=== PATIENT | male | born 1960 | race African-American/Black ===

== ENCOUNTER 2016-10-17 18:11 | Emergency (ER) | payer MEDICARE ==
[~2016-10-17] VITALS: Ht 170.2 cm; Wt 90.0 kg
[~2016-10-17 18:11] MED LIST: ALDA2525 PO; BACL10TA PO; CHOL4 PO; DOCU1CAP39 PO; KLOR20 PO; LORTA5 PO; MECL25 PO; MVI PO; NEUR100C PO; NIFE1TAB86 PO
[2016-10-17 18:28] VITALS: BP 177/64; PULSE 68; RESP 18; TEMP 98.4; O2SAT 99
--- NOTE | 2016-10-17 18:30 | PD ---
HPI Chief Complaint: Headache Time Seen by Provider: 18:30 Travel History International Travel<30 days: No Contact w/Intl Traveler<30days: No Traveled to known affect area: No History of Present Illness HPI 56-year-old male with no significant medical history presents to the emergency department today for evaluation of headache since this morning. Patient states that approximately an 8 out of 10, constant and generalized. Denies any focal deficits weakness. No visual disturbances. No recent illnesses, fever, or chills. No nuchal rigidity. Denies any nausea or vomiting. Per [facility] report, family is concerned and patient's increased lethargy throughout the day. PFSH Past Medical History Autoimmune Disease: No Cancer: No Cardiovascular Problems: Yes Diminished Hearing: No Endocrine: No Genitourinary: Yes (ENLARGED PROSTATE) Immune Disorder: No Inguinal Hernia: Yes (REPAIRED) Musculoskeletal: Yes Neurologic: Yes Psychiatric: Yes (MENTALLY RETARDED) Reproductive: No Respiratory: No Past Surgical History Body Medical Devices: CERVICAL PINS PLACED Neurologic Surgery: Yes (SURGERY ON HIS NECK?) Social History Alcohol Use: No Tobacco Use: No Substance Use: No Allergies-Medications (Allergen,Severity, Reaction): Coded Allergies: No Known Allergies (Verified , 10/17/16) Reported Meds & Prescriptions Reported Meds & Active Scripts Active No Active Prescriptions or Reported Medications Review of Systems Except as stated in HPI: all other systems reviewed are Neg Physical Exam Narrative GENERAL: Well-nourished male patient, lying in bed in no acute distress SKIN: Focused skin assessment warm/dry. HEAD: Atraumatic. Normocephalic. EYES: Pupils equal and round. No scleral icterus. No injection or drainage. ENT: No nasal bleeding or discharge. Mucous membranes pink and moist. NECK: Trachea midline. No JVD. CARDIOVASCULAR: Regular rate and rhythm. No murmur appreciated. RESPIRATORY: No accessory muscle use. Clear to auscultation. Breath sounds equal bilaterally. GASTROINTESTINAL: Abdomen soft, non-tender, nondistended. Hepatic and splenic margins not palpable. MUSCULOSKELETAL: No obvious deformities. No clubbing. No cyanosis. No edema. There is slight left upper extremity weakness when compared to right. Patient states this is chronic for him. NEUROLOGICAL: Awake and alert. No obvious cranial nerve deficits. Motor grossly within normal limits. Normal speech. PSYCHIATRIC: Appropriate mood and affect; insight and judgment normal. Data Data Last Documented VS Vital Signs Date Time Temp Pulse Resp B/P Pulse Ox O2 Delivery O2 Flow Rate FiO2 10/17/16 19:42 65 16 182/84 98 Room Air 10/17/16 18:46 2 10/17/16 18:28 98.4 Orders Complete Blood Count With Diff (10/17/16 18:40) Basic Metabolic Panel (Bmp) (10/17/16 18:40) Prothrombin Time / Inr (Pt) (10/17/16 18:40) Act Partial Throm Time (Ptt) (10/17/16 18:40) Ct Brain W/O Iv Contrast(Rout) (10/17/16 18:40) Ecg Monitoring (10/17/16 18:40) Iv Access Insert/Monitor (10/17/16 18:40) Oximetry (10/17/16 18:40) Sodium Chloride 0.9% Flush (Ns Flush) (10/17/16 18:45) Sodium Chlor 0.9% 1000 Ml Inj (Ns 1000 M (10/17/16 18:40) Electrocardiogram (10/17/16 ) Alcohol (Ethanol) (10/17/16 18:48) Ketorolac Inj (Toradol Inj) (10/17/16 20:00) Blood Glucose (10/17/16 20:35) Labs Laboratory Tests Test 10/17/16 18:48 White Blood Count 6.0 TH/MM3 Red Blood Count 4.95 MIL/MM3 Hemoglobin 13.2 GM/DL Hematocrit 40.8 % Mean Corpuscular Volume 82.5 FL Mean Corpuscular Hemoglobin 26.7 PG Mean Corpuscular Hemoglobin 32.3 % Concent Red Cell Distribution Width 14.5 % Platelet Count 198 TH/MM3 Mean Platelet Volume 8.8 FL Neutrophils (%) (Auto) 61.6 % Lymphocytes (%) (Auto) 27.8 % Monocytes (%) (Auto) 7.1 % Eosinophils (%) (Auto) 2.5 % Basophils (%) (Auto) 1.0 % Neutrophils # (Auto) 3.7 TH/MM3 Lymphocytes # (Auto) 1.7 TH/MM3 Monocytes # (Auto) 0.4 TH/MM3 Eosinophils # (Auto) 0.1 TH/MM3 Basophils # (Auto) 0.1 TH/MM3 CBC Comment DIFF FINAL Differential Comment Prothrombin Time 11.4 SEC Prothromb Time International 1.0 RATIO Ratio Activated Partial 26.4 SEC Thromboplast Time Sodium Level 137 MEQ/L Potassium Level 4.0 MEQ/L Chloride Level 102 MEQ/L Carbon Dioxide Level 26.6 MEQ/L Anion Gap 8 MEQ/L Blood Urea Nitrogen 14 MG/DL Creatinine 1.28 MG/DL Estimat Glomerular Filtration 70 ML/MIN Rate Random Glucose 70 MG/DL Calcium Level 9.0 MG/DL Ethyl Alcohol Level LESS THAN 3 MG/DL MDM Medical Decision Making Medical Screen Exam Complete: Yes Emergency Medical Condition: Yes Medical Record Reviewed: Yes Differential Diagnosis Headache, cluster versus tension versus migraine versus lymphoid abnormality versus dehydration versus intoxication Narrative Course 56-year-old male presents to the emergency department for evaluation of headache. Patient does have some left upper extremity weakness but states this is chronic since a fall. He otherwise appears without distress. No other focal deficits or weakness. CT of the brain is without acute intracranial abnormality. CBC is without acute concern. BMP is with glucose of 70. Patient's tolerating oral repletion of this. EtOH is less than 3. Repeat blood glucose is 92. Results are discussed with patient and his sister at bedside. He is discharged home at this time. Diagnosis Primary Impression: Headache Qualified Code: R51 - Acute nonintractable headache, unspecified headache type Additional Impression: Hypoglycemia Referrals: Primary Care Physician Patient Instructions: Acute Headache (ED), General Instructions, Non-diabetic Hypoglycemia (ED) Additional Instructions: Follow-up with a primary care provider Tylenol and/or ibuprofen as directed on the package as needed for fever and/or pain Return immediately with any acute worsening of symptoms Med/Other Pt SpecificInfo: No Change to Meds Scripts No Active Prescriptions or Reported Meds Disposition: 01 DISCHARGE HOME Condition: Stable Shayy Ferro CHANDRIKA Oct 17, 2016 18:30
[2016-10-17] MEDS ORDERED: SODIUM CHLOR 0.9% 1000 ML INJ 1,000 ML IV ONE (18:40)
[2016-10-17] MEDS ORDERED: SODIUM CHLORIDE 0.9% FLUSH 10 ML FLUSH IVF PRN (18:45)
[2016-10-17 18:46] VITALS: O2SAT 97
[2016-10-17 18:50] VITALS: BP 178/76; PULSE 63; RESP 24; O2SAT 97
[2016-10-17 19:14] LABS: AUTOMATED NEUTROPHIL # 3.7 TH/MM3 (1.8-7.7); BASOPHIL # 0.1 TH/MM3 (0-0.2); EOSINOPHIL # 0.1 TH/MM3 (0-0.4); EOSINOPHIL % 2.5 % (0.0-4.0); HEMATOCRIT 40.8 % (39.0-51.0); HEMO FLAGS DIFF FINAL; LYMPH % 27.8 % (9.0-44.0); LYMPHOCYTE # 1.7 TH/MM3 (1.0-4.8); MEAN CELL VOLUME 82.5 FL (80.0-100.0); MEAN CORPUSCULAR HEMOGLOBIN 26.7 PG (27.0-34.0); MEAN CORPUSCULAR HGB CONC 32.3 % (32.0-36.0); MONO % 7.1 % (0.0-8.0); NEUT % 61.6 % (16.0-70.0); PLATELET COUNT 198 TH/MM3 (150-450); RED BLOOD COUNT 4.95 MIL/MM3 (4.50-5.90); RED CELL DISTRIBUTION WIDTH 14.5 % (11.6-17.2)
[2016-10-17 19:26] LABS: ANION GAP 8 MEQ/L (5-15); BICARBONATE 26.6 MEQ/L (21.0-32.0); BLOOD UREA NITROGEN 14 MG/DL (7-18); CHLORIDE 102 MEQ/L (98-107); GLOMERULAR FILTRATION RATE 70 ML/MIN (>89); SODIUM (NA) 137 MEQ/L (136-145)
[2016-10-17 19:42] VITALS: BP 182/84; PULSE 65; RESP 16; O2SAT 98
[2016-10-17 19:42] LABS: APTT (PATIENT) 26.4 SEC (24.3-30.1); PROTHROMBIN TIME - PATIENT 11.4 SEC (9.8-11.6)
--- NOTE | 2016-10-17 19:51 | RADRPT ---
EXAM DATE/TIME: 10/17/2016 19:21 [facility] COMPARISON: CT BRAIN W/O CONTRAST, July 11, 2015, 12:44. INDICATIONS : Cephalgia since this am and increased lethargy. RADIATION DOSE: 49.74 CTDIvol (mGy) MEDICAL HISTORY : Cardiovascular disease. Hypertension. SURGICAL HISTORY : Fusion, cervical. ENCOUNTER: Initial ACUITY: 1 day PAIN SCALE: 8/10 LOCATION: cranial TECHNIQUE: Multiple contiguous axial images were obtained of the head. Using automated exposure control and adj ustment of the mA and/or kV according to patient size, radiation dose was kept as low as reasonably a chievable to obtain optimal diagnostic quality images. FINDINGS: CEREBRUM: The ventricles are normal for age. No evidence of midline shift, mass lesion, hemorrhage or acute in farction. No extra-axial fluid collections are seen. POSTERIOR FOSSA: The cerebellum and brainstem are intact. The 4th ventricle is midline. The cerebellopontine angle i s unremarkable. EXTRACRANIAL: The visualized portion of the orbits is intact. SKULL: The calvaria is intact. No evidence of skull fracture. CONCLUSION: Negative noncontrast head CT. Endy Bradford MD on October 17, 2016 at 19:49 Board Certified Radiologist. This report was verified electronically.
[2016-10-17] MEDS ORDERED: KETOROLAC TROMETHAMINE 30 MG/ML (IVP) VIAL IV PUSH ONE (20:00)
--- NOTE | 2016-10-18 17:55 | EKG ---
Date Performed: 10/17/2016 Time Performed: 18:44:13 PTAGE: 56 years EKG: Sinus rhythm POSSIBLE RIGHT VENTRICULAR CONDUCTION DELAY LEFT VENTRICULAR HYPERTROPHY AND ST-T CHANGE ST segment elevation is noted somewhat diffusely. Appears to have the apperance of early repolarization, althoug h pericarditis cannot be ruled out. Compared to prior study of 07/28/2015, these changes are more pro minent, although the rate is slower. Clinical correlation is recommended. ABNORMAL ECG PREVIOUS TRACING : 07/28/2015 06.25 DOCTOR: Lex Foote Interpretating Date/Time 10/18/2016 17:54:10
== END 2016-10-17 21:34 | disposition home or self-care (01) ==
LOC: NEPD 18:11
DX: R51 Headache (principal); E16.2 Hypoglycemia, unspecified; R53.83 Other fatigue; R94.31 Abnormal electrocardiogram [ECG] [EKG]; Z86.79 Personal history of other diseases of the circulatory system; Z87.438 Personal history of other diseases of male genital organs; Z87.39 Personal history of other diseases of the musculoskeletal system and connective tissue; Z86.59 Personal history of other mental and behavioral disorders
CPT/HCPCS: 70450; 80048; 80307; 85025; 85610; 85730; 93005; 96361; 96374; 99284; J1885; J7030

== ENCOUNTER 2017-03-05 21:50 | Emergency (ER) | payer MEDICARE ==
[~2017-03-05] VITALS: Ht 175.3 cm; Wt 114.0 kg
[2017-03-05 22:48] LABS: BLOOD, URINE LARGE (NEG); COMMENT (UR) CULTURE INDICATED; CULTURE IF INDICATED CULTURE INDICATED; GLUCOSE,URINE TRACE mg/dL (NEG); KETONE, URINE NEG (NEG); NITRITE,URINE NEG (NEG); URINE COLOR DARK-RED (YELLW/STRAW)
--- NOTE | 2017-03-05 23:15 | PD ---
HPI Chief Complaint: Complaint Time Seen by Provider: 23:13 Travel History International Travel<30 days: No Contact w/Intl Traveler<30days: No Traveled to known affect area: No History of Present Illness HPI C/O 2 DAYS OF HEMATURIA, DYSURIA, FREQUENCY, NO ALLEVIATING/AGGRAVATING FACTORS....DENIES FEVER/COUGH/N/V/D/ PFSH Past Medical History Autoimmune Disease: No Cancer: No Cardiovascular Problems: Yes Diminished Hearing: No Endocrine: No Gastrointestinal Disorders: No Genitourinary: Yes (ENLARGED PROSTATE) Hypertension: Yes Immune Disorder: No Inguinal Hernia: Yes (REPAIRED) Implanted Vascular Access Dvce: Yes Musculoskeletal: Yes Neurologic: Yes Psychiatric: Yes (MENTALLY RETARDED) Reproductive: No Respiratory: No Past Surgical History Body Medical Devices: CERVICAL PINS PLACED Neurologic Surgery: Yes (SURGERY ON HIS NECK) Other Surgery: Yes Social History Alcohol Use: Yes Tobacco Use: No Substance Use: No Allergies-Medications (Allergen,Severity, Reaction): Coded Allergies: No Known Allergies (Verified , 03/05/17) Reported Meds & Prescriptions Reported Meds & Active Scripts Active Flomax (Tamsulosin HCl) 0.4 Mg Cap 0.4 Mg PO HS Cipro (Ciprofloxacin HCl) 500 Mg Tab 500 Mg PO BID Reported Gabapentin 300 Mg Cap 300 Mg PO DAILY Review of Systems Except as stated in HPI: all other systems reviewed are Neg Genitourinary: Positive: Urgency, Frequency, Dysuria Physical Exam Narrative GENERAL: SKIN: Warm and dry. HEAD: Atraumatic. Normocephalic. EYES: Pupils equal and round. No scleral icterus. No injection or drainage. ENT: No nasal bleeding or discharge. Mucous membranes pink and moist. NECK: Trachea midline. No JVD. CARDIOVASCULAR: Regular rate and rhythm. RESPIRATORY: No accessory muscle use. Clear to auscultation. Breath sounds equal bilaterally. GASTROINTESTINAL: Abdomen soft, non-tender, nondistended. MUSCULOSKELETAL: Extremities without clubbing, cyanosis, or edema. No obvious deformities. NEUROLOGICAL: Awake and alert. No obvious cranial nerve deficits. Motor grossly within normal limits. Five out of 5 muscle strength in the arms and legs. Normal speech. PSYCHIATRIC: Appropriate mood and affect; insight and judgment normal. Data Data Orders Orders Urinalysis - C+S If Indicated (03/05/17 21:57) Urine Culture (03/05/17 22:00) Ceftriaxone Inj (Rocephin Inj) (03/06/17 00:15) Labs Laboratory Tests Test 03/05/17 22:00 Urine Color DARK-RED Urine Turbidity CLOUDY Urine pH 6.0 Urine Specific [place] 1.031 Urine Protein 100 mg/dL Urine Glucose (UA) TRACE mg/dL Urine Ketones NEG mg/dL Urine Occult Blood LARGE Urine Nitrite NEG Urine Bilirubin NEG Urine Urobilinogen LESS THAN 2.0 MG/DL Urine Leukocyte Esterase NEG Urine RBC /hpf Urine WBC /hpf Microscopic Urinalysis Comment CULTURE INDICATED MDM Medical Decision Making Medical Screen Exam Complete: Yes Emergency Medical Condition: Yes Medical Record Reviewed: Yes Differential Diagnosis UTI Narrative Course ua showed not only rbc's but also bacteria and wbc's c/w infection. no history of any severe pain given by patient nor caretaking familty at bedside. therefore unlikely to be renal stone, however advised to follow up with urologist for further evalation and to ensure there is no hidden bladder malignancy either. Diagnosis Primary Impression: UTI Patient Instructions: General Instructions, Urinary Tract Infection in Men (DC) Additional Instructions: please call and make outpatient follow up with [facility] for further reevaluation and care. Scripts Tamsulosin (Flomax) 0.4 Mg Cap 0.4 MG PO HS for Manage Prostate Problems, #5 CAP 0 Refills Prov: Casey Pelaez MD 03/05/17 Ciprofloxacin (Cipro) 500 Mg Tab 500 MG PO BID for Infection, #14 TAB 0 Refills Prov: Casey Pelaez MD 03/05/17 Disposition: 01 DISCHARGE HOME Condition: Stable Casey Pelaez MD Mar 05, 2017 23:15
[2017-03-05] MEDS ORDERED: CIPR-9 PO (23:26)
[2017-03-05] MEDS ORDERED: TAMS5CAP PO (23:26)
[2017-03-05] MEDS ORDERED: GABA300C5 PO (23:49)
[2017-03-06] MEDS ORDERED: cefTRIAXone 500 MG VIAL IM ONE (00:15)
[2017-03-29] MEDS ORDERED: GABA300C5 PO (10:52)
== END 2017-03-06 00:43 | disposition home or self-care (01) ==
LOC: NEPD 21:50
DX: N39.0 Urinary tract infection, site not specified (principal); I10 Essential (primary) hypertension; N40.0 Benign prostatic hyperplasia without lower urinary tract symptoms; F79 Unspecified intellectual disabilities; Z79.899 Other long term (current) drug therapy
CPT/HCPCS: 81001; 87086; 96372; 99284; J0696

== ENCOUNTER 2017-03-20 16:51 | Inpatient (IN) | payer MEDICARE ==
[~2017-03-20] VITALS: Ht 172.7 cm; Wt 114.2 kg
[~2017-03-20 16:51] MED LIST changes: -ALDA2525 PO; -BACL10TA PO; -CHOL4 PO; +CIPR-9 PO; -DOCU1CAP39 PO; +GABA300C5 PO; -KLOR20 PO; -LORTA5 PO; -MECL25 PO; -MVI PO; -NEUR100C PO; -NIFE1TAB86 PO; +TAMS5CAP PO
[2017-03-20] MEDS ORDERED: IOHEXOL 350 MG/ML 10 ML VIAL (for RAD DIAG) IVCONTRAST ONE (16:52)
[2017-03-20 16:53] VITALS: BP 136/79; PULSE 102; RESP 20; TEMP 97.9; O2SAT 97
--- NOTE | 2017-03-20 17:00 | PD ---
Physical Exam Time Seen by Provider: 16:58 Narrative 56 y/o male here for evaluation of abdominal pain, hematuria, R leg swelling, dysuria. Vital signs reviewed. Seen at triage desk. Awaiting bed placement. Data Data Last Documented VS Vital Signs Date Time Temp Pulse Resp B/P (MAP) Pulse Ox O2 Delivery O2 Flow Rate FiO2 03/20/17 16:53 97.9 102 20 136/79 (98) 97 Room Air [facility] Medical Record Reviewed: Yes Supervised Visit with ALESHA: Nelson Wagner Mar 20, 2017 17:00
--- NOTE | 2017-03-20 19:22 | PD ---
HPI Chief Complaint: Complaint Time Seen by Provider: 19:21 Travel History International Travel<30 days: No Contact w/Intl Traveler<30days: No Traveled to known affect area: No History of Present Illness HPI 56-year-old male presents to the emergency department for evaluation of hematuria, dysuria, abdominal pain, constipation and swelling in his lower legs. Patient states the urinary symptoms started 2 weeks ago however the abdominal pain started a couple days ago. Patient denies any chest pain, shortness of breath, fever, chills, malaise, nausea, diarrhea or lightheadedness. PFSH Past Medical History Autoimmune Disease: No Cancer: No Cardiovascular Problems: Yes Diminished Hearing: No Endocrine: No Gastrointestinal Disorders: No Genitourinary: Yes (ENLARGED PROSTATE) Hypertension: Yes Immune Disorder: No Inguinal Hernia: Yes (REPAIRED) Implanted Vascular Access Dvce: Yes Musculoskeletal: Yes Neurologic: Yes Psychiatric: Yes (MENTALLY RETARDED) Reproductive: No Respiratory: No Past Surgical History Body Medical Devices: CERVICAL PINS PLACED Neurologic Surgery: Yes (SURGERY ON HIS NECK) Other Surgery: Yes Social History Alcohol Use: Yes Tobacco Use: No Substance Use: No Allergies-Medications (Allergen,Severity, Reaction): Coded Allergies: No Known Allergies (Verified , 03/20/17) Reported Meds & Prescriptions Reported Meds & Active Scripts Active Review of Systems Except as stated in HPI: all other systems reviewed are Neg Physical Exam Narrative GENERAL: Well-nourished well-developed 56-year-old male in no acute distress SKIN: Focused skin assessment warm/dry. HEAD: Atraumatic. Normocephalic. EYES: Pupils equal and round. No scleral icterus. No injection or drainage. ENT: No nasal bleeding or discharge. Mucous membranes pink and moist. NECK: Trachea midline. No JVD. CARDIOVASCULAR: Regular rate and rhythm. No murmur appreciated. RESPIRATORY: No accessory muscle use. Clear to auscultation. Breath sounds equal bilaterally. GASTROINTESTINAL: Abdomen round and tender. Hepatic and splenic margins not palpable. MUSCULOSKELETAL: 1+ pitting edema bilateral lower extremities. No obvious deformities. No clubbing. No cyanosis. NEUROLOGICAL: Awake and alert. No obvious cranial nerve deficits. Motor grossly within normal limits. Normal speech. PSYCHIATRIC: Appropriate mood and affect; insight and judgment normal. Data Data Last Documented VS Vital Signs Date Time Temp Pulse Resp B/P (MAP) Pulse Ox O2 Delivery O2 Flow Rate FiO2 9/27/17 22:44 75 15 112/57 (75) Room Air 03/20/17 20:10 97 03/20/17 16:53 97.9 Orders Orders Complete Blood Count With Diff (03/20/17 19:22) Comprehensive Metabolic Panel (03/20/17 19:22) Urinalysis - C+S If Indicated (03/20/17 19:22) Ct Abd/Pel W Iv Contrast(Rout) (03/20/17 19:22) Iv Access Insert/Monitor (03/20/17 19:22) Ecg Monitoring (03/20/17 19:22) Oximetry (03/20/17 19:22) Sodium Chloride 0.9% Flush (Ns Flush) (03/20/17 19:30) Electrocardiogram (03/20/17 19:22) Gc And Chlamydia Pcr (03/20/17 19:22) B-Type Natriuretic Peptide (03/20/17 19:22) Us Leg Venous Doppler Bilat (03/20/17 ) Cath For Specimen (03/20/17 20:42) Iohexol 350 Inj (Omnipaque 350 Inj) (03/20/17 16:52) Urine Culture (03/20/17 19:40) Bladder/Catheter Irrigation (03/20/17 23:33) Admit Order (Ed Use Only) (03/21/17 01:17) Labs Laboratory Tests Test 03/20/17 19:40 03/20/17 20:05 03/20/17 21:40 Urine Color RED Urine Turbidity CLOUDY Urine pH GREATER THAN 9.0 Urine Specific [place] 1.033 Urine Protein 300 OR GREATER mg/dL Urine Glucose (UA) 250 mg/dL Urine Ketones 160 OR GREATER mg/dL Urine Occult Blood LARGE Urine Nitrite POS Urine Bilirubin NEG Urine Urobilinogen GREATER THAN 8.0 MG/DL Urine Leukocyte Esterase LARGE Urine RBC INNUM /hpf Urine WBC 3-5 /hpf Urine Squamous Epithelial Cells 0-5 /hpf Urine Bacteria OCC /hpf Microscopic Urinalysis Comment CULTURE INDICATED White Blood Count 11.0 TH/MM3 Red Blood Count 4.83 MIL/MM3 Hemoglobin 13.0 GM/DL Hematocrit 40.3 % Mean Corpuscular Volume 83.5 FL Mean Corpuscular Hemoglobin 27.0 PG Mean Corpuscular Hemoglobin Concent 32.4 % Red Cell Distribution Width 14.8 % Platelet Count 262 TH/MM3 Mean Platelet Volume 8.2 FL Neutrophils (%) (Auto) 78.2 % Lymphocytes (%) (Auto) 17.0 % Monocytes (%) (Auto) 3.9 % Eosinophils (%) (Auto) 0.3 % Basophils (%) (Auto) 0.6 % Neutrophils # (Auto) 8.6 TH/MM3 Lymphocytes # (Auto) 1.9 TH/MM3 Monocytes # (Auto) 0.4 TH/MM3 Eosinophils # (Auto) 0.0 TH/MM3 Basophils # (Auto) 0.1 TH/MM3 CBC Comment AUTO DIFF Differential Comment AUTO DIFF CONFIRMED Platelet Estimate NORMAL Platelet Morphology Comment NORMAL Blood Urea Nitrogen 16 MG/DL Creatinine 1.44 MG/DL Random Glucose 89 MG/DL Total Protein 8.1 GM/DL Albumin 3.9 GM/DL Calcium Level 9.1 MG/DL Alkaline Phosphatase 50 U/L Aspartate Amino Transf (AST/SGOT) 38 U/L Alanine Aminotransferase (ALT/SGPT) 32 U/L Total Bilirubin 1.1 MG/DL Sodium Level 136 MEQ/L Potassium Level 5.0 MEQ/L Chloride Level 102 MEQ/L Carbon Dioxide Level 27.1 MEQ/L Anion Gap 7 MEQ/L Estimat Glomerular Filtration Rate 61 ML/MIN B-Type Natriuretic Peptide 14 PG/ML Chlamydia trachomatis DNA (PCR) NOT DETECTED Neisseria gonorrhoeae DNA (PCR) NOT DETECTED MDM Medical Decision Making Medical Screen Exam Complete: Yes Emergency Medical Condition: Yes Medical Record Reviewed: Yes Differential Diagnosis Differential diagnoses include but are not limited to appendicitis, DVT, UTI, nephrolithiasis, STI Narrative Course 56-year-old male presents emergency department for evaluation of hematuria, dysuria, abdominal pain and bilateral leg swelling. Patient denies any chest pain, shortness breath, fever, chills, malaise or lightheadedness. CBC, CMP, BNP, GC chlamydia on urine, UA, ultrasound of bilateral lower extremities, CT of the abdomen with contrast ordered and pending. CBC shows no acute abnormalities CMP shows no acute abnormalities BNP within normal limits at 14 US of bilateral lower extremities was negative for DVT in either lower extremity Patient stable at this time. GC chlamydia on Urine, UA and CT ABD with contrast still pending at this time. Dr Vogt assumed care of this patient. Please his is documentation for further details and disposition. Andressa Stoll Mar 20, 2017 19:22
[2017-03-20] MEDS ORDERED: SODIUM CHLORIDE 0.9% FLUSH 10 ML FLUSH IV FLUSH PRN (19:30)
[2017-03-20 20:10] VITALS: RESP 18; O2SAT 97
[2017-03-20 20:36] LABS: AUTOMATED NEUTROPHIL # 8.6 TH/MM3 (1.8-7.7); BASOPHIL # 0.1 TH/MM3 (0-0.2); BASOPHIL % 0.6 % (0.0-2.0); EOSINOPHIL % 0.3 % (0.0-4.0); HEMATOCRIT 40.3 % (39.0-51.0); LYMPHOCYTE # 1.9 TH/MM3 (1.0-4.8); MEAN CELL VOLUME 83.5 FL (80.0-100.0); MEAN CORPUSCULAR HGB CONC 32.4 % (32.0-36.0); MONO % 3.9 % (0.0-8.0); NEUT % 78.2 % (16.0-70.0); PLATELET COUNT 262 TH/MM3 (150-450); RED BLOOD COUNT 4.83 MIL/MM3 (4.50-5.90); RED CELL DISTRIBUTION WIDTH 14.8 % (11.6-17.2)
[2017-03-20 20:37] LABS: HEMO FLAGS AUTO DIFF
[2017-03-20 21:00] LABS: ALKALINE PHOSPHATASE 50 U/L (45-117); ALT (GPT) 32 U/L (12-78); TOTAL BILIRUBIN ADULT 1.1 MG/DL (0.2-1.0)
[2017-03-20 21:07] LABS: PLATELET ESTIMATE SMEAR NORMAL (NORMAL); PLATELET MORPHOLOGY NORMAL (NORMAL); SCAN/DIFF AUTO DIFF CONFIRMED
[2017-03-20 21:09] LABS: ANION GAP 7 MEQ/L (5-15); AST (GOT) 38 U/L (15-37); BICARBONATE 27.1 MEQ/L (21.0-32.0); BLOOD UREA NITROGEN 16 MG/DL (7-18); CHLORIDE 102 MEQ/L (98-107); GLOMERULAR FILTRATION RATE 61 ML/MIN (>89); SODIUM (NA) 136 MEQ/L (136-145)
--- NOTE | 2017-03-20 21:35 | RADRPT ---
EXAM DATE/TIME: 03/20/2017 20:37 [facility] COMPARISON: No previous studies available for comparison. INDICATIONS : Bilateral leg swelling. MEDICAL HISTORY : Hypertension. Prostate enlargement. Hernia, inguinal. Spinal stenosis. SURGICAL HISTORY : Neck surgery. Hernia repair, inguinal. Cervical laminectomy. ENCOUNTER: Initial ACUITY: 2 weeks PAIN SCORE: 8/10 LOCATION: Bilateral legs. TECHNIQUE: Venous ultrasound of the left and right leg was performed from the inguinal ligament to the proximal calf. Real-time, color Doppler and spectral tracing, compression and augmentation techniques were us ed. FINDINGS: RIGHT LEG: There is normal compressibility of the deep venous system from the inguinal region to the proximal ca lf. No echogenic clot is seen in the lumen of the common femoral, femoral, popliteal, and posterior tibial veins. There is a normal response of the venous system to proximal and distal augmentation an d respiration. LEFT LEG: There is normal compressibility of the deep venous system from the inguinal region to the proximal ca lf. No echogenic clot is seen in the lumen of the common femoral, femoral, popliteal, and posterior tibial veins. There is a normal response of the venous system to proximal and distal augmentation an d respiration. CONCLUSION: No DVT demonstrated of either lower extremity. Endy Bradford MD on March 20, 2017 at 21:33 Board Certified Radiologist. This report was verified electronically.
[2017-03-20 22:44] VITALS: BP 112/57; PULSE 75; RESP 15
--- NOTE | 2017-03-20 22:58 | RADRPT ---
EXAM DATE/TIME: 03/20/2017 22:26 [facility] COMPARISON: CT ABDOMEN & PELVIS W/O CONTRAST, August 16, 2011, 12:03. INDICATIONS : Patient complains of abdominal pain. IV CONTRAST: 100 cc Omnipaque 350 (iohexol) IV ORAL CONTRAST: No oral contrast ingested. RADIATION DOSE: 13.79 CTDIvol (mGy) MEDICAL HISTORY : Cardiovascular disease. Hypertension. SURGICAL HISTORY : Inguinal hernia repair. ENCOUNTER: Initial ACUITY: 1 month PAIN SCALE: 10/10 LOCATION: abdomen TECHNIQUE: Volumetric scanning of the abdomen and pelvis was performed. Using automated exposure control and ad justment of the mA and/or kV according to patient size, radiation dose was kept as low as reasonably achievable to obtain optimal diagnostic quality images. DICOM format image data is available electro nically for review and comparison. FINDINGS: Liver is fatty infiltrated. Spleen, pancreas and adrenal glands are within normal limits. Scattered, mostly small cysts are seen of both kidneys. A more dominant 3 cm cyst is seen of the left upper pole . No stones or obstruction on either side. No obstruction or acute inflammatory changes are seen of the gastrointestinal tract. Massively enlarged and heterogeneous, mostly intermediate attenuation prostate seen, measures approxi mately 7.4 x 7.4 x 8.3 cm. There is a similar attenuation mass measuring at least 12.4 cm in size. Th is may be intracystic continuation of the enlarged prostate, a separate bladder mass or hemorrhage wi thin the bladder. The bladder is distended. CONCLUSION: 1. Massively enlarged and potentially hemorrhagic prostate. 2. Hemorrhage or mass suspected in the urinary bladder. 3. No other acute abnormalities are seen. Liver is fatty infiltrated and there are benign bilateral r enal cysts. Endy Bradford MD on March 20, 2017 at 22:51 Board Certified Radiologist. This report was verified electronically.
[2017-03-20 23:08] LABS: GLUCOSE,URINE 250 mg/dL (NEG); PH, URINE GREATER THAN 9.0 (5.0-8.5); URINE COLOR RED (YELLW/STRAW)
[2017-03-20 23:09] LABS: BLOOD, URINE LARGE (NEG); KETONE, URINE 160 OR GREATER mg/dL (NEG); NITRITE,URINE POS (NEG); RBC, URINE INNUM /hpf (0-3); SQUAMOUS EPITHELIAL CELL URINE 0-5 /hpf (0-5)
[2017-03-20 23:10] LABS: BACTERIA, URINE OCC /hpf; COMMENT (UR) CULTURE INDICATED; CULTURE IF INDICATED CULTURE INDICATED
[2017-03-21] VITALS (9 sets, daily range): BP systolic 100–121; BP diastolic 56–65; PULSE 59–80; RESP 18–20; TEMP 96.5–97.8; O2SAT 94–100
--- NOTE | 2017-03-21 00:14 | PD ---
Data Data Last Documented VS Vital Signs Date Time Temp Pulse Resp B/P (MAP) Pulse Ox O2 Delivery O2 Flow Rate FiO2 03/20/17 22:44 75 15 112/57 (75) Room Air 03/20/17 20:10 97 03/20/17 16:53 97.9 Orders Orders Complete Blood Count With Diff (03/20/17 19:22) Comprehensive Metabolic Panel (03/20/17 19:22) Urinalysis - C+S If Indicated (03/20/17 19:22) Ct Abd/Pel W Iv Contrast(Rout) (03/20/17 19:22) Iv Access Insert/Monitor (03/20/17 19:22) Ecg Monitoring (03/20/17 19:22) Oximetry (03/20/17 19:22) Sodium Chloride 0.9% Flush (Ns Flush) (03/20/17 19:30) Electrocardiogram (03/20/17 19:22) Gc And Chlamydia Pcr (03/20/17 19:22) B-Type Natriuretic Peptide (03/20/17 19:22) Us Leg Venous Doppler Bilat (03/20/17 ) Cath For Specimen (03/20/17 20:42) Iohexol 350 Inj (Omnipaque 350 Inj) (03/20/17 16:52) Urine Culture (03/20/17 19:40) Bladder/Catheter Irrigation (03/20/17 23:33) Admit Order (Ed Use Only) (03/21/17 01:17) Labs Laboratory Tests Test 03/20/17 19:40 03/20/17 20:05 03/20/17 21:40 Urine Color RED Urine Turbidity CLOUDY Urine pH GREATER THAN 9.0 Urine Specific [place] 1.033 Urine Protein 300 OR GREATER mg/dL Urine Glucose (UA) 250 mg/dL Urine Ketones 160 OR GREATER mg/dL Urine Occult Blood LARGE Urine Nitrite POS Urine Bilirubin NEG Urine Urobilinogen GREATER THAN 8.0 MG/DL Urine Leukocyte Esterase LARGE Urine RBC INNUM /hpf Urine WBC 3-5 /hpf Urine Squamous Epithelial Cells 0-5 /hpf Urine Bacteria OCC /hpf Microscopic Urinalysis Comment CULTURE INDICATED White Blood Count 11.0 TH/MM3 Red Blood Count 4.83 MIL/MM3 Hemoglobin 13.0 GM/DL Hematocrit 40.3 % Mean Corpuscular Volume 83.5 FL Mean Corpuscular Hemoglobin 27.0 PG Mean Corpuscular Hemoglobin Concent 32.4 % Red Cell Distribution Width 14.8 % Platelet Count 262 TH/MM3 Mean Platelet Volume 8.2 FL Neutrophils (%) (Auto) 78.2 % Lymphocytes (%) (Auto) 17.0 % Monocytes (%) (Auto) 3.9 % Eosinophils (%) (Auto) 0.3 % Basophils (%) (Auto) 0.6 % Neutrophils # (Auto) 8.6 TH/MM3 Lymphocytes # (Auto) 1.9 TH/MM3 Monocytes # (Auto) 0.4 TH/MM3 Eosinophils # (Auto) 0.0 TH/MM3 Basophils # (Auto) 0.1 TH/MM3 CBC Comment AUTO DIFF Differential Comment AUTO DIFF CONFIRMED Platelet Estimate NORMAL Platelet Morphology Comment NORMAL Blood Urea Nitrogen 16 MG/DL Creatinine 1.44 MG/DL Random Glucose 89 MG/DL Total Protein 8.1 GM/DL Albumin 3.9 GM/DL Calcium Level 9.1 MG/DL Alkaline Phosphatase 50 U/L Aspartate Amino Transf (AST/SGOT) 38 U/L Alanine Aminotransferase (ALT/SGPT) 32 U/L Total Bilirubin 1.1 MG/DL Sodium Level 136 MEQ/L Potassium Level 5.0 MEQ/L Chloride Level 102 MEQ/L Carbon Dioxide Level 27.1 MEQ/L Anion Gap 7 MEQ/L Estimat Glomerular Filtration Rate 61 ML/MIN B-Type Natriuretic Peptide 14 PG/ML Chlamydia trachomatis DNA (PCR) NOT DETECTED Neisseria gonorrhoeae DNA (PCR) NOT DETECTED MDM Supervised Visit with AELSHA: Yes Narrative Course I, Dr. Vogt, have reviewed the advance practice practitioner's documentation and am in agreement, met with the patient face to face, made the diagnosis, and the medical decision making was done by me. See her note for further details. Briefly this is a 56-year-old male who is here for evaluation of 3 weeks of gross hematuria. She presented to the emergency department on 02/02/17 2 days after the hematuria had began. He was noted to have gross hematuria and possibly a UTI and was discharged home with antibiotics with instructions to follow-up with urology. He has had continued gross hematuria. Today he has been having lower abdominal discomfort and describes difficulty urinating. No fevers. No vomiting. He is not on any antiplatelets or anticoagulants. Denies any known history of cancer such as prostate or bladder cancer. Patient also reports having bilateral lower extremity edema and discomfort. Vital signs show heart rate 75, blood pressure 112/57, pulse ox 97% on room air , oral temp of 97.9F. CBC shows WBC 11, hemoglobin 13, hematocrit 40.3, platelets 262 CMP is remarkable for creatinine 1.44, GFR 61. BNP is 14. UA shows red cloudy urine with large occult blood, positive nitrites, large leukocyte esterase, innumerable rbc's, 3-5 WBCs. Bilateral lower family duplex is negative for DVT. CT abdomen pelvis: CONCLUSION: 1. Massively enlarged and potentially hemorrhagic prostate. 2. Hemorrhage or mass suspected in the urinary bladder. 3. No other acute abnormalities are seen. Liver is fatty infiltrated and there are benign bilateral renal cysts. Case discussed with on-call urologist Dr. Patel. Initially plan was to have the patient discharged and follow-up in his office tomorrow, however the patient is unable to urinate, and bedside ultrasound shows a distended/full bladder. Despite several times to urinate on his own, the patient is unable to produce any urine. Plan is to place a 3-way Bryan catheter and perform CBI. If urine becomes clear, the patient will be discharged home to follow up with urology tomorrow. If the urine does not become clear, he will be admitted for inpatient urology evaluation. 24 [place] 3-way Bryan catheter was placed, and initially put out 200 cc of gross hematuria. Catheter required flushing several times with removal of several dark clots before urine/gross hematuria flowed freely. CBI was initiated. Urine turned from dark red to light red after about 1500 cc of gross hematuria. The bryan clotted several more times requiring several more flushes. CBI will be continued and the patient will be admitted to the hospitalist service. Case discussed with hospitalist Dr Springer who will admit the patient to her service. The patient and the patient's sister who is at the bedside and is his primary director of software development were made aware of all findings and plan for admission. Diagnosis Primary Impression: Gross hematuria Additional Impression: Urinary retention Admitting Information Admitting Physician Requests: Ramin Fair MD Mar 21, 2017 00:13
[2017-03-21] MEDS ORDERED: NALOXONE HCL 0.4 MG/ML AMP IV PUSH PRN ×2 (01:15→08:45)
[2017-03-21] MEDS ORDERED: SODIUM CHLORIDE 0.9% FLUSH 10 ML FLUSH IV FLUSH PRN (01:15)
[2017-03-21 01:25] LABS: CHLAMYDIA PCR NOT DETECTED (NOT DETECT); NEISSERIA PCR NOT DETECTED (NOT DETECT)
[2017-03-21] MEDS: SODIUM CHLOR 0.9% 1000 ML INJ 1,000 ML IV SCH ×2 (01:56→03:55)
[2017-03-21 07:37] LABS: AUTOMATED NEUTROPHIL # 6.8 TH/MM3 (1.8-7.7); BASOPHIL # 0.1 TH/MM3 (0-0.2); BASOPHIL % 0.7 % (0.0-2.0); EOSINOPHIL # 0.1 TH/MM3 (0-0.4); EOSINOPHIL % 0.9 % (0.0-4.0); HEMATOCRIT 33.9 % (39.0-51.0); HEMO FLAGS DIFF FINAL; LYMPH % 32.1 % (9.0-44.0); LYMPHOCYTE # 3.7 TH/MM3 (1.0-4.8); MEAN CORPUSCULAR HEMOGLOBIN 27.2 PG (27.0-34.0); MEAN CORPUSCULAR HGB CONC 32.8 % (32.0-36.0); MONO % 7.9 % (0.0-8.0); NEUT % 58.4 % (16.0-70.0); PLATELET COUNT 212 TH/MM3 (150-450); RED BLOOD COUNT 4.08 MIL/MM3 (4.50-5.90); RED CELL DISTRIBUTION WIDTH 14.5 % (11.6-17.2); WHITE BLOOD COUNT 11.5 TH/MM3 (4.0-11.0)
--- NOTE | 2017-03-21 07:38 | EKG ---
Date Performed: 03/20/2017 Time Performed: 20:20:29 PTAGE: 56 years EKG: Sinus rhythm LEFT VENTRICULAR HYPERTROPHY AND ST-T CHANGE ABNORMAL ECG Since PREVIOUS TRACING , no significant change noted PREVIOUS TRACIN10/17/2016 18.44 DOCTOR: Dinorah Mark Interpretating Date/Time 03/21/2017 07:37:04
[2017-03-21] MEDS: SODIUM CHLORIDE 0.9% FLUSH 10 ML FLUSH IV FLUSH SCH ×2 (07:52→21:00)
[2017-03-21 07:55] LABS: BICARBONATE 26.9 MEQ/L (21.0-32.0); POTASSIUM 3.6 MEQ/L (3.5-5.1)
[2017-03-21] MEDS ORDERED: BISACODYL 10 MG SUPP RECTAL PRN (08:45)
[2017-03-21] MEDS ORDERED: MORPHINE SULFATE 4 MG/ML INJ IV PUSH PRN (08:45)
[2017-03-21] MEDS ORDERED: ACETAMINOPHEN/HYDROcodone 325 MG/5 MG TAB PO PRN (08:45)
[2017-03-21] MEDS ORDERED: ACETAMINOPHEN 325 MG TAB PO PRN ×2 (08:45)
[2017-03-21] MEDS ORDERED: SENNOSIDES 8.6 MG TAB PO PRN (08:45)
[2017-03-21] MEDS ORDERED: MAGNESIUM HYDROXIDE SUSP 30 ML CUP PO PRN (08:45)
[2017-03-21] MEDS ORDERED: ONDANSETRON HCL 4 MG/2 ML VIAL IVP PRN (08:45)
[2017-03-21] MEDS: DOCUSATE SODIUM 50 MG/SENNA 8.6 MG TAB PO SCH ×2 (09:00→20:55)
[2017-03-21] MEDS ORDERED: METOCLOPRAMIDE HCL 10 MG/2 ML VIAL ONE (10:31)
[2017-03-21] MEDS ORDERED: MIDAZOLAM HCL 2 MG/2 ML VIAL ONE (10:31)
[2017-03-21] MEDS ORDERED: FAMOTIDINE 20 MG/2 ML VIAL ONE (10:31)
--- NOTE | 2017-03-21 10:40 | MB ---
cc: MARCI GIORDANO DATE OF CONSULTATION 03/20/2017 REASON FOR CONSULTATION Mr. Mcintosh is a 56-year-old black male with a history of ongoing gross hematuria over the last four to [address] scan in the emergency room demonstrated a very enlarged prostate with a large amount of clot within the bladder. The patient was unable to urinate and a Saxena catheter was inserted and he was started on continuous bladder irrigation. He denies any bleeding disorders or infections. He does note a history of nocturia every hour for quite some time with straining to urinate. He denies any infections. PAST MEDICAL HISTORY His medical history includes learning disability, but he denies any significant medical problems. PAST SURGICAL HISTORY Notable for: 1. Cervical pins placed 2. Surgery on his neck. SOCIAL HISTORY He denies any significant social history. FAMILY HISTORY He denies any family history of prostate cancer. ALLERGIES He has NO KNOWN DRUG ALLERGIES. MEDICATIONS For medications, please refer to the chart. REVIEW OF SYSTEMS He notes gross hematuria with straining to urinate and nocturia every hour. Denies any chest pain or shortness of breath, diarrhea, constipation, gait disturbances, bleeding disorders. The remaining review of systems were performed and were negative. PHYSICAL EXAM VITAL SIGNS: Temperature 97.6, heart rate 69, respiratory 18, blood pressure 121/56. GENERAL: He is a well-developed, well-nourished 56-year-old male in no acute distress. HEENT: Normocephalic, atraumatic. Pupils equal, round, and reactive to light. Extraocular movements intact. Eyes: no icterus Ears: normal NECK: Supple. trachea midline HEART: Regular rate and rhythm. S1S2 LUNGS: Clear. ABDOMEN: Soft, nontender, distended. : Saxena catheter is in place draining bloody urine on continuous bladder irrigation. EXTREMITIES: Show no cyanosis, clubbing or edema. Psych: slight mental retardation Neuro: CNII-XII intact MS: neck midline Skin: no lesions Rectum: normal tone LABORATORY DATA White count 11.5, hemoglobin to 11.1, hematocrit 33.9, platelet count of 212. Sodium 138, potassium 3.6, chloride 104, CO2 26.9, BUN of 16, creatinine 1.25, glucose of 84. Urinalysis shows innumerable red cells, nitrite is positive. CT scan demonstrates a massively enlarged and potentially hemorrhagic prostate. Hemorrhage or mass suspected in the urinary bladder. ASSESSMENT This is a 56-year-old male with ongoing gross hematuria with clot retention and clot versus mass within the location of the urinary bladder. RECOMMENDATIONS Cystoscopy, clot evacuation, possible fulguration, continue n.p.o. Thank you for the consult and allowing me to participate in the care of this patient. Marci SAAVEDRA /10:01 AM /10:32 AM ACE
--- NOTE | 2017-03-21 10:55 | HHI.HP ---
HPI Service [facility] Primary Care Physician Phil Polanco DO Admission Diagnosis Gross hematuria, urinary retention Diagnoses: Chief Complaint: Hematuria Travel History International Travel<30 Days: No Contact w/Intl Traveler <30 Da: No Traveled to Known Affected Are: No History of Present Illness This is a 56-year-old male with a history of hypertension, mental retardation and enlarged prostate. Patient was seen in the emergency department over 2 weeks ago for hematuria and was diagnosed with UTI and prescribed ciprofloxacin and Flomax. Patient reports of persistent hematuria with onset of constant severe sharp lower elbow pain worse when he urinates for the past 2 days associated with dysuria and constipation. Ultrasound shows hemorrhagic prostate and hemorrhage or mass in the urinary bladder. Case discussed with urology who will take patient to the OR for cystoscopy later today. At this time patient has no complaints agrees with plans. All other systems reviewed negative Review of Systems Except as stated in HPI: all other systems reviewed are Neg Past Family Social History Past Medical History As mentioned Past Surgical History Inguinal hernia repair and cervical spine surgery Reported Medications Non- Allergies: Coded Allergies: No Known Allergies (Verified , 03/20/17) Family History Coronary artery disease Social History Does not smoke or drink Physical Exam Vital Signs Vital Signs Date Time Temp Pulse Resp B/P (MAP) Pulse Ox O2 Delivery O2 Flow Rate FiO2 03/21/17 09:17 94 21 03/21/17 08:00 96.5 67 20 117/56 (76) 99 03/21/17 03:09 97.6 69 18 121/56 (77) 100 03/21/17 02:05 76 18 115/65 (82) 98 Room Air 03/21/17 01:55 03/20/17 22:44 75 15 112/57 (75) Room Air 03/20/17 20:10 18 97 Room Air 03/20/17 16:53 97.9 102 20 136/79 (98) 97 Room Air Physical Exam GENERAL: This is a well-nourished, well-developed patient, in no apparent distress. SKIN: No rashes, ecchymoses or lesions. Cool and dry. HEAD: Atraumatic. Normocephalic. No temporal or scalp tenderness. EYES: Pupils equal round and reactive. Extraocular motions intact. No scleral icterus. No injection or drainage. ENT: Nose without bleeding, purulent drainage or septal hematoma. Throat without erythema, tonsillar hypertrophy or exudate. Uvula midline. Airway patent. NECK: Trachea midline. No JVD or lymphadenopathy. Supple, nontender, no meningeal signs. CARDIOVASCULAR: Regular rate and rhythm without murmurs, gallops, or rubs. RESPIRATORY: Clear to auscultation. Breath sounds equal bilaterally. No wheezes , rales, or rhonchi. GASTROINTESTINAL: Abdomen soft, non-tender, nondistended. No guarding. Saxena with hematuria no clots MUSCULOSKELETAL: Extremities without clubbing, cyanosis with bilateral lower extremity pitting edema. No joint tenderness, effusion, or edema noted. No calf tenderness. Negative Homans sign bilaterally. NEUROLOGICAL: Awake and alert. Cranial nerves II through XII intact. Motor and sensory grossly within normal limits. Five out of 5 muscle strength in all muscle groups. Normal speech. Laboratory Laboratory Tests Test 03/20/17 19:40 03/20/17 20:05 03/20/17 21:40 03/21/17 06:25 Urine Color RED Urine Turbidity CLOUDY Urine pH GREATER THAN 9.0 Urine Specific [place] 1.033 Urine Protein 300 OR GREATER Urine Glucose (UA) 250 Urine Ketones 160 OR GREATER Urine Occult Blood LARGE Urine Nitrite POS Urine Bilirubin NEG Urine Urobilinogen GREATER THAN 8.0 Urine Leukocyte Esterase LARGE Urine RBC INNUM Urine WBC 3-5 Urine Squamous Epithelial Cells 0-5 Urine Bacteria OCC Microscopic Urinalysis Comment CULTURE INDICATED White Blood Count 11.0 11.5 Red Blood Count 4.83 4.08 Hemoglobin 13.0 11.1 Hematocrit 40.3 33.9 Mean Corpuscular Volume 83.5 83.0 Mean Corpuscular Hemoglobin 27.0 27.2 Mean Corpuscular Hemoglobin Concent 32.4 32.8 Red Cell Distribution Width 14.8 14.5 Platelet Count 262 212 Mean Platelet Volume 8.2 8.6 Neutrophils (%) (Auto) 78.2 58.4 Lymphocytes (%) (Auto) 17.0 32.1 Monocytes (%) (Auto) 3.9 7.9 Eosinophils (%) (Auto) 0.3 0.9 Basophils (%) (Auto) 0.6 0.7 Neutrophils # (Auto) 8.6 6.8 Lymphocytes # (Auto) 1.9 3.7 Monocytes # (Auto) 0.4 0.9 Eosinophils # (Auto) 0.0 0.1 Basophils # (Auto) 0.1 0.1 CBC Comment AUTO DIFF DIFF FINAL Differential Comment AUTO DIFF CONFIRMED Platelet Estimate NORMAL Platelet Morphology Comment NORMAL Blood Urea Nitrogen 16 16 Creatinine 1.44 1.25 Random Glucose 89 84 Total Protein 8.1 Albumin 3.9 Calcium Level 9.1 8.4 Alkaline Phosphatase 50 Aspartate Amino Transf (AST/SGOT) 38 Alanine Aminotransferase (ALT/SGPT) 32 Total Bilirubin 1.1 Sodium Level 136 138 Potassium Level 5.0 3.6 Chloride Level 102 104 Carbon Dioxide Level 27.1 26.9 Anion Gap 7 7 Estimat Glomerular Filtration Rate 61 72 B-Type Natriuretic Peptide 14 Chlamydia trachomatis DNA (PCR) NOT DETECTED Neisseria gonorrhoeae DNA (PCR) NOT DETECTED Date/Time Source Procedure Growth Status 03/20/17 19:40 Urine Random Urine Urine Culture Pending Received Result Diagram: 03/21/17 0625 03/21/17 0625 Imaging Last Impressions Abdomen/Pelvis CT 03/20/171921 Signed Impressions: Service Date/Time: Monday, March 20, 2017 22:26 - CONCLUSION: 1. Massively enlarged and potentially hemorrhagic prostate. 2. Hemorrhage or mass suspected in the urinary bladder. 3. No other acute abnormalities are seen. Liver is fatty infiltrated and there are benign bilateral renal cysts. Endy Bradford MD Lower Extremity Ultrasound 03/20/17 0000 Signed Impressions: Service Date/Time: Monday, March 20, 2017 20:37 - CONCLUSION: No DVT demonstrated of either lower extremity. Endy Bradford MD Caprini VTE Risk Assessment Caprini VTE Risk Assessment: Mod/High Risk (score >= 2) Caprini Risk Assessment Model Point Value = 1 Point Value = 2 Point Value = 3 Point Value = 5 Age 41-60 Minor surgery BMI > 25 kg/m2 Swollen legs Varicose veins or History of unexplained or recurrent spontaneous Oral contraceptives or hormone replacement Sepsis (< 1 month) Serious lung disease, including pneumonia (< 1 month) Abnormal pulmonary function Acute myocardial infarction Congestive heart failure (< 1 month) History of inflammatory bowel disease Medical patient at bed rest Age 61-74 Arthroscopic surgery Major open surgery (> 45 min) Laparoscopic surgery (> 45 min) Malignancy Confined to bed (> 72 hours) Immobilizing plaster cast Central venous access Age >= 75 History of VTE Family history of VTE Factor V Leiden Prothrombin [id number] Lupus anticoagulant Anticardiolipin antibodies Elevated serum homocysteine Heparin-induced thrombocytopenia Other congenital or acquired thrombophilia Stroke (< 1 month) Elective arthroplasty Hip, pelvis, or leg fracture Acute spinal cord injury (< 1 month) Prophylaxis Regimen Total Risk Factor Score Risk Level Prophylaxis Regimen 0-1 Low Early ambulation 2 Moderate Order ONE of the following: *Sequential Compression Device (SCD) *Heparin 5000 units SQ BID 3-4 Higher Order ONE of the following medications: *Heparin 5000 units SQ TID *Enoxaparin/Lovenox 40 mg SQ daily (WT < 150 kg, CrCl > 30 mL/min) *Enoxaparin/Lovenox 30 mg SQ daily (WT < 150 kg, CrCl > 10-29 mL/min) *Enoxaparin/Lovenox 30 mg SQ BID (WT < 150 kg, CrCl > 30 mL/min) AND/OR *Sequential Compression Device (SCD) 5 or more Highest Order ONE of the following medications: *Heparin 5000 units SQ TID (Preferred with Epidurals) *Enoxaparin/Lovenox 40 mg SQ daily (WT < 150 kg, CrCl > 30 mL/min) *Enoxaparin/Lovenox 30 mg SQ daily (WT < 150 kg, CrCl > 10-29 mL/min) *Enoxaparin/Lovenox 30 mg SQ BID (WT < 150 kg, CrCl > 30 mL/min) AND *Sequential Compression Device (SCD) Assessment and Plan Problem List: (1) Gross hematuria ICD Code: R31.0 - Gross hematuria Status: Acute (2) Urinary retention ICD Code: R33.9 - Retention of urine, unspecified Status: Acute Assessment and Plan This is a 56-year-old male with a history of hypertension, mental retardation and enlarged prostate. Patient was seen in the emergency department over 2 weeks ago for hematuria and was diagnosed with UTI and prescribed ciprofloxacin and Flomax. Patient reports of persistent hematuria with onset of constant severe sharp lower elbow pain worse when he urinates for the past 2 days associated with dysuria and constipation. Ultrasound shows massively enlarged and possibly hemorrhagic prostate and hemorrhage or mass in the urinary bladder. Gross hematuria with urinary retention and history of enlarged prostate. Discussed with , patient will be taken to or for cystoscopy this afternoon. Keep patient nothing by mouth. Continue Saxena catheter with bladder irrigation. Pain management with Lortab and IV morphine. Obtain coags. EKG with sinus rhythm and LVH no significant change from previous Mild AST elevation with fatty infiltration on sonogram. Monitor Bilateral lower extremity swelling with negative DVT on studies Constipation. Start bowel regimen DVT prophylaxis with SCD and early ambulation. Pharmacological prophylaxis contacted at this time secondary to bleeding Discussed Condition With Patient, RN and Martin Dunbar MD Mar 21, 2017 10:55
[2017-03-21] MEDS ORDERED: ceFAZolin INJ 1,000 MG VIAL IV ONE (12:00)
[2017-03-21] MEDS ORDERED: GLYCOPYRROLATE 1 MG/5 ML SYRINGE IV PUSH ONE (12:00)
[2017-03-21] MEDS ORDERED: SODIUM CHLORIDE 0.9% 20 ML VIAL IV ONE (12:00)
[2017-03-21] MEDS ORDERED: DEXAMETHASONE SOD PHOS 4 MG/ML VIAL IV ONE (12:00)
[2017-03-21] MEDS ORDERED: ePHEDrine/NS 25 MG/5 ML SYR IV ONE (12:00)
[2017-03-21] MEDS ORDERED: ONDANSETRON HCL 4 MG/2 ML VIAL IV PUSH ONE (12:00)
[2017-03-21] MEDS ORDERED: ROCURONIUM INJ 50 MG/5 ML SYRINGE IV PUSH ONE (12:00)
[2017-03-21] MEDS ORDERED: PHENYLEPH/NS 1000 MCG/10 ML SYR IV ONE (12:00)
[2017-03-21] MEDS ORDERED: NEOSTIGMINE 3 MG/3 ML SYR IV ONE (12:00)
[2017-03-21] MEDS ORDERED: PROPOFOL 200 MG/20 ML AMP IV ONE (12:00)
[2017-03-21] MEDS ORDERED: LIDOCAINE HCL 1% PF 5 ML AMPULE OTHER ONE (12:00)
--- NOTE | 2017-03-21 12:12 | PD.OP ---
Operative Report Date of Surgery: Mar 21, 2017 Preoperative Diagnosis: Clot retention with gross hematuria Postoperative Diagnosis: Same Procedure: Cystoscopy with clot evacuation and fulguration of enlarged prostate gland Anesthesia: DOREEN Surgeon: Juan Patel Manager Business(s): None Resident Surgeon: None Operation and Findings: 56-year-old black male with 6 weeks of ongoing gross hematuria. Patient presented to the area emergency room yesterday with clot retention and inability to urinate. Decision made to bring the patient to the operating room to undergo cystoscopy with clot evacuation and fulguration of any bleeding. Risk and benefits were discussed with the patient and his sister and he was willing to proceed. Patient was brought to the operating room and identified myself as Endy Mcintosh. He was placed in the dorsal lithotomy position, prepped and draped in usual sterile fashion, received preprocedure antibiotics, general endotracheal tube anesthesia was administered. Using the 24 sheath with the flexible obturator and placed the sheath was inserted into the bladder. The elic evacuator was then used to remove a large majority of clots. Once the bladder was clear, bleeding was identified from the enlarged prostate gland which was protruding into the bladder. I did not visualize ureteral orifices. Using the button for fulguration the areas of bleeding were cauterized. Once bleeding had subsided, decision was made then to pass a [address] way 22 [place] hematuria catheter into the bladder over a wire. This was done without difficulty and he was started on CBI. Saxena was placed on traction and taped to his leg. He was awoken and transferred to her room in stable condition. We will maintain Saxena catheter during this admission and perform a void trial on an outpatient basis. Juan Patel DO Mar 21, 2017 12:12
[2017-03-21] MEDS ORDERED: DO NOT ADM ANY ANTICOAGULANT DRUGS PRN (12:15)
[2017-03-21] MEDS ORDERED: ceFAZolin 2 GM PREMIX 50 ML IV ONE (12:23)
[2017-03-21] MEDS: NS + KCL 20 MEQ INJ 1,000 ML IV SCH (12:40)
[2017-03-21] MEDS ORDERED: *morphine SULFATE 8 MG/ML PERIprocedure ONLY ONE (12:44)
[2017-03-21] MEDS: ACETAMINOPHEN/HYDROcodone 325 MG/10 MG TAB PO PRN (14:25)
[2017-03-21] MEDS ORDERED: BELLADONNA ALKALOIDS/OPIUM 60 MG SUPP RECTAL PRN (15:00)
[2017-03-21 15:57] LABS: APTT (PATIENT) 26.2 SEC (24.3-30.1); PROTHROMBIN TIME - PATIENT 11.4 SEC (9.8-11.6)
[2017-03-21] MEDS: ceFAZolin 2 GM PREMIX 50 ML IV SCH (18:05)
[2017-03-22] VITALS (8 sets, daily range): BP systolic 111–175; BP diastolic 58–79; PULSE 70–99; RESP 18–20; TEMP 97.1–100.2; O2SAT 96–99
[2017-03-22] MEDS: NS + KCL 20 MEQ INJ 1,000 ML IV SCH (02:06)
[2017-03-22] MEDS: ceFAZolin 2 GM PREMIX 50 ML IV SCH ×2 (02:06→09:25)
[2017-03-22] MEDS ORDERED: HYDR-3583 PO (08:08)
[2017-03-22] MEDS ORDERED: SENN1TAB PO (08:08)
--- NOTE | 2017-03-22 08:08 | HHI.DCPOC ---
Discharge Care Plan Diagnosis: (1) BPH (benign prostatic hyperplasia) (2) Gross hematuria Your Health Problems Are: Difficulty with ADL Exercise Tolerance Goals to Promote Your Health * To prevent worsening of your condition and complications * To maintain your health at the optimal level Directions to Meet Your Goals Take your medications as prescribed Follow your dietary instruction Follow activity as directed Keep your appointments as scheduled Take your immunizations and boosters as scheduled If your symptoms worsen call your PCP, if no PCP go to Urgent Care Center or Emergency Room Smoking is Dangerous to Your Health. Avoid second hand smoke Call the 24-hour hour crisis hotline for domestic abuse at Martin Dunbar MD Mar 22, 2017 08:08
--- NOTE | 2017-03-22 08:09 | HHI.FF ---
Face to Face Verification Diagnosis: (1) BPH (benign prostatic hyperplasia) (2) Gross hematuria Home Health Nursing Order: Medical education Signs/symptoms of disease process Medication education-adverse effect Nursing assessment with vital signs Saxena catheter maintenance I have seen patient Endy Mcintosh on 03/22/17. My clinical findings support the need for the requested home health care services because: Med compliance is questionable I certify that my clinical findings support that this patient is homebound because: Need for psychosocial assistance Martin Dunbar MD Mar 22, 2017 08:09
[2017-03-22] MEDS: DOCUSATE SODIUM 50 MG/SENNA 8.6 MG TAB PO SCH ×2 (09:20→21:50)
--- NOTE | 2017-03-22 09:35 | HHI.PR ---
Subjective Patient symptoms today Pt seen and examined. Feels well. Urine clear. Objective Vital Signs Vital Signs Date Time Temp Pulse Resp B/P (MAP) Pulse Ox O2 Delivery O2 Flow Rate FiO2 03/22/17 08:24 98 21 03/22/17 04:00 97.8 75 20 111/58 (75) 96 03/22/17 00:00 97.5 80 20 114/62 (79) 98 03/21/17 21:00 73 03/21/17 20:28 21 03/21/17 20:00 97.1 75 20 119/59 (79) 97 03/21/17 16:15 59 03/21/17 16:00 97.8 80 20 100/56 (71) 99 03/21/17 12:50 86 14 119/57 (77) 96 Room Air 03/21/17 12:30 66 14 133/66 (88) 99 Room Air 03/21/17 12:13 97.8 72 14 114/55 (74) 96 Nasal Cannula 4 Intake & Output 03/22/17 03/22/17 06:59 18:59 Intake Total 600 ml Output Total 3100 ml Balance -2500 ml Intake Oral 600 ml Output Urine Total 3100 ml Result Diagram: 03/21/1762403/21/17624 Objective Remarks Abd:soft,nt,nd Saxena: clear urine; CBI clamped to off. Medications and IVs Current Medications Medications (Trade) Dose Ordered Sig/Briseyda Route Start Time Stop Time Status Last Admin (NS Flush) 2 ml UNSCH PRN IV FLUSH 03/21/17 01:15 (NS Flush) 2 ml BID IV FLUSH 03/21/17 09:00 (Pneumovax-23 Inj) 25 mcg ONCE ONCE IM 03/22/17 10:00 03/22/17 10:01 03/22/17 09:19 (Flu (Quadrivalent) Vaccine Inj) 0.5 ml ONCE ONCE IM 03/22/17 10:00 03/22/17 10:01 03/22/17 09:20 Potassium Chloride/Sodium Chloride 1,000 ml @ 100 mls/hr Q10H IV 03/21/17 09:00 03/22/17 02:06 (Tylenol) 650 mg Q4H PRN PO 03/21/17 08:45 (Zofran Inj) 4 mg Q6H PRN IVP 03/21/17 08:45 (Tylenol) 650 mg Q6H PRN PO 03/21/17 08:45 ([place] 5-325 Mg) 1 tab Q4H PRN PO 03/21/17 08:45 ([place] 10-325 Mg) 1 tab Q4H PRN PO 03/21/17 08:45 03/21/17 14:25 (Morphine Inj) 1 mg Q3H PRN IV PUSH 03/21/17 08:45 (Lucía-Colace) 1 tab BID PO 03/21/17 09:00 03/22/17 09:20 (Milk Of Magnesia Liq) 30 ml Q12H PRN PO 03/21/17 08:45 (Senokot) 17.2 mg Q12H PRN PO 03/21/17 08:45 (Dulcolax Supp) 10 mg DAILY PRN RECTAL 03/21/17 08:45 (Lactulose Liq) 30 ml DAILY PRN PO 03/21/17 08:45 Aminocaproic Acid 3000 mg/Sodium Chloride 3,012 ml @ 0 mls/hr UNSCH IRRIGATION 03/21/17 15:00 Cefazolin Sodium/ Dextrose 50 ml @ 100 mls/hr Q8H IV 03/21/17 19:00 03/22/17 11:29 03/22/17 09:25 (B & O Supp) 60 mg Q6HR PRN RECTAL 03/21/17 15:00 Miscellaneous Information ALL NURSING DEPARTME... UNSCH PRN .XX 03/21/17 12:15 03/22/17 12:14 Assessment and Plan Assessment and Plan Stable s/p cysto with clot evacuation with fulguration. Bleeding secondary to enlarged prostate. Stable for discharge today. Saxena to leg bag. F/U next week for possible void trial. Juan Patel DO Mar 22, 2017 09:35
[2017-03-22] MEDS ORDERED: INFLUENZA VIRUS VACCINE (QUADRIVALENT) 0.5 ML SYR IM ONE (10:00)
[2017-03-22] MEDS ORDERED: PNEUMOCOCCAL POLYVALENT INJ 25 MCG/0.5 ML SYR IM ONE (10:00)
[2017-03-22 10:11] LABS: AUTOMATED NEUTROPHIL # 6.7 TH/MM3 (1.8-7.7); BASOPHIL # 0.1 TH/MM3 (0-0.2); BASOPHIL % 0.5 % (0.0-2.0); EOSINOPHIL # 0.2 TH/MM3 (0-0.4); EOSINOPHIL % 1.6 % (0.0-4.0); HEMATOCRIT 28.4 % (39.0-51.0); HEMO FLAGS DIFF FINAL; LYMPH % 27.7 % (9.0-44.0); LYMPHOCYTE # 3.1 TH/MM3 (1.0-4.8); MEAN CELL VOLUME 83.6 FL (80.0-100.0); MEAN CORPUSCULAR HEMOGLOBIN 27.6 PG (27.0-34.0); MONO % 9.9 % (0.0-8.0); NEUT % 60.3 % (16.0-70.0); PLATELET COUNT 161 TH/MM3 (150-450); RED BLOOD COUNT 3.39 MIL/MM3 (4.50-5.90); RED CELL DISTRIBUTION WIDTH 14.3 % (11.6-17.2); WHITE BLOOD COUNT 11.1 TH/MM3 (4.0-11.0)
[2017-03-22 10:36] LABS: BICARBONATE 28.8 MEQ/L (21.0-32.0); MAGNESIUM 2.3 MG/DL (1.5-2.5); POTASSIUM 3.9 MEQ/L (3.5-5.1)
--- NOTE | 2017-03-22 13:02 | HHI.PR ---
Subjective Remarks Follow-up gross hematuria. Patient has no complaints. CBI currently on hold patient with pinkish pains urine with occasional minimal blood clots resolved with flushing. Discussed with RN Objective Vitals Vital Signs Date Time Temp Pulse Resp B/P (MAP) Pulse Ox O2 Delivery O2 Flow Rate FiO2 03/22/17 12:41 97.6 79 18 124/60 (81) 99 03/22/17 08:24 98 21 03/22/17 08:00 97.1 71 18 136/62 (86) 97 03/22/17 04:00 97.8 75 20 111/58 (75) 96 03/22/17 00:00 97.5 80 20 114/62 (79) 98 03/21/17 21:00 73 03/21/17 20:28 21 03/21/17 20:00 97.1 75 20 119/59 (79) 97 03/21/17 16:15 59 03/21/17 16:00 97.8 80 20 100/56 (71) 99 I/O 03/21/17 03/21/17 03/21/17 03/22/17 03/22/17 03/22/17 07:00 15:00 23:00 07:00 15:00 23:00 Intake Total 700 ml 2220 ml 220 ml 50 ml Output Total 100 ml 8050 ml 1150 ml Balance 600 ml -5830 ml -930 ml 50 ml Intake Oral 620 ml 220 ml IV Total 1600 ml 50 ml Other 700 ml Output Urine Total 8050 ml 1150 ml Estimated Blood Loss 100 ml Result Diagram: 03/22/17 0850 03/22/17 0850 Objective Remarks GENERAL: Well-developed, well-nourished in no distress SKIN: Warm and dry. HEAD: Atraumatic. Normocephalic. EYES: Pupils equal and round. No scleral icterus. No injection or drainage. ENT: No nasal bleeding or discharge. Mucous membranes pink and moist. NECK: Trachea midline. No JVD. CARDIOVASCULAR: Regular rate and rhythm. RESPIRATORY: No accessory muscle use. Clear to auscultation. Breath sounds equal bilaterally. GASTROINTESTINAL: Abdomen soft, non-tender, with Saxena catheter in place draining pinkish tinged urine Extremities no cyanosis but with bilateral lower extremity pitting edema NEUROLOGICAL: Awake and alert. No obvious cranial nerve deficits. Motor grossly within normal limits. Five out of 5 muscle strength in the arms and legs. Normal speech. Procedures Cystoscopy with clot evacuation and fulguration of enlarged prostate gland A/P Problem List: (1) Gross hematuria ICD Code: R31.0 - Gross hematuria Status: Acute (2) Urinary retention ICD Code: R33.9 - Retention of urine, unspecified Status: Acute Assessment and Plan This is a 56-year-old male with a history of hypertension, mental retardation and enlarged prostate. Patient was seen in the emergency department over 2 weeks ago for hematuria and was diagnosed with UTI and prescribed ciprofloxacin and Flomax. Patient reports of persistent hematuria with onset of constant severe sharp lower elbow pain worse when he urinates for the past 2 days associated with dysuria and constipation. Ultrasound shows massively enlarged and possibly hemorrhagic prostate and hemorrhage or mass in the urinary bladder. Gross hematuria with urinary retention and history of enlarged prostate. Cystoscopy with clot evacuation and fulguration of enlarged prostate gland. Improving will monitor off CBI Pain management with Lortab and IV morphine. Acute anemia secondary to blood loss. Hemodynamically stable. Monitor repeat CBC in the morning Acute kidney injury. Nonoliguric. Continue IV hydration. Avoid nephrotoxins. Repeat BMP and mag in the morning Mild AST elevation with fatty infiltration on sonogram. Monitor Bilateral lower extremity swelling with negative DVT on studies Constipation. Continue bowel regimen DVT prophylaxis with SCD and early ambulation. Pharmacological prophylaxis contraindicated at this time secondary to bleeding Discharge Planning Not stable for discharge Martin Dunbar MD Mar 22, 2017 13:02
[2017-03-22] MEDS: SODIUM CHLORIDE 0.9% FLUSH 10 ML FLUSH IV FLUSH SCH (21:00)
[2017-03-22] MEDS: ACETAMINOPHEN/HYDROcodone 325 MG/10 MG TAB PO PRN (21:50)
[2017-03-23] VITALS (9 sets, daily range): BP systolic 121–139; BP diastolic 57–79; PULSE 75–99; RESP 18–20; TEMP 97.1–98.8; O2SAT 97–99
[2017-03-23] MEDS: NS + KCL 20 MEQ INJ 1,000 ML IV SCH (03:09)
[2017-03-23] MEDS: ACETAMINOPHEN/HYDROcodone 325 MG/10 MG TAB PO PRN ×2 (06:12→22:21)
[2017-03-23 07:51] LABS: AUTOMATED NEUTROPHIL # 11.6 TH/MM3 (1.8-7.7); BASOPHIL # 0.1 TH/MM3 (0-0.2); BASOPHIL % 0.6 % (0.0-2.0); EOSINOPHIL # 0.2 TH/MM3 (0-0.4); EOSINOPHIL % 1.6 % (0.0-4.0); HEMO FLAGS DIFF FINAL; LYMPH % 12.6 % (9.0-44.0); MEAN CELL VOLUME 83.1 FL (80.0-100.0); MEAN CORPUSCULAR HEMOGLOBIN 26.9 PG (27.0-34.0); MEAN CORPUSCULAR HGB CONC 32.3 % (32.0-36.0); NEUT % 74.2 % (16.0-70.0); PLATELET COUNT 170 TH/MM3 (150-450); RED BLOOD COUNT 3.86 MIL/MM3 (4.50-5.90); RED CELL DISTRIBUTION WIDTH 14.6 % (11.6-17.2); WHITE BLOOD COUNT 15.6 TH/MM3 (4.0-11.0)
[2017-03-23 08:15] LABS: BICARBONATE 26.4 MEQ/L (21.0-32.0); MAGNESIUM 2.2 MG/DL (1.5-2.5); POTASSIUM 4.2 MEQ/L (3.5-5.1)
[2017-03-23] MEDS: DOCUSATE SODIUM 50 MG/SENNA 8.6 MG TAB PO SCH ×2 (08:41→22:18)
[2017-03-23] MEDS: SODIUM CHLORIDE 0.9% FLUSH 10 ML FLUSH IV FLUSH SCH ×2 (08:41→22:19)
--- NOTE | 2017-03-23 10:33 | HHI.PR ---
Subjective Remarks Follow-up hematuria. CBI restarted because of blood clots. Patient denies any complaints. Discussed with RN Objective Vitals Vital Signs Date Time Temp Pulse Resp B/P (MAP) Pulse Ox O2 Delivery O2 Flow Rate FiO2 03/23/17 08:00 97.1 75 20 133/61 (85) 98 03/23/17 07:12 16 03/23/17 04:00 97.1 93 19 99 03/23/17 03:15 121/57 (78) 03/23/17 00:00 98.8 88 18 124/69 (87) 97 03/22/17 21:15 70 03/22/17 20:00 99.2 99 19 175/79 (111) 98 03/22/17 16:00 100.2 90 18 115/58 (77) 96 03/22/17 12:41 97.6 79 18 124/60 (81) 99 I/O 03/22/17 03/22/17 03/22/17 03/23/17 03/23/17 03/23/17 07:00 15:00 23:00 07:00 15:00 23:00 Intake Total 220 ml 50 ml 1200 ml 1792 ml Output Total 1150 ml 6500 ml 5650 ml 300 ml Balance -930 ml 50 ml -5300 ml -3858 ml -300 ml Intake Oral 220 ml 1200 ml 480 ml IV Total 50 ml 1312 ml Output Urine Total 1150 ml 6500 ml 5650 ml 300 ml Result Diagram: 03/23/17 0632 03/23/17 0632 Objective Remarks GENERAL: Well-developed, well-nourished in no distress SKIN: Warm and dry. HEAD: Atraumatic. Normocephalic. EYES: Pupils equal and round. No scleral icterus. No injection or drainage. ENT: No nasal bleeding or discharge. Mucous membranes pink and moist. NECK: Trachea midline. No JVD. CARDIOVASCULAR: Regular rate and rhythm. RESPIRATORY: No accessory muscle use. Clear to auscultation. Breath sounds equal bilaterally. GASTROINTESTINAL: Abdomen soft, non-tender, with Saxena catheter in place draining red tinged urine Extremities no cyanosis but with bilateral lower extremity pitting edema NEUROLOGICAL: Awake and alert. No obvious cranial nerve deficits. Motor grossly within normal limits. Five out of 5 muscle strength in the arms and legs. Normal speech. Procedures Cystoscopy with clot evacuation and fulguration of enlarged prostate gland A/P Problem List: (1) Gross hematuria ICD Code: R31.0 - Gross hematuria Status: Acute (2) Urinary retention ICD Code: R33.9 - Retention of urine, unspecified Status: Acute Assessment and Plan This is a 56-year-old male with a history of hypertension, mental retardation and enlarged prostate. Patient was seen in the emergency department over 2 weeks ago for hematuria and was diagnosed with UTI and prescribed ciprofloxacin and Flomax. Patient reports of persistent hematuria with onset of constant severe sharp lower elbow pain worse when he urinates for the past 2 days associated with dysuria and constipation. Ultrasound shows massively enlarged and possibly hemorrhagic prostate and hemorrhage or mass in the urinary bladder. Gross hematuria with urinary retention and history of enlarged prostate. Cystoscopy with clot evacuation and fulguration of enlarged prostate gland. Still with hematuria. Continue as needed CBI. Pain management with Lortab and IV morphine. We will alert Acute anemia secondary to blood loss. Hemodynamically stable. Improved Acute kidney injury. Nonoliguric. Improved. Discontinue IV hydration. Avoid nephrotoxins. Repeat BMP and mag in the morning Mild AST elevation with fatty infiltration on sonogram. Monitor Bilateral lower extremity swelling with negative DVT on studies Constipation. Continue bowel regimen Leukocytosis likely reactive. Repeat CBC in the morning. Continue to monitor DVT prophylaxis with SCD and early ambulation. Pharmacological prophylaxis contraindicated at this time secondary to bleeding Discharge Planning Not stable for discharge Martin Dunbar MD Mar 23, 2017 10:33
[2017-03-23] MEDS: LACTULOSE SYRUP 20 GM/30 ML CUP PO PRN (22:18)
[2017-03-23] MEDS: AMINOCAPROIC ACID INJ 3,000 MG in SODIUM CHLORIDE 0.9% IRR BAG 3,000 ML IRRIGATION SCH (23:10)
[2017-03-24] VITALS (10 sets, daily range): BP systolic 110–156; BP diastolic 58–70; PULSE 74–105; RESP 18–20; TEMP 96.7–97.8; O2SAT 97–99
[2017-03-24] MEDS: DOCUSATE SODIUM 50 MG/SENNA 8.6 MG TAB PO SCH ×2 (09:19→20:33)
[2017-03-24 09:53] LABS: AUTOMATED NEUTROPHIL # 10.3 TH/MM3 (1.8-7.7); BASOPHIL # 0.1 TH/MM3 (0-0.2); BASOPHIL % 0.7 % (0.0-2.0); EOSINOPHIL # 0.3 TH/MM3 (0-0.4); EOSINOPHIL % 1.8 % (0.0-4.0); HEMATOCRIT 29.3 % (39.0-51.0); HEMO FLAGS DIFF FINAL; LYMPH % 14.2 % (9.0-44.0); MEAN CELL VOLUME 83.8 FL (80.0-100.0); MEAN CORPUSCULAR HEMOGLOBIN 27.2 PG (27.0-34.0); MEAN CORPUSCULAR HGB CONC 32.5 % (32.0-36.0); MONO % 10.6 % (0.0-8.0); NEUT % 72.7 % (16.0-70.0); PLATELET COUNT 177 TH/MM3 (150-450); RED CELL DISTRIBUTION WIDTH 14.3 % (11.6-17.2); WHITE BLOOD COUNT 14.2 TH/MM3 (4.0-11.0)
[2017-03-24 10:20] LABS: BICARBONATE 25.6 MEQ/L (21.0-32.0); MAGNESIUM 2.2 MG/DL (1.5-2.5); POTASSIUM 4.1 MEQ/L (3.5-5.1)
--- NOTE | 2017-03-24 10:27 | HHI.PR ---
Subjective Remarks Follow-up gross hematuria status post cystoscopy. Continues to have hematuria on CBI. has held discharge. Patient has no complaints. Discussed with RN Objective Vitals Vital Signs Date Time Temp Pulse Resp B/P (MAP) Pulse Ox O2 Delivery O2 Flow Rate FiO2 03/24/17 07:50 97.2 82 20 121/61 (81) 98 03/24/17 04:00 96.7 78 18 110/62 (78) 99 03/24/17 00:00 97.1 90 18 138/69 (92) 99 03/23/17 23:40 20 03/23/17 21:00 87 03/23/17 20:00 98.0 96 19 139/66 (90) 99 03/23/17 16:39 98.4 99 20 128/60 (82) 98 03/23/17 16:00 78 03/23/17 12:00 93 03/23/17 12:00 97.8 97 20 127/79 (95) 97 I/O 03/23/17 03/23/17 03/23/17 03/24/17 03/24/17 03/24/17 07:00 15:00 23:00 07:00 15:00 23:00 Intake Total 1792 ml 1440 ml 480 ml Output Total 5650 ml 300 ml 3425 ml 4700 ml Balance -3858 ml -300 ml -1985 ml -4220 ml Intake Oral 480 ml 1440 ml 480 ml IV Total 1312 ml Output Urine Total 5650 ml 300 ml 3425 ml 4700 ml Result Diagram: 03/24/17 0839 03/24/17 0839 Imaging Last Impressions Abdomen/Pelvis CT 03/20/17 192 Signed Impressions: Service Date/Time: Monday, March 20, 2017 22:26 - CONCLUSION: 1. Massively enlarged and potentially hemorrhagic prostate. 2. Hemorrhage or mass suspected in the urinary bladder. 3. No other acute abnormalities are seen. Liver is fatty infiltrated and there are benign bilateral renal cysts. Endy Bradford MD Lower Extremity Ultrasound 03/20/17 0000 Signed Impressions: Service Date/Time: Monday, March 20, 2017 20:37 - CONCLUSION: No DVT demonstrated of either lower extremity. Endy Bradford MD Objective Remarks GENERAL: Well-developed, well-nourished in no distress SKIN: Warm and dry. HEAD: Atraumatic. Normocephalic. EYES: Pupils equal and round. No scleral icterus. No injection or drainage. ENT: No nasal bleeding or discharge. Mucous membranes pink and moist. NECK: Trachea midline. No JVD. CARDIOVASCULAR: Regular rate and rhythm. RESPIRATORY: No accessory muscle use. Clear to auscultation. Breath sounds equal bilaterally. GASTROINTESTINAL: Abdomen soft, non-tender, with Saxena catheter in place draining red tinged urine Extremities no cyanosis but with bilateral lower extremity pitting edema NEUROLOGICAL: Awake and alert. No obvious cranial nerve deficits. Motor grossly within normal limits. Five out of 5 muscle strength in the arms and legs. Normal speech. Procedures Cystoscopy with clot evacuation and fulguration of enlarged prostate gland A/P Problem List: (1) Gross hematuria ICD Code: R31.0 - Gross hematuria Status: Acute (2) Urinary retention ICD Code: R33.9 - Retention of urine, unspecified Status: Acute Assessment and Plan This is a 56-year-old male with a history of hypertension, mental retardation and enlarged prostate. Patient was seen in the emergency department over 2 weeks ago for hematuria and was diagnosed with UTI and prescribed ciprofloxacin and Flomax. Patient reports of persistent hematuria with onset of constant severe sharp lower elbow pain worse when he urinates for the past 2 days associated with dysuria and constipation. Ultrasound shows massively enlarged and possibly hemorrhagic prostate and hemorrhage or mass in the urinary bladder. Gross hematuria with urinary retention and history of enlarged prostate. Status post Cystoscopy with clot evacuation and fulguration of enlarged prostate gland. Still with hematuria. Continue CBI. Pain management with Lortab and IV morphine. ff Acute anemia secondary to blood loss. Hemodynamically stable. Improved Acute kidney injury. Nonoliguric. Improved. Discontinue IV hydration. Avoid nephrotoxins. Mild AST elevation with fatty infiltration on sonogram. Monitor Bilateral lower extremity swelling with negative DVT on studies Constipation. Continue bowel regimen Leukocytosis likely reactive. Improving. Continue to monitor DVT prophylaxis with SCD and early ambulation. Pharmacological prophylaxis contraindicated at this time secondary to bleeding Discharge Planning Discharge when cleared by Martin Palm MD Mar 24, 2017 10:27
[2017-03-24] MEDS: SODIUM CHLORIDE 0.9% FLUSH 10 ML FLUSH IV FLUSH SCH ×2 (13:12→20:36)
[2017-03-24] MEDS: ACETAMINOPHEN/HYDROcodone 325 MG/10 MG TAB PO PRN ×2 (13:12→18:31)
[2017-03-24] MEDS: AMINOCAPROIC ACID INJ 3,000 MG in SODIUM CHLORIDE 0.9% IRR BAG 3,000 ML IRRIGATION SCH ×2 (17:28→20:32)
[2017-03-25] VITALS (11 sets, daily range): BP systolic 109–156; BP diastolic 55–87; PULSE 81–106; RESP 18–21; TEMP 97.3–99.1; O2SAT 95–98
[2017-03-25] MEDS: AMINOCAPROIC ACID INJ 3,000 MG in SODIUM CHLORIDE 0.9% IRR BAG 3,000 ML IRRIGATION SCH ×6 (01:07→20:34)
[2017-03-25] MEDS: ACETAMINOPHEN/HYDROcodone 325 MG/10 MG TAB PO PRN ×3 (05:46→20:39)
[2017-03-25] MEDS: SODIUM CHLORIDE 0.9% FLUSH 10 ML FLUSH IV FLUSH SCH ×2 (08:09→20:34)
[2017-03-25] MEDS: DOCUSATE SODIUM 50 MG/SENNA 8.6 MG TAB PO SCH ×2 (08:09→20:34)
--- NOTE | 2017-03-25 09:04 | HHI.PR ---
Subjective Remarks Patient in bed. Had clots last night and bryan was changes as was clogged with clots. Now with clear urine. Has mild intermittent abdominal pain. No diarrhea or constipation last BM was yesterday. Feels tired. No chest pain or sob. No chest pain or sob. Objective Vitals Vital Signs Date Time Temp Pulse Resp B/P (MAP) Pulse Ox O2 Delivery O2 Flow Rate FiO2 03/25/17 04:07 92 03/25/17 04:00 97.7 85 19 121/57 (78) 97 03/25/17 00:09 99 03/25/17 00:00 97.3 81 20 109/55 (73) 98 03/24/17 20:02 99 03/24/17 20:00 97.8 105 19 156/70 (98) 98 03/24/17 15:55 97 03/24/17 15:50 97.1 102 20 116/58 (77) 97 03/24/17 12:08 79 03/24/17 11:30 96.7 92 20 125/58 (80) 98 I/O 03/24/17 03/24/17 03/24/17 03/25/17 03/25/17 03/25/17 06:59 14:59 22:59 06:59 14:59 22:59 Intake Total 480 ml 682 ml 480 ml Output Total 4700 ml 7500 ml 5650 ml Balance -4220 ml -6818 ml -5170 ml Intake Oral 480 ml 682 ml 480 ml Output Urine Total 4700 ml 7500 ml 5650 ml # Bowel Movements 2 Result Diagram: 03/24/17 0839 03/24/17 0839 Imaging Last Impressions Abdomen/Pelvis CT 03/20/17 1922 Signed Impressions: Service Date/Time: Monday, March 20, 2017 22:26 - CONCLUSION: 1. Massively enlarged and potentially hemorrhagic prostate. 2. Hemorrhage or mass suspected in the urinary bladder. 3. No other acute abnormalities are seen. Liver is fatty infiltrated and there are benign bilateral renal cysts. Endy Bradford MD Lower Extremity Ultrasound 03/20/17 0000 Signed Impressions: Service Date/Time: Monday, March 20, 2017 20:37 - CONCLUSION: No DVT demonstrated of either lower extremity. Endy Bradford MD Objective Remarks GENERAL: Well-developed, well-nourished in no distress CARDIOVASCULAR: Regular rate and rhythm. RESPIRATORY: No accessory muscle use. Clear to auscultation. Breath sounds equal bilaterally. GASTROINTESTINAL: Abdomen soft, non-tender, with Bryan catheter in place draining red tinged urine Extremities no cyanosis but with bilateral lower extremity pitting edema NEUROLOGICAL: Awake and alert. No obvious cranial nerve deficits. Motor grossly within normal limits. Five out of 5 muscle strength in the arms and legs. Normal speech. Procedures Cystoscopy with clot evacuation and fulguration of enlarged prostate gland A/P Problem List: (1) Gross hematuria ICD Code: R31.0 - Gross hematuria Status: Acute (2) Urinary retention ICD Code: R33.9 - Retention of urine, unspecified Status: Acute Assessment and Plan (1) Gross hematuria ICD Code: R31.0 - Gross hematuria Status: Acute (2) Urinary retention ICD Code: R33.9 - Retention of urine, unspecified Status: Acute Assessment and Plan This is a 56-year-old male with a history of hypertension, mental retardation and enlarged prostate. Patient was seen in the emergency department over 2 weeks ago for hematuria and was diagnosed with UTI and prescribed ciprofloxacin and Flomax. Patient reports of persistent hematuria with onset of constant severe sharp lower elbow pain worse when he urinates for the past 2 days associated with dysuria and constipation. Ultrasound shows massively enlarged and possibly hemorrhagic prostate and hemorrhage or mass in the urinary bladder. Gross hematuria with urinary retention and history of enlarged prostate. Status post Cystoscopy with clot evacuation and fulguration of enlarged prostate gland. Still with hematuria. Continue CBI. Pain management with Lortab and IV morphine. ff Dr Patel Acute anemia secondary to blood loss. Hemodynamically stable. Improved Acute kidney injury. Nonoliguric. Improved. Discontinue IV hydration. Avoid nephrotoxins. Mild AST elevation with fatty infiltration on sonogram. Monitor Bilateral lower extremity swelling with negative DVT on studies Constipation. Continue bowel regimen Leukocytosis likely reactive. Improving. Continue to monitor DVT prophylaxis with SCD and early ambulation. Pharmacological prophylaxis contraindicated at this time secondary to bleeding Discharge Planning Discharge when cleared by Heather Castrejon MD Mar 25, 2017 09:03
[2017-03-26] VITALS (8 sets, daily range): BP systolic 113–150; BP diastolic 55–96; PULSE 71–98; RESP 17–18; TEMP 97–98.8; O2SAT 92–98
[2017-03-26] MEDS: AMINOCAPROIC ACID INJ 3,000 MG in SODIUM CHLORIDE 0.9% IRR BAG 3,000 ML IRRIGATION SCH (04:48)
--- NOTE | 2017-03-26 07:20 | HHI.PR ---
Subjective Remarks In bed, says he still has clots and bloody urine. Urine is pink in color at this time. Has no pain. Says he is not sob , no chest pain. No n/v/d/c. Objective Vitals Vital Signs Date Time Temp Pulse Resp B/P (MAP) Pulse Ox O2 Delivery O2 Flow Rate FiO2 03/26/17 04:27 71 03/26/17 04:00 98.3 77 18 115/56 (75) 97 03/26/17 01:08 79 03/26/17 00:00 98.1 80 18 150/56 (87) 95 03/25/17 20:05 89 03/25/17 20:00 99.1 94 18 131/60 (83) 96 03/25/17 16:00 97.7 86 19 122/57 (78) 98 03/25/17 12:00 97.7 106 20 135/70 (91) 95 03/25/17 11:58 102 03/25/17 08:55 99 03/25/17 08:00 97.7 93 21 156/87 (110) 96 I/O 03/25/17 03/25/17 03/25/17 03/26/17 03/26/17 03/26/17 07:00 15:00 23:00 07:00 15:00 23:00 Intake Total 480 ml 6024 ml 2640 ml Output Total 5650 ml 9700 ml 2401 ml Balance -5170 ml 6024 ml -7060 ml -2401 ml Intake Oral 480 ml 2640 ml IV Total 6024 ml Output Urine Total 5650 ml 9700 ml 2400 ml Stool Total 1 ml Result Diagram: 03/24/17 0839 03/24/17 0839 Imaging Last Impressions Abdomen/Pelvis CT 03/20/17 192 Signed Impressions: Service Date/Time: Monday, March 20, 2017 22:26 - CONCLUSION: 1. Massively enlarged and potentially hemorrhagic prostate. 2. Hemorrhage or mass suspected in the urinary bladder. 3. No other acute abnormalities are seen. Liver is fatty infiltrated and there are benign bilateral renal cysts. Endy Bradford MD Lower Extremity Ultrasound 03/20/17 0000 Signed Impressions: Service Date/Time: Monday, March 20, 2017 20:37 - CONCLUSION: No DVT demonstrated of either lower extremity. Endy Bradford MD Objective Remarks GENERAL: Well-developed, well-nourished in no distress CARDIOVASCULAR: Regular rate and rhythm. RESPIRATORY: No accessory muscle use. Clear to auscultation. Breath sounds equal bilaterally. GASTROINTESTINAL: Abdomen soft, non-tender, with Saxena catheter in place draining red tinged urine Extremities no cyanosis but with bilateral lower extremity pitting edema NEUROLOGICAL: Awake and alert. No obvious cranial nerve deficits. Motor grossly within normal limits. Five out of 5 muscle strength in the arms and legs. Normal speech. Procedures Cystoscopy with clot evacuation and fulguration of enlarged prostate gland A/P Problem List: (1) Gross hematuria ICD Code: R31.0 - Gross hematuria Status: Acute (2) Urinary retention ICD Code: R33.9 - Retention of urine, unspecified Status: Acute Assessment and Plan (1) Gross hematuria ICD Code: R31.0 - Gross hematuria Status: Acute (2) Urinary retention ICD Code: R33.9 - Retention of urine, unspecified Status: Acute Assessment and Plan This is a 56-year-old male with a history of hypertension, mental retardation and enlarged prostate. Patient was seen in the emergency department over 2 weeks ago for hematuria and was diagnosed with UTI and prescribed ciprofloxacin and Flomax. Patient reports of persistent hematuria with onset of constant severe sharp lower elbow pain worse when he urinates for the past 2 days associated with dysuria and constipation. Ultrasound shows massively enlarged and possibly hemorrhagic prostate and hemorrhage or mass in the urinary bladder. Gross hematuria with urinary retention and history of enlarged prostate. Status post Cystoscopy with clot evacuation and fulguration of enlarged prostate gland. Still with hematuria. Continue CBI. Pain management with Lortab and IV morphine. ff Dr Patel Acute anemia secondary to blood loss. Hemodynamically stable. Improved Acute kidney injury. Nonoliguric. Improved. Discontinue IV hydration. Avoid nephrotoxins. Mild AST elevation with fatty infiltration on sonogram. Monitor Bilateral lower extremity swelling with negative DVT on studies Constipation. Continue bowel regimen Leukocytosis likely reactive. Improving. Continue to monitor DVT prophylaxis with SCD and early ambulation. Pharmacological prophylaxis contraindicated at this time secondary to bleeding Discharge Planning Discharge when cleared by Heather Castrejon MD Mar 26, 2017 07:20
[2017-03-26 07:53] LABS: AUTOMATED NEUTROPHIL # 5.5 TH/MM3 (1.8-7.7); BASOPHIL # 0.1 TH/MM3 (0-0.2); BASOPHIL % 0.7 % (0.0-2.0); EOSINOPHIL # 0.6 TH/MM3 (0-0.4); EOSINOPHIL % 6.1 % (0.0-4.0); HEMATOCRIT 23.4 % (39.0-51.0); HEMO FLAGS DIFF FINAL; LYMPH % 26.1 % (9.0-44.0); LYMPHOCYTE # 2.4 TH/MM3 (1.0-4.8); MEAN CELL VOLUME 82.6 FL (80.0-100.0); MEAN CORPUSCULAR HEMOGLOBIN 27.4 PG (27.0-34.0); MEAN CORPUSCULAR HGB CONC 33.1 % (32.0-36.0); MONO % 8.4 % (0.0-8.0); NEUT % 58.7 % (16.0-70.0); PLATELET COUNT 236 TH/MM3 (150-450); RED BLOOD COUNT 2.84 MIL/MM3 (4.50-5.90); RED CELL DISTRIBUTION WIDTH 14.3 % (11.6-17.2); WHITE BLOOD COUNT 9.4 TH/MM3 (4.0-11.0)
[2017-03-26 08:21] LABS: BICARBONATE 28.3 MEQ/L (21.0-32.0); POTASSIUM 3.8 MEQ/L (3.5-5.1)
[2017-03-26] MEDS: DOCUSATE SODIUM 50 MG/SENNA 8.6 MG TAB PO SCH ×2 (08:46→21:00)
[2017-03-26] MEDS: ACETAMINOPHEN/HYDROcodone 325 MG/10 MG TAB PO PRN ×3 (08:47→22:20)
[2017-03-26] MEDS: SODIUM CHLORIDE 0.9% FLUSH 10 ML FLUSH IV FLUSH SCH ×2 (08:47→21:58)
--- NOTE | 2017-03-26 12:19 | HHI.PR ---
Subjective Patient symptoms today Pt seen and examined. Urine is clear. Objective Vital Signs Vital Signs Date Time Temp Pulse Resp B/P (MAP) Pulse Ox O2 Delivery O2 Flow Rate FiO2 03/26/17 08:50 97.6 83 18 113/59 (77) 92 03/26/17 04:27 71 03/26/17 04:00 98.3 77 18 115/56 (75) 97 03/26/17 01:08 79 03/26/17 00:00 98.1 80 18 150/56 (87) 95 03/25/17 20:05 89 03/25/17 20:00 99.1 94 18 131/60 (83) 96 03/25/17 16:00 97.7 86 19 122/57 (78) 98 Intake & Output 03/26/17 03/26/17 07:00 19:00 Intake Total 240 ml Output Total 2401 ml Balance -2161 ml Intake Oral 240 ml Output Urine Total 2400 ml Stool Total 1 ml Result Diagram: 03/26/1733 03/26/17632 Objective Remarks Abd:soft,nt,nd Bryan: clear urine; CBI clamped to off. 03/26 Abd:soft,nt,nd Bryan: clear urine; CBI off Medications and IVs Current Medications Medications (Trade) Dose Ordered Sig/Briseyda Route Start Time Stop Time Status Last Admin (NS Flush) 2 ml UNSCH PRN IV FLUSH 03/21/17 01:15 (NS Flush) 2 ml BID IV FLUSH 03/21/17 09:00 03/26/17 08:47 (Tylenol) 650 mg Q4H PRN PO 03/21/17 08:45 (Zofran Inj) 4 mg Q6H PRN IVP 03/21/17 08:45 (Tylenol) 650 mg Q6H PRN PO 03/21/17 08:45 ([place] 5-325 Mg) 1 tab Q4H PRN PO 03/21/17 08:45 ([place] 10-325 Mg) 1 tab Q4H PRN PO 03/21/17 08:45 03/26/17 08:47 (Morphine Inj) 1 mg Q3H PRN IV PUSH 03/21/17 08:45 (Lucía-Colace) 1 tab BID PO 03/21/17 09:00 03/26/17 08:46 (Milk Of Magnesia Liq) 30 ml Q12H PRN PO 03/21/17 08:45 (Senokot) 17.2 mg Q12H PRN PO 03/21/17 08:45 (Dulcolax Supp) 10 mg DAILY PRN RECTAL 03/21/17 08:45 (Lactulose Liq) 30 ml DAILY PRN PO 03/21/17 08:45 03/23/17 22:18 Aminocaproic Acid 3000 mg/Sodium Chloride 3,012 ml @ 0 mls/hr UNSCH IRRIGATION 03/21/17 15:00 03/26/17 04:48 (B & O Supp) 60 mg Q6HR PRN RECTAL 03/21/17 15:00 Assessment and Plan Assessment and Plan Stable s/p cysto with clot evacuation with fulguration. Bleeding secondary to enlarged prostate. Stable for discharge today. Bryan to leg bag. F/U next week for possible void trial. 03/26 Stable s/p cysto with clot evacuation and fulguration. D/c home with bryan catheter F/U on Saturday for void trial. Juan Patel DO Mar 26, 2017 12:19
--- NOTE | 2017-03-26 14:15 | HHI.DS ---
Discharge Summary Admission Date Mar 21, 2017 at 01:19 Discharge Date: Mar 28, 2017 Admitting Diagnosis Gross hematuria, urinary retention (1) Gross hematuria ICD Code: R31.0 - Gross hematuria Status: Acute (2) Urinary retention ICD Code: R33.9 - Retention of urine, unspecified Status: Acute Procedures Cystoscopy with clot evacuation and fulguration of enlarged prostate gland Brief History - From Admission This is a 56-year-old male with a history of hypertension, mental retardation and enlarged prostate. Patient was seen in the emergency department over 2 weeks ago for hematuria and was diagnosed with UTI and prescribed ciprofloxacin and Flomax. Patient reports of persistent hematuria with onset of constant severe sharp lower elbow pain worse when he urinates for the past 2 days associated with dysuria and constipation. Ultrasound shows hemorrhagic prostate and hemorrhage or mass in the urinary bladder. Case discussed with urology who will take patient to the OR for cystoscopy later today. At this time patient has no complaints agrees with plans. All other systems reviewed negative CBC/BMP: 03/26/17 0633 03/26/17 0633 Significant Findings Laboratory Tests Test 03/24/17 08:39 03/26/17 06:33 White Blood Count 14.2 TH/MM3 (4.0-11.0) Red Blood Count 3.50 MIL/MM3 (4.50-5.90) 2.84 MIL/MM3 (4.50-5.90) Hemoglobin 9.5 GM/DL (13.0-17.0) 7.8 GM/DL (13.0-17.0) Hematocrit 29.3 % (39.0-51.0) 23.4 % (39.0-51.0) Neutrophils (%) (Auto) 72.7 % (16.0-70.0) Monocytes (%) (Auto) 10.6 % (0.0-8.0) 8.4 % (0.0-8.0) Neutrophils # (Auto) 10.3 TH/MM3 (1.8-7.7) Monocytes # (Auto) 1.5 TH/MM3 (0-0.9) Estimat Glomerular Filtration Rate 79 ML/MIN (>89) 78 ML/MIN (>89) Eosinophils (%) (Auto) 6.1 % (0.0-4.0) Eosinophils # (Auto) 0.6 TH/MM3 (0-0.4) Calcium Level 8.3 MG/DL (8.5-10.1) Imaging Last Impressions Abdomen/Pelvis CT 03/20/17 1922 Signed Impressions: Service Date/Time: Monday, March 20, 2017 22:26 - CONCLUSION: 1. Massively enlarged and potentially hemorrhagic prostate. 2. Hemorrhage or mass suspected in the urinary bladder. 3. No other acute abnormalities are seen. Liver is fatty infiltrated and there are benign bilateral renal cysts. Endy Bradford MD Lower Extremity Ultrasound 03/20/17 0000 Signed Impressions: Service Date/Time: Saturday, March 20, 2017 20:37 - CONCLUSION: No DVT demonstrated of either lower extremity. Endy Bradford MD PE at Discharge GENERAL: Well-developed, well-nourished in no distress CARDIOVASCULAR: Regular rate and rhythm. RESPIRATORY: No accessory muscle use. Clear to auscultation. Breath sounds equal bilaterally. GASTROINTESTINAL: Abdomen soft, non-tender, with Bryan catheter in place draining red tinged urine Extremities no cyanosis but with bilateral lower extremity pitting edema NEUROLOGICAL: Awake and alert. No obvious cranial nerve deficits. Motor grossly within normal limits. Five out of 5 muscle strength in the arms and legs. Normal speech. Hospital Course This is a 56-year-old male with a history of hypertension, mental retardation and enlarged prostate. Patient was seen in the emergency department over 2 weeks ago for hematuria and was diagnosed with UTI and prescribed ciprofloxacin and Flomax. Patient reports of persistent hematuria with onset of constant severe sharp lower elbow pain worse when he urinates for the past 2 days associated with dysuria and constipation. Ultrasound shows massively enlarged and possibly hemorrhagic prostate and hemorrhage or mass in the urinary bladder. Patient with gross hematuria with urinary retention and history of enlarged prostate. Status post Cystoscopy with clot evacuation and fulguration of enlarged prostate gland. Continue CBI per urology. Received pain management with Lortab and IV morphine. ff Dr Patel HGB 7.8 ( 03/26/17) however patient is asymptomatic at this time. Will give blood transfusion if symptomatic or if HGB < 7 Leukocytosis resolved. Improved, hematuria resolving, discharge with bryan per urology , to follow up as OP with PCP and consultants. Gross hematuria with urinary retention and history of enlarged prostate. Status post Cystoscopy with clot evacuation and fulguration of enlarged prostate gland. Continue CBI per urology. Pain management with Lortab and IV morphine. ff Dr Patel HGB 7.8 ( 03/26/17) however patient is asymptomatic at this time. Will give blood transfusion if symptomatic or if HGB < 7 Leukocytosis resolved Acute anemia secondary to blood loss. Hemodynamically stable. Improved Acute kidney injury. Nonoliguric. Improved. Discontinue IV hydration. Avoid nephrotoxins. Mild AST elevation with fatty infiltration on sonogram. Monitor Bilateral lower extremity swelling with negative DVT on studies Constipation. Continue bowel regimen Leukocytosis likely reactive. Improving. Continue to monitor DVT prophylaxis with SCD and early ambulation. Pharmacological prophylaxis contraindicated at this time secondary to bleeding Discharge Planning Discharge when cleared by Pt Condition on Discharge: Stable Discharge Disposition: Disch w/ Home Health Serv Discharge Time: > 30 minutes Discharge Instructions DIET: Follow Instructions for: As Tolerated, No Restrictions Activities you can perform: Regular-No Restrictions Follow up Referrals: PCP Follow-up - 1 Week Urology - 03/29/17 with Juan Patel DO New Medications: Ferrous Sulfate (Ferrous Sulfate) 325 Mg (65 Mg Iron) Tablet 325 MG PO DAILY for Nutritional Supplement, #30 TAB 0 Refills Hydrocodone-Acetaminophen (Hydrocodone-Acetaminophen) 10-325 mg Tab 1 TAB PO Q6H PRN for PAIN SCALE 6 TO 10, #28 TAB Sennosides-Docusate Sodium (Senna Plus 8.6-50 mg) 8.6 Mg-50 Mg Tab 1 TAB PO BID for Constipation, #60 TAB Heather Rubalcava MD Mar 26, 2017 14:15
[2017-03-26] MEDS: LACTULOSE SYRUP 20 GM/30 ML CUP PO PRN (15:53)
[2017-03-27] VITALS: BP 111/51; PULSE 65; PULSE 82; RESP 17; TEMP 97.7; O2SAT 98
[2017-03-27 04:00] VITALS: BP 109/71; PULSE 61; PULSE 80; RESP 17; TEMP 97.1; O2SAT 96
[2017-03-27 07:50] VITALS: BP 128/66; PULSE 90; RESP 20; TEMP 96.8; O2SAT 98
[2017-03-27 08:00] LABS: AUTOMATED NEUTROPHIL # 5.3 TH/MM3 (1.8-7.7); BASOPHIL # 0.1 TH/MM3 (0-0.2); BASOPHIL % 0.7 % (0.0-2.0); EOSINOPHIL # 0.5 TH/MM3 (0-0.4); EOSINOPHIL % 5.5 % (0.0-4.0); HEMATOCRIT 23.2 % (39.0-51.0); HEMO FLAGS DIFF FINAL; LYMPH % 24.5 % (9.0-44.0); LYMPHOCYTE # 2.2 TH/MM3 (1.0-4.8); MEAN CELL VOLUME 82.5 FL (80.0-100.0); MEAN CORPUSCULAR HEMOGLOBIN 27.5 PG (27.0-34.0); MEAN CORPUSCULAR HGB CONC 33.3 % (32.0-36.0); MONO % 9.3 % (0.0-8.0); PLATELET COUNT 271 TH/MM3 (150-450); RED BLOOD COUNT 2.82 MIL/MM3 (4.50-5.90); RED CELL DISTRIBUTION WIDTH 14.3 % (11.6-17.2); WHITE BLOOD COUNT 8.9 TH/MM3 (4.0-11.0)
[2017-03-27] MEDS: DOCUSATE SODIUM 50 MG/SENNA 8.6 MG TAB PO SCH ×2 (08:00→21:00)
[2017-03-27] MEDS: SODIUM CHLORIDE 0.9% FLUSH 10 ML FLUSH IV FLUSH SCH ×2 (08:05→21:19)
[2017-03-27 08:30] LABS: BICARBONATE 29.1 MEQ/L (21.0-32.0); POTASSIUM 4.1 MEQ/L (3.5-5.1)
[2017-03-27] MEDS: ACETAMINOPHEN/HYDROcodone 325 MG/10 MG TAB PO PRN ×2 (09:07→13:59)
--- NOTE | 2017-03-27 09:20 | HHI.PR ---
Subjective Remarks With bloody urine. HGB is stable. No lightheadedness, no chest pain or sob. No fever or chills. No n/v/d/c. Objective Vitals Vital Signs Date Time Temp Pulse Resp B/P (MAP) Pulse Ox O2 Delivery O2 Flow Rate FiO2 03/27/17 04:00 97.1 80 17 109/71 (84) 96 03/27/17 04:00 61 03/27/17 00:00 65 03/27/17 00:00 97.7 82 17 111/51 (71) 98 03/26/17 20:00 95 03/26/17 20:00 97.0 75 17 123/55 (77) 98 03/26/17 16:00 98.8 98 18 143/96 (112) 96 03/26/17 12:00 97.5 76 18 124/55 (78) 96 I/O 03/26/17 03/26/17 03/26/17 03/27/17 03/27/17 03/27/17 07:00 15:00 23:00 07:00 15:00 23:00 Intake Total 840 ml Output Total 2401 ml 3652 ml 650 ml Balance -2401 ml -2812 ml -650 ml Intake Oral 840 ml Output Urine Total 2400 ml 3650 ml 650 ml Stool Total 1 ml 2 ml # Bowel Movements 1 Result Diagram: 03/27/1772103/27/17721 Imaging Last Impressions Abdomen/Pelvis CT 03/20/17 192 Signed Impressions: Service Date/Time: Monday, March 20, 2017 22:26 - CONCLUSION: 1. Massively enlarged and potentially hemorrhagic prostate. 2. Hemorrhage or mass suspected in the urinary bladder. 3. No other acute abnormalities are seen. Liver is fatty infiltrated and there are benign bilateral renal cysts. Endy Bradford MD Lower Extremity Ultrasound 03/20/17 0000 Signed Impressions: Service Date/Time: Monday, March 20, 2017 20:37 - CONCLUSION: No DVT demonstrated of either lower extremity. Endy Bradford MD Objective Remarks GENERAL: Well-developed, well-nourished in no distress CARDIOVASCULAR: Regular rate and rhythm. RESPIRATORY: No accessory muscle use. Clear to auscultation. Breath sounds equal bilaterally. GASTROINTESTINAL: Abdomen soft, non-tender, with Saxena catheter in place draining red tinged urine Extremities no cyanosis but with bilateral lower extremity pitting edema NEUROLOGICAL: Awake and alert. No obvious cranial nerve deficits. Motor grossly within normal limits. Five out of 5 muscle strength in the arms and legs. Normal speech. Procedures Cystoscopy with clot evacuation and fulguration of enlarged prostate gland A/P Problem List: (1) Gross hematuria ICD Code: R31.0 - Gross hematuria Status: Acute (2) Urinary retention ICD Code: R33.9 - Retention of urine, unspecified Status: Acute Assessment and Plan This is a 56-year-old male with a history of hypertension, mental retardation and enlarged prostate. Patient was seen in the emergency department over 2 weeks ago for hematuria and was diagnosed with UTI and prescribed ciprofloxacin and Flomax. Patient reports of persistent hematuria with onset of constant severe sharp lower elbow pain worse when he urinates for the past 2 days associated with dysuria and constipation. Ultrasound shows massively enlarged and possibly hemorrhagic prostate and hemorrhage or mass in the urinary bladder. Gross hematuria with urinary retention and history of enlarged prostate. Status post Cystoscopy with clot evacuation and fulguration of enlarged prostate gland. Still with hematuria. Continue CBI. Pain management with Lortab and IV morphine. ff Dr Patel Acute anemia secondary to blood loss. Hemodynamically stable. HGB at 7.7 . Patient is asymptomatic at this time. Transfuse if HGB< 7 or if symptomatic. Acute kidney injury. Nonoliguric. Improved. Discontinue IV hydration. Avoid nephrotoxins. Mild AST elevation with fatty infiltration on sonogram. Monitor Bilateral lower extremity swelling with negative DVT on studies Constipation. Continue bowel regimen Leukocytosis likely reactive. Improving. Monitor DVT prophylaxis with SCD and early ambulation. Pharmacological prophylaxis contraindicated at this time secondary to bleeding Discharge Planning Discharge when cleared by Heather Castrejon MD Mar 27, 2017 09:20
[2017-03-27 11:50] VITALS: BP 132/66; PULSE 80; RESP 20; TEMP 97.8; O2SAT 98
[2017-03-27 15:54] VITALS: BP 138/62; PULSE 76; RESP 20; TEMP 97.6; O2SAT 94
[2017-03-27 20:00] VITALS: BP 120/56; PULSE 73; PULSE 76; RESP 17; TEMP 97.2; O2SAT 98
[2017-03-27] MEDS: AMINOCAPROIC ACID INJ 3,000 MG in SODIUM CHLORIDE 0.9% IRR BAG 3,000 ML IRRIGATION SCH (22:11)
[2017-03-28] VITALS: BP 140/61; PULSE 83; RESP 17; TEMP 98.1; O2SAT 99
[2017-03-28 04:00] VITALS: BP 123/58; PULSE 65; PULSE 79; RESP 18; O2SAT 97
[2017-03-28 07:30] VITALS: BP 124/58; PULSE 71; RESP 20; TEMP 97.1; O2SAT 99
[2017-03-28 08:00] VITALS: PULSE 74
[2017-03-28] MEDS ORDERED: FERR325T8 PO (08:04)
--- NOTE | 2017-03-28 08:05 | HHI.PR ---
Subjective Remarks In bed, feels better. No more clots in his urine. Urine is clearing up. No fever or chills. No pain. Objective Vitals Vital Signs Date Time Temp Pulse Resp B/P (MAP) Pulse Ox O2 Delivery O2 Flow Rate FiO2 03/28/17 04:00 65 03/28/17 04:00 79 18 123/58 (79) 97 03/28/17 00:00 98.1 83 17 140/61 (87) 99 03/27/17 20:00 97.2 76 17 120/56 (77) 98 03/27/17 20:00 73 03/27/17 15:54 97.6 76 20 138/62 (87) 94 03/27/17 11:50 97.8 80 20 132/66 (88) 98 I/O 03/27/17 03/27/17 03/27/17 03/28/17 03/28/17 03/28/17 07:00 15:00 23:00 07:00 15:00 23:00 Intake Total 1204 ml Output Total 650 ml 7800 ml 750 ml Balance -650 ml -6596 ml -750 ml Intake Oral 1204 ml Output Urine Total 650 ml 7800 ml 750 ml # Bowel Movements 1 2 Result Diagram: 03/27/1772103/27/17721 Imaging Last Impressions Abdomen/Pelvis CT 03/20/171921 Signed Impressions: Service Date/Time: Monday, March 20, 2017 22:26 - CONCLUSION: 1. Massively enlarged and potentially hemorrhagic prostate. 2. Hemorrhage or mass suspected in the urinary bladder. 3. No other acute abnormalities are seen. Liver is fatty infiltrated and there are benign bilateral renal cysts. Endy Bradford MD Lower Extremity Ultrasound 03/20/17 0000 Signed Impressions: Service Date/Time: Monday, March 20, 2017 20:37 - CONCLUSION: No DVT demonstrated of either lower extremity. Endy Bradford MD Objective Remarks GENERAL: Well-developed, well-nourished in no distress CARDIOVASCULAR: Regular rate and rhythm. RESPIRATORY: No accessory muscle use. Clear to auscultation. Breath sounds equal bilaterally. GASTROINTESTINAL: Abdomen soft, non-tender, with Saxena catheter in place draining red tinged urine Extremities no cyanosis but with bilateral lower extremity pitting edema NEUROLOGICAL: Awake and alert. No obvious cranial nerve deficits. Motor grossly within normal limits. Five out of 5 muscle strength in the arms and legs. Normal speech. Procedures Cystoscopy with clot evacuation and fulguration of enlarged prostate gland A/P Problem List: (1) Gross hematuria ICD Code: R31.0 - Gross hematuria Status: Acute (2) Urinary retention ICD Code: R33.9 - Retention of urine, unspecified Status: Acute Assessment and Plan This is a 56-year-old male with a history of hypertension, mental retardation and enlarged prostate. Patient was seen in the emergency department over 2 weeks ago for hematuria and was diagnosed with UTI and prescribed ciprofloxacin and Flomax. Patient reports of persistent hematuria with onset of constant severe sharp lower elbow pain worse when he urinates for the past 2 days associated with dysuria and constipation. Ultrasound shows massively enlarged and possibly hemorrhagic prostate and hemorrhage or mass in the urinary bladder. Gross hematuria with urinary retention and history of enlarged prostate. Status post Cystoscopy with clot evacuation and fulguration of enlarged prostate gland. Still with hematuria. Continue CBI. Pain management with Lortab and IV morphine. ff Dr Patel Acute anemia secondary to blood loss. Hemodynamically stable. HGB at 7.7 . Patient is asymptomatic at this time. Transfuse if HGB< 7 or if symptomatic. Acute kidney injury. Nonoliguric. Improved. Discontinue IV hydration. Avoid nephrotoxins. Mild AST elevation with fatty infiltration on sonogram. Monitor Bilateral lower extremity swelling with negative DVT on studies Constipation. Continue bowel regimen Leukocytosis likely reactive. Improving. Monitor DVT prophylaxis with SCD and early ambulation. Pharmacological prophylaxis contraindicated at this time secondary to bleeding Discharge Planning Discharge home , to f/u tomorrow with Dr Patel urology in his office Heather Rubalcava MD Mar 28, 2017 08:05
[2017-03-28] MEDS ORDERED: FERROUS SULFATE 325 MG (65 MG ELEMENTAL IRON) TAB PO SCH (09:00)
[2017-03-28] MEDS: DOCUSATE SODIUM 50 MG/SENNA 8.6 MG TAB PO SCH (10:13)
[2017-03-28] MEDS: SODIUM CHLORIDE 0.9% FLUSH 10 ML FLUSH IV FLUSH SCH (10:13)
[2017-03-28 11:30] VITALS: BP 126/87; PULSE 79; RESP 20; TEMP 97.5; O2SAT 99
[2017-03-28 12:00] VITALS: PULSE 83
--- NOTE | 2017-03-28 13:41 | HHI.FF ---
Face to Face Verification Diagnosis: (1) Gross hematuria (2) Urinary retention Home Health Nursing Order: Medical education Signs/symptoms of disease process Medication education-adverse effect Nursing assessment with vital signs Saxena catheter maintenance I have seen patient Endy Mcintosh on 03/28/17. My clinical findings support the need for the requested home health care services because: Deconditioned w/ increased weakness Need for psychosocial assistance I certify that my clinical findings support that this patient is homebound because: Need for psychosocial assistance Heather Rubalcava MD Mar 28, 2017 13:40
[2017-03-29] MEDS ORDERED: GABA300C5 PO (10:52)
== END 2017-03-28 14:22 | disposition home or self-care (01) | DRG 717 ==
LOC: NEPD 16:51 → NEDA 03-21 01:18 → OBSVTOIN 03-21 01:19 → HOCA 03-21 02:57
PROVIDERS: ADMIT Hospitalist; ATTEND Hospitalist
PROC: 0TCB8ZZ Extirpation of Matter from Bladder, Via Natural or Artificial Opening Endoscopic (ICD-10-PCS; 2017-03-21)
PROC: 0W3R8ZZ Control Bleeding in Genitourinary Tract, Via Natural or Artificial Opening Endoscopic (ICD-10-PCS; principal; 2017-03-21 10:50)
DX: N42.1 Congestion and hemorrhage of prostate (principal); D62 Acute posthemorrhagic anemia; N17.9 Acute kidney failure, unspecified; I10 Essential (primary) hypertension; N40.1 Benign prostatic hyperplasia with lower urinary tract symptoms; R33.8 Other retention of urine; R31.0 Gross hematuria; F81.9 Developmental disorder of scholastic skills, unspecified; F79 Unspecified intellectual disabilities; K59.00 Constipation, unspecified; M79.89 Other specified soft tissue disorders; Z23 Encounter for immunization
CPT/HCPCS: 51700; 74177; 80048; 80053; 81001; 83735; 83880; 85025; 85610; 85730; 87086; 87491; 87591; 90471; 90472; 90686; 90732; 93005; 93970; C1769; G0008; G0009; J0690; J1100; J2250; J2270; J2370; J2405; J2710; J2765; J3010; J3480; J7030; Q2038; Q9967

== ENCOUNTER → 2017-05-09 | Day surgery (SDC) | payer MEDICARE ==
[~2017-05-09] MED LIST changes: +CHLORHEXIDINE GLUCONATE 2 % 1 PACK (2 CLOTHS) TOPICAL PRN; -CIPR-9 PO; +FERR325T18 PO; +LACTATED RINGER'S 1000 ML IV PRN; +METOPROLOL TARTRATE 25 MG TAB PO PRN; +POVIDONE IODINE 5% (ANTISEPSIS KIT) 4 APPLICATIONS EACH NARE PRN; +SENN1TAB PO; +SODIUM CHLORID 0.9% 500 ML IV PRN; -TAMS5CAP PO; +ceFAZolin 1,000 MG/NS 100 ML IV SCH
[2017-05-09 11:24] LABS: AUTOMATED NEUTROPHIL # 2.4 TH/MM3 (1.8-7.7); BASOPHIL # 0.1 TH/MM3 (0-0.2); BASOPHIL % 1.3 % (0.0-2.0); EOSINOPHIL # 0.3 TH/MM3 (0-0.4); EOSINOPHIL % 5.3 % (0.0-4.0); HEMATOCRIT 35.2 % (39.0-51.0); HEMO FLAGS DIFF FINAL; LYMPH % 38.6 % (9.0-44.0); MEAN CELL VOLUME 73.9 FL (80.0-100.0); MEAN CORPUSCULAR HEMOGLOBIN 23.1 PG (27.0-34.0); MEAN CORPUSCULAR HGB CONC 31.2 % (32.0-36.0); MONO % 8.5 % (0.0-8.0); NEUT % 46.3 % (16.0-70.0); PLATELET COUNT 390 TH/MM3 (150-450); RED BLOOD COUNT 4.77 MIL/MM3 (4.50-5.90); RED CELL DISTRIBUTION WIDTH 18.4 % (11.6-17.2); WHITE BLOOD COUNT 5.1 TH/MM3 (4.0-11.0)
== END | disposition home or self-care (01) ==
LOC: HSDC 10:20
PROVIDERS: ATTEND Urology
DX: Z53.8 Procedure and treatment not carried out for other reasons (principal)
CPT/HCPCS: 85025; G0463; 99211

== ENCOUNTER 2017-05-31 09:03 | Inpatient (IN) | payer MEDICARE ==
[~2017-05-31] VITALS: Ht 172.7 cm; Wt 98.0 kg
[~2017-05-31 09:03] MED LIST changes: -CHLORHEXIDINE GLUCONATE 2 % 1 PACK (2 CLOTHS) TOPICAL PRN; -LACTATED RINGER'S 1000 ML IV PRN; -METOPROLOL TARTRATE 25 MG TAB PO PRN; -POVIDONE IODINE 5% (ANTISEPSIS KIT) 4 APPLICATIONS EACH NARE PRN; -SODIUM CHLORID 0.9% 500 ML IV PRN; -ceFAZolin 1,000 MG/NS 100 ML IV SCH
[2017-05-31] MEDS ORDERED: ACETAMINOPHEN 1000 MG/100 ML 100 ML IV ONE (09:41)
[2017-05-31 10:16] LABS: BASOPHIL # 0.1 TH/MM3 (0-0.2); EOSINOPHIL # 0.3 TH/MM3 (0-0.4); EOSINOPHIL % 5.5 % (0.0-4.0); HEMATOCRIT 35.6 % (39.0-51.0); HEMO FLAGS DIFF FINAL; LYMPH % 35.5 % (9.0-44.0); LYMPHOCYTE # 2.1 TH/MM3 (1.0-4.8); MEAN CELL VOLUME 71.9 FL (80.0-100.0); MEAN CORPUSCULAR HEMOGLOBIN 22.8 PG (27.0-34.0); MEAN CORPUSCULAR HGB CONC 31.7 % (32.0-36.0); MONO % 7.7 % (0.0-8.0); NEUT % 50.3 % (16.0-70.0); PLATELET COUNT 296 TH/MM3 (150-450); RED BLOOD COUNT 4.95 MIL/MM3 (4.50-5.90); RED CELL DISTRIBUTION WIDTH 18.8 % (11.6-17.2)
[2017-05-31] MEDS ORDERED: CHLORHEXIDINE GLUCONATE 2 % 1 PACK (2 CLOTHS) TOPICAL PRN (10:30)
[2017-05-31] MEDS ORDERED: POVIDONE IODINE 5% (ANTISEPSIS KIT) 4 APPLICATIONS EACH NARE PRN (10:30)
[2017-05-31] MEDS ORDERED: INSULIN HUMAN REGULAR 1,000 UNITS/10 ML VIAL SQ PRN (10:30)
[2017-05-31] MEDS ORDERED: GENTAMICIN INJ 240 MG in SODIUM CHLORIDE 0.9% INJ 100 ML IV SCH (10:30)
[2017-05-31] MEDS ORDERED: AMPICILLIN 1 GM/NS 100 ML IV SCH ×2 (10:30)
[2017-05-31] MEDS ORDERED: SODIUM CHLORID 0.9% 500 ML IV PRN (10:30)
[2017-05-31] MEDS ORDERED: LACTATED RINGER'S 1000 ML IV PRN (10:30)
[2017-05-31] MEDS ORDERED: METOPROLOL TARTRATE 25 MG TAB PO PRN (10:30)
[2017-05-31] MEDS ORDERED: BUPIVACAINE HCL PF 0.5% 30 ML VIAL ONE ×4 (10:35→10:36)
[2017-05-31] MEDS ORDERED: GENTAMICIN SULFATE 80 MG/2 ML VIAL ONE (10:36)
[2017-05-31 10:41] LABS: INTERNATIONAL NORMALIZED RATIO 1.1 RATIO; PROTHROMBIN TIME - PATIENT 10.7 SEC (9.8-11.6)
[2017-05-31 10:43] LABS: BICARBONATE 27.6 MEQ/L (21.0-32.0); POTASSIUM 3.6 MEQ/L (3.5-5.1)
[2017-05-31 13:35] LABS: BLOOD GAS BASE EXCESS -4.6 mmol/L (-2-2); BLOOD GAS CARBOXYHEMOGLOBIN 0.9 % (0-4); BLOOD GAS HCO3 20 mmol/L (22-26); BLOOD GAS METHEMOGLOBIN 0.8 % (0-2); BLOOD GAS O2 HGB SATURATION 98 % (90-100); BLOOD GAS OXYGEN CONTENT 13.6 Vol % (12.0-20.0); BLOOD GAS PCO2 40 mmHg (38-42); BLOOD GAS PO2 219 mmHg (61-120); BLOOD GAS TOTAL HGB 9.6 G/DL (12.0-16.0); CRITICAL VALUE NO; DRAW SITE ART LINE; FIO2 50 %; OXYGEN DEVICE VENTILATOR; STAT YES; TEMP CORR TO 98.6; VENT SETTINGS IN OR
[2017-05-31 13:47] LABS: HEMATOCRIT 22.9 % (39.0-51.0); REVIEW FLAG FINAL
[2017-05-31] MEDS ORDERED: diphenhydrAMINE HCL 50 MG/ML VIAL IM PRN (15:00)
[2017-05-31] MEDS ORDERED: ONDANSETRON HCL 4 MG/2 ML VIAL IV PUSH PRN (15:00)
[2017-05-31] MEDS ORDERED: ACETAMINOPHEN 650 MG/20.3 ML UDC PO PRN (15:00)
[2017-05-31] MEDS ORDERED: DO NOT ADM ANY ANTICOAGULANT DRUGS PRN (15:09)
--- NOTE | 2017-05-31 15:11 | PD.OP ---
Operative Report Date of Surgery: May 31, 2017 Preoperative Diagnosis: Urinary retention with gross hematuria and BPH with obstruction Postoperative Diagnosis: Same Procedure: Suprapubic prostatectomy Anesthesia: GETA Surgeon: Juan Patel Change Management Consultant(s): Dr. Héctor Wheat Resident Surgeon: None Operation and Findings: 57-year-old male with a history of urinary retention due to bladder outlet obstruction due to a large prostate with intermittent gross hematuria. Patient underwent cystoscopy with fulguration in the past and was noted that the prostate was over 100 g in size. He has remained with a Saxena catheter in for approximately 6 weeks and elected to undergo suprapubic prostatectomy. Risk of bleeding, incontinence, infection were discussed with the patient and his family and they're willing to proceed. Patient was brought to the operating room and identified by myself as Endy Mcintosh. He was placed on the operating table in the supine position, prepped and draped in usual sterile fashion, received preprocedure antibiotics and general endotracheal tube anesthesia was administered. 26 Belgian Saxena was inserted in the bladder. 15 blade was used to make the opening incision extending from the symphysis pubis to just below the umbilicus. Shannon's and Camper's fascia were then entered and the linea alba was identified. This was split with the Bovie cautery and then the bladder area was palpated in the space of Retzius. The bladder was then filled with continuous bladder irrigation until the bladder was distended. 2-0 Vicryl stay sutures were then placed along the midline of the bladder. The bladder was then incised with the Bovie cautery in the midline region. The prostate was visualized however the ureteral orifices could not be visualized due to the large prostate gland. Using my right index finger the anterior commissure of the prostate was fractured and then the prostate was any enucleated circumferentially. The prostate was then delivered from the prosthetic fossa and off the field. It was sent to pathology. Both ureteral orifices were then identified and were able to be cannulated with 0.35 sensor wire. The bladder neck was reconstructed in the 6:00 and 12:00 positions in order to obtain hemostasis. Hemostasis was obtained after multiple sutures were placed into the bladder neck/prostatic fossa region. Packing was also placed and allowed to sit for approximately 5-10 minutes and the prostatic fascia. Once hemostasis was obtained the packing was then removed. Once hemostasis was obtained, decision was then made to close the bladder. Prior to closing the bladder a 24 [place] drain was placed in the suprapubic region lateral to the incision and into the bladder. This was secured with a 2-0 silk suture. The bladder was then closed with a locking 2-0 Vicryl suture and a 2 layer closure was performed. The second layer was an imbricating suture. Once the bladder was closed then it was tested by irrigating through the Saxena and the Malecot drain was clamped. Good distention of the bladder was identified without leakage. The fascia was then closed with a running 1-0 PDS suture. 2-0 Vicryl was then used to approximate the muscle and the space. [place] were used to then close the skin. Dressing was applied and the patient was awoken and extubated and transferred over stable condition. EBL was approximately 2500 cc and he received 4500 cc of crystalloid. He tolerated the procedure well. Juan Patel DO May 31, 2017 15:11
[2017-05-31] MEDS ORDERED: BELLADONNA ALKALOIDS/OPIUM 60 MG SUPP RECTAL PRN (15:15)
[2017-05-31] MEDS ORDERED: HYDROmorphone HCL PCA 6 MG/30 ML IV ONE (15:50)
[2017-05-31] MEDS ORDERED: HYDROmorphone HCL PCA 6 MG/30 ML IV SCH (16:00)
[2017-05-31] MEDS: LACTATED RINGER'S 1000 ML INJ 1,000 ML IV SCH (16:00)
[2017-05-31] MEDS ORDERED: NALOXONE HCL 0.4 MG/ML AMP IV PUSH PRN (16:00)
[2017-05-31] MEDS ORDERED: *morphine SULFATE 8 MG/ML PERIprocedure ONLY ONE (16:02)
[2017-05-31 16:48] LABS: HEMATOCRIT 35.5 % (39.0-51.0); MEAN CELL VOLUME 80.2 FL (80.0-100.0); MEAN CORPUSCULAR HEMOGLOBIN 26.7 PG (27.0-34.0); MEAN CORPUSCULAR HGB CONC 33.3 % (32.0-36.0); PLATELET COUNT 173 TH/MM3 (150-450); RED BLOOD COUNT 4.43 MIL/MM3 (4.50-5.90); RED CELL DISTRIBUTION WIDTH 20.2 % (11.6-17.2); REVIEW FLAG FINAL; WHITE BLOOD COUNT 18.5 TH/MM3 (4.0-11.0)
[2017-05-31 17:15] LABS: BICARBONATE 27.4 MEQ/L (21.0-32.0); POTASSIUM 3.5 MEQ/L (3.5-5.1)
[2017-05-31 17:42] LABS: CALCIUM-PROTEIN CORRECTED 8.5 MG/DL (8.5-10.1)
[2017-05-31 18:00] VITALS: BP 112/67; PULSE 68; RESP 18; TEMP 95.9; O2SAT 98
[2017-05-31 20:00] VITALS: BP 121/63; PULSE 68; RESP 17; RESP 18; TEMP 95.1; O2SAT 94
[2017-05-31] MEDS: PCA - TOTAL MG DILAUDID DELIVERED PER SHIFT SCH (21:37)
[2017-06-01] VITALS (8 sets, daily range): BP systolic 102–134; BP diastolic 50–68; PULSE 67–88; RESP 16–20; TEMP 95.7–98; O2SAT 96–100
[2017-06-01] MEDS: LACTATED RINGER'S 1000 ML INJ 1,000 ML IV SCH ×3 (01:00→23:35)
[2017-06-01] MEDS: PCA - TOTAL MG DILAUDID DELIVERED PER SHIFT SCH ×3 (05:43→22:00)
[2017-06-01 06:34] LABS: HEMATOCRIT 32.8 % (39.0-51.0); MEAN CELL VOLUME 80.7 FL (80.0-100.0); MEAN CORPUSCULAR HEMOGLOBIN 26.7 PG (27.0-34.0); MEAN CORPUSCULAR HGB CONC 33.1 % (32.0-36.0); PLATELET COUNT 167 TH/MM3 (150-450); RED BLOOD COUNT 4.06 MIL/MM3 (4.50-5.90); RED CELL DISTRIBUTION WIDTH 19.8 % (11.6-17.2); REVIEW FLAG FINAL; WHITE BLOOD COUNT 19.8 TH/MM3 (4.0-11.0)
[2017-06-01 07:04] LABS: BICARBONATE 26.8 MEQ/L (21.0-32.0); POTASSIUM 4.8 MEQ/L (3.5-5.1)
--- NOTE | 2017-06-01 13:23 | HHI.PR ---
Subjective Patient symptoms today Pt seen and examined. OOB to chair. Urine clear on CBI. Objective Vital Signs Vital Signs Date Time Temp Pulse Resp B/P (MAP) Pulse Ox O2 Delivery O2 Flow Rate FiO2 06/01/17 12:00 95.7 73 18 131/68 (89) 96 06/01/17 11:55 100 Nasal Cannula 2.00 06/01/17 08:00 96.5 77 17 113/50 (71) 100 06/01/17 08:00 100 Nasal Cannula 3.00 06/01/17 05:43 18 06/01/17 04:00 96.0 67 16 102/62 (75) 100 06/01/17 00:00 96.2 74 16 114/68 (83) 100 05/31/17 21:37 18 05/31/17 20:00 95.1 68 17 121/63 (82) 94 05/31/17 20:00 Nasal Cannula 3.00 05/31/17 20:00 18 05/31/17 18:00 95.9 68 18 112/67 (82) 98 05/31/17 17:28 20 05/31/17 17:14 99.0 68 20 101/62 (75) 100 Nasal Cannula 2 05/31/17 17:00 68 20 101/62 (75) 100 Nasal Cannula 2 05/31/17 16:45 67 20 105/63 (77) 99 Nasal Cannula 2 05/31/17 16:30 74 20 101/61 (74) 99 Nasal Cannula 2 05/31/17 16:15 67 20 95/57 (70) 99 Nasal Cannula 2 05/31/17 16:00 68 20 110/59 (76) 100 Nasal Cannula 2 05/31/17 15:45 69 20 110/59 (76) 100 Nasal Cannula 2 05/31/17 15:30 68 20 116/65 (82) 97 Nasal Cannula 2 05/31/17 15:15 64 20 111/59 (76) 95 Nasal Cannula 2 05/31/17 15:09 99.0 62 20 119/58 (78) 96 Nasal Cannula 2 Intake & Output 06/01/17 06/01/17 06:59 18:59 Intake Total 1771 ml 100 ml Output Total 475 ml Balance 1296 ml 100 ml Intake Oral 180 ml IV Total 1591 ml 100 ml Output Urine Total 475 ml # Bowel Movements 0 Result Diagram: 06/01/1758 06/01/17557 Objective Remarks CV: RRR Lungs: CTA Abd:soft,nd, incisional tenderness Dressing intact Urine: clear on slow CBI Ext: neg C/C/E Medications and IVs Current Medications Medications (Trade) Dose Ordered Sig/Briseyda Route Start Time Stop Time Status Last Admin (Lopressor) 25 mg COIL WINDER HAND PRN PO 05/31/17 10:30 06/03/17 10:29 (Betadine 5% Antisepsis Kit) 1 applic COIL WINDER HAND PRN EACH NARE 05/31/17 10:30 06/03/17 10:29 05/31/17 10:32 (Chlorhexidine 2% Cloth) 3 pack COIL WINDER HAND PRN TOPICAL 05/31/17 10:30 06/03/17 10:29 05/31/17 10:00 (NovoLIN R INJ) See Protocol Table ... COIL WINDER HAND PRN SQ 05/31/17 10:30 06/03/17 10:29 (Zofran Inj) 4 mg Q6HR PRN IV PUSH 05/31/17 15:00 (Tylenol 650 Mg/ 20 ml Liq) 650 mg Q6H PRN PO 05/31/17 15:00 (Benadryl Inj) 50 mg Q6H PRN IM 05/31/17 15:00 (Percocet 7.5-325 Mg) 1 tab Q6H PRN PO 05/31/17 15:00 Lactated Ringer's 1,000 ml @ 75 mls/hr [id number] IV 05/31/17 15:00 06/01/17 11:30 (B & O Supp) 60 mg Q6HR PRN RECTAL 05/31/17 15:15 Miscellaneous Information ALL NURSING DEPARTME... UNSCH PRN .XX 05/31/17 15:09 06/01/17 15:08 (Dilaudid SCRAP BALER Inj) 6 mg UNSCH IV 05/31/17 16:00 05/31/17 17:28 SCRAP BALER Dosage Infused (Pha) 1 Q8HR .XX 05/31/17 22:00 06/01/17 05:43 (Narcan Inj) 0.4 mg UNSCH PRN IV PUSH 05/31/17 16:00 Assessment and Plan Assessment and Plan Stable s/p SPP OOB/Ambulate Ween CBI to off Full liquid diet Juan Patel DO Jun 01, 2017 13:23
[2017-06-02 04:42] VITALS: BP 137/58; PULSE 84; RESP 20; TEMP 97.5; O2SAT 98
[2017-06-02] MEDS: PCA - TOTAL MG DILAUDID DELIVERED PER SHIFT SCH ×3 (06:00→22:00)
[2017-06-02 08:00] VITALS: BP 116/70; PULSE 78; RESP 19; TEMP 97.1; O2SAT 97
[2017-06-02 08:27] LABS: HEMATOCRIT 28.5 % (39.0-51.0); MEAN CELL VOLUME 79.6 FL (80.0-100.0); MEAN CORPUSCULAR HEMOGLOBIN 26.8 PG (27.0-34.0); MEAN CORPUSCULAR HGB CONC 33.7 % (32.0-36.0); PLATELET COUNT 144 TH/MM3 (150-450); RED BLOOD COUNT 3.58 MIL/MM3 (4.50-5.90); RED CELL DISTRIBUTION WIDTH 20.7 % (11.6-17.2); REVIEW FLAG FINAL; WHITE BLOOD COUNT 12.5 TH/MM3 (4.0-11.0)
[2017-06-02 08:49] LABS: BICARBONATE 31.6 MEQ/L (21.0-32.0); POTASSIUM 3.8 MEQ/L (3.5-5.1)
--- NOTE | 2017-06-02 09:24 | HHI.PR ---
Subjective Patient symptoms today Pt seen and examined. Pt OOB in chair. Some abdominal discomfort. Objective Vital Signs Vital Signs Date Time Temp Pulse Resp B/P (MAP) Pulse Ox O2 Delivery O2 Flow Rate FiO2 06/02/17 08:00 97.1 78 19 116/70 (85) 97 06/02/17 06:00 18 06/02/17 04:42 97.5 84 20 137/58 (84) 98 06/01/17 23:55 97.5 87 20 134/54 (80) 100 06/01/17 22:00 20 06/01/17 20:03 98.0 88 20 125/62 (83) 99 06/01/17 19:55 Nasal Cannula 2.00 06/01/17 16:00 96.9 84 19 130/61 (84) 98 06/01/17 14:00 18 06/01/17 12:00 95.7 73 18 131/68 (89) 96 06/01/17 11:55 100 Nasal Cannula 2.00 Intake & Output 06/02/17 06/02/17 07:00 19:00 Intake Total 2.0 ml Output Total 2200 ml Balance -2198.0 ml Intake Oral 0 ml IV Total 2.0 ml Output Urine Total 2200 ml # Bowel Movements 0 Result Diagram: 06/02/1748 06/02/17 0748 Objective Remarks CV: RRR Lungs: CTA Abd:soft,nd, incisional tenderness Dressing intact Urine: clear on slow CBI Ext: neg C/C/E 06/02 Abd:soft,distension, incisional tenderness Saxena and SP tube clear Dressing intact Ext: neg C/C/E Medications and IVs Current Medications Medications (Trade) Dose Ordered Sig/Briseyda Route Start Time Stop Time Status Last Admin (Lopressor) 25 mg FREEZER TUNNEL OPERATOR PRN PO 05/31/17 10:30 06/03/17 10:29 (Betadine 5% Antisepsis Kit) 1 applic FREEZER TUNNEL OPERATOR PRN EACH NARE 05/31/17 10:30 06/03/17 10:29 05/31/17 10:32 (Chlorhexidine 2% Cloth) 3 pack FREEZER TUNNEL OPERATOR PRN TOPICAL 05/31/17 10:30 06/03/17 10:29 05/31/17 10:00 (NovoLIN R INJ) See Protocol Table ... FREEZER TUNNEL OPERATOR PRN SQ 05/31/17 10:30 06/03/17 10:29 (Zofran Inj) 4 mg Q6HR PRN IV PUSH 05/31/17 15:00 (Tylenol 650 Mg/ 20 ml Liq) 650 mg Q6H PRN PO 05/31/17 15:00 (Benadryl Inj) 50 mg Q6H PRN IM 05/31/17 15:00 (Percocet 7.5-325 Mg) 1 tab Q6H PRN PO 05/31/17 15:00 Lactated Ringer's 1,000 ml @ 75 mls/hr [id number] IV 05/31/17 15:00 06/01/17 23:35 (B & O Supp) 60 mg Q6HR PRN RECTAL 05/31/17 15:15 (Dilaudid RECREATION TEACHER Inj) 6 mg UNSCH IV 05/31/17 16:00 05/31/17 17:28 RECREATION TEACHER Dosage Infused (Pha) 1 Q8HR .XX 05/31/17 22:00 06/02/17 06:00 (Narcan Inj) 0.4 mg UNSCH PRN IV PUSH 05/31/17 16:00 Assessment and Plan Assessment and Plan Stable s/p SPP OOB/Ambulate Ween CBI to off Full liquid diet 06/02 Stable POD# 2 s/p SPP OOB/Ambulate Dulcolux supp Continue full liquid diet today Plug SP tube if urine remains clear Juan Patel DO Jun 02, 2017 09:24
[2017-06-02] MEDS ORDERED: BISACODYL 10 MG SUPP RECTAL ONE (09:30)
[2017-06-02 12:00] VITALS: BP 138/66; PULSE 89; RESP 17; TEMP 99.4; O2SAT 96
[2017-06-02] MEDS: LACTATED RINGER'S 1000 ML INJ 1,000 ML IV SCH (12:55)
[2017-06-02 16:00] VITALS: BP 140/59; PULSE 92; RESP 20; TEMP 97.9; O2SAT 97
[2017-06-02 20:18] VITALS: BP 120/58; PULSE 98; RESP 20; TEMP 96.9; O2SAT 98
[2017-06-03 00:24] VITALS: BP 145/73; PULSE 88; RESP 20; TEMP 99; O2SAT 95
[2017-06-03] MEDS: LACTATED RINGER'S 1000 ML INJ 1,000 ML IV SCH (02:15)
[2017-06-03 04:27] VITALS: BP 133/68; PULSE 89; RESP 20; TEMP 99.5; O2SAT 95
[2017-06-03] MEDS: PCA - TOTAL MG DILAUDID DELIVERED PER SHIFT SCH ×3 (05:26→22:00)
[2017-06-03 07:59] LABS: HEMATOCRIT 24.9 % (39.0-51.0); MEAN CELL VOLUME 78.6 FL (80.0-100.0); MEAN CORPUSCULAR HEMOGLOBIN 27.2 PG (27.0-34.0); MEAN CORPUSCULAR HGB CONC 34.6 % (32.0-36.0); PLATELET COUNT 159 TH/MM3 (150-450); RED BLOOD COUNT 3.17 MIL/MM3 (4.50-5.90); RED CELL DISTRIBUTION WIDTH 21.1 % (11.6-17.2); REVIEW FLAG FINAL; WHITE BLOOD COUNT 10.6 TH/MM3 (4.0-11.0)
[2017-06-03 08:00] VITALS: BP 126/66; PULSE 87; RESP 18; TEMP 96.6; O2SAT 95
[2017-06-03 08:28] LABS: BICARBONATE 31.3 MEQ/L (21.0-32.0); POTASSIUM 3.3 MEQ/L (3.5-5.1)
--- NOTE | 2017-06-03 08:49 | HHI.PR ---
Subjective Patient symptoms today Pt seen and examined. Feeling better. Pain controlled. Passing gas. Objective Vital Signs Vital Signs Date Time Temp Pulse Resp B/P (MAP) Pulse Ox O2 Delivery O2 Flow Rate FiO2 06/03/17 05:26 17 06/03/17 04:27 99.5 89 20 133/68 (89) 95 06/03/17 00:24 99.0 88 20 145/73 (97) 95 06/02/17 22:00 18 06/02/17 20:18 96.9 98 20 120/58 (78) 98 06/02/17 16:00 97.9 92 20 140/59 (86) 97 06/02/17 14:00 16 06/02/17 12:00 99.4 89 17 138/66 (90) 96 Intake & Output 06/03/17 06/03/17 07:00 19:00 Intake Total 1680 ml Output Total 4650 ml Balance -2970 ml Intake Oral 680 ml IV Total 1000 ml Output Urine Total 4650 ml # Bowel Movements 0 Result Diagram: 06/03/1772406/03/17724 Objective Remarks CV: RRR Lungs: CTA Abd:soft,nd, incisional tenderness Dressing intact Urine: clear on slow CBI Ext: neg C/C/E 06/02 Abd:soft,distension, incisional tenderness Saxena and SP tube clear Dressing intact Ext: neg C/C/E 06/03 Abd:soft,nt,nd Dressing intact Urine clear Ext: neg C/C/E Medications and IVs Current Medications Medications (Trade) Dose Ordered Sig/Briseyda Route Start Time Stop Time Status Last Admin (Lopressor) 25 mg PHOTOCOMPOSITION KEYBOARD OPERATOR PRN PO 05/31/17 10:30 06/03/17 10:29 (Betadine 5% Antisepsis Kit) 1 applic PHOTOCOMPOSITION KEYBOARD OPERATOR PRN EACH NARE 05/31/17 10:30 06/03/17 10:29 05/31/17 10:32 (Chlorhexidine 2% Cloth) 3 pack PHOTOCOMPOSITION KEYBOARD OPERATOR PRN TOPICAL 05/31/17 10:30 06/03/17 10:29 05/31/17 10:00 (NovoLIN R INJ) See Protocol Table ... PHOTOCOMPOSITION KEYBOARD OPERATOR PRN SQ 05/31/17 10:30 06/03/17 10:29 (Zofran Inj) 4 mg Q6HR PRN IV PUSH 05/31/17 15:00 (Tylenol 650 Mg/ 20 ml Liq) 650 mg Q6H PRN PO 05/31/17 15:00 (Benadryl Inj) 50 mg Q6H PRN IM 05/31/17 15:00 (Percocet 7.5-325 Mg) 1 tab Q6H PRN PO 05/31/17 15:00 Lactated Ringer's 1,000 ml @ 75 mls/hr [id number] IV 05/31/17 15:00 06/03/17 02:15 (B & O Supp) 60 mg Q6HR PRN RECTAL 05/31/17 15:15 (Dilaudid DATA ANALYSIS INTERN Inj) 6 mg UNSCH IV 05/31/17 16:00 05/31/17 17:28 DATA ANALYSIS INTERN Dosage Infused (Pha) 1 Q8HR .XX 05/31/17 22:00 06/03/17 05:26 (Narcan Inj) 0.4 mg UNSCH PRN IV PUSH 05/31/17 16:00 Potassium Chloride 100 ml @ 50 mls/hr Q2H IV 06/03/17 08:45 06/03/17 14:44 UNV Assessment and Plan Assessment and Plan Stable s/p SPP OOB/Ambulate Ween CBI to off Full liquid diet 06/02 Stable POD# 2 s/p SPP OOB/Ambulate Dulcolux supp Continue full liquid diet today Plug SP tube if urine remains clear 06/03 Stable POD#3 s/p SPP OOB Cath plug to SP tube Reg. Diet Juan Patel DO Jun 03, 2017 08:49
[2017-06-03] MEDS: POTASSIUM CHLOR 20 MEQ PREMIX 100 ML IV SCH ×2 (10:24→10:25)
[2017-06-03 12:00] VITALS: BP 138/74; PULSE 97; RESP 20; TEMP 96.9; O2SAT 98
[2017-06-03 16:00] VITALS: BP 172/83; PULSE 88; RESP 19; TEMP 97.5; O2SAT 100
[2017-06-03 20:00] VITALS: BP 127/82; PULSE 84; RESP 18; TEMP 96; O2SAT 98
[2017-06-04] VITALS: BP 132/98; PULSE 89; RESP 18; TEMP 96.7; O2SAT 97
[2017-06-04] MEDS: PCA - TOTAL MG DILAUDID DELIVERED PER SHIFT SCH (06:00)
[2017-06-04 08:00] VITALS: BP 165/74; PULSE 85; RESP 20; TEMP 98.4; O2SAT 96
[2017-06-04] MEDS ORDERED: PNEUMOCOCCAL POLYVALENT INJ 25 MCG/0.5 ML SYR IM ONE (10:00)
[2017-06-04] MEDS ORDERED: INFLUENZA VIRUS VACCINE (QUADRIVALENT) 0.5 ML SYR IM ONE (10:00)
[2017-06-04 10:59] LABS: HEMATOCRIT 26.3 % (39.0-51.0); MEAN CELL VOLUME 79.6 FL (80.0-100.0); MEAN CORPUSCULAR HEMOGLOBIN 26.6 PG (27.0-34.0); MEAN CORPUSCULAR HGB CONC 33.4 % (32.0-36.0); PLATELET COUNT 225 TH/MM3 (150-450); RED BLOOD COUNT 3.31 MIL/MM3 (4.50-5.90); RED CELL DISTRIBUTION WIDTH 21.5 % (11.6-17.2); REVIEW FLAG FINAL
[2017-06-04 11:24] LABS: BICARBONATE 29.4 MEQ/L (21.0-32.0); POTASSIUM 3.6 MEQ/L (3.5-5.1)
--- NOTE | 2017-06-04 11:26 | HHI.PR ---
Subjective Patient symptoms today Pt seen and examined. Feels well. Some constipation noted. Urine blood tinged. Irrigated to clear at bedside. Objective Vital Signs Vital Signs Date Time Temp Pulse Resp B/P (MAP) Pulse Ox O2 Delivery O2 Flow Rate FiO2 06/04/17 08:00 98.4 85 20 165/74 (104) 96 06/04/17 06:00 18 06/04/17 00:00 96.7 89 18 132/98 (109) 97 06/03/17 22:00 18 06/03/17 20:00 96.0 84 18 127/82 (97) 98 06/03/17 16:00 97.5 88 19 172/83 (112) 100 06/03/17 12:00 96.9 97 20 138/74 (95) 98 Intake & Output 06/04/17 06/04/17 07:00 19:00 Intake Total 0.4 ml 120 ml Output Total 3150 ml Balance -3149.6 ml 120 ml Intake Oral 120 ml IV Total 0.4 ml Output Urine Total 3150 ml Result Diagram: 06/04/1791406/04/17914 Objective Remarks CV: RRR Lungs: CTA Abd:soft,nd, incisional tenderness Dressing intact Urine: clear on slow CBI Ext: neg C/C/E 06/02 Abd:soft,distension, incisional tenderness Saxena and SP tube clear Dressing intact Ext: neg C/C/E 06/03 Abd:soft,nt,nd Dressing intact Urine clear Ext: neg C/C/E 06/04 Abd:soft,some distension Wound : clean and dry Ext: neg C/C/E Saxena: urine blood tinged. Medications and IVs Current Medications Medications (Trade) Dose Ordered Sig/Briseyda Route Start Time Stop Time Status Last Admin (Zofran Inj) 4 mg Q6HR PRN IV PUSH 05/31/17 15:00 (Tylenol 650 Mg/ 20 ml Liq) 650 mg Q6H PRN PO 05/31/17 15:00 (Benadryl Inj) 50 mg Q6H PRN IM 05/31/17 15:00 (Percocet 7.5-325 Mg) 1 tab Q6H PRN PO 05/31/17 15:00 (B & O Supp) 60 mg Q6HR PRN RECTAL 05/31/17 15:15 (Dilaudid FERMENTOLOGIST Inj) 6 mg UNSCH IV 05/31/17 16:00 05/31/17 17:28 FERMENTOLOGIST Dosage Infused (Pha) 1 Q8HR .XX 05/31/17 22:00 06/04/17 06:00 (Narcan Inj) 0.4 mg UNSCH PRN IV PUSH 05/31/17 16:00 Assessment and Plan Assessment and Plan Stable s/p SPP OOB/Ambulate Ween CBI to off Full liquid diet 06/02 Stable POD# 2 s/p SPP OOB/Ambulate Dulcolux supp Continue full liquid diet today Plug SP tube if urine remains clear 06/03 Stable POD#3 s/p SPP OOB Cath plug to SP tube Reg. Diet 06/04 Stable POD#4 Lactulose for constipation Replace K OOB/Ambulate Juan Patel DO Jun 04, 2017 11:26
--- NOTE | 2017-06-04 11:34 | HHI.FF ---
Face to Face Verification Diagnosis: (1) BPH (benign prostatic hyperplasia) Physical Therapy Order: Improve ambulation Home Health Nursing Order: Saxena catheter maintenance [employer] Order: To Evaluate: Support services I have seen patient Endy Mcintosh on 06/04/17. My clinical findings support the need for the requested home health care services because: Limited ability to care for self I certify that my clinical findings support that this patient is homebound because: Post-op weakness Juan Patel DO Jun 04, 2017 11:34
[2017-06-04 12:00] VITALS: BP 133/88; PULSE 94; RESP 20; TEMP 96.9; O2SAT 95
[2017-06-04] MEDS ORDERED: LACTULOSE SYRUP 20 GM/30 ML CUP PO ONE (12:00)
[2017-06-04] MEDS: oxyCODONE/ACETAMINOPHEN 7.5 MG/325 MG TAB PO PRN ×2 (12:29→18:22)
[2017-06-04] MEDS: POTASSIUM CHLOR 20 MEQ PREMIX 100 ML IV SCH ×2 (12:35→14:41)
[2017-06-04 16:00] VITALS: BP 144/84; PULSE 82; RESP 20; TEMP 98.7; O2SAT 96
[2017-06-04 20:00] VITALS: BP 133/66; PULSE 65; RESP 16; TEMP 96.1; O2SAT 93
[2017-06-05] VITALS: BP 126/83; PULSE 75; RESP 16; TEMP 96.6; O2SAT 98
--- NOTE | 2017-06-05 07:54 | HHI.PR ---
Subjective Patient symptoms today Pt seen and examined. Urine is starting to clear. Less abdominal distension Objective Vital Signs Vital Signs Date Time Temp Pulse Resp B/P (MAP) Pulse Ox O2 Delivery O2 Flow Rate FiO2 06/05/17 00:00 96.6 75 16 126/83 (97) 98 06/04/17 20:00 96.1 65 16 133/66 (88) 93 06/04/17 16:00 98.7 82 20 144/84 (104) 96 06/04/17 12:00 96.9 94 20 133/88 (103) 95 06/04/17 08:00 98.4 85 20 165/74 (104) 96 Intake & Output 06/05/17 06/05/17 07:00 19:00 Output Total 2000 ml Balance -2000 ml Output Urine Total 2000 ml Result Diagram: 06/04/1791406/04/17914 Objective Remarks CV: RRR Lungs: CTA Abd:soft,nd, incisional tenderness Dressing intact Urine: clear on slow CBI Ext: neg C/C/E 06/02 Abd:soft,distension, incisional tenderness Saxena and SP tube clear Dressing intact Ext: neg C/C/E 06/03 Abd:soft,nt,nd Dressing intact Urine clear Ext: neg C/C/E 06/04 Abd:soft,some distension Wound : clean and dry Ext: neg C/C/E Saxena: urine blood tinged. 06/05 Abd:soft,nt, decreased distension Urine: clear Ext: neg C/C/E Medications and IVs Current Medications Medications (Trade) Dose Ordered Sig/Briseyda Route Start Time Stop Time Status Last Admin (Zofran Inj) 4 mg Q6HR PRN IV PUSH 05/31/17 15:00 (Tylenol 650 Mg/ 20 ml Liq) 650 mg Q6H PRN PO 05/31/17 15:00 (Benadryl Inj) 50 mg Q6H PRN IM 05/31/17 15:00 (Percocet 7.5-325 Mg) 1 tab Q6H PRN PO 05/31/17 15:00 06/04/17 18:22 (B & O Supp) 60 mg Q6HR PRN RECTAL 05/31/17 15:15 Assessment and Plan Assessment and Plan Stable s/p SPP OOB/Ambulate Ween CBI to off Full liquid diet 06/02 Stable POD# 2 s/p SPP OOB/Ambulate Dulcolux supp Continue full liquid diet today Plug SP tube if urine remains clear 06/03 Stable POD#3 s/p SPP OOB Cath plug to SP tube Reg. Diet 06/04 Stable POD#4 Lactulose for constipation Replace K OOB/Ambulate 06/05 Stable POD#5 OOB For D/C home in AM Possible VT in AM if urine remains clear. Juan Patel DO Jun 05, 2017 07:54
[2017-06-05 08:00] VITALS: BP 134/79; PULSE 79; RESP 19; TEMP 97.1; O2SAT 98
[2017-06-05 12:00] VITALS: BP 121/81; PULSE 80; RESP 19; TEMP 96; O2SAT 97
[2017-06-05 12:12] LABS: POTASSIUM 3.7 MEQ/L (3.5-5.1)
[2017-06-05] MEDS: oxyCODONE/ACETAMINOPHEN 7.5 MG/325 MG TAB PO PRN (12:55)
[2017-06-05 16:00] VITALS: BP 116/62; PULSE 97; RESP 16; TEMP 97.5; O2SAT 97
[2017-06-05 20:35] VITALS: BP 109/66; PULSE 80; RESP 20; TEMP 97.3; O2SAT 98
[2017-06-06 00:32] VITALS: BP 137/67; PULSE 75; RESP 20; TEMP 97.7; O2SAT 97
[2017-06-06 08:00] VITALS: BP 145/73; PULSE 79; RESP 16; TEMP 98.1; O2SAT 98
[2017-06-06 12:00] VITALS: BP 142/81; PULSE 80; RESP 18; TEMP 97.9; O2SAT 97
--- NOTE | 2017-06-06 12:02 | HHI.PR ---
Subjective Patient symptoms today Pt seen and examined. Feels well. Urine clear. Saxena removed at bedside. Objective Vital Signs Vital Signs Date Time Temp Pulse Resp B/P (MAP) Pulse Ox O2 Delivery O2 Flow Rate FiO2 06/06/17 08:00 98.1 79 16 145/73 (97) 98 06/06/17 00:32 97.7 75 20 137/67 (90) 97 06/05/17 20:35 97.3 80 20 109/66 (80) 98 06/05/17 16:00 97.5 97 16 116/62 (80) 97 Intake & Output 06/06/17 06/06/17 07:00 19:00 Intake Total 580 ml Output Total 2050 ml Balance -1470 ml Intake Oral 580 ml Output Urine Total 2050 ml # Bowel Movements 0 Result Diagram: 06/04/17 0915 06/05/17 1120 Objective Remarks CV: RRR Lungs: CTA Abd:soft,nd, incisional tenderness Dressing intact Urine: clear on slow CBI Ext: neg C/C/E 06/02 Abd:soft,distension, incisional tenderness Saxena and SP tube clear Dressing intact Ext: neg C/C/E 06/03 Abd:soft,nt,nd Dressing intact Urine clear Ext: neg C/C/E 06/04 Abd:soft,some distension Wound : clean and dry Ext: neg C/C/E Saxena: urine blood tinged. 06/05 Abd:soft,nt, decreased distension Urine: clear Ext: neg C/C/E 06/06 Abd:soft, nt,nd Wound: clear and dry. Saxena removed. Medications and IVs Current Medications Medications (Trade) Dose Ordered Sig/Briseyda Route Start Time Stop Time Status Last Admin (Zofran Inj) 4 mg Q6HR PRN IV PUSH 05/31/17 15:00 (Tylenol 650 Mg/ 20 ml Liq) 650 mg Q6H PRN PO 05/31/17 15:00 (Benadryl Inj) 50 mg Q6H PRN IM 05/31/17 15:00 (Percocet 7.5-325 Mg) 1 tab Q6H PRN PO 05/31/17 15:00 06/05/17 12:55 (B & O Supp) 60 mg Q6HR PRN RECTAL 05/31/17 15:15 Assessment and Plan Assessment and Plan Stable s/p SPP OOB/Ambulate Ween CBI to off Full liquid diet 06/02 Stable POD# 2 s/p SPP OOB/Ambulate Dulcolux supp Continue full liquid diet today Plug SP tube if urine remains clear 06/03 Stable POD#3 s/p SPP OOB Cath plug to SP tube Reg. Diet 06/04 Stable POD#4 Lactulose for constipation Replace K OOB/Ambulate 06/05 Stable POD#5 OOB For D/C home in AM Possible VT in AM if urine remains clear. 06/06 Stable POD#6 Void trial today OOB/Ambulate Possible d/c home in AM Juan Patel DO Jun 06, 2017 12:02
[2017-06-06 16:00] VITALS: BP 160/67; PULSE 82; RESP 18; TEMP 97.2; O2SAT 99
[2017-06-06 20:00] VITALS: BP 157/76; PULSE 81; RESP 20; TEMP 96.8; O2SAT 100
[2017-06-07 00:38] VITALS: BP 147/67; PULSE 72; RESP 20; TEMP 98.3; O2SAT 97
[2017-06-07 08:00] VITALS: BP 145/64; PULSE 85; RESP 18; TEMP 96.8; O2SAT 100
--- NOTE | 2017-06-07 09:01 | HHI.PR ---
Subjective Patient symptoms today Pt seen and examined. Voiding small amounts with incontinence at times. Objective Vital Signs Vital Signs Date Time Temp Pulse Resp B/P (MAP) Pulse Ox O2 Delivery O2 Flow Rate FiO2 06/07/17 08:00 96.8 85 18 145/64 (91) 100 06/07/17 00:38 98.3 72 20 147/67 (93) 97 06/06/17 20:00 96.8 81 20 157/76 (103) 100 06/06/17 16:00 97.2 82 18 160/67 (98) 99 06/06/17 12:00 97.9 80 18 142/81 (101) 97 Intake & Output 06/07/17 06/07/17 07:00 19:00 Intake Total 580 ml Output Total 100 ml Balance 480 ml Intake Oral 580 ml Output Urine Total 100 ml # Voids 3 # Bowel Movements 3 Result Diagram: 06/04/17 0915 06/05/17 1120 Objective Remarks CV: RRR Lungs: CTA Abd:soft,nd, incisional tenderness Dressing intact Urine: clear on slow CBI Ext: neg C/C/E 06/02 Abd:soft,distension, incisional tenderness Saxena and SP tube clear Dressing intact Ext: neg C/C/E 06/03 Abd:soft,nt,nd Dressing intact Urine clear Ext: neg C/C/E 06/04 Abd:soft,some distension Wound : clean and dry Ext: neg C/C/E Saxena: urine blood tinged. 06/05 Abd:soft,nt, decreased distension Urine: clear Ext: neg C/C/E 06/06 Abd:soft, nt,nd Wound: clear and dry. Saxena removed. 06/07 Abd:soft,nt,nd Wound: clean and dry Medications and IVs Current Medications Medications (Trade) Dose Ordered Sig/Briseyda Route Start Time Stop Time Status Last Admin (Zofran Inj) 4 mg Q6HR PRN IV PUSH 05/31/17 15:00 (Tylenol 650 Mg/ 20 ml Liq) 650 mg Q6H PRN PO 05/31/17 15:00 (Benadryl Inj) 50 mg Q6H PRN IM 05/31/17 15:00 (Percocet 7.5-325 Mg) 1 tab Q6H PRN PO 05/31/17 15:00 06/05/17 12:55 (B & O Supp) 60 mg Q6HR PRN RECTAL 05/31/17 15:15 Assessment and Plan Assessment and Plan Stable s/p SPP OOB/Ambulate Ween CBI to off Full liquid diet 06/02 Stable POD# 2 s/p SPP OOB/Ambulate Dulcolux supp Continue full liquid diet today Plug SP tube if urine remains clear 06/03 Stable POD#3 s/p SPP OOB Cath plug to SP tube Reg. Diet 06/04 Stable POD#4 Lactulose for constipation Replace K OOB/Ambulate 06/05 Stable POD#5 OOB For D/C home in AM Possible VT in AM if urine remains clear. 06/06 Stable POD#6 Void trial today OOB/Ambulate Possible d/c home in AM 06/07 Stable POD#7 D/C home today Juan Patel DO Jun 07, 2017 09:01
[2017-06-07] MEDS: oxyCODONE/ACETAMINOPHEN 7.5 MG/325 MG TAB PO PRN (09:09)
[2017-06-07] MEDS ORDERED: CIPR500T2 PO (11:09)
== END 2017-06-07 12:41 | disposition home or self-care (01) | DRG 707 ==
LOC: HSDI 09:03 → N07A 17:24
PROVIDERS: ADMIT Urology; ATTEND Urology
PROC: 30233N1 Transfusion of Nonautologous Red Blood Cells into Peripheral Vein, Percutaneous Approach (ICD-10-PCS; 2017-05-31)
PROC: 0VT00ZZ Resection of Prostate, Open Approach (ICD-10-PCS; principal; 2017-05-31 11:06)
DX: N40.1 Benign prostatic hyperplasia with lower urinary tract symptoms (principal); N13.8 Other obstructive and reflux uropathy; R31.0 Gross hematuria; K59.00 Constipation, unspecified; R32 Unspecified urinary incontinence
CPT/HCPCS: 36430; 76937; 80048; 82805; 84153; 84155; 85014; 85018; 85025; 85027; 85610; 85730; 86850; 86900; 86901; 86920; 88307; 94150; C1769; J0131; J0690; J1170; J1580; J2270; J3480; J7120; P9016

== ENCOUNTER 2017-06-21 21:26 | Emergency (ER) | payer MEDICARE ==
[~2017-06-21] VITALS: Ht 172.7 cm; Wt 115.0 kg
[~2017-06-21 21:26] MED LIST changes: +CIPR500T2 PO; -FERR325T18 PO; -GABA300C5 PO; -SENN1TAB PO
[2017-06-21 21:28] VITALS: BP 191/93; PULSE 112; RESP 17; TEMP 98.6; O2SAT 98
--- NOTE | 2017-06-21 22:02 | PD ---
HPI Chief Complaint: Abdominal Pain Time Seen by Provider: 21:37 Travel History International Travel<30 days: No Contact w/Intl Traveler<30days: No Traveled to known affect area: No History of Present Illness HPI 57 year old male patient presents emergency department for evaluation of lower abdominal pain that started this afternoon. 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 Patel at our facility on May 31, 2017. He was evaluated by Dr. Patel this morning and the suprapubic catheter was removed. Patient reports being able urinate a small amount of urine post-suprapubic catheter removal. The last time he was able to urinate was approximately 1800 this evening. Patient denies any dysuria , mild hematuria. He is unable to urinate at this time. Patient report the patient is sharp and intermittent in nature. The patient describes it at coming in waves. The patient denies any fevers, chills or malaise. The patient reports being pain free until this evening. Patient is on Cipro 500mg BID with two doses left. Patient denies any nausea, vomiting or diarrhea. Patient states his last BM was this afternoon and was normal. Patient denies any alcohol, smoking or drug use. PFSH Past Medical History Arthritis: No Asthma: No Autoimmune Disease: No Anxiety: No Depression: No Heart Rhythm Problems: No Cancer: No Cardiovascular Problems: No High Cholesterol: No Chemotherapy: No Chest Pain: No Congestive Heart Failure: No COPD: No Cerebrovascular Accident: No Diabetes: No Diminished Hearing: No Endocrine: No Gastrointestinal Disorders: No GERD: No Genitourinary: Yes Hiatal Hernia: No Hypertension: Yes Immune Disorder: No Inguinal Hernia: Yes (REPAIRED) Implanted Vascular Access Dvce: Yes Kidney Stones: No Medical other: Yes (enlarged prostate) Musculoskeletal: No Neurologic: No Psychiatric: No Reproductive: No Respiratory: No Migraines: No Radiation Therapy: No Renal Failure: No Seizures: No Sickle Cell Disease: No Sleep Apnea: No Thyroid Disease: No Ulcer: No Tetanus Vaccination: < 5 Years Influenza Vaccination: Yes Past Surgical History Abdominal Surgery: No AICD: No Arteriovenous Shunt: No Body Medical Devices: CERVICAL PINS PLACED Cardiac Surgery: No Ear Surgery: No Endocrine Surgery: No Eye Surgery: No Genitourinary Surgery: Yes (suprapubic cath, prostate removal) Gynecologic Surgery: No Insulin Pump: No Joint Replacement: No Neurologic Surgery: Yes (SURGERY ON HIS NECK) Oral Surgery: No Pacemaker: No Thoracic Surgery: No Other Surgery: Yes (groin hernia repair) Social History Alcohol Use: Yes Tobacco Use: No Substance Use: No Allergies-Medications (Allergen,Severity, Reaction): Coded Allergies: No Known Allergies (Verified Allergy, Unknown, 06/21/17) Reported Meds & Prescriptions Reported Meds & Active Scripts Active Reported Ciprofloxacin (Ciprofloxacin HCl) 500 Mg Tab 500 Mg PO BID Review of Systems Except as stated in HPI: all other systems reviewed are Neg Gastrointestinal: Positive: Abdominal Pain Physical Exam Narrative GENERAL: 57 year old SKIN: Well approximated 6cm incision open to air, healing appropriately noted to the lower abdomen between the symphysis pubis and umbilicus. Small 1 cm opening with no erythema or purulent drainage noted to the right lateral aspect of the incision where the suprapubic catheter was removed this morning. HEAD: Atraumatic. Normocephalic. EYES: Pupils equal and round. No scleral icterus. No injection or drainage. ENT: No nasal bleeding or discharge. Mucous membranes pink and moist. NECK: Trachea midline. No JVD. CARDIOVASCULAR: Regular rate and rhythm. No murmur appreciated. RESPIRATORY: No accessory muscle use. Clear to auscultation. Breath sounds equal bilaterally. GASTROINTESTINAL: Upper abdomen soft, non-tender, nondistended. Bladder margin palpated. Tenderness with palpation. Hepatic and splenic margins not palpable. MUSCULOSKELETAL: No obvious deformities. No clubbing. No cyanosis. No edema. NEUROLOGICAL: Awake and alert. No obvious cranial nerve deficits. Motor grossly within normal limits. Normal speech. PSYCHIATRIC: Appropriate mood and affect; insight and judgment normal. Data Data Last Documented VS Vital Signs Date Time Temp Pulse Resp B/P (MAP) Pulse Ox O2 Delivery O2 Flow Rate FiO2 06/21/17 21:28 98.6 112 17 191/93 (125) 98 Orders Orders Complete Blood Count With Diff (06/21/17 21:50) Comprehensive Metabolic Panel (06/21/17 21:50) Urinalysis - C+S If Indicated (06/21/17 21:50) Iv Access Insert/Monitor (06/21/17 21:50) Ecg Monitoring (06/21/17 21:50) Electrocardiogram (06/21/17 21:50) Tray, Coude Saxena 16fr (06/21/17 22:41) Urinary Catheter Management MATTHIEU.Q8H (06/21/17 22:41) Morphine Inj (Morphine Inj) (06/21/17 23:00) Ondansetron Inj (Zofran Inj) (06/21/17 23:00) Labs Laboratory Tests Test 06/21/17 20:11 White Blood Count 16.9 TH/MM3 Red Blood Count 4.36 MIL/MM3 Hemoglobin 10.4 GM/DL Hematocrit 33.0 % Mean Corpuscular Volume 75.6 FL Mean Corpuscular Hemoglobin 23.9 PG Mean Corpuscular Hemoglobin Concent 31.6 % Red Cell Distribution Width 20.7 % Platelet Count 314 TH/MM3 Mean Platelet Volume 7.9 FL Neutrophils (%) (Auto) 83.5 % Lymphocytes (%) (Auto) 10.1 % Monocytes (%) (Auto) 4.9 % Eosinophils (%) (Auto) 0.7 % Basophils (%) (Auto) 0.8 % Neutrophils # (Auto) 14.1 TH/MM3 Lymphocytes # (Auto) 1.7 TH/MM3 Monocytes # (Auto) 0.8 TH/MM3 Eosinophils # (Auto) 0.1 TH/MM3 Basophils # (Auto) 0.1 TH/MM3 CBC Comment AUTO DIFF Blood Urea Nitrogen 12 MG/DL Creatinine 1.59 MG/DL Random Glucose 122 MG/DL Total Protein 7.9 GM/DL Albumin 3.2 GM/DL Calcium Level 8.7 MG/DL Alkaline Phosphatase 73 U/L Aspartate Amino Transf (AST/SGOT) 28 U/L Alanine Aminotransferase (ALT/SGPT) 17 U/L Total Bilirubin 0.6 MG/DL Sodium Level 138 MEQ/L Potassium Level 3.8 MEQ/L Chloride Level 104 MEQ/L Carbon Dioxide Level 22.3 MEQ/L Anion Gap 12 MEQ/L Estimat Glomerular Filtration Rate 54 ML/MIN [facility] [place] Medical Decision Making Medical Screen Exam Complete: Yes Emergency Medical Condition: Yes Medical Record Reviewed: Yes Differential Diagnosis Differential diagnoses include but are not limited to urinary retention, UTI, bladder obstruction, nephrolithiasis, abdominal pain Narrative Course Patient placed on monitor, IV obtained and blood were sent to lab. CBC, CMP, UA ordered and pending. EKG ordered and pending. Dr. Patel, urologist the performed total prostatectomy called. Bladder scan resulted or 425 mL of urine in bladder. Patient unable to void at this time and is in moderate amount of pain that becomes more severe in waves. 4mg IV morphine and 4mg Zofran ordered. Dr. Patel returned call and recommended a 16 [place] coud Saxena catheter to be placed and patient to be discharged home with instructions to follow-up with him next week. Nurses attempted to place a 16 [place] coud Saxena and were unsuccessful. Dr Patel called back and he recommended to place a standard 16 [place] Saxena catheter. CBC shows leukocytosis with WBC 16.9., Hemoglobin 10.4. CBC shows elevated creatinine at 1.59 and GRF 54 Nurses are attempting to place the Saxena at this time. UA pending Saxena placement. Dr Avelar assumes care for this patient. Please see her documentation for further details. Diagnosis Primary Impression: Urine retention Referrals: Juan Patel DO Patient Instructions: Saxena Catheter Placement and Care (ED), General Instructions Additional Instructions: Please return to emergency department if your symptoms return or worsen. Follow up with Dr. Patel next week. Continue to take Cipro as prescribed. Stay hydrated, get enough rest, diet as tolerated. Saxena catheter in place until Dr. Patel follow-up. Disposition: 01 DISCHARGE HOME Condition: Stable Andressa Stoll CHANDRIKA Jun 21, 2017 22:02
[2017-06-21 22:26] LABS: AUTOMATED NEUTROPHIL # 14.1 TH/MM3 (1.8-7.7); BASOPHIL # 0.1 TH/MM3 (0-0.2); BASOPHIL % 0.8 % (0.0-2.0); EOSINOPHIL # 0.1 TH/MM3 (0-0.4); EOSINOPHIL % 0.7 % (0.0-4.0); HEMOGLOBIN 10.4 GM/DL (13.0-17.0); LYMPH % 10.1 % (9.0-44.0); LYMPHOCYTE # 1.7 TH/MM3 (1.0-4.8); MEAN CELL VOLUME 75.6 FL (80.0-100.0); MEAN CORPUSCULAR HEMOGLOBIN 23.9 PG (27.0-34.0); MEAN CORPUSCULAR HGB CONC 31.6 % (32.0-36.0); MEAN PLATELET VOLUME 7.9 FL (7.0-11.0); MONO % 4.9 % (0.0-8.0); MONOCYTE # 0.8 TH/MM3 (0-0.9); NEUT % 83.5 % (16.0-70.0); PLATELET COUNT 314 TH/MM3 (150-450); RED BLOOD COUNT 4.36 MIL/MM3 (4.50-5.90); RED CELL DISTRIBUTION WIDTH 20.7 % (11.6-17.2); WHITE BLOOD COUNT 16.9 TH/MM3 (4.0-11.0)
[2017-06-21 22:46] LABS: ALT (GPT) 17 U/L (12-78)
[2017-06-21 22:48] LABS: ALBUMIN 3.2 GM/DL (3.4-5.0); ALKALINE PHOSPHATASE 73 U/L (45-117); AST (GOT) 28 U/L (15-37); BICARBONATE 22.3 MEQ/L (21.0-32.0); BLOOD UREA NITROGEN 12 MG/DL (7-18); CALCIUM 8.7 MG/DL (8.5-10.1); CHLORIDE 104 MEQ/L (98-107); CREATININE 1.59 MG/DL (0.60-1.30); GLOMERULAR FILTRATION RATE 54 ML/MIN (>89); GLUCOSE,RANDOM 122 MG/DL (74-106); SODIUM (NA) 138 MEQ/L (136-145); TOTAL BILIRUBIN ADULT 0.6 MG/DL (0.2-1.0); TOTAL PROTEIN 7.9 GM/DL (6.4-8.2)
[2017-06-21] MEDS ORDERED: ONDANSETRON HCL 4 MG/2 ML VIAL IV PUSH ONE (23:00)
[2017-06-21] MEDS ORDERED: MORPHINE SULFATE 2 MG/ML INJ IV PUSH ONE (23:00)
[2017-06-21 23:11] LABS: OVALOCYTES 1+ (NORMAL)
--- NOTE | 2017-06-22 00:23 | PD ---
Physical Exam Narrative General: The patient is a well-developed well-nourished male, uncomfortable appearing on examination, holding his lower abdomen. Head and Neck exam: Head is normocephalic atraumatic. Cardiovascular: Regular rate and rhythm without murmurs, gallops, or rubs. Lungs: Clear to auscultation bilaterally. No wheezes, rhonchi, or rales. Abdomen: Soft, with suprapubic prominence on palpation with a stoma in place in the suprapubic area that appears to be patent without any leakage. The patient has tenderness on palpation over his bladder. No guarding, rebound, or rigidity. Normal bowel sounds are audible. No tenderness on palpation of McBurney's point. Extremities: No clubbing, cyanosis, or edema. Neurologic Exam: Grossly nonfocal. Skin Exam: No rash noted. Intact skin that is warm and dry. Data Data Last Documented VS Vital Signs Date Time Temp Pulse Resp B/P (MAP) Pulse Ox O2 Delivery O2 Flow Rate FiO2 06/21/17 21:28 98.6 112 17 191/93 (125) 98 Orders Orders Complete Blood Count With Diff (06/21/17 21:50) Comprehensive Metabolic Panel (06/21/17 21:50) Urinalysis - C+S If Indicated (06/21/17 21:50) Iv Access Insert/Monitor (06/21/17 21:50) Ecg Monitoring (06/21/17 21:50) Electrocardiogram (06/21/17 21:50) Tray, Coude Saxena 16fr (06/21/17 22:41) Urinary Catheter Management MATTHIEU.Q8H (06/21/17 22:41) Morphine Inj (Morphine Inj) (06/21/17 23:00) Ondansetron Inj (Zofran Inj) (06/21/17 23:00) Pelvis, Ap Only (Routine) (06/22/17 00:13) Urine Culture (06/22/17 00:30) Ed Discharge Order (06/22/17 01:36) Labs Laboratory Tests Test 06/21/17 20:11 06/22/17 00:30 White Blood Count 16.9 TH/MM3 Red Blood Count 4.36 MIL/MM3 Hemoglobin 10.4 GM/DL Hematocrit 33.0 % Mean Corpuscular Volume 75.6 FL Mean Corpuscular Hemoglobin 23.9 PG Mean Corpuscular Hemoglobin Concent 31.6 % Red Cell Distribution Width 20.7 % Platelet Count 314 TH/MM3 Mean Platelet Volume 7.9 FL Neutrophils (%) (Auto) 83.5 % Lymphocytes (%) (Auto) 10.1 % Monocytes (%) (Auto) 4.9 % Eosinophils (%) (Auto) 0.7 % Basophils (%) (Auto) 0.8 % Neutrophils # (Auto) 14.1 TH/MM3 Lymphocytes # (Auto) 1.7 TH/MM3 Monocytes # (Auto) 0.8 TH/MM3 Eosinophils # (Auto) 0.1 TH/MM3 Basophils # (Auto) 0.1 TH/MM3 CBC Comment AUTO DIFF Differential Comment AUTO DIFF CONFIRMED Platelet Estimate NORMAL Platelet Morphology Comment CLUMPED Ovalocytes 1+ Blood Urea Nitrogen 12 MG/DL Creatinine 1.59 MG/DL Random Glucose 122 MG/DL Total Protein 7.9 GM/DL Albumin 3.2 GM/DL Calcium Level 8.7 MG/DL Alkaline Phosphatase 73 U/L Aspartate Amino Transf (AST/SGOT) 28 U/L Alanine Aminotransferase (ALT/SGPT) 17 U/L Total Bilirubin 0.6 MG/DL Sodium Level 138 MEQ/L Potassium Level 3.8 MEQ/L Chloride Level 104 MEQ/L Carbon Dioxide Level 22.3 MEQ/L Anion Gap 12 MEQ/L Estimat Glomerular Filtration Rate 54 ML/MIN Urine Color RED Urine Turbidity MARKED Urine pH 7.0 Urine Specific [place] 1.021 Urine Protein GREATER THAN 600 mg/dL Urine Glucose (UA) NEG mg/dL Urine Ketones NEG mg/dL Urine Occult Blood MOD Urine Nitrite NEG Urine Bilirubin NEG Urine Urobilinogen LESS THAN 2.0 MG/DL Urine Leukocyte Esterase TRACE Urine RBC /hpf Urine WBC 161 /hpf Microscopic Urinalysis Comment CULTURE INDICATED MDM Medical Record Reviewed: Yes Supervised Visit with ALESHA: Yes Interpretation(s) Last Impressions Pelvis X-Ray 06/22/17 0013 Signed Impressions: Service Date/Time: Thursday, June 22, 2017 00:19 - CONCLUSION: Suprapubic catheter tip is in the bladder. Endy Bradford MD Narrative Course I, Dr. Avelar, have reviewed the advance practice practitioner's documentation and am in agreement, met with the patient face to face, made the diagnosis, and the medical decision making was done by me. The patient was initially evaluated by Andressa, the nurse practitioner. Please see their complete history and physical. *My assessment and Findings: The patient presents with a history of difficulty urinating that began this evening. The patient is status post prostatectomy for prostate hypertrophy done on May 31. He was seen by Dr. Patel in the office postop earlier today. The patient had a suprapubic catheter in place, however he had been urinating regularly through his urethra, therefore this is discontinued this morning around 10:00 in the morning. He reports that he was able to urinate some after that, however over the last few hours he has not been able to urinate at all and has suprapubic pressure/pain. A call was placed out to Dr. Patel by Andressa regarding this patient's case. She also had IV access obtained and blood work was sent for analysis. He recommended that a size 16 Colombian coud catheter be placed into the patient's urethra. During the course of the patients emergency department visit, the patients history, examination, and differential diagnosis were reviewed with the patient. The patient was placed on a monitor technician with oximetry and frequent blood pressure monitoring. The patient had IV access obtained and blood work sent for analysis. The patient was initially provided morphine for pain, Zofran for nausea. Attempts were made at placement of the coud catheter, however resistance was met. Again Andressa call Dr. Patel regarding this patient's case. He recommended that a regular size 16 Colombian Saxena catheter be placed through the patient's urethra. As there was significant resistance with the original coud catheter, I reassessed the patient and found that the patient did have a stoma still present where the suprapubic catheter was earlier today. I attempted to place a 14 Colombian coud catheter through the stoma. This seemed to easily go into the patient's bladder. Bloody urine was drained from the patient's bladder and the patient reported feeling improved. A call was placed out to the urologist, Dr. Patel. A spoke to him again at approximately 12:15 AM regarding this patient's case. I explained that his suprapubic catheter was placed, a follow-up x-ray will be done to assess for correct position with contrast. He was agreeable with this plan. He is agreeable with plan to follow the patient up as an outpatient and continue with the suprapubic catheter. The catheter was The patients laboratory studies were reviewed and remarkable for a white count of 16.9, hemoglobin 10.4, platelets 314 with 83.5 neutrophils. The patient's leukocytosis could be related to his progressive pain from inability to urinate. CMP is remarkable for creatinine 1.59, glucose 122, albumin 3.2, urinalysis shows trace leukocyte esterase, innumerable rbc's, culture indicated. The patient recently postop which would explain his urinalysis. He is currently on ciprofloxacin. Radiology studies were reviewed and remarkable for a pelvic x-ray that shows a suprapubic catheter in place without any extravasation of contrast. The patient is resting comfortably and feels better, is alert and in no distress. The patients results and examination findings were discussed with the patient. The repeat examination is unremarkable and benign. The history, exam, diagnostic testing, and current condition do not suggest any significant pathology to warrant further testing, continued ED treatment, admission, or surgical evaluation at this point. The vital signs have been stable. The patient does not have uncontrollable pain, intractable vomiting, or other significant symptoms. The patient's condition is stable and appropriate for discharge. The patient will pursue further outpatient evaluation with a primary care physician or other designated or consulting physician as indicated in the discharge instructions. The patient expressed understanding and was agreeable with this plan. Diagnosis Primary Impression: Urine retention Referrals: Juan Patel DO Patient Instructions: Saxena Catheter Placement and Care (ED), General Instructions, How to Care for Your Suprapubic Catheter (ED) Additional Instruction: Please return to emergency department if your symptoms return or worsen. Follow up with Dr. Patel next week. Continue to take Cipro as prescribed. Stay hydrated, get enough rest, diet as tolerated. Saxena catheter in place until Dr. Patel follow-up. Disposition: 01 DISCHARGE HOME Condition: Stable Nurys Avelar MD Jun 22, 2017 00:23
--- NOTE | 2017-06-22 00:44 | RADRPT ---
EXAM DATE/TIME: 06/22/2017 00:19 [facility] COMPARISON: No previous studies available for comparison. INDICATIONS : Evaluate Suprapubic catheter placement MEDICAL HISTORY : None. SURGICAL HISTORY : Prostatectomy. Inguinal hernia repair. ENCOUNTER: Initial ACUITY: 1 day PAIN SCORE: 6/10 LOCATION: Bilateral pelvis FINDINGS: Suprapubic catheter present. Contrast is seen in the bladder lumen, appears superiorly displaced from prostate enlargement. There appears to be some mild patchy calcification centrally in the prostate. I don't clearly see any contrast leak. CONCLUSION: Suprapubic catheter tip is in the bladder. Endy Bradford MD on June 22, 2017 at 0:40 Board Certified Radiologist. This report was verified electronically.
[2017-06-22 01:02] LABS: BILIRUBIN, URINE NEG (NEG); BLOOD, URINE MOD (NEG); GLUCOSE,URINE NEG (NEG); KETONE, URINE NEG (NEG); NITRITE,URINE NEG (NEG); URINE COLOR RED (YELLW/STRAW); URINE LEUKOCYTE ESTERASE TRACE (NEG)
[2017-06-22 01:45] VITALS: BP 178/82
--- NOTE | 2017-06-23 13:36 | EKG ---
Date Performed: 06/21/2017 Time Performed: 21:59:08 PTAGE: 57 years EKG: SINUS TACHYCARDIA NONSPECIFIC T-WAVE ABNORMALITY ST-T wave abnormality is new from the old tracing ABNORMAL RHYTHM ECG PREVIOUS TRACING : 03/20/2017 20.20 DOCTOR: David Avelar Interpretating Date/Time 06/23/2017 13:35:41
== END 2017-06-22 01:45 | disposition home or self-care (01) ==
LOC: NEPC 21:26
DX: R33.9 Retention of urine, unspecified (principal); D72.829 Elevated white blood cell count, unspecified; I10 Essential (primary) hypertension; N40.0 Benign prostatic hyperplasia without lower urinary tract symptoms; R00.0 Tachycardia, unspecified; R94.31 Abnormal electrocardiogram [ECG] [EKG]; Z79.899 Other long term (current) drug therapy
CPT/HCPCS: 51703; 72170; 80053; 81001; 85025; 87086; 93005; 96374; 96375; 99285; J2270; J2405

== ENCOUNTER → 2017-07-04 | Day surgery (SDC) | payer MEDICARE ==
[~2017-07-04] VITALS: Ht 167.6 cm; Wt 115.0 kg
[~2017-07-04] MED LIST changes: +AMPICILLIN 1 GM/NS 100 ML IV SCH; +BELLADONNA ALKALOIDS/OPIUM 60 MG SUPP RECTAL ONE; +BELLADONNA ALKALOIDS/OPIUM 60 MG SUPP RECTAL SCH; +CHLORHEXIDINE GLUCONATE 2 % 1 PACK (2 CLOTHS) TOPICAL PRN; -CIPR500T2 PO; +DEXAMETHASONE SOD PHOS 4 MG/ML VIAL IV ONE; +DO NOT ADM ANY ANTICOAGULANT DRUGS PRN; +GENTAMICIN INJ 240 MG in SODIUM CHLORIDE 0.9% INJ 100 ML IV SCH; +GLYCOPYRROLATE 1 MG/5 ML SYRINGE IV PUSH ONE; +INSULIN HUMAN REGULAR 1,000 UNITS/10 ML VIAL SQ PRN; +LACTATED RINGER'S 1000 ML IV PRN; +LIDOCAINE HCL 1% PF 5 ML SYRINGE OTHER ONE; +METOPROLOL TARTRATE 25 MG TAB PO PRN; +MORPHINE SULFATE 2 MG/ML INJ IV PRN; +NEOSTIGMINE 5 MG/5 ML SYRINGE IV PUSH ONE; +ONDANSETRON HCL 4 MG/2 ML VIAL IV PRN; +ONDANSETRON HCL 4 MG/2 ML VIAL IV PUSH ONE; +PHENYLEPH/NS 1000 MCG/10 ML SYR IV ONE; +POVIDONE IODINE 5% (ANTISEPSIS KIT) 4 APPLICATIONS EACH NARE PRN; +PROPOFOL 200 MG/20 ML AMP IV ONE; +ROCURONIUM INJ 50 MG/5 ML SYRINGE IV PUSH ONE; +SODIUM CHLORID 0.9% 500 ML IV PRN; +oxyCODONE/ACETAMINOPHEN 5 MG/325 MG TAB PO PRN
--- NOTE | 2017-07-04 13:37 | PD.OP ---
Operative Report Date of Surgery: Jul 04, 2017 Preoperative Diagnosis: Bladder neck contracture post suprapubic prostatectomy Postoperative Diagnosis: Same Procedure: Antegrade cystoscopy with retrograde direct visual internal urethrotomy; urethral dilatation with Saxena catheter and suprapubic catheter placement Anesthesia: YANETA Surgeon: Juan Patel Forest Fire Officer(s): None Resident Surgeon: None Operation and Findings: 57-year-old male who underwent suprapubic prostatectomy on 06/03/2017. Postoperatively he developed urinary retention requiring replacement of the suprapubic catheter in the emergency room approximately 2 weeks ago. The suprapubic catheter was changed in clinic earlier this week and upsides to a 20 Nauruan. For approximately 2 weeks he's been able to void through his penis. He underwent cystoscopy in the office demonstrating closure of his bladder neck. Decision made to bring the patient to the operating room to undergo antegrade and retrograde cystoscopy with possible laser versus direct visual internal urethrotomy. Risk and benefits were discussed preoperatively and he is willing to proceed. The patient was brought to the operating room and identified by myself as Endy Mcintosh. He was placed in the dorsal lithotomy position, prepped and draped in usual sterile fashion, received preprocedure antibiotics general endotracheal tube anesthesia was administered. The flexible cystoscope was inserted into the suprapubic site after the suprapubic tube was removed. In the area of the prosthetic fossa upon entering the prostate urethra the bladder neck was closed entirely. Leaving the flexible scope in position and using a urethrotome, the urethrotome was then advanced through the penis into the urethra. The light of the flexible cystoscope was visualized and using the cold knife, an incision was made in the direction of the light. Once this was completed, a wire was passed through the flexible cystoscope in antegrade fashion. The wire then passed out through the penis. Leaving the wire in place, urethral dilatation was then performed using the Microvasive ureteral dilators. This was done up to a 16 Nauruan. The flexible cystoscope was then passed through the penis over the wire and through the area of the urethra that was incised. The bladder was visualized and showed no abnormalities. A 22 [place] tip catheter was then inserted over the wire through the penis and the balloon was filled with 20 cc. Flexible cystoscopy through the suprapubic tube was then performed demonstrating that the Saxena catheter was in good position. A 20 Nauruan suprapubic tube catheter was then inserted through the suprapubic site and the catheter was plugged. 10 cc were left in the balloon. The patient tolerated the procedure well and was extubated and transferred to recovery stable condition. The patient will follow -up in a month and the Saxena catheter will then be removed and he will undergo void trial. We will leave the suprapubic tube in place at that time to allow the patient to void on his own without difficulty. After a week for suprapubic tube catheter will then be removed. Juan Patel DO Jul 04, 2017 13:37
[2017-07-04 14:55] VITALS: BP 101/63; PULSE 80; RESP 20; TEMP 97.9; O2SAT 95
== END | disposition home or self-care (01) ==
LOC: HSDC 09:25
PROVIDERS: ATTEND Urology
DX: N32.0 Bladder-neck obstruction (principal); R33.9 Retention of urine, unspecified; Z98.890 Other specified postprocedural states
CPT/HCPCS: 00910; 52276; C1769; J1100; J2370; J2405; J2710; J3010; J7120

== ENCOUNTER 2017-07-16 05:34 | Inpatient (IN) | payer MEDICARE ==
[2017-07-16] VITALS (8 sets, daily range): BP systolic 118–148; BP diastolic 57–88; PULSE 75–97; RESP 18–26; TEMP 97.3–102.1; O2SAT 94–99
[~2017-07-16] VITALS: Ht 172.7 cm; Wt 93.8 kg
--- NOTE | 2017-07-16 05:58 | PD ---
HPI Chief Complaint: Pain: Acute or Chronic Time Seen by Provider: 05:57 Travel History International Travel<30 days: No Contact w/Intl Traveler<30days: No Traveled to known affect area: No History of Present Illness HPI 57-year-old male came to the emergency room brought by his with history of left upper and lower extremity weakness and pain. The has been giving most of the history and says that the weakness has started about 1-2 weeks ago. Before that he was able to ambulate with a walker or some assistance. However for past 3-4 days he has been complaining of left upper and lower extremity pain. Patient appeared to be in distress and upon asking says everything on his left side started from his shoulder up to his toes hurt. said that he had a suprapubic catheter put in and prostate surgery done about a month ago by Dr. Patel. He has been making urine good. Patient also had a cervical spine surgery done about a year ago. Patient's rectal temperature was 102.5. He was otherwise hemodynamically stable. FOR[facility]LY [facility], [facility] Past Medical History Narrative Medical List of his past medical, surgical, social and family history is reviewed from the nursing note. Arthritis: No Asthma: No Autoimmune Disease: No Anxiety: No Depression: No Heart Rhythm Problems: No Cancer: No Cardiovascular Problems: No High Cholesterol: No Chemotherapy: No Chest Pain: No Congestive Heart Failure: No COPD: No Cerebrovascular Accident: No Diabetes: No Diminished Hearing: No Endocrine: No Gastrointestinal Disorders: No GERD: No Genitourinary: Yes Hiatal Hernia: No Hypertension: Yes Immune Disorder: No Inguinal Hernia: Yes (REPAIRED) Implanted Vascular Access Dvce: Yes Kidney Stones: No Musculoskeletal: No Neurologic: No Psychiatric: No Reproductive: No Respiratory: No Migraines: No Radiation Therapy: No Renal Failure: No Seizures: No Sickle Cell Disease: No Sleep Apnea: No Thyroid Disease: No Ulcer: No Tetanus Vaccination: Unknown Influenza Vaccination: Yes Past Surgical History Abdominal Surgery: No AICD: No Arteriovenous Shunt: No Body Medical Devices: CERVICAL PINS PLACED Cardiac Surgery: No Ear Surgery: No Endocrine Surgery: No Eye Surgery: No Genitourinary Surgery: Yes (suprapubic cath, prostate removal) Gynecologic Surgery: No Insulin Pump: No Joint Replacement: No Neurologic Surgery: Yes (SURGERY ON HIS NECK) Oral Surgery: No Pacemaker: No Thoracic Surgery: No Other Surgery: Yes (groin hernia repair) Social History Alcohol Use: No Tobacco Use: No Substance Use: No Allergies-Medications (Allergen,Severity, Reaction): Coded Allergies: No Known Allergies (Verified Allergy, Unknown, 07/16/17) Comments No known drug allergies. Reported Meds & Prescriptions Reported Meds & Active Scripts Active No Active Prescriptions or Reported Medications Narrative Medication List of his home medications reviewed from the nursing note. Review of Systems Except as stated in HPI: all other systems reviewed are Neg Musculoskeletal: Positive: Pain Neurologic: Positive: Weakness Physical Exam Narrative GENERAL: Awake, confused, moderate to significant history SKIN: Focused skin assessment warm/dry. HEAD: Atraumatic. Normocephalic. EYES: Pupils equal and round. No scleral icterus. No injection or drainage. Ptosis of his left eyelid ENT: No nasal bleeding or discharge. Dry lips and mucous membranes NECK: Trachea midline. No JVD. CARDIOVASCULAR: Regular rate and rhythm. No murmur appreciated. RESPIRATORY: No accessory muscle use. Clear to auscultation. Breath sounds equal bilaterally. GASTROINTESTINAL: Abdomen soft, non-tender, nondistended. Hepatic and splenic margins not palpable. MUSCULOSKELETAL: No obvious deformities. No clubbing. No cyanosis. No edema. NEUROLOGICAL: Confused, GCS of 14. No obvious cranial nerve deficits. Left- sided hemiparesis with speech that's mostly nasal. Patient has left sided ptosis. PSYCHIATRIC: Appropriate mood and affect; insight and judgment normal. Data Data Last Documented VS Vital Signs Date Time Temp Pulse Resp B/P (MAP) Pulse Ox O2 Delivery O2 Flow Rate FiO2 07/16/17 08:32 75 26 118/57 (77) 94 Room Air 07/16/17 06:23 102.1 Orders Orders Sepsis Workup Initiated (07/16/17 ) Complete Blood Count With Diff (07/16/17 06:03) Comprehensive Metabolic Panel (07/16/17 06:03) Lactic Acid Sepsis Protocol (07/16/17 06:03) Urinalysis - C+S If Indicated (07/16/17 06:03) Blood Culture (07/16/17 06:03) Chest, Single Ap (07/16/17 06:03) Blood Glucose (07/16/17 06:03) Ecg Monitoring (07/16/17 06:03) Iv Access Insert/Monitor (07/16/17 06:03) Oximetry (07/16/17 06:03) Oxygen Administration (07/16/17 06:03) Sodium Chlor 0.9% 1000 Ml Inj (Ns 1000 M (07/16/17 06:15) Mri C Spine W&W/O Contrast (07/16/17 ) Ct Brain W/O Iv Contrast(Rout) (07/16/17 ) Mri Brain W&W/O Contrast (07/16/17 ) Westergren Sedimentation Rate (07/16/17 06:03) C-Reactive Protein (Crp) (07/16/17 06:03) Acetaminophen (Tylenol) (07/16/17 06:15) Piperacil-Tazo 4.5 Gm Premix (Zosyn 4.5 (07/16/17 07:30) Urine Culture (07/16/17 06:45) Vancomycin Inj (Vancomycin Inj) (07/16/17 07:30) Mri L Spine W&W/O Contrast (07/16/17 ) Mri T Spine W & W/O Contrast (07/16/17 ) Potassium Chloride Inj (Kcl Inj)... (07/16/17 08:00) Admit Order (Ed Use Only) (07/16/17 ) Paleobotanist / Telemetry MATTHIEU.Q8H (07/16/17 08:50) Vital Signs (Adult) Q4H (07/16/17 08:50) Labs Laboratory Tests Test 07/16/17 06:20 07/16/17 06:45 White Blood Count 23.2 TH/MM3 Red Blood Count 4.03 MIL/MM3 Hemoglobin 8.9 GM/DL Hematocrit 27.8 % Mean Corpuscular Volume 69.0 FL Mean Corpuscular Hemoglobin 22.2 PG Mean Corpuscular Hemoglobin Concent 32.2 % Red Cell Distribution Width 23.8 % Platelet Count 531 TH/MM3 Mean Platelet Volume 7.5 FL Neutrophils (%) (Auto) 83.7 % Lymphocytes (%) (Auto) 10.6 % Monocytes (%) (Auto) 5.4 % Eosinophils (%) (Auto) 0.1 % Basophils (%) (Auto) 0.2 % Neutrophils # (Auto) 19.4 TH/MM3 Lymphocytes # (Auto) 2.5 TH/MM3 Monocytes # (Auto) 1.3 TH/MM3 Eosinophils # (Auto) 0.0 TH/MM3 Basophils # (Auto) 0.1 TH/MM3 CBC Comment DIFF FINAL Differential Comment Erythrocyte Sedimentation Rate GREATER THAN 140 mm/hr Blood Urea Nitrogen 16 MG/DL Creatinine 1.18 MG/DL Random Glucose 131 MG/DL Total Protein 8.2 GM/DL Albumin 1.9 GM/DL Calcium Level 8.2 MG/DL Alkaline Phosphatase 137 U/L Aspartate Amino Transf (AST/SGOT) 55 U/L Alanine Aminotransferase (ALT/SGPT) 45 U/L Total Bilirubin 0.7 MG/DL Sodium Level 135 MEQ/L Potassium Level 2.8 MEQ/L Chloride Level 100 MEQ/L Carbon Dioxide Level 26.6 MEQ/L Anion Gap 8 MEQ/L Estimat Glomerular Filtration Rate 77 ML/MIN Lactic Acid Level 1.8 mmol/L C-Reactive Protein 37.80 MG/DL Urine Color YELLOW Urine Turbidity HAZY Urine pH 6.0 Urine Specific [place] 1.025 Urine Protein 30 mg/dL Urine Glucose (UA) NEG mg/dL Urine Ketones NEG mg/dL Urine Occult Blood MOD Urine Nitrite NEG Urine Bilirubin NEG Urine Urobilinogen 4.0 MG/DL Urine Leukocyte Esterase LARGE Urine RBC 45 /hpf Urine WBC 98 /hpf Urine WBC Clumps RARE Urine Squamous Epithelial Cells <1 /hpf Urine Amorphous Sediment RARE Urine Bacteria RARE /hpf Urine Granular Casts 4 /lpf Urine Mucus MANY /lpf Microscopic Urinalysis Comment CATH-CULTURE IND Urine Opiates Screen NEG Urine Barbiturates Screen NEG Urine Amphetamines Screen NEG Urine Benzodiazepines Screen NEG Urine Cocaine Screen NEG Urine Cannabinoids Screen NEG MDM Medical Decision Making Medical Screen Exam Complete: Yes Emergency Medical Condition: Yes Medical Record Reviewed: Yes Differential Diagnosis Syringomyelia, cervical spine epidural abscess, sepsis, intracranial mass, UTI, pancoast tumor, Torrey's syndrome Narrative Course 7:36 AM CBC suggestive of significant leukocytosis with a left shift. Chemistry lactic acid is pending. Patient was given a liter of IV fluid bolus and Tylenol for the fever. I have ordered Zosyn and vancomycin for this patient as well. Case was signed over to the oncoming ER physician. CT head is negative for any acute issues. There is an MRI of the brain and C-spine pending. Chest x-ray showed a large left apical mass which is new as per the radiologist. 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 Critical Care Narrative Aggregate critical care time was 30 minutes. Time to perform other separately billable procedures was not included in the critical care time. My time did not include minutes spent treating any other patients simultaneously or on activities that did not directly contribute to the patient's treatment. The services I provided to this patient were to treat and/or prevent clinically significant deterioration that could result in: Sepsis protocol I provided critical care services requiring my management, as noted below: Chart data review, documentation time, medication orders and management, vital sign assessments/reviewing monitor data, ordering and reviewing lab tests, ordering and interpreting/reviewing x-rays and diagnostic studies, care of the patient and discussion of the patient with the admitting physicians. Procedures EKG Prior to Arrival: No Scripts No Active Prescriptions or Reported Meds David Rader MD Jul 16, 2017 05:57
[2017-07-16] MEDS ORDERED: SODIUM CHLOR 0.9% 1000 ML INJ 1,000 ML IV ONE (06:15)
[2017-07-16] MEDS ORDERED: ACETAMINOPHEN 325 MG TAB PO ONE (06:15)
--- NOTE | 2017-07-16 06:46 | RADRPT ---
EXAM DATE/TIME: 07/16/2017 06:15 [facility] COMPARISON: CHEST SINGLE AP, July 28, 2015, 6:44. INDICATIONS : Pain left chest and entire left side of the body for one week, short of breath MEDICAL HISTORY : Hypertension. spinal stenosis, hernia SURGICAL HISTORY : cervical laminectomy, hernia repair ENCOUNTER: Initial ACUITY: 1 week PAIN SCORE: Non-responsive. LOCATION: Left chest FINDINGS: Examination is abnormal demonstrating a masslike density at the left apex measuring 5 cm. This is a new finding compared to prior chest x-ray July 2015. The right lung is clear. Both hemidiaphrag ms are well delineated. The heart is upper limits normal size. Surgical hardware in the lower cervi brayden region. CONCLUSION: 5 cm masslike opacity at the left apex is a new finding since 2015. Recommend further characterizati on with contrast enhanced CT thorax. Jorge Young MD on July 16, 2017 at 6:43 Board Certified Radiologist. This report was verified electronically.
[2017-07-16 07:11] LABS: AUTOMATED NEUTROPHIL # 19.4 TH/MM3 (1.8-7.7); BASOPHIL # 0.1 TH/MM3 (0-0.2); BASOPHIL % 0.2 % (0.0-2.0); EOSINOPHIL % 0.1 % (0.0-4.0); HEMATOCRIT 27.8 % (39.0-51.0); HEMOGLOBIN 8.9 GM/DL (13.0-17.0); LYMPH % 10.6 % (9.0-44.0); LYMPHOCYTE # 2.5 TH/MM3 (1.0-4.8); MEAN CORPUSCULAR HEMOGLOBIN 22.2 PG (27.0-34.0); MEAN CORPUSCULAR HGB CONC 32.2 % (32.0-36.0); MEAN PLATELET VOLUME 7.5 FL (7.0-11.0); MONO % 5.4 % (0.0-8.0); MONOCYTE # 1.3 TH/MM3 (0-0.9); NEUT % 83.7 % (16.0-70.0); PLATELET COUNT 531 TH/MM3 (150-450); RED BLOOD COUNT 4.03 MIL/MM3 (4.50-5.90); RED CELL DISTRIBUTION WIDTH 23.8 % (11.6-17.2); WHITE BLOOD COUNT 23.2 TH/MM3 (4.0-11.0)
--- NOTE | 2017-07-16 07:21 | RADRPT ---
EXAM DATE/TIME: 07/16/2017 07:04 [facility] COMPARISON: CT BRAIN W/O CONTRAST, October 17, 2016, 19:21. INDICATIONS : Headache,weakness for 5 days RADIATION DOSE: 41.83 CTDIvol (mGy) MEDICAL HISTORY : Hypertension. SURGICAL HISTORY : Inguinal hernia repair. ENCOUNTER: Initial ACUITY: 4 - 6 days PAIN SCALE: 10/10 LOCATION: cranial TECHNIQUE: Multiple contiguous axial images were obtained of the head. Using automated exposure control and adj ustment of the mA and/or kV according to patient size, radiation dose was kept as low as reasonably a chievable to obtain optimal diagnostic quality images. DICOM format image data is available electro nically for review and comparison. FINDINGS: There is no evidence for intracranial hemorrhage, mass effect, mass lesions, edema, or extra-axial fl uid collections. The visualized bony structures appear intact. The ventricles are normal size for t he patient's age. There are no signs of acute infarction for technique. CONCLUSION: Unremarkable study. Sree Lind MD on July 16, 2017 at 7:19 Board Certified Radiologist. This report was verified electronically.
[2017-07-16 07:23] LABS: AMORPHOUS SEDIMENT, URINE RARE; BACTERIA, URINE RARE /hpf; BILIRUBIN, URINE NEG (NEG); BLOOD, URINE MOD (NEG); GLUCOSE,URINE NEG (NEG); KETONE, URINE NEG (NEG); MUCUS URINE MANY /lpf (OCC); NITRITE,URINE NEG (NEG); SQUAMOUS EPITHELIAL CELL URINE <1 /hpf (0-5); URINE COLOR YELLOW (YELLW/STRAW); URINE LEUKOCYTE ESTERASE LARGE (NEG); WHITE BLOOD CELL CLUMPS RARE
[2017-07-16 07:25] LABS: ALBUMIN 1.9 GM/DL (3.4-5.0); ALT (GPT) 45 U/L (12-78); AST (GOT) 55 U/L (15-37); BICARBONATE 26.6 MEQ/L (21.0-32.0); BLOOD UREA NITROGEN 16 MG/DL (7-18); CALCIUM 8.2 MG/DL (8.5-10.1); CHLORIDE 100 MEQ/L (98-107); CREATININE 1.18 MG/DL (0.60-1.30); GLOMERULAR FILTRATION RATE 77 ML/MIN (>89); GLUCOSE,RANDOM 131 MG/DL (74-106); SODIUM (NA) 135 MEQ/L (136-145)
[2017-07-16] MEDS ORDERED: PIPERACIL-TAZO 4.5 GM PREMIX 100 ML IV ONE (07:30)
[2017-07-16] MEDS ORDERED: VANCOMYCIN 1,000 MG/NS 250 ML IV ONE ×2 (07:30)
[2017-07-16] MEDS ORDERED: VANCOMYCIN 1 GM/200 ML INJ 200 ML IV ONE (07:30)
[2017-07-16 07:39] LABS: ALKALINE PHOSPHATASE 137 U/L (45-117); TOTAL BILIRUBIN ADULT 0.7 MG/DL (0.2-1.0); TOTAL PROTEIN 8.2 GM/DL (6.4-8.2)
[2017-07-16] MEDS ORDERED: POTASSIUM CHLORIDE INJ 20 MEQ, MAGNESIUM SULFATE INJ 2 GM in SODIUM CHLOR 0.9% 1000 ML ... IV ONE (08:00)
--- NOTE | 2017-07-16 08:17 | PD ---
Data Data Last Documented VS Vital Signs Date Time Temp Pulse Resp B/P (MAP) Pulse Ox O2 Delivery O2 Flow Rate FiO2 07/16/17 08:32 75 26 118/57 (77) 94 Room Air 07/16/17 06:23 102.1 Orders Orders Sepsis Workup Initiated (07/16/17 ) Complete Blood Count With Diff (07/16/17 06:03) Comprehensive Metabolic Panel (07/16/17 06:03) Lactic Acid Sepsis Protocol (07/16/17 06:03) Urinalysis - C+S If Indicated (07/16/17 06:03) Blood Culture (07/16/17 06:03) Chest, Single Ap (07/16/17 06:03) Blood Glucose (07/16/17 06:03) Ecg Monitoring (07/16/17 06:03) Iv Access Insert/Monitor (07/16/17 06:03) Oximetry (07/16/17 06:03) Oxygen Administration (07/16/17 06:03) Sodium Chlor 0.9% 1000 Ml Inj (Ns 1000 M (07/16/17 06:15) Mri C Spine W&W/O Contrast (07/16/17 ) Ct Brain W/O Iv Contrast(Rout) (07/16/17 ) Mri Brain W&W/O Contrast (07/16/17 ) Westergren Sedimentation Rate (07/16/17 06:03) C-Reactive Protein (Crp) (07/16/17 06:03) Acetaminophen (Tylenol) (07/16/17 06:15) Piperacil-Tazo 4.5 Gm Premix (Zosyn 4.5 (07/16/17 07:30) Urine Culture (07/16/17 06:45) Vancomycin Inj (Vancomycin Inj) (07/16/17 07:30) Mri L Spine W&W/O Contrast (07/16/17 ) Mri T Spine W & W/O Contrast (07/16/17 ) Potassium Chloride Inj (Kcl Inj)... (07/16/17 08:00) Admit Order (Ed Use Only) (07/16/17 ) Clinical Biostatistics Director / Telemetry [id number].[id number] (07/16/17 08:50) Vital Signs (Adult) Q4H (07/16/17 08:50) Activity Bed Rest (07/16/17 08:50) Labs Laboratory Tests Test 07/16/17 06:20 07/16/17 06:45 White Blood Count 23.2 TH/MM3 Red Blood Count 4.03 MIL/MM3 Hemoglobin 8.9 GM/DL Hematocrit 27.8 % Mean Corpuscular Volume 69.0 FL Mean Corpuscular Hemoglobin 22.2 PG Mean Corpuscular Hemoglobin Concent 32.2 % Red Cell Distribution Width 23.8 % Platelet Count 531 TH/MM3 Mean Platelet Volume 7.5 FL Neutrophils (%) (Auto) 83.7 % Lymphocytes (%) (Auto) 10.6 % Monocytes (%) (Auto) 5.4 % Eosinophils (%) (Auto) 0.1 % Basophils (%) (Auto) 0.2 % Neutrophils # (Auto) 19.4 TH/MM3 Lymphocytes # (Auto) 2.5 TH/MM3 Monocytes # (Auto) 1.3 TH/MM3 Eosinophils # (Auto) 0.0 TH/MM3 Basophils # (Auto) 0.1 TH/MM3 CBC Comment DIFF FINAL Differential Comment Erythrocyte Sedimentation Rate GREATER THAN 140 mm/hr Blood Urea Nitrogen 16 MG/DL Creatinine 1.18 MG/DL Random Glucose 131 MG/DL Total Protein 8.2 GM/DL Albumin 1.9 GM/DL Calcium Level 8.2 MG/DL Alkaline Phosphatase 137 U/L Aspartate Amino Transf (AST/SGOT) 55 U/L Alanine Aminotransferase (ALT/SGPT) 45 U/L Total Bilirubin 0.7 MG/DL Sodium Level 135 MEQ/L Potassium Level 2.8 MEQ/L Chloride Level 100 MEQ/L Carbon Dioxide Level 26.6 MEQ/L Anion Gap 8 MEQ/L Estimat Glomerular Filtration Rate 77 ML/MIN Lactic Acid Level 1.8 mmol/L C-Reactive Protein 37.80 MG/DL Urine Color YELLOW Urine Turbidity HAZY Urine pH 6.0 Urine Specific [place] 1.025 Urine Protein 30 mg/dL Urine Glucose (UA) NEG mg/dL Urine Ketones NEG mg/dL Urine Occult Blood MOD Urine Nitrite NEG Urine Bilirubin NEG Urine Urobilinogen 4.0 MG/DL Urine Leukocyte Esterase LARGE Urine RBC 45 /hpf Urine WBC 98 /hpf Urine WBC Clumps RARE Urine Squamous Epithelial Cells <1 /hpf Urine Amorphous Sediment RARE Urine Bacteria RARE /hpf Urine Granular Casts 4 /lpf Urine Mucus MANY /lpf Microscopic Urinalysis Comment CATH-CULTURE IND MDM Medical Record Reviewed: Yes Supervised Visit with ALESHA: No Narrative Course Please refer to the outgoing provider's note. The patient arrives with fever and a workup revealing a left apex 5 cm masslike opacity coupled with left upper and lower extremity weakness. About 10 days prior the patient underwent integrated flexible cystoscopy and arrives with a suprapubic Saxena catheter as well as a urethral Saxena catheter. The site of insertion for both appear clean. Urinalysis reveals leukocytes and clumps of WBCs w negative nitrite. The ESR and CRP are markedly elevated. MR imaging of the brain and cervical, thoracic and lumbar spine ordered. Zosyn and vancomycin started. Blood culture sent. The patient will be admitted for IV antibiotics and for further diagnostic evaluation. I reassessed the patient at 8:05 AM and he was resting comfortably with a heart rate of about 80 and a blood pressure about 140/80. The patient was able to speak full sentences at that time. He appeared quite dry with dry mucous membranes. Patient will be admitted to the resident service. d/w Dr Jones Diagnosis Primary Impression: Weakness Additional Impressions: Fever Qualified Codes: R50.9 - Fever, unspecified Lung mass Hypokalemia UTI (urinary tract infection) Qualified Codes: T83.511S - Infection and inflammatory reaction due to indwelling urethral catheter, sequela; N39.0 - Urinary tract infection, site not specified Hypoalbuminemia Admitting Information Admitting Physician Requests: Admit Scripts No Active Prescriptions or Reported Meds Disposition: 01 DISCHARGE HOME Condition: Stable Randy Figueroa MD Jul 16, 2017 08:17
--- NOTE | 2017-07-16 08:30 | HHI.HP ---
[facility] Service Family Medicine Primary Care Physician Phil Polanco DO Admission Diagnosis Diagnoses: International Travel<30 Days: No Contact w/Intl Traveler<30days: No Known Affected Area: No History of Present Illness Patient is 57-year-old M with PMHx BPH and s/p prostatectomy (on 05/2017) presented to the ED with 2 wks of progressive worsening left side pain and weakness associated with GAINES. Pt follows with urologist Dr. Patel, who completed the surgery. Pt's sister was at bedside provided entire history. Pt had suprapubic catheter placed in May. After prostatectomy pt was unable to void and received 2nd (07/01/2017) surgery for placement of urethral catheter. At that time supra pubic catheter was capped. Sister states Left sided weakness started after 2nd surgery. They reported the sxs to urologist and he was given pain medication which has not helped. Of note patient has a nurse that visits once a week to check vital signs. No sick contacts. At base line ambulates with walker at a slow gait. Now pt can barely move Left leg and has not been walking at all. He has bee using wheelchair. Review of Systems Constitutional: COMPLAINS OF: Chills, DENIES: Fever, Weight loss, Dizziness, Night Sweats Endocrine: DENIES: Heat/cold intolerance Eyes: DENIES: Vision loss Ears, nose, mouth, throat: COMPLAINS OF: Throat pain, Hoarseness (last) Respiratory: COMPLAINS OF: Cough (dry), DENIES: Sputum production, Shortness of breath Cardiovascular: DENIES: Chest pain, Syncope (no falls) Gastrointestinal: COMPLAINS OF: Abdominal pain, Constipation (Last BM yesterday ), DENIES: Bloody stools, Diarrhea, Nausea, Vomiting Musculoskeletal: COMPLAINS OF: Back pain, DENIES: Neck pain Integumentary: COMPLAINS OF: Rash (abrasion on gluteal area, last wk) Hematologic/lymphatic: DENIES: Bruising Neurologic: COMPLAINS OF: Headache, Localized weakness, Paresthesias ( neuropathy), Speech Problems (stutter), Poor Balance, DENIES: Seizures Past Family Social History Past Medical History BPH neuropathy Past Surgical History cervical spine fusion-- after a fall in 2002 lower spinal fusion 2 yrs ago prostatectomy, May 2017 Allergies: Coded Allergies: No Known Allergies (Verified Allergy, Unknown, 07/16/17) Family History Father- stroke Mother-heart disease, DM Sister-heart attack Social History -lives in home with brother - disable -Denies smoking, alcohol or illicit drug use Physical Exam Vital Signs Vital Signs Date Time Temp Pulse Resp B/P (MAP) Pulse Ox O2 Delivery O2 Flow Rate FiO2 07/16/17 06:29 88 07/16/17 06:23 102.1 86 18 140/79 (99) 98 Room Air 07/16/17 06:23 98 Room Air 07/16/17 05:35 98.6 97 18 132/88 (103) 96 Room Air Physical Exam GENERAL: Patient sleeping in bed, NAD, responsive to questions and following commands SKIN: No rashes, or ecchymoses. Cool and dry. skin abrasion on buttock BL HEAD: Atraumatic. Normocephalic. No temporal or scalp tenderness. EYES: Pupils equal round and reactive. Extraocular motions intact. No scleral icterus. No injection or drainage. ENT: Nose without bleeding, purulent drainage or septal hematoma. Throat without erythema, tonsillar hypertrophy or exudate. Uvula midline. Airway patent. NECK: Trachea midline. No JVD or lymphadenopathy. Supple, nontender, no meningeal signs. CARDIOVASCULAR: Regular rate and rhythm without murmurs, gallops, or rubs. RESPIRATORY: Clear to auscultation. Breath sounds equal bilaterally. No wheezes , rales, or rhonchi. GASTROINTESTINAL: Abdomen soft, non-tender, nondistended. No hepato-splenomegaly , or palpable masses. No guarding. Supra pubic catheter in place (dirty around entry point cleaned by nurse in ED). Pt with urethral bryan in place draining dark yellow urine. MUSCULOSKELETAL: Extremities without clubbing, cyanosis, or edema. No joint tenderness, effusion, or edema noted. No calf tenderness. Negative Homans sign bilaterally. Normal sensation. +2 DP pulses BL. NEUROLOGICAL: sleeping in bed during interview, sister provided history. Cranial nerves II through XII intact.3/5 muscle strength on R Upper Ext. 2/5 on Right LE, 2/5 on L upper ext, 1/5 on Left LE. Normal speech. Laboratory Laboratory Tests Test 07/16/17 06:20 07/16/17 06:45 White Blood Count 23.2 Red Blood Count 4.03 Hemoglobin 8.9 Hematocrit 27.8 Mean Corpuscular Volume 69.0 Mean Corpuscular Hemoglobin 22.2 Mean Corpuscular Hemoglobin Concent 32.2 Red Cell Distribution Width 23.8 Platelet Count 531 Mean Platelet Volume 7.5 Neutrophils (%) (Auto) 83.7 Lymphocytes (%) (Auto) 10.6 Monocytes (%) (Auto) 5.4 Eosinophils (%) (Auto) 0.1 Basophils (%) (Auto) 0.2 Neutrophils # (Auto) 19.4 Lymphocytes # (Auto) 2.5 Monocytes # (Auto) 1.3 Eosinophils # (Auto) 0.0 Basophils # (Auto) 0.1 CBC Comment DIFF FINAL Differential Comment Erythrocyte Sedimentation Rate GREATER THAN 140 Blood Urea Nitrogen 16 Creatinine 1.18 Random Glucose 131 Total Protein 8.2 Albumin 1.9 Calcium Level 8.2 Alkaline Phosphatase 137 Aspartate Amino Transf (AST/SGOT) 55 Alanine Aminotransferase (ALT/SGPT) 45 Total Bilirubin 0.7 Sodium Level 135 Potassium Level 2.8 Chloride Level 100 Carbon Dioxide Level 26.6 Anion Gap 8 Estimat Glomerular Filtration Rate 77 Lactic Acid Level 1.8 C-Reactive Protein 37.80 Urine Color YELLOW Urine Turbidity HAZY Urine pH 6.0 Urine Specific [place] 1.025 Urine Protein 30 Urine Glucose (UA) NEG Urine Ketones NEG Urine Occult Blood MOD Urine Nitrite NEG Urine Bilirubin NEG Urine Urobilinogen 4.0 Urine Leukocyte Esterase LARGE Urine RBC 45 Urine WBC 98 Urine WBC Clumps RARE Urine Squamous Epithelial Cells <1 Urine Amorphous Sediment RARE Urine Bacteria RARE Urine Granular Casts 4 Urine Mucus MANY Microscopic Urinalysis Comment CATH-CULTURE IND Date/Time Source Procedure Growth Status 07/16/17 06:10 Blood Peripheral Aerobic Blood Culture Pending Received 07/16/17 06:10 Blood Peripheral Anaerobic Blood Culture Pending Received 07/16/17 06:45 Urine Catheterized Urine Urine Culture Pending Received Result Diagram: 07/16/17 0620 07/16/17 0620 Imaging Last Impressions Chest X-Ray 07/16/17 0603 Signed Impressions: Service Date/Time: Sunday, July 16, 2017 06:15 - CONCLUSION: 5 cm masslike opacity at the left apex is a new finding since 2016. Recommend further characterization with contrast enhanced CT thorax. Jorge Young MD Thoracic Spine MRI 07/16/17 0000 Signed Impressions: Service Date/Time: Sunday, July 16, 2017 10:42 - CONCLUSION: 1. Multilevel disc spurs at T3-4, T5-T6 scan, most significantly at T9-10. Despite degenerative changes, there is no cord compromise at any thoracic level. No significant change from prior. 2. Possible loculated effusion in the left lung apex. Bonifacio Echeverria MD Lumbar Spine MRI 07/16/17 0000 Signed Impressions: Service Date/Time: Sunday, July 16, 2017 10:42 - CONCLUSION: 1. Stable CT scan of the lumbar spine compared to the prior examination of 07/29/2015. 2. No evidence to suggest discitis or osteomyelitis. 3. There continues to be spinal canal stenosis at L3-4 and L4-5 without significant change compared to the prior study. Fahad Garrido MD Head CT 07/16/17 0000 Signed Impressions: Service Date/Time: Sunday, July 16, 2017 07:04 - CONCLUSION: Unremarkable study. Sree Lind MD Chest CT 07/16/17 0000 Signed Impressions: Service Date/Time: Sunday, July 16, 2017 12:46 - CONCLUSION: 1. Complex loculated 5.9 cm fluid attenuation area at the left lung apex most characteristic of an abscess with extension into the extrathoracic soft tissues superiorly and extending supraclavicular with locules of air present in the supraclavicular region and within the chest lesion. There is a suspected surrounding pneumonia upper left lung. Cannot exclude necrotic neoplasm. This would be amenable to CT-guided aspiration. 2. Mildly enlarged mediastinal and left hilar lymph nodes. 3. Trace left pleural effusion. Ryan Byrnes MD Cervical Spine MRI 07/16/17 0000 Signed Impressions: Service Date/Time: Sunday, July 16, 2017 10:42 - CONCLUSION: 1. Stable overall appearance of the cervical spine compared to the prior examination of 07/28/2015. 2. Specifically, no evidence to suggest discitis or osteomyelitis. Fahad Garrido MD Brain MRI 07/16/17 0000 Signed Impressions: Service Date/Time: Sunday, July 16, 2017 10:42 - CONCLUSION: 1. 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 Vasquez Thayer MD Abdomen/Pelvis CT 07/16/17 0000 Signed Impressions: Service Date/Time: Sunday, July 16, 2017 12:49 - CONCLUSION: 1. Suprapubic catheter present presumably passing into bladder with thickened bladder wall. There is a Bryan catheter present with the balloon in the lower bladder or possibly within the prostatic region. Patient is reportedly status post prostatectomy. 2. Diffuse ileus. Stable renal cysts. 3. Mild inflammatory changes left lung base. MD Nimo [place] VTE Risk Assessment Caprini VTE Risk Assessment: Mod/High Risk (score >= 2) Caprini Risk Assessment Model Point Value = 1 Point Value = 2 Point Value = 3 Point Value = 5 Age 41-60 Minor surgery BMI > 25 kg/m2 Swollen legs Varicose veins or History of unexplained or recurrent spontaneous Oral contraceptives or hormone replacement Sepsis (< 1 month) Serious lung disease, including pneumonia (< 1 month) Abnormal pulmonary function Acute myocardial infarction Congestive heart failure (< 1 month) History of inflammatory bowel disease Medical patient at bed rest Age 61-74 Arthroscopic surgery Major open surgery (> 45 min) Laparoscopic surgery (> 45 min) Malignancy Confined to bed (> 72 hours) Immobilizing plaster cast Central venous access Age >= 75 History of VTE Family history of VTE Factor V Leiden Prothrombin [id number] Lupus anticoagulant Anticardiolipin antibodies Elevated serum homocysteine Heparin-induced thrombocytopenia Other congenital or acquired thrombophilia Stroke (< 1 month) Elective arthroplasty Hip, pelvis, or leg fracture Acute spinal cord injury (< 1 month) Prophylaxis Regimen Total Risk Factor Score Risk Level Prophylaxis Regimen 0-1 Low Early ambulation 2 Moderate Order ONE of the following: *Sequential Compression Device (SCD) *Heparin 5000 units SQ BID 3-4 Higher Order ONE of the following medications: *Heparin 5000 units SQ TID *Enoxaparin/Lovenox 40 mg SQ daily (WT < 150 kg, CrCl > 30 mL/min) *Enoxaparin/Lovenox 30 mg SQ daily (WT < 150 kg, CrCl > 10-29 mL/min) *Enoxaparin/Lovenox 30 mg SQ BID (WT < 150 kg, CrCl > 30 mL/min) AND/OR *Sequential Compression Device (SCD) 5 or more Highest Order ONE of the following medications: *Heparin 5000 units SQ TID (Preferred with Epidurals) *Enoxaparin/Lovenox 40 mg SQ daily (WT < 150 kg, CrCl > 30 mL/min) *Enoxaparin/Lovenox 30 mg SQ daily (WT < 150 kg, CrCl > 10-29 mL/min) *Enoxaparin/Lovenox 30 mg SQ BID (WT < 150 kg, CrCl > 30 mL/min) AND *Sequential Compression Device (SCD) Assessment and Plan Assessment and Plan Patient is 57-year-old M with PMHx BPH and s/p prostatectomy (on 05/2017) presented to the ED with 2 wks of progressive worsening left side pain and weakness associated with GAINES. Urologist Dr. Patel, who completed the surgery. Pt found to have Left apical lung mass on imaging. Code Status full code Discussed Condition With SDW Dr. Robert Rand Problem List: (1) Left-sided weakness ICD Codes: R53.1 - Weakness Plan: -neuro checks Q4h -Bedrest -MRI lumbar spine: no osteomyelitis, spinal canal stenosis at L3-L5, no significant change from prior study -MRI thoracic spine: multilevel disc spurs at T3-4 and T5-T6 and T9-10, no cord compression, no significant change from prior study (2) SIRS (systemic inflammatory response syndrome) ICD Codes: R65.10 - Systemic inflammatory response syndrome (SIRS) of non- infectious origin without acute organ dysfunction Plan: On admission Pt with elevated white count at 23.2, Temp:102.1 -possible source of infection lungs -f/u blood cx -continue to monitor VS (3) Lung mass ICD Codes: R91.8 - Other nonspecific abnormal finding of lung field Status: Acute Plan: -CRX: 5cm masslike opacity at the left apex -f/u CT chest -pulm consulted, recommendation appreciated (4) Elevated LFTs ICD Codes: R79.89 - Other specified abnormal findings of blood chemistry Plan: -f/u CMP -Continue to monitor (5) UTI (urinary tract infection) ICD Codes: N39.0 - Urinary tract infection, site not specified Status: Resolved Plan: -Urethral Bryan in place draining dark yellow urine -Positive UA -f/u Ucx (6) Hypokalemia ICD Codes: E87.6 - Hypokalemia Status: Acute Plan: IV fluids with potassium supplementation Continue to monitor (7) Nutrition, metabolism, and development symptoms ICD Codes: R63.8 - Other symptoms and signs concerning food and fluid intake Plan: Fluids:160 mls/hr Electrolytes: low K, replete as needed Nutrition: NPO except meds DVT ppx: lovenox Physician Certification 2 Midnight Certification Type: Admission for Inpatient Services Order for Inpatient Services The services are ordered in accordance with Medicare regulations or non- Medicare payer requirements, as applicable. In the case of services not specified as inpatient-only, they are appropriately provided as inpatient services in accordance with the 2-midnight benchmark. Estimated LOS (days): 4 days is the estimated time the patient will need to remain in the hospital, assuming treatment plan goals are met and no additional complications. Post-Hospital Plan: Not yet determined Problem Qualifiers (1) UTI (urinary tract infection): Qualified Codes: T83.511S - Infection and inflammatory reaction due to indwelling urethral catheter, sequela; N39.0 - Urinary tract infection, site not specified Sarah Webb MD, R1 Jul 16, 2017 08:30
[2017-07-16] MEDS ORDERED: MAGNESIUM HYDROXIDE SUSP 30 ML CUP PO PRN (09:45)
[2017-07-16] MEDS ORDERED: NALOXONE HCL 0.4 MG/ML AMP IV PUSH PRN ×2 (09:45→19:00)
[2017-07-16] MEDS ORDERED: SENNOSIDES 8.6 MG TAB PO PRN (09:45)
[2017-07-16] MEDS ORDERED: ONDANSETRON HCL 4 MG/2 ML VIAL IVP PRN (09:45)
[2017-07-16] MEDS ORDERED: BISACODYL 10 MG SUPP RECTAL PRN (09:45)
[2017-07-16] MEDS ORDERED: SODIUM CHLORIDE 0.9% FLUSH 10 ML FLUSH IV FLUSH PRN (09:45)
[2017-07-16] MEDS ORDERED: LACTULOSE SYRUP 20 GM/30 ML CUP PO PRN (09:45)
[2017-07-16] MEDS ORDERED: Vancomycin Consult Pharmacy 1 EA OTHER SCH (09:45)
[2017-07-16] MEDS ORDERED: GADODIAMIDE PF 287 MG/ML 5 ML VIAL (for RAD MRI) IVCONTRAST ONE (12:02)
--- NOTE | 2017-07-16 12:59 | RADRPT ---
EXAM DATE/TIME: 07/16/2017 10:42 [facility] COMPARISON: MRI CERVICAL SPINE W & W/O CONTRAST, July 28, 2015, 11:32. INDICATIONS : Osteomyelitis. 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 CONTRAST: 23 cc Omniscan (gadodiamide) IV MEDICAL HISTORY : None. SURGICAL HISTORY : Fusion, cervical. Prostatectomy. Suprapubic catheter. ENCOUNTER: Subsequent ACUITY: 3 day PAIN SCORE: 4/10 LOCATION: neck. TECHNIQUE: Multiplanar, multisequence MRI examination of the cervical spine was performed. FINDINGS: This examination is compared to the prior study of 07/28/2015. Patient is status post anterior cervical fusion from C3-C6. There continues to be good alignment of the cervical spine and fusion compared to the prior study. There continues to be an abnormal appearance of the spinal cord from the top of C3 down to the top of C7. This is stable and unchanged in its overall appearance compared to the prior e xamination. There continues to be broad-based bulging at C2-3 and C6-7. The post contrast images are unremarkable. There is no evidence of any abnormal signal in the vertebral bodies to suggest osteomye litis. No evidence of discitis. Compared to the prior examination there's been no new significant mason nges. CONCLUSION: 1. Stable overall appearance of the cervical spine compared to the prior examination of 07/28/2015. 2. Specifically, no evidence to suggest discitis or osteomyelitis. Fahad Garrido MD on July 16, 2017 at 12:52 Board Certified Radiologist. This report was verified electronically.
--- NOTE | 2017-07-16 13:03 | RADRPT ---
EXAM DATE/TIME: 07/16/2017 10:42 [facility] COMPARISON: MRI LUMBAR SPINE W & W/O CONTRAST, July 29, 2015, 18:30. INDICATIONS : Osteomyelitis. 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 CONTRAST: 23 cc Omniscan (gadodiamide) IV MEDICAL HISTORY : None. SURGICAL HISTORY : Fusion, cervical. Prostatectomy. Suprapubic catheter. ENCOUNTER: Subsequent ACUITY: 3 day PAIN SCORE: 4/10 LOCATION: low back. TECHNIQUE: Multiplanar multisequence MRI of the lumbar spine was performed with and without contrast. FINDINGS: Today's examination is compared to the prior study of 07/29/2015. There continues to be good alignment of the lumbar spine. There is normal signal within the lumbar vertebral bodies. No abnormal bone mark ow edema is demonstrated. No compression fractures are demonstrated. There is no evidence of spondylo listhesis. There is disc dehydration L2-3, L3-4 and L4-5. There continues to be broad-based bulging a t L3-4 and L4-5 causing focal spinal canal stenosis. These findings were present on the prior examina tion and are unchanged in their overall appearance. Postcontrast images are unremarkable. There is no evidence to suggest discitis or osteomyelitis. There is bilateral facet arthritis at multiple levels . This is stable compared to the prior examination. CONCLUSION: 1. Stable CT scan of the lumbar spine compared to the prior examination of 07/29/2015. 2. No evidence to suggest discitis or osteomyelitis. 3. There continues to be spinal canal stenosis at L3-4 and L4-5 without significant change compared t o the prior study. Fahad Garrido MD on July 16, 2017 at 12:56 Board Certified Radiologist. This report was verified electronically.
--- NOTE | 2017-07-16 13:16 | RADRPT ---
EXAM DATE/TIME: 07/16/2017 10:42 [facility] COMPARISON: MRI THORACIC SPINE W & W/O CONTRAST, July 29, 2015, 18:30. INDICATIONS : Osteomyelitis. 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 CONTRAST: 23 cc Omniscan (gadodiamide) IV MEDICAL HISTORY : None. SURGICAL HISTORY : Fusion, cervical. Prostatectomy. Suprapubic catheter. ENCOUNTER: Subsequent ACUITY: 3 day PAIN SCORE: 4/10 LOCATION: mid back. TECHNIQUE: Multiplanar multisequence MRI of the thoracic spine was performed. FINDINGS: Sagittal T1 pre-and postcontrast, T2 and inversion recovery images show degenerative disc disease mos t prominent at T3-4, T5-6 1819 with discs/spurs encroach on the spinal canal. This is most severe at T9-10 where there is moderate spinal stenosis but no obvious cord compromise. Also noted is a fluid c ollection in the left lung apex possibly representing a loculated effusion. . T1-T2: Normal. T2-T3: The thecal sac has a normal diameter. No evidence of disc bulge or protrusion. T3-T4: Right paracentral disc/spur. No cord compromise. T4-T5: The thecal sac has a normal diameter. No evidence of disc bulge or protrusion. T5-T6: Central disc spur. No cord compromise. T6-T7: The thecal sac has a normal diameter. No evidence of disc bulge or protrusion. T7-T8: The thecal sac has a normal diameter. No evidence of disc bulge or protrusion. T8-T9: The thecal sac has a normal diameter. No evidence of disc bulge or protrusion. T9-T10: Prominent central, bilobed disc/spur encroaches on the anterior epidural space and abuts up against t he cord. CSF is preserved posteriorly, however no cord compromise. T10-T11: The thecal sac has a normal diameter. No evidence of disc bulge or protrusion. T11-T12: The thecal sac has a normal diameter. No evidence of disc bulge or protrusion. T12-L1: The thecal sac has a normal diameter. No evidence of disc bulge or protrusion. CONCLUSION: 1. Multilevel disc spurs at T3-4, T5-T6 scan, most significantly at T9-10. Despite degenerative patrick es, there is no cord compromise at any thoracic level. No significant change from prior. 2. Possible loculated effusion in the left lung apex. Bonifacio Echeverria MD on July 16, 2017 at 13:03 Board Certified Radiologist. This report was verified electronically.
[2017-07-16] MEDS ORDERED: IOHEXOL 350 MG/ML 10 ML VIAL (for RAD DIAG) IVCONTRAST ONE (13:27)
--- NOTE | 2017-07-16 13:40 | RADRPT ---
EXAM DATE/TIME: 07/16/2017 10:42 [facility] COMPARISON: No previous studies available for comparison. INDICATIONS : Headache,weakness for 5 days. Left side of body hurts. CONTRAST: 23 cc Omniscan (gadodiamide) IV MEDICAL HISTORY : None. SURGICAL HISTORY : Fusion, cervical. Prostatectomy. Suprapubic catheter. ENCOUNTER: Subsequent ACUITY: 3 day PAIN SCORE: 3/10 LOCATION: head. TECHNIQUE: Multiplanar, multisequence MRI of the brain was performed both prior to and following the administration of paramagnetic contrast. FINDINGS: CEREBRUM: The ventricles are normal for age. No evidence of midline shift, mass lesion, hemorrha ge or acute infarction. No extraaxial fluid collections are seen. The pituitary gland and suprasell ar cistern are normal in configuration. WHITE MATTER: No significant signal abnormalities are seen in the white matter. POSTERIOR FOSSA: The cerebellum and brainstem are intact. The 4th ventricle is midline. The cere bellopontine angle is unremarkable. The cerebellar tonsils are normal in position. DIFFUSION IMAGING: Subcentimeter region of restricted diffusion in the right occipital lobe. A se cond nearly punctate region of restricted diffusion in the right parietal high convexities near the v ertex. EXTRACRANIAL: The visualized portions of the orbits and paranasal sinuses are unremarkable. POST-CONTRAST: Mild enhancement corresponding to the region of restricted diffusion in the right occipital lobe. No abnormal areas of dural enhancement. No evidence of blood-brain barrier breakdown . CONCLUSION: 1. 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 Vasquez Thayer MD on July 16, 2017 at 13:23 Board Certified Radiologist. This report was verified electronically.
--- NOTE | 2017-07-16 13:50 | RADRPT ---
EXAM DATE/TIME: 07/16/2017 12:46 [facility] COMPARISON: No previous studies available for comparison. INDICATIONS : Evaluate for mass. IV CONTRAST: 71 cc Omnipaque 350 (iohexol) IV ; Cumulative dose for multiple exams. RADIATION DOSE: 6.42 CTDIvol (mGy) ; Combined studies - Thorax/Abdomen/Pelvis MEDICAL HISTORY : None SURGICAL HISTORY : Prostatectomy. Inguinal hernia repair. ENCOUNTER: Initial ACUITY: 1 day PAIN SCALE: 0/10 LOCATION: chest TECHNIQUE: Volumetric scanning of the chest was performed. Using automated exposure control and adjustment of t he mA and/or kV according to patient size, radiation dose was kept as low as reasonably achievable to obtain optimal diagnostic quality images. DICOM format image data is available electronically for review and comparison. Follow-up recommendations for detected pulmonary nodules are based at a minimum on nodule size and pa tient risk factors according to Fleischner Society Guidelines. FINDINGS: There is a 5.9 cm fluid attenuation mass of the left lung apex. This extension of fluid and edema in to the extrathoracic region and supraclavicular soft tissues with several locules of air at the left lung apex and within the extrathoracic soft tissues in the supraclavicular region. There is some surr ounding consolidation in the left lung. Findings are most characteristic of infection although a necr otic tumor could give this appearance. This would be easily amenable to aspiration under CT guidance. Lung bases are clear except for minimal dependent atelectasis. There are mildly enlarged mediastinal and left hilar lymph nodes. No acute findings in the upper abdomen. CONCLUSION: 1. Complex loculated 5.9 cm fluid attenuation area at the left lung apex most characteristic of an ab scess with extension into the extrathoracic soft tissues superiorly and extending supraclavicular wit h locules of air present in the supraclavicular region and within the chest lesion. There is a suspec akira surrounding pneumonia upper left lung. Cannot exclude necrotic neoplasm. This would be amenable t o CT-guided aspiration. 2. Mildly enlarged mediastinal and left hilar lymph nodes. 3. Trace left pleural effusion. Ryan Byrnes MD on July 16, 2017 at 13:40 Board Certified Radiologist. This report was verified electronically.
[2017-07-16] MEDS: NS + KCL 20 MEQ INJ 1,000 ML IV SCH ×3 (13:57→21:02)
[2017-07-16] MEDS: PIPERACIL-TAZO 4.5 GM PREMIX 100 ML IV SCH ×2 (13:57→21:03)
[2017-07-16] MEDS: ENOXAPARIN SODIUM 40 MG/0.4 ML SYRINGE SQ SCH (13:57)
--- NOTE | 2017-07-16 15:18 | HHI.FPPN ---
Subjective Remarks Attending medicine note: Patient seen and examined. Complex history with this 57-year-old gentleman who was admitted with progressive pain on the left upper extremity and left lower extremity associated with generalized weakness and fever 102.5. At the time of evaluation the patient is pleasant, it becomes evident that he may be confused and his answers and on questioning he is unable to give orientation except that this is [facility] and his name. She reports that his sister is his spokesperson for history, currently she is not present. Old records were reviewed and pertinent that on 08/03/15 patient underwent a posterior C3 to C7 fusion, C3-7 lateral mass segmental fixation C2, C3, C4, C5, C6, and C7 decompressive laminectomies by Dr.Rohit De Jesus 05/31/17 suprapubic prostatectomy for benign tissue, Dr. Juan Patel 07/04/17 antegrade cystoscopy with retrograde direct visual internal tenotomy, urethral dilatation with Saxena catheter and supra pubic catheter placement Dr. Juan Patel. Please refer to resident history and physical for complete discussion of the past medical history, social history Family history and review of systems. Objective Vitals Vital Signs Date Time Temp Pulse Resp B/P (MAP) Pulse Ox O2 Delivery O2 Flow Rate FiO2 07/16/17 13:45 97.6 81 18 147/63 (91) 98 07/16/17 10:15 (77) 07/16/17 10:00 98.0 76 18 121/62 (81) 99 07/16/17 08:32 75 26 118/57 (77) 94 Room Air 07/16/17 06:29 88 07/16/17 06:23 102.1 86 18 140/79 (99) 98 Room Air 07/16/17 06:23 98 Room Air 07/16/17 05:35 98.6 97 18 132/88 (103) 96 Room Air I/O 07/15/17 07/15/17 07/15/17 07/16/17 07/16/17 07/16/17 07:00 15:00 23:00 07:00 15:00 23:00 Intake Total 1950 ml Balance 1950 ml Intake IV Total 1950 ml Result Diagram: 07/16/17 0620 07/16/17 0620 Objective Remarks Vital signs noted. Temperature 102.1 earlier today. Blood pressure 140/79 pulse 86 respirations 18 Gen. appearance: Older appearing gentleman who is pleasant, makes good eye contact, not oriented except to Bee and name. History not considered reliable. HEENT: Grossly nonlocalizing. Cardiac: S1-S2, distant heart sounds, no definite murmurs. Lungs: Clear breath sounds in the superior physician, decreased breath sounds and dependent position, Abdomen: Slightly protuberant abdomen on appearance, soft, no organomegaly, no tenderness, no masses. Evidence of suprapubic and Saxena catheter Extremities: Feet are warm and dry. Muscular skeletal: Patient relates severe pain on movement of the left shoulder , left elbow, left hip, left knee. Neurologic: Cranial nerves II through XII not grossly localize. Patient's reporting that he cannot move his left arm and left leg, certainly it's minimal to gravity and also expresses severe pain when attempts. A/P Assessment and Plan Clinical assessment: Apparent new onset of left upper and lower extremity weakness and pain, however old records review significant spinal issues and in 2016 had severe spinal stenosis. See surgery notes. Finding of a 5.9 cm loculated mass in the left upper lung fluid accumulation suspect abscess, appears to extend into the extrathoracic spaces in the supraclavicular region possibly affecting left arm pain. Suspected pneumonic process surrounding. Febrile illness probably related to lungs. Anemia hemoglobin 8.9, hematocrit 27.8 MCV 69.0 white blood cell count 23,200 with left shift. Hypokalemia 2.8 Reasonably preserved renal function Abnormal LFTs Suprapubic and Saxena catheter with recent history of bladder neck contracture following suprapubic prostatectomy for benign tissue. Patient seen and examined. Case reviewed and discussed with resident team. Agree with plan of care as discussed with me and documented in the resident note. We'll need to investigate the left upper lobe abnormality, interventional radiology may be able to assist with aspiration/biopsy. Problem List: (1) Left-sided weakness ICD Codes: R53.1 - Weakness (2) SIRS (systemic inflammatory response syndrome) ICD Codes: R65.10 - Systemic inflammatory response syndrome (SIRS) of non- infectious origin without acute organ dysfunction (3) Lung mass ICD Codes: R91.8 - Other nonspecific abnormal finding of lung field Status: Acute (4) Elevated LFTs ICD Codes: R79.89 - Other specified abnormal findings of blood chemistry (5) UTI (urinary tract infection) ICD Codes: N39.0 - Urinary tract infection, site not specified Status: Resolved (6) Hypokalemia ICD Codes: E87.6 - Hypokalemia Status: Acute (7) Neuropathy ICD Codes: G62.9 - Polyneuropathy, unspecified (8) Nutrition, metabolism, and development symptoms ICD Codes: R63.8 - Other symptoms and signs concerning food and fluid intake Problem Qualifiers (1) UTI (urinary tract infection): Qualified Codes: T83.511S - Infection and inflammatory reaction due to indwelling urethral catheter, sequela; N39.0 - Urinary tract infection, site not specified Van Rand MD Jul 16, 2017 15:18
--- NOTE | 2017-07-16 15:33 | RADRPT ---
EXAM DATE/TIME: 07/16/2017 12:49 [facility] COMPARISON: No previous studies available for comparison. INDICATIONS : Abdominal pain. IV CONTRAST: 71 cc Omnipaque 350 (iohexol) IV ; Cumulative dose for multiple exams. ORAL CONTRAST: No oral contrast ingested. RADIATION DOSE: 6.42 CTDIvol (mGy) ; Combined studies - Thorax/Abdomen/Pelvis MEDICAL HISTORY : None SURGICAL HISTORY : Prostatectomy. Inguinal hernia repair. ENCOUNTER: Initial ACUITY: 1 day PAIN SCALE: 5/10 LOCATION: Bilateral Abdomen TECHNIQUE: Volumetric scanning of the abdomen and pelvis was performed. Using automated exposure control and ad justment of the mA and/or kV according to patient size, radiation dose was kept as low as reasonably achievable to obtain optimal diagnostic quality images. DICOM format image data is available electro nically for review and comparison. FINDINGS: Compare March 20. Lung bases demonstrate groundglass opacity left lung base, possibly mild inflam matory change. Mild fatty liver. Spleen, adrenals, kidneys and pancreas demonstrate no acute findings. Renal cysts s imilar to March 20, 2017. There is a diffuse ileus. There is a suprapubic catheter present presumably into the bladder. There i s also a Saxena catheter present in the lower bladder or prostatic region. There is fluid in the rectum. CONCLUSION: 1. Suprapubic catheter present presumably passing into bladder with thickened bladder wall. There is a Saxena catheter present with the balloon in the lower bladder or possibly within the prostatic regio n. Patient is reportedly status post prostatectomy. 2. Diffuse ileus. Stable renal cysts. 3. Mild inflammatory changes left lung base. Ryan Byrnes MD on July 16, 2017 at 15:24 Board Certified Radiologist. This report was verified electronically.
[2017-07-16] MEDS ORDERED: IBUPROFEN 400 MG TAB PO PRN (19:00)
[2017-07-16] MEDS ORDERED: KETOROLAC TROMETHAMINE 30 MG/ML (IVP) VIAL IV PUSH PRN (19:00)
[2017-07-16] MEDS: KETOROLAC TROMETHAMINE 30 MG/ML (IVP) VIAL IV PUSH PRN (19:10)
[2017-07-16] MEDS ORDERED: ACETAMINOPHEN 1000 MG/100 ML 100 ML IV PRN (19:30)
[2017-07-16] MEDS: SODIUM CHLORIDE 0.9% FLUSH 10 ML FLUSH IV FLUSH SCH (21:02)
[2017-07-16] MEDS: VANCOMYCIN INJ 1,750 MG in SODIUM CHLORID 0.9% 500 ML INJ 500 ML IV SCH (21:03)
[2017-07-17] VITALS (7 sets, daily range): BP systolic 106–164; BP diastolic 51–72; PULSE 71–82; RESP 19–20; TEMP 97.3–98.4; O2SAT 95–99
[2017-07-17] MEDS: KETOROLAC TROMETHAMINE 30 MG/ML (IVP) VIAL IV PUSH PRN ×3 (00:36→14:34)
[2017-07-17] MEDS: PIPERACIL-TAZO 4.5 GM PREMIX 100 ML IV SCH ×4 (01:53→20:53)
[2017-07-17] MEDS: NS + KCL 20 MEQ INJ 1,000 ML IV SCH ×5 (06:19→23:15)
[2017-07-17] MEDS ORDERED: SODIUM CHLOR 0.9% 1000 ML INJ 1,000 ML IV SCH (07:15)
[2017-07-17] MEDS: SODIUM CHLORIDE 0.9% FLUSH 10 ML FLUSH IV FLUSH SCH ×2 (07:46→20:21)
[2017-07-17] MEDS: ENOXAPARIN SODIUM 40 MG/0.4 ML SYRINGE SQ SCH (08:07)
[2017-07-17 09:07] LABS: AUTOMATED NEUTROPHIL # 12.7 TH/MM3 (1.8-7.7); BASOPHIL % 0.2 % (0.0-2.0); EOSINOPHIL % 0.2 % (0.0-4.0); HEMATOCRIT 25.2 % (39.0-51.0); HEMOGLOBIN 8.2 GM/DL (13.0-17.0); LYMPH % 15.6 % (9.0-44.0); LYMPHOCYTE # 2.6 TH/MM3 (1.0-4.8); MEAN CELL VOLUME 68.3 FL (80.0-100.0); MEAN CORPUSCULAR HEMOGLOBIN 22.3 PG (27.0-34.0); MEAN CORPUSCULAR HGB CONC 32.7 % (32.0-36.0); MONO % 7.9 % (0.0-8.0); MONOCYTE # 1.3 TH/MM3 (0-0.9); NEUT % 76.1 % (16.0-70.0); PLATELET COUNT 432 TH/MM3 (150-450); RED BLOOD COUNT 3.69 MIL/MM3 (4.50-5.90); WHITE BLOOD COUNT 16.7 TH/MM3 (4.0-11.0)
[2017-07-17] MEDS ORDERED: GADODIAMIDE PF 287 MG/ML 20 ML VIAL (for RAD MRI) IVCONTRAST ONE (09:30)
[2017-07-17 09:33] LABS: ALBUMIN 1.4 GM/DL (3.4-5.0); ALKALINE PHOSPHATASE 113 U/L (45-117); ALT (GPT) 30 U/L (12-78); AST (GOT) 40 U/L (15-37); BICARBONATE 25.1 MEQ/L (21.0-32.0); BLOOD UREA NITROGEN 14 MG/DL (7-18); CALCIUM 7.9 MG/DL (8.5-10.1); CHLORIDE 106 MEQ/L (98-107); CREATININE 0.98 MG/DL (0.60-1.30); GLOMERULAR FILTRATION RATE 95 ML/MIN (>89); GLUCOSE,RANDOM 69 MG/DL (74-106); SODIUM (NA) 140 MEQ/L (136-145); TOTAL BILIRUBIN ADULT 0.6 MG/DL (0.2-1.0); TOTAL PROTEIN 6.7 GM/DL (6.4-8.2)
--- NOTE | 2017-07-17 10:05 | RADRPT ---
EXAM DATE/TIME: 07/17/2017 09:00 [facility] COMPARISON: No previous studies available for comparison. INDICATIONS : Stenosis. CVA. Weakness. CONTRAST: 20 cc Omniscan (gadodiamide) IV MEDICAL HISTORY : None. SURGICAL HISTORY : Fusion, cervical. Prostatectomy. Suprapubic catheter. ENCOUNTER: initial ACUITY: 2 day PAIN SCORE: 0/10 LOCATION: neck. Percent stenosis is calculated using the diameter of the stenotic region over the diameter of the nor mal distal internal carotid artery. TECHNIQUE: Bolus infused MRA of the extracranial circulation was performed using a neurovascular coil. Post pro cessing was performed including rotating subvolume maximum intensity projections of each carotid marci ry, rotating full volume maximum intensity projections of both carotid arteries, sagittal and coronal sliding thin slab reformations of each carotid artery, and left oblique sliding thin slab reformatio n through the aortic arch to include the origin of the arch branch vessels. FINDINGS: AORTIC ARCH: There is a three vessel origin of the great vessels from the aorta. No evidence of ostial narrowing. RIGHT CAROTID: The common carotid artery is intact. The carotid bulb has a normal configuration without ulceration or narrowing. The internal carotid artery lumen is smooth without stenosis. The external carotid ar samira is intact. LEFT CAROTID: The common carotid artery is intact. The carotid bulb has a normal configuration without ulceration or narrowing. The internal carotid artery lumen is smooth without stenosis. The external carotid ar samira is intact. VERTEBRALS: The vertebral arteries have a symmetric diameter. No stenotic lesions are seen. CONCLUSION: 1. Normal carotid arteries. Tahir Miramontes MD on July 17, 2017 at 10:02 Board Certified Radiologist. This report was verified electronically.
--- NOTE | 2017-07-17 10:05 | RADRPT ---
EXAM DATE/TIME: 07/17/2017 09:00 [facility] COMPARISON: MRA BRAIN W/O CONTRAST, July 28, 2015, 11:32. INDICATIONS : CVA. Weakness. MEDICAL HISTORY : None. SURGICAL HISTORY : Fusion, cervical. Prostatectomy. Suprapubic catheter. ENCOUNTER: Subsequent ACUITY: 2 day PAIN SCORE: 0/10 LOCATION: head. Please note a normal MRA of the brain does not entirely exclude the possibility of a small aneurysm, nor the possibility of distal intracranial vessel disease. TECHNIQUE: 3D time of flight MRA was performed. Source images, multiplanar STS MIP, and 3D volume MIP reconstru ctions were reviewed. FINDINGS: There is excellent visualization of the major intracranial arteries out to the second-order branch ve ssels. There is no evidence for aneurysm, vessel truncation or stenosis, and no evidence for vascula r malformation. Anterior communicating artery. Posterior communicating arteries not seen. Vertebrobas ilar junction normal. CONCLUSION: 1. No large vessel aneurysm or stenosis. 2. Normal variants as described above. Tahir Miramontes MD on July 17, 2017 at 10:01 Board Certified Radiologist. This report was verified electronically.
--- NOTE | 2017-07-17 12:33 | ECHRPT ---
Indication: Cerebral Embolism CONCLUSIONS The left ventricular systolic function is low normal with an estimated ejection fraction of 50%. Wall thickness is normal. Normal left ventricular size. There is trace tricuspid valve regurgitation. The estimated pulmonary arterial pressure is 23 mmHg. BP: / HR: 70 Rhythm: Sinus MEASUREMENTS (Male / Female) Normal Values Technical Quality:Good 2D ECHO LV Diastolic Diameter PLAX 4.7 cm 4.2 - 5.9 / 3.9 - 5.3 cm LV Systolic Diameter PLAX 3.7 cm IVS Diastolic Thickness 1.1 cm 0.6 - 1.0 / 0.6 - 0.9 cm LVPW Diastolic Thickness 1.1 cm 0.6 - 1.0 / 0.6 - 0.9 cm LV Relative Wall Thickness 0.5 LVOT Diameter 2.0 cm LA Systolic Diameter LX 3.6 cm 3.0 - 4.0 / 2.7 - 3.8 cm M-MODE Aortic Root Diameter MM 2.6 cm AV Cusp Separation MM 2.0 cm DOPPLER AV Peak Velocity 137.0 cm/s AV Peak Gradient 7.5 mmHg LVOT Peak Velocity 98.7 cm/s LVOT Peak Gradient 3.9 mmHg AV Area Cont Eq pk 2.3 cm MR Peak Velocity 345.0 cm/s MR Peak Gradient 47.6 mmHg Mitral E Point Velocity 116.0 cm/s Mitral A Point Velocity 104.0 cm/s Mitral E to A Ratio 1.1 LV E' Lateral Velocity 9.3 cm/s Mitral E to LV E' Lateral Ratio 12.5 LV E' Septal Velocity 6.0 cm/s Mitral E to LV E' Septal Ratio 19.2 TR Peak Velocity 178.0 cm/s TR Peak Gradient 12.7 mmHg Right Atrial Pressure 10.0 mmHg Pulmonary Artery Systolic Pressu 22.7 mmHg Right Ventricular Systolic Press 22.7 mmHg PV Peak Velocity 107.0 cm/s PV Peak Gradient 4.6 mmHg FINDINGS LEFT VENTRICLE The left ventricular systolic function is low normal with an estimated ejection fraction of 50%. Wall thickness is normal. Normal left ventricular size. RIGHT VENTRICLE Normal right ventricular size and systolic function. LEFT ATRIUM The left atrial size is normal. RIGHT ATRIUM The right atrial size is normal. ATRIAL SEPTUM Normal atrial septal thickness without atrial level shunting by limited color doppler interrogation. AORTA The aortic root and proximal ascending aorta are normal in size on limited imaging. MITRAL VALVE Structurally normal mitral valve. No mitral valve stenosis or regurgitation. AORTIC VALVE Trileaflet aortic valve. No aortic valve stenosis or regurgitation. TRICUSPID VALVE There is trace tricuspid valve regurgitation. The estimated pulmonary arterial pressure is 22.7 mmHg. PULMONARY VALVE No pulmonary valve regurgitation or stenosis. VESSELS The inferior vena cava is normal in size. PERICARDIUM No pericardial effusion. Trevon Cordero MD, FACC (Electronically Signed) Final Date:17 July 2017 12:32
[2017-07-17] MEDS ORDERED: POTASSIUM PHOSPHATE INJ 30 MMOL in SODIUM CHLOR 0.9% 250 ML INJ 250 ML IV ONE (14:00)
[2017-07-17] MEDS: VANCOMYCIN INJ 1,750 MG in SODIUM CHLORID 0.9% 500 ML INJ 500 ML IV SCH (14:01)
--- NOTE | 2017-07-17 15:09 | HHI.FPPN ---
Subjective Remarks Pt seen and examined this morning. No acute events overnight. Pt reports feeling 50% back to normal. He denies chest pain, feeling short of breath, abdominal pain. He reports that at baseline he walks with the assistance of a walker. He is not able to do so at this time as his left upper extremity is stiff. Objective Vitals Vital Signs Date Time Temp Pulse Resp B/P (MAP) Pulse Ox O2 Delivery O2 Flow Rate FiO2 07/17/17 12:11 98.3 82 20 164/70 (101) 98 07/17/17 08:57 98.4 73 20 158/72 (100) 98 07/17/17 07:45 16 07/17/17 06:09 97.3 71 19 136/65 (88) 99 07/17/17 00:00 97.9 81 20 143/63 (89) 95 07/16/17 20:00 97.3 97 18 148/67 (94) 97 07/16/17 17:32 98 21 07/16/17 16:00 97.9 81 18 135/64 (87) 98 I/O 07/16/17 07/16/17 07/16/17 07/17/17 07/17/17 07/17/17 07:00 15:00 23:00 07:00 15:00 23:00 Intake Total 1950 ml 1057 ml 1500 ml Output Total 900 ml Balance 1950 ml 1057 ml 600 ml Intake IV Total 1950 ml 1057 ml 1500 ml Output Urine Total 900 ml # Bowel Movements 1 Result Diagram: 07/17/17 0813 07/17/17 0813 Objective Remarks GENERAL: Well nourished, well developed, responsive to questions and following commands SKIN: . Cool and dry. HEAD: Atraumatic. Normocephalic. EYES: Extraocular motions intact. No scleral icterus. No injection or drainage. ENT: Nose without bleeding, purulent drainage or septal hematoma. Airway patent. NECK: Trachea midline. No JVD or lymphadenopathy. Supple, nontender, no meningeal signs. Pt with scar from prior surgery on posterior neck CARDIOVASCULAR: Regular rate and rhythm without murmurs, gallops, or rubs. RESPIRATORY: Clear to auscultation. Breath sounds equal bilaterally. No wheezes , rales, or rhonchi. GASTROINTESTINAL: Abdomen soft, non-tender, nondistended. Supra pubic catheter in place, draining dark yellow urine. MUSCULOSKELETAL: Extremities without clubbing, cyanosis, or edema. Pt reports left hip pain with knee flection. No joint tenderness, effusion, or edema noted. No calf tenderness. Negative Homans sign bilaterally. Normal sensation. NEUROLOGICAL: Cranial nerves II through XII intact. 5/5 muscle strength on R Upper Ext. 3/5 on Right LE, 4/5 on L upper ext, 2/5 on Left LE. Normal speech. A/P Assessment and Plan Patient is 57-year-old M with PMHx BPH and s/p prostatectomy (on 05/2017) presented to the ED with 2 wks of progressive worsening left side pain and weakness associated with GAINES. Urologist Dr. Patel, who completed the surgery. Pt found to have Left apical lung mass on imaging. Discharge Planning time frame unclear Problem List: (1) Bacteremia due to Gram-positive bacteria ICD Codes: R78.81 - Bacteremia Plan: Blood culture positive for gram-positive cocci in all 4 vials, 1 vial positive for MRSA -Infectious disease consulted, appreciate recommendations -Continue to monitor vitals and labs -Continue IV Vancomycin, pharmacy consulted -Echo negative for endocarditis, Consider ALEX (requires Cardiology consult) if high suspicion. (2) Left-sided weakness ICD Codes: R53.1 - Weakness Plan: Pt reports weakness is improving since admission. -neuro checks Q4h -Out of bed with assistance -PT to evaluate Imaging: -MRI lumbar spine: no osteomyelitis, spinal canal stenosis at L3-L5, no significant change from prior study -MRI thoracic spine: multilevel disc spurs at T3-4 and T5-T6 and T9-10, no cord compression, no significant change from prior study (3) SIRS (systemic inflammatory response syndrome) ICD Codes: R65.10 - Systemic inflammatory response syndrome (SIRS) of non- infectious origin without acute organ dysfunction Plan: On admission Pt with elevated white count at 23.2, Temp:102.1. Lactic acid 1.8. WBC count today -possible source of infection lungs vs cardiac vegetation vs other -See Bacteremia -Continue IV Zosyn 4.5 g Q6hrs -continue to monitor VS (4) Lung mass ICD Codes: R91.8 - Other nonspecific abnormal finding of lung field Status: Acute Plan: Differential diagnosis includes Pneumonia versus cancer versus other infectious process versus others -CT aspiration to be preformed when WBC count is decreased, per CT -pulm consulted, recommendation appreciated Chest CT 07/16/17: Complex loculated 5.9 cm fluid attenuation area at the left lung apex most characteristic of an abscess stanchion into the extrathoracic soft tissues superiorly and extending supraclavicular with locules of air present in the supraclavicular region and within the chest lesion. There is a suspected surrounding pneumonia upper left lung. Cannot exclude necrotic neoplasm. This would be amenable to CT guided aspiration. Mildly enlarged mediastinal and left hilar lymph nodes. Trace left pleural effusion. CRX 07/16: 5cm masslike opacity at the left apex (5) Focal infarction of brain ICD Codes: I63.9 - Cerebral infarction, unspecified Plan: Brain MRI with findings consistent with small focal infarcts, likely embolic in the right occipital lobe and right parietal high convexities near the vertex. Based on patient history, likely have been present for 2 weeks+ -Head CT within normal limits -Head MRI within normal limits -Neck MRA normal -PT and OT consulted -Continue statin -Monitor vitals, keep BP controlled (6) Hypokalemia ICD Codes: E87.6 - Hypokalemia Status: Acute Plan: IV fluids with potassium supplementation -Pt given potassium phosphate [id number] -Will check magnesium and phosphorus -Continue to monitor (7) UTI (urinary tract infection) ICD Codes: N39.0 - Urinary tract infection, site not specified Status: Resolved Plan: -Pt with suprapubic catheter, draining dark yellow urine -UA reflexed to culture -See antibiotics above -f/u Ucx (8) Elevated LFTs ICD Codes: R79.89 - Other specified abnormal findings of blood chemistry Plan: AST decreased to 40 07/17 -f/u CMP -Continue to monitor (9) Nutrition, metabolism, and development symptoms ICD Codes: R63.8 - Other symptoms and signs concerning food and fluid intake Plan: Fluids:160 mls/hr Electrolytes: low K, replete as needed Nutrition: regular diet DVT ppx: lovenox Problem Qualifiers (1) UTI (urinary tract infection): Qualified Codes: T83.511S - Infection and inflammatory reaction due to indwelling urethral catheter, sequela; N39.0 - Urinary tract infection, site not specified Becky Foote MD R3 Jul 17, 2017 15:09
[2017-07-17 15:15] LABS: HEMOGLOBIN A1C 5.7 % (4.3-6.0)
[2017-07-17] MEDS: ACETAMINOPHEN/HYDROcodone 325 MG/5 MG TAB PO PRN (16:40)
[2017-07-17] MEDS ORDERED: ALBUMIN 5% INJ 500 ML IV ONE (16:45)
--- NOTE | 2017-07-17 18:03 | PD.ID.CON ---
History of Present Illness Service ID Consult Requested By Dr Webb Reason for Consult MRSA bacteremia Primary Care Physician Phil Polanco DO Diagnoses: History of Present Illness 57 yo male ,poor histoian developped pain in L upper chest area x 2 months He also has fever nearly up to 103 He came with left upper and lower extremity weakness and pain. Pt has a suprapubic catheter put in and prostate surgery done about a month ago by Dr. Patel. Patient also had a cervical spine surgery done about a year ago. Patient's rectal temperature was 102.5, the rest of vitals stable. Sed rate 23 K, ESR 140 + Blood clx with high grade MRSA bacteremia 09/25 CT showed Complex loculated 5.9 cm fluid attenuation area at the left lung apex most characteristic of an abscess with extension into the extrathoracic soft tissues superiorly and extending supraclavicular with locules of air present in the supraclavicular region and within the chest lesion. There is a suspected surrounding pneumonia upper left lung, possibly necrotic neoplasm. 2D echo negative MRI with multiple embolic appering lesions Review of Systems ROS Limitations: Poor Historian Past Family Social History Allergies: Coded Allergies: No Known Allergies (Verified Allergy, Unknown, 07/16/17) Past Medical History BPH neuropathy Past Surgical History cervical spine fusion-- after a fall in 2002 lower spinal fusion 2 yrs ago prostatectomy, May 2017 Active Ordered Medications Medications where reviewed in EMR Antibiotics Include: po gomez Family History Father- stroke Mother-heart disease, DM Sister-heart attack Social History -lives in home with brother - disable -Denies smoking, alcohol or illicit drug use Physical Exam Vital Signs Vital Signs Date Time Temp Pulse Resp B/P (MAP) Pulse Ox O2 Delivery O2 Flow Rate FiO2 07/17/17 17:43 16 07/17/17 16:37 97.4 76 20 137/64 (88) 97 07/17/17 16:03 98 07/17/17 15:40 16 07/17/17 12:11 98.3 82 20 164/70 (101) 98 07/17/17 08:57 98.4 73 20 158/72 (100) 98 07/17/17 06:09 97.3 71 19 136/65 (88) 99 07/17/17 00:00 97.9 81 20 143/63 (89) 95 07/16/17 20:00 97.3 97 18 148/67 (94 97 Physical Exam CONSTITUTIONAL/GENERAL: This is an adequately nourished patient, in no apparent distress. TUBES/LINES/DRAINS: SKIN: No jaundice, rashes, or lesions. Skin temperature appropriate. Not diaphoretic. HEAD: Atraumatic. Normocephalic. EYES: Pupils equal and round and reactive. Extraocular motions intact. No scleral icterus. No injection or drainage. Fundi not examined. ENT: Hearing grossly normal. Nose without bleeding or purulent drainage. Throat without visible erythema, exudates, masses, or lesions. NECK: Trachea midline. Supple, nontender. No palpable thyroid enlargement or nodularity. Well healed posterior neck incision CARDIOVASCULAR: Regular rate and rhythm without murmurs, gallops, or rubs. No JVD. Peripheral pulses symmetric. RESPIRATORY/CHEST: Symmetric, unlabored respirations. Clear to auscultation. Breath sounds equal bilaterally. No wheezes, rales, or rhonchi. CHEST with ill defined edema, tenderness in L upper aspect GASTROINTESTINAL: Abdomen soft, non-tender, nondistended. No hepato-splenomegaly , or palpable masses. No guarding. Bowel sounds present. GENITOURINARY: Without palpable bladder distension. SP catheter in place wiith cloudy and blood tinged urine MUSCULOSKELETAL: Extremities without clubbing, cyanosis, + 1 edema. No joint tenderness or effusion noted. No calf tenderness. No mottling or clubbing. LYMPHATICS: No palpable cervical or supraclavicular adenopathy. NEUROLOGICAL: Awake and alert. Motor and sensory grossly within normal limits. Follows commands. Confused, speech is clear but not always coherent LUE weakness PSYCHIATRIC: No obvious anxiety/depression. no apparent hallucinations or other psychotic thought process. Laboratory Laboratory Tests Test 07/17/17 08:13 White Blood Count 16.7 Red Blood Count 3.69 Hemoglobin 8.2 Hematocrit 25.2 Mean Corpuscular Volume 68.3 Mean Corpuscular Hemoglobin 22.3 Mean Corpuscular Hemoglobin Concent 32.7 Red Cell Distribution Width 23.0 Platelet Count 432 Mean Platelet Volume 7.0 Neutrophils (%) (Auto) 76.1 Lymphocytes (%) (Auto) 15.6 Monocytes (%) (Auto) 7.9 Eosinophils (%) (Auto) 0.2 Basophils (%) (Auto) 0.2 Neutrophils # (Auto) 12.7 Lymphocytes # (Auto) 2.6 Monocytes # (Auto) 1.3 Eosinophils # (Auto) 0.0 Basophils # (Auto) 0.0 CBC Comment DIFF FINAL Differential Comment Blood Urea Nitrogen 14 Creatinine 0.98 Random Glucose 69 Total Protein 6.7 Albumin 1.4 Calcium Level 7.9 Alkaline Phosphatase 113 Aspartate Amino Transf (AST/SGOT) 40 Alanine Aminotransferase (ALT/SGPT) 30 Total Bilirubin 0.6 Sodium Level 140 Potassium Level 2.9 Chloride Level 106 Carbon Dioxide Level 25.1 Anion Gap 9 Estimat Glomerular Filtration Rate 95 Hemoglobin A1c 5.7 Date/Time Source Procedure Growth Status 07/16/17 06:20 Blood Peripheral Aerobic Blood Culture - Preliminary S. Aureus Mrsa Resulted 07/16/17 06:20 Anaerobic Blood Culture - Preliminary Gram Positive Cocci Resulted 07/16/17 06:45 Urine Catheterized Urine Urine Culture - Preliminary NO GROWTH IN 24 HOURS. Resulted Result Diagram: 07/17/1713 07/17/17 0813 Imaging Last Impressions Neck Magnetic Resonance Angiography 07/17/17 0000 Signed Impressions: Service Date/Time: Monday, July 17, 2017 09:00 - CONCLUSION: 1. Normal carotid arteries. Tahir Miramontes MD Head Magnetic Resonance Angiography 07/17/17 0000 Signed Impressions: Service Date/Time: Monday, July 17, 2017 09:00 - CONCLUSION: 1. No large vessel aneurysm or stenosis. 2. Normal variants as described above. Tahir Miramontes MD Chest X-Ray 07/16/17 0603 Signed Impressions: Service Date/Time: Sunday, July 16, 2017 06:15 - CONCLUSION: 5 cm masslike opacity at the left apex is a new finding since 2016. Recommend further characterization with contrast enhanced CT thorax. Jorge Young MD Thoracic Spine MRI 07/16/17 0000 Signed Impressions: Service Date/Time: Sunday, July 16, 2017 10:42 - CONCLUSION: 1. Multilevel disc spurs at T3-4, T5-T6 scan, most significantly at T9-10. Despite degenerative changes, there is no cord compromise at any thoracic level. No significant change from prior. 2. Possible loculated effusion in the left lung apex. Bonifacio Echeverria MD Lumbar Spine MRI 07/16/17 0000 Signed Impressions: Service Date/Time: Sunday, July 16, 2017 10:42 - CONCLUSION: 1. Stable CT scan of the lumbar spine compared to the prior examination of 07/29/2015. 2. No evidence to suggest discitis or osteomyelitis. 3. There continues to be spinal canal stenosis at L3-4 and L4-5 without significant change compared to the prior study. Fahad Garrido MD Head CT 07/16/17 Signed Impressions: Service Date/Time: Sunday, July 16, 2017 07:04 - CONCLUSION: Unremarkable study. Sree Lind MD Chest CT 07/16/17 Signed Impressions: Service Date/Time: Sunday, July 16, 2017 12:46 - CONCLUSION: 1. Complex loculated 5.9 cm fluid attenuation area at the left lung apex most characteristic of an abscess with extension into the extrathoracic soft tissues superiorly and extending supraclavicular with locules of air present in the supraclavicular region and within the chest lesion. There is a suspected surrounding pneumonia upper left lung. Cannot exclude necrotic neoplasm. This would be amenable to CT-guided aspiration. 2. Mildly enlarged mediastinal and left hilar lymph nodes. 3. Trace left pleural effusion. Ryan Byrnes MD Cervical Spine MRI 07/16/17 Signed Impressions: Service Date/Time: Sunday, July 16, 2017 10:42 - CONCLUSION: 1. Stable overall appearance of the cervical spine compared to the prior examination of 07/28/2015. 2. Specifically, no evidence to suggest discitis or osteomyelitis. Fahad Garrido MD Brain MRI 07/16/17 Signed Impressions: Service Date/Time: Sunday, July 16, 2017 10:42 - CONCLUSION: 1. 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 Vasquez Thayer MD Abdomen/Pelvis CT 07/16/17 Signed Impressions: Service Date/Time: Sunday, July 16, 2017 12:49 - CONCLUSION: 1. Suprapubic catheter present presumably passing into bladder with thickened bladder wall. There is a Saxena catheter present with the balloon in the lower bladder or possibly within the prostatic region. Patient is reportedly status post prostatectomy. 2. Diffuse ileus. Stable renal cysts. 3. Mild inflammatory changes left lung base. Ryan Byrnes MD Assessment and Plan Assessment and Plan MRSA sepsis, high grade with embolic brain lesions, liekly undelying endocarditis Complex loculated 5.9 cm fluid attenuation area at the left lung apex most characteristic of an abscess with extension into the extrathoracic soft tissues Suspected complex UTI sp prostatic surgery abnd SP cath cont vanco cont zosyn for now fu Urine clx CT surgery consult for lung abscess extending to extrathoracic soft tissue Cardiologies consult for ALEX Stacey Kruger MD Jul 17, 2017 18:03
[2017-07-17] MEDS: ATORVASTATIN 40 MG TAB PO SCH (20:20)
[2017-07-17 21:13] LABS: INTERNATIONAL NORMALIZED RATIO 1.2 RATIO; PROTHROMBIN TIME - PATIENT 11.8 SEC (9.8-11.6)
[2017-07-17 21:32] LABS: BICARBONATE 24.6 MEQ/L (21.0-32.0); CREATININE 1.14 MG/DL (0.60-1.30)
[2017-07-17 22:20] LABS: MAGNESIUM 2.8 MG/DL (1.5-2.5); PHOSPHORUS 3.6 MG/DL (2.5-4.9)
[2017-07-17] MEDS ORDERED: POTASSIUM CHLORIDE 20 MEQ CONTROLLED RELEASE TAB PO ONE (22:45)
[2017-07-18] MEDS: ACETAMINOPHEN/HYDROcodone 325 MG/5 MG TAB PO PRN ×3 (00:16→19:50)
[2017-07-18 00:22] VITALS: BP 131/60; PULSE 74; RESP 18; TEMP 98; O2SAT 96
[2017-07-18] MEDS: PIPERACIL-TAZO 4.5 GM PREMIX 100 ML IV SCH ×4 (02:14→19:51)
[2017-07-18 04:05] VITALS: BP 135/63; PULSE 83; RESP 18; TEMP 97.4; O2SAT 98
[2017-07-18] MEDS: NS + KCL 20 MEQ INJ 1,000 ML IV SCH ×3 (05:52→16:22)
[2017-07-18 06:36] LABS: AUTOMATED NEUTROPHIL # 14.1 TH/MM3 (1.8-7.7); BASOPHIL # 0.1 TH/MM3 (0-0.2); BASOPHIL % 0.4 % (0.0-2.0); EOSINOPHIL # 0.2 TH/MM3 (0-0.4); HEMOGLOBIN 7.6 GM/DL (13.0-17.0); LYMPH % 14.5 % (9.0-44.0); LYMPHOCYTE # 2.7 TH/MM3 (1.0-4.8); MEAN CELL VOLUME 67.7 FL (80.0-100.0); MEAN CORPUSCULAR HEMOGLOBIN 22.5 PG (27.0-34.0); MEAN CORPUSCULAR HGB CONC 33.2 % (32.0-36.0); MEAN PLATELET VOLUME 7.1 FL (7.0-11.0); MONO % 8.3 % (0.0-8.0); MONOCYTE # 1.5 TH/MM3 (0-0.9); NEUT % 75.8 % (16.0-70.0); PLATELET COUNT 445 TH/MM3 (150-450); RED CELL DISTRIBUTION WIDTH 23.2 % (11.6-17.2); WHITE BLOOD COUNT 18.6 TH/MM3 (4.0-11.0)
[2017-07-18 06:57] LABS: ALBUMIN 1.7 GM/DL (3.4-5.0); BICARBONATE 25.2 MEQ/L (21.0-32.0); BLOOD UREA NITROGEN 16 MG/DL (7-18); CALCIUM 7.6 MG/DL (8.5-10.1); CHLORIDE 109 MEQ/L (98-107); GLUCOSE,RANDOM 86 MG/DL (74-106); SODIUM (NA) 141 MEQ/L (136-145)
[2017-07-18 07:00] LABS: ALKALINE PHOSPHATASE 103 U/L (45-117); ALT (GPT) 32 U/L (12-78); AST (GOT) 51 U/L (15-37); CREATININE 1.03 MG/DL (0.60-1.30); GLOMERULAR FILTRATION RATE 90 ML/MIN (>89); TOTAL BILIRUBIN ADULT 0.6 MG/DL (0.2-1.0); TOTAL PROTEIN 6.9 GM/DL (6.4-8.2)
[2017-07-18] MEDS: SODIUM CHLORIDE 0.9% FLUSH 10 ML FLUSH IV FLUSH SCH ×2 (07:19→19:51)
[2017-07-18] MEDS: ENOXAPARIN SODIUM 40 MG/0.4 ML SYRINGE SQ SCH (07:20)
[2017-07-18] MEDS ORDERED: PHARMACY ORDERED LAB ONE (07:45)
[2017-07-18] MEDS: VANCOMYCIN INJ 1,750 MG in SODIUM CHLORID 0.9% 500 ML INJ 500 ML IV SCH (08:14)
[2017-07-18 08:27] VITALS: BP 143/67; PULSE 69; RESP 20; TEMP 97.9; O2SAT 99
[2017-07-18 08:44] LABS: VANCOMYCIN TROUGH 15.3 MCG/ML (5.0-10.0)
--- NOTE | 2017-07-18 08:51 | HHI.FPPN ---
Subjective Remarks Patient seen and examined bedside this morning. Patient continues to complain of pain along the left side, worse around the left abdomen and hip area. He denies any new pains today. Patient denies any chest pains or shortness of breath or difficulty breathing. Patient continues to experience weakness on the left side. Patient was taking in clear liquids without difficulty yesterday. He is nothing by mouth today per instruction for procedure. No acute events overnight. No fevers or chills. Objective Vitals Vital Signs Date Time Temp Pulse Resp B/P (MAP) Pulse Ox O2 Delivery O2 Flow Rate FiO2 07/18/17 08:27 97.9 69 20 143/67 (92) 99 07/18/17 04:05 97.4 83 18 135/63 (87) 98 07/18/17 00:22 98.0 74 18 131/60 (83) 96 07/17/17 19:36 98.4 80 19 106/51 (69) 98 07/17/17 17:43 16 07/17/17 16:37 97.4 76 20 137/64 (88) 97 07/17/17 16:03 98 07/17/17 15:40 16 07/17/17 12:11 98.3 82 20 164/70 (101) 98 07/17/17 08:57 98.4 73 20 158/72 (100) 98 I/O 07/17/17 07/17/17 07/17/17 07/18/17 07/18/17 07/18/17 07:00 15:00 23:00 07:00 15:00 23:00 Intake Total 1500 ml 0 ml 600 ml 370 ml Output Total 900 ml 500 ml Balance 600 ml -500 ml 600 ml 370 ml Intake Oral 0 ml IV Total 1500 ml 600 ml 370 ml Output Urine Total 900 ml 500 ml # Bowel Movements 1 1 2 Result Diagram: 07/18/17 0540 07/18/17 0540 Objective Remarks GENERAL: Appears to be dehydrated, lower lip is cracked and bleeding SKIN: . Cool and dry. HEAD: Atraumatic. Normocephalic. EYES: Extraocular motions intact. No scleral icterus. No injection or drainage. ENT: Nose without bleeding, purulent drainage or septal hematoma. Airway patent. NECK: Trachea midline. No JVD or lymphadenopathy. Supple, nontender, no meningeal signs. Pt with scar from prior surgery on posterior neck CARDIOVASCULAR: Regular rate and rhythm without murmurs, gallops, or rubs. RESPIRATORY: Anterior auscultation; upper respiratory noises are auscultated, equal bilaterally GASTROINTESTINAL: Abdomen soft, non-tender, nondistended. Supra pubic catheter in place, draining dark yellow urine. MUSCULOSKELETAL: Extremities without clubbing, cyanosis, or edema. Pt reports left hip pain with knee flection. No joint tenderness, effusion, or edema noted. No calf tenderness. Negative Homans sign bilaterally. Normal sensation. NEUROLOGICAL: Cranial nerves II through XII intact. 5/5 muscle strength on R Upper Ext. 3/5 on Right LE, 4/5 on L upper ext, 2/5 on Left LE. Normal speech. A/P Assessment and Plan Patient is 57-year-old M with PMHx BPH and s/p prostatectomy (on 05/2017) presented to the ED with 2 wks of progressive worsening left side pain and weakness associated with GAINES. Urologist Dr. Patel, who completed the surgery. Pt found to have Left apical lung mass on imaging and multiple emboli in brain, likely endocarditis. Discharge Planning time frame unclear Problem List: (1) Bacteremia due to Gram-positive bacteria ICD Codes: R78.81 - Bacteremia Plan: Blood culture positive for gram-positive cocci in all 4 vials, 1 vial positive for MRSA History of rectal temp of 102.5, elevated ESR 5.9 cm abscess with suspected pneumonia surrounding, possible necrotic neoplasm -Infectious disease consulted, appreciate recommendations -Continue to monitor vitals and labs -Continue IV Vancomycin, pharmacy consulted -Echo negative for endocarditis - Follow up ALEX today (2) Left-sided weakness ICD Codes: R53.1 - Weakness Plan: Pt reports weakness is improving since admission. -neuro checks Q4h -Out of bed with assistance -PT to evaluate Imaging: -MRI lumbar spine: no osteomyelitis, spinal canal stenosis at L3-L5, no significant change from prior study -MRI thoracic spine: multilevel disc spurs at T3-4 and T5-T6 and T9-10, no cord compression, no significant change from prior study - Head MRA normal - f/u Echo (3) SIRS (systemic inflammatory response syndrome) ICD Codes: R65.10 - Systemic inflammatory response syndrome (SIRS) of non- infectious origin without acute organ dysfunction Plan: On admission Pt with elevated white count at 23.2, Temp:102.1. Lactic acid 1.8. WBC count today -possible source of infection lungs vs cardiac vegetation vs other -See Bacteremia -Continue IV Zosyn 4.5 g Q6hrs -continue to monitor VS (4) Lung mass ICD Codes: R91.8 - Other nonspecific abnormal finding of lung field Status: Acute Plan: Likely abscess related to MRSA bacteremia, less likely neoplasm -CT aspiration to be avoided due to high-risk region of aspiration, will f/u with IR if he is not clinically improving -pulm consulted, recommendation appreciated Chest CT 07/16/17: Complex loculated 5.9 cm fluid attenuation area at the left lung apex most characteristic of an abscess stanchion into the extrathoracic soft tissues superiorly and extending supraclavicular with locules of air present in the supraclavicular region and within the chest lesion. There is a suspected surrounding pneumonia upper left lung. Cannot exclude necrotic neoplasm. This would be amenable to CT guided aspiration. Mildly enlarged mediastinal and left hilar lymph nodes. Trace left pleural effusion. CRX 07/16: 5cm masslike opacity at the left apex - f/u CXR tomorrow (5) Focal infarction of brain ICD Codes: I63.9 - Cerebral infarction, unspecified Plan: Brain MRI with findings consistent with small focal infarcts, likely embolic in the right occipital lobe and right parietal high convexities near the vertex. Based on patient history, likely have been present for 2 weeks+ -Head CT within normal limits -Head MRI within normal limits -Neck MRA normal -PT and OT consulted -Continue statin -Monitor vitals, keep BP controlled (6) Hypokalemia ICD Codes: E87.6 - Hypokalemia Status: Acute Plan: IV fluids with potassium supplementation -Pt given potassium phosphate [id number] -Will check magnesium and phosphorus -Continue to monitor (7) UTI (urinary tract infection) ICD Codes: N39.0 - Urinary tract infection, site not specified Status: Resolved Plan: -Pt with suprapubic catheter, draining dark yellow urine -UA reflexed to culture -See antibiotics above -f/u Ucx (8) Elevated LFTs ICD Codes: R79.89 - Other specified abnormal findings of blood chemistry Plan: -f/u CMP -Continue to monitor (9) Nutrition, metabolism, and development symptoms ICD Codes: R63.8 - Other symptoms and signs concerning food and fluid intake Plan: Fluids:160 mls/hr Electrolytes: low K, replete as needed Nutrition: regular diet DVT ppx: lovenox Problem Qualifiers (1) UTI (urinary tract infection): Qualified Codes: T83.511S - Infection and inflammatory reaction due to indwelling urethral catheter, sequela; N39.0 - Urinary tract infection, site not specified Evangelina Jones MD R2 Jul 18, 2017 08:51
[2017-07-18 09:35] LABS: OVALOCYTES 1+ (NORMAL); TARGET CELLS 1+ (NORMAL)
--- NOTE | 2017-07-18 10:11 | MB ---
cc: WILY CULVER DATE OF CONSULTATION 07/18/2017 REASON FOR CONSULTATION Mr. Mcintosh is a 57-year-old white male with a history of left upper chest pain, fever and generalized weakness. He was found to have a left lung apical lesion, likely an abscess. His 2-D echo is negative and ALEX is now requested by Dr. Kruger. He was found to have MRSA bacteremia. PAST MEDICAL HISTORY Positive for: 1. BPH 2. Neuropathy 3. Cervical spine fusion in 2002 4. Lower spinal fusion a two years ago. 5. Prostatectomy 6. Suprapubic catheter placed in surgery 7. Prostate surgery about a month ago. MEDICATIONS Medications include: 1. Atorvastatin 2. Piperacillin 3. [place] 4. Vancomycin 5. Toradol p.r.n. 6. Lovenox ALLERGIES None SOCIAL HISTORY The patient does not smoke. He does not drink alcohol. FAMILY HISTORY Positive for heart disease in his mother. REVIEW OF SYSTEMS Otherwise negative. PHYSICAL EXAMINATION Blood pressure 143/67, pulse 69 and regular. HEENT: Negative. NECK: 2+ carotid upstrokes, no bruits. LUNGS: Clear. HEART: Regular with no murmur, rub or gallop. ABDOMEN: Soft. No bruits. EXTREMITIES: With mild edema, 1-2+ distal pulses. NEUROLOGIC: Exam is grossly nonfocal. LABORATORY DATA Hemoglobin 7.6, potassium 3.3, creatinine 1.0, AST 51, ALT 32. DIAGNOSIS 1. MRSA sepsis. 2. Embolic brain lesions 3. Suspected left lung apical abscess 4. UTI, status post prostate surgery and suprapubic catheter placement. DISPOSITION Mr. Mcintosh will be scheduled for transesophageal echocardiogram today to evaluate for endocarditis. He understands the risks and benefits, and wishes to proceed. We will continue antibiotics as per ID. MD RITU Armas/MANDY /9:45 AM /9:54 AM ACE
[2017-07-18 12:00] VITALS: BP 141/67; PULSE 72; RESP 20; TEMP 97.3; O2SAT 97
[2017-07-18 16:00] VITALS: BP 172/79; PULSE 71; RESP 20; TEMP 97.8; O2SAT 98
--- NOTE | 2017-07-18 16:13 | PD.CAR.PN ---
CVT Progress Note Subjective/Hospital Course: 57 y/o male with MRSA sepsis and consolidation of the left apex. Objective: Vital Signs Date Time Temp Pulse Resp B/P (MAP) Pulse Ox O2 Delivery O2 Flow Rate FiO2 07/18/17 12:26 16 07/18/17 12:00 97.3 72 20 141/67 (91) 97 07/18/17 08:27 97.9 69 20 143/67 (92) 99 07/18/17 04:05 97.4 83 18 135/63 (87) 98 07/18/17 00:22 98.0 74 18 131/60 (83) 96 07/17/17 19:36 98.4 80 19 106/51 (69) 98 07/17/17 16:37 97.4 76 20 137/64 (88) 97 Labs: Laboratory Tests Test 07/18/17 05:40 White Blood Count 18.6 TH/MM3 (4.0-11.0) Red Blood Count 3.40 MIL/MM3 (4.50-5.90) Hemoglobin 7.6 GM/DL (13.0-17.0) Hematocrit 23.0 % (39.0-51.0) Mean Corpuscular Volume 67.7 FL (80.0-100.0) Mean Corpuscular Hemoglobin 22.5 PG (27.0-34.0) Mean Corpuscular Hemoglobin Concent 33.2 % (32.0-36.0) Red Cell Distribution Width 23.2 % (11.6-17.2) Platelet Count 445 TH/MM3 (150-450) Mean Platelet Volume 7.1 FL (7.0-11.0) Neutrophils (%) (Auto) 75.8 % (16.0-70.0) Lymphocytes (%) (Auto) 14.5 % (9.0-44.0) Monocytes (%) (Auto) 8.3 % (0.0-8.0) Eosinophils (%) (Auto) 1.0 % (0.0-4.0) Basophils (%) (Auto) 0.4 % (0.0-2.0) Neutrophils # (Auto) 14.1 TH/MM3 (1.8-7.7) Lymphocytes # (Auto) 2.7 TH/MM3 (1.0-4.8) Monocytes # (Auto) 1.5 TH/MM3 (0-0.9) Eosinophils # (Auto) 0.2 TH/MM3 (0-0.4) Basophils # (Auto) 0.1 TH/MM3 (0-0.2) CBC Comment AUTO DIFF Differential Comment AUTO DIFF CONFIRMED Target Cells 1+ (NORMAL) Ovalocytes 1+ (NORMAL) Blood Urea Nitrogen 16 MG/DL (7-18) Creatinine 1.03 MG/DL (0.60-1.30) Random Glucose 86 MG/DL (74-106) Total Protein 6.9 GM/DL (6.4-8.2) Albumin 1.7 GM/DL (3.4-5.0) Calcium Level 7.6 MG/DL (8.5-10.1) Alkaline Phosphatase 103 U/L (45-117) Aspartate Amino Transf (AST/SGOT) 51 U/L (15-37) Alanine Aminotransferase (ALT/SGPT) 32 U/L (12-78) Total Bilirubin 0.6 MG/DL (0.2-1.0) Sodium Level 141 MEQ/L (136-145) Potassium Level 3.3 MEQ/L (3.5-5.1) Chloride Level 109 MEQ/L (98-107) Carbon Dioxide Level 25.2 MEQ/L (21.0-32.0) Anion Gap 7 MEQ/L (5-15) Estimat Glomerular Filtration Rate 90 ML/MIN (>89) Vancomycin Level Trough 15.3 MCG/ML (5.0-10.0) Result Diagram: 07/18/17 0540 07/18/17 0540 Imaging: Last Impressions Neck Magnetic Resonance Angiography 07/17/17 0000 Signed Impressions: Service Date/Time: Monday, July 17, 2017 09:00 - CONCLUSION: 1. Normal carotid arteries. Tahir Miramontes MD Head Magnetic Resonance Angiography 07/17/17 0000 Signed Impressions: Service Date/Time: Monday, July 17, 2017 09:00 - CONCLUSION: 1. No large vessel aneurysm or stenosis. 2. Normal variants as described above. Tahir Miramontes MD Chest X-Ray 07/16/17 0603 Signed Impressions: Service Date/Time: Sunday, July 16, 2017 06:15 - CONCLUSION: 5 cm masslike opacity at the left apex is a new finding since 2016. Recommend further characterization with contrast enhanced CT thorax. Jorge Young MD Thoracic Spine MRI 07/16/17 0000 Signed Impressions: Service Date/Time: Sunday, July 16, 2017 10:42 - CONCLUSION: 1. Multilevel disc spurs at T3-4, T5-T6 scan, most significantly at T9-10. Despite degenerative changes, there is no cord compromise at any thoracic level. No significant change from prior. 2. Possible loculated effusion in the left lung apex. Bonifacio Echeverria MD Lumbar Spine MRI 07/16/17 0000 Signed Impressions: Service Date/Time: Sunday, July 16, 2017 10:42 - CONCLUSION: 1. Stable CT scan of the lumbar spine compared to the prior examination of 07/29/2015. 2. No evidence to suggest discitis or osteomyelitis. 3. There continues to be spinal canal stenosis at L3-4 and L4-5 without significant change compared to the prior study. Fahad Garrido MD Head CT 07/16/17 0000 Signed Impressions: Service Date/Time: Sunday, July 16, 2017 07:04 - CONCLUSION: Unremarkable study. Sree Lind MD Chest CT 07/16/17 0000 Signed Impressions: Service Date/Time: Sunday, July 16, 2017 12:46 - CONCLUSION: 1. Complex loculated 5.9 cm fluid attenuation area at the left lung apex most characteristic of an abscess with extension into the extrathoracic soft tissues superiorly and extending supraclavicular with locules of air present in the supraclavicular region and within the chest lesion. There is a suspected surrounding pneumonia upper left lung. Cannot exclude necrotic neoplasm. This would be amenable to CT-guided aspiration. 2. Mildly enlarged mediastinal and left hilar lymph nodes. 3. Trace left pleural effusion. Ryan Byrnes MD Cervical Spine MRI 07/16/17 0000 Signed Impressions: Service Date/Time: Sunday, July 16, 2017 10:42 - CONCLUSION: 1. Stable overall appearance of the cervical spine compared to the prior examination of 07/28/2015. 2. Specifically, no evidence to suggest discitis or osteomyelitis. Fahad Garrido MD Brain MRI 07/16/17 0000 Signed Impressions: Service Date/Time: Sunday, July 16, 2017 10:42 - CONCLUSION: 1. 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 Vasquez Thayer MD Abdomen/Pelvis CT 07/16/17 0000 Signed Impressions: Service Date/Time: Sunday, July 16, 2017 12:49 - CONCLUSION: 1. Suprapubic catheter present presumably passing into bladder with thickened bladder wall. There is a Saxena catheter present with the balloon in the lower bladder or possibly within the prostatic region. Patient is reportedly status post prostatectomy. 2. Diffuse ileus. Stable renal cysts. 3. Mild inflammatory changes left lung base. Ryan Byrnes MD Cardiovascular: RRR Pulmonary: Decreased BS on left. GI/: NABS Plan: 57y/o male with MRSA sepsis. Dr. Kruger asked me to review the chest CT. He appears to have parenchymal disease and I do not appreciate much of an effusion or air/fluid level. He would likely benefit from bronchoscopy, but I do not see a role for drain placement or surgery at this time. Olivia Cullen MD Jul 18, 2017 16:13
--- NOTE | 2017-07-18 17:56 | HHI.IDPN ---
Subjective Subjective Remarks c/o not feeling well c/o L sided chest pain and tenderness still c/o L side weakness no fever Small vegetation present onmitral valve urone clx with no growth Antibiotics zosyn vanco Allergies: Coded Allergies: No Known Allergies (Verified Allergy, Unknown, 07/16/17) Objective . Vital Signs Date Time Temp Pulse Resp B/P (MAP) Pulse Ox O2 Delivery O2 Flow Rate FiO2 07/18/17 16:00 97.8 71 20 172/79 (110) 98 07/18/17 12:26 16 07/18/17 12:00 97.3 72 20 141/67 (91) 97 07/18/17 08:27 97.9 69 20 143/67 (92) 99 07/18/17 04:05 97.4 83 18 135/63 (87) 98 07/18/17 00:22 98.0 74 18 131/60 (83) 96 07/17/17 19:36 98.4 80 19 106/51 (69) 98 07/18/17 07/18/17 07/19/17 15:00 23:00 07:00 Output Total 600 ml Balance -600 ml Output Urine Total 600 ml # Bowel Movements 2 . Laboratory Tests Test 07/17/17 08:13 07/18/17 05:40 White Blood Count 16.7 TH/MM3 18.6 TH/MM3 Red Blood Count 3.69 MIL/MM3 3.40 MIL/MM3 Hemoglobin 8.2 GM/DL 7.6 GM/DL Hematocrit 25.2 % 23.0 % Mean Corpuscular Volume 68.3 FL 67.7 FL Mean Corpuscular Hemoglobin 22.3 PG 22.5 PG Mean Corpuscular Hemoglobin Concent 32.7 % 33.2 % Red Cell Distribution Width 23.0 % 23.2 % Platelet Count 432 TH/MM3 445 TH/MM3 Mean Platelet Volume 7.0 FL 7.1 FL Neutrophils (%) (Auto) 76.1 % 75.8 % Lymphocytes (%) (Auto) 15.6 % 14.5 % Monocytes (%) (Auto) 7.9 % 8.3 % Eosinophils (%) (Auto) 0.2 % 1.0 % Basophils (%) (Auto) 0.2 % 0.4 % Neutrophils # (Auto) 12.7 TH/MM3 14.1 TH/MM3 Lymphocytes # (Auto) 2.6 TH/MM3 2.7 TH/MM3 Monocytes # (Auto) 1.3 TH/MM3 1.5 TH/MM3 Eosinophils # (Auto) 0.0 TH/MM3 0.2 TH/MM3 Basophils # (Auto) 0.0 TH/MM3 0.1 TH/MM3 CBC Comment DIFF FINAL AUTO DIFF Differential Comment AUTO DIFF CONFIRMED Target Cells 1+ Ovalocytes 1+ Laboratory Tests Test 07/17/17 08:13 07/17/17 20:00 07/18/17 05:40 Blood Urea Nitrogen 14 MG/DL 19 MG/DL 16 MG/DL Creatinine 0.98 MG/DL 1.14 MG/DL 1.03 MG/DL Random Glucose 69 MG/DL 114 MG/DL 86 MG/DL Total Protein 6.7 GM/DL 6.9 GM/DL Albumin 1.4 GM/DL 1.7 GM/DL Calcium Level 7.9 MG/DL 8.0 MG/DL 7.6 MG/DL Alkaline Phosphatase 113 U/L 103 U/L Aspartate Amino Transf (AST/SGOT) 40 U/L 51 U/L Alanine Aminotransferase (ALT/SGPT) 30 U/L 32 U/L Total Bilirubin 0.6 MG/DL 0.6 MG/DL Sodium Level 140 MEQ/L 138 MEQ/L 141 MEQ/L Potassium Level 2.9 MEQ/L 2.8 MEQ/L 3.3 MEQ/L Chloride Level 106 MEQ/L 105 MEQ/L 109 MEQ/L Carbon Dioxide Level 25.1 MEQ/L 24.6 MEQ/L 25.2 MEQ/L Anion Gap 9 MEQ/L 8 MEQ/L 7 MEQ/L Estimat Glomerular Filtration Rate 95 ML/MIN 80 ML/MIN 90 ML/MIN Hemoglobin A1c 5.7 % Phosphorus Level 3.6 MG/DL Magnesium Level 2.8 MG/DL Microbiology Date/Time Source Procedure Growth Status 07/16/17 06:20 Blood Peripheral Aerobic Blood Culture - Preliminary S. Aureus Mrsa Resulted 07/16/17 06:20 Anaerobic Blood Culture - Preliminary S. Aureus Mrsa Resulted 07/16/17 06:10 Blood Peripheral Aerobic Blood Culture - Preliminary S. Aureus Mrsa Resulted 07/16/17 06:10 Anaerobic Blood Culture - Preliminary S. Aureus Mrsa Resulted 07/16/17 06:45 Urine Catheterized Urine Urine Culture - Final NO GROWTH IN 48 HOURS. Complete Imaging Last Impressions Neck Magnetic Resonance Angiography 07/17/17 Signed Impressions: Service Date/Time: Monday, July 17, 2017 09:00 - CONCLUSION: 1. Normal carotid arteries. Tahir Miramontes MD Head Magnetic Resonance Angiography 07/17/17 Signed Impressions: Service Date/Time: Monday, July 17, 2017 09:00 - CONCLUSION: 1. No large vessel aneurysm or stenosis. 2. Normal variants as described above. Tahir Miramontes MD Chest X-Ray 07/16/17 0603 Signed Impressions: Service Date/Time: Sunday, July 16, 2017 06:15 - CONCLUSION: 5 cm masslike opacity at the left apex is a new finding since 2016. Recommend further characterization with contrast enhanced CT thorax. Jorge oYung MD Thoracic Spine MRI 07/16/17 Signed Impressions: Service Date/Time: Sunday, July 16, 2017 10:42 - CONCLUSION: 1. Multilevel disc spurs at T3-4, T5-T6 scan, most significantly at T9-10. Despite degenerative changes, there is no cord compromise at any thoracic level. No significant change from prior. 2. Possible loculated effusion in the left lung apex. Bonifacio Echeverria MD Lumbar Spine MRI 07/16/17 Signed Impressions: Service Date/Time: Sunday, July 16, 2017 10:42 - CONCLUSION: 1. Stable CT scan of the lumbar spine compared to the prior examination of 07/29/2015. 2. No evidence to suggest discitis or osteomyelitis. 3. There continues to be spinal canal stenosis at L3-4 and L4-5 without significant change compared to the prior study. Fahad Garrido MD Head CT 07/16/17 Signed Impressions: Service Date/Time: Sunday, July 16, 2017 07:04 - CONCLUSION: Unremarkable study. Sree Lind MD Chest CT 07/16/17 0000 Signed Impressions: Service Date/Time: Sunday, July 16, 2017 12:46 - CONCLUSION: 1. Complex loculated 5.9 cm fluid attenuation area at the left lung apex most characteristic of an abscess with extension into the extrathoracic soft tissues superiorly and extending supraclavicular with locules of air present in the supraclavicular region and within the chest lesion. There is a suspected surrounding pneumonia upper left lung. Cannot exclude necrotic neoplasm. This would be amenable to CT-guided aspiration. 2. Mildly enlarged mediastinal and left hilar lymph nodes. 3. Trace left pleural effusion. Ryan Byrnes MD Cervical Spine MRI 07/16/17 0000 Signed Impressions: Service Date/Time: Sunday, July 16, 2017 10:42 - CONCLUSION: 1. Stable overall appearance of the cervical spine compared to the prior examination of 07/28/2015. 2. Specifically, no evidence to suggest discitis or osteomyelitis. Fahad Garrido MD Brain MRI 07/16/17 0000 Signed Impressions: Service Date/Time: Sunday, July 16, 2017 10:42 - CONCLUSION: 1. 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 Vasquez Thayer MD Abdomen/Pelvis CT 07/16/17 0000 Signed Impressions: Service Date/Time: Sunday, July 16, 2017 12:49 - CONCLUSION: 1. Suprapubic catheter present presumably passing into bladder with thickened bladder wall. There is a Saxena catheter present with the balloon in the lower bladder or possibly within the prostatic region. Patient is reportedly status post prostatectomy. 2. Diffuse ileus. Stable renal cysts. 3. Mild inflammatory changes left lung base. Ryan Byrnes MD Physical Exam CONSTITUTIONAL/GENERAL: This is an adequately nourished patient, in no apparent distress. TUBES/LINES/DRAINS: SKIN: No jaundice, rashes, or lesions. Skin temperature appropriate. Not diaphoretic. HEAD: Atraumatic. Normocephalic. EYES: Pupils equal and round and reactive. Extraocular motions intact. No scleral icterus. No injection or drainage. Fundi not examined. ENT: Hearing grossly normal. Nose without bleeding or purulent drainage. Throat without visible erythema, exudates, masses, or lesions. NECK: Trachea midline. Supple, nontender. + non tender enlarghed supraclavicular nodules Well healed posterior neck incision CARDIOVASCULAR: Regular rate and rhythm without murmurs, gallops, or rubs. No JVD. Peripheral pulses symmetric. RESPIRATORY/CHEST: Symmetric, unlabored respirations. Clear to auscultation. Breath sounds equal bilaterally. No wheezes, rales, or rhonchi. CHEST with ill defined edema, tenderness in L upper aspect GASTROINTESTINAL: Abdomen soft, non-tender, nondistended. No hepato-splenomegaly , or palpable masses. No guarding. Bowel sounds present. GENITOURINARY: Without palpable bladder distension. SP catheter in place wiith cloudy and blood tinged urine MUSCULOSKELETAL: Extremities without clubbing, cyanosis, + 1 edema. No joint tenderness or effusion noted. No calf tenderness. No mottling or clubbing. LYMPHATICS: No palpable cervical or supraclavicular adenopathy. NEUROLOGICAL: Awake and alert. Motor and sensory grossly within normal limits. Follows commands. Confused, speech is clear but not always coherent LUE weakness PSYCHIATRIC: No obvious anxiety/depression. no apparent hallucinations or other psychotic thought process. 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
[2017-07-18] MEDS: ATORVASTATIN 40 MG TAB PO SCH (19:50)
[2017-07-18 20:00] VITALS: BP_SYST 104; BP_SYST 109; BP_DIAS 62; BP_DIAS 72; PULSE 81; RESP 17; TEMP 98; O2SAT 95
[2017-07-19] VITALS: BP 154/81; PULSE 84; RESP 18; TEMP 97.6; O2SAT 97
[2017-07-19] MEDS: NS + KCL 20 MEQ INJ 1,000 ML IV SCH ×3 (00:15→13:39)
[2017-07-19] MEDS: PIPERACIL-TAZO 4.5 GM PREMIX 100 ML IV SCH ×4 (01:07→20:39)
[2017-07-19] MEDS: ACETAMINOPHEN/HYDROcodone 325 MG/5 MG TAB PO PRN ×2 (01:58→09:40)
[2017-07-19] MEDS: VANCOMYCIN INJ 2,250 MG in SODIUM CHLORID 0.9% 500 ML INJ 500 ML IV SCH ×2 (01:59→20:39)
[2017-07-19 04:52] VITALS: BP 162/73; PULSE 80; RESP 18; TEMP 97.2; O2SAT 99
[2017-07-19 07:57] VITALS: BP 168/77; PULSE 78; RESP 20; TEMP 98.4; O2SAT 98
[2017-07-19 08:15] LABS: AUTOMATED NEUTROPHIL # 12.4 TH/MM3 (1.8-7.7); BASOPHIL # 0.1 TH/MM3 (0-0.2); BASOPHIL % 0.7 % (0.0-2.0); EOSINOPHIL # 0.3 TH/MM3 (0-0.4); EOSINOPHIL % 1.5 % (0.0-4.0); HEMATOCRIT 25.2 % (39.0-51.0); HEMOGLOBIN 8.1 GM/DL (13.0-17.0); LYMPH % 17.2 % (9.0-44.0); MEAN CELL VOLUME 68.1 FL (80.0-100.0); MEAN CORPUSCULAR HEMOGLOBIN 21.9 PG (27.0-34.0); MEAN CORPUSCULAR HGB CONC 32.2 % (32.0-36.0); MONO % 8.4 % (0.0-8.0); MONOCYTE # 1.4 TH/MM3 (0-0.9); NEUT % 72.2 % (16.0-70.0); PLATELET COUNT 462 TH/MM3 (150-450); RED CELL DISTRIBUTION WIDTH 23.3 % (11.6-17.2); WHITE BLOOD COUNT 17.2 TH/MM3 (4.0-11.0)
[2017-07-19 08:55] LABS: BICARBONATE 23.6 MEQ/L (21.0-32.0); CREATININE 0.97 MG/DL (0.60-1.30)
[2017-07-19] MEDS: SODIUM CHLORIDE 0.9% FLUSH 10 ML FLUSH IV FLUSH SCH ×2 (09:32→20:40)
--- NOTE | 2017-07-19 09:40 | RADRPT ---
EXAM DATE/TIME: 07/19/2017 09:05 [facility] COMPARISON: CHEST SINGLE AP, July 16, 2017, 6:15. CT THORAX W CONTRAST, July 16, 2017, 12:46. CHEST PA & LAT, August 06, 2015, 16:04. INDICATIONS : Chest pain. Coughing up blood. MEDICAL HISTORY : None. SURGICAL HISTORY : None. ENCOUNTER: Subsequent ACUITY: 3 days PAIN SCORE: 10/10 LOCATION: Bilateral chest FINDINGS: Mass apex left lung that could be collapsed left upper lobe. Cardiomegaly without overt congestive f ailure. No pleural effusion no pneumothorax. CONCLUSION: Consolidative masslike opacity left upper lobe stable from CT scan 07/16/2017. Fredy Vega MD FACR on July 19, 2017 at 9:36 Board Certified Radiologist. This report was verified electronically.
[2017-07-19] MEDS: ENOXAPARIN SODIUM 40 MG/0.4 ML SYRINGE SQ SCH (11:00)
--- NOTE | 2017-07-19 11:09 | MB ---
cc: RATNA,RATNA DATE OF CONSULTATION 07/18/17 REASON FOR CONSULTATION Left apical lung abscess with supraclavicular extension. HISTORY OF PRESENT ILLNESS The patient is a 57 year old male admitted with left upper chest pain and left upper extremity weakness and temperature elevation to 103 degrees Fahrenheit. The patient had a CT scan of the chest revealing a 5.9 cm fluid collection probably representing a lung abscess with supraclavicular extension with air present in the supraclavicular lesion. I am asked to see the patient at this time for same. An echocardiogram was done and was negative. Brain MRI revealed multiple embolic lesions as well. PAST MEDICAL HISTORY 1. Recent suprapubic cath placement 2. Recent prostatectomy done by suprapubic approach in May of 2017. 3. Spinal fusion two years ago. 4. History of benign prostatic hypertrophy. FAMILY HISTORY Positive for diabetes, heart disease, stroke, coronary artery disease. SOCIAL HISTORY Does not smoke, does not drink, does not use drugs. REVIEW OF SYSTEMS A 12 point review of systems as per History of Present Illness and past history otherwise negative. PHYSICAL EXAMINATION GENERAL: The patient is alert. VITAL SIGNS: Temperature 98.5, pulse 80, respirations 18, blood pressure 150/70. HEENT: Unremarkable. Eyes without icterus. NECK: No adenopathy, no thyroid enlargement. Central trachea. CHEST: Without dullness to percussion, clear to auscultation. CARDIAC: PMI distant. S1, S2 audible. No murmur or rub. ABDOMEN: Lax, audible bowel sounds. EXTREMITIES: 1+ edema. SKIN: Normal. LABORATORY DATA White count 16,000, hemoglobin 8.2, hematocrit 25. Sodium 140, potassium 2.9, BUN 14, creatinine 0.9. IMPRESSION Left apical lung abscess, malignancy less likely. Suprapubic extension. PLAN The patient has been seen by Infectious Disease, antibiotic therapy instituted. Thoracic surgery to see patient. We will ask interventional radiology to proceed with aspiration of the lung abscess and, if not possible the supraclavicular area will give us an idea about what particular organism is present, if indeed, this is an abscess, malignancy which is less likely could be diagnosed as well. I do thank you for asking me to partake in Mr. Mcintosh's care. MD MATILDA Gamble/ /4:51 PM /11:04
[2017-07-19 11:51] VITALS: BP 166/78; PULSE 79; RESP 20; TEMP 98; O2SAT 98
--- NOTE | 2017-07-19 11:55 | HHI.FPPN ---
Subjective Remarks Patient seen and examined at bedside. No acute events overnight. Patient denies shortness of breath, nausea, vomiting. Patient with Saxena in place draining yellow urine with residual rbc fragments. Patient stated last bowel movement was yesterday. Patient tolerating by mouth intake well. Patient reports generalized abdominal pain started last night. Patient still complains of left leg pain and left arm pain, although pain has improved from admission. (Sarah Webb MD, R1) Objective Vitals Vital Signs Date Time Temp Pulse Resp B/P (MAP) Pulse Ox O2 Delivery O2 Flow Rate FiO2 07/19/17 11:51 98.0 79 20 166/78 (107) 98 07/19/17 07:57 98.4 78 20 168/77 (107) 98 07/19/17 04:52 97.2 80 18 162/73 (102) 99 07/19/17 00:00 97.6 84 18 154/81 (105) 97 07/18/17 20:00 98.0 81 17 109/72 (84) 95 07/18/17 16:00 97.8 71 20 172/79 (110) 98 07/18/17 12:26 16 07/18/17 12:00 97.3 72 20 141/67 (91) 97 I/O 07/18/17 07/18/17 07/18/17 07/19/17 07/19/17 07/19/17 07:00 15:00 23:00 07:00 15:00 23:00 Intake Total 370 ml Output Total 600 ml 950 ml Balance 370 ml -600 ml -950 ml IV Total 370 ml Output Urine Total 600 ml 950 ml # Bowel Movements 2 2 1 (Sarah Webb MD, R1) Result Diagram: 07/19/17 0745 07/19/17 0745 Imaging Last Impressions Chest X-Ray 07/19/17 0600 Signed Impressions: Service Date/Time: Wednesday, July 19, 2017 09:05 - CONCLUSION: Consolidative masslike opacity left upper lobe stable from CT scan 07/16/2017. Fredy Vega MD FACR Neck Magnetic Resonance Angiography 07/17/17 0000 Signed Impressions: Service Date/Time: Monday, July 17, 2017 09:00 - CONCLUSION: 1. Normal carotid arteries. Tahir Miramontes MD Head Magnetic Resonance Angiography 07/17/17 0000 Signed Impressions: Service Date/Time: Monday, July 17, 2017 09:00 - CONCLUSION: 1. No large vessel aneurysm or stenosis. 2. Normal variants as described above. Tahir Miramontes MD Thoracic Spine MRI 07/16/17 0000 Signed Impressions: Service Date/Time: Sunday, July 16, 2017 10:42 - CONCLUSION: 1. Multilevel disc spurs at T3-4, T5-T6 scan, most significantly at T9-10. Despite degenerative changes, there is no cord compromise at any thoracic level. No significant change from prior. 2. Possible loculated effusion in the left lung apex. Bonifacio Echeverria MD Lumbar Spine MRI 07/16/17 0000 Signed Impressions: Service Date/Time: Sunday, July 16, 2017 10:42 - CONCLUSION: 1. Stable CT scan of the lumbar spine compared to the prior examination of 07/29/2015. 2. No evidence to suggest discitis or osteomyelitis. 3. There continues to be spinal canal stenosis at L3-4 and L4-5 without significant change compared to the prior study. Fahad Garrido MD Head CT 07/16/17 0000 Signed Impressions: Service Date/Time: Sunday, July 16, 2017 07:04 - CONCLUSION: Unremarkable study. Sree Lind MD Chest CT 07/16/17 0000 Signed Impressions: Service Date/Time: Sunday, July 16, 2017 12:46 - CONCLUSION: 1. Complex loculated 5.9 cm fluid attenuation area at the left lung apex most characteristic of an abscess with extension into the extrathoracic soft tissues superiorly and extending supraclavicular with locules of air present in the supraclavicular region and within the chest lesion. There is a suspected surrounding pneumonia upper left lung. Cannot exclude necrotic neoplasm. This would be amenable to CT-guided aspiration. 2. Mildly enlarged mediastinal and left hilar lymph nodes. 3. Trace left pleural effusion. Ryan Byrnes MD Cervical Spine MRI 07/16/17 0000 Signed Impressions: Service Date/Time: Sunday, July 16, 2017 10:42 - CONCLUSION: 1. Stable overall appearance of the cervical spine compared to the prior examination of 07/28/2015. 2. Specifically, no evidence to suggest discitis or osteomyelitis. Fahad Garrido MD Brain MRI 07/16/17 0000 Signed Impressions: Service Date/Time: Sunday, July 16, 2017 10:42 - CONCLUSION: 1. 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 Vasquez Thayer MD Abdomen/Pelvis CT 07/16/17 0000 Signed Impressions: Service Date/Time: Sunday, July 16, 2017 12:49 - CONCLUSION: 1. Suprapubic catheter present presumably passing into bladder with thickened bladder wall. There is a Saxena catheter present with the balloon in the lower bladder or possibly within the prostatic region. Patient is reportedly status post prostatectomy. 2. Diffuse ileus. Stable renal cysts. 3. Mild inflammatory changes left lung base. Ryan Byrnes MD Objective Remarks GENERAL: Patient awake laying in bed SKIN: . Cool and dry. HEAD: Atraumatic. Normocephalic. EYES: Extraocular motions intact. No scleral icterus. No injection or drainage. ENT: Nose without bleeding, purulent drainage or septal hematoma. Airway patent. NECK: Trachea midline. No JVD or lymphadenopathy. Supple, nontender, no meningeal signs. Pt with scar from prior surgery on posterior neck CARDIOVASCULAR: Regular rate and rhythm without murmurs, gallops, or rubs. RESPIRATORY: Anterior auscultation; upper respiratory noises are auscultated, equal bilaterally GASTROINTESTINAL: Abdomen soft, non-tender,distended. Supra pubic catheter in place, draining dark yellow urine. MUSCULOSKELETAL: Extremities without clubbing, cyanosis, or edema. Pt reports left hip pain with knee flection. No joint tenderness, effusion, or edema noted. No calf tenderness. Negative Homans sign bilaterally. Normal sensation. NEUROLOGICAL: Cranial nerves II through XII intact. 5/5 muscle strength on R Upper Ext. 3/5 on Right LE, 4/5 on L upper ext, 2/5 on Left LE. Normal speech. (Sarah Webb MD, R1) A/P Assessment and Plan Patient is 57-year-old M with PMHx BPH and s/p prostatectomy (on 05/2017) presented to the ED with 2 wks of progressive worsening left side pain and weakness associated with GAINES. Urologist Dr. Patel, who completed the surgery. Pt found to have Left apical lung mass on imaging and focal embolic in in brain MRI. Pt is currently being treated for MRSA bacteremia. ALEX results positive for small mitral valve vegetation. Discharge Planning time frame unclear (Sarah Webb MD, R1) Assessment and Plan Patient seen and examined on the morning of July 19 with resident team.. Case reviewed and discussed with resident team. Agree with plan of care is discussed with me and documented in the resident note. (Van Rand MD) Problem List: (1) Bacteremia due to Gram-positive bacteria ICD Codes: R78.81 - Bacteremia Plan: Blood cultures on admission (07/16): Positive for MRSA. History of rectal temp of 102.5, elevated ESR 5.9 cm abscess with suspected pneumonia surrounding -Infectious disease consulted, appreciate recommendations -Continue to monitor vitals and labs -Continue IV Vancomycin, pharmacy consulted -Echo negative for endocarditis ALEX results: Mitral valve was structurally normal, but there was evidence of a small mobile mitral valve vegetation. Borderline normal left ventricular systolic function. Trace regurgitation of mitral and tricuspid valve. Trace pulmonary insufficiency -f/u repeat blood cx results (2) Endocarditis ICD Codes: I38 - Endocarditis, valve unspecified Plan: see plan above for bacteremia (3) Left-sided weakness ICD Codes: R53.1 - Weakness Status: Acute Plan: Pt reports weakness is improving since admission. -neuro checks Q4h -Out of bed with assistance -PT to evaluate, recommendations: Continue physical therapy at rehabilitation and OT therapy. -Will submit OT referral for evaluation Imaging: -MRI lumbar spine: no osteomyelitis, spinal canal stenosis at L3-L5, no significant change from prior study -MRI thoracic spine: multilevel disc spurs at T3-4 and T5-T6 and T9-10, no cord compression, no significant change from prior study -MRI brain: Small focal infarcts likely embolic in the right occipital lobe and right parietal high convexities near the vertex. - Head MRA normal - Echo: EF of 50%. Trace tricuspid valve regurgitation. Otherwise normal echo. (4) SIRS (systemic inflammatory response syndrome) ICD Codes: R65.10 - Systemic inflammatory response syndrome (SIRS) of non- infectious origin without acute organ dysfunction Plan: On admission Pt with elevated white count at 23.2, Temp:102.1. Lactic acid 1.8. WBC count today -possible source of infection lungs vs cardiac vegetation: Patient found to have lung abscess at left apex and mitral valve vegetation. -WBC down trending trending, afebrile -See Bacteremia -Continue IV Zosyn 4.5 g Q6hrs -continue to monitor VS (5) Lung mass ICD Codes: R91.8 - Other nonspecific abnormal finding of lung field Status: Acute Plan: Likely abscess related to MRSA bacteremia, less likely neoplasm -CT aspiration to be avoided due to high-risk region of aspiration, will f/u with IR if he is not clinically improving -pulm consulted, recommendation appreciated -Plan to have interventional radiology do aspiration of lung abscess. Chest CT 07/16/17: Complex loculated 5.9 cm fluid attenuation area at the left lung apex most characteristic of an abscess stanchion into the extrathoracic soft tissues superiorly and extending supraclavicular with locules of air present in the supraclavicular region and within the chest lesion. There is a suspected surrounding pneumonia upper left lung. Cannot exclude necrotic neoplasm. This would be amenable to CT guided aspiration. Mildly enlarged mediastinal and left hilar lymph nodes. Trace left pleural effusion. CRX 07/16: 5cm masslike opacity at the left apex -CXR (07/19): Stable from previous imaging (6) Focal infarction of brain ICD Codes: I63.9 - Cerebral infarction, unspecified Plan: Brain MRI with findings consistent with small focal infarcts, likely embolic in the right occipital lobe and right parietal high convexities near the vertex. Based on patient history, likely have been present for 2 weeks+ -Head CT within normal limits -Neck MRA normal -PT and OT consulted -Continue statin -Monitor vitals, keep BP controlled (7) Hypokalemia ICD Codes: E87.6 - Hypokalemia Status: Acute Plan: IV fluids with potassium supplementation -Pt given potassium phosphate [id number] -magnesium (2.8) and phosphorus (3.6) -Continue to monitor (8) UTI (urinary tract infection) ICD Codes: N39.0 - Urinary tract infection, site not specified Status: Resolved Plan: -Pt with suprapubic catheter, capped -Urethral catheter in place, urine output appropriate (based on 0.5 mL/kg/h) -UA positive -Urine culture: No growth in 48 hours -See antibiotics above (9) Elevated LFTs ICD Codes: R79.89 - Other specified abnormal findings of blood chemistry Plan: -f/u CMP -Continue to monitor (10) Abdominal pain ICD Codes: R10.9 - Unspecified abdominal pain Plan: Patient with complaints of abdominal pain this morning. Slight abdominal distention and hyperactive bowel sounds heard on exam today. Denies nausea or vomiting. Follow up [facility] -Patient stated he had bowel movement yesterday (11) Nutrition, metabolism, and development symptoms ICD Codes: R63.8 - Other symptoms and signs concerning food and fluid intake Plan: Fluids: Decreased to 125 mls/hr Electrolytes: low K, replete as needed. Spoke to pharmacy so that patient can receive 40 mEq KCl as piggyback on IV fluids over 4 hours. Follow-up CMP tomorrow morning. Nutrition: regular diet DVT ppx: lovenox (Sarah Webb MD, R1) Problem Qualifiers (1) UTI (urinary tract infection): Qualified Codes: T83.511S - Infection and inflammatory reaction due to indwelling urethral catheter, sequela; N39.0 - Urinary tract infection, site not specified Sarah Webb MD, R1 Jul 19, 2017 11:55 Van Rand MD Jul 21, 2017 12:56
--- NOTE | 2017-07-19 14:26 | CF ---
cc: WILY CULVER PROCEDURE PERFORMED Transesophageal echocardiogram INDICATIONS Sepsis, bacteremia, evaluation for endocarditis. PROCEDURE After the patient was sedated by anesthesia, a transesophageal probe was placed without difficulty. Tomographic images were obtained. Left ventricular function was borderline normal. Mitral valve was structurally normal, but there was evidence of a small mobile mitral valve vegetation attached to the posterior leaflet of the mitral valve measuring 0.5 cm in diameter. There was evidence of trace mitral regurgitation. No evidence of mitral stenosis. The aortic valve was structurally normal. There was no evidence of aortic stenosis. There was evidence of trace aortic insufficiency. The tricuspid valve was structurally normal. There was no evidence of stenosis, but there is evidence of trace tricuspid regurgitation. Pulmonary valve was visualized and there was no evidence of pulmonary stenosis or regurgitation. The left atrial appendage was visualized and there was no evidence of thrombus. DIAGNOSIS 1. Small mitral valve vegetation. 2. Borderline normal left ventricular systolic function. 3. Trace mitral regurgitation. 4. Trace tricuspid regurgitation. 5. Trace pulmonary insufficiency. IMPRESSION Mitral valve endocarditis. MD RITU Armas/MANDY /2:13 PM /2:12 PM ACE
--- NOTE | 2017-07-19 14:34 | RADRPT ---
EXAM DATE/TIME: 07/19/2017 14:08 [facility] COMPARISON: ABDOMEN K[facility] ONLY, August 26, 2015, 10:28. INDICATIONS : Abdominal pain. Distention. MEDICAL HISTORY : None. SURGICAL HISTORY : None. ENCOUNTER: Subsequent ACUITY: 3 days PAIN SCORE: 5/10 LOCATION: Bilateral Abdomen. FINDINGS: There is moderate gaseous distention of large and small bowel. Large bowel dilated to 10 cm. Small bowel dilated to 3.6 L. Rectal tube is evident There is decompression of the sigmoid colon. The portion of the bony skeleton visualized is unremarkable. CONCLUSION: Bowel distention as described above. There is no free air. Fredy Vega MD FACR on July 19, 2017 at 14:31 Board Certified Radiologist. This report was verified electronically.
[2017-07-19 16:21] VITALS: BP 127/69; PULSE 81; RESP 20; TEMP 98.5; O2SAT 100
[2017-07-19] MEDS: POTASSIUM CHLOR 10 MEQ PREMIX 100 ML IV SCH ×3 (16:58→20:39)
--- NOTE | 2017-07-19 19:08 | PD.CARD.PN ---
Subjective Subjective Remarks C/o L sided CP, mild SOB Objective Medications Current Medications Medications (Trade) Dose Ordered Sig/Briseyda Route Start Time Stop Time Status Last Admin (NS Flush) 2 ml UNSCH PRN IV FLUSH 07/16/17 09:45 (NS Flush) 2 ml BID IV FLUSH 07/16/17 21:00 07/19/17 09:32 (Zofran Inj) 4 mg Q6H PRN IVP 07/16/17 09:45 (Lovenox Inj) 40 mg Q24H SQ 07/16/17 11:00 07/16/17 13:57 (Milk Of Magnesia Liq) 30 ml Q12H PRN PO 07/16/17 09:45 (Senokot) 17.2 mg Q12H PRN PO 07/16/17 09:45 (Dulcolax Supp) 10 mg DAILY PRN RECTAL 07/16/17 09:45 (Lactulose Liq) 30 ml DAILY PRN PO 07/16/17 09:45 Potassium Chloride/Sodium Chloride 1,000 ml @ 125 mls/hr Q8H IV 07/16/17 09:45 07/19/17 12:07 Pharmacy Profile Note 0 ml @ 0 mls/hr UNSCH OTHER 07/16/17 09:45 (Toradol Inj) 30 mg Q6H PRN IV PUSH 07/16/17 19:00 07/21/17 18:59 07/17/17 14:34 (Narcan Inj) 0.4 mg UNSCH PRN IV PUSH 07/16/17 19:00 (Lipitor) 40 mg HS PO 07/17/17 21:00 07/18/17 19:50 ([place] 5-325 Mg) 1 tab Q6H PRN PO 07/17/17 16:30 07/19/17 09:40 Piperacillin Sod/ Tazobactam Sod 100 ml @ 200 mls/hr Q6H IV 07/17/17 20:00 07/19/17 14:03 Vancomycin HCl 2250 mg/Sodium Chloride 522.5 ml @ 258.75 mls/ hr Q18H IV 07/19/17 02:00 07/19/17 01:59 Miscellaneous Information SPECIFIC LAB TO BE DRAWN:VANCOMYCIN TROUGH DATE TO... ONCE ONCE .XX 07/21/17 07:45 07/21/17 07:46 Potassium Chloride 100 ml @ 100 mls/hr Q1H IV 07/19/17 17:00 07/19/17 20:59 07/19/17 16:58 Vital Signs / I&O Vital Signs Date Time Temp Pulse Resp B/P (MAP) Pulse Ox O2 Delivery O2 Flow Rate FiO2 07/19/17 16:21 98.5 81 20 127/69 (88) 100 07/19/17 12:08 16 07/19/17 11:51 98.0 79 20 166/78 (107) 98 07/19/17 07:57 98.4 78 20 168/77 (107) 98 07/19/17 04:52 97.2 80 18 162/73 (102) 99 07/19/17 00:00 97.6 84 18 154/81 (105) 97 07/18/17 20:00 98.0 81 17 109/72 (84) 95 I/O 07/18/17 07/18/17 07/18/17 07/19/17 07/19/17 07/19/17 07:00 15:00 23:00 07:00 15:00 23:00 Intake Total 370 ml Output Total 600 ml 950 ml 1000 ml Balance 370 ml -600 ml -950 ml -1000 ml IV Total 370 ml Output Urine Total 600 ml 950 ml 1000 ml # Bowel Movements 2 2 1 3 Physical Exam GENERAL: In NAD. SKIN: Warm and dry. HEAD: Normocephalic. EYES: No scleral icterus. No injection or drainage. NECK: Supple, trachea midline. No JVD or lymphadenopathy. CARDIOVASCULAR: Regular rate and rhythm without murmurs, gallops, or rubs. RESPIRATORY: Breath sounds equal bilaterally. No accessory muscle use. GASTROINTESTINAL: Abdomen soft, non-tender, nondistended. MUSCULOSKELETAL: No cyanosis, mild edema. Laboratory Laboratory Tests Test 07/19/17 07:45 White Blood Count 17.2 TH/MM3 Red Blood Count 3.70 MIL/MM3 Hemoglobin 8.1 GM/DL Hematocrit 25.2 % Mean Corpuscular Volume 68.1 FL Mean Corpuscular Hemoglobin 21.9 PG Mean Corpuscular Hemoglobin Concent 32.2 % Red Cell Distribution Width 23.3 % Platelet Count 462 TH/MM3 Mean Platelet Volume 7.0 FL Neutrophils (%) (Auto) 72.2 % Lymphocytes (%) (Auto) 17.2 % Monocytes (%) (Auto) 8.4 % Eosinophils (%) (Auto) 1.5 % Basophils (%) (Auto) 0.7 % Neutrophils # (Auto) 12.4 TH/MM3 Lymphocytes # (Auto) 3.0 TH/MM3 Monocytes # (Auto) 1.4 TH/MM3 Eosinophils # (Auto) 0.3 TH/MM3 Basophils # (Auto) 0.1 TH/MM3 CBC Comment DIFF FINAL Differential Comment Blood Urea Nitrogen 10 MG/DL Creatinine 0.97 MG/DL Random Glucose 91 MG/DL Calcium Level 8.0 MG/DL Sodium Level 142 MEQ/L Potassium Level 3.1 MEQ/L Chloride Level 110 MEQ/L Carbon Dioxide Level 23.6 MEQ/L Anion Gap 8 MEQ/L Estimat Glomerular Filtration Rate 96 ML/MIN Imaging Last 24 hours Impressions Chest X-Ray 07/19/17 0600 Signed Impressions: Service Date/Time: Wednesday, July 19, 2017 09:05 - CONCLUSION: Consolidative masslike opacity left upper lobe stable from CT scan 07/16/2017. Fredy Vega MD FACR Abdomen X-Ray 07/19/17 0000 Signed Impressions: Service Date/Time: Wednesday, July 19, 2017 14:08 - CONCLUSION: Bowel distention as described above. There is no free air. 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 Continue abxs as per ID. No new cardiac issues. Continue current program. Increase activity, PT. Trevon Cordero MD Jul 19, 2017 19:08
[2017-07-19 20:40] VITALS: BP 118/81; PULSE 88; RESP 18; TEMP 98.4; O2SAT 99
[2017-07-19] MEDS: ATORVASTATIN 40 MG TAB PO SCH (20:40)
[2017-07-20 00:20] VITALS: BP 165/60; PULSE 80; RESP 18; TEMP 97.6; O2SAT 99
[2017-07-20] MEDS: POTASSIUM CHLOR 10 MEQ PREMIX 100 ML IV SCH (01:33)
[2017-07-20] MEDS: NS + KCL 20 MEQ INJ 1,000 ML IV SCH ×4 (03:20→21:08)
[2017-07-20] MEDS: PIPERACIL-TAZO 4.5 GM PREMIX 100 ML IV SCH ×3 (03:21→13:36)
[2017-07-20 05:20] VITALS: BP 163/71; PULSE 83; RESP 18; TEMP 97.9; O2SAT 98
[2017-07-20 08:00] VITALS: BP 155/70; PULSE 78; RESP 16; TEMP 97.9; O2SAT 95
[2017-07-20] MEDS: SODIUM CHLORIDE 0.9% FLUSH 10 ML FLUSH IV FLUSH SCH ×2 (08:39→21:00)
[2017-07-20 09:33] LABS: AUTOMATED NEUTROPHIL # 12.1 TH/MM3 (1.8-7.7); BASOPHIL # 0.1 TH/MM3 (0-0.2); BASOPHIL % 0.8 % (0.0-2.0); EOSINOPHIL # 0.2 TH/MM3 (0-0.4); EOSINOPHIL % 1.5 % (0.0-4.0); HEMOGLOBIN 8.3 GM/DL (13.0-17.0); LYMPH % 14.8 % (9.0-44.0); LYMPHOCYTE # 2.4 TH/MM3 (1.0-4.8); MEAN CELL VOLUME 69.2 FL (80.0-100.0); MEAN CORPUSCULAR HEMOGLOBIN 21.3 PG (27.0-34.0); MEAN CORPUSCULAR HGB CONC 30.7 % (32.0-36.0); MONO % 7.3 % (0.0-8.0); MONOCYTE # 1.2 TH/MM3 (0-0.9); NEUT % 75.6 % (16.0-70.0); PLATELET COUNT 413 TH/MM3 (150-450); RED CELL DISTRIBUTION WIDTH 23.4 % (11.6-17.2); WHITE BLOOD COUNT 16.1 TH/MM3 (4.0-11.0)
--- NOTE | 2017-07-20 09:38 | HHI.FPPN ---
Subjective Remarks And examined this morning. Patient continues to complain of pain along his left side, and he states it has gotten worse in the last 24 hours. He states his pain is 10 out of 10 and is the most severe at his left anterior shoulder area. This is similar to previous complaints. Patient denies any chest pain or difficulty breathing. Patient denies any coughing or fevers. Patient denies any abdominal pain. Objective Vitals Vital Signs Date Time Temp Pulse Resp B/P (MAP) Pulse Ox O2 Delivery O2 Flow Rate FiO2 07/20/17 05:20 97.9 83 18 163/71 (101) 98 07/20/17 00:20 97.6 80 18 165/60 (95) 99 07/19/17 20:40 98.4 88 18 118/81 (93) 99 07/19/17 16:21 98.5 81 20 127/69 (88) 100 07/19/17 12:08 16 07/19/17 11:51 98.0 79 20 166/78 (107) 98 I/O 07/19/17 07/19/17 07/19/17 07/20/17 07/20/17 07/20/17 07:00 15:00 23:00 07:00 15:00 23:00 Intake Total 120 ml Output Total 950 ml 1000 ml 2200 ml Balance -950 ml -1000 ml -2080 ml Intake Oral 120 ml Output Urine Total 950 ml 1000 ml 2200 ml # Bowel Movements 1 3 1 Result Diagram: 07/19/17 0745 07/19/17 0745 Objective Remarks GENERAL: Patient awake laying in bed SKIN: . Cool and dry. HEAD: Atraumatic. Normocephalic. EYES: Extraocular motions intact. No scleral icterus. No injection or drainage. ENT: Nose without bleeding, purulent drainage or septal hematoma. Airway patent. NECK: Trachea midline. No JVD or lymphadenopathy. Supple, nontender, no meningeal signs. Pt with scar from prior surgery on posterior neck CARDIOVASCULAR: Regular rate and rhythm without murmurs, gallops, or rubs. RESPIRATORY: Anterior auscultation; upper respiratory noises are auscultated, equal bilaterally, diminished breath sounds in upper left lobe posteriorly GASTROINTESTINAL: Abdomen soft, non-tender,distended. Supra pubic catheter in place MUSCULOSKELETAL: Extremities without clubbing, cyanosis, or edema. No tenderness to palpation over her shoulder or left side of body. His pain cannot be reproduced by palpation. Pt reports left hip pain with knee flection. No joint tenderness, effusion, or edema noted. No calf tenderness. Negative Homans sign bilaterally. Normal sensation. NEUROLOGICAL: Cranial nerves II through XII intact. 5/5 muscle strength on R Upper Ext. 3/5 on Right LE, 4/5 on L upper ext, 2/5 on Left LE (same as previous exams). Normal speech. A/P Assessment and Plan Patient is 57-year-old M with PMHx BPH and s/p prostatectomy (on 05/2017) presented to the ED with 2 wks of progressive worsening left side pain and weakness associated with GAINES. Urologist Dr. Patel, who completed the surgery. Pt found to have Left apical lung mass with supraclavicular extension on imaging and focal embolic in in brain MRI. Pt is currently being treated for MRSA bacteremia. ALEX results positive for small mitral valve vegetation. Discharge Planning time frame unclear Problem List: (1) Bacteremia due to Gram-positive bacteria ICD Codes: R78.81 - Bacteremia Plan: Blood cultures on admission (07/16): Positive for MRSA. History of rectal temp of 102.5, elevated ESR 5.9 cm abscess with suspected pneumonia surrounding -Infectious disease consulted, appreciate recommendations; cont Vanc, d/c zosyn, repaeat f/u blood cx on 07/19 , f/u bronchoscopy vs. IR aspiratation of lung abcess vs. pending clinical improvement for further eval MRSA sepsis + on blood cx 07/16, high-grade with embolic brain lesions, likely underlying endocarditis in view of ALEX Appears to have abscess at left lung apex Endocarditis Urine cx negative Embolic stroke with left-sided hemiplegia -Echo negative for endocarditis ALEX results: Mitral valve was structurally normal, but there was evidence of a small mobile mitral valve vegetation. Borderline normal left ventricular systolic function. Trace regurgitation of mitral and tricuspid valve. Trace pulmonary insufficiency (2) Endocarditis ICD Codes: I38 - Endocarditis, valve unspecified Plan: see plan above for bacteremia (3) Left-sided weakness ICD Codes: R53.1 - Weakness Status: Acute Plan: L sided weakeness/severe pain, worse at L shoulder Likely due to embolic stroke versus septic arthritis -neuro checks Q4h -Out of bed with assistance -PT to evaluate, recommendations: Continue physical therapy at rehabilitation and OT therapy. -Will submit OT referral for evaluation Imaging: -MRI lumbar spine: no osteomyelitis, spinal canal stenosis at L3-L5, no significant change from prior study -MRI thoracic spine: multilevel disc spurs at T3-4 and T5-T6 and T9-10, no cord compression, no significant change from prior study -MRI brain: Small focal infarcts likely embolic in the right occipital lobe and right parietal high convexities near the vertex. - Head MRA normal - Echo: EF of 50%. Trace tricuspid valve regurgitation. Otherwise normal echo. - ALEX: small mitral valve vegatation (4) SIRS (systemic inflammatory response syndrome) ICD Codes: R65.10 - Systemic inflammatory response syndrome (SIRS) of non- infectious origin without acute organ dysfunction Plan: On admission Pt with elevated white count at 23.2, Temp:102.1. Lactic acid 1.8. WBC has remained elevated, afebrile since 07/16 -possible source of infection lungs vs cardiac vegetation: Patient found to have lung abscess at left apex and mitral valve vegetation. -See Bacteremia - Cont Vanc & Zosyn -continue to monitor VS (5) Lung mass ICD Codes: R91.8 - Other nonspecific abnormal finding of lung field Status: Acute Plan: Likely abscess related to MRSA bacteremia, less likely neoplasm -CT aspiration to be avoided due to high-risk region of aspiration, will f/u with IR if he is not clinically improving -pulm and ID consulted, recommendation appreciated -- bronchoscopy vs IR bx if no clinical improvement? Chest CT 07/16/17: Complex loculated 5.9 cm fluid attenuation area at the left lung apex most characteristic of an abscess stanchion into the extrathoracic soft tissues superiorly and extending supraclavicular with locules of air present in the supraclavicular region and within the chest lesion. There is a suspected surrounding pneumonia upper left lung. Cannot exclude necrotic neoplasm. This would be amenable to CT guided aspiration. Mildly enlarged mediastinal and left hilar lymph nodes. Trace left pleural effusion. CRX 07/16: 5cm masslike opacity at the left apex -CXR (07/19): Stable from previous imaging (6) Focal infarction of brain ICD Codes: I63.9 - Cerebral infarction, unspecified Plan: Brain MRI with findings consistent with small focal infarcts, likely embolic in the right occipital lobe and right parietal high convexities near the vertex. Based on patient history, likely have been present for 2 weeks+ -Head CT within normal limits -Neck MRA normal -PT and OT consulted -Continue statin -Monitor vitals, keep BP controlled (7) Hypokalemia ICD Codes: E87.6 - Hypokalemia Status: Acute Plan: IV fluids with potassium supplementation -Pt given potassium phosphate [id number] -magnesium (2.8) and phosphorus (3.6) -Continue to monitor (8) UTI (urinary tract infection) ICD Codes: N39.0 - Urinary tract infection, site not specified Status: Resolved Plan: -Pt with suprapubic catheter, capped -Urethral catheter in place, urine output appropriate (based on 0.5 mL/kg/h) -UA positive -Urine culture: No growth in 48 hours -See antibiotics above (9) Elevated LFTs ICD Codes: R79.89 - Other specified abnormal findings of blood chemistry Plan: Slightly elevated AST -f/u CMP -Continue to monitor (10) Abdominal pain ICD Codes: R10.9 - Unspecified abdominal pain Plan: Patient with complaints of abdominal pain and distension yesterday. Denies nausea or vomiting. Pt denies pain today, 4 loose stools in last 24hrs f/u KUB f/u C.Diff (11) Nutrition, metabolism, and development symptoms ICD Codes: R63.8 - Other symptoms and signs concerning food and fluid intake Plan: Fluids: Decreased to 125 mls/hr with K Electrolytes: low K, replete as needed. Spoke to pharmacy so that patient can receive 40 mEq KCl as piggyback on IV fluids over 4 hours. Follow-up CMP tomorrow morning. Nutrition: regular diet DVT ppx: lovenox Problem Qualifiers (1) UTI (urinary tract infection): Qualified Codes: T83.511S - Infection and inflammatory reaction due to indwelling urethral catheter, sequela; N39.0 - Urinary tract infection, site not specified Evangelina Jones MD R2 Jul 20, 2017 09:38
[2017-07-20 09:49] LABS: ALT (GPT) 29 U/L (12-78)
[2017-07-20 09:51] LABS: ALBUMIN 1.5 GM/DL (3.4-5.0); AST (GOT) 44 U/L (15-37); BICARBONATE 23.5 MEQ/L (21.0-32.0); BLOOD UREA NITROGEN 6 MG/DL (7-18); CALCIUM 8.3 MG/DL (8.5-10.1); CHLORIDE 108 MEQ/L (98-107); CREATININE 0.88 MG/DL (0.60-1.30); GLOMERULAR FILTRATION RATE 107 ML/MIN (>89); GLUCOSE,RANDOM 84 MG/DL (74-106); SODIUM (NA) 140 MEQ/L (136-145)
[2017-07-20 09:52] LABS: ALKALINE PHOSPHATASE 84 U/L (45-117); TOTAL BILIRUBIN ADULT 0.7 MG/DL (0.2-1.0)
[2017-07-20] MEDS: ENOXAPARIN SODIUM 40 MG/0.4 ML SYRINGE SQ SCH (11:29)
[2017-07-20] MEDS: ACETAMINOPHEN/HYDROcodone 325 MG/5 MG TAB PO PRN ×2 (11:29→21:11)
[2017-07-20 12:00] VITALS: BP 156/71; PULSE 83; RESP 16; TEMP 97.6; O2SAT 99
--- NOTE | 2017-07-20 13:03 | RADRPT ---
EXAM DATE/TIME: 07/20/2017 12:09 [facility] COMPARISON: CT THORAX W CONTRAST, July 16, 2017, 12:46. INDICATIONS : Left shoulder pain, fever CONTRAST: 20 cc Omniscan (gadodiamide) IV MEDICAL HISTORY : None. SURGICAL HISTORY : Fusion, cervical. Prostatectomy. ENCOUNTER: Initial ACUITY: 1 day PAIN SCORE: 0/10 LOCATION: Left shoulder TECHNIQUE: Multiplanar, multisequence MRI examination was performed with and without contrast. FINDINGS: Abscess is again seen at the left lung apex as was present on prior chest CT of 07/16/2017. Marked misty ma and enhancement in the soft tissues about the left lung apex. Rounded peripherally enhancing fluid collection extends from the lung anteriorly into the anterior chest wall adjacent to the inferior ma rgin of the left sternoclavicular joint. It measures 4.7 cm in axial diameter in this region. There i s then elongated distention of peripherally enhancing fluid in the posterior aspect of the left pecto ralis muscle. This measures 8 cm in length and 1.4 cm in anterior to posterior dimension. Adjacent pe ctoralis muscle edema noted. The soft tissue edema extends laterally into the region of the proximal coracobrachialis muscle and proximal biceps muscle. Small glenohumeral joint effusion. No synovial enhancement of the glenohumeral joint. Bone marrow sig nal is homogeneous and within normal limits. No abnormal bony enhancement. The rotator cuff tendons a re intact. Acromial shape is type II. (curved). Moderate arthritic findings of the acromioclavicular joint. CONCLUSION: 1. Abscess of the left lung apex again seen with anterior and posterior extension of abnormal enhance ment and edema. There is extension of abscess anteriorly just inferior to the sternoclavicular joint. Elongated extension of abscess along the deep margin of the pectoralis muscle also noted. Extension of the edema and enhancement suggesting soft tissue infection in the region of the proximal coracobra chialis and biceps muscles. 2. No evidence of osteomyelitis. 3. Glenohumeral joint within normal limits. 4. Moderate acromioclavicular joint arthrosis. 5. Rotator cuff tendons are intact. Cliff Lomeli MD on July 20, 2017 at 12:52 Board Certified Radiologist. This report was verified electronically.
[2017-07-20] MEDS: POTASSIUM CHLORIDE 10 MEQ CONTROLLED RELEASE TAB PO SCH ×2 (13:35→21:06)
--- NOTE | 2017-07-20 13:38 | RADRPT ---
EXAM DATE/TIME: 07/20/2017 12:54 [facility] COMPARISON: No previous studies available for comparison. INDICATIONS : Patient states that they fell at home and complains of left shoulder pain. MEDICAL HISTORY : None. SURGICAL HISTORY : None. ENCOUNTER: Initial ACUITY: 1 week PAIN SCORE: 8/10 LOCATION: Left Shoulder FINDINGS: 5 views of the left shoulder. Bone alignment within normal limits. No evidence of fracture. Mild hyp ertrophic change of the acromioclavicular joint. Glenohumeral joint within normal limits. CONCLUSION: No evidence of fracture. Cliff Lomeli MD on July 20, 2017 at 13:34 Board Certified Radiologist. This report was verified electronically.
[2017-07-20] MEDS ORDERED: GADODIAMIDE PF 287 MG/ML 20 ML VIAL (for RAD MRI) IVCONTRAST ONE (14:00)
[2017-07-20] MEDS: VANCOMYCIN INJ 2,250 MG in SODIUM CHLORID 0.9% 500 ML INJ 500 ML IV SCH (14:36)
--- NOTE | 2017-07-20 14:47 | HHI.IDPN ---
Subjective Subjective Remarks c/o not feeling well c/o L sided chest pain and tenderness still c/o L side weakness no fever Small vegetation present on mitral valve MRI showed Abscess of the left lung apex again seen with anterior and posterior extension of abnormal enhancement and edema. There is extension of abscess anteriorly just inferior to the sternoclavicular joint. Elongated extension of abscess along the deep margin of the pectoralis muscle also noted. Extension of the edema and enhancement suggesting soft tissue infection in the region of the proximal coracobrachialis and biceps muscles. 2. No evidence of osteomyelitis. 3. Glenohumeral joint within normal limits. 4. Moderate acromioclavicular joint arthrosis. 5. Rotator cuff tendons are intact. Antibiotics zosyn vanco Allergies: Coded Allergies: No Known Allergies (Verified Allergy, Unknown, 07/16/17) Objective . Vital Signs Date Time Temp Pulse Resp B/P (MAP) Pulse Ox O2 Delivery O2 Flow Rate FiO2 07/20/17 12:00 97.6 83 16 156/71 (99) 99 07/20/17 08:00 97.9 78 16 155/70 (98) 95 07/20/17 05:20 97.9 83 18 163/71 (101) 98 07/20/17 00:20 97.6 80 18 165/60 (95) 99 07/19/17 20:40 98.4 88 18 118/81 (93) 99 07/19/17 16:21 98.5 81 20 127/69 (88) 100 07/20/17 07/20/17 07/21/17 15:00 23:00 07:00 Intake Total 250 ml Output Total 1175 ml Balance -925 ml Intake Oral 150 ml IV Total 100 ml Output Urine Total 1175 ml # Bowel Movements 1 . Laboratory Tests Test 07/19/17 07:45 07/20/17 09:00 07/20/17 13:40 White Blood Count 17.2 TH/MM3 16.1 TH/MM3 Red Blood Count 3.70 MIL/MM3 3.90 MIL/MM3 Hemoglobin 8.1 GM/DL 8.3 GM/DL Hematocrit 25.2 % 27.0 % Mean Corpuscular Volume 68.1 FL 69.2 FL Mean Corpuscular Hemoglobin 21.9 PG 21.3 PG Mean Corpuscular Hemoglobin Concent 32.2 % 30.7 % Red Cell Distribution Width 23.3 % 23.4 % Platelet Count 462 TH/MM3 413 TH/MM3 Mean Platelet Volume 7.0 FL 7.0 FL Neutrophils (%) (Auto) 72.2 % 75.6 % Lymphocytes (%) (Auto) 17.2 % 14.8 % Monocytes (%) (Auto) 8.4 % 7.3 % Eosinophils (%) (Auto) 1.5 % 1.5 % Basophils (%) (Auto) 0.7 % 0.8 % Neutrophils # (Auto) 12.4 TH/MM3 12.1 TH/MM3 Lymphocytes # (Auto) 3.0 TH/MM3 2.4 TH/MM3 Monocytes # (Auto) 1.4 TH/MM3 1.2 TH/MM3 Eosinophils # (Auto) 0.3 TH/MM3 0.2 TH/MM3 Basophils # (Auto) 0.1 TH/MM3 0.1 TH/MM3 CBC Comment DIFF FINAL DIFF FINAL Differential Comment Laboratory Tests Test 07/19/17 07:45 07/20/17 09:00 07/20/17 13:40 Blood Urea Nitrogen 10 MG/DL 6 MG/DL Creatinine 0.97 MG/DL 0.88 MG/DL Random Glucose 91 MG/DL 84 MG/DL Calcium Level 8.0 MG/DL 8.3 MG/DL Sodium Level 142 MEQ/L 140 MEQ/L Potassium Level 3.1 MEQ/L 3.2 MEQ/L Chloride Level 110 MEQ/L 108 MEQ/L Carbon Dioxide Level 23.6 MEQ/L 23.5 MEQ/L Anion Gap 8 MEQ/L 9 MEQ/L Estimat Glomerular Filtration Rate 96 ML/MIN 107 ML/MIN Total Protein 7.0 GM/DL Albumin 1.5 GM/DL Alkaline Phosphatase 84 U/L Aspartate Amino Transf (AST/SGOT) 44 U/L Alanine Aminotransferase (ALT/SGPT) 29 U/L Total Bilirubin 0.7 MG/DL Microbiology Date/Time Source Procedure Growth Status 07/19/17 07:45 Blood Peripheral Aerobic Blood Culture - Preliminary NO GROWTH IN 1 DAY Resulted 07/19/17 07:45 Blood Peripheral Anaerobic Blood Culture - Preliminary NO GROWTH IN 1 DAY Resulted 07/19/17 07:40 Blood Peripheral Aerobic Blood Culture - Preliminary NO GROWTH IN 1 DAY Resulted 07/19/17 07:40 Blood Peripheral Anaerobic Blood Culture - Preliminary NO GROWTH IN 1 DAY Resulted Imaging Last Impressions Shoulder X-Ray 1/27/18 0000 Signed Impressions: Service Date/Time: Thursday, July 20, 2017 12:54 - CONCLUSION: No evidence of fracture. Cliff Lomeli MD Shoulder MRI 07/20/17 0000 Signed Impressions: Service Date/Time: Thursday, July 20, 2017 12:09 - CONCLUSION: 1. Abscess of the left lung apex again seen with anterior and posterior extension of abnormal enhancement and edema. There is extension of abscess anteriorly just inferior to the sternoclavicular joint. Elongated extension of abscess along the deep margin of the pectoralis muscle also noted. Extension of the edema and enhancement suggesting soft tissue infection in the region of the proximal coracobrachialis and biceps muscles. 2. No evidence of osteomyelitis. 3. Glenohumeral joint within normal limits. 4. Moderate acromioclavicular joint arthrosis. 5. Rotator cuff tendons are intact. Cliff Lomeli MD Chest X-Ray 07/19/17 0600 Signed Impressions: Service Date/Time: Wednesday, July 19, 2017 09:05 - CONCLUSION: Consolidative masslike opacity left upper lobe stable from CT scan 07/16/2017. Fredy Vega MD FACR Abdomen X-Ray 07/19/17 0000 Signed Impressions: Service Date/Time: Wednesday, July 19, 2017 14:08 - CONCLUSION: Bowel distention as described above. There is no free air. Fredy Vega MD FACR Neck Magnetic Resonance Angiography 07/17/17 0000 Signed Impressions: Service Date/Time: Monday, July 17, 2017 09:00 - CONCLUSION: 1. Normal carotid arteries. Tahir Miramontes MD Head Magnetic Resonance Angiography 07/17/17 0000 Signed Impressions: Service Date/Time: Monday, July 17, 2017 09:00 - CONCLUSION: 1. No large vessel aneurysm or stenosis. 2. Normal variants as described above. Tahir Miramontes MD Thoracic Spine MRI 07/16/17 0000 Signed Impressions: Service Date/Time: Sunday, July 16, 2017 10:42 - CONCLUSION: 1. Multilevel disc spurs at T3-4, T5-T6 scan, most significantly at T9-10. Despite degenerative changes, there is no cord compromise at any thoracic level. No significant change from prior. 2. Possible loculated effusion in the left lung apex. Bonifacio Echeverria MD Lumbar Spine MRI 07/16/17 Signed Impressions: Service Date/Time: Sunday, July 16, 2017 10:42 - CONCLUSION: 1. Stable CT scan of the lumbar spine compared to the prior examination of 07/29/2015. 2. No evidence to suggest discitis or osteomyelitis. 3. There continues to be spinal canal stenosis at L3-4 and L4-5 without significant change compared to the prior study. Fahad Garrido MD Head CT 07/16/17 Signed Impressions: Service Date/Time: Sunday, July 16, 2017 07:04 - CONCLUSION: Unremarkable study. K. Paul Lind MD Chest CT 07/16/17 Signed Impressions: Service Date/Time: Sunday, July 16, 2017 12:46 - CONCLUSION: 1. Complex loculated 5.9 cm fluid attenuation area at the left lung apex most characteristic of an abscess with extension into the extrathoracic soft tissues superiorly and extending supraclavicular with locules of air present in the supraclavicular region and within the chest lesion. There is a suspected surrounding pneumonia upper left lung. Cannot exclude necrotic neoplasm. This would be amenable to CT-guided aspiration. 2. Mildly enlarged mediastinal and left hilar lymph nodes. 3. Trace left pleural effusion. Ryan Byrnes MD Cervical Spine MRI 07/16/17 Signed Impressions: Service Date/Time: Sunday, July 16, 2017 10:42 - CONCLUSION: 1. Stable overall appearance of the cervical spine compared to the prior examination of 07/28/2015. 2. Specifically, no evidence to suggest discitis or osteomyelitis. Fahad Garrido MD Brain MRI 07/16/17 0000 Signed Impressions: Service Date/Time: Sunday, July 16, 2017 10:42 - CONCLUSION: 1. 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 Vasquez Thayer MD Abdomen/Pelvis CT 07/16/17 0000 Signed Impressions: Service Date/Time: Sunday, July 16, 2017 12:49 - CONCLUSION: 1. Suprapubic catheter present presumably passing into bladder with thickened bladder wall. There is a Saxena catheter present with the balloon in the lower bladder or possibly within the prostatic region. Patient is reportedly status post prostatectomy. 2. Diffuse ileus. Stable renal cysts. 3. Mild inflammatory changes left lung base. Ryan Byrnes MD Physical Exam CONSTITUTIONAL/GENERAL: This is an adequately nourished patient, in no apparent distress. TUBES/LINES/DRAINS: SKIN: No jaundice, rashes, or lesions. Skin temperature appropriate. Not diaphoretic. CARDIOVASCULAR: Regular rate and rhythm + some sysrtolic murmurs, gallops, or rubs. No JVD. Peripheral pulses symmetric. RESPIRATORY/CHEST: Symmetric, unlabored respirations. Clear to auscultation. Breath sounds equal bilaterally. No wheezes, rales, or rhonchi. CHEST with ill defined edema, tenderness in L upper aspect GASTROINTESTINAL: Abdomen soft, non-tender, nondistended. No hepato-splenomegaly , or palpable masses. No guarding. Bowel sounds present. GENITOURINARY: Without palpable bladder distension. SP catheter in place wiith cloudy and blood tinged urine MUSCULOSKELETAL: Extremities without clubbing, cyanosis, + 1 edema. No joint tenderness or effusion noted. No calf tenderness. No mottling or clubbing. LYMPHATICS: No palpable cervical or supraclavicular adenopathy. NEUROLOGICAL: Awake and alert. Motor and sensory grossly within normal limits. Follows commands. Less confused, speech is clear but not always coherent LUE weakness PSYCHIATRIC: No obvious anxiety/depression. no apparent hallucinations or other psychotic thought process. Assessment & Plan Remarks MRSA sepsis, high grade with embolic brain lesions, liekly undelying endocarditis Complex loculated 5.9 cm fluid attenuation area at the left lung apex most characteristic of an abscess with extension into the extrathoracic soft tissues CT from 07/[address] Echeverria - perry Andre: no extention outside parenchima MRI showed again Abscess of the left lung apex again seen with anterior and posterior extension of abnormal enhancement and edema. There is extension of abscess anteriorly just inferior to the sternoclavicular joint. Elongated extension of abscess along the deep margin of the pectoralis muscle also noted. 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
[2017-07-20 15:01] LABS: AUTOMATED NEUTROPHIL # 11.3 TH/MM3 (1.8-7.7); BASOPHIL # 0.1 TH/MM3 (0-0.2); BASOPHIL % 0.9 % (0.0-2.0); EOSINOPHIL # 0.2 TH/MM3 (0-0.4); EOSINOPHIL % 1.4 % (0.0-4.0); HEMATOCRIT 26.7 % (39.0-51.0); HEMOGLOBIN 8.4 GM/DL (13.0-17.0); LYMPH % 17.5 % (9.0-44.0); LYMPHOCYTE # 2.8 TH/MM3 (1.0-4.8); MEAN CELL VOLUME 68.5 FL (80.0-100.0); MEAN CORPUSCULAR HEMOGLOBIN 21.6 PG (27.0-34.0); MEAN CORPUSCULAR HGB CONC 31.5 % (32.0-36.0); MEAN PLATELET VOLUME 7.1 FL (7.0-11.0); MONO % 8.5 % (0.0-8.0); MONOCYTE # 1.3 TH/MM3 (0-0.9); NEUT % 71.7 % (16.0-70.0); PLATELET COUNT 490 TH/MM3 (150-450); RED BLOOD COUNT 3.89 MIL/MM3 (4.50-5.90); RED CELL DISTRIBUTION WIDTH 23.6 % (11.6-17.2); WHITE BLOOD COUNT 15.8 TH/MM3 (4.0-11.0)
[2017-07-20 15:10] LABS: ALBUMIN 1.7 GM/DL (3.4-5.0); ALT (GPT) 33 U/L (12-78); AST (GOT) 48 U/L (15-37); BICARBONATE 25.8 MEQ/L (21.0-32.0); BLOOD UREA NITROGEN 7 MG/DL (7-18); CALCIUM 7.6 MG/DL (8.5-10.1); CHLORIDE 109 MEQ/L (98-107); CREATININE 0.97 MG/DL (0.60-1.30); GLOMERULAR FILTRATION RATE 96 ML/MIN (>89); GLUCOSE,RANDOM 88 MG/DL (74-106); SODIUM (NA) 141 MEQ/L (136-145)
[2017-07-20 15:12] LABS: ALKALINE PHOSPHATASE 94 U/L (45-117); TOTAL BILIRUBIN ADULT 0.6 MG/DL (0.2-1.0); TOTAL PROTEIN 7.8 GM/DL (6.4-8.2)
--- NOTE | 2017-07-20 15:53 | PD.CARD.PN ---
Subjective Subjective Remarks No CP or SOB Objective Medications Current Medications Medications (Trade) Dose Ordered Sig/Briseyda Route Start Time Stop Time Status Last Admin (NS Flush) 2 ml UNSCH PRN IV FLUSH 07/16/17 09:45 (NS Flush) 2 ml BID IV FLUSH 07/16/17 21:00 07/19/17 20:40 (Zofran Inj) 4 mg Q6H PRN IVP 07/16/17 09:45 (Lovenox Inj) 40 mg Q24H SQ 07/16/17 11:00 07/20/17 11:29 (Milk Of Magnesia Liq) 30 ml Q12H PRN PO 07/16/17 09:45 (Senokot) 17.2 mg Q12H PRN PO 07/16/17 09:45 (Dulcolax Supp) 10 mg DAILY PRN RECTAL 07/16/17 09:45 (Lactulose Liq) 30 ml DAILY PRN PO 07/16/17 09:45 Potassium Chloride/Sodium Chloride 1,000 ml @ 125 mls/hr Q8H IV 07/16/17 09:45 07/20/17 05:39 Pharmacy Profile Note 0 ml @ 0 mls/hr UNSCH OTHER 07/16/17 09:45 (Toradol Inj) 30 mg Q6H PRN IV PUSH 07/16/17 19:00 07/21/17 18:59 07/17/17 14:34 (Narcan Inj) 0.4 mg UNSCH PRN IV PUSH 07/16/17 19:00 (Lipitor) 40 mg HS PO 07/17/17 21:00 07/19/17 20:40 (Newton 5-325 Mg) 1 tab Q6H PRN PO 07/17/17 16:30 07/20/17 11:29 Vancomycin HCl 2250 mg/Sodium Chloride 522.5 ml @ 258.75 mls/ hr Q18H IV 07/19/17 02:00 07/20/17 14:36 Miscellaneous Information SPECIFIC LAB TO BE DRAWN:VANCOMYCIN TROUGH DATE TO... ONCE ONCE .XX 07/21/17 07:45 07/21/17 07:46 (KCl) 40 meq Q12HR PO 07/20/17 12:15 07/20/17 13:35 Vital Signs / I&O Vital Signs Date Time Temp Pulse Resp B/P (MAP) Pulse Ox O2 Delivery O2 Flow Rate FiO2 07/20/17 12:00 97.6 83 16 156/71 (99) 99 07/20/17 08:00 97.9 78 16 155/70 (98) 95 07/20/17 05:20 97.9 83 18 163/71 (101) 98 07/20/17 00:20 97.6 80 18 165/60 (95) 99 07/19/17 20:40 98.4 88 18 118/81 (93) 99 07/19/17 16:21 98.5 81 20 127/69 (88) 100 I/O 07/19/17 07/19/17 07/19/17 07/20/17 07/20/17 07/20/17 07:00 15:00 23:00 07:00 15:00 23:00 Intake Total 120 ml 350 ml Output Total 950 ml 1000 ml 2200 ml 1175 ml Balance -950 ml -1000 ml -2080 ml -825 ml Intake Oral 120 ml 150 ml IV Total 200 ml Output Urine Total 950 ml 1000 ml 2200 ml 1175 ml # Bowel Movements 1 3 1 1 Physical Exam GENERAL: In NAD. SKIN: Warm and dry. HEAD: Normocephalic. EYES: No scleral icterus. No injection or drainage. NECK: Supple, trachea midline. No JVD or lymphadenopathy. CARDIOVASCULAR: Regular rate and rhythm without murmurs, gallops, or rubs. RESPIRATORY: Breath sounds equal bilaterally. No accessory muscle use. GASTROINTESTINAL: Abdomen soft, non-tender, nondistended. MUSCULOSKELETAL: No cyanosis, mild edema. Laboratory Laboratory Tests Test 07/20/17 09:00 07/20/17 13:40 White Blood Count 16.1 TH/MM3 15.8 TH/MM3 Red Blood Count 3.90 MIL/MM3 3.89 MIL/MM3 Hemoglobin 8.3 GM/DL 8.4 GM/DL Hematocrit 27.0 % 26.7 % Mean Corpuscular Volume 69.2 FL 68.5 FL Mean Corpuscular Hemoglobin 21.3 PG 21.6 PG Mean Corpuscular Hemoglobin Concent 30.7 % 31.5 % Red Cell Distribution Width 23.4 % 23.6 % Platelet Count 413 TH/MM3 490 TH/MM3 Mean Platelet Volume 7.0 FL 7.1 FL Neutrophils (%) (Auto) 75.6 % 71.7 % Lymphocytes (%) (Auto) 14.8 % 17.5 % Monocytes (%) (Auto) 7.3 % 8.5 % Eosinophils (%) (Auto) 1.5 % 1.4 % Basophils (%) (Auto) 0.8 % 0.9 % Neutrophils # (Auto) 12.1 TH/MM3 11.3 TH/MM3 Lymphocytes # (Auto) 2.4 TH/MM3 2.8 TH/MM3 Monocytes # (Auto) 1.2 TH/MM3 1.3 TH/MM3 Eosinophils # (Auto) 0.2 TH/MM3 0.2 TH/MM3 Basophils # (Auto) 0.1 TH/MM3 0.1 TH/MM3 CBC Comment DIFF FINAL DIFF FINAL Differential Comment Blood Urea Nitrogen 6 MG/DL 7 MG/DL Creatinine 0.88 MG/DL 0.97 MG/DL Random Glucose 84 MG/DL 88 MG/DL Total Protein 7.0 GM/DL 7.8 GM/DL Albumin 1.5 GM/DL 1.7 GM/DL Calcium Level 8.3 MG/DL 7.6 MG/DL Alkaline Phosphatase 84 U/L 94 U/L Aspartate Amino Transf (AST/SGOT) 44 U/L 48 U/L Alanine Aminotransferase (ALT/SGPT) 29 U/L 33 U/L Total Bilirubin 0.7 MG/DL 0.6 MG/DL Sodium Level 140 MEQ/L 141 MEQ/L Potassium Level 3.2 MEQ/L 3.1 MEQ/L Chloride Level 108 MEQ/L 109 MEQ/L Carbon Dioxide Level 23.5 MEQ/L 25.8 MEQ/L Anion Gap 9 MEQ/L 6 MEQ/L Estimat Glomerular Filtration Rate 107 ML/MIN 96 ML/MIN Imaging Last 24 hours Impressions Shoulder X-Ray 07/20/17 0000 Signed Impressions: Service Date/Time: Thursday, July 20, 2017 12:54 - CONCLUSION: No evidence of fracture. Cliff Lomeli MD Shoulder MRI 07/20/17 0000 Signed Impressions: Service Date/Time: Thursday, July 20, 2017 12:09 - CONCLUSION: 1. Abscess of the left lung apex again seen with anterior and posterior extension of abnormal enhancement and edema. There is extension of abscess anteriorly just inferior to the sternoclavicular joint. Elongated extension of abscess along the deep margin of the pectoralis muscle also noted. Extension of the edema and enhancement suggesting soft tissue infection in the region of the proximal coracobrachialis and biceps muscles. 2. No evidence of osteomyelitis. 3. Glenohumeral joint within normal limits. 4. Moderate acromioclavicular joint arthrosis. 5. Rotator cuff tendons are intact. 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 ALEX showed a small MV vegetation. Continue prolonged antibiotic tx as per ID. Continue current program. Increase activity, PT. D/w pt and family. Trevon Cordero MD Jul 20, 2017 15:53
[2017-07-20 16:00] VITALS: BP 125/77; PULSE 87; RESP 16; TEMP 97.8; O2SAT 98
[2017-07-20 20:00] VITALS: BP 153/71; PULSE 89; RESP 18; TEMP 98; O2SAT 99
[2017-07-20] MEDS: ATORVASTATIN 40 MG TAB PO SCH (21:08)
[2017-07-21] VITALS: BP 162/72; PULSE 88; RESP 19; TEMP 98.1; O2SAT 98
[2017-07-21 04:00] VITALS: BP 162/72; PULSE 83; RESP 17; TEMP 98.2; O2SAT 98
[2017-07-21] MEDS: NS + KCL 20 MEQ INJ 1,000 ML IV SCH (05:45)
[2017-07-21 07:33] LABS: AUTOMATED NEUTROPHIL # 10.4 TH/MM3 (1.8-7.7); BASOPHIL # 0.2 TH/MM3 (0-0.2); BASOPHIL % 1.1 % (0.0-2.0); EOSINOPHIL # 0.2 TH/MM3 (0-0.4); EOSINOPHIL % 1.6 % (0.0-4.0); HEMATOCRIT 23.5 % (39.0-51.0); HEMOGLOBIN 7.6 GM/DL (13.0-17.0); LYMPHOCYTE # 1.9 TH/MM3 (1.0-4.8); MEAN CELL VOLUME 68.1 FL (80.0-100.0); MEAN CORPUSCULAR HEMOGLOBIN 22.1 PG (27.0-34.0); MEAN CORPUSCULAR HGB CONC 32.5 % (32.0-36.0); MEAN PLATELET VOLUME 6.9 FL (7.0-11.0); MONO % 8.2 % (0.0-8.0); MONOCYTE # 1.1 TH/MM3 (0-0.9); NEUT % 75.1 % (16.0-70.0); PLATELET COUNT 405 TH/MM3 (150-450); RED BLOOD COUNT 3.44 MIL/MM3 (4.50-5.90); RED CELL DISTRIBUTION WIDTH 23.4 % (11.6-17.2); WHITE BLOOD COUNT 13.9 TH/MM3 (4.0-11.0)
[2017-07-21 07:43] LABS: INTERNATIONAL NORMALIZED RATIO 1.2 RATIO; PROTHROMBIN TIME - PATIENT 12.1 SEC (9.8-11.6)
[2017-07-21] MEDS ORDERED: PHARMACY ORDERED LAB ONE (07:45)
[2017-07-21 07:47] LABS: ALBUMIN 1.5 GM/DL (3.4-5.0); AST (GOT) 51 U/L (15-37); BICARBONATE 23.4 MEQ/L (21.0-32.0); BLOOD UREA NITROGEN 10 MG/DL (7-18); CALCIUM 7.8 MG/DL (8.5-10.1); CHLORIDE 114 MEQ/L (98-107); CREATININE 1.92 MG/DL (0.60-1.30); GLOMERULAR FILTRATION RATE 44 ML/MIN (>89); GLUCOSE,RANDOM 88 MG/DL (74-106); SODIUM (NA) 144 MEQ/L (136-145)
[2017-07-21 07:53] LABS: ALKALINE PHOSPHATASE 79 U/L (45-117); ALT (GPT) 32 U/L (12-78); TOTAL BILIRUBIN ADULT 0.5 MG/DL (0.2-1.0); TOTAL PROTEIN 7.3 GM/DL (6.4-8.2)
[2017-07-21 08:00] VITALS: BP 188/88; PULSE 92; RESP 18; TEMP 97.3; O2SAT 99
[2017-07-21] MEDS: VANCOMYCIN INJ 2,250 MG in SODIUM CHLORID 0.9% 500 ML INJ 500 ML IV SCH ×2 (08:00→08:46)
[2017-07-21] MEDS: POTASSIUM CHLORIDE 10 MEQ CONTROLLED RELEASE TAB PO SCH ×2 (08:46→22:39)
[2017-07-21] MEDS: SODIUM CHLORIDE 0.9% FLUSH 10 ML FLUSH IV FLUSH SCH ×2 (08:47→21:00)
--- NOTE | 2017-07-21 10:55 | RADRPT ---
EXAM DATE/TIME: 07/21/2017 10:28 [facility] COMPARISON: CT THORAX W CONTRAST, July 16, 2017, 12:46. CHEST PA & LAT, July 19, 018, 9:05. INDICATIONS : Short of Breath MEDICAL HISTORY : None. SURGICAL HISTORY : None. ENCOUNTER: Subsequent ACUITY: 4 - 6 days PAIN SCORE: 0/10 LOCATION: chest FINDINGS: There is a area of consolidation involving the left upper lobe with volume loss identified within the left hemithorax. Progressive well-defined airspace opacities identified within the remainder of the left hemithorax. The right hemithorax is grossly clear. Heart size is normal. CONCLUSION: Over wall worsening lung exam with persistent complete opacification of the left uppe r lobe and progressive volume loss with increased parenchymal density within the remainder of the lef t lower lobe. Lida Eric MD on July 21, 2017 at 10:50 Board Certified Radiologist. This report was verified electronically.
[2017-07-21] MEDS: ENOXAPARIN SODIUM 40 MG/0.4 ML SYRINGE SQ SCH (11:40)
[2017-07-21 12:00] VITALS: BP 170/79; PULSE 90; RESP 18; TEMP 98.2; O2SAT 97
--- NOTE | 2017-07-21 12:54 | HHI.FPPN ---
Subjective Remarks Patient seen and examined at bedside. Not acute events overnight. Patient continues to complain of pain along his left side,more pronounce on Left shoulder. Less pain on Left Leg. Pt stated he has had 8 episodes of diarrhea since last night. Denies abdominal pain, CP or SOB. (Sarah Webb MD, R1) Objective Vitals Vital Signs Date Time Temp Pulse Resp B/P (MAP) Pulse Ox O2 Delivery O2 Flow Rate FiO2 07/21/17 12:00 98.2 90 18 170/79 (109) 97 07/21/17 08:00 97.3 92 18 188/88 (121) 99 07/21/17 04:00 98.2 83 17 162/72 (102) 98 07/21/17 00:00 98.1 88 19 162/72 (102) 98 07/20/17 20:00 98.0 89 18 153/71 (98) 99 07/20/17 16:00 97.8 87 16 125/77 (93) 98 I/O 07/20/17 07/20/17 07/20/17 07/21/17 07/21/17 07/21/17 07:00 15:00 23:00 07:00 15:00 23:00 Intake Total 120 ml 350 ml Output Total 2200 ml 1175 ml 1650 ml 1200 ml Balance -2080 ml -825 ml -1650 ml -1200 ml Intake Oral 120 ml 150 ml IV Total 200 ml Output Urine Total 2200 ml 1175 ml 1650 ml 1200 ml # Bowel Movements 1 1 0 0 (Sarah Webb MD, R1) Result Diagram: 07/21/17 0700 07/21/17 0700 Imaging Last Impressions Chest X-Ray 07/21/17 0600 Signed Impressions: Service Date/Time: Friday, July 21, 2017 10:28 - CONCLUSION: Over wall worsening lung exam with persistent complete opacification of the left upper lobe and progressive volume loss with increased parenchymal density within the remainder of the left lower lobe. Lida Eric MD Shoulder X-Ray 07/20/17 0000 Signed Impressions: Service Date/Time: Thursday, July 20, 2017 12:54 - CONCLUSION: No evidence of fracture. Cliff Lomeli MD Shoulder MRI 07/20/17 0000 Signed Impressions: Service Date/Time: Thursday, July 20, 2017 12:09 - CONCLUSION: 1. Abscess of the left lung apex again seen with anterior and posterior extension of abnormal enhancement and edema. There is extension of abscess anteriorly just inferior to the sternoclavicular joint. Elongated extension of abscess along the deep margin of the pectoralis muscle also noted. Extension of the edema and enhancement suggesting soft tissue infection in the region of the proximal coracobrachialis and biceps muscles. 2. No evidence of osteomyelitis. 3. Glenohumeral joint within normal limits. 4. Moderate acromioclavicular joint arthrosis. 5. Rotator cuff tendons are intact. Cliff Lomeli MD Abdomen X-Ray 07/19/17 0000 Signed Impressions: Service Date/Time: Wednesday, July 19, 2017 14:08 - CONCLUSION: Bowel distention as described above. There is no free air. Fredy Vega MD FACR Neck Magnetic Resonance Angiography 07/17/17 0000 Signed Impressions: Service Date/Time: Monday, July 17, 2017 09:00 - CONCLUSION: 1. Normal carotid arteries. Tahir Miramontes MD Head Magnetic Resonance Angiography 07/17/17 0000 Signed Impressions: Service Date/Time: Monday, July 17, 2017 09:00 - CONCLUSION: 1. No large vessel aneurysm or stenosis. 2. Normal variants as described above. Tahir Miramontes MD Thoracic Spine MRI 07/16/17 0000 Signed Impressions: Service Date/Time: Sunday, July 16, 2017 10:42 - CONCLUSION: 1. Multilevel disc spurs at T3-4, T5-T6 scan, most significantly at T9-10. Despite degenerative changes, there is no cord compromise at any thoracic level. No significant change from prior. 2. Possible loculated effusion in the left lung apex. Bonifacio Echeverria MD Lumbar Spine MRI 07/16/17 0000 Signed Impressions: Service Date/Time: Sunday, July 16, 2017 10:42 - CONCLUSION: 1. Stable CT scan of the lumbar spine compared to the prior examination of 07/29/2015. 2. No evidence to suggest discitis or osteomyelitis. 3. There continues to be spinal canal stenosis at L3-4 and L4-5 without significant change compared to the prior study. Fahad Garrido MD Head CT 07/16/17 0000 Signed Impressions: Service Date/Time: Sunday, July 16, 2017 07:04 - CONCLUSION: Unremarkable study. K. Paul Lind MD Chest CT 07/16/17 0000 Signed Impressions: Service Date/Time: Sunday, July 16, 2017 12:46 - CONCLUSION: 1. Complex loculated 5.9 cm fluid attenuation area at the left lung apex most characteristic of an abscess with extension into the extrathoracic soft tissues superiorly and extending supraclavicular with locules of air present in the supraclavicular region and within the chest lesion. There is a suspected surrounding pneumonia upper left lung. Cannot exclude necrotic neoplasm. This would be amenable to CT-guided aspiration. 2. Mildly enlarged mediastinal and left hilar lymph nodes. 3. Trace left pleural effusion. Ryan Byrnes MD Cervical Spine MRI 07/16/17 0000 Signed Impressions: Service Date/Time: Sunday, July 16, 2017 10:42 - CONCLUSION: 1. Stable overall appearance of the cervical spine compared to the prior examination of 07/28/2015. 2. Specifically, no evidence to suggest discitis or osteomyelitis. Fahad Garrido MD Brain MRI 07/16/17 0000 Signed Impressions: Service Date/Time: Sunday, July 16, 2017 10:42 - CONCLUSION: 1. 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 Vasquez Thayer MD Abdomen/Pelvis CT 07/16/17 0000 Signed Impressions: Service Date/Time: Sunday, July 16, 2017 12:49 - CONCLUSION: 1. Suprapubic catheter present presumably passing into bladder with thickened bladder wall. There is a Saxena catheter present with the balloon in the lower bladder or possibly within the prostatic region. Patient is reportedly status post prostatectomy. 2. Diffuse ileus. Stable renal cysts. 3. Mild inflammatory changes left lung base. Ryan Byrnes MD Objective Remarks GENERAL: Patient awake siting in chair SKIN: . Cool and dry. HEAD: Atraumatic. Normocephalic. EYES: Extraocular motions intact. No scleral icterus. No injection or drainage. ENT: Nose without bleeding, purulent drainage or septal hematoma. Airway patent. NECK: Trachea midline. No JVD or lymphadenopathy. Supple, nontender, no meningeal signs. Pt with scar from prior surgery on posterior neck CARDIOVASCULAR: Regular rate and rhythm without murmurs, gallops, or rubs. RESPIRATORY: Good air movement BL. GASTROINTESTINAL: Abdomen soft, non-tender, non-distended. Supra pubic catheter in place MUSCULOSKELETAL: Extremities without clubbing, cyanosis, or edema. No tenderness to palpation over her shoulder or left side of body. His pain cannot be reproduced by palpation. Pt reports left hip pain with knee flection. No joint tenderness, effusion, or edema noted. No calf tenderness. Negative Homans sign bilaterally. Normal sensation. NEUROLOGICAL: Cranial nerves II through XII intact. 5/5 muscle strength on R Upper Ext. 3/5 on Right LE, 4/5 on L upper ext, 2/5 on Left LE (same as previous exams). Normal speech. (Sarah Webb MD, R1) A/P Assessment and Plan Patient is 57-year-old M with PMHx BPH and s/p prostatectomy (on 05/2017) presented to the ED with 2 wks of progressive worsening left side pain and weakness associated with GAINES. Urologist Dr. Patel, completed the surgery. Pt found to have Left apical lung mass with supraclavicular extension on imaging and focal embolic in in brain MRI. Pt is currently being treated for MRSA bacteremia. ALEX results positive for small mitral valve vegetation. Discharge Planning time frame unclear (Sarah Webb MD, R1) Assessment and Plan Patient seen and examined on the morning of 07/21/17 case reviewed and discussed with resident team. Agree with plan of care is discussed with me and documented in the resident note. (Van Rand MD) Problem List: (1) Bacteremia due to Gram-positive bacteria ICD Codes: R78.81 - Bacteremia Plan: Blood cultures on admission (07/16): Positive for MRSA. History of rectal temp of 102.5, elevated ESR 5.9 cm abscess with suspected pneumonia surrounding -Infectious disease consulted, appreciate recommendations; cont Vanc, d/c zosyn, repeat f/u blood cx on 07/21 , IR aspiration of lung abscess planned for Saturday vs. pending clinical improvement for further eval MRSA sepsis + on blood cx 07/16, high-grade with embolic brain lesions, likely underlying endocarditis in view of ALEX Appears to have abscess at left lung apex Endocarditis Urine cx negative Embolic stroke with left-sided hemiplegia -Echo negative for endocarditis ALEX results: Mitral valve was structurally normal, but there was evidence of a small mobile mitral valve vegetation. Borderline normal left ventricular systolic function. Trace regurgitation of mitral and tricuspid valve. Trace pulmonary insufficiency (2) Endocarditis ICD Codes: I38 - Endocarditis, valve unspecified Plan: see plan above for bacteremia (3) Left-sided weakness ICD Codes: R53.1 - Weakness Status: Acute Plan: L sided weakness/severe pain, worse at L shoulder Likely due to embolic stroke versus septic arthritis -neuro checks Q4h -Out of bed with assistance -PT to evaluate, recommendations: Continue physical therapy at rehabilitation and OT therapy. -Will submit OT referral for evaluation Imaging: -MRI lumbar spine: no osteomyelitis, spinal canal stenosis at L3-L5, no significant change from prior study -MRI thoracic spine: multilevel disc spurs at T3-4 and T5-T6 and T9-10, no cord compression, no significant change from prior study -MRI brain: Small focal infarcts likely embolic in the right occipital lobe and right parietal high convexities near the vertex. - Head MRA normal - Echo: EF of 50%. Trace tricuspid valve regurgitation. Otherwise normal echo. - ALEX: small mitral valve vegetation (4) SIRS (systemic inflammatory response syndrome) ICD Codes: R65.10 - Systemic inflammatory response syndrome (SIRS) of non- infectious origin without acute organ dysfunction Plan: On admission Pt with elevated white count at 23.2, Temp:102.1. Lactic acid 1.8. WBC has remained elevated, afebrile since 07/16 -possible source of infection lungs vs cardiac vegetation: Patient found to have lung abscess at left apex and mitral valve vegetation. -See Bacteremia - Cont Vanc - Zosyn D/c'ed per ID -continue to monitor VS (5) Lung mass ICD Codes: R91.8 - Other nonspecific abnormal finding of lung field Status: Acute Plan: Likely abscess related to MRSA bacteremia, less likely neoplasm -CT aspiration to be avoided due to high-risk region of aspiration, will f/u with IR if he is not clinically improving -pulm and ID consulted, recommendation appreciated -- IR abscess drainage planned for Saturday per ID Chest CT 07/16/17: Complex loculated 5.9 cm fluid attenuation area at the left lung apex most characteristic of an abscess stanchion into the extrathoracic soft tissues superiorly and extending supraclavicular with locules of air present in the supraclavicular region and within the chest lesion. There is a suspected surrounding pneumonia upper left lung. Cannot exclude necrotic neoplasm. This would be amenable to CT guided aspiration. Mildly enlarged mediastinal and left hilar lymph nodes. Trace left pleural effusion. CRX 07/16: 5cm masslike opacity at the left apex -CXR (07/19): Stable from previous imaging (6) Focal infarction of brain ICD Codes: I63.9 - Cerebral infarction, unspecified Plan: Brain MRI with findings consistent with small focal infarcts, likely embolic in the right occipital lobe and right parietal high convexities near the vertex. Based on patient history, likely have been present for 2 weeks+ -Head CT within normal limits -Neck MRA normal -PT and OT consulted -Continue statin -Monitor vitals, keep BP controlled -PRN hydralazine 10 mg po per HTN protocol (7) Hypokalemia ICD Codes: E87.6 - Hypokalemia Status: Acute Plan: IV fluids with potassium supplementation -K WNL today at 3.7 -magnesium (2.8) and phosphorus (3.6) -Continue to monitor (8) UTI (urinary tract infection) ICD Codes: N39.0 - Urinary tract infection, site not specified Status: Resolved Plan: -Pt with suprapubic catheter, capped -Urethral catheter in place, urine output appropriate (based on 0.5 mL/kg/h) -UA positive -Urine culture: No growth in 48 hours -See antibiotics above (9) Elevated LFTs ICD Codes: R79.89 - Other specified abnormal findings of blood chemistry Plan: Slightly elevated AST on admission -stable thus far -f/u CMP -Continue to monitor (10) Abdominal pain ICD Codes: R10.9 - Unspecified abdominal pain Plan: Patient with complaints of abdominal pain and distension yesterday. Denies nausea or vomiting. Pt denies pain today, 4 loose stools in last 24hrs f/u KUB f/u C.Diff (11) Nutrition, metabolism, and development symptoms ICD Codes: R63.8 - Other symptoms and signs concerning food and fluid intake Plan: Fluids: Decreased to 125 mls/hr with K Electrolytes: K WNL, replete as needed. Nutrition: regular diet DVT ppx: lovenox (Sarah Webb MD, R1) Problem Qualifiers (1) UTI (urinary tract infection): Qualified Codes: T83.511S - Infection and inflammatory reaction due to indwelling urethral catheter, sequela; N39.0 - Urinary tract infection, site not specified Sarah Webb MD, R1 Jul 21, 2017 12:54 Van Rand MD Jul 22, 2017 10:35
[2017-07-21 16:00] VITALS: BP 127/68; PULSE 85; RESP 18; TEMP 97.9; O2SAT 99
--- NOTE | 2017-07-21 17:18 | PD.CARD.PN ---
Subjective Subjective Remarks No CP or SOB, feels tired Objective Medications Current Medications Medications (Trade) Dose Ordered Sig/Briseyda Route Start Time Stop Time Status Last Admin (NS Flush) 2 ml UNSCH PRN IV FLUSH 07/16/17 09:45 (NS Flush) 2 ml BID IV FLUSH 07/16/17 21:00 07/21/17 08:47 (Zofran Inj) 4 mg Q6H PRN IVP 07/16/17 09:45 (Lovenox Inj) 40 mg Q24H SQ 07/16/17 11:00 07/21/17 11:40 (Milk Of Magnesia Liq) 30 ml Q12H PRN PO 07/16/17 09:45 (Senokot) 17.2 mg Q12H PRN PO 07/16/17 09:45 (Dulcolax Supp) 10 mg DAILY PRN RECTAL 07/16/17 09:45 (Lactulose Liq) 30 ml DAILY PRN PO 07/16/17 09:45 Potassium Chloride/Sodium Chloride 1,000 ml @ 125 mls/hr Q8H IV 07/16/17 09:45 07/21/17 05:45 Pharmacy Profile Note 0 ml @ 0 mls/hr UNSCH OTHER 07/16/17 09:45 (Toradol Inj) 30 mg Q6H PRN IV PUSH 07/16/17 19:00 07/21/17 18:59 07/17/17 14:34 (Narcan Inj) 0.4 mg UNSCH PRN IV PUSH 07/16/17 19:00 (Lipitor) 40 mg HS PO 07/17/17 21:00 07/20/17 21:08 ([place] 5-325 Mg) 1 tab Q6H PRN PO 07/17/17 16:30 07/20/17 21:11 Vancomycin HCl 2250 mg/Sodium Chloride 522.5 ml @ 258.75 mls/ hr Q18H IV 07/19/17 02:00 Future Hold 07/20/17 14:36 (KCl) 40 meq Q12HR PO 07/20/17 12:15 07/21/17 08:46 (Apresoline) 10 mg Q6HR PRN PO 07/21/17 13:00 Vital Signs / I&O Vital Signs Date Time Temp Pulse Resp B/P (MAP) Pulse Ox O2 Delivery O2 Flow Rate FiO2 07/21/17 12:00 98.2 90 18 170/79 (109) 97 07/21/17 08:00 97.3 92 18 188/88 (121) 99 07/21/17 04:00 98.2 83 17 162/72 (102) 98 07/21/17 00:00 98.1 88 19 162/72 (102) 98 07/20/17 20:00 98.0 89 18 153/71 (98) 99 I/O 07/20/17 07/20/17 07/20/17 07/21/17 07/21/17 07/21/17 07:00 15:00 23:00 07:00 15:00 23:00 Intake Total 120 ml 350 ml Output Total 2200 ml 1175 ml 1650 ml 1200 ml Balance -2080 ml -825 ml -1650 ml -1200 ml Intake Oral 120 ml 150 ml IV Total 200 ml Output Urine Total 2200 ml 1175 ml 1650 ml 1200 ml # Bowel Movements 1 1 0 0 Physical Exam GENERAL: In NAD. SKIN: Warm and dry. HEAD: Normocephalic. EYES: No scleral icterus. No injection or drainage. NECK: Supple, trachea midline. No JVD or lymphadenopathy. CARDIOVASCULAR: Regular rate and rhythm without murmurs, gallops, or rubs. RESPIRATORY: Breath sounds equal bilaterally. No accessory muscle use. GASTROINTESTINAL: Abdomen soft, non-tender, nondistended. MUSCULOSKELETAL: No cyanosis, mild edema. Laboratory Laboratory Tests Test 07/21/17 07:00 07/21/17 10:10 White Blood Count 13.9 TH/MM3 Red Blood Count 3.44 MIL/MM3 Hemoglobin 7.6 GM/DL Hematocrit 23.5 % Mean Corpuscular Volume 68.1 FL Mean Corpuscular Hemoglobin 22.1 PG Mean Corpuscular Hemoglobin Concent 32.5 % Red Cell Distribution Width 23.4 % Platelet Count 405 TH/MM3 Mean Platelet Volume 6.9 FL Neutrophils (%) (Auto) 75.1 % Lymphocytes (%) (Auto) 14.0 % Monocytes (%) (Auto) 8.2 % Eosinophils (%) (Auto) 1.6 % Basophils (%) (Auto) 1.1 % Neutrophils # (Auto) 10.4 TH/MM3 Lymphocytes # (Auto) 1.9 TH/MM3 Monocytes # (Auto) 1.1 TH/MM3 Eosinophils # (Auto) 0.2 TH/MM3 Basophils # (Auto) 0.2 TH/MM3 CBC Comment DIFF FINAL Differential Comment Prothrombin Time 12.1 SEC Prothromb Time International Ratio 1.2 RATIO Activated Partial Thromboplast Time 26.9 SEC Blood Urea Nitrogen 10 MG/DL Creatinine 1.92 MG/DL Random Glucose 88 MG/DL Total Protein 7.3 GM/DL Albumin 1.5 GM/DL Calcium Level 7.8 MG/DL Alkaline Phosphatase 79 U/L Aspartate Amino Transf (AST/SGOT) 51 U/L Alanine Aminotransferase (ALT/SGPT) 32 U/L Total Bilirubin 0.5 MG/DL Sodium Level 144 MEQ/L Potassium Level 3.7 MEQ/L Chloride Level 114 MEQ/L Carbon Dioxide Level 23.4 MEQ/L Anion Gap 7 MEQ/L Estimat Glomerular Filtration Rate 44 ML/MIN Vancomycin Level Trough 32.9 MCG/ML Stool C. difficile Toxin (PCR) NEGATIVE Stl C. difficile Toxin Epiderm 027 PRESUMPTIVE NEGATIVE Imaging Last 24 hours Impressions Chest X-Ray 07/21/17 0600 Signed Impressions: Service Date/Time: Friday, July 21, 2017 10:28 - CONCLUSION: Over wall worsening lung exam with persistent complete opacification of the left upper lobe and progressive volume loss with increased parenchymal density within the remainder of the left lower lobe. 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 ALEX showed a small MV vegetation. Continue prolonged antibiotic tx as per ID. Continue current program. Increase activity, PT. D/w pt and . Trevon Cordero MD Jul 21, 2017 17:18
[2017-07-21 20:00] VITALS: BP 196/101; PULSE 94; RESP 18; TEMP 97.9; O2SAT 99
[2017-07-21] MEDS: ACETAMINOPHEN/HYDROcodone 325 MG/5 MG TAB PO PRN (22:34)
[2017-07-21] MEDS: ATORVASTATIN 40 MG TAB PO SCH (22:34)
[2017-07-22] VITALS: BP 185/86; PULSE 92; RESP 21; TEMP 97.6; O2SAT 98
[2017-07-22] MEDS: hydrALAZINE HCL 10 MG TAB PO PRN (01:38)
[2017-07-22] MEDS: NS + KCL 20 MEQ INJ 1,000 ML IV SCH ×4 (02:05→21:39)
[2017-07-22 04:00] VITALS: BP 173/84; PULSE 86; RESP 21; TEMP 97.7; O2SAT 100
[2017-07-22 08:25] VITALS: BP 183/86; PULSE 84; RESP 20; TEMP 97.4; O2SAT 97
[2017-07-22] MEDS: SODIUM CHLORIDE 0.9% FLUSH 10 ML FLUSH IV FLUSH SCH ×2 (09:00→21:28)
[2017-07-22] MEDS: POTASSIUM CHLORIDE 10 MEQ CONTROLLED RELEASE TAB PO SCH ×2 (09:00→21:28)
--- NOTE | 2017-07-22 10:20 | HHI.FPPN ---
Subjective Remarks Patient evaluated by resident team on rounds. No acute events overnight. Patient was afebrile overnight, but didn't have elevated blood pressures up to 170-190 systolic and 80s to 101 diastolic. Patient continues to report left- sided chest pain, unchanged from day prior. He also reports diarrhea overnight. No changes to the left-sided weakness that he presented with. (Javy Hernandez MD R1) Objective Vitals Vital Signs Date Time Temp Pulse Resp B/P (MAP) Pulse Ox O2 Delivery O2 Flow Rate FiO2 07/22/17 08:25 97.4 84 20 183/86 (118) 97 07/22/17 04:00 97.7 86 21 173/84 (113) 100 07/22/17 00:00 97.6 92 21 185/86 (119) 98 07/21/17 20:00 97.9 94 18 196/101 (132) 99 07/21/17 16:00 97.9 85 18 127/68 (87) 99 07/21/17 12:00 98.2 90 18 170/79 (109) 97 I/O 07/21/17 07/21/17 07/21/17 07/22/17 07/22/17 07/22/17 07:00 15:00 23:00 07:00 15:00 23:00 Intake Total 1000 ml 1000 ml Output Total 2700 ml 1800 ml 2000 ml Balance 1000 ml -2700 ml -1800 ml -1000 ml IV Total 1000 ml 1000 ml Output Urine Total 2700 ml 1800 ml 2000 ml # Bowel Movements 0 1 0 (Javy Hernandez MD R1) Result Diagram: 07/21/17 0700 07/21/17 0700 Objective Remarks GENERAL: Patient awake laying in bed comfortably in no acute distress. SKIN: . Cool and dry. Patient was rolled onto his side and his back was observed with no visible ulcerations, bruising appreciated. HEAD: Atraumatic. Normocephalic. EYES: Extraocular motions intact. No scleral icterus. No injection or drainage. ENT: Nose without bleeding, purulent drainage or septal hematoma. Airway patent. NECK: Trachea midline. No JVD or lymphadenopathy. Supple, nontender, no meningeal signs. Pt with scar from prior surgery on posterior neck CARDIOVASCULAR: Regular rate and rhythm without murmurs, gallops, or rubs. RESPIRATORY: Good air movement BL. No wheezes or crackles appreciated GASTROINTESTINAL: Abdomen soft, non-tender, non-distended. Supra pubic catheter in place MUSCULOSKELETAL: Extremities without clubbing, cyanosis, or edema. No tenderness to palpation over her shoulder or left side of body. His pain cannot be reproduced by palpation. No joint tenderness, effusion, or edema noted. No calf tenderness. Negative Homans sign bilaterally. Normal sensation. NEUROLOGICAL: Cranial nerves II through XII intact. 5/5 muscle strength on R Upper Ext. 4/5 on Right LE, 4/5 on L upper ext, 2/5 on Left LE (same as previous exams). Normal speech. (Javy Hernandez MD R1) A/P Assessment and Plan Patient is 57-year-old M with PMHx BPH and s/p prostatectomy (on 05/2017) presented to the ED with 2 wks of progressive worsening left side pain and weakness associated with GAINES. Urologist Dr. Patel, completed the surgery. Pt found to have Left apical lung mass with supraclavicular extension on imaging and focal embolic in in brain MRI. Pt is currently being treated for MRSA bacteremia. ALEX results positive for small mitral valve vegetation. Discharge Planning time frame unclear (Javy Hernandez MD R1) Assessment and Plan Patient seen and examined. Case reviewed and discussed with resident team. Agree with plan of care is discussed with me and documented in the resident note. (Van Rand MD) Problem List: (1) Bacteremia due to Gram-positive bacteria ICD Codes: R78.81 - Bacteremia Plan: Blood cultures on admission (07/16): Positive for MRSA. Repeat cultures on 07/19 continued to grow MRSA. Blood cultures from 07/21 pending History of rectal temp of 102.5, elevated ESR 5.9 cm abscess with suspected pneumonia surrounding -Infectious disease consulted, appreciate recommendations; cont Vanc, IR aspiration of lung abscess planned for today vs. pending clinical improvement for further eval MRSA sepsis + on blood cx 07/16, high-grade with embolic brain lesions, likely underlying endocarditis in view of ALEX Appears to have abscess at left lung apex Endocarditis Urine cx negative Embolic stroke with left-sided hemiplegia -Echo negative for endocarditis ALEX results: Mitral valve was structurally normal, but there was evidence of a small mobile mitral valve vegetation. Borderline normal left ventricular systolic function. Trace regurgitation of mitral and tricuspid valve. Trace pulmonary insufficiency (2) Endocarditis ICD Codes: I38 - Endocarditis, valve unspecified Plan: see plan above for bacteremia (3) OLLIE (acute kidney injury) ICD Codes: N17.9 - Acute kidney failure, unspecified Plan: Elevated creatinine appreciated in 07/21 (creatinine 0.97 - > 1.92) No known history of CKD 6500 mL urinary output recorded over the last 24 hours Continue IV fluids at 125 mL per hour Follow-up a.m. labs, consider further workup if creatinine continues to be elevated (4) Left-sided weakness ICD Codes: R53.1 - Weakness Status: Acute Plan: L sided weakness/severe pain, worse at L shoulder Likely due to embolic stroke versus septic arthritis -neuro checks Q4h -Out of bed with assistance -PT to evaluate, recommendations: Continue physical therapy at rehabilitation and OT therapy. -Will submit OT referral for evaluation Imaging: -MRI lumbar spine: no osteomyelitis, spinal canal stenosis at L3-L5, no significant change from prior study -MRI thoracic spine: multilevel disc spurs at T3-4 and T5-T6 and T9-10, no cord compression, no significant change from prior study -MRI brain: Small focal infarcts likely embolic in the right occipital lobe and right parietal high convexities near the vertex. - Head MRA normal - Echo: EF of 50%. Trace tricuspid valve regurgitation. Otherwise normal echo. - ALEX: small mitral valve vegetation (5) SIRS (systemic inflammatory response syndrome) ICD Codes: R65.10 - Systemic inflammatory response syndrome (SIRS) of non- infectious origin without acute organ dysfunction Plan: On admission Pt with elevated white count at 23.2, Temp:102.1. Lactic acid 1.8. WBC has remained elevated, afebrile since 07/16 -possible source of infection lungs vs cardiac vegetation: Patient found to have lung abscess at left apex and mitral valve vegetation. -See Bacteremia - Cont Vanc - Zosyn D/c'ed per ID -continue to monitor VS (6) Lung mass ICD Codes: R91.8 - Other nonspecific abnormal finding of lung field Status: Acute Plan: Likely abscess related to MRSA bacteremia, less likely neoplasm -CT aspiration to be avoided due to high-risk region of aspiration, will f/u with IR if he is not clinically improving -pulm and ID consulted, recommendation appreciated -- IR abscess drainage planned for today per ID Chest CT 07/16/17: Complex loculated 5.9 cm fluid attenuation area at the left lung apex most characteristic of an abscess stanchion into the extrathoracic soft tissues superiorly and extending supraclavicular with locules of air present in the supraclavicular region and within the chest lesion. There is a suspected surrounding pneumonia upper left lung. Cannot exclude necrotic neoplasm. This would be amenable to CT guided aspiration. Mildly enlarged mediastinal and left hilar lymph nodes. Trace left pleural effusion. CRX 07/16: 5cm masslike opacity at the left apex -CXR (07/19): Stable from previous imaging (7) Focal infarction of brain ICD Codes: I63.9 - Cerebral infarction, unspecified Plan: Brain MRI with findings consistent with small focal infarcts, likely embolic in the right occipital lobe and right parietal high convexities near the vertex. Based on patient history, likely have been present for 2 weeks+ -Head CT within normal limits -Neck MRA normal -PT and OT consulted -Continue statin -Monitor vitals, keep BP controlled -PRN hydralazine 10 mg po per HTN protocol (8) HTN (hypertension) ICD Codes: I10 - Essential (primary) hypertension Status: Chronic Plan: Elevated blood pressures up to 192/101 overnight - > treated with by mouth hydralazine 10 mg with improvement of blood pressure to 173/84 No reported history of hypertension Starting metoprolol tartrate 25 mg twice a day Continue hydralazine as needed for systolic blood pressures >180, diastolic blood pressures >100 (9) Hypokalemia ICD Codes: E87.6 - Hypokalemia Status: Acute Plan: IV fluids with potassium supplementation -K WNL on 07/21 at 3.7 -magnesium (2.8) and phosphorus (3.6) -Continue to monitor, follow-up a.m. labs (10) UTI (urinary tract infection) ICD Codes: N39.0 - Urinary tract infection, site not specified Status: Resolved Plan: -Pt with suprapubic catheter, capped -Urethral catheter in place, urine output appropriate (based on 0.5 mL/kg/h) -UA positive for large leukocyte esterase, RBC and WBC elevated -Urine culture: No growth in 48 hours -See antibiotics above (11) Elevated LFTs ICD Codes: R79.89 - Other specified abnormal findings of blood chemistry Plan: Slightly elevated AST on admission -stable thus far -f/u CMP -Continue to monitor (12) Abdominal pain ICD Codes: R10.9 - Unspecified abdominal pain Plan: Patient with complaints of abdominal pain and distension yesterday. Denies nausea or vomiting. Pt denies pain today, 4 loose stools in last 24hrs f/u KUB f/u C.Diff (13) Nutrition, metabolism, and development symptoms ICD Codes: R63.8 - Other symptoms and signs concerning food and fluid intake Plan: Fluids: 125 mls/hr with K Electrolytes: K WNL, replete as needed. Nutrition: regular diet DVT ppx: lovenox (Javy Hernandez MD R1) Problem Qualifiers (1) HTN (hypertension): Qualified Codes: I10 - Essential (primary) hypertension (2) UTI (urinary tract infection): Qualified Codes: T83.511S - Infection and inflammatory reaction due to indwelling urethral catheter, sequela; N39.0 - Urinary tract infection, site not specified Javy Hernandez MD R1 Jul 22, 2017 10:20 Van Rand MD Jul 22, 2017 10:36
[2017-07-22] MEDS: METOPROLOL TARTRATE 25 MG TAB PO SCH ×2 (12:19→21:28)
--- NOTE | 2017-07-22 14:36 | HHI.IDPN ---
Subjective Subjective Remarks more positive blood clx No new c/o pt is going for IR guided drainage of his abscess today Vanco level high Creatinin 1.92 Afebrile Antibiotics vanco Allergies: Coded Allergies: No Known Allergies (Verified Allergy, Unknown, 07/16/17) Objective . Vital Signs Date Time Temp Pulse Resp B/P (MAP) Pulse Ox O2 Delivery O2 Flow Rate FiO2 07/22/17 08:25 97.4 84 20 183/86 (118) 97 07/22/17 04:00 97.7 86 21 173/84 (113) 100 07/22/17 00:00 97.6 92 21 185/86 (119) 98 07/21/17 20:00 97.9 94 18 196/101 (132) 99 07/21/17 16:00 97.9 85 18 127/68 (87) 99 . Laboratory Tests Test 07/21/17 07:00 White Blood Count 13.9 TH/MM3 Red Blood Count 3.44 MIL/MM3 Hemoglobin 7.6 GM/DL Hematocrit 23.5 % Mean Corpuscular Volume 68.1 FL Mean Corpuscular Hemoglobin 22.1 PG Mean Corpuscular Hemoglobin Concent 32.5 % Red Cell Distribution Width 23.4 % Platelet Count 405 TH/MM3 Mean Platelet Volume 6.9 FL Neutrophils (%) (Auto) 75.1 % Lymphocytes (%) (Auto) 14.0 % Monocytes (%) (Auto) 8.2 % Eosinophils (%) (Auto) 1.6 % Basophils (%) (Auto) 1.1 % Neutrophils # (Auto) 10.4 TH/MM3 Lymphocytes # (Auto) 1.9 TH/MM3 Monocytes # (Auto) 1.1 TH/MM3 Eosinophils # (Auto) 0.2 TH/MM3 Basophils # (Auto) 0.2 TH/MM3 CBC Comment DIFF FINAL Differential Comment Laboratory Tests Test 07/21/17 07:00 Blood Urea Nitrogen 10 MG/DL Creatinine 1.92 MG/DL Random Glucose 88 MG/DL Total Protein 7.3 GM/DL Albumin 1.5 GM/DL Calcium Level 7.8 MG/DL Alkaline Phosphatase 79 U/L Aspartate Amino Transf (AST/SGOT) 51 U/L Alanine Aminotransferase (ALT/SGPT) 32 U/L Total Bilirubin 0.5 MG/DL Sodium Level 144 MEQ/L Potassium Level 3.7 MEQ/L Chloride Level 114 MEQ/L Carbon Dioxide Level 23.4 MEQ/L Anion Gap 7 MEQ/L Estimat Glomerular Filtration Rate 44 ML/MIN Microbiology Date/Time Source Procedure Growth Status 07/21/17 07:06 Blood Peripheral Aerobic Blood Culture - Preliminary NO GROWTH IN 1 DAY Resulted 07/21/17 07:06 Blood Peripheral Anaerobic Blood Culture - Preliminary NO GROWTH IN 1 DAY Resulted 07/21/17 07:00 Blood Peripheral Aerobic Blood Culture - Preliminary NO GROWTH IN 1 DAY Resulted 07/21/17 07:00 Blood Peripheral Anaerobic Blood Culture - Preliminary NO GROWTH IN 1 DAY Resulted 07/21/17 10:10 Stool Stool Stool Occult Blood (TERRY) - Final HEMOCCULT NEGATIVE Complete Imaging Last Impressions Chest X-Ray 07/21/17 0600 Signed Impressions: Service Date/Time: Friday, July 21, 2017 10:28 - CONCLUSION: Over wall worsening lung exam with persistent complete opacification of the left upper lobe and progressive volume loss with increased parenchymal density within the remainder of the left lower lobe. Lida Eric MD Shoulder X-Ray 07/20/17 0000 Signed Impressions: Service Date/Time: Thursday, July 20, 2017 12:54 - CONCLUSION: No evidence of fracture. Cliff Lomeli MD Shoulder MRI 07/20/17 0000 Signed Impressions: Service Date/Time: Thursday, July 20, 2017 12:09 - CONCLUSION: 1. Abscess of the left lung apex again seen with anterior and posterior extension of abnormal enhancement and edema. There is extension of abscess anteriorly just inferior to the sternoclavicular joint. Elongated extension of abscess along the deep margin of the pectoralis muscle also noted. Extension of the edema and enhancement suggesting soft tissue infection in the region of the proximal coracobrachialis and biceps muscles. 2. No evidence of osteomyelitis. 3. Glenohumeral joint within normal limits. 4. Moderate acromioclavicular joint arthrosis. 5. Rotator cuff tendons are intact. Cliff Lomeli MD Abdomen X-Ray 07/19/17 0000 Signed Impressions: Service Date/Time: Wednesday, July 19, 2017 14:08 - CONCLUSION: Bowel distention as described above. There is no free air. Fredy Vega MD FACR Neck Magnetic Resonance Angiography 07/17/17 0000 Signed Impressions: Service Date/Time: Monday, July 17, 2017 09:00 - CONCLUSION: 1. Normal carotid arteries. Tahir Miramontes MD Head Magnetic Resonance Angiography 07/17/17 0000 Signed Impressions: Service Date/Time: Monday, July 17, 2017 09:00 - CONCLUSION: 1. No large vessel aneurysm or stenosis. 2. Normal variants as described above. Tahir Miramontes MD Thoracic Spine MRI 07/16/17 0000 Signed Impressions: Service Date/Time: Sunday, July 16, 2017 10:42 - CONCLUSION: 1. Multilevel disc spurs at T3-4, T5-T6 scan, most significantly at T9-10. Despite degenerative changes, there is no cord compromise at any thoracic level. No significant change from prior. 2. Possible loculated effusion in the left lung apex. Bonifacio Echeverria MD Lumbar Spine MRI 07/16/17 0000 Signed Impressions: Service Date/Time: Sunday, July 16, 2017 10:42 - CONCLUSION: 1. Stable CT scan of the lumbar spine compared to the prior examination of 07/29/2015. 2. No evidence to suggest discitis or osteomyelitis. 3. There continues to be spinal canal stenosis at L3-4 and L4-5 without significant change compared to the prior study. Fahad Garrido MD Head CT 07/16/17 0000 Signed Impressions: Service Date/Time: Sunday, July 16, 2017 07:04 - CONCLUSION: Unremarkable study. Sree Lind MD Chest CT 07/16/17 0000 Signed Impressions: Service Date/Time: Sunday, July 16, 2017 12:46 - CONCLUSION: 1. Complex loculated 5.9 cm fluid attenuation area at the left lung apex most characteristic of an abscess with extension into the extrathoracic soft tissues superiorly and extending supraclavicular with locules of air present in the supraclavicular region and within the chest lesion. There is a suspected surrounding pneumonia upper left lung. Cannot exclude necrotic neoplasm. This would be amenable to CT-guided aspiration. 2. Mildly enlarged mediastinal and left hilar lymph nodes. 3. Trace left pleural effusion. Ryan Byrnes MD Cervical Spine MRI 07/16/17 0000 Signed Impressions: Service Date/Time: Sunday, July 16, 2017 10:42 - CONCLUSION: 1. Stable overall appearance of the cervical spine compared to the prior examination of 07/28/2015. 2. Specifically, no evidence to suggest discitis or osteomyelitis. Fahad Garrido MD Brain MRI 07/16/17 0000 Signed Impressions: Service Date/Time: Sunday, July 16, 2017 10:42 - CONCLUSION: 1. 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 Vasquez Thayer MD Abdomen/Pelvis CT 07/16/17 0000 Signed Impressions: Service Date/Time: Sunday, July 16, 2017 12:49 - CONCLUSION: 1. Suprapubic catheter present presumably passing into bladder with thickened bladder wall. There is a Saxena catheter present with the balloon in the lower bladder or possibly within the prostatic region. Patient is reportedly status post prostatectomy. 2. Diffuse ileus. Stable renal cysts. 3. Mild inflammatory changes left lung base. Ryan Byrnes MD Physical Exam CONSTITUTIONAL/GENERAL: This is an adequately nourished patient, in no apparent distress. TUBES/LINES/DRAINS: SKIN: No jaundice, rashes, or lesions. Skin temperature appropriate. Not diaphoretic. CARDIOVASCULAR: Regular rate and rhythm + some sysrtolic murmurs, gallops, or rubs. No JVD. Peripheral pulses symmetric. RESPIRATORY/CHEST: Symmetric, unlabored respirations. Clear to auscultation. Breath sounds equal bilaterally. No wheezes, rales, or rhonchi. CHEST with ill defined edema, tenderness in L upper aspect GASTROINTESTINAL: Abdomen soft, non-tender, nondistended. No hepato-splenomegaly , or palpable masses. No guarding. Bowel sounds present. GENITOURINARY: Without palpable bladder distension. SP catheter in place wiith cloudy and blood tinged urine MUSCULOSKELETAL: Extremities without clubbing, cyanosis, + 1 edema. No joint tenderness or effusion noted. No calf tenderness. No mottling or clubbing. LYMPHATICS: No palpable cervical or supraclavicular adenopathy. NEUROLOGICAL: Awake and alert. Motor and sensory grossly within normal limits. Follows commands. Less confused, speech is clear but not always coherent LUE weakness PSYCHIATRIC: No obvious anxiety/depression. no apparent hallucinations or other psychotic thought process. Assessment & Plan Remarks MRSA sepsis, high grade with embolic brain lesions, liwith confirmed mitral valvve endocarditis persistetnly positive blood clx Complex loculated 5.9 cm fluid attenuation area at the left lung apex most characteristic of an abscess with extension into the extrathoracic soft tissues CT from 07/[address] Echeverria - dw Dr Andre: no extention outside parenchima MRI showed again Abscess of the left lung apex again seen with anterior and posterior extension of abnormal enhancement and edema. There is extension of abscess anteriorly just inferior to the sternoclavicular joint. Elongated extension of abscess along the deep margin of the pectoralis muscle also noted. Pt was seen by industrial mechanic - recommended IR drainage Suspected complex UTI sp prostatic surgery abnd SP cath - clx not confrimed infection Mitral valve endocarditis Embolic stroke resulted in L side hemiplegia Acure renal injury dc vanco start daptomycin - fu CKs weekly IR drainage today fu blood c lx untill clearance documentd monitor clearinine \ Stacey Kruger MD Jul 22, 2017 14:36
--- NOTE | 2017-07-22 16:36 | HHI.PR ---
Subjective Remarks alert weak Objective Vital Signs Date Time Temp Pulse Resp B/P (MAP) Pulse Ox O2 Delivery O2 Flow Rate FiO2 07/22/17 08:25 97.4 84 20 183/86 (118) 97 07/22/17 04:00 97.7 86 21 173/84 (113) 100 07/22/17 00:00 97.6 92 21 185/86 (119) 98 07/21/17 20:00 97.9 94 18 196/101 (132) 99 I/O 07/21/17 07/21/17 07/21/17 07/22/17 07/22/17 07/22/17 07:00 15:00 23:00 07:00 15:00 23:00 Intake Total 1000 ml 1000 ml Output Total 2700 ml 1800 ml 2000 ml Balance 1000 ml -2700 ml -1800 ml -1000 ml IV Total 1000 ml 1000 ml Output Urine Total 2700 ml 1800 ml 2000 ml # Bowel Movements 0 1 0 Result Diagram: 07/21/17 0700 07/21/17 0700 Objective Remarks GENERAL: SKIN: Warm and dry. HEAD: Atraumatic. Normocephalic. EYES: Pupils equal and round. No scleral icterus. No injection or drainage. ENT: No nasal bleeding or discharge. Mucous membranes pink and moist. NECK: Trachea midline. No JVD. CARDIOVASCULAR: Regular rate and rhythm. RESPIRATORY: No accessory muscle use. Clear to auscultation. Breath sounds equal bilaterally. GASTROINTESTINAL: Abdomen soft, non-tender, nondistended. Hepatic and splenic margins not palpable. MUSCULOSKELETAL: Extremities without clubbing, cyanosis, or edema. No obvious deformities. NEUROLOGICAL: Awake and alert. No obvious cranial nerve deficits. Motor grossly within normal limits. Five out of 5 muscle strength in the arms and legs. Normal speech. PSYCHIATRIC: Appropriate mood and affect; insight and judgment normal. Assessment and Plan Assessment and Plan left lung abscess endocarditis embolic stroke plan o2 antibx thoracic surgery to see Drew Russell MD Jul 22, 2017 16:36
[2017-07-22 16:57] LABS: AUTOMATED NEUTROPHIL # 9.7 TH/MM3 (1.8-7.7); BASOPHIL # 0.1 TH/MM3 (0-0.2); BASOPHIL % 0.6 % (0.0-2.0); EOSINOPHIL # 0.2 TH/MM3 (0-0.4); EOSINOPHIL % 1.4 % (0.0-4.0); HEMATOCRIT 24.7 % (39.0-51.0); HEMOGLOBIN 8.1 GM/DL (13.0-17.0); LYMPH % 14.3 % (9.0-44.0); LYMPHOCYTE # 1.8 TH/MM3 (1.0-4.8); MEAN CELL VOLUME 68.4 FL (80.0-100.0); MEAN CORPUSCULAR HEMOGLOBIN 22.3 PG (27.0-34.0); MEAN CORPUSCULAR HGB CONC 32.6 % (32.0-36.0); MEAN PLATELET VOLUME 7.1 FL (7.0-11.0); MONO % 7.3 % (0.0-8.0); MONOCYTE # 0.9 TH/MM3 (0-0.9); NEUT % 76.4 % (16.0-70.0); PLATELET COUNT 429 TH/MM3 (150-450); RED BLOOD COUNT 3.61 MIL/MM3 (4.50-5.90); RED CELL DISTRIBUTION WIDTH 23.9 % (11.6-17.2); WHITE BLOOD COUNT 12.7 TH/MM3 (4.0-11.0)
[2017-07-22] MEDS ORDERED: DAPTOmycin INJ 750 MG in SODIUM CHLORIDE 0.9% INJ 100 ML IV SCH (17:00)
[2017-07-22 17:03] LABS: ALBUMIN 1.7 GM/DL (3.4-5.0); AST (GOT) 43 U/L (15-37); BICARBONATE 26.9 MEQ/L (21.0-32.0); BLOOD UREA NITROGEN 13 MG/DL (7-18); CALCIUM 8.4 MG/DL (8.5-10.1); CHLORIDE 114 MEQ/L (98-107); CREATININE 2.69 MG/DL (0.60-1.30); GLOMERULAR FILTRATION RATE 30 ML/MIN (>89); GLUCOSE,RANDOM 69 MG/DL (74-106); SODIUM (NA) 145 MEQ/L (136-145)
[2017-07-22 17:04] LABS: ALT (GPT) 31 U/L (12-78)
[2017-07-22 17:06] LABS: ALKALINE PHOSPHATASE 81 U/L (45-117); TOTAL BILIRUBIN ADULT 0.5 MG/DL (0.2-1.0); TOTAL PROTEIN 7.9 GM/DL (6.4-8.2)
[2017-07-22 18:02] VITALS: BP 168/92; PULSE 88; RESP 20; TEMP 97.6; O2SAT 97
--- NOTE | 2017-07-22 19:22 | PD.CARD.PN ---
Subjective Subjective Remarks No CP or SOB, c/o L shoulder pain Objective Medications Current Medications Medications (Trade) Dose Ordered Sig/Briseyda Route Start Time Stop Time Status Last Admin (NS Flush) 2 ml UNSCH PRN IV FLUSH 07/16/17 09:45 (NS Flush) 2 ml BID IV FLUSH 07/16/17 21:00 07/21/17 08:47 (Zofran Inj) 4 mg Q6H PRN IVP 07/16/17 09:45 (Lovenox Inj) 40 mg Q24H SQ 07/16/17 11:00 Future hold 07/21/17 11:40 (Milk Of Magnesia Liq) 30 ml Q12H PRN PO 07/16/17 09:45 (Senokot) 17.2 mg Q12H PRN PO 07/16/17 09:45 (Dulcolax Supp) 10 mg DAILY PRN RECTAL 07/16/17 09:45 (Lactulose Liq) 30 ml DAILY PRN PO 07/16/17 09:45 Potassium Chloride/Sodium Chloride 1,000 ml @ 125 mls/hr Q8H IV 07/16/17 09:45 07/22/17 18:03 (Narcan Inj) 0.4 mg UNSCH PRN IV PUSH 07/16/17 19:00 (Lipitor) 40 mg HS PO 07/17/17 21:00 07/21/17 22:34 (Calder 5-325 Mg) 1 tab Q6H PRN PO 07/17/17 16:30 07/21/17 22:34 (KCl) 40 meq Q12HR PO 07/20/17 12:15 07/21/17 22:39 (Apresoline) 10 mg Q6HR PRN PO 07/21/17 13:00 07/22/17 01:38 (Lopressor) 25 mg Q12HR PO 07/22/17 11:15 07/22/17 12:19 Daptomycin 750 mg/ Sodium Chloride 100 ml @ 200 mls/hr Q24H IV 07/22/17 17:00 07/22/17 18:01 Vital Signs / I&O Vital Signs Date Time Temp Pulse Resp B/P (MAP) Pulse Ox O2 Delivery O2 Flow Rate FiO2 07/22/17 18:02 97.6 88 20 168/92 (117) 97 07/22/17 08:25 97.4 84 20 183/86 (118) 97 07/22/17 04:00 97.7 86 21 173/84 (113) 100 07/22/17 00:00 97.6 92 21 185/86 (119) 98 07/21/17 20:00 97.9 94 18 196/101 (132) 99 I/O 07/21/17 07/21/17 07/21/17 07/22/17 07/22/17 07/22/17 07:00 15:00 23:00 07:00 15:00 23:00 Intake Total 1000 ml 1000 ml 0 ml Output Total 2700 ml 1800 ml 2000 ml Balance 1000 ml -2700 ml -1800 ml -1000 ml 0 ml Intake Oral 0 ml IV Total 1000 ml 1000 ml Output Urine Total 2700 ml 1800 ml 2000 ml # Bowel Movements 0 1 0 2 Physical Exam GENERAL: In NAD. SKIN: Warm and dry. HEAD: Normocephalic. EYES: No scleral icterus. No injection or drainage. NECK: Supple, trachea midline. No JVD or lymphadenopathy. CARDIOVASCULAR: Regular rate and rhythm without murmurs, gallops, or rubs. RESPIRATORY: Breath sounds equal bilaterally. No accessory muscle use. GASTROINTESTINAL: Abdomen soft, non-tender, nondistended. MUSCULOSKELETAL: No cyanosis, mild edema. Laboratory Laboratory Tests Test 07/22/17 14:47 White Blood Count 12.7 TH/MM3 Red Blood Count 3.61 MIL/MM3 Hemoglobin 8.1 GM/DL Hematocrit 24.7 % Mean Corpuscular Volume 68.4 FL Mean Corpuscular Hemoglobin 22.3 PG Mean Corpuscular Hemoglobin Concent 32.6 % Red Cell Distribution Width 23.9 % Platelet Count 429 TH/MM3 Mean Platelet Volume 7.1 FL Neutrophils (%) (Auto) 76.4 % Lymphocytes (%) (Auto) 14.3 % Monocytes (%) (Auto) 7.3 % Eosinophils (%) (Auto) 1.4 % Basophils (%) (Auto) 0.6 % Neutrophils # (Auto) 9.7 TH/MM3 Lymphocytes # (Auto) 1.8 TH/MM3 Monocytes # (Auto) 0.9 TH/MM3 Eosinophils # (Auto) 0.2 TH/MM3 Basophils # (Auto) 0.1 TH/MM3 CBC Comment DIFF FINAL Differential Comment Blood Urea Nitrogen 13 MG/DL Creatinine 2.69 MG/DL Random Glucose 69 MG/DL Total Protein 7.9 GM/DL Albumin 1.7 GM/DL Calcium Level 8.4 MG/DL Alkaline Phosphatase 81 U/L Aspartate Amino Transf (AST/SGOT) 43 U/L Alanine Aminotransferase (ALT/SGPT) 31 U/L Total Bilirubin 0.5 MG/DL Sodium Level 145 MEQ/L Potassium Level 3.9 MEQ/L Chloride Level 114 MEQ/L Carbon Dioxide Level 26.9 MEQ/L Anion Gap 4 MEQ/L Estimat Glomerular Filtration Rate 30 ML/MIN Assessment and Plan Problem List: (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 ALEX showed a small MV vegetation. Continue prolonged antibiotic tx as per ID. Increase activity. Problem Qualifiers (1) HTN (hypertension): Qualified Codes: I10 - Essential (primary) hypertension Trevon Cordero MD Jul 22, 2017 19:22
[2017-07-22] MEDS: ATORVASTATIN 40 MG TAB PO SCH (21:28)
[2017-07-22] MEDS: ACETAMINOPHEN/HYDROcodone 325 MG/5 MG TAB PO PRN (21:37)
[2017-07-22 21:43] VITALS: BP 178/84; PULSE 86; RESP 20; TEMP 98; O2SAT 97
[2017-07-23] VITALS (12 sets, daily range): BP systolic 130–206; BP diastolic 59–99; PULSE 73–87; RESP 18–20; TEMP 97–98.3; O2SAT 95–100
[2017-07-23] MEDS: hydrALAZINE HCL 10 MG TAB PO PRN (00:14)
[2017-07-23] MEDS: NS + KCL 20 MEQ INJ 1,000 ML IV SCH ×3 (05:39→23:17)
[2017-07-23 07:21] LABS: AUTOMATED NEUTROPHIL # 9.3 TH/MM3 (1.8-7.7); BASOPHIL # 0.1 TH/MM3 (0-0.2); BASOPHIL % 0.8 % (0.0-2.0); EOSINOPHIL # 0.2 TH/MM3 (0-0.4); EOSINOPHIL % 1.6 % (0.0-4.0); HEMATOCRIT 24.5 % (39.0-51.0); HEMOGLOBIN 7.8 GM/DL (13.0-17.0); LYMPH % 17.4 % (9.0-44.0); LYMPHOCYTE # 2.2 TH/MM3 (1.0-4.8); MEAN CELL VOLUME 67.9 FL (80.0-100.0); MEAN CORPUSCULAR HEMOGLOBIN 21.7 PG (27.0-34.0); MONO % 7.7 % (0.0-8.0); NEUT % 72.5 % (16.0-70.0); PLATELET COUNT 440 TH/MM3 (150-450); RED BLOOD COUNT 3.61 MIL/MM3 (4.50-5.90); RED CELL DISTRIBUTION WIDTH 24.2 % (11.6-17.2); WHITE BLOOD COUNT 12.9 TH/MM3 (4.0-11.0)
[2017-07-23 07:47] LABS: BICARBONATE 25.2 MEQ/L (21.0-32.0); CALCIUM 8.5 MG/DL (8.5-10.1); CREATININE 2.71 MG/DL (0.60-1.30)
[2017-07-23 07:50] LABS: RANDOM VANCOMYCIN 15.8 COMMENT
[2017-07-23] MEDS: SODIUM CHLORIDE 0.9% FLUSH 10 ML FLUSH IV FLUSH SCH ×2 (08:44→23:16)
[2017-07-23] MEDS: METOPROLOL TARTRATE 50 MG TAB PO SCH ×2 (08:45→23:14)
[2017-07-23] MEDS: POTASSIUM CHLORIDE 10 MEQ CONTROLLED RELEASE TAB PO SCH ×2 (08:49→23:14)
[2017-07-23 09:14] LABS: SODIUM,RANDOM URINE 149 MEQ/L
[2017-07-23 09:16] LABS: BACTERIA, URINE RARE /hpf; BILIRUBIN, URINE NEG (NEG); BLOOD, URINE SMALL (NEG); GLUCOSE,URINE NEG (NEG); HYALINE CAST, URINE 3 /lpf (RARE); KETONE, URINE NEG (NEG); MUCUS URINE FEW /lpf (OCC); NITRITE,URINE NEG (NEG); PH, URINE 6.5 (5.0-8.5); SQUAMOUS EPITHELIAL CELL URINE <1 /hpf (0-5); URINE COLOR LIGHT-YELLOW (YELLW/STRAW); URINE LEUKOCYTE ESTERASE LARGE (NEG)
[2017-07-23] MEDS: amLODIPine BESYLATE 5 MG TAB PO SCH (09:18)
[2017-07-23 09:35] LABS: OSMOLALITY,URINE 350 MOSM/KG (300-1300)
--- NOTE | 2017-07-23 10:32 | HHI.FPPN ---
Subjective Remarks Patient seen and examined bedside this morning. Patient states that he did not get his IR aspiration procedure done yesterday, but he is nothing by mouth for the procedure today. He continues to have 10 out of 10 left shoulder pain that is unremitting. He complains that it is getting worse every day. He denies any chest pain or shortness of breath. He denies any mental changes. He continues to have episodes of diarrhea. Objective Vitals Vital Signs Date Time Temp Pulse Resp B/P (MAP) Pulse Ox O2 Delivery O2 Flow Rate FiO2 07/23/17 08:20 97.4 87 20 195/88 (123) 95 07/23/17 06:12 97.3 84 20 169/99 (122) 99 07/23/17 01:51 177/78 (111) 07/23/17 00:05 98.3 85 18 206/90 (128) 99 07/23/17 00:00 97.9 87 20 205/92 (129) 99 07/22/17 21:43 98.0 86 20 178/84 (115) 97 07/22/17 18:02 97.6 88 20 168/92 (117) 97 I/O 07/22/17 07/22/17 07/22/17 07/23/17 07/23/17 07/23/17 07:00 15:00 23:00 07:00 15:00 23:00 Intake Total 1000 ml 0 ml Output Total 2000 ml 1600 ml 1400 ml Balance -1000 ml -1600 ml -1400 ml Intake Oral 0 ml IV Total 1000 ml Output Urine Total 2000 ml 1600 ml 1400 ml # Bowel Movements 0 2 Result Diagram: 07/23/1759 07/23/17 0659 Objective Remarks GENERAL: Patient awake laying in bed comfortably in no acute distress. SKIN: . Cool and dry. Patient was rolled onto his side and his back was observed with no visible ulcerations, bruising appreciated. HEAD: Atraumatic. Normocephalic. EYES: Extraocular motions intact. No scleral icterus. No injection or drainage. ENT: Nose without bleeding, purulent drainage or septal hematoma. Airway patent. NECK: Trachea midline. No JVD or lymphadenopathy. Supple, nontender, no meningeal signs. Pt with scar from prior surgery on posterior neck CARDIOVASCULAR: Regular rate and rhythm without murmurs, gallops, or rubs. RESPIRATORY: Good air movement BL. No wheezes or crackles appreciated GASTROINTESTINAL: Abdomen soft, non-tender, non-distended. Supra pubic catheter in place MUSCULOSKELETAL: Extremities without clubbing, cyanosis, or edema. + Tenderness over right pectoralis muscle and right shoulder. Limitation of right shoulder motion due to pain. No joint tenderness, effusion, or edema noted. No calf tenderness. Negative Homans sign bilaterally. Normal sensation. NEUROLOGICAL: Cranial nerves II through XII intact. 5/5 muscle strength on R Upper Ext. 4/5 on Right LE, 4/5 on L upper ext, 2/5 on Left LE (same as previous exams). Normal speech. A/P Assessment and Plan Patient is 57-year-old M with PMHx BPH and s/p prostatectomy (on 05/2017) presented to the ED with 2 wks of progressive worsening left side pain and weakness associated with GAINES. Urologist Dr. Patel, completed the surgery. Pt found to have Left apical lung mass with supraclavicular extension on imaging and focal embolic in in brain MRI. Pt is currently being treated for MRSA bacteremia. ALEX results positive for small mitral valve vegetation. Discharge Planning time frame unclear Problem List: (1) Bacteremia due to Gram-positive bacteria ICD Codes: R78.81 - Bacteremia Plan: Blood cultures on admission (07/16): Positive for MRSA. Repeat cultures on 07/19 continued to grow MRSA Repeat cultures 07/21: NG x 1 day History of rectal temp of 102.5, and ESR of 140 on admission and CRP 37 now afebrile 5.9 cm abscess with suspected pneumonia surrounding -Infectious disease consulted and Pulm Consulted, appreciate recommendations; cont Vanc, IR aspiration of lung abscess planned for today Urine Cx 07/16: Negative f/u repeat Ucx 07/23 high-grade with embolic brain lesions, likely underlying endocarditis in view of ALEX Embolic stroke with left-sided hemiplegia -Echo negative for endocarditis ALEX results: Mitral valve was structurally normal, but there was evidence of a small mobile mitral valve vegetation. Borderline normal left ventricular systolic function. Trace regurgitation of mitral and tricuspid valve. Trace pulmonary insufficiency (2) Endocarditis ICD Codes: I38 - Endocarditis, valve unspecified Plan: see plan above for bacteremia (3) OLLIE (acute kidney injury) ICD Codes: N17.9 - Acute kidney failure, unspecified Plan: Elevated creatinine appreciated in 07/21 (creatinine 0.97 - > 1.92 --> 2.69 --> 2.71) BUN WNL No known history of CKD, hx of BPH and prostatectomy in May 2017, suprapubic catheter placement with inability to void and subsequently capped and urethral catheter placed ATN via medication (IV Vanc) vs. Post-obstructive uropathy - f/u urine Na, urine osmolality - f/u renal u/s - f/u nephro consult Continue IV fluids at 165 mL /hr 1.5 maintenance (4) Left-sided weakness ICD Codes: R53.1 - Weakness Status: Acute Plan: L sided weakness/severe pain, worse at L shoulder Septic arthritis versus mass effect -neuro checks Q4h -Out of bed with assistance -PT to evaluate, recommendations: Continue physical therapy at rehabilitation and OT therapy. -Will submit OT referral for evaluation Imaging: -MRI lumbar spine: no osteomyelitis, spinal canal stenosis at L3-L5, no significant change from prior study -MRI thoracic spine: multilevel disc spurs at T3-4 and T5-T6 and T9-10, no cord compression, no significant change from prior study -MRI brain: Small focal infarcts likely embolic in the right occipital lobe and right parietal high convexities near the vertex. - Head MRA normal - Echo: EF of 50%. Trace tricuspid valve regurgitation. Otherwise normal echo. - ALEX: small mitral valve vegetation (5) SIRS (systemic inflammatory response syndrome) ICD Codes: R65.10 - Systemic inflammatory response syndrome (SIRS) of non- infectious origin without acute organ dysfunction Plan: On admission Pt with elevated white count at 23.2, Temp:102.1. Lactic acid 1.8. afebrile since 07/16, WBC 12 -possible source of infection lungs vs cardiac vegetation: Patient found to have lung abscess at left apex and mitral valve vegetation. -See Bacteremia - Cont Vanc / changed to daptomycin by pharmacy due to OLLIE -continue to monitor VS (6) Lung mass ICD Codes: R91.8 - Other nonspecific abnormal finding of lung field Status: Acute Plan: Likely abscess related to MRSA bacteremia, less likely neoplasm -CT aspiration to be avoided due to high-risk region of aspiration, will f/u with IR if he is not clinically improving -pulm and ID consulted, recommendation appreciated -- IR abscess drainage planned for today per ID -- consult thoracic surgery Chest CT 07/16/17: Complex loculated 5.9 cm fluid attenuation area at the left lung apex most characteristic of an abscess stanchion into the extrathoracic soft tissues superiorly and extending supraclavicular with locules of air present in the supraclavicular region and within the chest lesion. There is a suspected surrounding pneumonia upper left lung. Cannot exclude necrotic neoplasm. This would be amenable to CT guided aspiration. Mildly enlarged mediastinal and left hilar lymph nodes. Trace left pleural effusion. CRX 07/16: 5cm masslike opacity at the left apex -CXR (07/19): Stable from previous imaging (7) Focal infarction of brain ICD Codes: I63.9 - Cerebral infarction, unspecified Plan: Brain MRI with findings consistent with small focal infarcts, likely embolic in the right occipital lobe and right parietal high convexities near the vertex. Based on patient history, likely have been present for 2 weeks+ -Head CT within normal limits -Neck MRA normal -PT and OT consulted -Continue statin -Monitor vitals, keep BP controlled -PRN hydralazine 10 mg po per HTN protocol (8) HTN (hypertension) ICD Codes: I10 - Essential (primary) hypertension Status: Chronic Plan: Elevated blood pressures up to 205/92 overnight, increased from day before No reported history of hypertension, normotensive at time of admission Add metoprolol tartrate 50 mg twice a day Add amlodipine 5 daily Continue hydralazine as needed for systolic blood pressures >180, diastolic blood pressures >100 If blood pressures continue to increase will consider transfer to [facility] for nicardipine drip (9) Hypokalemia ICD Codes: E87.6 - Hypokalemia Status: Resolved Plan: IV fluids with potassium supplementation -K WNL on 07/21 at 3.7 -magnesium (2.8) and phosphorus (3.6) -Continue to monitor, follow-up a.m. labs (10) UTI (urinary tract infection) ICD Codes: N39.0 - Urinary tract infection, site not specified Status: Resolved Plan: -Pt with suprapubic catheter, capped -Urethral catheter in place, urine output appropriate (based on 0.5 mL/kg/h) -Urine culture 07/16: No growth in 48 hours - f/u repeat Ucx: 07/23: pending -See antibiotics above (11) Elevated LFTs ICD Codes: R79.89 - Other specified abnormal findings of blood chemistry Plan: Slightly elevated AST on admission -stable thus far -f/u CMP -Continue to monitor (12) Abdominal pain ICD Codes: R10.9 - Unspecified abdominal pain Plan: Patient with loose stools since 07/18 KUB 07/19: Bowel distention of large and small bowel. Large bowel dilated 10 cm. Small bowel dilated to 3.6 C. difficile negative (13) Nutrition, metabolism, and development symptoms ICD Codes: R63.8 - Other symptoms and signs concerning food and fluid intake Plan: Fluids: 125 mls/hr with K Electrolytes: K WNL, replete as needed. Nutrition: regular diet DVT ppx: lovenox Problem Qualifiers (1) HTN (hypertension): Qualified Codes: I10 - Essential (primary) hypertension (2) UTI (urinary tract infection): Qualified Codes: T83.511S - Infection and inflammatory reaction due to indwelling urethral catheter, sequela; N39.0 - Urinary tract infection, site not specified Evangelina Jones MD R2 Jul 23, 2017 10:32
--- NOTE | 2017-07-23 10:48 | PD.CONS ---
HPI Service Nephrology Consult Requested By Dr. Hernandez Reason for Consult Significant rise in creatinine over 48 hours. Primary Care Physician Phil Polanco DO History of Present Illness Patient is 57-year-old with PMHx BPH and s/p prostatectomy (on 05/2017) presented to the ED with 2 wks of progressive worsening left side pain and weakness associated with GAINES. Pt follows with urologist Dr. Patel, who completed the surgery. Per records patient had suprapubic catheter placed in May. After prostatectomy pt was unable to void and received 2nd (07/01/2017 ) surgery for placement of urethral catheter. At that time supra pubic catheter was capped. Over the last couple of days there is a significant rise in creatinine at 2.71 today from 0.97 on admission. Has indwelling urinary catheter that is draining urine. Being treated for MRSA sepsis, high grade with embolic brain lesions, with confirmed mitral valve endocarditis persistently positive blood clx. Vancomycin discontinued and on daptomycin. (Samantha Urbano) Review of Systems Constitutional: COMPLAINS OF: Fatigue Respiratory: COMPLAINS OF: Cough, DENIES: Shortness of breath Cardiovascular: COMPLAINS OF: Chest pain Gastrointestinal: DENIES: Abdominal pain, Constipation, Diarrhea Psychiatric: COMPLAINS OF: Confusion (Samantha Urbano) Past Family Social History Allergies: Coded Allergies: No Known Allergies (Verified Allergy, Unknown, 07/16/17) Past Medical History BPH HLD HTN neuropathy Past Surgical History cervical spine fusion-- after a fall in 2002 lower spinal fusion 2 yrs ago prostatectomy, May 2017 Active Ordered Medications Last Impressions Chest X-Ray 07/21/17 0600 Signed Impressions: Service Date/Time: Friday, July 21, 2017 10:28 - CONCLUSION: Over wall worsening lung exam with persistent complete opacification of the left upper lobe and progressive volume loss with increased parenchymal density within the remainder of the left lower lobe. Lida Eric MD Shoulder X-Ray 07/20/17 0000 Signed Impressions: Service Date/Time: Thursday, July 20, 2017 12:54 - CONCLUSION: No evidence of fracture. Cliff Lomeli MD Shoulder MRI 07/20/17 0000 Signed Impressions: Service Date/Time: Thursday, July 20, 2017 12:09 - CONCLUSION: 1. Abscess of the left lung apex again seen with anterior and posterior extension of abnormal enhancement and edema. There is extension of abscess anteriorly just inferior to the sternoclavicular joint. Elongated extension of abscess along the deep margin of the pectoralis muscle also noted. Extension of the edema and enhancement suggesting soft tissue infection in the region of the proximal coracobrachialis and biceps muscles. 2. No evidence of osteomyelitis. 3. Glenohumeral joint within normal limits. 4. Moderate acromioclavicular joint arthrosis. 5. Rotator cuff tendons are intact. Cliff Lomeli MD Abdomen X-Ray 07/19/17 0000 Signed Impressions: Service Date/Time: Wednesday, July 19, 2017 14:08 - CONCLUSION: Bowel distention as described above. There is no free air. Fredy Vega MD FACR Neck Magnetic Resonance Angiography 07/17/17 0000 Signed Impressions: Service Date/Time: Monday, July 17, 2017 09:00 - CONCLUSION: 1. Normal carotid arteries. Tahir Miramontes MD Head Magnetic Resonance Angiography 07/17/17 0000 Signed Impressions: Service Date/Time: Monday, July 17, 2017 09:00 - CONCLUSION: 1. No large vessel aneurysm or stenosis. 2. Normal variants as described above. Tahir Miramontes MD Thoracic Spine MRI 07/16/17 0000 Signed Impressions: Service Date/Time: Sunday, July 16, 2017 10:42 - CONCLUSION: 1. Multilevel disc spurs at T3-4, T5-T6 scan, most significantly at T9-10. Despite degenerative changes, there is no cord compromise at any thoracic level. No significant change from prior. 2. Possible loculated effusion in the left lung apex. Bonifacio Echeverria MD Lumbar Spine MRI 07/16/17 0000 Signed Impressions: Service Date/Time: Sunday, July 16, 2017 10:42 - CONCLUSION: 1. Stable CT scan of the lumbar spine compared to the prior examination of 07/29/2015. 2. No evidence to suggest discitis or osteomyelitis. 3. There continues to be spinal canal stenosis at L3-4 and L4-5 without significant change compared to the prior study. Fahad Garrido MD Head CT 07/16/17 0000 Signed Impressions: Service Date/Time: Sunday, July 16, 2017 07:04 - CONCLUSION: Unremarkable study. K. Paul Lind MD Chest CT 07/16/17 0000 Signed Impressions: Service Date/Time: Sunday, July 16, 2017 12:46 - CONCLUSION: 1. Complex loculated 5.9 cm fluid attenuation area at the left lung apex most characteristic of an abscess with extension into the extrathoracic soft tissues superiorly and extending supraclavicular with locules of air present in the supraclavicular region and within the chest lesion. There is a suspected surrounding pneumonia upper left lung. Cannot exclude necrotic neoplasm. This would be amenable to CT-guided aspiration. 2. Mildly enlarged mediastinal and left hilar lymph nodes. 3. Trace left pleural effusion. Ryan Byrnes MD Cervical Spine MRI 07/16/17 0000 Signed Impressions: Service Date/Time: Sunday, July 16, 2017 10:42 - CONCLUSION: 1. Stable overall appearance of the cervical spine compared to the prior examination of 07/28/2015. 2. Specifically, no evidence to suggest discitis or osteomyelitis. Fahad Garrido MD Brain MRI 07/16/17 0000 Signed Impressions: Service Date/Time: Sunday, July 16, 2017 10:42 - CONCLUSION: 1. 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 Vasquez Thayer MD Abdomen/Pelvis CT 07/16/17 0000 Signed Impressions: Service Date/Time: Sunday, July 16, 2017 12:49 - CONCLUSION: 1. Suprapubic catheter present presumably passing into bladder with thickened bladder wall. There is a Saxena catheter present with the balloon in the lower bladder or possibly within the prostatic region. Patient is reportedly status post prostatectomy. 2. Diffuse ileus. Stable renal cysts. 3. Mild inflammatory changes left lung base. Ryan Byrnes MD Family History Father- stroke Mother-heart disease, DM Sister-heart attack Social History BPH neuropathy -lives in home with brother - disable -Denies smoking, alcohol or illicit drug use (Samantha Urbano) Physical Exam Vital Signs Vital Signs Date Time Temp Pulse Resp B/P (MAP) Pulse Ox O2 Delivery O2 Flow Rate FiO2 07/23/17 08:20 97.4 87 20 195/88 (123) 95 07/23/17 06:12 97.3 84 20 169/99 (122) 99 07/23/17 01:51 177/78 (111) 07/23/17 00:05 98.3 85 18 206/90 (128) 99 07/23/17 00:00 97.9 87 20 205/92 (129) 99 07/22/17 21:43 98.0 86 20 178/84 (115) 97 07/22/17 18:02 97.6 88 20 168/92 (117) 97 Physical Exam SKIN: Warm and dry. HEAD: Atraumatic. Normocephalic. EYES: Pupils equal and round. No scleral icterus. No injection or drainage. ENT: No nasal bleeding or discharge. Mucous membranes pink and moist. NECK: Trachea midline. No JVD. CARDIOVASCULAR: Regular rate and rhythm. RESPIRATORY: No accessory muscle use. Clear to auscultation. Breath sounds equal bilaterally. GASTROINTESTINAL: Abdomen soft, non-tender, nondistended. Hepatic and splenic margins not palpable. Suprapubic cath MUSCULOSKELETAL: Extremities without clubbing, cyanosis, or edema. No obvious deformities. NEUROLOGICAL: Awake and alert. Delayed speech PSYCHIATRIC: Appropriate mood Laboratory Laboratory Tests Test 07/22/17 14:47 07/23/17 06:59 07/23/17 08:40 07/23/17 09:00 White Blood Count 12.7 12.9 Red Blood Count 3.61 3.61 Hemoglobin 8.1 7.8 Hematocrit 24.7 24.5 Mean Corpuscular Volume 68.4 67.9 Mean Corpuscular Hemoglobin 22.3 21.7 Mean Corpuscular Hemoglobin Concent 32.6 32.0 Red Cell Distribution Width 23.9 24.2 Platelet Count 429 440 Mean Platelet Volume 7.1 7.0 Neutrophils (%) (Auto) 76.4 72.5 Lymphocytes (%) (Auto) 14.3 17.4 Monocytes (%) (Auto) 7.3 7.7 Eosinophils (%) (Auto) 1.4 1.6 Basophils (%) (Auto) 0.6 0.8 Neutrophils # (Auto) 9.7 9.3 Lymphocytes # (Auto) 1.8 2.2 Monocytes # (Auto) 0.9 1.0 Eosinophils # (Auto) 0.2 0.2 Basophils # (Auto) 0.1 0.1 CBC Comment DIFF FINAL DIFF FINAL Differential Comment Blood Urea Nitrogen 13 15 Creatinine 2.69 2.71 Random Glucose 69 93 Total Protein 7.9 Albumin 1.7 Calcium Level 8.4 8.5 Alkaline Phosphatase 81 Aspartate Amino Transf (AST/SGOT) 43 Alanine Aminotransferase (ALT/SGPT) 31 Total Bilirubin 0.5 Sodium Level 145 145 Potassium Level 3.9 3.8 Chloride Level 114 113 Carbon Dioxide Level 26.9 25.2 Anion Gap 4 7 Estimat Glomerular Filtration Rate 30 29 Random Vancomycin Level 15.8 Urine Color LIGHT-YELLOW Urine Turbidity CLEAR Urine pH 6.5 Urine Specific [place] 1.007 Urine Protein NEG Urine Glucose (UA) NEG Urine Ketones NEG Urine Occult Blood SMALL Urine Nitrite NEG Urine Bilirubin NEG Urine Urobilinogen LESS THAN 2.0 Urine Leukocyte Esterase LARGE Urine RBC 18 Urine WBC 30 Urine Squamous Epithelial Cells <1 Urine Bacteria RARE Urine Hyaline Casts 3 Urine Granular Casts 1 Urine Mucus FEW Microscopic Urinalysis Comment CATH-CULTURE IND Urine Osmolality 350 Urine Random Sodium 149 Date/Time Source Procedure Growth Status 07/21/17 07:06 Blood Peripheral Aerobic Blood Culture - Preliminary NO GROWTH IN 1 DAY Resulted 07/21/17 07:06 Blood Peripheral Anaerobic Blood Culture - Preliminary NO GROWTH IN 1 DAY Resulted 07/21/17 10:10 Stool Stool Stool Occult Blood (TERRY) - Final HEMOCCULT NEGATIVE Complete 07/23/17 09:00 Urine Catheterized Urine Urine Culture Pending Received (Samantha Urbano) Result Diagram: 07/23/17 0659 07/23/17 0659 Assessment and Plan Problem List: (1) OLLIE (acute kidney injury) ICD Codes: N17.9 - Acute kidney failure, unspecified Plan: OLLIE with possibly ATN from sepsis, complicated UTI not confirmed and endocarditis. No previous history of Kidney disease. Suprapubic cath capped. Indwelling catheter Urine culture pending. Plan Renal US pending. Continue IVF;s Monitor I+O Avoid nephrotoxins. Monitor renal function Renal panel, mag, phos, in AM (2) HTN (hypertension) ICD Codes: I10 - Essential (primary) hypertension Status: Chronic Plan: Hypertensive. Amlodpine has been added today. Continue metoprolol and hydralazine PRN (Samantha Urbano) Problem List: (1) OLLIE (acute kidney injury) ICD Codes: N17.9 - Acute kidney failure, unspecified Plan: OLLIE with possibly ATN from sepsis, complicated UTI not confirmed and endocarditis. Other possibility is Vanco. toxicity and also to rule out Acute Interstitial Nephritis. No previous history of Kidney disease. Suprapubic cath capped. Indwelling catheter Urine culture pending. Plan Renal US pending. Continue IVF;s Monitor I+O Avoid nephrotoxins. Monitor renal function Renal panel, mag, phos, in AM. Urine for Eosinophils. Now on Daptomycin. (2) HTN (hypertension) ICD Codes: I10 - Essential (primary) hypertension Status: Chronic Plan: Hypertensive. Amlodpine has been added today. Continue metoprolol and hydralazine PRN (Dewey Marte MD) Problem Qualifiers (1) HTN (hypertension): Qualified Codes: I10 - Essential (primary) hypertension Samantha Urbano Jul 23, 2017 10:47 Dewey Marte MD Jul 23, 2017 21:02
[2017-07-23] MEDS: ENOXAPARIN SODIUM 40 MG/0.4 ML SYRINGE SQ SCH (11:00)
[2017-07-23] MEDS: ACETAMINOPHEN/HYDROcodone 325 MG/5 MG TAB PO PRN ×2 (11:39→23:15)
--- NOTE | 2017-07-23 12:57 | HHI.IDPN ---
Subjective Subjective Remarks ID COVERAGE Chart reviewed 57 year old diagnosed to have MRSA bacteremia and has MV IE Has loculated fluid collection in L apex, with some extension He is afebrile On NPO for IR procedure to his L apef fluid collection Only complaint is he feel slow Last (+) BC 07/19 Creatinine worsening - seen by renal One BM today Not SOB Weak Has bryan, good UO Antibiotics Current Medications Cubicin Medications (Trade) Dose Ordered Sig/Briseyda Route Start Time Stop Time Status Last Admin (NS Flush) 2 ml UNSCH PRN IV FLUSH 07/16/17 09:45 (NS Flush) 2 ml BID IV FLUSH 07/16/17 21:00 07/22/17 21:28 (Zofran Inj) 4 mg Q6H PRN IVP 07/16/17 09:45 (Lovenox Inj) 40 mg Q24H SQ 07/16/17 11:00 Future hold 07/21/17 11:40 (Milk Of Magnesia Liq) 30 ml Q12H PRN PO 07/16/17 09:45 (Senokot) 17.2 mg Q12H PRN PO 07/16/17 09:45 (Dulcolax Supp) 10 mg DAILY PRN RECTAL 07/16/17 09:45 (Lactulose Liq) 30 ml DAILY PRN PO 07/16/17 09:45 Potassium Chloride/Sodium Chloride 1,000 ml @ 165 mls/hr Q6H4M IV 07/16/17 09:45 07/23/17 11:38 (Narcan Inj) 0.4 mg UNSCH PRN IV PUSH 07/16/17 19:00 (Lipitor) 40 mg HS PO 07/17/17 21:00 07/22/17 21:28 ([place] 5-325 Mg) 1 tab Q6H PRN PO 07/17/17 16:30 07/23/17 11:39 (KCl) 40 meq Q12HR PO 07/20/17 12:15 07/23/17 08:49 (Apresoline) 10 mg Q6HR PRN PO 07/21/17 13:00 07/23/17 00:14 Daptomycin 750 mg/ Sodium Chloride 100 ml @ 200 mls/hr Q48H IV 07/24/17 17:00 (Lopressor) 50 mg Q12HR PO 07/23/17 09:00 07/23/17 08:45 (Norvasc) 5 mg DAILY PO 07/23/17 09:00 07/23/17 09:18 Lines PIV Past Medical History BPH neuropathy Past Surgical History cervical spine fusion-- after a fall in 2002 lower spinal fusion 2 yrs ago prostatectomy, May 2017 Allergies: Coded Allergies: No Known Allergies (Verified Allergy, Unknown, 07/16/17) Objective . Vital Signs Date Time Temp Pulse Resp B/P (MAP) Pulse Ox O2 Delivery O2 Flow Rate FiO2 07/23/17 08:20 97.4 87 20 195/88 (123) 95 07/23/17 06:12 97.3 84 20 169/99 (122) 99 07/23/17 01:51 177/78 (111) 07/23/17 00:05 98.3 85 18 206/90 (128) 99 07/23/17 00:00 97.9 87 20 205/92 (129) 99 07/22/17 21:43 98.0 86 20 178/84 (115) 97 07/22/17 18:02 97.6 88 20 168/92 (117) 97 . Laboratory Tests Test 07/22/17 14:47 07/23/17 06:59 White Blood Count 12.7 TH/MM3 12.9 TH/MM3 Red Blood Count 3.61 MIL/MM3 3.61 MIL/MM3 Hemoglobin 8.1 GM/DL 7.8 GM/DL Hematocrit 24.7 % 24.5 % Mean Corpuscular Volume 68.4 FL 67.9 FL Mean Corpuscular Hemoglobin 22.3 PG 21.7 PG Mean Corpuscular Hemoglobin Concent 32.6 % 32.0 % Red Cell Distribution Width 23.9 % 24.2 % Platelet Count 429 TH/MM3 440 TH/MM3 Mean Platelet Volume 7.1 FL 7.0 FL Neutrophils (%) (Auto) 76.4 % 72.5 % Lymphocytes (%) (Auto) 14.3 % 17.4 % Monocytes (%) (Auto) 7.3 % 7.7 % Eosinophils (%) (Auto) 1.4 % 1.6 % Basophils (%) (Auto) 0.6 % 0.8 % Neutrophils # (Auto) 9.7 TH/MM3 9.3 TH/MM3 Lymphocytes # (Auto) 1.8 TH/MM3 2.2 TH/MM3 Monocytes # (Auto) 0.9 TH/MM3 1.0 TH/MM3 Eosinophils # (Auto) 0.2 TH/MM3 0.2 TH/MM3 Basophils # (Auto) 0.1 TH/MM3 0.1 TH/MM3 CBC Comment DIFF FINAL DIFF FINAL Differential Comment Laboratory Tests Test 07/22/17 14:47 07/23/17 06:59 07/23/17 08:40 Blood Urea Nitrogen 13 MG/DL 15 MG/DL Creatinine 2.69 MG/DL 2.71 MG/DL Random Glucose 69 MG/DL 93 MG/DL Total Protein 7.9 GM/DL Albumin 1.7 GM/DL Calcium Level 8.4 MG/DL 8.5 MG/DL Alkaline Phosphatase 81 U/L Aspartate Amino Transf (AST/SGOT) 43 U/L Alanine Aminotransferase (ALT/SGPT) 31 U/L Total Bilirubin 0.5 MG/DL Sodium Level 145 MEQ/L 145 MEQ/L Potassium Level 3.9 MEQ/L 3.8 MEQ/L Chloride Level 114 MEQ/L 113 MEQ/L Carbon Dioxide Level 26.9 MEQ/L 25.2 MEQ/L Anion Gap 4 MEQ/L 7 MEQ/L Estimat Glomerular Filtration Rate 30 ML/MIN 29 ML/MIN Microbiology Date/Time Source Procedure Growth Status 07/21/17 07:06 Blood Peripheral Aerobic Blood Culture - Preliminary NO GROWTH IN 2 DAYS Resulted 07/21/17 07:06 Blood Peripheral Anaerobic Blood Culture - Preliminary NO GROWTH IN 2 DAYS Resulted 07/21/17 07:00 Blood Peripheral Aerobic Blood Culture - Preliminary NO GROWTH IN 2 DAYS Resulted 07/21/17 07:00 Blood Peripheral Anaerobic Blood Culture - Preliminary NO GROWTH IN 2 DAYS Resulted 07/21/17 10:10 Stool Stool Stool Occult Blood (TERRY) - Final HEMOCCULT NEGATIVE Complete 07/23/17 09:00 Urine Catheterized Urine Urine Culture Pending Received Imaging RADIOLOGY STUDIES/FILMS REVIEWED Chest X-Ray 07/21/17 0600 Signed Impressions: Service Date/Time: Friday, July 21, 2017 10:28 - CONCLUSION: Over wall worsening lung exam with persistent complete opacification of the left upper lobe and progressive volume loss with increased parenchymal density within the remainder of the left lower lobe. Lida Eric MD Shoulder X-Ray 07/20/17 0000 Signed Impressions: Service Date/Time: Thursday, July 20, 2017 12:54 - CONCLUSION: No evidence of fracture. Cliff Lomeli MD Shoulder MRI 07/20/17 0000 Signed Impressions: Service Date/Time: Thursday, July 20, 2017 12:09 - CONCLUSION: 1. Abscess of the left lung apex again seen with anterior and posterior extension of abnormal enhancement and edema. There is extension of abscess anteriorly just inferior to the sternoclavicular joint. Elongated extension of abscess along the deep margin of the pectoralis muscle also noted. Extension of the edema and enhancement suggesting soft tissue infection in the region of the proximal coracobrachialis and biceps muscles. 2. No evidence of osteomyelitis. 3. Glenohumeral joint within normal limits. 4. Moderate acromioclavicular joint arthrosis. 5. Rotator cuff tendons are intact. Cliff Lomeli MD Abdomen X-Ray 07/19/17 0000 Signed Impressions: Service Date/Time: Wednesday, July 19, 2017 14:08 - CONCLUSION: Bowel distention as described above. There is no free air. Fredy Vega MD FACR Neck Magnetic Resonance Angiography 07/17/17 0000 Signed Impressions: Service Date/Time: Monday, July 17, 2017 09:00 - CONCLUSION: 1. Normal carotid arteries. Tahir Miramontes MD Head Magnetic Resonance Angiography 07/17/17 0000 Signed Impressions: Service Date/Time: Monday, July 17, 2017 09:00 - CONCLUSION: 1. No large vessel aneurysm or stenosis. 2. Normal variants as described above. Tahir Miramontes MD Thoracic Spine MRI 07/16/17 0000 Signed Impressions: Service Date/Time: Sunday, July 16, 2017 10:42 - CONCLUSION: 1. Multilevel disc spurs at T3-4, T5-T6 scan, most significantly at T9-10. Despite degenerative changes, there is no cord compromise at any thoracic level. No significant change from prior. 2. Possible loculated effusion in the left lung apex. Bonifacio Echeverria MD Lumbar Spine MRI 07/16/17 0000 Signed Impressions: Service Date/Time: Sunday, July 16, 2017 10:42 - CONCLUSION: 1. Stable CT scan of the lumbar spine compared to the prior examination of 07/29/2015. 2. No evidence to suggest discitis or osteomyelitis. 3. There continues to be spinal canal stenosis at L3-4 and L4-5 without significant change compared to the prior study. Fahad Garrido MD Head CT 07/16/17 0000 Signed Impressions: Service Date/Time: Sunday, July 16, 2017 07:04 - CONCLUSION: Unremarkable study. Sree Lind MD Chest CT 07/16/17 0000 Signed Impressions: Service Date/Time: Sunday, July 16, 2017 12:46 - CONCLUSION: 1. Complex loculated 5.9 cm fluid attenuation area at the left lung apex most characteristic of an abscess with extension into the extrathoracic soft tissues superiorly and extending supraclavicular with locules of air present in the supraclavicular region and within the chest lesion. There is a suspected surrounding pneumonia upper left lung. Cannot exclude necrotic neoplasm. This would be amenable to CT-guided aspiration. 2. Mildly enlarged mediastinal and left hilar lymph nodes. 3. Trace left pleural effusion. Ryan Byrnes MD Cervical Spine MRI 07/16/17 0000 Signed Impressions: Service Date/Time: Sunday, July 16, 2017 10:42 - CONCLUSION: 1. Stable overall appearance of the cervical spine compared to the prior examination of 07/28/2015. 2. Specifically, no evidence to suggest discitis or osteomyelitis. Fahad Garrido MD Brain MRI 07/16/17 0000 Signed Impressions: Service Date/Time: Sunday, July 16, 2017 10:42 - CONCLUSION: 1. 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 Vasquez Thayer MD Abdomen/Pelvis CT 07/16/17 0000 Signed Impressions: Service Date/Time: Sunday, July 16, 2017 12:49 - CONCLUSION: 1. Suprapubic catheter present presumably passing into bladder with thickened bladder wall. There is a Bryan catheter present with the balloon in the lower bladder or possibly within the prostatic region. Patient is reportedly status post prostatectomy. 2. Diffuse ileus. Stable renal cysts. 3. Mild inflammatory changes left lung base. Ryan Byrnes MD Physical Exam GENERAL: Obese, well developed, awake and alert male, up in chair, not in distress SKIN: Cool, moist, not diaphoretic. No rash HEENT: Pale conjunctiva, no petechia or hemorrhage, full EOM, dry oral mucosa NECK: Supple and not tender CARDIOVASCULAR: Regular rate and rhythm, no murmurs, or rubs. RESPIRATORY/CHEST: Clear to auscultation. Breath sounds equal bilaterally. No wheezes, rales, or rhonchi. CHEST with ill defined edema, tenderness in L upper aspect GASTROINTESTINAL: Abdomen soft, obese, non-tender, nondistended. No guarding. Bowel sounds present. GENITOURINARY: SP cath is capped. Bryan in place, with some sediment MUSCULOSKELETAL: Extremities without clubbing, cyanosis, + 1 edema. No joint tenderness or effusion noted. No calf tenderness. NEUROLOGICAL: Awake and alert. Motor and sensory grossly within normal limits. Follows commands. Less confused, speech is clear but not always coherent LUE weakness PSYCHIATRIC: Cooperative LINE: No evidence of infection Assessment & Plan Remarks MRSA sepsis, high grade with embolic brain lesions, with confirmed mitral valve endocarditis - last (+) BC 07/19; 07/21 negative so far Complex loculated 5.9 cm fluid attenuation area at the left lung apex most characteristic of an abscess with extension into the extrathoracic soft tissues - MRI showed again Abscess of the left lung apex again seen with anterior and posterior extension of abnormal enhancement and edema. There is extension of abscess anteriorly just inferior to the sternoclavicular joint. Elongated extension of abscess along the deep margin of the pectoralis muscle also noted. 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
--- NOTE | 2017-07-23 13:30 | RADRPT ---
EXAM DATE/TIME: 07/23/2017 10:36 [facility] COMPARISON: No previous studies available for comparison. INDICATIONS : Obstruction. MEDICAL HISTORY : BPH. Cardiac disorders. Inguinal hernia. SURGICAL HISTORY : Fusion, cervical. Prostatectomy. ENCOUNTER: Initial ACUITY: 1 day PAIN SCORE: 4/10 LOCATION: Bilateral flank MEASUREMENTS: RIGHT KIDNEY: 11.5 x 5.6 x 6.2 cm LEFT KIDNEY: 10.9 x 5.3 x 7.7 cm FINDINGS: RIGHT KIDNEY: Renal cortex is normal in thickness and increased echotexture. No hydronephrosis, stone, or mass. S imple cyst in the lower pole measures 18 x 18 x 18 mm. Echogenic non-shadowing lesion within the righ t mid kidney measures 14 x 14 x 11 mm. LEFT KIDNEY: Renal cortex is normal in thickness and increased echotexture. No hydronephrosis, stone, or mass. S imple cysts in the upper pole measures 49 x 41 x 44 mm and within the mid kidney measures 19 x 19 x 1 9 mm. BLADDER: Suprapubic catheter decompresses urinary bladder. CONCLUSION: 1. Kidneys are echogenic which can be seen with medical renal disease. 2. Echogenic lesion right mid kidney likely represents angiomyolipoma versus less likely calculus. 3. Bilateral renal cysts. Tahir Miramontes MD on July 23, 2017 at 13:19 Board Certified Radiologist. This report was verified electronically.
[2017-07-23 14:42] LABS: BICARBONATE 24.6 MEQ/L (21.0-32.0); CALCIUM 8.3 MG/DL (8.5-10.1); CREATININE 2.61 MG/DL (0.60-1.30)
--- NOTE | 2017-07-23 15:31 | HHI.PR ---
Subjective Remarks alert weak Objective Vital Signs Date Time Temp Pulse Resp B/P (MAP) Pulse Ox O2 Delivery O2 Flow Rate FiO2 07/23/17 12:46 98.3 82 20 150/59 (89) 99 07/23/17 08:20 97.4 87 20 195/88 (123) 95 07/23/17 06:12 97.3 84 20 169/99 (122) 99 07/23/17 01:51 177/78 (111) 07/23/17 00:05 98.3 85 18 206/90 (128) 99 07/23/17 00:00 97.9 87 20 205/92 (129) 99 07/22/17 21:43 98.0 86 20 178/84 (115) 97 07/22/17 18:02 97.6 88 20 168/92 (117) 97 I/O 07/22/17 07/22/17 07/22/17 07/23/17 07/23/17 07/23/17 07:00 15:00 23:00 07:00 15:00 23:00 Intake Total 1000 ml 0 ml Output Total 2000 ml 1600 ml 1400 ml Balance -1000 ml -1600 ml -1400 ml Intake Oral 0 ml IV Total 1000 ml Output Urine Total 2000 ml 1600 ml 1400 ml # Bowel Movements 0 2 Result Diagram: 07/23/17 0659 07/23/17 1350 Objective Remarks GENERAL: SKIN: Warm and dry. HEAD: Atraumatic. Normocephalic. EYES: Pupils equal and round. No scleral icterus. No injection or drainage. ENT: No nasal bleeding or discharge. Mucous membranes pink and moist. NECK: Trachea midline. No JVD. CARDIOVASCULAR: Regular rate and rhythm. RESPIRATORY: No accessory muscle use. Clear to auscultation. Breath sounds equal bilaterally. GASTROINTESTINAL: Abdomen soft, non-tender, nondistended. Hepatic and splenic margins not palpable. MUSCULOSKELETAL: Extremities without clubbing, cyanosis, or edema. No obvious deformities. NEUROLOGICAL: Awake and alert. No obvious cranial nerve deficits. Motor grossly within normal limits. Five out of 5 muscle strength in the arms and legs. Normal speech. PSYCHIATRIC: Appropriate mood and affect; insight and judgment normal. Assessment and Plan Assessment and Plan left lung abscess endocarditis embolic stroke plan o2 antibx thoracic surgery to see Drew Russell MD Jul 23, 2017 15:31
[2017-07-23] MEDS ORDERED: LIDOCAINE HCL 1% 20 ML VIAL ONE (16:17)
[2017-07-23] MEDS ORDERED: MIDAZOLAM HCL 2 MG/2 ML VIAL ONE (16:21)
--- NOTE | 2017-07-23 17:26 | PD.RAD ---
Post CT Procedure Prog Note Pre Procedure Diagnosis: (1) Empyema lung Post Procedure Diagnosis: (1) Empyema lung Procedure Date: Jul 23, 2017 Supervising Radiologist: Tahir Miramontes Proceduralist/Assist: jennifer power Estimated blood loss: none Anesthesia: Conscious Sedation Plan of Activity Patient to Unit: ROPU Patient Condition: Good See PACS Report for procedural detail/treatment Tahir Miramontes MD Jul 23, 2017 17:26
[2017-07-23] MEDS: ATORVASTATIN 40 MG TAB PO SCH (23:14)
[2017-07-24 01:25] VITALS: BP 177/81; PULSE 80; RESP 20; TEMP 97.2; O2SAT 98
[2017-07-24 05:15] VITALS: BP 178/80; PULSE 73; RESP 19; TEMP 98; O2SAT 100
[2017-07-24 07:27] LABS: AUTOMATED NEUTROPHIL # 8.2 TH/MM3 (1.8-7.7); BASOPHIL # 0.1 TH/MM3 (0-0.2); BASOPHIL % 1.3 % (0.0-2.0); EOSINOPHIL # 0.2 TH/MM3 (0-0.4); EOSINOPHIL % 1.9 % (0.0-4.0); HEMATOCRIT 27.4 % (39.0-51.0); HEMOGLOBIN 8.8 GM/DL (13.0-17.0); LYMPH % 17.9 % (9.0-44.0); MEAN CORPUSCULAR HEMOGLOBIN 21.8 PG (27.0-34.0); MEAN CORPUSCULAR HGB CONC 32.1 % (32.0-36.0); MEAN PLATELET VOLUME 6.8 FL (7.0-11.0); MONO % 6.4 % (0.0-8.0); MONOCYTE # 0.7 TH/MM3 (0-0.9); NEUT % 72.5 % (16.0-70.0); PLATELET COUNT 416 TH/MM3 (150-450); RED BLOOD COUNT 4.03 MIL/MM3 (4.50-5.90); RED CELL DISTRIBUTION WIDTH 23.7 % (11.6-17.2); WHITE BLOOD COUNT 11.3 TH/MM3 (4.0-11.0)
[2017-07-24 07:39] LABS: BICARBONATE 25.9 MEQ/L (21.0-32.0); CALCIUM 8.3 MG/DL (8.5-10.1); CREATININE 2.43 MG/DL (0.60-1.30)
--- NOTE | 2017-07-24 07:51 | RADRPT ---
EXAM DATE/TIME: 07/23/2017 16:48 [facility] COMPARISON: CT THORAX W CONTRAST, July 16, 2017, 12:46. INDICATIONS : Left apical empyema SEDATION TIME: 40 minutes MEDICATION(S): 1.) 2 mg midazolam (Versed) IV 2.) 100 mcg fentanyl (Sublimaze) IV DEVICE(S): 1.) Skater 7fr FLUID: Total volume of 25 cc of cloudy, yellow fluid was removed. Fluid was sent for laboratory ordered studies. MEDICAL HISTORY : BPH SURGICAL HISTORY : Prostatectomy. Inguinal hernia repair. ENCOUNTER: Initial ACUITY: 1 day PAIN SCORE: 4/10 LOCATION: Left chest PROCEDURE: 1.) Conscious sedation with continuous EKG and oximetry monitoring. PROCEDURE : 1. CT guided drainage of the empyema in the left apex 2. Conscious sedation with continuous EKG and oximetry monitoring. The risks, benefits and alternatives to the procedure were explained and verbal and written consent w as obtained. Using automated exposure control and adjustment of the mA and/or kV according to patient size, radiation dose was kept as low as reasonably achievable to obtain optimal diagnostic quality i mages. The site was prepped in sterile fashion. Full sterile technique was used, including cap, ma sk, sterile gloves and gown and a large sterile sheet. Hand hygiene and 2% chlorhexidine and/or beta dine/alcohol prep was utilized per protocol for cutaneous antisepsis. The skin and subcutaneous tiss ues were infiltrated with local anesthetic solution. DICOM format image data is available electronic ally for review and comparison. Using CT guidance the prescribed site was localized. Drainage was performed using the prescribed cat heter The patient tolerated the procedure well and there were no complications. Conscious sedation was per formed with the prescribed dosages and duration as above in the presence of an independent trained ra diology nurse to assist in the monitoring of the patient. EKG and oximetry remained stable throughou t the procedure. The patient tolerated the procedure well and there were no complications. The patient was sent to pos t anesthesia recovery in stable condition. CONCLUSION: Uncomplicated CT guided drainage of the empyema in the left apex. Tahir Miramontes MD on July 24, 2017 at 7:47 Board Certified Radiologist. This report was verified electronically.
[2017-07-24 08:00] VITALS: BP 127/89; PULSE 79; RESP 18; TEMP 98; O2SAT 99
--- NOTE | 2017-07-24 08:52 | HHI.FPPN ---
Subjective Remarks Patient seen and examined bedside this morning. Patient went to his IR aspiration of abscess yesterday. He states he was sedated and has had no complications since the aspiration. Patient states his left shoulder pain has greatly improved since yesterday. He denies any nausea/vomiting. He denies any chest pain/shortness breath/dizziness. (Evangelina Jones MD R2) Objective Vitals Vital Signs Date Time Temp Pulse Resp B/P (MAP) Pulse Ox O2 Delivery O2 Flow Rate FiO2 07/24/17 08:00 98.0 79 18 127/89 (102) 99 07/24/17 05:15 98.0 73 19 178/80 (112) 100 07/24/17 01:25 97.2 80 20 177/81 (113) 98 07/23/17 20:46 97.6 74 18 130/84 (99) 100 07/23/17 20:00 97.6 74 20 130/84 (99) 100 07/23/17 18:05 73 18 163/88 (113) 98 07/23/17 17:50 74 18 161/89 (113) 97 07/23/17 17:35 97.0 75 18 158/91 (113) 97 07/23/17 16:49 97.6 80 20 163/91 (115) 99 07/23/17 12:46 98.3 82 20 150/59 (89) 99 I/O 07/23/17 07/23/17 07/23/17 07/24/17 07/24/17 07/24/17 07:00 15:00 23:00 07:00 15:00 23:00 Intake Total 825 ml 175 ml Output Total 1400 ml 1300 ml Balance -1400 ml 825 ml -1125 ml IV Total 825 ml 175 ml Output Urine Total 1400 ml 1300 ml (Evangelina Jones MD R2) Result Diagram: 07/24/17 0638 07/24/17 0638 Objective Remarks GENERAL: Patient awake laying in bed comfortably in no acute distress. SKIN: . Cool and dry. Patient was rolled onto his side and his back was observed with no visible ulcerations, bruising appreciated. HEAD: Atraumatic. Normocephalic. EYES: Extraocular motions intact. No scleral icterus. No injection or drainage. ENT: Nose without bleeding, purulent drainage or septal hematoma. Airway patent. NECK: Trachea midline. No JVD or lymphadenopathy. Supple, nontender, no meningeal signs. Pt with scar from prior surgery on posterior neck CARDIOVASCULAR: Regular rate and rhythm without murmurs, gallops, or rubs. RESPIRATORY: Good air movement BL. No wheezes or crackles appreciated GASTROINTESTINAL: Abdomen soft, non-tender, non-distended. Supra pubic catheter in place MUSCULOSKELETAL: Extremities without clubbing, cyanosis, or edema. + Tenderness over right pectoralis muscle and right shoulder (decreased from prior exams). Limitation of right shoulder motion due to pain. No joint tenderness, effusion , or edema noted. No calf tenderness. Negative Homans sign bilaterally. Normal sensation. NEUROLOGICAL: Cranial nerves II through XII intact. 5/5 muscle strength on R Upper Ext. 4/5 on Right LE, 4/5 on L upper ext, 2/5 on Left LE (same as previous exams). Normal speech. (Evangelina Jones MD R2) A/P Assessment and Plan Patient is 57-year-old M with PMHx BPH and s/p prostatectomy (on 05/2017) presented to the ED with 2 wks of progressive worsening left side pain and weakness associated with GAINES. Urologist Dr. Patel, completed the surgery. Pt found to have Left apical lung mass with supraclavicular extension on imaging and focal embolic in in brain MRI. Pt is currently being treated for MRSA bacteremia. ALEX results positive for small mitral valve vegetation, likely resulting in the septic emboli to the brain. Pt had IR Aspiration of apical lung mass on 07/24 Discharge Planning time frame unclear (Evangelina Jones MD R2) Attending Attestation Patient seen and examined, discussed with resident team. I agree with assessment and management as documented and discussed with me. (Marilyn Chiu MD) Problem List: (1) Bacteremia due to Gram-positive bacteria ICD Codes: R78.81 - Bacteremia Plan: Blood cultures on admission (07/16): Positive for MRSA. Repeat cultures on 07/19 continued to grow MRSA Repeat cultures 07/21: NG x 2 days Repeat cultures 07/23: pending History of rectal temp of 102.5, and ESR of 140 on admission and CRP 37 now afebrile 5.9 cm abscess with suspected pneumonia surrounding f/u results of IR aspiration cx -Infectious disease consulted and Pulm Consulted, appreciate recommendations; cont Vanc Urine Cx 07/16: Negative f/u repeat Ucx 07/23 f/u repeat blood cx f/u IR aspiration high-grade with embolic brain lesions, likely underlying endocarditis in view of ALEX Embolic stroke with left-sided hemiplegia -Echo negative for endocarditis ALEX results: Mitral valve was structurally normal, but there was evidence of a small mobile mitral valve vegetation. Borderline normal left ventricular systolic function. Trace regurgitation of mitral and tricuspid valve. Trace pulmonary insufficiency (2) Endocarditis ICD Codes: I38 - Endocarditis, valve unspecified Plan: see plan above for bacteremia (3) OLLIE (acute kidney injury) ICD Codes: N17.9 - Acute kidney failure, unspecified Plan: Elevated creatinine appreciated on 07/21, no stable (creatinine 0.97 - > 1.92 --> 2.69 --> 2.71 --> 2.43) BUN WNL No known history of CKD, hx of BPH and prostatectomy in May 2017, suprapubic catheter placement with inability to void and subsequently capped and urethral catheter placed ATN via medication (IV Vanc) vs. Post-obstructive uropathy -renal u/s: kidneys echogenic, medical renal disease likely - f/u nephro consult recs - f/u renal panel, mag, phos, eosinophils Continue IV fluids at 165 mL /hr 1.5 maintenance (4) Left-sided weakness ICD Codes: R53.1 - Weakness Status: Acute Plan: L sided weakness/severe pain, worse at L shoulder Septic arthritis versus mass effect -neuro checks Q4h -Out of bed with assistance -PT to evaluate, recommendations: Continue physical therapy at rehabilitation and OT therapy. -Will submit OT referral for evaluation Imaging: -MRI lumbar spine: no osteomyelitis, spinal canal stenosis at L3-L5, no significant change from prior study -MRI thoracic spine: multilevel disc spurs at T3-4 and T5-T6 and T9-10, no cord compression, no significant change from prior study -MRI brain: Small focal infarcts likely embolic in the right occipital lobe and right parietal high convexities near the vertex. - Head MRA normal - Echo: EF of 50%. Trace tricuspid valve regurgitation. Otherwise normal echo. - ALEX: small mitral valve vegetation (5) SIRS (systemic inflammatory response syndrome) ICD Codes: R65.10 - Systemic inflammatory response syndrome (SIRS) of non- infectious origin without acute organ dysfunction Plan: On admission Pt with elevated white count at 23.2, Temp:102.1. Lactic acid 1.8. afebrile since 07/16, WBC 11 -possible source of infection lungs vs cardiac vegetation: Patient found to have lung abscess at left apex and mitral valve vegetation. -See Bacteremia - Cont Vanc / changed to daptomycin by pharmacy due to OLLIE -continue to monitor VS (6) Lung mass ICD Codes: R91.8 - Other nonspecific abnormal finding of lung field Status: Acute Plan: Likely abscess related to MRSA bacteremia, less likely neoplasm -CT aspiration to be avoided due to high-risk region of aspiration, will f/u with IR if he is not clinically improving -pulm and ID consulted, recommendation appreciated -- f/u IR abscess culture and continue drainage Chest CT 07/16/17: Complex loculated 5.9 cm fluid attenuation area at the left lung apex most characteristic of an abscess stanchion into the extrathoracic soft tissues superiorly and extending supraclavicular with locules of air present in the supraclavicular region and within the chest lesion. There is a suspected surrounding pneumonia upper left lung. Cannot exclude necrotic neoplasm. This would be amenable to CT guided aspiration. Mildly enlarged mediastinal and left hilar lymph nodes. Trace left pleural effusion. CRX 07/16: 5cm masslike opacity at the left apex -CXR (07/19): Stable from previous imaging (7) Focal infarction of brain ICD Codes: I63.9 - Cerebral infarction, unspecified Plan: Brain MRI with findings consistent with small focal infarcts, likely embolic in the right occipital lobe and right parietal high convexities near the vertex. Based on patient history, likely have been present for 2 weeks+ -Head CT within normal limits -Neck MRA normal -PT and OT consulted -Continue statin -Monitor vitals, keep BP controlled -PRN hydralazine 10 mg po per HTN protocol (8) HTN (hypertension) ICD Codes: I10 - Essential (primary) hypertension Status: Chronic Plan: Elevated blood pressures up to 205/92 on 07/23, markedly increased from admission No reported history of hypertension, normotensive at time of admission Continue metoprolol tartrate 50 mg twice a day Continue amlodipine 5 daily Continue hydralazine as needed for systolic blood pressures >180, diastolic blood pressures >100 If blood pressures continue to increase will consider transfer to [facility] for nicardipine drip (9) Hypokalemia ICD Codes: E87.6 - Hypokalemia Status: Resolved Plan: IV fluids with potassium supplementation -K WNL on 07/21 at 3.7 -magnesium (2.8) and phosphorus (3.6) -Continue to monitor, follow-up a.m. labs (10) UTI (urinary tract infection) ICD Codes: N39.0 - Urinary tract infection, site not specified Status: Resolved Plan: -Pt with suprapubic catheter, capped -Urethral catheter in place, urine output appropriate (based on 0.5 mL/kg/h) -Urine culture 07/16: No growth in 48 hours - f/u repeat Ucx: 07/23: pending -See antibiotics above (11) Elevated LFTs ICD Codes: R79.89 - Other specified abnormal findings of blood chemistry Plan: Slightly elevated AST on admission -stable thus far -f/u CMP -Continue to monitor (12) Abdominal pain ICD Codes: R10.9 - Unspecified abdominal pain Plan: Patient with loose stools since 07/18 KUB 07/19: Bowel distention of large and small bowel. Large bowel dilated 10 cm. Small bowel dilated to 3.6 C. difficile negative (13) Nutrition, metabolism, and development symptoms ICD Codes: R63.8 - Other symptoms and signs concerning food and fluid intake Plan: Fluids: 165 mls/hr with K Electrolytes: K WNL, replete as needed. Nutrition: regular diet DVT ppx: lovenox (Evangelina Jones MD R2) Problem Qualifiers (1) HTN (hypertension): Qualified Codes: I10 - Essential (primary) hypertension (2) UTI (urinary tract infection): Qualified Codes: T83.511S - Infection and inflammatory reaction due to indwelling urethral catheter, sequela; N39.0 - Urinary tract infection, site not specified Evangelina Jones MD R2 Jul 24, 2017 08:52 Marilyn Chiu MD Jul 25, 2017 14:05
[2017-07-24] MEDS: SODIUM CHLORIDE 0.9% FLUSH 10 ML FLUSH IV FLUSH SCH ×2 (09:00→20:53)
[2017-07-24] MEDS: NS + KCL 20 MEQ INJ 1,000 ML IV SCH ×4 (09:13→20:54)
--- NOTE | 2017-07-24 09:42 | RADRPT ---
EXAM DATE/TIME: 07/24/2017 08:40 [facility] COMPARISON: CHEST PA & LAT, July 21, 2017, 10:28. INDICATIONS : Pneumothorax. MEDICAL HISTORY : Hypertension. SURGICAL HISTORY : Fusion, cervical. ENCOUNTER: Subsequent ACUITY: 1 week PAIN SCORE: 0/10 LOCATION: chest FINDINGS: A single frontal expiratory view of the chest was performed. Left apical density. A small caliber kory st tube noted. Right lung is clear. The cardio-mediastinal contours and bronchopulmonary markings are unremarkable for an expiratory exam . Osseous structures are intact. CONCLUSION: No pneumothorax. Decreasing density left apex. Tahir Miramontes MD on July 24, 2017 at 9:39 Board Certified Radiologist. This report was verified electronically.
[2017-07-24] MEDS: METOPROLOL TARTRATE 50 MG TAB PO SCH ×2 (10:09→20:52)
[2017-07-24] MEDS: amLODIPine BESYLATE 5 MG TAB PO SCH (10:09)
[2017-07-24] MEDS: POTASSIUM CHLORIDE 10 MEQ CONTROLLED RELEASE TAB PO SCH ×2 (10:09→20:53)
[2017-07-24] MEDS: ENOXAPARIN SODIUM 40 MG/0.4 ML SYRINGE SQ SCH (11:00)
[2017-07-24 11:20] LABS: ALBUMIN 1.9 GM/DL (3.4-5.0); DIRECT BILIRUBIN ADULT 0.2 MG/DL (0.0-0.2)
[2017-07-24 11:22] LABS: INDIRECT BILIRUBIN 0.4 MG/DL (0.0-0.8); TOTAL BILIRUBIN ADULT 0.6 MG/DL (0.2-1.0); TOTAL PROTEIN 8.6 GM/DL (6.4-8.2)
[2017-07-24 12:00] VITALS: BP 181/87; PULSE 80; RESP 18; TEMP 97.3; O2SAT 98
[2017-07-24 16:00] VITALS: BP 178/96; PULSE 82; RESP 18; TEMP 98.1; O2SAT 97
--- NOTE | 2017-07-24 16:05 | HHI.NPPN ---
Subjective Renal Failure: Acute History of Present Illness Patient is 57-year-old with PMHx BPH and s/p prostatectomy (on 05/2017) presented to the ED with 2 wks of progressive worsening left side pain and weakness associated with GAINES. Pt follows with urologist Dr. Patel, who completed the surgery. Per records patient had suprapubic catheter placed in May. After prostatectomy pt was unable to void and received 2nd (07/01/2017 ) surgery for placement of urethral catheter. At that time supra pubic catheter was capped. Over the last couple of days there is a significant rise in creatinine at 2.71 today from 0.97 on admission. Has indwelling urinary catheter that is draining urine. Being treated for MRSA sepsis, high grade with embolic brain lesions, with confirmed mitral valve endocarditis persistently positive blood clx. Vancomycin discontinued and on daptomycin. Additional Remarks Patient denies any SOB. Minimal lower extremity edema. CT left chest wall (Samantha Urbano) Review of Systems Respiratory Respiratory Remarks Denies SOB (Samantha Urbano) Cardiovascular Cardiac Remarks Denies CP (Samantha Urbano) Gastrointestinal GI Remarks denies any Abdominal pain (Samantha Urbano) Genitourinary Remarks Denies dysuria (Samantha Urbano) Objective Data Data Vital Signs Date Time Temp Pulse Resp B/P (MAP) Pulse Ox O2 Delivery O2 Flow Rate FiO2 07/24/17 12:00 97.3 80 18 181/87 (118) 98 07/24/17 08:00 98.0 79 18 127/89 (102) 99 07/24/17 05:15 98.0 73 19 178/80 (112) 100 07/24/17 01:25 97.2 80 20 177/81 (113) 98 07/23/17 20:46 97.6 74 18 130/84 (99) 100 07/23/17 20:00 97.6 74 20 130/84 (99) 100 07/23/17 18:05 73 18 163/88 (113) 98 07/23/17 17:50 74 18 161/89 (113) 97 07/23/17 17:35 97.0 75 18 158/91 (113) 97 07/23/17 16:49 97.6 80 20 163/91 (288) 99 ([facility]ano[facility]lie [facility] -: 07/24/17 0638 07/24/17 0638 Microbiology 07/23/17 Gram Stain - Final, Resulted 07/23/17 Body Fluid Culture - Preliminary, Resulted S. Aureus [facility] Last Impressions Chest X-Ray 07/24/17 0000 Signed Impressions: Service Date/Time: Monday, July 24, 2017 08:40 - CONCLUSION: No pneumothorax. Decreasing density left apex. Tahir Miramontes MD Renal Ultrasound 07/23/17 0000 Signed Impressions: Service Date/Time: Sunday, July 23, 2017 10:36 - CONCLUSION: 1. Kidneys are echogenic which can be seen with medical renal disease. 2. Echogenic lesion right mid kidney likely represents angiomyolipoma versus less likely calculus. 3. Bilateral renal cysts. Tahir Miramontes MD Abscess Drainage CT 07/23/17 0000 Signed Impressions: Service Date/Time: Sunday, July 23, 2017 16:48 - CONCLUSION: Uncomplicated CT guided drainage of the empyema in the left apex. Tahir Miramontes MD Shoulder X-Ray 07/20/17 0000 Signed Impressions: Service Date/Time: Thursday, July 20, 2017 12:54 - CONCLUSION: No evidence of fracture. Cliff Lomeli MD Shoulder MRI 07/20/17 0000 Signed Impressions: Service Date/Time: Thursday, July 20, 2017 12:09 - CONCLUSION: 1. Abscess of the left lung apex again seen with anterior and posterior extension of abnormal enhancement and edema. There is extension of abscess anteriorly just inferior to the sternoclavicular joint. Elongated extension of abscess along the deep margin of the pectoralis muscle also noted. Extension of the edema and enhancement suggesting soft tissue infection in the region of the proximal coracobrachialis and biceps muscles. 2. No evidence of osteomyelitis. 3. Glenohumeral joint within normal limits. 4. Moderate acromioclavicular joint arthrosis. 5. Rotator cuff tendons are intact. Cliff Lomeli MD Abdomen X-Ray 07/19/17 0000 Signed Impressions: Service Date/Time: Wednesday, July 19, 2017 14:08 - CONCLUSION: Bowel distention as described above. There is no free air. Fredy Vega MD FACR Neck Magnetic Resonance Angiography 07/17/17 Signed Impressions: Service Date/Time: Monday, July 17, 2017 09:00 - CONCLUSION: 1. Normal carotid arteries. Tahir Miramontes MD Head Magnetic Resonance Angiography 07/17/17 Signed Impressions: Service Date/Time: Monday, July 17, 2017 09:00 - CONCLUSION: 1. No large vessel aneurysm or stenosis. 2. Normal variants as described above. Tahir Miramontes MD Thoracic Spine MRI 07/16/17 0000 Signed Impressions: Service Date/Time: Sunday, July 16, 2017 10:42 - CONCLUSION: 1. Multilevel disc spurs at T3-4, T5-T6 scan, most significantly at T9-10. Despite degenerative changes, there is no cord compromise at any thoracic level. No significant change from prior. 2. Possible loculated effusion in the left lung apex. Bonifacio Echeverria MD Lumbar Spine MRI 07/16/17 Signed Impressions: Service Date/Time: Sunday, July 16, 2017 10:42 - CONCLUSION: 1. Stable CT scan of the lumbar spine compared to the prior examination of 07/29/2015. 2. No evidence to suggest discitis or osteomyelitis. 3. There continues to be spinal canal stenosis at L3-4 and L4-5 without significant change compared to the prior study. Fahad Garrido MD Head CT 07/16/17 Signed Impressions: Service Date/Time: Sunday, July 16, 2017 07:04 - CONCLUSION: Unremarkable study. Sree Lind MD Chest CT 07/16/17 0000 Signed Impressions: Service Date/Time: Sunday, July 16, 2017 12:46 - CONCLUSION: 1. Complex loculated 5.9 cm fluid attenuation area at the left lung apex most characteristic of an abscess with extension into the extrathoracic soft tissues superiorly and extending supraclavicular with locules of air present in the supraclavicular region and within the chest lesion. There is a suspected surrounding pneumonia upper left lung. Cannot exclude necrotic neoplasm. This would be amenable to CT-guided aspiration. 2. Mildly enlarged mediastinal and left hilar lymph nodes. 3. Trace left pleural effusion. Ryan Byrnes MD Cervical Spine MRI 07/16/17 0000 Signed Impressions: Service Date/Time: Sunday, July 16, 2017 10:42 - CONCLUSION: 1. Stable overall appearance of the cervical spine compared to the prior examination of 07/28/2015. 2. Specifically, no evidence to suggest discitis or osteomyelitis. Fahad Garrido MD Brain MRI 07/16/17 0000 Signed Impressions: Service Date/Time: Sunday, July 16, 2017 10:42 - CONCLUSION: 1. 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 Vasquez Thayer MD Abdomen/Pelvis CT 07/16/17 0000 Signed Impressions: Service Date/Time: Sunday, July 16, 2017 12:49 - CONCLUSION: 1. Suprapubic catheter present presumably passing into bladder with thickened bladder wall. There is a Saxena catheter present with the balloon in the lower bladder or possibly within the prostatic region. Patient is reportedly status post prostatectomy. 2. Diffuse ileus. Stable renal cysts. 3. Mild inflammatory changes left lung base. Ryan Byrnes MD (Samantha Urbano) Physical Exam General Appearance: Obese (Samantha Urbano M. SEAM SEWER) Eyes Eye Exam: Pupils Equal (Samantha UrbanoP) Throat Throat Exam: Oral Mucosa [place] & Moist (Samantha Urbano. SEAM SEWER) Pulmonary Resp Exam: Breath Sounds Equal, No Distress, Decreased Bases (Samantha Urbano M. SEAM SEWER) Cardiology CV Exam: Regular, Normal Sinus Rhythm (Samantha Urbano. SEAM SEWER) Gastrointestinal/Abdomen GI Exam: Soft, Bowel Sounds Present (Samantha Urbano. SEAM SEWER) Genitourinary Exam: Flank Non-Tender (Samantha Urbano. SEAM SEWER) Integumentary Skin Exam: Clear, Warm (Samantha Urbano. SEAM SEWER) Extremeties Extremities Exam: Trace Edema (Samantha Urbano. SEAM SEWER) Neurologic Neuro Exam: Alert, Awake (Samantha Urbano. SEAM SEWER) Psychiatric Psych Exam: Appropriate Responses (Samantha UrbanoP) Assessment/Plan Problem List: (1) OLLIE (acute kidney injury) ICD Codes: N17.9 - Acute kidney failure, unspecified Plan: OLLIE with possibly ATN from sepsis, complicated UTI not confirmed and endocarditis. Other possibility is Vanco. toxicity and also to rule out Acute Interstitial Nephritis. No previous history of Kidney disease. Suprapubic cath capped. Indwelling catheter Renal US: Kidneys are echogenic which can be seen with medical renal disease, Echogenic lesion right mid kidney likely represents angiomyolipoma versus less likely calculus and Bilateral renal cysts. Creatinine slightly improved at 2.43 from 2.61 Plan Continue IVF;s Monitor I+O Avoid nephrotoxins. Monitor renal function Urine for Eosinophils. Now on Daptomycin. (2) HTN (hypertension) ICD Codes: I10 - Essential (primary) hypertension Status: Chronic Plan: Hypertensive. Amlodpine has been added today. Continue metoprolol and hydralazine PRN (Samantha Urbano) Problem List: (1) OLLIE (acute kidney injury) ICD Codes: N17.9 - Acute kidney failure, unspecified Plan: OLLIE with possibly ATN from sepsis, complicated UTI not confirmed and endocarditis. Other possibility is Vanco. toxicity and also to rule out Acute Interstitial Nephritis. No previous history of Kidney disease. Suprapubic cath capped. Indwelling catheter Renal US: Kidneys are echogenic which can be seen with medical renal disease, Echogenic lesion right mid kidney likely represents angiomyolipoma versus less likely calculus and Bilateral renal cysts. Creatinine slightly improved at 2.43 from 2.61 Plan Continue IVF;s Monitor I+O Avoid nephrotoxins. Monitor renal function Urine for Eosinophils still pending. Now on Daptomycin. Patient seen and examined, agree with above. Creatinine started getting better. (2) HTN (hypertension) ICD Codes: I10 - Essential (primary) hypertension Status: Chronic Plan: Hypertensive. Amlodpine has been added today. Continue metoprolol and hydralazine PRN (Dewey Marte MD) Problem Qualifiers (1) HTN (hypertension): Qualified Codes: I10 - Essential (primary) hypertension Samantha Urbano Jul 24, 2017 16:05 Dewey Marte MD Jul 24, 2017 18:06
[2017-07-24] MEDS: DAPTOmycin INJ 750 MG in SODIUM CHLORIDE 0.9% INJ 100 ML IV SCH (17:40)
[2017-07-24 20:00] VITALS: BP 162/77; PULSE 86; RESP 17; TEMP 97.4; O2SAT 98
[2017-07-24] MEDS: ATORVASTATIN 40 MG TAB PO SCH (20:53)
[2017-07-25] VITALS: BP 196/91; PULSE 73; RESP 22; TEMP 97.4; O2SAT 98
[2017-07-25] MEDS: NS + KCL 20 MEQ INJ 1,000 ML IV SCH (00:05)
[2017-07-25] MEDS: hydrALAZINE HCL 10 MG TAB PO PRN (00:49)
[2017-07-25] MEDS: ACETAMINOPHEN/HYDROcodone 325 MG/5 MG TAB PO PRN (00:50)
[2017-07-25 04:00] VITALS: BP 149/73; PULSE 71; RESP 17; TEMP 98.4; O2SAT 99
[2017-07-25 07:30] LABS: AUTOMATED NEUTROPHIL # 8.5 TH/MM3 (1.8-7.7); BASOPHIL # 0.1 TH/MM3 (0-0.2); BASOPHIL % 0.8 % (0.0-2.0); EOSINOPHIL # 0.3 TH/MM3 (0-0.4); EOSINOPHIL % 2.2 % (0.0-4.0); HEMATOCRIT 26.2 % (39.0-51.0); HEMOGLOBIN 8.5 GM/DL (13.0-17.0); LYMPH % 22.1 % (9.0-44.0); LYMPHOCYTE # 2.8 TH/MM3 (1.0-4.8); MEAN CELL VOLUME 68.1 FL (80.0-100.0); MEAN CORPUSCULAR HEMOGLOBIN 22.1 PG (27.0-34.0); MEAN CORPUSCULAR HGB CONC 32.5 % (32.0-36.0); MEAN PLATELET VOLUME 7.1 FL (7.0-11.0); MONO % 7.7 % (0.0-8.0); NEUT % 67.2 % (16.0-70.0); PLATELET COUNT 459 TH/MM3 (150-450); RED BLOOD COUNT 3.85 MIL/MM3 (4.50-5.90); RED CELL DISTRIBUTION WIDTH 24.6 % (11.6-17.2); WHITE BLOOD COUNT 12.7 TH/MM3 (4.0-11.0)
[2017-07-25 08:03] VITALS: BP 148/72; PULSE 76; RESP 21; TEMP 97.2; O2SAT 98
[2017-07-25 08:04] LABS: BICARBONATE 26.5 MEQ/L (21.0-32.0); CALCIUM 9.1 MG/DL (8.5-10.1); CREATININE 2.48 MG/DL (0.60-1.30)
[2017-07-25] MEDS: SODIUM CHLORIDE 0.9% FLUSH 10 ML FLUSH IV FLUSH SCH ×2 (09:00→21:00)
[2017-07-25] MEDS: METOPROLOL TARTRATE 50 MG TAB PO SCH ×2 (09:10→21:13)
[2017-07-25] MEDS: amLODIPine BESYLATE 5 MG TAB PO SCH (09:11)
[2017-07-25] MEDS: POTASSIUM CHLORIDE 10 MEQ CONTROLLED RELEASE TAB PO SCH ×2 (09:11→21:12)
--- NOTE | 2017-07-25 10:09 | HHI.NPPN ---
Subjective Renal Failure: Acute History of Present Illness Patient is 57-year-old with PMHx BPH and s/p prostatectomy (on 05/2017) presented to the ED with 2 wks of progressive worsening left side pain and weakness associated with GANIES. Pt follows with urologist Dr. Patel, who completed the surgery. Per records patient had suprapubic catheter placed in May. After prostatectomy pt was unable to void and received 2nd (07/01/2017 ) surgery for placement of urethral catheter. At that time supra pubic catheter was capped. Over the last couple of days there is a significant rise in creatinine at 2.71 today from 0.97 on admission. Has indwelling urinary catheter that is draining urine. Being treated for MRSA sepsis, high grade with embolic brain lesions, with confirmed mitral valve endocarditis persistently positive blood clx. Vancomycin discontinued and on daptomycin. Additional Remarks Reports that he is feeling better today. Patient denies any SOB. CT left chest wall (Samantha Urbano) Review of Systems Respiratory Respiratory Remarks Denies SOB (Samantha Urbano) Cardiovascular Cardiac Remarks Denies CP (Samantha Urbano) Gastrointestinal GI Remarks denies any Abdominal pain (Samantha Urbano) Genitourinary Remarks Denies dysuria (Samanhta Urbano) Objective Data Data 07/25/17 07/26/17 19:00 07:00 Output Total 1800 ml Balance -1800 ml Output Urine Total 1800 ml # Bowel Movements 0 Vital Signs Date Time Temp Pulse Resp B/P (MAP) Pulse Ox O2 Delivery O2 Flow Rate FiO2 07/25/17 08:03 97.2 76 21 148/72 (97) 98 07/25/17 04:00 98.4 71 17 149/73 (98) 99 07/25/17 00:00 97.4 73 22 196/91 (126) 98 07/24/17 20:00 97.4 86 17 162/77 (105) 98 07/24/17 16:00 98.1 82 18 178/96 (123) 97 07/24/17 12:00 97.3 80 18 181/87 (118) 98 (Samantha Urbano) -: 07/25/17 0620 07/25/17 0620 Physical Exam General Appearance: Obese (Samantha Urbano) Eyes Eye Exam: Pupils Equal (Samantha UrbanoP) Throat Throat Exam: Oral Mucosa [place] & Moist (Samantha Urbano) Pulmonary Resp Exam: Breath Sounds Equal, No Distress, Decreased Bases (Samantha UrbanoP) Cardiology CV Exam: Regular, Normal Sinus Rhythm (Samantha UrbanoP) Gastrointestinal/Abdomen GI Exam: Soft, Bowel Sounds Present (Samantha UrbanoP) Genitourinary Exam: Flank Non-Tender (Samantha Urbano) Integumentary Skin Exam: Clear, Warm (aSmantha Urbano) Extremeties Extremities Exam: Trace Edema (Samantha Urbano) Neurologic Neuro Exam: Alert, Awake (Samantha Urbano) Psychiatric Psych Exam: Appropriate Responses (Samantha Urbano) Assessment/Plan Problem List: (1) OLLIE (acute kidney injury) ICD Codes: N17.9 - Acute kidney failure, unspecified Plan: OLLIE with possibly ATN from sepsis, complicated UTI not confirmed and endocarditis. Other possibility is Vanco. toxicity and also to rule out Acute Interstitial Nephritis. No previous history of Kidney disease. Suprapubic cath capped. Indwelling catheter No SOB, no Edema Renal US: Kidneys are echogenic which can be seen with medical renal disease, Echogenic lesion right mid kidney likely represents angiomyolipoma versus less likely calculus and Bilateral renal cysts. Creatinine essentially unchanged at 2.48 Plan Continue IVF;s Monitor I+O Avoid nephrotoxins. Monitor renal function Urine for Eosinophils still pending. On Daptomycin. (2) HTN (hypertension) ICD Codes: I10 - Essential (primary) hypertension Status: Chronic Plan: Hypertensive. Amlodpine increased Continue metoprolol and hydralazine PRN (Samantha Urbano) Problem List: (1) OLLIE (acute kidney injury) ICD Codes: N17.9 - Acute kidney failure, unspecified Plan: OLLIE with possibly ATN from sepsis, complicated UTI not confirmed and endocarditis. Other possibility is Vanco. toxicity and also to rule out Acute Interstitial Nephritis. No previous history of Kidney disease. Suprapubic cath capped. Indwelling catheter No SOB, no Edema Renal US: Kidneys are echogenic which can be seen with medical renal disease, Echogenic lesion right mid kidney likely represents angiomyolipoma versus less likely calculus and Bilateral renal cysts. Creatinine essentially unchanged at 2.48 Plan Continue IVF;s Monitor I+O Avoid nephrotoxins. Monitor renal function Urine for Eosinophils still pending. On Daptomycin. Patient seen and examined, agree with above.. (2) HTN (hypertension) ICD Codes: I10 - Essential (primary) hypertension Status: Chronic Plan: Hypertensive. Amlodpine increased Continue metoprolol and hydralazine PRN (Dewey Marte MD) Problem Qualifiers (1) HTN (hypertension): Qualified Codes: I10 - Essential (primary) hypertension Samantha Urbano Jul 25, 2017 10:09 Dewey Marte MD Jul 25, 2017 12:44
--- NOTE | 2017-07-25 11:14 | HHI.IDPN ---
Subjective Subjective Remarks ID COVERAGE Chart reviewed 57 year old diagnosed to have MRSA bacteremia and has MV IE Has loculated fluid collection in L apex, with some extension Notes reviewed D/W RN He is afebrile No new complaint Has percutaneous cath in L apex - empyema drained, got 12 cc purulent fluid, has not put out much, has small amount of sanguineous fluid in tubing Fluid C/S also with MRSA Last (+) BC 07/19 Creatinine prob plateau Not SOB Weak Has bryan, good UO Antibiotics Current Medications Cubicin Medications (Trade) Dose Ordered Sig/Briseyda Route Start Time Stop Time Status Last Admin (NS Flush) 2 ml UNSCH PRN IV FLUSH 07/16/17 09:45 (NS Flush) 2 ml BID IV FLUSH 07/16/17 21:00 07/23/17 23:16 (Zofran Inj) 4 mg Q6H PRN IVP 07/16/17 09:45 (Lovenox Inj) 40 mg Q24H SQ 07/16/17 11:00 Future hold 07/24/17 11:00 (Milk Of Magnesia Liq) 30 ml Q12H PRN PO 07/16/17 09:45 (Senokot) 17.2 mg Q12H PRN PO 07/16/17 09:45 (Dulcolax Supp) 10 mg DAILY PRN RECTAL 07/16/17 09:45 (Lactulose Liq) 30 ml DAILY PRN PO 07/16/17 09:45 Potassium Chloride/Sodium Chloride 1,000 ml @ 165 mls/hr Q6H4M IV 07/16/17 09:45 07/24/17 17:40 (Narcan Inj) 0.4 mg UNSCH PRN IV PUSH 07/16/17 19:00 (Lipitor) 40 mg HS PO 07/17/17 21:00 07/24/17 20:53 (Tamaroa 5-325 Mg) 1 tab Q6H PRN PO 07/17/17 16:30 07/25/17 00:50 (KCl) 40 meq Q12HR PO 07/20/17 12:15 07/25/17 09:11 (Apresoline) 10 mg Q6HR PRN PO 07/21/17 13:00 07/25/17 00:49 Daptomycin 750 mg/ Sodium Chloride 100 ml @ 200 mls/hr Q48H IV 07/24/17 17:00 07/24/17 17:40 (Lopressor) 50 mg Q12HR PO 07/23/17 09:00 07/25/17 09:10 (Norvasc) 10 mg DAILY PO 07/26/17 09:00 Lines PIV Past Medical History BPH neuropathy Past Surgical History cervical spine fusion-- after a fall in 2002 lower spinal fusion 2 yrs ago prostatectomy, May 2017 Allergies: Coded Allergies: No Known Allergies (Verified Allergy, Unknown, 07/16/17) Objective . Vital Signs Date Time Temp Pulse Resp B/P (MAP) Pulse Ox O2 Delivery O2 Flow Rate FiO2 07/25/17 08:03 97.2 76 21 148/72 (97) 98 07/25/17 04:00 98.4 71 17 149/73 (98) 99 07/25/17 00:00 97.4 73 22 196/91 (126) 98 07/24/17 20:00 97.4 86 17 162/77 (105) 98 07/24/17 16:00 98.1 82 18 178/96 (123) 97 07/24/17 12:00 97.3 80 18 181/87 (118) 98 07/25/17 07/25/17 07/26/17 15:00 23:00 07:00 Output Total 1800 ml Balance -1800 ml Output Urine Total 1800 ml # Bowel Movements 0 . Laboratory Tests Test 07/24/17 06:38 07/25/17 06:20 White Blood Count 11.3 TH/MM3 12.7 TH/MM3 Red Blood Count 4.03 MIL/MM3 3.85 MIL/MM3 Hemoglobin 8.8 GM/DL 8.5 GM/DL Hematocrit 27.4 % 26.2 % Mean Corpuscular Volume 68.0 FL 68.1 FL Mean Corpuscular Hemoglobin 21.8 PG 22.1 PG Mean Corpuscular Hemoglobin Concent 32.1 % 32.5 % Red Cell Distribution Width 23.7 % 24.6 % Platelet Count 416 TH/MM3 459 TH/MM3 Mean Platelet Volume 6.8 FL 7.1 FL Neutrophils (%) (Auto) 72.5 % 67.2 % Lymphocytes (%) (Auto) 17.9 % 22.1 % Monocytes (%) (Auto) 6.4 % 7.7 % Eosinophils (%) (Auto) 1.9 % 2.2 % Basophils (%) (Auto) 1.3 % 0.8 % Neutrophils # (Auto) 8.2 TH/MM3 8.5 TH/MM3 Lymphocytes # (Auto) 2.0 TH/MM3 2.8 TH/MM3 Monocytes # (Auto) 0.7 TH/MM3 1.0 TH/MM3 Eosinophils # (Auto) 0.2 TH/MM3 0.3 TH/MM3 Basophils # (Auto) 0.1 TH/MM3 0.1 TH/MM3 CBC Comment DIFF FINAL DIFF FINAL Differential Comment Laboratory Tests Test 07/23/17 13:50 07/24/17 06:38 07/25/17 06:20 Blood Urea Nitrogen 16 MG/DL 17 MG/DL 19 MG/DL Creatinine 2.61 MG/DL 2.43 MG/DL 2.48 MG/DL Random Glucose 88 MG/DL 75 MG/DL 81 MG/DL Calcium Level 8.3 MG/DL 8.3 MG/DL 9.1 MG/DL Sodium Level 144 MEQ/L 145 MEQ/L 139 MEQ/L Potassium Level 4.2 MEQ/L 4.6 MEQ/L 4.2 MEQ/L Chloride Level 112 MEQ/L 112 MEQ/L 106 MEQ/L Carbon Dioxide Level 24.6 MEQ/L 25.9 MEQ/L 26.5 MEQ/L Anion Gap 7 MEQ/L 7 MEQ/L 7 MEQ/L Estimat Glomerular Filtration Rate 31 ML/MIN 33 ML/MIN 32 ML/MIN Magnesium Level 2.0 MG/DL Total Bilirubin 0.6 MG/DL Direct Bilirubin 0.2 MG/DL Indirect Bilirubin 0.4 MG/DL Aspartate Amino Transf (AST/SGOT) 54 U/L Alanine Aminotransferase (ALT/SGPT) 39 U/L Alkaline Phosphatase 81 U/L Total Protein 8.6 GM/DL Albumin 1.9 GM/DL Microbiology Date/Time Source Procedure Growth Status 07/23/17 13:49 Blood Peripheral Aerobic Blood Culture - Preliminary NO GROWTH IN 1 DAY Resulted 07/23/17 13:49 Blood Peripheral Anaerobic Blood Culture - Preliminary NO GROWTH IN 1 DAY Resulted 07/23/17 17:20 Fluid Pleural Fluid Gram Stain - Final Complete 07/23/17 17:20 Body Fluid Culture - Final S. Aureus Mrsa Complete 07/23/17 09:00 Urine Catheterized Urine Urine Culture - Final NO GROWTH IN 48 HOURS. Complete Imaging RADIOLOGY STUDIES/FILMS REVIEWED Chest X-Ray 07/21/17 0600 Signed Impressions: Service Date/Time: Friday, July 21, 2017 10:28 - CONCLUSION: Over wall worsening lung exam with persistent complete opacification of the left upper lobe and progressive volume loss with increased parenchymal density within the remainder of the left lower lobe. Lida Eric MD Shoulder X-Ray 07/20/17 0000 Signed Impressions: Service Date/Time: Thursday, July 20, 2017 12:54 - CONCLUSION: No evidence of fracture. Cliff Lomeli MD Shoulder MRI 07/20/17 0000 Signed Impressions: Service Date/Time: Thursday, July 20, 2017 12:09 - CONCLUSION: 1. Abscess of the left lung apex again seen with anterior and posterior extension of abnormal enhancement and edema. There is extension of abscess anteriorly just inferior to the sternoclavicular joint. Elongated extension of abscess along the deep margin of the pectoralis muscle also noted. Extension of the edema and enhancement suggesting soft tissue infection in the region of the proximal coracobrachialis and biceps muscles. 2. No evidence of osteomyelitis. 3. Glenohumeral joint within normal limits. 4. Moderate acromioclavicular joint arthrosis. 5. Rotator cuff tendons are intact. Cliff Lomeli MD Abdomen X-Ray 07/19/17 0000 Signed Impressions: Service Date/Time: Wednesday, July 19, 2017 14:08 - CONCLUSION: Bowel distention as described above. There is no free air. Fredy Vega MD FACR Neck Magnetic Resonance Angiography 07/17/17 0000 Signed Impressions: Service Date/Time: Monday, July 17, 2017 09:00 - CONCLUSION: 1. Normal carotid arteries. Tahir Miramontes MD Head Magnetic Resonance Angiography 07/17/17 0000 Signed Impressions: Service Date/Time: Monday, July 17, 2017 09:00 - CONCLUSION: 1. No large vessel aneurysm or stenosis. 2. Normal variants as described above. Tahir Miramontes MD Thoracic Spine MRI 07/16/17 0000 Signed Impressions: Service Date/Time: Sunday, July 16, 2017 10:42 - CONCLUSION: 1. Multilevel disc spurs at T3-4, T5-T6 scan, most significantly at T9-10. Despite degenerative changes, there is no cord compromise at any thoracic level. No significant change from prior. 2. Possible loculated effusion in the left lung apex. Bonifacio Echeverria MD Lumbar Spine MRI 07/16/17 Signed Impressions: Service Date/Time: Sunday, July 16, 2017 10:42 - CONCLUSION: 1. Stable CT scan of the lumbar spine compared to the prior examination of 07/29/2015. 2. No evidence to suggest discitis or osteomyelitis. 3. There continues to be spinal canal stenosis at L3-4 and L4-5 without significant change compared to the prior study. Fahad Garrido MD Head CT 07/16/17 Signed Impressions: Service Date/Time: Sunday, July 16, 2017 07:04 - CONCLUSION: Unremarkable study. Sree Lind MD Chest CT 07/16/17 Signed Impressions: Service Date/Time: Sunday, July 16, 2017 12:46 - CONCLUSION: 1. Complex loculated 5.9 cm fluid attenuation area at the left lung apex most characteristic of an abscess with extension into the extrathoracic soft tissues superiorly and extending supraclavicular with locules of air present in the supraclavicular region and within the chest lesion. There is a suspected surrounding pneumonia upper left lung. Cannot exclude necrotic neoplasm. This would be amenable to CT-guided aspiration. 2. Mildly enlarged mediastinal and left hilar lymph nodes. 3. Trace left pleural effusion. yRan Byrnes MD Cervical Spine MRI 07/16/17 0000 Signed Impressions: Service Date/Time: Sunday, July 16, 2017 10:42 - CONCLUSION: 1. Stable overall appearance of the cervical spine compared to the prior examination of 07/28/2015. 2. Specifically, no evidence to suggest discitis or osteomyelitis. Fahad Garrido MD Brain MRI 07/16/17 0000 Signed Impressions: Service Date/Time: Sunday, July 16, 2017 10:42 - CONCLUSION: 1. 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 Vasquez Thayer MD Abdomen/Pelvis CT 07/16/17 0000 Signed Impressions: Service Date/Time: Sunday, July 16, 2017 12:49 - CONCLUSION: 1. Suprapubic catheter present presumably passing into bladder with thickened bladder wall. There is a Bryan catheter present with the balloon in the lower bladder or possibly within the prostatic region. Patient is reportedly status post prostatectomy. 2. Diffuse ileus. Stable renal cysts. 3. Mild inflammatory changes left lung base. Ryan Byrnes MD Physical Exam GENERAL: Obese, well developed, awake and alert, not in distress SKIN: Cool, moist, not diaphoretic. No rash HEENT: Pale conjunctiva, no petechia or hemorrhage, full EOM, dry oral mucosa NECK: Supple and not tender CARDIOVASCULAR: Regular rate and rhythm, no murmurs, or rubs. RESPIRATORY/CHEST: Clear to auscultation. Breath sounds equal bilaterally. No wheezes, rales, or rhonchi. Has CT in L upper back GASTROINTESTINAL: Abdomen soft, obese, non-tender, nondistended. No guarding. Bowel sounds present. GENITOURINARY: SP cath is capped. Bryan in place, with some sediment MUSCULOSKELETAL: Extremities without clubbing, cyanosis, + 1 edema. No joint tenderness or effusion noted. No calf tenderness. NEUROLOGICAL: Awake and alert. Follows commands. 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
[2017-07-25] MEDS: ENOXAPARIN SODIUM 40 MG/0.4 ML SYRINGE SQ SCH (11:43)
[2017-07-25 11:55] VITALS: BP 124/66; PULSE 85; RESP 20; TEMP 97.6; O2SAT 97
[2017-07-25] MEDS: LINEZOLID 600 MG TAB PO SCH ×2 (12:50→21:12)
--- NOTE | 2017-07-25 15:06 | HHI.FPPN ---
Subjective Remarks No acute events overnight. Patient continues to be hypertensive (highest at 196/ 91 at midnight with the last 3 blood pressure readings having systolic blood pressures less than 150, diastolic less than 73). Patient is feeling much better this morning, states his shoulder pain continues to improve. Denies shortness of breath, abdominal pain, nausea or vomiting. (Javy Hernandez MD R1) Objective Vitals Vital Signs Date Time Temp Pulse Resp B/P (MAP) Pulse Ox O2 Delivery O2 Flow Rate FiO2 07/25/17 11:55 97.6 85 20 124/66 (85) 97 07/25/17 08:03 97.2 76 21 148/72 (97) 98 07/25/17 04:00 98.4 71 17 149/73 (98) 99 07/25/17 00:00 97.4 73 22 196/91 (126) 98 07/24/17 20:00 97.4 86 17 162/77 (105) 98 07/24/17 16:00 98.1 82 18 178/96 (123) 97 I/O 07/24/17 07/24/17 07/24/17 07/25/17 07/25/17 07/25/17 07:00 15:00 23:00 07:00 15:00 23:00 Intake Total 175 ml 200 ml Output Total 3300 ml 1000 ml 1800 ml Balance -3125 ml -1000 ml -1600 ml IV Total 175 ml 200 ml Output Urine Total 3300 ml 1000 ml 1800 ml # Bowel Movements 1 0 (Javy Hernandez MD R1) Result Diagram: 07/25/17 0620 07/25/17 0620 Objective Remarks GENERAL: Patient awake laying in bed comfortably in no acute distress. SKIN: . Cool and dry. HEAD: Atraumatic. Normocephalic. EYES: Extraocular motions intact. No scleral icterus. No injection or drainage. ENT: Nose without bleeding, purulent drainage or septal hematoma. Airway patent. NECK: Trachea midline. No JVD or lymphadenopathy. Supple, nontender, no meningeal signs. CARDIOVASCULAR: Regular rate and rhythm without murmurs, gallops, or rubs. RESPIRATORY: Good air movement BL. No wheezes or crackles appreciated GASTROINTESTINAL: Abdomen soft, non-tender, non-distended. Supra pubic catheter in place MUSCULOSKELETAL: Extremities without clubbing, cyanosis, or edema. + Tenderness over left pectoralis muscle and right shoulder (decreased from prior exams). Limitation of left shoulder motion due to pain. Strain on the posterior aspect of the left shoulder in place with clean dry and intact bandage overlying it. No joint tenderness, effusion, or edema noted. No calf tenderness. Negative Homans sign bilaterally. Normal sensation. NEUROLOGICAL: Cranial nerves II through XII grossly intact. Somewhat slurred speech/difficult to understand but unchanged from previous exams. (Javy Hernandez MD R1) A/P Assessment and Plan Patient is 57-year-old M with PMHx BPH and s/p prostatectomy (on 05/2017) presented to the ED with 2 wks of progressive worsening left side pain and weakness associated with GAINES. Urologist Dr. Patel, completed the surgery. Pt found to have Left apical lung mass with supraclavicular extension on imaging and focal embolic in in brain MRI. Pt is currently being treated for MRSA bacteremia. ALEX results positive for small mitral valve vegetation, likely resulting in the septic emboli to the brain. Pt had IR Aspiration of apical lung mass on 07/24 Seen and discussed with Dr. Chiu Discharge Planning time frame unclear (Javy Hernandez MD R1) Attending Attestation Patient seen, examined, and discussed with resident team. I agree with assessment and management as documented and discussed with me. (Marilyn Chiu MD) Problem List: (1) Bacteremia due to Gram-positive bacteria ICD Codes: R78.81 - Bacteremia Plan: Blood cultures on admission (07/16): Positive for MRSA. Repeat cultures on 07/19 continued to grow MRSA Repeat cultures 07/21: NG 4 days Repeat cultures 07/23: NG x 2 days Urine Cx 07/16: Negative Repeat Ucx 07/23: Negative History of rectal temp of 102.5, and ESR of 140 on admission and CRP 37 now afebrile 5.9 cm abscess with suspected pneumonia surrounding IR aspiration cultures from 07/23 growing MRSA -Infectious disease consulted and Pulm Consulted, appreciate recommendations; Received vancomycin from 07/16 - 07/21 Switched to daptomycin on 07/22 by ID Received Zosyn from 07/16-07/20 Started Linezolid on 07/25 by ID high-grade with embolic brain lesions, likely underlying endocarditis in view of ALEX Embolic stroke with left-sided hemiplegia -Echo negative for endocarditis ALEX results: Mitral valve was structurally normal, but there was evidence of a small mobile mitral valve vegetation. Borderline normal left ventricular systolic function. Trace regurgitation of mitral and tricuspid valve. Trace pulmonary insufficiency (2) Endocarditis ICD Codes: I38 - Endocarditis, valve unspecified Plan: see plan above for bacteremia (3) OLLIE (acute kidney injury) ICD Codes: N17.9 - Acute kidney failure, unspecified Plan: Elevated creatinine appreciated on 07/21, no stable (creatinine 0.97 - > 1.92 --> 2.69 --> 2.71 --> 2.43 -->2.48) BUN WNL No known history of CKD, hx of BPH and prostatectomy in May 2017, suprapubic catheter placement with inability to void and subsequently capped and urethral catheter placed ATN via medication (IV Vanc) vs. Post-obstructive uropathy -renal u/s: kidneys echogenic, medical renal disease likely -Nephrology consultation, appreciate recommendations IV fluids at 100 mL/hr (4) Lung mass ICD Codes: R91.8 - Other nonspecific abnormal finding of lung field Status: Acute Plan: Likely abscess related to MRSA bacteremia, less likely neoplasm -Pulm and ID consulted, recommendation appreciated - IR abscess culture and continue drainage on 07/23 Cultures growing MRSA -Drain in place with minimal output over the last 24 hours -Ordering CT chest on 07/26. If no fluid accumulation persist, can plan to suction /clamp drain and plan for removal Chest CT 07/16/17: Complex loculated 5.9 cm fluid attenuation area at the left lung apex most characteristic of an abscess stanchion into the extrathoracic soft tissues superiorly and extending supraclavicular with locules of air present in the supraclavicular region and within the chest lesion. There is a suspected surrounding pneumonia upper left lung. Cannot exclude necrotic neoplasm. This would be amenable to CT guided aspiration. Mildly enlarged mediastinal and left hilar lymph nodes. Trace left pleural effusion. CRX 07/16: 5cm masslike opacity at the left apex -CXR (07/19): Stable from previous imaging CXR (07/21): Persistent complete opacification of left upper lobe and progressive volume loss with increased parenchymal density within the remainder of the left lower lobe CXR (07/23): No pneumothorax, decreasing density in the left apex (5) HTN (hypertension) ICD Codes: I10 - Essential (primary) hypertension Status: Chronic Plan: Elevated blood pressures up to 205/92 on 07/23, markedly increased from admission No reported history of hypertension, normotensive at time of admission Continues to have occasional elevated pressures, as high as 196 systolic over the last 24 hours. The last 3 blood pressure readings are less than 150 systolic Continue metoprolol tartrate 50 mg twice a day Increase amlodipine to 10 mg daily per nephrology recommendations Continue hydralazine as needed for systolic blood pressures >180, diastolic blood pressures >100 (6) Focal infarction of brain ICD Codes: I63.9 - Cerebral infarction, unspecified Plan: Brain MRI with findings consistent with small focal infarcts, likely embolic in the right occipital lobe and right parietal high convexities near the vertex. Based on patient history, likely have been present for 2 weeks+ -Head CT within normal limits -Neck MRA normal -PT and OT consulted -Continue statin -Monitor vitals, keep BP controlled (7) Left-sided weakness ICD Codes: R53.1 - Weakness Status: Acute Plan: L sided weakness/severe pain, worse at L shoulder Septic arthritis versus mass effect -neuro checks Q4h -Out of bed with assistance -PT to evaluate, recommendations: Continue physical therapy at rehabilitation and OT therapy. -Will submit OT referral for evaluation Imaging: -MRI lumbar spine: no osteomyelitis, spinal canal stenosis at L3-L5, no significant change from prior study -MRI thoracic spine: multilevel disc spurs at T3-4 and T5-T6 and T9-10, no cord compression, no significant change from prior study -MRI brain: Small focal infarcts likely embolic in the right occipital lobe and right parietal high convexities near the vertex. - Head MRA normal - Echo: EF of 50%. Trace tricuspid valve regurgitation. Otherwise normal echo. - ALEX: small mitral valve vegetation (8) Nutrition, metabolism, and development symptoms ICD Codes: R63.8 - Other symptoms and signs concerning food and fluid intake Plan: Fluids: 100 mls/hr with K Electrolytes: WNL, replete as needed. Nutrition: regular diet DVT ppx: lovenox (Javy Hernandez MD R1) Problem Qualifiers (1) HTN (hypertension): Qualified Codes: I10 - Essential (primary) hypertension Javy Hernandez MD R1 Jul 25, 2017 15:06 Marilyn Chiu MD Jul 26, 2017 07:05
[2017-07-25 16:28] VITALS: BP 141/62; PULSE 89; RESP 20; TEMP 97.9; O2SAT 95
[2017-07-25] MEDS: SODIUM CHLOR 0.9% 1000 ML INJ 1,000 ML IV SCH (17:12)
[2017-07-25 20:30] VITALS: BP 145/64; PULSE 80; RESP 19; TEMP 98.1; O2SAT 99
[2017-07-25] MEDS: ATORVASTATIN 40 MG TAB PO SCH (21:13)
[2017-07-26] VITALS: BP 146/80; PULSE 94; RESP 18; TEMP 98.7; O2SAT 99
[2017-07-26] MEDS: SODIUM CHLOR 0.9% 1000 ML INJ 1,000 ML IV SCH ×3 (00:32→20:32)
[2017-07-26 04:20] VITALS: BP 144/89; PULSE 89; RESP 20; TEMP 97.1; O2SAT 99
[2017-07-26 07:35] LABS: AUTOMATED NEUTROPHIL # 8.9 TH/MM3 (1.8-7.7); BASOPHIL # 0.2 TH/MM3 (0-0.2); BASOPHIL % 1.6 % (0.0-2.0); EOSINOPHIL # 0.3 TH/MM3 (0-0.4); EOSINOPHIL % 2.2 % (0.0-4.0); HEMATOCRIT 25.8 % (39.0-51.0); HEMOGLOBIN 8.3 GM/DL (13.0-17.0); LYMPH % 23.6 % (9.0-44.0); LYMPHOCYTE # 3.2 TH/MM3 (1.0-4.8); MEAN CELL VOLUME 67.7 FL (80.0-100.0); MEAN CORPUSCULAR HEMOGLOBIN 21.7 PG (27.0-34.0); MEAN CORPUSCULAR HGB CONC 32.1 % (32.0-36.0); MEAN PLATELET VOLUME 7.2 FL (7.0-11.0); MONO % 6.7 % (0.0-8.0); MONOCYTE # 0.9 TH/MM3 (0-0.9); NEUT % 65.9 % (16.0-70.0); PLATELET COUNT 471 TH/MM3 (150-450); RED BLOOD COUNT 3.81 MIL/MM3 (4.50-5.90); RED CELL DISTRIBUTION WIDTH 23.9 % (11.6-17.2); WHITE BLOOD COUNT 13.5 TH/MM3 (4.0-11.0)
[2017-07-26 07:52] LABS: ALBUMIN 2.1 GM/DL (3.4-5.0); AST (GOT) 75 U/L (15-37); BICARBONATE 20.8 MEQ/L (21.0-32.0); BLOOD UREA NITROGEN 28 MG/DL (7-18); CHLORIDE 108 MEQ/L (98-107); CREATININE 2.59 MG/DL (0.60-1.30); GLOMERULAR FILTRATION RATE 31 ML/MIN (>89); GLUCOSE,RANDOM 90 MG/DL (74-106); SODIUM (NA) 138 MEQ/L (136-145)
[2017-07-26 07:55] LABS: ALKALINE PHOSPHATASE 83 U/L (45-117); ALT (GPT) 61 U/L (12-78); TOTAL BILIRUBIN ADULT 0.4 MG/DL (0.2-1.0); TOTAL PROTEIN 9.3 GM/DL (6.4-8.2)
[2017-07-26 08:14] VITALS: BP 147/74; PULSE 84; RESP 20; TEMP 97.8; O2SAT 97
[2017-07-26] MEDS: LINEZOLID 600 MG TAB PO SCH ×2 (08:31→20:59)
[2017-07-26] MEDS: METOPROLOL TARTRATE 50 MG TAB PO SCH ×2 (08:31→20:59)
[2017-07-26] MEDS: POTASSIUM CHLORIDE 10 MEQ CONTROLLED RELEASE TAB PO SCH ×2 (08:31→20:59)
--- NOTE | 2017-07-26 08:44 | HHI.PR ---
Subjective Remarks alert weak Objective Vital Signs Date Time Temp Pulse Resp B/P (MAP) Pulse Ox O2 Delivery O2 Flow Rate FiO2 07/26/17 08:14 97.8 84 20 147/74 (98) 97 07/26/17 04:20 97.1 89 20 144/89 (107) 99 07/26/17 00:00 98.7 94 18 146/80 (102) 99 07/25/17 20:30 98.1 80 19 145/64 (91) 99 07/25/17 16:28 97.9 89 20 141/62 (88) 95 07/25/17 11:55 97.6 85 20 124/66 (85) 97 I/O 07/25/17 07/25/17 07/25/17 07/26/17 07/26/17 07/26/17 07:00 15:00 23:00 07:00 15:00 23:00 Intake Total 200 ml 1475 ml 1200 ml Output Total 1800 ml 1500 ml 700 ml Balance -1600 ml -25 ml 500 ml Intake Oral 1475 ml 200 ml IV Total 200 ml 1000 ml Output Urine Total 1800 ml 1500 ml 700 ml # Bowel Movements 0 3 0 Result Diagram: 07/26/17 0650 07/26/17 0650 Objective Remarks GENERAL: SKIN: Warm and dry. HEAD: Atraumatic. Normocephalic. EYES: Pupils equal and round. No scleral icterus. No injection or drainage. ENT: No nasal bleeding or discharge. Mucous membranes pink and moist. NECK: Trachea midline. No JVD. CARDIOVASCULAR: Regular rate and rhythm. RESPIRATORY: No accessory muscle use. Clear to auscultation. Breath sounds equal bilaterally. GASTROINTESTINAL: Abdomen soft, non-tender, nondistended. Hepatic and splenic margins not palpable. MUSCULOSKELETAL: Extremities without clubbing, cyanosis, or edema. No obvious deformities. NEUROLOGICAL: Awake and alert. No obvious cranial nerve deficits. Motor grossly within normal limits. Five out of 5 muscle strength in the arms and legs. Normal speech. PSYCHIATRIC: Appropriate mood and affect; insight and judgment normal. Assessment and Plan Assessment and Plan left lung abscess endocarditis embolic stroke plan o2 antibx increase activity Drew Russell MD Jul 26, 2017 08:44
[2017-07-26] MEDS: SODIUM CHLORIDE 0.9% FLUSH 10 ML FLUSH IV FLUSH SCH ×2 (09:00→20:58)
--- NOTE | 2017-07-26 09:22 | HHI.FPPN ---
Subjective Remarks Patient seen and examined bedside this morning. Patient states his left shoulder pain has continued to improve every day. He states that his diarrhea has improved as well and he is now having normal bowel movements. Patient denies any chest pain or shortness of breath or dizziness. He did not have any acute events overnight. Denies any fever/chills. (Evangelina Jones MD R2) Objective Vitals Vital Signs Date Time Temp Pulse Resp B/P (MAP) Pulse Ox O2 Delivery O2 Flow Rate FiO2 07/26/17 08:14 97.8 84 20 147/74 (98) 97 07/26/17 04:20 97.1 89 20 144/89 (107) 99 07/26/17 00:00 98.7 94 18 146/80 (102) 99 07/25/17 20:30 98.1 80 19 145/64 (91) 99 07/25/17 16:28 97.9 89 20 141/62 (88) 95 07/25/17 11:55 97.6 85 20 124/66 (85) 97 I/O 07/25/17 07/25/17 07/25/17 07/26/17 07/26/17 07/26/17 07:00 15:00 23:00 07:00 15:00 23:00 Intake Total 200 ml 1475 ml 1200 ml Output Total 1800 ml 1500 ml 700 ml Balance -1600 ml -25 ml 500 ml Intake Oral 1475 ml 200 ml IV Total 200 ml 1000 ml Output Urine Total 1800 ml 1500 ml 700 ml # Bowel Movements 0 3 0 (Evangelina Jones MD R2) Result Diagram: 07/26/17 0650 07/26/17 0650 Objective Remarks GENERAL: Patient awake laying in bed comfortably in no acute distress. SKIN: . Cool and dry. HEAD: Atraumatic. Normocephalic. EYES: Extraocular motions intact. No scleral icterus. No injection or drainage. ENT: Nose without bleeding, purulent drainage or septal hematoma. Airway patent. NECK: Trachea midline. No JVD or lymphadenopathy. Supple, nontender, no meningeal signs. CARDIOVASCULAR: Regular rate and rhythm without murmurs, gallops, or rubs. RESPIRATORY: Good air movement BL. No wheezes or crackles appreciated GASTROINTESTINAL: Abdomen soft, non-tender, non-distended. Supra pubic catheter in place MUSCULOSKELETAL: Extremities without clubbing, cyanosis, or edema. + Tenderness over left pectoralis muscle and right shoulder (decreased from prior exams). Limitation of left shoulder motion due to pain. Strain on the posterior aspect of the left shoulder in place with clean dry and intact bandage overlying it. No joint tenderness, effusion, or edema noted. No calf tenderness. Negative Homans sign bilaterally. Normal sensation. NEUROLOGICAL: Cranial nerves II through XII grossly intact. Somewhat slurred speech/difficult to understand but unchanged from previous exams. (Evangelina Jones MD R2) A/P Assessment and Plan Patient is 57-year-old M with PMHx BPH and s/p prostatectomy (on 05/2017) presented to the ED with 2 wks of progressive worsening left side pain and weakness associated with GAINES. Urologist Dr. Patel, completed the surgery. Pt found to have Left apical lung mass with supraclavicular extension on imaging and focal embolic in in brain MRI. Pt is currently being treated for MRSA bacteremia. ALEX results positive for small mitral valve vegetation, likely resulting in the septic emboli to the brain. Pt had IR Aspiration of apical lung mass on 07/24 Seen and discussed with Dr. Chiu Discharge Planning time frame unclear (Evangelina Jones MD R2) Attending Attestation Patient seen and examined, discussed with Dr. Jones. I agree with assessment and management as documented and discussed with me. (Marilyn Chiu MD) Problem List: (1) Bacteremia due to Gram-positive bacteria ICD Codes: R78.81 - Bacteremia Plan: Blood cultures on admission (07/16): Positive for MRSA. Repeat cultures on 07/19 continued to grow MRSA Repeat cultures 07/21: NG 4 days Repeat cultures 07/23: NG x 2 days Urine Cx 07/16: Negative Repeat Ucx 07/23: Negative History of rectal temp of 102.5, and ESR of 140 on admission and CRP 37 now afebrile 5.9 cm abscess with suspected pneumonia surrounding IR aspiration cultures from 07/23 growing MRSA -Infectious disease consulted and Pulm Consulted, appreciate recommendations; Received vancomycin from 07/16 - 07/21 Switched to daptomycin on 07/22 by ID Received Zosyn from 07/16-07/20 Started Linezolid on 07/25 by ID high-grade with embolic brain lesions, likely underlying endocarditis in view of ALEX Embolic stroke with left-sided hemiplegia -Echo negative for endocarditis ALEX results: Mitral valve was structurally normal, but there was evidence of a small mobile mitral valve vegetation. Borderline normal left ventricular systolic function. Trace regurgitation of mitral and tricuspid valve. Trace pulmonary insufficiency (2) Endocarditis ICD Codes: I38 - Endocarditis, valve unspecified Plan: see plan above for bacteremia (3) OLLIE (acute kidney injury) ICD Codes: N17.9 - Acute kidney failure, unspecified Plan: Elevated creatinine appreciated on 07/21, now stable (creatinine 0.97 - > 1.92 --> 2.69 --> 2.71 --> 2.43 -->2.48 --> 2.59) BUN WNL No known history of CKD, hx of BPH and prostatectomy in May 2017, suprapubic catheter placement with inability to void and subsequently capped and urethral catheter placed ATN via medication (IV Vanc) or sepsis vs. Post-obstructive uropathy vs. AIN -renal u/s: kidneys echogenic, medical renal disease likely -Nephrology consultation, appreciate recommendations -- f/u urine eosinophils IV fluids at 100 mL/hr (4) Lung mass ICD Codes: R91.8 - Other nonspecific abnormal finding of lung field Status: Acute Plan: Likely abscess related to MRSA bacteremia, less likely neoplasm -Pulm and ID consulted, recommendation appreciated - IR abscess culture and continue drainage on 07/23 07/23: Cultures growing MRSA - sensitive to Daptomycin, Linezolid -Drain in place with minimal output over the last 24 hours -f/u CT chest today 07/26. If no fluid accumulation persist, can plan to suction/ clamp drain and plan for removal Chest CT 07/16/17: Complex loculated 5.9 cm fluid attenuation area at the left lung apex most characteristic of an abscess stanchion into the extrathoracic soft tissues superiorly and extending supraclavicular with locules of air present in the supraclavicular region and within the chest lesion. There is a suspected surrounding pneumonia upper left lung. Cannot exclude necrotic neoplasm. This would be amenable to CT guided aspiration. Mildly enlarged mediastinal and left hilar lymph nodes. Trace left pleural effusion. CRX 07/16: 5cm masslike opacity at the left apex -CXR (07/19): Stable from previous imaging CXR (07/21): Persistent complete opacification of left upper lobe and progressive volume loss with increased parenchymal density within the remainder of the left lower lobe CXR (07/23): No pneumothorax, decreasing density in the left apex (5) HTN (hypertension) ICD Codes: I10 - Essential (primary) hypertension Status: Chronic Plan: Elevated blood pressures up to 205/92 on 07/23, markedly increased from admission No reported history of hypertension, normotensive at time of admission BPs have improved in last 24hrs Continue metoprolol tartrate 50 mg twice a day Continue amlodipine to 10 mg daily per nephrology recommendations Continue hydralazine as needed for systolic blood pressures >180, diastolic blood pressures >100 (6) Focal infarction of brain ICD Codes: I63.9 - Cerebral infarction, unspecified Plan: Brain MRI with findings consistent with small focal infarcts, likely embolic in the right occipital lobe and right parietal high convexities near the vertex. Based on patient history, likely have been present for 2 weeks+ -Head CT within normal limits -Neck MRA normal -PT and OT consulted -Continue statin -Monitor vitals, keep BP controlled (7) Left-sided weakness ICD Codes: R53.1 - Weakness Status: Acute Plan: L sided weakness/severe pain, worse at L shoulder Septic arthritis versus mass effect -neuro checks Q4h -Out of bed with assistance -PT to evaluate, recommendations: Continue physical therapy at rehabilitation and OT therapy. -Will submit OT referral for evaluation Imaging: -MRI lumbar spine: no osteomyelitis, spinal canal stenosis at L3-L5, no significant change from prior study -MRI thoracic spine: multilevel disc spurs at T3-4 and T5-T6 and T9-10, no cord compression, no significant change from prior study -MRI brain: Small focal infarcts likely embolic in the right occipital lobe and right parietal high convexities near the vertex. - Head MRA normal - Echo: EF of 50%. Trace tricuspid valve regurgitation. Otherwise normal echo. - ALEX: small mitral valve vegetation (8) Nutrition, metabolism, and development symptoms ICD Codes: R63.8 - Other symptoms and signs concerning food and fluid intake Plan: Fluids: 100 mls/hr with K Electrolytes: WNL, replete as needed. Nutrition: regular diet DVT ppx: lovenox (Evangelina Jones MD R2) Problem Qualifiers (1) HTN (hypertension): Qualified Codes: I10 - Essential (primary) hypertension Evangelina Jones MD R2 Jul 26, 2017 09:22 Marilyn Chiu MD Jul 26, 2017 14:46
--- NOTE | 2017-07-26 09:41 | RADRPT ---
EXAM DATE/TIME: 07/26/2017 09:11 [facility] COMPARISON: CT THORAX W CONTRAST, July 16, 2017, 12:46. CHEST EXPIRATION ONLY, July 24, 2017, 8:40. INDICATIONS : Followup abscess in left lung apex. RADIATION DOSE: 14.62 CTDIvol (mGy) MEDICAL HISTORY : Cardiovascular disease. Hypertension. SURGICAL HISTORY : Prostatectomy. ENCOUNTER: Initial ACUITY: 1 day PAIN SCALE: 0/10 LOCATION: chest TECHNIQUE: Volumetric scanning of the chest was performed. Using automated exposure control and adjustment of t he mA and/or kV according to patient size, radiation dose was kept as low as reasonably achievable to obtain optimal diagnostic quality images. DICOM format image data is available electronically for r eview and comparison. Follow-up recommendations for detected pulmonary nodules are based at a minimum on nodule size and pa tient risk factors according to Fleischner Society Guidelines. FINDINGS: LUNGS: There has been interval placement of a percutaneous drainage catheter into the abscess in the left ian ng apex. The fluid component is no longer visualized in the abscess is smaller in appearance. There i s decreased soft tissue density there is patchy infiltrate remaining in the left upper lobe. The righ t lung is clear. There are no new masses or areas of consolidation. PLEURAE: There is no pleural thickening or pleural effusion. MEDIASTINUM: The heart and great vessels demonstrate no acute abnormality. There is no mediastinal or hilar lymph adenopathy. AXILLAE: Within normal limits. No lymphadenopathy. MUSCULOSKELETAL: Within normal limits for patient age. MISCELLANEOUS: The visualized upper abdominal organs demonstrate no acute abnormality. CONCLUSION: Interval placement of percutaneous drainage catheter. The abscess is smaller and there is no residual fluid or air now noted. Residual infiltrate remains in the left upper lobe. Akash Calvert MD on July 26, 2017 at 9:30 Board Certified Radiologist. This report was verified electronically.
--- NOTE | 2017-07-26 09:56 | HHI.NPPN ---
Subjective Renal Failure: Acute History of Present Illness Patient is 57-year-old with PMHx BPH and s/p prostatectomy (on 05/2017) presented to the ED with 2 wks of progressive worsening left side pain and weakness associated with GAINES. Pt follows with urologist Dr. Patel, who completed the surgery. Per records patient had suprapubic catheter placed in May. After prostatectomy pt was unable to void and received 2nd (07/01/2017 ) surgery for placement of urethral catheter. At that time supra pubic catheter was capped. Over the last couple of days there is a significant rise in creatinine at 2.71 today from 0.97 on admission. Has indwelling urinary catheter that is draining urine. Being treated for MRSA sepsis, high grade with embolic brain lesions, with confirmed mitral valve endocarditis persistently positive blood clx. Vancomycin discontinued and on daptomycin. Additional Remarks OOB in chair. Oriented to self. Patient denies any SOB. CT left chest wall (Samantha Urbano) Review of Systems Respiratory Respiratory Remarks Denies SOB (Samantha Urbano) Cardiovascular Cardiac Remarks Denies CP (Samantha Urbano) Gastrointestinal GI Remarks denies any Abdominal pain (Samantha Urbano) Genitourinary Remarks Denies dysuria (Samantha Urbano) Objective Data Data Vital Signs Date Time Temp Pulse Resp B/P (MAP) Pulse Ox O2 Delivery O2 Flow Rate FiO2 07/26/17 08:14 97.8 84 20 147/74 (98) 97 07/26/17 04:20 97.1 89 20 144/89 (107) 99 07/26/17 00:00 98.7 94 18 146/80 (102) 99 07/25/17 20:30 98.1 80 19 145/64 (91) 99 07/25/17 16:28 97.9 89 20 141/62 (88) 95 07/25/17 11:55 97.6 85 20 124/66 (85) 97 (Samantha Urbano) -: 07/26/17 0650 07/26/17 0650 Physical Exam General Appearance: Obese (Samantha Urbano) Eyes Eye Exam: Pupils Equal (Samantha Urbano) Throat Throat Exam: Oral Mucosa [place] & Moist (Samantha Urbano) Pulmonary Resp Exam: Breath Sounds Equal, No Distress, Decreased Bases (Samantha Urbano) Cardiology CV Exam: Regular, Normal Sinus Rhythm (Samantha Urbano) Gastrointestinal/Abdomen GI Exam: Soft, Bowel Sounds Present (Samantha Urbano) Genitourinary Exam: Flank Non-Tender (Samantha Urbano) Integumentary Skin Exam: Clear, Warm (Samantha Urbano) Extremeties Extremities Exam: Trace Edema (Samantha Urbano) Neurologic Neuro Exam: Alert, Awake (Samantha Urbano) Psychiatric Psych Exam: Appropriate Responses (Samantha Urbano) Assessment/Plan Problem List: (1) OLLIE (acute kidney injury) ICD Codes: N17.9 - Acute kidney failure, unspecified Plan: OLLIE with possibly ATN from sepsis, complicated UTI not confirmed and endocarditis. Other possibility is Vanco. toxicity and also to rule out Acute Interstitial Nephritis. No previous history of Kidney disease. Suprapubic cath capped. Indwelling catheter Renal US: Kidneys are echogenic which can be seen with medical renal disease, Echogenic lesion right mid kidney likely represents angiomyolipoma versus less likely calculus and Bilateral renal cysts. Creatinine slightly increased at 2.59 Plan Continue IVF;s Monitor I+O Avoid nephrotoxins. Continue to monitor renal function Urine for Eosinophils still pending. On Daptomycin and Zyvox (2) HTN (hypertension) ICD Codes: I10 - Essential (primary) hypertension Status: Chronic Plan: Continue Amlodipine and metoprolol (Samantha Urbano) Problem List: (1) OLLIE (acute kidney injury) ICD Codes: N17.9 - Acute kidney failure, unspecified Plan: OLLIE with possibly ATN from sepsis, complicated UTI not confirmed and endocarditis. Other possibility is Vanco. toxicity and also to rule out Acute Interstitial Nephritis. No previous history of Kidney disease. Suprapubic cath capped. Indwelling catheter Renal US: Kidneys are echogenic which can be seen with medical renal disease, Echogenic lesion right mid kidney likely represents angiomyolipoma versus less likely calculus and Bilateral renal cysts. Creatinine slightly increased at 2.59 Plan Continue IVF;s Monitor I+O Avoid nephrotoxins. Continue to monitor renal function Urine for Eosinophils still pending. On Daptomycin and Zyvox. Patient seen and examined, agree with above. Creatinine is almost same, non oliguric. (2) HTN (hypertension) ICD Codes: I10 - Essential (primary) hypertension Status: Chronic Plan: Continue Amlodipine and metoprolol (Dewey Marte MD) Problem Qualifiers (1) HTN (hypertension): Qualified Codes: I10 - Essential (primary) hypertension Samantha Urbano Jul 26, 2017 09:56 Dewey Marte MD Jul 26, 2017 15:51
--- NOTE | 2017-07-26 11:11 | HHI.IDPN ---
Subjective Subjective Remarks ID COVERAGE Chart reviewed 57 year old diagnosed to have MRSA bacteremia and has MV IE Has loculated fluid collection in L apex, with some extension Notes reviewed D/W RN He is afebrile No new complaint Repeat CT chest shows decrease in fluid in L apex, with improving infiltrate; R lung clear Good UO, but creatinine slightly higher today Renal US, no obstruction UA noted Urine eos pending Fluid C/S also with MRSA Last (+) BC 07/19 Not SOB Weak Has bryan, good UO Antibiotics Current Medications Cubicin Zyvox Medications (Trade) Dose Ordered Sig/Briseyda Route Start Time Stop Time Status Last Admin (NS Flush) 2 ml UNSCH PRN IV FLUSH 07/16/17 09:45 (NS Flush) 2 ml BID IV FLUSH 07/16/17 21:00 07/23/17 23:16 (Zofran Inj) 4 mg Q6H PRN IVP 07/16/17 09:45 (Lovenox Inj) 40 mg Q24H SQ 07/16/17 11:00 Future hold 07/25/17 11:43 (Milk Of Magnesia Liq) 30 ml Q12H PRN PO 07/16/17 09:45 (Senokot) 17.2 mg Q12H PRN PO 07/16/17 09:45 (Dulcolax Supp) 10 mg DAILY PRN RECTAL 07/16/17 09:45 (Lactulose Liq) 30 ml DAILY PRN PO 07/16/17 09:45 (Narcan Inj) 0.4 mg UNSCH PRN IV PUSH 07/16/17 19:00 (Lipitor) 40 mg HS PO 07/17/17 21:00 07/25/17 21:13 (Concord 5-325 Mg) 1 tab Q6H PRN PO 07/17/17 16:30 07/25/17 00:50 (KCl) 40 meq Q12HR PO 07/20/17 12:15 07/26/17 08:31 (Apresoline) 10 mg Q6HR PRN PO 07/21/17 13:00 07/25/17 00:49 Daptomycin 750 mg/ Sodium Chloride 100 ml @ 200 mls/hr Q48H IV 07/24/17 17:00 07/24/17 17:40 (Lopressor) 50 mg Q12HR PO 07/23/17 09:00 07/26/17 08:31 (Norvasc) 10 mg DAILY PO 07/26/17 09:00 07/26/17 08:31 (Zyvox) 600 mg Q12HR PO 07/25/17 12:00 07/26/17 08:31 Sodium Chloride 1,000 ml @ 100 mls/hr Q10H IV 07/25/17 14:32 07/26/17 06:09 Lines PIV Past Medical History BPH neuropathy Past Surgical History cervical spine fusion-- after a fall in 2002 lower spinal fusion 2 yrs ago prostatectomy, May 2017 Allergies: Coded Allergies: No Known Allergies (Verified Allergy, Unknown, 07/16/17) Objective . Vital Signs Date Time Temp Pulse Resp B/P (MAP) Pulse Ox O2 Delivery O2 Flow Rate FiO2 07/26/17 08:14 97.8 84 20 147/74 (98) 97 07/26/17 04:20 97.1 89 20 144/89 (107) 99 07/26/17 00:00 98.7 94 18 146/80 (102) 99 07/25/17 20:30 98.1 80 19 145/64 (91) 99 07/25/17 16:28 97.9 89 20 141/62 (88) 95 07/25/17 11:55 97.6 85 20 124/66 (85) 97 . Laboratory Tests Test 07/25/17 06:20 07/26/17 06:50 White Blood Count 12.7 TH/MM3 13.5 TH/MM3 Red Blood Count 3.85 MIL/MM3 3.81 MIL/MM3 Hemoglobin 8.5 GM/DL 8.3 GM/DL Hematocrit 26.2 % 25.8 % Mean Corpuscular Volume 68.1 FL 67.7 FL Mean Corpuscular Hemoglobin 22.1 PG 21.7 PG Mean Corpuscular Hemoglobin Concent 32.5 % 32.1 % Red Cell Distribution Width 24.6 % 23.9 % Platelet Count 459 TH/MM3 471 TH/MM3 Mean Platelet Volume 7.1 FL 7.2 FL Neutrophils (%) (Auto) 67.2 % 65.9 % Lymphocytes (%) (Auto) 22.1 % 23.6 % Monocytes (%) (Auto) 7.7 % 6.7 % Eosinophils (%) (Auto) 2.2 % 2.2 % Basophils (%) (Auto) 0.8 % 1.6 % Neutrophils # (Auto) 8.5 TH/MM3 8.9 TH/MM3 Lymphocytes # (Auto) 2.8 TH/MM3 3.2 TH/MM3 Monocytes # (Auto) 1.0 TH/MM3 0.9 TH/MM3 Eosinophils # (Auto) 0.3 TH/MM3 0.3 TH/MM3 Basophils # (Auto) 0.1 TH/MM3 0.2 TH/MM3 CBC Comment DIFF FINAL DIFF FINAL Differential Comment Laboratory Tests Test 07/25/17 06:20 07/26/17 06:50 Blood Urea Nitrogen 19 MG/DL 28 MG/DL Creatinine 2.48 MG/DL 2.59 MG/DL Random Glucose 81 MG/DL 90 MG/DL Calcium Level 9.1 MG/DL 9.0 MG/DL Sodium Level 139 MEQ/L 138 MEQ/L Potassium Level 4.2 MEQ/L 4.3 MEQ/L Chloride Level 106 MEQ/L 108 MEQ/L Carbon Dioxide Level 26.5 MEQ/L 20.8 MEQ/L Anion Gap 7 MEQ/L 9 MEQ/L Estimat Glomerular Filtration Rate 32 ML/MIN 31 ML/MIN Total Protein 9.3 GM/DL Albumin 2.1 GM/DL Alkaline Phosphatase 83 U/L Aspartate Amino Transf (AST/SGOT) 75 U/L Alanine Aminotransferase (ALT/SGPT) 61 U/L Total Bilirubin 0.4 MG/DL Microbiology Date/Time Source Procedure Growth Status 07/23/17 13:49 Blood Peripheral Aerobic Blood Culture - Preliminary NO GROWTH IN 3 DAYS Resulted 07/23/17 13:49 Blood Peripheral Anaerobic Blood Culture - Preliminary NO GROWTH IN 3 DAYS Resulted 07/23/17 17:20 Fluid Pleural Fluid Gram Stain - Final Complete 07/23/17 17:20 Body Fluid Culture - Final S. Aureus Mrsa Complete Imaging RADIOLOGY STUDIES/FILMS REVIEWED Chest X-Ray 07/21/17 0600 Signed Impressions: Service Date/Time: Friday, July 21, 2017 10:28 - CONCLUSION: Over wall worsening lung exam with persistent complete opacification of the left upper lobe and progressive volume loss with increased parenchymal density within the remainder of the left lower lobe. Lida Eric MD Shoulder X-Ray 07/20/17 0000 Signed Impressions: Service Date/Time: Thursday, July 20, 2017 12:54 - CONCLUSION: No evidence of fracture. Cliff Lomeli MD Shoulder MRI 07/20/17 0000 Signed Impressions: Service Date/Time: Thursday, July 20, 2017 12:09 - CONCLUSION: 1. Abscess of the left lung apex again seen with anterior and posterior extension of abnormal enhancement and edema. There is extension of abscess anteriorly just inferior to the sternoclavicular joint. Elongated extension of abscess along the deep margin of the pectoralis muscle also noted. Extension of the edema and enhancement suggesting soft tissue infection in the region of the proximal coracobrachialis and biceps muscles. 2. No evidence of osteomyelitis. 3. Glenohumeral joint within normal limits. 4. Moderate acromioclavicular joint arthrosis. 5. Rotator cuff tendons are intact. Cliff Lomeli MD Abdomen X-Ray 07/19/17 0000 Signed Impressions: Service Date/Time: Wednesday, July 19, 2017 14:08 - CONCLUSION: Bowel distention as described above. There is no free air. Fredy Vega MD FACR Neck Magnetic Resonance Angiography 07/17/17 0000 Signed Impressions: Service Date/Time: Monday, July 17, 2017 09:00 - CONCLUSION: 1. Normal carotid arteries. Tahir Miramontes MD Head Magnetic Resonance Angiography 07/17/17 0000 Signed Impressions: Service Date/Time: Monday, July 17, 2017 09:00 - CONCLUSION: 1. No large vessel aneurysm or stenosis. 2. Normal variants as described above. Tahir Miramontes MD Thoracic Spine MRI 07/16/17 0000 Signed Impressions: Service Date/Time: Sunday, July 16, 2017 10:42 - CONCLUSION: 1. Multilevel disc spurs at T3-4, T5-T6 scan, most significantly at T9-10. Despite degenerative changes, there is no cord compromise at any thoracic level. No significant change from prior. 2. Possible loculated effusion in the left lung apex. Bonifacio Echeverria MD Lumbar Spine MRI 07/16/17 0000 Signed Impressions: Service Date/Time: Sunday, July 16, 2017 10:42 - CONCLUSION: 1. Stable CT scan of the lumbar spine compared to the prior examination of 07/29/2015. 2. No evidence to suggest discitis or osteomyelitis. 3. There continues to be spinal canal stenosis at L3-4 and L4-5 without significant change compared to the prior study. Fahad Garrido MD Head CT 07/16/17 0000 Signed Impressions: Service Date/Time: Sunday, July 16, 2017 07:04 - CONCLUSION: Unremarkable study. Sree Lind MD Chest CT 07/16/17 0000 Signed Impressions: Service Date/Time: Sunday, July 16, 2017 12:46 - CONCLUSION: 1. Complex loculated 5.9 cm fluid attenuation area at the left lung apex most characteristic of an abscess with extension into the extrathoracic soft tissues superiorly and extending supraclavicular with locules of air present in the supraclavicular region and within the chest lesion. There is a suspected surrounding pneumonia upper left lung. Cannot exclude necrotic neoplasm. This would be amenable to CT-guided aspiration. 2. Mildly enlarged mediastinal and left hilar lymph nodes. 3. Trace left pleural effusion. Ryan Byrnes MD Cervical Spine MRI 07/16/17 0000 Signed Impressions: Service Date/Time: Sunday, July 16, 2017 10:42 - CONCLUSION: 1. Stable overall appearance of the cervical spine compared to the prior examination of 07/28/2015. 2. Specifically, no evidence to suggest discitis or osteomyelitis. Fahad Garrido MD Brain MRI 07/16/17 0000 Signed Impressions: Service Date/Time: Sunday, July 16, 2017 10:42 - CONCLUSION: 1. 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 Vasquez Thayer MD Abdomen/Pelvis CT 07/16/17 0000 Signed Impressions: Service Date/Time: Sunday, July 16, 2017 12:49 - CONCLUSION: 1. Suprapubic catheter present presumably passing into bladder with thickened bladder wall. There is a Bryan catheter present with the balloon in the lower bladder or possibly within the prostatic region. Patient is reportedly status post prostatectomy. 2. Diffuse ileus. Stable renal cysts. 3. Mild inflammatory changes left lung base. Ryan Byrnes MD Physical Exam GENERAL: un in chair, slow to respond, not in distress SKIN: Cool, moist, not diaphoretic. No rash HEENT: Pale conjunctiva, no petechia or hemorrhage, full EOM, dry oral mucosa NECK: Supple and not tender CARDIOVASCULAR: Regular rate and rhythm, no murmurs, or rubs. RESPIRATORY/CHEST: Clear to auscultation. Breath sounds equal bilaterally. No wheezes, rales, or rhonchi. Has CT in L upper back, not a lot of output GASTROINTESTINAL: Abdomen soft, obese, non-tender, nondistended. No guarding. Bowel sounds present. GENITOURINARY: SP cath is capped. Bryan in place, with some sediment MUSCULOSKELETAL: Extremities without clubbing, cyanosis, + 1 edema. No joint tenderness or effusion noted. No calf tenderness. NEUROLOGICAL: Awakens easily, but slow. Follows commands. 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 PLAN Follow C/S Continue Cubicin - follow CPK Continue Zyvox Will not switch back in light of renal injury, still not sure etiology of acute rise in his creatinine Repeat BC are now negative, his last (+) BC maybe due to undrained empyema/ abscess, which now has percutaneous drainage cath Follow creatinine - renal following Monitor progress D/W Nydia Temple MD Jul 26, 2017 11:11
[2017-07-26 12:26] VITALS: BP 135/81; PULSE 87; RESP 18; TEMP 97.4; O2SAT 98
[2017-07-26] MEDS: ENOXAPARIN SODIUM 40 MG/0.4 ML SYRINGE SQ SCH (12:48)
--- NOTE | 2017-07-26 14:43 | HHI.PR ---
Subjective Remarks alert weak Objective Vital Signs Date Time Temp Pulse Resp B/P (MAP) Pulse Ox O2 Delivery O2 Flow Rate FiO2 07/26/17 12:26 97.4 87 18 135/81 (99) 98 07/26/17 08:14 97.8 84 20 147/74 (98) 97 07/26/17 04:20 97.1 89 20 144/89 (107) 99 07/26/17 00:00 98.7 94 18 146/80 (102) 99 07/25/17 20:30 98.1 80 19 145/64 (91) 99 07/25/17 16:28 97.9 89 20 141/62 (88) 95 I/O 07/25/17 07/25/17 07/25/17 07/26/17 07/26/17 07/26/17 07:00 15:00 23:00 07:00 15:00 23:00 Intake Total 200 ml 1475 ml 1200 ml Output Total 1800 ml 1500 ml 700 ml Balance -1600 ml -25 ml 500 ml Intake Oral 1475 ml 200 ml IV Total 200 ml 1000 ml Output Urine Total 1800 ml 1500 ml 700 ml # Bowel Movements 0 3 0 Result Diagram: 07/26/17 0650 07/26/17 0650 Objective Remarks GENERAL: SKIN: Warm and dry. HEAD: Atraumatic. Normocephalic. EYES: Pupils equal and round. No scleral icterus. No injection or drainage. ENT: No nasal bleeding or discharge. Mucous membranes pink and moist. NECK: Trachea midline. No JVD. CARDIOVASCULAR: Regular rate and rhythm. RESPIRATORY: No accessory muscle use. Clear to auscultation. Breath sounds equal bilaterally. GASTROINTESTINAL: Abdomen soft, non-tender, nondistended. Hepatic and splenic margins not palpable. MUSCULOSKELETAL: Extremities without clubbing, cyanosis, or edema. No obvious deformities. NEUROLOGICAL: Awake and alert. No obvious cranial nerve deficits. Motor grossly within normal limits. Five out of 5 muscle strength in the arms and legs. Normal speech. PSYCHIATRIC: Appropriate mood and affect; insight and judgment normal. Assessment and Plan Assessment and Plan left lung abscess endocarditis embolic stroke plan o2 antibx increase activity Drew Russell MD Jul 26, 2017 14:43
[2017-07-26 15:58] VITALS: BP 134/67; PULSE 79; RESP 18; TEMP 97.3; O2SAT 100
[2017-07-26] MEDS: DAPTOmycin INJ 750 MG in SODIUM CHLORIDE 0.9% INJ 100 ML IV SCH (16:54)
[2017-07-26 20:44] VITALS: BP 155/64; PULSE 77; RESP 18; TEMP 97.6; O2SAT 98
[2017-07-26] MEDS: ATORVASTATIN 40 MG TAB PO SCH (20:59)
[2017-07-27 00:59] VITALS: BP 143/91; PULSE 78; RESP 18; TEMP 97.2; O2SAT 100
[2017-07-27] MEDS: SODIUM CHLOR 0.9% 1000 ML INJ 1,000 ML IV SCH ×3 (04:04→21:43)
[2017-07-27 06:03] VITALS: BP 151/96; PULSE 67; RESP 19; TEMP 97.8; O2SAT 97
[2017-07-27 07:16] LABS: AUTOMATED NEUTROPHIL # 6.7 TH/MM3 (1.8-7.7); BASOPHIL # 0.1 TH/MM3 (0-0.2); EOSINOPHIL # 0.3 TH/MM3 (0-0.4); EOSINOPHIL % 2.7 % (0.0-4.0); HEMATOCRIT 24.6 % (39.0-51.0); HEMOGLOBIN 7.8 GM/DL (13.0-17.0); LYMPH % 22.9 % (9.0-44.0); LYMPHOCYTE # 2.3 TH/MM3 (1.0-4.8); MEAN CELL VOLUME 68.5 FL (80.0-100.0); MEAN CORPUSCULAR HEMOGLOBIN 21.8 PG (27.0-34.0); MEAN CORPUSCULAR HGB CONC 31.8 % (32.0-36.0); MEAN PLATELET VOLUME 7.2 FL (7.0-11.0); MONO % 6.4 % (0.0-8.0); MONOCYTE # 0.6 TH/MM3 (0-0.9); PLATELET COUNT 435 TH/MM3 (150-450); RED BLOOD COUNT 3.59 MIL/MM3 (4.50-5.90); RED CELL DISTRIBUTION WIDTH 23.5 % (11.6-17.2)
[2017-07-27 07:25] LABS: BICARBONATE 23.7 MEQ/L (21.0-32.0); CALCIUM 8.8 MG/DL (8.5-10.1); CREATININE 2.49 MG/DL (0.60-1.30)
[2017-07-27 08:00] VITALS: BP 151/76; PULSE 74; RESP 20; TEMP 97.4; O2SAT 99
[2017-07-27] MEDS: METOPROLOL TARTRATE 50 MG TAB PO SCH ×2 (09:39→21:19)
[2017-07-27] MEDS: POTASSIUM CHLORIDE 10 MEQ CONTROLLED RELEASE TAB PO SCH ×2 (09:39→21:18)
[2017-07-27] MEDS: LINEZOLID 600 MG TAB PO SCH ×2 (09:39→21:18)
[2017-07-27] MEDS: ENOXAPARIN SODIUM 40 MG/0.4 ML SYRINGE SQ SCH (09:39)
[2017-07-27] MEDS: SODIUM CHLORIDE 0.9% FLUSH 10 ML FLUSH IV FLUSH SCH ×2 (09:39→21:19)
[2017-07-27 11:59] VITALS: BP 113/56; PULSE 76; RESP 20; TEMP 98; O2SAT 100
--- NOTE | 2017-07-27 14:31 | HHI.FPPN ---
Subjective Remarks Patient seen on rounds morning. No acute events overnight, vitals remained stable. Blood pressures over the last 24 hours improved with high systolic blood pressures in the 150s. Patient is sitting in chair comfortably and states he is feeling much better. No chest pain, shortness of breath, nausea or vomiting. (Javy Hernandez MD R1) Objective Vitals Vital Signs Date Time Temp Pulse Resp B/P (MAP) Pulse Ox O2 Delivery O2 Flow Rate FiO2 07/27/17 11:59 98.0 76 20 113/56 (75) 100 07/27/17 08:00 97.4 74 20 151/76 (101) 99 07/27/17 06:03 97.8 67 19 151/96 (114) 97 07/27/17 00:59 97.2 78 18 143/91 (108) 100 07/26/17 20:44 97.6 77 18 155/64 (94) 98 07/26/17 15:58 97.3 79 18 134/67 (89) 100 I/O 07/26/17 07/26/17 07/26/17 07/27/17 07/27/17 07/27/17 07:00 15:00 23:00 07:00 15:00 23:00 Intake Total 1200 ml 390 ml 1000 ml Output Total 700 ml 650 ml 2000 ml Balance 500 ml -260 ml -1000 ml Intake Oral 200 ml 390 ml IV Total 1000 ml 1000 ml Output Urine Total 700 ml 650 ml 2000 ml # Bowel Movements 0 1 (Javy Hernandez MD R1) Result Diagram: 07/27/17 0542 07/27/17 0542 Objective Remarks GENERAL: Patient sitting upright in chair comfortably in no acute distress. SKIN: . Cool and dry. HEAD: Atraumatic. Normocephalic. EYES: Extraocular motions intact. No scleral icterus. No injection or drainage. ENT: Nose without bleeding, purulent drainage or septal hematoma. Airway patent. NECK: Trachea midline. No JVD or lymphadenopathy. Supple, nontender, no meningeal signs. CARDIOVASCULAR: Regular rate and rhythm without murmurs, gallops, or rubs. RESPIRATORY: Good air movement BL. No wheezes or crackles appreciated GASTROINTESTINAL: Abdomen soft, non-tender, non-distended. Supra pubic catheter in place MUSCULOSKELETAL: Extremities without clubbing, cyanosis, or edema. Bandage overlying prior drain site on the posterior aspect of the left shoulder is clean dry and intact with no visible drainage. No joint tenderness, effusion, or edema noted. No calf tenderness. NEUROLOGICAL: Cranial nerves II through XII grossly intact. Somewhat slurred speech/difficult to understand but unchanged from previous exams. (Javy Hernandez MD R1) A/P Assessment and Plan Patient is 57-year-old M with PMHx BPH and s/p prostatectomy (on 05/2017) presented to the ED with 2 wks of progressive worsening left side pain and weakness associated with GAINES. Urologist Dr. Patel, completed the surgery. Pt found to have Left apical lung mass with supraclavicular extension on imaging and focal embolic in in brain MRI. Pt is currently being treated for MRSA bacteremia. ALEX results positive for small mitral valve vegetation, likely resulting in the septic emboli to the brain. Pt had IR Aspiration of apical lung mass on 07/24 with cultures growing MRSA. Seen and discussed with Dr. Chiu Discharge Planning time frame unclear (Javy Hernandez MD R1) Attending Attestation Patient seen, examined, and discussed with Dr. Hernandez. I agree with assessment and management as documented and discussed with me. Sister at bedside. All questions answered to the best of our abilities. Pt is clinically improving. (Marilyn Chiu MD) Problem List: (1) Bacteremia due to Gram-positive bacteria ICD Codes: R78.81 - Bacteremia Plan: Blood cultures on admission (07/16): Positive for MRSA. Repeat cultures on 07/19 continued to grow MRSA Repeat cultures 07/21: NG 6 days Repeat cultures 07/23: NG x 4 days Urine Cx 07/16: Negative Repeat Ucx 07/23: Negative History of rectal temp of 102.5, and ESR of 140 on admission and CRP 37 now afebrile 5.9 cm abscess with suspected pneumonia surrounding IR aspiration cultures from 07/23 growing MRSA -Infectious disease consulted and Pulm Consulted, appreciate recommendations; Received vancomycin from 07/16 - 07/21 Switched to daptomycin on 07/22 by ID Received Zosyn from 07/16-07/20 Started Linezolid on 07/25 by ID high-grade with embolic brain lesions, likely underlying endocarditis in view of ALEX Embolic stroke with left-sided hemiplegia -Echo negative for endocarditis ALEX results: Mitral valve was structurally normal, but there was evidence of a small mobile mitral valve vegetation. Borderline normal left ventricular systolic function. Trace regurgitation of mitral and tricuspid valve. Trace pulmonary insufficiency (2) Endocarditis ICD Codes: I38 - Endocarditis, valve unspecified Plan: see plan above for bacteremia (3) OLLIE (acute kidney injury) ICD Codes: N17.9 - Acute kidney failure, unspecified Plan: Elevated creatinine appreciated on 07/21, now stable (creatinine 0.97 - > 1.92 --> 2.69 --> 2.71 --> 2.43 -->2.48 --> 2.59 -->2.49) BUN WNL No known history of CKD, hx of BPH and prostatectomy in May 2017, suprapubic catheter placement with inability to void and subsequently capped and urethral catheter placed ATN via medication (IV Vanc) or sepsis vs. Post-obstructive uropathy vs. AIN -renal u/s: kidneys echogenic, medical renal disease likely -Nephrology consultation, appreciate recommendations -Elevated urine eosinophils at 0-2 IV fluids at 100 mL/hr (4) Lung mass ICD Codes: R91.8 - Other nonspecific abnormal finding of lung field Status: Acute Plan: Likely abscess related to MRSA bacteremia, less likely neoplasm -Pulm and ID consulted, recommendation appreciated - IR abscess culture and continue drainage on 07/23 07/23: Cultures growing MRSA - sensitive to Daptomycin, Linezolid -CT chest 07/26 showed smaller abscess, no residual fluid or air noted - drain removed on 07/[address] 07/16/17: Complex loculated 5.9 cm fluid attenuation area at the left lung apex most characteristic of an abscess stanchion into the extrathoracic soft tissues superiorly and extending supraclavicular with locules of air present in the supraclavicular region and within the chest lesion. There is a suspected surrounding pneumonia upper left lung. Cannot exclude necrotic neoplasm. This would be amenable to CT guided aspiration. Mildly enlarged mediastinal and left hilar lymph nodes. Trace left pleural effusion. CRX 07/16: 5cm masslike opacity at the left apex -CXR (07/19): Stable from previous imaging CXR (07/21): Persistent complete opacification of left upper lobe and progressive volume loss with increased parenchymal density within the remainder of the left lower lobe CXR (07/23): No pneumothorax, decreasing density in the left apex (5) HTN (hypertension) ICD Codes: I10 - Essential (primary) hypertension Status: Chronic Plan: Elevated blood pressures up to 205/92 on 07/23, markedly increased from admission No reported history of hypertension, normotensive at time of admission BPs have improved in last 24hrs with high systolic blood pressure of 155 Continue metoprolol tartrate 50 mg twice a day Continue amlodipine to 10 mg daily per nephrology recommendations Continue hydralazine as needed for systolic blood pressures >180, diastolic blood pressures >100 (6) Focal infarction of brain ICD Codes: I63.9 - Cerebral infarction, unspecified Plan: Brain MRI with findings consistent with small focal infarcts, likely embolic in the right occipital lobe and right parietal high convexities near the vertex. Based on patient history, likely have been present for 2 weeks+ -Head CT within normal limits -Neck MRA normal -PT and OT consulted -Continue statin -Monitor vitals, keep BP controlled (7) Left-sided weakness ICD Codes: R53.1 - Weakness Status: Acute Plan: L sided weakness/severe pain, worse at L shoulder Septic arthritis versus mass effect -neuro checks Q4h -Out of bed with assistance -PT to evaluate, recommendations: Continue physical therapy at rehabilitation and OT therapy. -Will submit OT referral for evaluation Imaging: -MRI lumbar spine: no osteomyelitis, spinal canal stenosis at L3-L5, no significant change from prior study -MRI thoracic spine: multilevel disc spurs at T3-4 and T5-T6 and T9-10, no cord compression, no significant change from prior study -MRI brain: Small focal infarcts likely embolic in the right occipital lobe and right parietal high convexities near the vertex. - Head MRA normal - Echo: EF of 50%. Trace tricuspid valve regurgitation. Otherwise normal echo. - ALEX: small mitral valve vegetation (8) Nutrition, metabolism, and development symptoms ICD Codes: R63.8 - Other symptoms and signs concerning food and fluid intake Plan: Fluids: 100 mls/hr with K Electrolytes: WNL, replete as needed. Nutrition: regular diet DVT ppx: lovenox (Javy Hernandez MD R1) Problem Qualifiers (1) HTN (hypertension): Qualified Codes: I10 - Essential (primary) hypertension Javy Hernandez MD R1 Jul 27, 2017 14:31 Marilyn Chiu MD Jul 27, 2017 15:23
--- NOTE | 2017-07-27 15:01 | HHI.NPPN ---
Subjective Renal Failure: Acute History of Present Illness Patient is 57-year-old with PMHx BPH and s/p prostatectomy (on 05/2017) presented to the ED with 2 wks of progressive worsening left side pain and weakness associated with GAINES. Pt follows with urologist Dr. Patel, who completed the surgery. Per records patient had suprapubic catheter placed in May. After prostatectomy pt was unable to void and received 2nd (07/01/2017 ) surgery for placement of urethral catheter. At that time supra pubic catheter was capped. Over the last couple of days there is a significant rise in creatinine at 2.71 today from 0.97 on admission. Has indwelling urinary catheter that is draining urine. Being treated for MRSA sepsis, high grade with embolic brain lesions, with confirmed mitral valve endocarditis persistently positive blood clx. Vancomycin discontinued and on daptomycin. Additional Remarks OOB in chair. Oriented to self. Patient denies any SOB. CT left chest wall Review of Systems Respiratory Respiratory Remarks Denies SOB Cardiovascular Cardiac Remarks Denies CP Gastrointestinal GI Remarks denies any Abdominal pain Genitourinary Remarks Denies dysuria Objective Data Data 07/27/17 07/28/17 19:00 07:00 Output Total 400 ml Balance -400 ml Output Urine Total 400 ml Vital Signs Date Time Temp Pulse Resp B/P (MAP) Pulse Ox O2 Delivery O2 Flow Rate FiO2 07/27/17 11:59 98.0 76 20 113/56 (75) 100 07/27/17 08:00 97.4 74 20 151/76 (101) 99 07/27/17 06:03 97.8 67 19 151/96 (114) 97 07/27/17 00:59 97.2 78 18 143/91 (108) 100 07/26/17 20:44 97.6 77 18 155/64 (94) 98 07/26/17 15:58 97.3 79 18 134/67 (89) 100 -: 07/27/17 0542 07/27/17 0542 Physical Exam General Appearance: Obese Eyes Eye Exam: Pupils Equal Throat Throat Exam: Oral Mucosa [place] & Moist Pulmonary Resp Exam: Breath Sounds Equal, No Distress, Decreased Bases Cardiology CV Exam: Regular, Normal Sinus Rhythm Gastrointestinal/Abdomen GI Exam: Soft, Bowel Sounds Present Genitourinary Exam: Flank Non-Tender Integumentary Skin Exam: Clear, Warm Extremeties Extremities Exam: Trace Edema Neurologic Neuro Exam: Alert, Awake Psychiatric Psych Exam: Appropriate Responses Assessment/Plan Problem List: (1) OLLIE (acute kidney injury) ICD Codes: N17.9 - Acute kidney failure, unspecified Plan: OLLIE with possibly ATN from sepsis, complicated UTI not confirmed and endocarditis. Other possibility is Vanco. toxicity and also to rule out Acute Interstitial Nephritis. No previous history of Kidney disease. Suprapubic cath capped. Indwelling catheter Renal US: Kidneys are echogenic which can be seen with medical renal disease, Echogenic lesion right mid kidney likely represents angiomyolipoma versus less likely calculus and Bilateral renal cysts. Creatinine slightly decreased at 2.49 Plan Continue IVF;s Monitor I+O Avoid nephrotoxins. Continue to monitor renal function Urine for Eosinophils still pending. On Daptomycin and Zyvox. Creatinine is slow to decline 2.49 (2) HTN (hypertension) ICD Codes: I10 - Essential (primary) hypertension Status: Chronic Plan: Continue Amlodipine and metoprolol Problem Qualifiers (1) HTN (hypertension): Qualified Codes: I10 - Essential (primary) hypertension Ebony Olmedo MD Jul 27, 2017 15:01
--- NOTE | 2017-07-27 15:30 | HHI.PR ---
Subjective Remarks alert weak Objective Vital Signs Date Time Temp Pulse Resp B/P (MAP) Pulse Ox O2 Delivery O2 Flow Rate FiO2 07/27/17 11:59 98.0 76 20 113/56 (75) 100 07/27/17 08:00 97.4 74 20 151/76 (101) 99 07/27/17 06:03 97.8 67 19 151/96 (114) 97 07/27/17 00:59 97.2 78 18 143/91 (108) 100 07/26/17 20:44 97.6 77 18 155/64 (94) 98 07/26/17 15:58 97.3 79 18 134/67 (89) 100 I/O 07/26/17 07/26/17 07/26/17 07/27/17 07/27/17 07/27/17 07:00 15:00 23:00 07:00 15:00 23:00 Intake Total 1200 ml 390 ml 1000 ml Output Total 700 ml 650 ml 2000 ml 400 ml Balance 500 ml -260 ml -1000 ml -400 ml Intake Oral 200 ml 390 ml IV Total 1000 ml 1000 ml Output Urine Total 700 ml 650 ml 2000 ml 400 ml # Bowel Movements 0 1 Result Diagram: 07/27/17 0542 07/27/17 0542 Objective Remarks GENERAL: SKIN: Warm and dry. HEAD: Atraumatic. Normocephalic. EYES: Pupils equal and round. No scleral icterus. No injection or drainage. ENT: No nasal bleeding or discharge. Mucous membranes pink and moist. NECK: Trachea midline. No JVD. CARDIOVASCULAR: Regular rate and rhythm. RESPIRATORY: No accessory muscle use. Clear to auscultation. Breath sounds equal bilaterally. GASTROINTESTINAL: Abdomen soft, non-tender, nondistended. Hepatic and splenic margins not palpable. MUSCULOSKELETAL: Extremities without clubbing, cyanosis, or edema. No obvious deformities. NEUROLOGICAL: Awake and alert. No obvious cranial nerve deficits. Motor grossly within normal limits. Five out of 5 muscle strength in the arms and legs. Normal speech. PSYCHIATRIC: Appropriate mood and affect; insight and judgment normal. Assessment and Plan Assessment and Plan left lung abscess endocarditis embolic stroke plan o2 antibx increase activity Drew Russell MD Jul 27, 2017 15:30
[2017-07-27 15:35] VITALS: BP 133/66; PULSE 76; RESP 20; TEMP 98; O2SAT 99
--- NOTE | 2017-07-27 17:02 | HHI.IDPN ---
Subjective Subjective Remarks ID COVERAGE Chart reviewed 57 year old diagnosed to have MRSA bacteremia and has MV IE Has loculated fluid collection in L apex, with some extension Notes reviewed D/W RN He is afebrile No new complaint Repeat CT chest shows decrease in fluid in L apex, with improving infiltrate; R lung clear Good UO Creat slightly lower WBC down to normal No new (+) BC Urine eos 0-2 Fluid C/S also with MRSA Last (+) BC 07/19 Not SOB Weak Has bryan, good UO Antibiotics Current Medications Cubicin Zyvox Medications (Trade) Dose Ordered Sig/Briseyda Route Start Time Stop Time Status Last Admin (NS Flush) 2 ml UNSCH PRN IV FLUSH 07/16/17 09:45 (NS Flush) 2 ml BID IV FLUSH 07/16/17 21:00 07/26/17 20:58 (Zofran Inj) 4 mg Q6H PRN IVP 07/16/17 09:45 (Lovenox Inj) 40 mg Q24H SQ 07/16/17 11:00 Future hold 07/27/17 09:39 (Milk Of Magnesia Liq) 30 ml Q12H PRN PO 07/16/17 09:45 (Senokot) 17.2 mg Q12H PRN PO 07/16/17 09:45 (Dulcolax Supp) 10 mg DAILY PRN RECTAL 07/16/17 09:45 (Lactulose Liq) 30 ml DAILY PRN PO 07/16/17 09:45 (Narcan Inj) 0.4 mg UNSCH PRN IV PUSH 07/16/17 19:00 (Lipitor) 40 mg HS PO 07/17/17 21:00 07/26/17 20:59 ([place] 5-325 Mg) 1 tab Q6H PRN PO 07/17/17 16:30 07/25/17 00:50 (KCl) 40 meq Q12HR PO 07/20/17 12:15 07/27/17 09:39 (Apresoline) 10 mg Q6HR PRN PO 07/21/17 13:00 07/25/17 00:49 Daptomycin 750 mg/ Sodium Chloride 100 ml @ 200 mls/hr Q48H IV 07/24/17 17:00 07/26/17 16:54 (Lopressor) 50 mg Q12HR PO 07/23/17 09:00 07/27/17 09:39 (Norvasc) 10 mg DAILY PO 07/26/17 09:00 07/27/17 09:39 (Zyvox) 600 mg Q12HR PO 07/25/17 12:00 07/27/17 09:39 Sodium Chloride 1,000 ml @ 100 mls/hr Q10H IV 07/25/17 14:32 07/27/17 14:14 Lines PIV Past Medical History BPH neuropathy Past Surgical History cervical spine fusion-- after a fall in 2002 lower spinal fusion 2 yrs ago prostatectomy, May 2017 Allergies: Coded Allergies: No Known Allergies (Verified Allergy, Unknown, 07/16/17) Objective . Vital Signs Date Time Temp Pulse Resp B/P (MAP) Pulse Ox O2 Delivery O2 Flow Rate FiO2 07/27/17 15:35 98.0 76 20 133/66 (88) 99 07/27/17 11:59 98.0 76 20 113/56 (75) 100 07/27/17 08:00 97.4 74 20 151/76 (101) 99 07/27/17 06:03 97.8 67 19 151/96 (114) 97 07/27/17 00:59 97.2 78 18 143/91 (108) 100 07/26/17 20:44 97.6 77 18 155/64 (94) 98 07/27/17 07/27/17 07/28/17 15:00 23:00 07:00 Intake Total 660 ml Output Total 400 ml Balance -400 ml 660 ml Intake Oral 660 ml Output Urine Total 400 ml . Laboratory Tests Test 07/26/17 06:50 07/27/17 05:42 White Blood Count 13.5 TH/MM3 10.0 TH/MM3 Red Blood Count 3.81 MIL/MM3 3.59 MIL/MM3 Hemoglobin 8.3 GM/DL 7.8 GM/DL Hematocrit 25.8 % 24.6 % Mean Corpuscular Volume 67.7 FL 68.5 FL Mean Corpuscular Hemoglobin 21.7 PG 21.8 PG Mean Corpuscular Hemoglobin Concent 32.1 % 31.8 % Red Cell Distribution Width 23.9 % 23.5 % Platelet Count 471 TH/MM3 435 TH/MM3 Mean Platelet Volume 7.2 FL 7.2 FL Neutrophils (%) (Auto) 65.9 % 67.0 % Lymphocytes (%) (Auto) 23.6 % 22.9 % Monocytes (%) (Auto) 6.7 % 6.4 % Eosinophils (%) (Auto) 2.2 % 2.7 % Basophils (%) (Auto) 1.6 % 1.0 % Neutrophils # (Auto) 8.9 TH/MM3 6.7 TH/MM3 Lymphocytes # (Auto) 3.2 TH/MM3 2.3 TH/MM3 Monocytes # (Auto) 0.9 TH/MM3 0.6 TH/MM3 Eosinophils # (Auto) 0.3 TH/MM3 0.3 TH/MM3 Basophils # (Auto) 0.2 TH/MM3 0.1 TH/MM3 CBC Comment DIFF FINAL DIFF FINAL Differential Comment Laboratory Tests Test 07/26/17 06:50 07/26/17 16:40 07/27/17 05:42 Blood Urea Nitrogen 28 MG/DL 25 MG/DL Creatinine 2.59 MG/DL 2.49 MG/DL Random Glucose 90 MG/DL 78 MG/DL Total Protein 9.3 GM/DL Albumin 2.1 GM/DL Calcium Level 9.0 MG/DL 8.8 MG/DL Alkaline Phosphatase 83 U/L Aspartate Amino Transf (AST/SGOT) 75 U/L Alanine Aminotransferase (ALT/SGPT) 61 U/L Total Bilirubin 0.4 MG/DL Sodium Level 138 MEQ/L 138 MEQ/L Potassium Level 4.3 MEQ/L 4.0 MEQ/L Chloride Level 108 MEQ/L 108 MEQ/L Carbon Dioxide Level 20.8 MEQ/L 23.7 MEQ/L Anion Gap 9 MEQ/L 6 MEQ/L Estimat Glomerular Filtration Rate 31 ML/MIN 32 ML/MIN Total Creatine Kinase 126 U/L Imaging RADIOLOGY STUDIES/FILMS REVIEWED Chest CT 07/26/17 0600 Signed Impressions: Service Date/Time: Wednesday, July 26, 2017 09:11 - CONCLUSION: Interval placement of percutaneous drainage catheter. The abscess is smaller and there is no residual fluid or air now noted. Residual infiltrate remains in the left upper lobe. Akash Calvert MD Chest X-Ray 07/24/17 0000 Signed Impressions: Service Date/Time: Monday, July 24, 2017 08:40 - CONCLUSION: No pneumothorax. Decreasing density left apex. Tahir Miramontes MD Renal Ultrasound 07/23/17 0000 Signed Impressions: Service Date/Time: Sunday, July 23, 2017 10:36 - CONCLUSION: 1. Kidneys are echogenic which can be seen with medical renal disease. 2. Echogenic lesion right mid kidney likely represents angiomyolipoma versus less likely calculus. 3. Bilateral renal cysts. Tahir Miramontes MD Abscess Drainage CT 07/23/17 0000 Signed Impressions: Service Date/Time: Sunday, July 23, 2017 16:48 - CONCLUSION: Uncomplicated CT guided drainage of the empyema in the left apex. Tahir Miramontes MD Shoulder X-Ray 07/20/17 0000 Signed Impressions: Service Date/Time: Thursday, July 20, 2017 12:54 - CONCLUSION: No evidence of fracture. Cliff Lomeli MD Shoulder MRI 07/20/17 0000 Signed Impressions: Service Date/Time: Thursday, July 20, 2017 12:09 - CONCLUSION: 1. Abscess of the left lung apex again seen with anterior and posterior extension of abnormal enhancement and edema. There is extension of abscess anteriorly just inferior to the sternoclavicular joint. Elongated extension of abscess along the deep margin of the pectoralis muscle also noted. Extension of the edema and enhancement suggesting soft tissue infection in the region of the proximal coracobrachialis and biceps muscles. 2. No evidence of osteomyelitis. 3. Glenohumeral joint within normal limits. 4. Moderate acromioclavicular joint arthrosis. 5. Rotator cuff tendons are intact. Cliff Lomeli MD Abdomen X-Ray 07/19/17 0000 Signed Impressions: Service Date/Time: Wednesday, July 19, 2017 14:08 - CONCLUSION: Bowel distention as described above. There is no free air. Fredy Vega MD FACR Neck Magnetic Resonance Angiography 07/17/17 0000 Signed Impressions: Service Date/Time: Monday, July 17, 2017 09:00 - CONCLUSION: 1. Normal carotid arteries. Tahir Miramontes MD Head Magnetic Resonance Angiography 07/17/17 0000 Signed Impressions: Service Date/Time: Monday, July 17, 2017 09:00 - CONCLUSION: 1. No large vessel aneurysm or stenosis. 2. Normal variants as described above. Tahir Miramontes MD Thoracic Spine MRI 07/16/17 0000 Signed Impressions: Service Date/Time: Sunday, July 16, 2017 10:42 - CONCLUSION: 1. Multilevel disc spurs at T3-4, T5-T6 scan, most significantly at T9-10. Despite degenerative changes, there is no cord compromise at any thoracic level. No significant change from prior. 2. Possible loculated effusion in the left lung apex. Bonifacio Echeverria MD Lumbar Spine MRI 07/16/17 0000 Signed Impressions: Service Date/Time: Sunday, July 16, 2017 10:42 - CONCLUSION: 1. Stable CT scan of the lumbar spine compared to the prior examination of 07/29/2015. 2. No evidence to suggest discitis or osteomyelitis. 3. There continues to be spinal canal stenosis at L3-4 and L4-5 without significant change compared to the prior study. Fahad Garrido MD Head CT 07/16/17 0000 Signed Impressions: Service Date/Time: Sunday, July 16, 2017 07:04 - CONCLUSION: Unremarkable study. Sree Lind MD Cervical Spine MRI 07/16/17 0000 Signed Impressions: Service Date/Time: Sunday, July 16, 2017 10:42 - CONCLUSION: 1. Stable overall appearance of the cervical spine compared to the prior examination of 07/28/2015. 2. Specifically, no evidence to suggest discitis or osteomyelitis. Fahad Garrido MD Brain MRI 07/16/17 0000 Signed Impressions: Service Date/Time: Sunday, July 16, 2017 10:42 - CONCLUSION: 1. 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 Vasquez Thayer MD Abdomen/Pelvis CT 07/16/17 0000 Signed Impressions: Service Date/Time: Sunday, July 16, 2017 12:49 - CONCLUSION: 1. Suprapubic catheter present presumably passing into bladder with thickened bladder wall. There is a Bryan catheter present with the balloon in the lower bladder or possibly within the prostatic region. Patient is reportedly status post prostatectomy. 2. Diffuse ileus. Stable renal cysts. 3. Mild inflammatory changes left lung base. Ryan Byrnes MD Physical Exam GENERAL: up in chair, slow to respond, not in distress SKIN: Cool, moist, not diaphoretic. No rash HEENT: Pale conjunctiva, no petechia or hemorrhage, full EOM, dry oral mucosa NECK: Supple and not tender CARDIOVASCULAR: Regular rate and rhythm, no murmurs, or rubs. RESPIRATORY/CHEST: Clear to auscultation. Breath sounds equal bilaterally. No wheezes, rales, or rhonchi. Has CT in L upper back, not a lot of output GASTROINTESTINAL: Abdomen soft, obese, non-tender, nondistended. No guarding. Bowel sounds present. GENITOURINARY: SP cath is capped. Bryan in place, with some sediment MUSCULOSKELETAL: Extremities without clubbing, cyanosis, + 1 edema. No joint tenderness or effusion noted. No calf tenderness. NEUROLOGICAL: Awakens easily, but slow. Follows commands. 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 - eos in urine 0-2 PLAN Follow C/S Continue Cubicin - follow CPK Continue Zyvox Will not switch back in light of renal injury, still not sure etiology of acute rise in his creatinine Repeat BC are now negative, his last (+) BC maybe due to undrained empyema/ abscess, which now has percutaneous drainage cath Follow creatinine - renal following Monitor progress Nydia Fowler MD Jul 27, 2017 17:02
[2017-07-27 20:00] VITALS: BP 123/63; PULSE 80; RESP 20; TEMP 98.2; O2SAT 100
[2017-07-27] MEDS: ATORVASTATIN 40 MG TAB PO SCH (21:19)
[2017-07-28] VITALS: BP 134/68; PULSE 73; RESP 20; TEMP 97.6; O2SAT 98
[2017-07-28 04:00] VITALS: BP 119/78; PULSE 74; RESP 20; TEMP 98.3; O2SAT 99
[2017-07-28] MEDS: SODIUM CHLOR 0.9% 1000 ML INJ 1,000 ML IV SCH (06:10)
[2017-07-28 06:33] LABS: BICARBONATE 21.5 MEQ/L (21.0-32.0); CALCIUM 8.9 MG/DL (8.5-10.1); CREATININE 2.31 MG/DL (0.60-1.30)
[2017-07-28 08:48] LABS: AUTOMATED NEUTROPHIL # 5.5 TH/MM3 (1.8-7.7); BASOPHIL # 0.2 TH/MM3 (0-0.2); BASOPHIL % 1.8 % (0.0-2.0); EOSINOPHIL # 0.3 TH/MM3 (0-0.4); EOSINOPHIL % 3.2 % (0.0-4.0); HEMATOCRIT 24.3 % (39.0-51.0); HEMOGLOBIN 7.8 GM/DL (13.0-17.0); LYMPH % 27.2 % (9.0-44.0); LYMPHOCYTE # 2.5 TH/MM3 (1.0-4.8); MEAN CELL VOLUME 67.9 FL (80.0-100.0); MEAN CORPUSCULAR HEMOGLOBIN 21.9 PG (27.0-34.0); MEAN CORPUSCULAR HGB CONC 32.2 % (32.0-36.0); MEAN PLATELET VOLUME 8.2 FL (7.0-11.0); MONO % 7.4 % (0.0-8.0); MONOCYTE # 0.7 TH/MM3 (0-0.9); NEUT % 60.4 % (16.0-70.0); PLATELET COUNT 410 TH/MM3 (150-450); RED BLOOD COUNT 3.57 MIL/MM3 (4.50-5.90)
[2017-07-28] MEDS: ENOXAPARIN SODIUM 40 MG/0.4 ML SYRINGE SQ SCH (09:26)
[2017-07-28] MEDS: LINEZOLID 600 MG TAB PO SCH ×2 (09:27→21:10)
[2017-07-28] MEDS: METOPROLOL TARTRATE 50 MG TAB PO SCH ×2 (09:27→21:10)
[2017-07-28] MEDS: POTASSIUM CHLORIDE 10 MEQ CONTROLLED RELEASE TAB PO SCH ×2 (09:28→21:10)
[2017-07-28] MEDS: SODIUM CHLORIDE 0.9% FLUSH 10 ML FLUSH IV FLUSH SCH ×2 (09:28→21:00)
[2017-07-28] MEDS ORDERED: ENOXAPARIN SODIUM 30 MG/0.3 ML SYRINGE SQ SCH (10:00)
--- NOTE | 2017-07-28 10:05 | HHI.FPPN ---
Subjective Remarks Patient seen and examined bedside this morning. Patient has greatly improved over the last few days. The sister is there assisting him with breakfast as he is sitting in the chair. He is eating without difficulty. He seems awake alert and oriented. He states his left-sided shoulder and arm pain is now very mild. He has been ambulate with assistance and per the sister he is almost back to normal. He denies any chest pain/shortness of breath/dizziness. No acute events overnight. (Evangelina Jones MD R2) Objective Vitals Vital Signs Date Time Temp Pulse Resp B/P (MAP) Pulse Ox O2 Delivery O2 Flow Rate FiO2 07/28/17 04:00 98.3 74 20 119/78 (92) 99 07/28/17 00:00 97.6 73 20 134/68 (90) 98 07/27/17 20:00 98.2 80 20 123/63 (83) 100 07/27/17 15:35 98.0 76 20 133/66 (88) 99 07/27/17 11:59 98.0 76 20 113/56 (75) 100 I/O 07/27/17 07/27/17 07/27/17 07/28/17 07/28/17 07/28/17 07:00 15:00 23:00 07:00 15:00 23:00 Intake Total 1000 ml 660 ml 400 ml Output Total 2000 ml 400 ml 2200 ml Balance -1000 ml -400 ml 660 ml -1800 ml Intake Oral 660 ml 400 ml IV Total 1000 ml Output Urine Total 2000 ml 400 ml 2200 ml # Bowel Movements 0 (Evangelina Jones MD R2) Result Diagram: 07/28/17 0800 07/28/17 0442 Objective Remarks GENERAL: Patient sitting upright in chair comfortably in no acute distress. SKIN: . Cool and dry. HEAD: Atraumatic. Normocephalic. EYES: Extraocular motions intact. No scleral icterus. No injection or drainage. ENT: Nose without bleeding, purulent drainage or septal hematoma. Airway patent. NECK: Trachea midline. No JVD or lymphadenopathy. Supple, nontender, no meningeal signs. CARDIOVASCULAR: Regular rate and rhythm without murmurs, gallops, or rubs. RESPIRATORY: Good air movement BL. No wheezes or crackles appreciated GASTROINTESTINAL: Abdomen soft, non-tender, non-distended. Supra pubic catheter in place MUSCULOSKELETAL: Extremities without clubbing, cyanosis, or edema. Bandage overlying prior drain site on the posterior aspect of the left shoulder is clean dry and intact with no visible drainage, drain removed. No joint tenderness, effusion, or edema noted. No calf tenderness. NEUROLOGICAL: Cranial nerves II through XII grossly intact. Somewhat slurred speech/difficult to understand but unchanged from previous exams. (Evangelina Jones MD R2) A/P Assessment and Plan Patient is 57-year-old M with PMHx BPH and s/p prostatectomy (on 05/2017) presented to the ED with 2 wks of progressive worsening left side pain and weakness associated with GAINES. Urologist Dr. Patel, completed the surgery. Pt found to have Left apical lung mass with supraclavicular extension on imaging and focal embolic in in brain MRI. Pt treated for MRSA bacteremia. ALEX results positive for small mitral valve vegetation, likely resulting in the septic emboli to the brain. Pt had IR Aspiration of apical lung mass on 07/24 with cultures growing MRSA. Last positive blood cultures on 07/19, blood cultures on negative. Course complicated by acute rise in creatinine, of unsure etiology , followed by nephrology Discharge Planning Patient will need discharge on IV antibiotics, to facility (Evangelina Jones MD R2) Attending Attestation Patient seen and examined, discussed with resident team. I agree with assessment and management as documented and discussed with me. (Marilyn Chiu MD) Problem List: (1) Bacteremia due to Gram-positive bacteria ICD Codes: R78.81 - Bacteremia Plan: Blood cultures on admission (07/16): Positive for MRSA. Repeat cultures on 07/19 continued to grow MRSA Repeat cultures 07/21: NG 5 days Repeat cultures 07/23: NG x 4 days Urine Cx 07/16: Negative Repeat Ucx 07/23: Negative History of rectal temp of 102.5, and ESR of 140 on admission and CRP 37 now afebrile 5.9 cm abscess with suspected pneumonia surrounding IR aspiration cultures from 07/23 growing MRSA, tentative to clindamycin, daptomycin, levofloxacin, linezolid, Bactrim, vanc -Infectious disease consulted and Pulm Consulted, appreciate recommendations; Received vancomycin from 07/16 - 07/21 Switched to daptomycin on 07/22 by ID Received Zosyn from 07/16-07/20 Started Linezolid on 07/25 by ID high-grade with embolic brain lesions, likely underlying endocarditis in view of ALEX Embolic stroke with left-sided hemiplegia -Echo negative for endocarditis ALEX results: Mitral valve was structurally normal, but there was evidence of a small mobile mitral valve vegetation. Borderline normal left ventricular systolic function. Trace regurgitation of mitral and tricuspid valve. Trace pulmonary insufficiency (2) Endocarditis ICD Codes: I38 - Endocarditis, valve unspecified Plan: see plan above for bacteremia (3) OLLIE (acute kidney injury) ICD Codes: N17.9 - Acute kidney failure, unspecified Plan: Elevated creatinine appreciated on 07/21, now stable at 2.31 BUN WNL No known history of CKD, hx of BPH and prostatectomy in May 2017, suprapubic catheter placement with inability to void and subsequently capped and urethral catheter placed ATN via medication (IV Vanc) or sepsis vs. Post-obstructive uropathy vs. AIN -renal u/s: kidneys echogenic, medical renal disease likely -Nephrology consultation, appreciate recommendations -Elevated urine eosinophils at 0-2; possible emboli to kidneys versus AIN IV fluids at 100 mL/hr (4) Lung mass ICD Codes: R91.8 - Other nonspecific abnormal finding of lung field Status: Acute Plan: Likely abscess related to MRSA bacteremia, less likely neoplasm -Pulm and ID consulted, recommendation appreciated - IR abscess culture and continue drainage on 07/23 07/23: Cultures growing MRSA - sensitive to Daptomycin, Linezolid -CT chest 07/26 showed smaller abscess, no residual fluid or air noted - drain removed on 07/[address] 07/16/17: Complex loculated 5.9 cm fluid attenuation area at the left lung apex most characteristic of an abscess stanchion into the extrathoracic soft tissues superiorly and extending supraclavicular with locules of air present in the supraclavicular region and within the chest lesion. There is a suspected surrounding pneumonia upper left lung. Cannot exclude necrotic neoplasm. This would be amenable to CT guided aspiration. Mildly enlarged mediastinal and left hilar lymph nodes. Trace left pleural effusion. CRX 07/16: 5cm masslike opacity at the left apex -CXR (07/19): Stable from previous imaging CXR (07/21): Persistent complete opacification of left upper lobe and progressive volume loss with increased parenchymal density within the remainder of the left lower lobe CXR (07/23): No pneumothorax, decreasing density in the left apex (5) HTN (hypertension) ICD Codes: I10 - Essential (primary) hypertension Status: Chronic Plan: Blood pressure is well controlled No reported history of hypertension, normotensive at time of admission Continue metoprolol tartrate 50 mg twice a day Continue amlodipine to 10 mg daily per nephrology recommendations Continue hydralazine as needed for systolic blood pressures >180, diastolic blood pressures >100 (6) Focal infarction of brain ICD Codes: I63.9 - Cerebral infarction, unspecified Plan: Brain MRI with findings consistent with small focal infarcts, likely embolic in the right occipital lobe and right parietal high convexities near the vertex. Based on patient history, likely have been present for 2 weeks+ -Head CT within normal limits -Neck MRA normal -PT and OT consulted -Continue statin -Monitor vitals, keep BP controlled (7) Left-sided weakness ICD Codes: R53.1 - Weakness Status: Acute Plan: L sided weakness/severe pain, worse at L shoulder Septic arthritis versus mass effect -neuro checks Q4h -Out of bed with assistance -PT to evaluate, recommendations: Continue physical therapy at rehabilitation and OT therapy. -Will submit OT referral for evaluation Imaging: -MRI lumbar spine: no osteomyelitis, spinal canal stenosis at L3-L5, no significant change from prior study -MRI thoracic spine: multilevel disc spurs at T3-4 and T5-T6 and T9-10, no cord compression, no significant change from prior study -MRI brain: Small focal infarcts likely embolic in the right occipital lobe and right parietal high convexities near the vertex. - Head MRA normal - Echo: EF of 50%. Trace tricuspid valve regurgitation. Otherwise normal echo. - ALEX: small mitral valve vegetation (8) Nutrition, metabolism, and development symptoms ICD Codes: R63.8 - Other symptoms and signs concerning food and fluid intake Plan: Fluids: 100 mls/hr with K Electrolytes: WNL, replete as needed. Nutrition: regular diet DVT ppx: lovenox (Evangelina Jones MD R2) Problem Qualifiers (1) HTN (hypertension): Qualified Codes: I10 - Essential (primary) hypertension Evangelina Jones MD R2 Jul 28, 2017 10:05 Marilyn Chiu MD Jul 29, 2017 16:33
[2017-07-28 12:00] VITALS: BP 119/57; PULSE 70; RESP 19; TEMP 97.9; O2SAT 100
--- NOTE | 2017-07-28 13:30 | HHI.NPPN ---
Subjective Renal Failure: Acute History of Present Illness Patient is 57-year-old with PMHx BPH and s/p prostatectomy (on 05/2017) presented to the ED with 2 wks of progressive worsening left side pain and weakness associated with GAINES. Pt follows with urologist Dr. Patel, who completed the surgery. Per records patient had suprapubic catheter placed in May. After prostatectomy pt was unable to void and received 2nd (07/01/2017 ) surgery for placement of urethral catheter. At that time supra pubic catheter was capped. Over the last couple of days there is a significant rise in creatinine at 2.71 today from 0.97 on admission. Has indwelling urinary catheter that is draining urine. Being treated for MRSA sepsis, high grade with embolic brain lesions, with confirmed mitral valve endocarditis persistently positive blood clx. Vancomycin discontinued and on daptomycin. Additional Remarks OOB in chair. Oriented to self. Patient denies any SOB. Review of Systems Respiratory Respiratory Remarks Denies SOB Cardiovascular Cardiac Remarks Denies CP Gastrointestinal GI Remarks denies any Abdominal pain Genitourinary Remarks Denies dysuria Objective Data Data Vital Signs Date Time Temp Pulse Resp B/P (MAP) Pulse Ox O2 Delivery O2 Flow Rate FiO2 07/28/17 12:00 97.9 70 19 119/57 (77) 100 07/28/17 04:00 98.3 74 20 119/78 (92) 99 07/28/17 00:00 97.6 73 20 134/68 (90) 98 07/27/17 20:00 98.2 80 20 123/63 (83) 100 07/27/17 15:35 98.0 76 20 133/66 (88) 99 -: 07/28/17 0800 07/28/17 0442 Physical Exam General Appearance: Obese Eyes Eye Exam: Pupils Equal Throat Throat Exam: Oral Mucosa [place] & Moist Pulmonary Resp Exam: Breath Sounds Equal, No Distress, Decreased Bases Cardiology CV Exam: Regular, Normal Sinus Rhythm Gastrointestinal/Abdomen GI Exam: Soft, Bowel Sounds Present Genitourinary Exam: Flank Non-Tender Integumentary Skin Exam: Clear, Warm Extremeties Extremities Exam: Trace Edema Neurologic Neuro Exam: Alert, Awake Psychiatric Psych Exam: Appropriate Responses Assessment/Plan Problem List: (1) OLLIE (acute kidney injury) ICD Codes: N17.9 - Acute kidney failure, unspecified Plan: OLLIE with possibly ATN from sepsis, complicated UTI not confirmed and endocarditis. Other possibility is Vanco. toxicity and also to rule out Acute Interstitial Nephritis. No previous history of Kidney disease. Suprapubic cath capped. Indwelling catheter Renal US: Kidneys are echogenic which can be seen with medical renal disease, Echogenic lesion right mid kidney likely represents angiomyolipoma versus less likely calculus and Bilateral renal cysts. Creatinine slightly decreased at 2.49 Plan Continue IVF;s Monitor I+O Avoid nephrotoxins. Continue to monitor renal function Urine for Eosinophils still pending. On Daptomycin and Zyvox. Creatinine is slow to decline 2.31 Dr. Marte to follow (2) HTN (hypertension) ICD Codes: I10 - Essential (primary) hypertension Status: Chronic Plan: Continue Amlodipine and metoprolol Problem Qualifiers (1) HTN (hypertension): Qualified Codes: I10 - Essential (primary) hypertension Ebony Olmedo MD Jul 28, 2017 13:30
[2017-07-28 16:00] VITALS: BP 124/58; PULSE 72; RESP 18; TEMP 97.8; O2SAT 98
[2017-07-28] MEDS: DAPTOmycin INJ 750 MG in SODIUM CHLORIDE 0.9% INJ 100 ML IV SCH (16:51)
[2017-07-28 20:50] VITALS: BP 136/63; PULSE 73; RESP 18; TEMP 97; O2SAT 99
[2017-07-28] MEDS: ATORVASTATIN 40 MG TAB PO SCH (21:10)
[2017-07-29] VITALS (7 sets, daily range): BP systolic 109–179; BP diastolic 56–74; PULSE 71–81; RESP 16–20; TEMP 97.2–98.2; O2SAT 97–100
[2017-07-29] MEDS: SODIUM CHLOR 0.9% 1000 ML INJ 1,000 ML IV SCH ×2 (06:00→08:20)
[2017-07-29 07:26] LABS: AUTOMATED NEUTROPHIL # 5.4 TH/MM3 (1.8-7.7); BASOPHIL # 0.1 TH/MM3 (0-0.2); BASOPHIL % 1.5 % (0.0-2.0); EOSINOPHIL # 0.3 TH/MM3 (0-0.4); EOSINOPHIL % 3.8 % (0.0-4.0); HEMATOCRIT 22.9 % (39.0-51.0); HEMOGLOBIN 7.5 GM/DL (13.0-17.0); LYMPH % 27.3 % (9.0-44.0); LYMPHOCYTE # 2.4 TH/MM3 (1.0-4.8); MEAN CELL VOLUME 67.6 FL (80.0-100.0); MEAN CORPUSCULAR HEMOGLOBIN 22.2 PG (27.0-34.0); MEAN CORPUSCULAR HGB CONC 32.8 % (32.0-36.0); MEAN PLATELET VOLUME 7.2 FL (7.0-11.0); MONO % 7.1 % (0.0-8.0); MONOCYTE # 0.6 TH/MM3 (0-0.9); NEUT % 60.3 % (16.0-70.0); PLATELET COUNT 403 TH/MM3 (150-450); RED BLOOD COUNT 3.38 MIL/MM3 (4.50-5.90); RED CELL DISTRIBUTION WIDTH 23.6 % (11.6-17.2); WHITE BLOOD COUNT 8.9 TH/MM3 (4.0-11.0)
[2017-07-29 07:47] LABS: BICARBONATE 22.1 MEQ/L (21.0-32.0); CALCIUM 8.7 MG/DL (8.5-10.1); CREATININE 2.06 MG/DL (0.60-1.30)
[2017-07-29] MEDS: SODIUM CHLORIDE 0.9% FLUSH 10 ML FLUSH IV FLUSH SCH ×2 (08:20→21:30)
[2017-07-29] MEDS: METOPROLOL TARTRATE 50 MG TAB PO SCH ×2 (08:20→21:29)
[2017-07-29] MEDS: POTASSIUM CHLORIDE 10 MEQ CONTROLLED RELEASE TAB PO SCH ×2 (08:20→21:29)
[2017-07-29] MEDS: LINEZOLID 600 MG TAB PO SCH ×2 (08:20→21:29)
[2017-07-29] MEDS ORDERED: ENOXAPARIN SODIUM 30 MG/0.3 ML SYRINGE SQ SCH (10:00)
--- NOTE | 2017-07-29 10:22 | HHI.IDPN ---
Subjective Subjective Remarks ID COVERAGE Chart reviewed 57 year old diagnosed to have MRSA bacteremia and has MV IE Has loculated fluid collection in L apex, with some extension Notes reviewed He is afebrile Drain has been removed Working with PT - doing some ambulation using a walker, slow, but steady on his feet No new complaint Repeat CT chest shows decrease in fluid in L apex, with improving infiltrate; R lung clear Good UO Creat slightly lower WBC down to normal No new (+) BC Urine eos 0-2 Fluid C/S also with MRSA Last (+) BC 07/19 Not SOB Has bryan, good UO Antibiotics Current Medications Cubicin Zyvox Medications (Trade) Dose Ordered Sig/Briseyda Route Start Time Stop Time Status Last Admin (NS Flush) 2 ml UNSCH PRN IV FLUSH 07/16/17 09:45 (NS Flush) 2 ml BID IV FLUSH 07/16/17 21:00 07/27/17 21:19 (Zofran Inj) 4 mg Q6H PRN IVP 07/16/17 09:45 (Milk Of Magnesia Liq) 30 ml Q12H PRN PO 07/16/17 09:45 (Senokot) 17.2 mg Q12H PRN PO 07/16/17 09:45 (Dulcolax Supp) 10 mg DAILY PRN RECTAL 07/16/17 09:45 (Lactulose Liq) 30 ml DAILY PRN PO 07/16/17 09:45 (Narcan Inj) 0.4 mg UNSCH PRN IV PUSH 07/16/17 19:00 (Lipitor) 40 mg HS PO 07/17/17 21:00 07/28/17 21:10 ([place] 5-325 Mg) 1 tab Q6H PRN PO 07/17/17 16:30 07/25/17 00:50 (KCl) 40 meq Q12HR PO 07/20/17 12:15 07/29/17 08:20 (Apresoline) 10 mg Q6HR PRN PO 07/21/17 13:00 07/25/17 00:49 Daptomycin 750 mg/ Sodium Chloride 100 ml @ 200 mls/hr Q48H IV 07/24/17 17:00 07/28/17 16:51 (Lopressor) 50 mg Q12HR PO 07/23/17 09:00 07/29/17 08:20 (Norvasc) 10 mg DAILY PO 07/26/17 09:00 07/29/17 08:19 (Zyvox) 600 mg Q12HR PO 07/25/17 12:00 07/29/17 08:20 Sodium Chloride 1,000 ml @ 100 mls/hr Q10H IV 07/25/17 14:32 07/29/17 06:00 (Lovenox Inj) 30 mg Q24H SQ 07/29/17 10:00 07/29/17 08:19 Lines PIV Past Medical History BPH neuropathy Past Surgical History cervical spine fusion-- after a fall in 2002 lower spinal fusion 2 yrs ago prostatectomy, May 2017 Allergies: Coded Allergies: No Known Allergies (Verified Allergy, Unknown, 07/16/17) Objective . Vital Signs Date Time Temp Pulse Resp B/P (MAP) Pulse Ox O2 Delivery O2 Flow Rate FiO2 07/29/17 07:43 97.4 72 20 179/74 (109) 100 07/29/17 06:14 98.2 77 18 143/70 (94) 98 07/29/17 01:57 98.0 81 18 136/61 (86) 98 07/28/17 20:50 97.0 73 18 136/63 (87) 99 07/28/17 16:00 97.8 72 18 124/58 (80) 98 07/28/17 12:00 97.9 70 19 119/57 (77) 100 . Laboratory Tests Test 07/28/17 08:00 07/29/17 06:55 White Blood Count 9.0 TH/MM3 8.9 TH/MM3 Red Blood Count 3.57 MIL/MM3 3.38 MIL/MM3 Hemoglobin 7.8 GM/DL 7.5 GM/DL Hematocrit 24.3 % 22.9 % Mean Corpuscular Volume 67.9 FL 67.6 FL Mean Corpuscular Hemoglobin 21.9 PG 22.2 PG Mean Corpuscular Hemoglobin Concent 32.2 % 32.8 % Red Cell Distribution Width 24.0 % 23.6 % Platelet Count 410 TH/MM3 403 TH/MM3 Mean Platelet Volume 8.2 FL 7.2 FL Neutrophils (%) (Auto) 60.4 % 60.3 % Lymphocytes (%) (Auto) 27.2 % 27.3 % Monocytes (%) (Auto) 7.4 % 7.1 % Eosinophils (%) (Auto) 3.2 % 3.8 % Basophils (%) (Auto) 1.8 % 1.5 % Neutrophils # (Auto) 5.5 TH/MM3 5.4 TH/MM3 Lymphocytes # (Auto) 2.5 TH/MM3 2.4 TH/MM3 Monocytes # (Auto) 0.7 TH/MM3 0.6 TH/MM3 Eosinophils # (Auto) 0.3 TH/MM3 0.3 TH/MM3 Basophils # (Auto) 0.2 TH/MM3 0.1 TH/MM3 CBC Comment DIFF FINAL DIFF FINAL Differential Comment Laboratory Tests Test 07/28/17 04:42 07/29/17 06:55 Blood Urea Nitrogen 20 MG/DL 18 MG/DL Creatinine 2.31 MG/DL 2.06 MG/DL Random Glucose 78 MG/DL 80 MG/DL Calcium Level 8.9 MG/DL 8.7 MG/DL Sodium Level 138 MEQ/L 138 MEQ/L Potassium Level 3.9 MEQ/L 3.9 MEQ/L Chloride Level 108 MEQ/L 109 MEQ/L Carbon Dioxide Level 21.5 MEQ/L 22.1 MEQ/L Anion Gap 9 MEQ/L 7 MEQ/L Estimat Glomerular Filtration Rate 35 ML/MIN 40 ML/MIN Imaging RADIOLOGY STUDIES/FILMS REVIEWED Chest CT 07/26/17 0600 Signed Impressions: Service Date/Time: Wednesday, July 26, 2017 09:11 - CONCLUSION: Interval placement of percutaneous drainage catheter. The abscess is smaller and there is no residual fluid or air now noted. Residual infiltrate remains in the left upper lobe. Akash Calvert MD Chest X-Ray 07/24/17 0000 Signed Impressions: Service Date/Time: Monday, July 24, 2017 08:40 - CONCLUSION: No pneumothorax. Decreasing density left apex. Tahir Miramontes MD Renal Ultrasound 07/23/17 0000 Signed Impressions: Service Date/Time: Sunday, July 23, 2017 10:36 - CONCLUSION: 1. Kidneys are echogenic which can be seen with medical renal disease. 2. Echogenic lesion right mid kidney likely represents angiomyolipoma versus less likely calculus. 3. Bilateral renal cysts. Tahir Miramontes MD Abscess Drainage CT 07/23/17 0000 Signed Impressions: Service Date/Time: Sunday, July 23, 2017 16:48 - CONCLUSION: Uncomplicated CT guided drainage of the empyema in the left apex. Tahir Miramontes MD Shoulder X-Ray 07/20/17 0000 Signed Impressions: Service Date/Time: Thursday, July 20, 2017 12:54 - CONCLUSION: No evidence of fracture. Cliff Lomeli MD Shoulder MRI 07/20/17 0000 Signed Impressions: Service Date/Time: Thursday, July 20, 2017 12:09 - CONCLUSION: 1. Abscess of the left lung apex again seen with anterior and posterior extension of abnormal enhancement and edema. There is extension of abscess anteriorly just inferior to the sternoclavicular joint. Elongated extension of abscess along the deep margin of the pectoralis muscle also noted. Extension of the edema and enhancement suggesting soft tissue infection in the region of the proximal coracobrachialis and biceps muscles. 2. No evidence of osteomyelitis. 3. Glenohumeral joint within normal limits. 4. Moderate acromioclavicular joint arthrosis. 5. Rotator cuff tendons are intact. Cliff Lomeli MD Abdomen X-Ray 07/19/17 0000 Signed Impressions: Service Date/Time: Wednesday, July 19, 2017 14:08 - CONCLUSION: Bowel distention as described above. There is no free air. Fredy Vega MD FACR Neck Magnetic Resonance Angiography 07/17/17 0000 Signed Impressions: Service Date/Time: Monday, July 17, 2017 09:00 - CONCLUSION: 1. Normal carotid arteries. Tahir Miramontes MD Head Magnetic Resonance Angiography 07/17/17 0000 Signed Impressions: Service Date/Time: Monday, July 17, 2017 09:00 - CONCLUSION: 1. No large vessel aneurysm or stenosis. 2. Normal variants as described above. Tahir Miramontes MD Thoracic Spine MRI 07/16/17 0000 Signed Impressions: Service Date/Time: Sunday, July 16, 2017 10:42 - CONCLUSION: 1. Multilevel disc spurs at T3-4, T5-T6 scan, most significantly at T9-10. Despite degenerative changes, there is no cord compromise at any thoracic level. No significant change from prior. 2. Possible loculated effusion in the left lung apex. Bonifacio Echeverria MD Lumbar Spine MRI 07/16/17 0000 Signed Impressions: Service Date/Time: Sunday, July 16, 2017 10:42 - CONCLUSION: 1. Stable CT scan of the lumbar spine compared to the prior examination of 07/29/2015. 2. No evidence to suggest discitis or osteomyelitis. 3. There continues to be spinal canal stenosis at L3-4 and L4-5 without significant change compared to the prior study. Fahad Garrido MD Head CT 07/16/17 0000 Signed Impressions: Service Date/Time: Sunday, July 16, 2017 07:04 - CONCLUSION: Unremarkable study. Sree Lind MD Cervical Spine MRI 07/16/17 0000 Signed Impressions: Service Date/Time: Sunday, July 16, 2017 10:42 - CONCLUSION: 1. Stable overall appearance of the cervical spine compared to the prior examination of 07/28/2015. 2. Specifically, no evidence to suggest discitis or osteomyelitis. Fahad Garrido MD Brain MRI 07/16/17 0000 Signed Impressions: Service Date/Time: Sunday, July 16, 2017 10:42 - CONCLUSION: 1. 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 Vasquez Thayer MD Abdomen/Pelvis CT 07/16/17 0000 Signed Impressions: Service Date/Time: Sunday, July 16, 2017 12:49 - CONCLUSION: 1. Suprapubic catheter present presumably passing into bladder with thickened bladder wall. There is a Bryan catheter present with the balloon in the lower bladder or possibly within the prostatic region. Patient is reportedly status post prostatectomy. 2. Diffuse ileus. Stable renal cysts. 3. Mild inflammatory changes left lung base. Ryan Byrnes MD Physical Exam GENERAL: up in chair, mental status very awake, smiling, not in distress SKIN: Cool, moist, not diaphoretic. No rash HEENT: Pale conjunctiva, no petechia or hemorrhage, full EOM, dry oral mucosa NECK: Supple and not tender CARDIOVASCULAR: Regular rate and rhythm, no murmurs, or rubs. RESPIRATORY/CHEST: Clear to auscultation. Breath sounds equal bilaterally. No wheezes, rales, or rhonchi. GASTROINTESTINAL: Abdomen soft, obese, non-tender, nondistended. No guarding. Bowel sounds present. GENITOURINARY: SP cath is capped. Bryan in place, urine clear MUSCULOSKELETAL: Extremities without clubbing, cyanosis, + 1 edema. No joint tenderness or effusion noted. No calf tenderness. NEUROLOGICAL: Awake and alert. Non-focal PSYCHIATRIC: Cooperative LINE: No evidence of infection Assessment & Plan Remarks MRSA sepsis, high grade with embolic brain lesions, with confirmed mitral valve endocarditis - last (+) BC 07/19; 07/21 negative so far Complex loculated 5.9 cm fluid attenuation area at the left lung apex most characteristic of an abscess with extension into the extrathoracic soft tissues - empyema/abscess, has drainage cath - this could explain persistent (+) BC - drained, with improvement on last CT Suspected complex UTI sp prostatic surgery and SP cath - culture not confirmed infection Mitral valve endocarditis 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 - eos in urine 0-2 - creatinine slowly decreasing PLAN Follow C/S Continue Cubicin - follow CPK Continue Zyvox Will not switch back to Vanco for now, in light of renal injury, still not sure etiology of acute rise in his creatinine; has some eos in urine Repeat BC are now negative, his last (+) BC maybe due to undrained empyema/ abscess, which now has percutaneous drainage cath Follow creatinine - renal following Monitor progress Nydia Fowler MD Jul 29, 2017 10:22
[2017-07-29] MEDS: ACETAMINOPHEN/HYDROcodone 325 MG/5 MG TAB PO PRN (11:25)
--- NOTE | 2017-07-29 14:56 | HHI.FPPN ---
Subjective Remarks No Acute events overnight. Today on rounds patient states that he has a headache , but otherwise feels better. Nursing staff notes that his systolic blood pressure is much lower than it has been at 109. Patient denies chest pain, shortness of breath, vision changes, nausea or vomiting. States his breathing feels better as well as his shoulder pain. (Javy Hernandez MD R1) Objective Vitals Vital Signs Date Time Temp Pulse Resp B/P (MAP) Pulse Ox O2 Delivery O2 Flow Rate FiO2 07/29/17 12:33 119/69 (86) 07/29/17 11:52 97.8 74 20 109/56 (73) 97 07/29/17 07:43 97.4 72 20 179/74 (109) 100 07/29/17 06:14 98.2 77 18 143/70 (94) 98 07/29/17 01:57 98.0 81 18 136/61 (86) 98 07/28/17 20:50 97.0 73 18 136/63 (87) 99 07/28/17 16:00 97.8 72 18 124/58 (80) 98 I/O 07/28/17 07/28/17 07/28/17 07/29/17 07/29/17 07/29/17 07:00 15:00 23:00 07:00 15:00 23:00 Intake Total 400 ml 396 ml 829 ml 641 ml Output Total 2200 ml 2600 ml Balance -1800 ml 396 ml -1771 ml 641 ml Intake Oral 400 ml IV Total 396 ml 829 ml 641 ml Output Urine Total 2200 ml 2600 ml # Bowel Movements 0 2 1 (Javy Hernandez MD R1) Result Diagram: 07/29/17 0655 07/29/17 0655 Objective Remarks GENERAL: Patient sitting upright in chair comfortably in no acute distress. SKIN: . Cool and dry. HEAD: Atraumatic. Normocephalic. EYES: Extraocular motions intact. No scleral icterus. No injection or drainage. ENT: Nose without bleeding, purulent drainage or septal hematoma. Airway patent. NECK: Trachea midline. No JVD or lymphadenopathy. Supple, nontender, no meningeal signs. CARDIOVASCULAR: Regular rate and rhythm without murmurs, gallops, or rubs. RESPIRATORY: Good air movement BL. No wheezes or crackles appreciated GASTROINTESTINAL: Abdomen soft, non-tender, non-distended. Supra pubic catheter in place MUSCULOSKELETAL: Extremities without clubbing, cyanosis, or edema. No joint tenderness, effusion, or edema noted. No calf tenderness. Bandage overlying drain site was removed, revealing a well healing closed drain site. No bleeding , discharge from the site. No local erythema. NEUROLOGICAL: Cranial nerves II through XII grossly intact. Somewhat slurred speech/difficult to understand but unchanged from previous exams. (Javy Hernandez MD R1) A/P Assessment and Plan Patient is 57-year-old M with PMHx BPH and s/p prostatectomy (on 05/2017) presented to the ED with 2 wks of progressive worsening left side pain and weakness associated with GAINES. Urologist Dr. Patel, completed the surgery. Pt found to have Left apical lung mass with supraclavicular extension on imaging and focal embolic in in brain MRI. Pt treated for MRSA bacteremia. ALEX results positive for small mitral valve vegetation, likely resulting in the septic emboli to the brain. Pt had IR Aspiration of apical lung mass on 07/24 with cultures growing MRSA. Last positive blood cultures on 07/19, blood cultures on negative. Course complicated by acute rise in creatinine, of unsure etiology , followed by nephrology Discharge Planning Patient will need discharge on IV antibiotics, to facility (Javy Hernandez MD R1) Attending Attestation Patient seen and examined, discussed with resident team. I agree with assessment and management as documented and discussed with me. Appreciate nephrology, ID. 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 (Marilyn Chiu MD) Problem List: (1) Bacteremia due to Gram-positive bacteria ICD Codes: R78.81 - Bacteremia Plan: Blood cultures on admission (07/16): Positive for MRSA. Repeat cultures on 07/19 continued to grow MRSA Repeat cultures 07/21: NG 5 days Repeat cultures 07/23: NG x 4 days Urine Cx 07/16: Negative Repeat Ucx 07/23: Negative History of rectal temp of 102.5, and ESR of 140 on admission and CRP 37 now afebrile 5.9 cm abscess with suspected pneumonia surrounding IR aspiration cultures from 07/23 growing MRSA, tentative to clindamycin, daptomycin, levofloxacin, linezolid, Bactrim, vanc -Infectious disease consulted and Pulm Consulted, appreciate recommendations; Received vancomycin from 07/16 - 07/21 Switched to daptomycin on 07/22 by ID Received Zosyn from 07/16-07/20 Started Linezolid on 07/25 by ID high-grade with embolic brain lesions, likely underlying endocarditis in view of ALEX Embolic stroke with left-sided hemiplegia -Echo negative for endocarditis ALEX results: Mitral valve was structurally normal, but there was evidence of a small mobile mitral valve vegetation. Borderline normal left ventricular systolic function. Trace regurgitation of mitral and tricuspid valve. Trace pulmonary insufficiency Will discuss with infectious disease and nephrology if patient is candidate to receive IV antibiotics at [facility] facility as he rehabs from his stroke. (2) Endocarditis ICD Codes: I38 - Endocarditis, valve unspecified Plan: see plan above for bacteremia (3) OLLIE (acute kidney injury) ICD Codes: N17.9 - Acute kidney failure, unspecified Plan: Elevated creatinine appreciated on 07/21, had been stable at 2.3 now improved to 2.06 BUN WNL No known history of CKD, hx of BPH and prostatectomy in May 2017, suprapubic catheter placement with inability to void and subsequently capped and urethral catheter placed ATN via medication (IV Vanc) or sepsis vs. Post-obstructive uropathy vs. AIN -renal u/s: kidneys echogenic, medical renal disease likely -Nephrology consultation, appreciate recommendations -Elevated urine eosinophils at 0-2; possible emboli to kidneys versus AIN Discontinuing IV fluids on 07/29 as patient is tolerating by mouth feeds (4) Lung mass ICD Codes: R91.8 - Other nonspecific abnormal finding of lung field Status: Acute Plan: Likely abscess related to MRSA bacteremia, less likely neoplasm -Pulm and ID consulted, recommendation appreciated - IR abscess culture and continue drainage on 07/23 07/23: Cultures growing MRSA - sensitive to Daptomycin, Linezolid -CT chest 07/26 showed smaller abscess, no residual fluid or air noted - drain removed on 07/[address] 07/16/17: Complex loculated 5.9 cm fluid attenuation area at the left lung apex most characteristic of an abscess stanchion into the extrathoracic soft tissues superiorly and extending supraclavicular with locules of air present in the supraclavicular region and within the chest lesion. There is a suspected surrounding pneumonia upper left lung. Cannot exclude necrotic neoplasm. This would be amenable to CT guided aspiration. Mildly enlarged mediastinal and left hilar lymph nodes. Trace left pleural effusion. CRX 07/16: 5cm masslike opacity at the left apex -CXR (07/19): Stable from previous imaging CXR (07/21): Persistent complete opacification of left upper lobe and progressive volume loss with increased parenchymal density within the remainder of the left lower lobe CXR (07/23): No pneumothorax, decreasing density in the left apex (5) HTN (hypertension) ICD Codes: I10 - Essential (primary) hypertension Status: Chronic Plan: Blood pressure has been more well controlled over the last several days, occasional blood pressure as high as 170 but majority of blood pressures are normotensive No reported history of hypertension Pressure this morning was 109/56, that time patient was experiencing a headache Repeat blood pressure was 119/69, headache and resolved at that time On chart review, blood pressures have tended to drop following morning doses of blood pressure medications Will continue metoprolol tartrate in the morning and at night, will give amlodipine at noon to avoid symptomatic drops in blood pressure Continue metoprolol tartrate 50 mg twice a day Continue amlodipine to 10 mg daily per nephrology recommendations Continue hydralazine as needed for systolic blood pressures >180, diastolic blood pressures >100 (6) Focal infarction of brain ICD Codes: I63.9 - Cerebral infarction, unspecified Plan: Brain MRI with findings consistent with small focal infarcts, likely embolic in the right occipital lobe and right parietal high convexities near the vertex. Based on patient history, likely have been present for 2 weeks+ -Head CT within normal limits -Neck MRA normal -PT and OT consulted -Continue statin -Monitor vitals, keep BP controlled (7) Left-sided weakness ICD Codes: R53.1 - Weakness Status: Acute Plan: L sided weakness/severe pain, worse at L shoulder Septic arthritis versus mass effect -neuro checks Q4h -Out of bed with assistance -PT to evaluate, recommendations: Continue physical therapy at rehabilitation and OT therapy. -Will submit OT referral for evaluation Imaging: -MRI lumbar spine: no osteomyelitis, spinal canal stenosis at L3-L5, no significant change from prior study -MRI thoracic spine: multilevel disc spurs at T3-4 and T5-T6 and T9-10, no cord compression, no significant change from prior study -MRI brain: Small focal infarcts likely embolic in the right occipital lobe and right parietal high convexities near the vertex. - Head MRA normal - Echo: EF of 50%. Trace tricuspid valve regurgitation. Otherwise normal echo. - ALEX: small mitral valve vegetation (8) Nutrition, metabolism, and development symptoms ICD Codes: R63.8 - Other symptoms and signs concerning food and fluid intake Plan: Fluids: Discontinued IV fluids on 07/29 Electrolytes: WNL, replete as needed. Nutrition: regular diet DVT ppx: lovenox (increasing from 30 mg 40 mg per pharmacy recommendation) (Javy Hernandez MD R1) Problem Qualifiers (1) HTN (hypertension): Qualified Codes: I10 - Essential (primary) hypertension Javy Hernandez MD R1 Jul 29, 2017 14:56 Marilyn Chiu MD Jul 29, 2017 16:47
--- NOTE | 2017-07-29 15:47 | HHI.NPPN ---
Subjective Renal Failure: Acute History of Present Illness Patient is 57-year-old with PMHx BPH and s/p prostatectomy (on 05/2017) presented to the ED with 2 wks of progressive worsening left side pain and weakness associated with GAINES. Pt follows with urologist Dr. Patel, who completed the surgery. Per records patient had suprapubic catheter placed in May. After prostatectomy pt was unable to void and received 2nd (07/01/2017 ) surgery for placement of urethral catheter. At that time supra pubic catheter was capped. Over the last couple of days there is a significant rise in creatinine at 2.71 today from 0.97 on admission. Has indwelling urinary catheter that is draining urine. Being treated for MRSA sepsis, high grade with embolic brain lesions, with confirmed mitral valve endocarditis persistently positive blood clx. Vancomycin discontinued and on daptomycin. Additional Remarks OOB in chair. Patient denies any SOB minimal edema noted. Indwelling catheter with good UOP (Samantha Urbano) Review of Systems Respiratory Respiratory Remarks Denies SOB (Samantha Urbano) Cardiovascular Cardiac Remarks Denies CP (Samantha Urbano) Gastrointestinal GI Remarks denies any Abdominal pain (Samantha Urbano) Genitourinary Remarks Denies dysuria (Samantha Urbano) Objective Data Data 07/29/17 07/30/17 19:00 07:00 Intake Total 641 ml Balance 641 ml IV Total 641 ml Vital Signs Date Time Temp Pulse Resp B/P (MAP) Pulse Ox O2 Delivery O2 Flow Rate FiO2 07/29/17 12:33 119/69 (86) 07/29/17 11:52 97.8 74 20 109/56 (73) 97 07/29/17 07:43 97.4 72 20 179/74 (109) 100 07/29/17 06:14 98.2 77 18 143/70 (94) 98 07/29/17 01:57 98.0 81 18 136/61 (86) 98 07/28/17 20:50 97.0 73 18 136/63 (87) 99 07/28/17 16:00 97.8 72 18 124/58 (80) 98 (Samantha Urbano) -: 07/29/17 0607/29/17 0655 Physical Exam General Appearance: Obese (Samantha Urbano) Eyes Eye Exam: Pupils Equal (Samantha UrbanoP) Throat Throat Exam: Oral Mucosa [place] & Moist (Samantha UrbanoP) Pulmonary Resp Exam: Clear Bilaterally, Breath Sounds Equal, No Distress (Samantha UrbanoP) Cardiology CV Exam: Regular, Normal Sinus Rhythm (Samantha UrbanoP) Gastrointestinal/Abdomen GI Exam: Soft, Bowel Sounds Present (Samantha UrbanoP) Genitourinary Exam: Flank Non-Tender (Samantha UrbanoP) Integumentary Skin Exam: Clear, Warm (Samantha UrbanoP) Extremeties Extremities Exam: Trace Edema (Samantha UrbanoP) Neurologic Neuro Exam: Alert, Awake (Samantha UrbanoP) Psychiatric Psych Exam: Appropriate Responses (Samantha Urbano) Assessment/Plan Problem List: (1) OLLIE (acute kidney injury) ICD Codes: N17.9 - Acute kidney failure, unspecified Plan: OLLIE with possibly ATN from sepsis, complicated UTI not confirmed and endocarditis. Other possibility is Vanco. toxicity and also to rule out Acute Interstitial Nephritis. No previous history of Kidney disease. Suprapubic cath capped. Indwelling catheter with good UOP Renal US: Kidneys are echogenic which can be seen with medical renal disease, Echogenic lesion right mid kidney likely represents angiomyolipoma versus less likely calculus and Bilateral renal cysts. Creatinine stable at 2.06 Plan IVF discontinued Conitinue to monitor I+O and labs Avoid nephrotoxins. Continue to monitor renal function Urine for Eosinophils positive. On Daptomycin (2) HTN (hypertension) ICD Codes: I10 - Essential (primary) hypertension Status: Chronic Plan: Continue Amlodipine and metoprolol (Samantha UrbanoP) Problem List: (1) OLLIE (acute kidney injury) ICD Codes: N17.9 - Acute kidney failure, unspecified Plan: OLLIE with possibly ATN from sepsis, complicated UTI not confirmed and endocarditis. Other possibility is Vanco. toxicity and also to rule out Acute Interstitial Nephritis. No previous history of Kidney disease. Suprapubic cath capped. Indwelling catheter with good UOP Renal US: Kidneys are echogenic which can be seen with medical renal disease, Echogenic lesion right mid kidney likely represents angiomyolipoma versus less likely calculus and Bilateral renal cysts. Creatinine stable at 2.06 Plan IVF discontinued Conitinue to monitor I+O and labs Avoid nephrotoxins. Continue to monitor renal function Urine for Eosinophils positive, possible Acute interstitial Nephritis. On Daptomycin, continue same. Patient seen and examined, agree with above. (2) HTN (hypertension) ICD Codes: I10 - Essential (primary) hypertension Status: Chronic Plan: Continue Amlodipine and metoprolol (Dewey Marte MD) Problem Qualifiers (1) HTN (hypertension): Qualified Codes: I10 - Essential (primary) hypertension Samantha Urbano Jul 29, 2017 15:47 Dewey Marte MD Jul 29, 2017 16:07
[2017-07-29] MEDS: ATORVASTATIN 40 MG TAB PO SCH (21:30)
[2017-07-30] VITALS (7 sets, daily range): BP systolic 114–148; BP diastolic 59–73; PULSE 69–78; RESP 16–20; TEMP 97.2–98.2; O2SAT 98–100
[2017-07-30] MEDS: ACETAMINOPHEN/HYDROcodone 325 MG/5 MG TAB PO PRN ×2 (03:59→10:58)
[2017-07-30 06:57] LABS: AUTOMATED NEUTROPHIL # 4.5 TH/MM3 (1.8-7.7); BASOPHIL # 0.1 TH/MM3 (0-0.2); BASOPHIL % 1.4 % (0.0-2.0); EOSINOPHIL # 0.3 TH/MM3 (0-0.4); EOSINOPHIL % 4.5 % (0.0-4.0); HEMATOCRIT 24.1 % (39.0-51.0); HEMOGLOBIN 7.8 GM/DL (13.0-17.0); LYMPH % 29.5 % (9.0-44.0); LYMPHOCYTE # 2.3 TH/MM3 (1.0-4.8); MEAN CELL VOLUME 68.2 FL (80.0-100.0); MEAN CORPUSCULAR HEMOGLOBIN 22.1 PG (27.0-34.0); MEAN CORPUSCULAR HGB CONC 32.4 % (32.0-36.0); MEAN PLATELET VOLUME 7.6 FL (7.0-11.0); MONO % 7.1 % (0.0-8.0); MONOCYTE # 0.6 TH/MM3 (0-0.9); NEUT % 57.5 % (16.0-70.0); PLATELET COUNT 389 TH/MM3 (150-450); RED BLOOD COUNT 3.52 MIL/MM3 (4.50-5.90); RED CELL DISTRIBUTION WIDTH 24.2 % (11.6-17.2); WHITE BLOOD COUNT 7.8 TH/MM3 (4.0-11.0)
[2017-07-30 07:25] LABS: ALBUMIN 2.1 GM/DL (3.4-5.0); AST (GOT) 51 U/L (15-37); BICARBONATE 23.3 MEQ/L (21.0-32.0); BLOOD UREA NITROGEN 18 MG/DL (7-18); CALCIUM 9.3 MG/DL (8.5-10.1); CHLORIDE 105 MEQ/L (98-107); CREATININE 2.06 MG/DL (0.60-1.30); GLOMERULAR FILTRATION RATE 40 ML/MIN (>89); GLUCOSE,RANDOM 82 MG/DL (74-106); SODIUM (NA) 136 MEQ/L (136-145)
[2017-07-30 07:26] LABS: ALT (GPT) 67 U/L (12-78)
[2017-07-30 07:28] LABS: ALKALINE PHOSPHATASE 80 U/L (45-117); TOTAL BILIRUBIN ADULT 0.4 MG/DL (0.2-1.0); TOTAL PROTEIN 8.8 GM/DL (6.4-8.2)
[2017-07-30] MEDS: POTASSIUM CHLORIDE 10 MEQ CONTROLLED RELEASE TAB PO SCH ×2 (08:00→20:52)
[2017-07-30] MEDS: METOPROLOL TARTRATE 50 MG TAB PO SCH ×2 (08:00→20:52)
[2017-07-30] MEDS: LINEZOLID 600 MG TAB PO SCH ×2 (08:00→20:52)
[2017-07-30] MEDS: SODIUM CHLORIDE 0.9% FLUSH 10 ML FLUSH IV FLUSH SCH ×2 (08:01→20:52)
[2017-07-30] MEDS: ENOXAPARIN SODIUM 40 MG/0.4 ML SYRINGE SQ SCH (08:01)
--- NOTE | 2017-07-30 08:33 | HHI.PR ---
Subjective Remarks alert [employer] Objective Vital Signs Date Time Temp Pulse Resp B/P (MAP) Pulse Ox O2 Delivery O2 Flow Rate FiO2 07/30/17 07:55 97.5 74 20 147/73 (97) 100 07/30/17 03:59 98.2 69 17 148/65 (92) 98 07/30/17 00:00 98.1 71 18 122/69 (86) 98 07/29/17 21:32 97.4 71 16 119/71 (87) 100 07/29/17 15:56 97.2 72 20 115/60 (78) 99 07/29/17 12:33 119/69 (86) 07/29/17 11:52 97.8 74 20 109/56 (73) 97 I/O 07/29/17 07/29/17 07/29/17 07/30/17 07/30/17 07/30/17 07:00 15:00 23:00 07:00 15:00 23:00 Intake Total 829 ml 641 ml 720 ml Output Total 2600 ml 1350 ml 200 ml Balance -1771 ml 641 ml -630 ml -200 ml Intake Oral 720 ml IV Total 829 ml 641 ml Output Urine Total 2600 ml 1350 ml 200 ml # Bowel Movements 1 1 0 Result Diagram: 07/30/17 0610 07/30/17 0610 Objective Remarks GENERAL: SKIN: Warm and dry. HEAD: Atraumatic. Normocephalic. EYES: Pupils equal and round. No scleral icterus. No injection or drainage. ENT: No nasal bleeding or discharge. Mucous membranes pink and moist. NECK: Trachea midline. No JVD. CARDIOVASCULAR: Regular rate and rhythm. RESPIRATORY: No accessory muscle use. Clear to auscultation. Breath sounds equal bilaterally. GASTROINTESTINAL: Abdomen soft, non-tender, nondistended. Hepatic and splenic margins not palpable. MUSCULOSKELETAL: Extremities without clubbing, cyanosis, or edema. No obvious deformities. NEUROLOGICAL: Awake and alert. No obvious cranial nerve deficits. Motor grossly within normal limits. Five out of 5 muscle strength in the arms and legs. Normal speech. PSYCHIATRIC: Appropriate mood and affect; insight and judgment normal. Assessment and Plan Assessment and Plan left lung abscess endocarditis embolic stroke plan o2 antibx increase activity F/U Drew Valdivia MD Jul 30, 2017 08:33
--- NOTE | 2017-07-30 09:07 | HHI.FPPN ---
Subjective Remarks Patient seen and examined bedside this morning. Patient denies any recurrent pain. Patient is eating and drinking without difficulty. Patient is urinating and having bowel movements without difficulty. He denies any chest pain/ restless rest/dizziness. No acute events overnight. (Evangelina Jones MD R2) Objective Vitals Vital Signs Date Time Temp Pulse Resp B/P (MAP) Pulse Ox O2 Delivery O2 Flow Rate FiO2 07/30/17 07:55 97.5 74 20 147/73 (97) 100 07/30/17 03:59 98.2 69 17 148/65 (92) 98 07/30/17 00:00 98.1 71 18 122/69 (86) 98 07/29/17 21:32 97.4 71 16 119/71 (87) 100 07/29/17 15:56 97.2 72 20 115/60 (78) 99 07/29/17 12:33 119/69 (86) 07/29/17 11:52 97.8 74 20 109/56 (73) 97 I/O 07/29/17 07/29/17 07/29/17 07/30/17 07/30/17 07/30/17 06:59 14:59 22:59 06:59 14:59 22:59 Intake Total 829 ml 641 ml 720 ml Output Total 2600 ml 1350 ml 200 ml Balance -1771 ml 641 ml -630 ml -200 ml Intake Oral 720 ml IV Total 829 ml 641 ml Output Urine Total 2600 ml 1350 ml 200 ml # Bowel Movements 1 1 0 (Evangelina Jones MD R2) Result Diagram: 07/30/17 0610 07/30/17 0610 Objective Remarks GENERAL: Patient sitting upright in chair comfortably in no acute distress. SKIN: . Cool and dry. HEAD: Atraumatic. Normocephalic. EYES: Extraocular motions intact. No scleral icterus. No injection or drainage. ENT: Nose without bleeding, purulent drainage or septal hematoma. Airway patent. NECK: Trachea midline. No JVD or lymphadenopathy. Supple, nontender, no meningeal signs. CARDIOVASCULAR: Regular rate and rhythm without murmurs, gallops, or rubs. RESPIRATORY: Good air movement BL. No wheezes or crackles appreciated GASTROINTESTINAL: Abdomen soft, non-tender, non-distended. Supra pubic catheter in place MUSCULOSKELETAL: Extremities without clubbing, cyanosis, or edema. No joint tenderness, effusion, or edema noted. No calf tenderness. Bandage overlying drain site was removed, revealing a well healing closed drain site. No bleeding , discharge from the site. No local erythema. NEUROLOGICAL: Cranial nerves II through XII grossly intact. Somewhat slurred speech/difficult to understand but unchanged from previous exams. (Evangelina Jones MD R2) A/P Assessment and Plan Patient is 57-year-old M with PMHx BPH and s/p prostatectomy (on 05/2017) presented to the ED with 2 wks of progressive worsening left side pain and weakness associated with GAINES. Urologist Dr. Patel, completed the surgery. Pt found to have Left apical lung mass with supraclavicular extension on imaging and focal embolic in in brain MRI. Pt treated for MRSA bacteremia. ALEX results positive for small mitral valve vegetation, likely resulting in the septic emboli to the brain. Pt had IR Aspiration of apical lung mass on 07/24 with cultures growing MRSA. Last positive blood cultures on 07/19, blood cultures on negative. Course complicated by acute rise in creatinine, of unsure etiology , followed by nephrology Discharge Planning Patient will need discharge on IV antibiotics, to facility (Evangelina Jones MD R2) Attending Attestation patient seen and examined, discussed with resident team. I agree with assessment and management as documented and discussed with me. Appreciate ID, nephrology, case management in the discharge planning for this patient. (Marilyn Chiu MD) Problem List: (1) Bacteremia due to Gram-positive bacteria ICD Codes: R78.81 - Bacteremia Plan: Blood cultures on admission (07/16): Positive for MRSA. Repeat cultures on 07/19 continued to grow MRSA Repeat cultures 07/21: NG 5 days Repeat cultures 07/23: NG x 4 days Urine Cx 07/16: Negative Repeat Ucx 07/23: Negative History of rectal temp of 102.5, and ESR of 140 on admission and CRP 37 now afebrile 5.9 cm abscess with suspected pneumonia surrounding IR aspiration cultures from 07/23 growing MRSA, tentative to clindamycin, daptomycin, levofloxacin, linezolid, Bactrim, vanc -Infectious disease consulted and Pulm Consulted, appreciate recommendations; Received vancomycin from 07/16 - 07/21 Switched to daptomycin on 07/22 by ID Received Zosyn from 07/16-07/20 Started Linezolid on 07/25 by ID high-grade with embolic brain lesions, likely underlying endocarditis in view of ALEX Embolic stroke with left-sided hemiplegia -Echo negative for endocarditis ALEX results: Mitral valve was structurally normal, but there was evidence of a small mobile mitral valve vegetation. Borderline normal left ventricular systolic function. Trace regurgitation of mitral and tricuspid valve. Trace pulmonary insufficiency Will discuss with infectious disease and nephrology if patient is candidate to receive IV antibiotics at assisted facility as he rehabs from his stroke. (2) Endocarditis ICD Codes: I38 - Endocarditis, valve unspecified Plan: see plan above for bacteremia (3) OLLIE (acute kidney injury) ICD Codes: N17.9 - Acute kidney failure, unspecified Plan: Elevated creatinine appreciated on 07/21, had been stable at 2.3 now improved to 2.06 BUN WNL No known history of CKD, hx of BPH and prostatectomy in May 2017, suprapubic catheter placement with inability to void and subsequently capped and urethral catheter placed ATN via medication (IV Vanc) or sepsis vs. Post-obstructive uropathy vs. AIN -renal u/s: kidneys echogenic, medical renal disease likely -Nephrology consultation, appreciate recommendations -Elevated urine eosinophils at 0-2; possible emboli to kidneys versus AIN Discontinuing IV fluids on 07/29 as patient is tolerating by mouth feeds (4) Lung mass ICD Codes: R91.8 - Other nonspecific abnormal finding of lung field Status: Acute Plan: Likely abscess related to MRSA bacteremia, less likely neoplasm -Pulm and ID consulted, recommendation appreciated - IR abscess culture and continue drainage on 07/23 07/23: Cultures growing MRSA - sensitive to Daptomycin, Linezolid -CT chest 07/26 showed smaller abscess, no residual fluid or air noted - drain removed on 07/[address] 07/16/17: Complex loculated 5.9 cm fluid attenuation area at the left lung apex most characteristic of an abscess stanchion into the extrathoracic soft tissues superiorly and extending supraclavicular with locules of air present in the supraclavicular region and within the chest lesion. There is a suspected surrounding pneumonia upper left lung. Cannot exclude necrotic neoplasm. This would be amenable to CT guided aspiration. Mildly enlarged mediastinal and left hilar lymph nodes. Trace left pleural effusion. CRX 07/16: 5cm masslike opacity at the left apex -CXR (07/19): Stable from previous imaging CXR (07/21): Persistent complete opacification of left upper lobe and progressive volume loss with increased parenchymal density within the remainder of the left lower lobe CXR (07/23): No pneumothorax, decreasing density in the left apex (5) HTN (hypertension) ICD Codes: I10 - Essential (primary) hypertension Status: Chronic Plan: Blood pressure has been more well controlled over the last several days No reported history of hypertension On chart review, history of borderline low blood pressures and headaches over the hospitalization Will continue metoprolol tartrate in the morning and at night, continue amlodipine at noon to avoid symptomatic drops in blood pressure Continue metoprolol tartrate 50 mg twice a day Continue amlodipine to 10 mg daily per nephrology recommendations Continue hydralazine as needed for systolic blood pressures >180, diastolic blood pressures >100 (6) Focal infarction of brain ICD Codes: I63.9 - Cerebral infarction, unspecified Status: Resolved Plan: Brain MRI with findings consistent with small focal infarcts, likely embolic in the right occipital lobe and right parietal high convexities near the vertex. Based on patient history, likely have been present for 2 weeks+ -Head CT within normal limits -Neck MRA normal -PT and OT consulted -Continue statin -Monitor vitals, keep BP controlled (7) Left-sided weakness ICD Codes: R53.1 - Weakness Status: Resolved Plan: L sided weakness/severe pain, worse at L shoulder Septic arthritis versus mass effect -neuro checks Q4h -Out of bed with assistance -PT to evaluate, recommendations: Continue physical therapy at rehabilitation and OT therapy. -Will submit OT referral for evaluation Imaging: -MRI lumbar spine: no osteomyelitis, spinal canal stenosis at L3-L5, no significant change from prior study -MRI thoracic spine: multilevel disc spurs at T3-4 and T5-T6 and T9-10, no cord compression, no significant change from prior study -MRI brain: Small focal infarcts likely embolic in the right occipital lobe and right parietal high convexities near the vertex. - Head MRA normal - Echo: EF of 50%. Trace tricuspid valve regurgitation. Otherwise normal echo. - ALEX: small mitral valve vegetation (8) Nutrition, metabolism, and development symptoms ICD Codes: R63.8 - Other symptoms and signs concerning food and fluid intake Plan: Fluids: Discontinued IV fluids on 07/29, encourage by mouth fluid intake Electrolytes: WNL, replete as needed. Nutrition: regular diet DVT ppx: lovenox (increasing from 30 mg 40 mg per pharmacy recommendation) (Evangelina Jones MD R2) Problem Qualifiers (1) HTN (hypertension): Qualified Codes: I10 - Essential (primary) hypertension Evangelina Jones MD R2 Jul 30, 2017 09:07 Marilyn Chiu MD Jul 30, 2017 20:49
--- NOTE | 2017-07-30 14:09 | HHI.NPPN ---
Subjective Renal Failure: Acute History of Present Illness Patient is 57-year-old with PMHx BPH and s/p prostatectomy (on 05/2017) presented to the ED with 2 wks of progressive worsening left side pain and weakness associated with GAINES. Pt follows with urologist Dr. Patel, who completed the surgery. Per records patient had suprapubic catheter placed in May. After prostatectomy pt was unable to void and received 2nd (07/01/2017 ) surgery for placement of urethral catheter. At that time supra pubic catheter was capped. Over the last couple of days there is a significant rise in creatinine at 2.71 today from 0.97 on admission. Has indwelling urinary catheter that is draining urine. Being treated for MRSA sepsis, high grade with embolic brain lesions, with confirmed mitral valve endocarditis persistently positive blood clx. Vancomycin discontinued and on daptomycin. Additional Remarks OOB in chair. Patient denies any SOB. Indwelling catheter with good UOP (Samantha Urbano) Review of Systems Respiratory Respiratory Remarks Denies SOB (Samantha Urbano) Cardiovascular Cardiac Remarks Denies CP (Samantha Urbano) Gastrointestinal GI Remarks denies any Abdominal pain (Samantha Urbano) Genitourinary Remarks Denies dysuria (Samantha Urbano) Objective Data Data 07/30/17 07/31/17 19:00 07:00 Output Total 200 ml Balance -200 ml Output Urine Total 200 ml # Bowel Movements 0 Vital Signs Date Time Temp Pulse Resp B/P (MAP) Pulse Ox O2 Delivery O2 Flow Rate FiO2 07/30/17 11:33 97.3 74 20 141/73 (95) 99 07/30/17 07:55 97.5 74 20 147/73 (97) 100 07/30/17 03:59 98.2 69 17 148/65 (92) 98 07/30/17 00:00 98.1 71 18 122/69 (86) 98 07/29/17 21:32 97.4 71 16 119/71 (87) 100 07/29/17 15:56 97.2 72 20 115/60 (78) 99 (Samantha Urbano) -: 07/30/17 0610 07/30/17 0610 Imaging Last Impressions Chest CT 07/26/17 0600 Signed Impressions: Service Date/Time: Wednesday, July 26, 2017 09:11 - CONCLUSION: Interval placement of percutaneous drainage catheter. The abscess is smaller and there is no residual fluid or air now noted. Residual infiltrate remains in the left upper lobe. Akash Calvert MD Chest X-Ray 07/24/17 0000 Signed Impressions: Service Date/Time: Monday, July 24, 2017 08:40 - CONCLUSION: No pneumothorax. Decreasing density left apex. Tahir Miramontes MD Renal Ultrasound 07/23/17 0000 Signed Impressions: Service Date/Time: Sunday, July 23, 2017 10:36 - CONCLUSION: 1. Kidneys are echogenic which can be seen with medical renal disease. 2. Echogenic lesion right mid kidney likely represents angiomyolipoma versus less likely calculus. 3. Bilateral renal cysts. Tahir Miramontes MD Abscess Drainage CT 07/23/17 0000 Signed Impressions: Service Date/Time: Sunday, July 23, 2017 16:48 - CONCLUSION: Uncomplicated CT guided drainage of the empyema in the left apex. Tahir Miramontes MD Shoulder X-Ray 07/20/17 0000 Signed Impressions: Service Date/Time: Thursday, July 20, 2017 12:54 - CONCLUSION: No evidence of fracture. Cliff Lomeli MD Shoulder MRI 07/20/17 0000 Signed Impressions: Service Date/Time: Thursday, July 20, 2017 12:09 - CONCLUSION: 1. Abscess of the left lung apex again seen with anterior and posterior extension of abnormal enhancement and edema. There is extension of abscess anteriorly just inferior to the sternoclavicular joint. Elongated extension of abscess along the deep margin of the pectoralis muscle also noted. Extension of the edema and enhancement suggesting soft tissue infection in the region of the proximal coracobrachialis and biceps muscles. 2. No evidence of osteomyelitis. 3. Glenohumeral joint within normal limits. 4. Moderate acromioclavicular joint arthrosis. 5. Rotator cuff tendons are intact. Cliff Lomeli MD Abdomen X-Ray 07/19/17 0000 Signed Impressions: Service Date/Time: Wednesday, July 19, 2017 14:08 - CONCLUSION: Bowel distention as described above. There is no free air. Fredy Vega MD FACR Neck Magnetic Resonance Angiography 07/17/17 Signed Impressions: Service Date/Time: Monday, July 17, 2017 09:00 - CONCLUSION: 1. Normal carotid arteries. Tahir Miramontes MD Head Magnetic Resonance Angiography 07/17/17 Signed Impressions: Service Date/Time: Monday, July 17, 2017 09:00 - CONCLUSION: 1. No large vessel aneurysm or stenosis. 2. Normal variants as described above. Tahir Miramontes MD Thoracic Spine MRI 07/16/17 0000 Signed Impressions: Service Date/Time: Sunday, July 16, 2017 10:42 - CONCLUSION: 1. Multilevel disc spurs at T3-4, T5-T6 scan, most significantly at T9-10. Despite degenerative changes, there is no cord compromise at any thoracic level. No significant change from prior. 2. Possible loculated effusion in the left lung apex. Bonifacio Echeverria MD Lumbar Spine MRI 07/16/17 0000 Signed Impressions: Service Date/Time: Sunday, July 16, 2017 10:42 - CONCLUSION: 1. Stable CT scan of the lumbar spine compared to the prior examination of 07/29/2015. 2. No evidence to suggest discitis or osteomyelitis. 3. There continues to be spinal canal stenosis at L3-4 and L4-5 without significant change compared to the prior study. Fahad Garrido MD Head CT 07/16/17 Signed Impressions: Service Date/Time: Sunday, July 16, 2017 07:04 - CONCLUSION: Unremarkable study. K. Paul Lind MD Cervical Spine MRI 07/16/17 0000 Signed Impressions: Service Date/Time: Sunday, July 16, 2017 10:42 - CONCLUSION: 1. Stable overall appearance of the cervical spine compared to the prior examination of 07/28/2015. 2. Specifically, no evidence to suggest discitis or osteomyelitis. Fahad Garrido MD Brain MRI 07/16/17 0000 Signed Impressions: Service Date/Time: Sunday, July 16, 2017 10:42 - CONCLUSION: 1. 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 Vasquez Thayer MD Abdomen/Pelvis CT 07/16/17 0000 Signed Impressions: Service Date/Time: Sunday, July 16, 2017 12:49 - CONCLUSION: 1. Suprapubic catheter present presumably passing into bladder with thickened bladder wall. There is a Saxena catheter present with the balloon in the lower bladder or possibly within the prostatic region. Patient is reportedly status post prostatectomy. 2. Diffuse ileus. Stable renal cysts. 3. Mild inflammatory changes left lung base. Ryan Byrnes MD (Gellermann,Samantha M. GRAPHIC DESIGN PROFESSOR) Physical Exam General Appearance: Obese (Gellermann,Samantha M. GRAPHIC DESIGN PROFESSOR) Eyes Eye Exam: Pupils Equal (Gellermann,Samantha M. GRAPHIC DESIGN PROFESSOR) Throat Throat Exam: Oral Mucosa [place] & Moist (Gellermann,Samantha M. GRAPHIC DESIGN PROFESSOR) Pulmonary Resp Exam: Clear Bilaterally, Breath Sounds Equal, No Distress (Gellermann,Samantha M. GRAPHIC DESIGN PROFESSOR) Cardiology CV Exam: Regular, Normal Sinus Rhythm (Gellermann,Samantha M. GRAPHIC DESIGN PROFESSOR) Gastrointestinal/Abdomen GI Exam: Soft, Bowel Sounds Present (Gellermann,Samantha M. GRAPHIC DESIGN PROFESSOR) Genitourinary Exam: Flank Non-Tender (Gellermann,Samantha M. GRAPHIC DESIGN PROFESSOR) Integumentary Skin Exam: Clear, Warm (Gellermann,Samantha M. GRAPHIC DESIGN PROFESSOR) Extremeties Extremities Exam: Trace Edema (Gellermann,Samantha M. GRAPHIC DESIGN PROFESSOR) Neurologic Neuro Exam: Alert, Awake (Gellermann,Samantha M. GRAPHIC DESIGN PROFESSOR) Psychiatric Psych Exam: Appropriate Responses (Gellermann,Samantha M. GRAPHIC DESIGN PROFESSOR) Assessment/Plan Assessment Summary: Hypertension Problem List: (1) OLLIE (acute kidney injury) ICD Codes: N17.9 - Acute kidney failure, unspecified Plan: OLLIE with possibly ATN from sepsis, complicated UTI not confirmed and endocarditis. Other possibility is Vanco. toxicity and also to rule out Acute Interstitial Nephritis. No previous history of Kidney disease. Suprapubic cath capped. Indwelling catheter with good UOP Renal US: Kidneys are echogenic which can be seen with medical renal disease, Echogenic lesion right mid kidney likely represents angiomyolipoma versus less likely calculus and Bilateral renal cysts. Creatinine stable at 2.06 and potassium remains WNL Plan Continue to monitor I+O Avoid nephrotoxins. Continue to monitor renal function Urine for Eosinophils positive, possible Acute interstitial Nephritis. On Daptomycin, continue same. (2) HTN (hypertension) ICD Codes: I10 - Essential (primary) hypertension Status: Chronic Plan: Continue Amlodipine and metoprolol (Samantha Urbano) Problem List: (1) OLLIE (acute kidney injury) ICD Codes: N17.9 - Acute kidney failure, unspecified Plan: OLLIE with possibly ATN from sepsis, complicated UTI not confirmed and endocarditis. Other possibility is Vanco. toxicity and also to rule out Acute Interstitial Nephritis. No previous history of Kidney disease. Suprapubic cath capped. Indwelling catheter with good UOP Renal US: Kidneys are echogenic which can be seen with medical renal disease, Echogenic lesion right mid kidney likely represents angiomyolipoma versus less likely calculus and Bilateral renal cysts. Creatinine stable at 2.06 and potassium remains WNL Plan Continue to monitor I+O Avoid nephrotoxins. Continue to monitor renal function Urine for Eosinophils positive, possible Acute interstitial Nephritis. On Daptomycin, continue same. Patient seen and examined, agree with above. Creatinine is same, non oliguric. (2) HTN (hypertension) ICD Codes: I10 - Essential (primary) hypertension Status: Chronic Plan: Continue Amlodipine and metoprolol (Dewey Marte MD) Problem Qualifiers (1) HTN (hypertension): Qualified Codes: I10 - Essential (primary) hypertension Samantha Urbano Jul 30, 2017 14:09 Dewey Marte MD Jul 30, 2017 14:36
--- NOTE | 2017-07-30 15:59 | HHI.IDPN ---
Subjective Subjective Remarks ID COVERAGE Chart reviewed 57 year old diagnosed to have MRSA bacteremia and has MV IE Has loculated fluid collection in L apex, with some extension Notes reviewed D/W RN He is afebrile D/W Dr Hernandez ( resident) Reviewed nephrology notes Possibly with acute interstitial nephritis due to Vanco Creatinine is satbe No new (+) BC Good UO Creat slightly lower WBC down to normal Urine eos 0-2 Fluid C/S also with MRSA Last (+) BC 07/19 Not SOB Has bryan, good UO Accepted at [facility] has ok PICC Antibiotics Current Medications Cubicin Zyvox Medications (Trade) Dose Ordered Sig/Briseyda Route Start Time Stop Time Status Last Admin (NS Flush) 2 ml UNSCH PRN IV FLUSH 07/16/17 09:45 (NS Flush) 2 ml BID IV FLUSH 07/16/17 21:00 07/30/17 08:01 (Zofran Inj) 4 mg Q6H PRN IVP 07/16/17 09:45 (Milk Of Magnesia Liq) 30 ml Q12H PRN PO 07/16/17 09:45 (Senokot) 17.2 mg Q12H PRN PO 07/16/17 09:45 (Dulcolax Supp) 10 mg DAILY PRN RECTAL 07/16/17 09:45 (Lactulose Liq) 30 ml DAILY PRN PO 07/16/17 09:45 (Narcan Inj) 0.4 mg UNSCH PRN IV PUSH 07/16/17 19:00 (Lipitor) 40 mg HS PO 07/17/17 21:00 07/29/17 21:30 ([place] 5-325 Mg) 1 tab Q6H PRN PO 07/17/17 16:30 07/30/17 10:58 (KCl) 40 meq Q12HR PO 07/20/17 12:15 07/30/17 08:00 (Apresoline) 10 mg Q6HR PRN PO 07/21/17 13:00 07/25/17 00:49 Daptomycin 750 mg/ Sodium Chloride 100 ml @ 200 mls/hr Q48H IV 07/24/17 17:00 07/28/17 16:51 (Lopressor) 50 mg Q12HR PO 07/23/17 09:00 07/30/17 08:00 (Zyvox) 600 mg Q12HR PO 07/25/17 12:00 07/30/17 08:00 (Lovenox Inj) 40 mg Q24H SQ 07/30/17 08:00 07/30/17 08:01 (Norvasc) 10 mg DAILY PO 07/30/17 12:00 07/30/17 12:18 Current Medications Cubicin Zyvox Medications (Trade) Dose Ordered Sig/Briseyda Route Start Time Stop Time Status Last Admin (NS Flush) 2 ml UNSCH PRN IV FLUSH 07/16/17 09:45 (NS Flush) 2 ml BID IV FLUSH 07/16/17 21:00 07/27/17 21:19 (Zofran Inj) 4 mg Q6H PRN IVP 07/16/17 09:45 (Milk Of Magnesia Liq) 30 ml Q12H PRN PO 07/16/17 09:45 (Senokot) 17.2 mg Q12H PRN PO 07/16/17 09:45 (Dulcolax Supp) 10 mg DAILY PRN RECTAL 07/16/17 09:45 (Lactulose Liq) 30 ml DAILY PRN PO 07/16/17 09:45 (Narcan Inj) 0.4 mg UNSCH PRN IV PUSH 07/16/17 19:00 (Lipitor) 40 mg HS PO 07/17/17 21:00 07/28/17 21:10 ([place] 5-325 Mg) 1 tab Q6H PRN PO 07/17/17 16:30 07/25/17 00:50 (KCl) 40 meq Q12HR PO 07/20/17 12:15 07/29/17 08:20 (Apresoline) 10 mg Q6HR PRN PO 07/21/17 13:00 07/25/17 00:49 Daptomycin 750 mg/ Sodium Chloride 100 ml @ 200 mls/hr Q48H IV 07/24/17 17:00 07/28/17 16:51 (Lopressor) 50 mg Q12HR PO 07/23/17 09:00 07/29/17 08:20 (Norvasc) 10 mg DAILY PO 07/26/17 09:00 07/29/17 08:19 (Zyvox) 600 mg Q12HR PO 07/25/17 12:00 07/29/17 08:20 Sodium Chloride 1,000 ml @ 100 mls/hr Q10H IV 07/25/17 14:32 07/29/17 06:00 (Lovenox Inj) 30 mg Q24H SQ 07/29/17 10:00 07/29/17 08:19 Lines PIV Past Medical History BPH neuropathy Past Surgical History cervical spine fusion-- after a fall in 2002 lower spinal fusion 2 yrs ago prostatectomy, May 2017 Allergies: Coded Allergies: No Known Allergies (Verified Allergy, Unknown, 07/16/17) Objective . Vital Signs Date Time Temp Pulse Resp B/P (MAP) Pulse Ox O2 Delivery O2 Flow Rate FiO2 07/30/17 11:33 97.3 74 20 141/73 (95) 99 07/30/17 07:55 97.5 74 20 147/73 (97) 100 07/30/17 03:59 98.2 69 17 148/65 (92) 98 07/30/17 00:00 98.1 71 18 122/69 (86) 98 07/29/17 21:32 97.4 71 16 119/71 (87) 100 07/29/17 15:56 97.2 72 20 115/60 (78) 99 07/30/17 07/30/17 07/31/17 15:00 23:00 07:00 Output Total 200 ml Balance -200 ml Output Urine Total 200 ml # Bowel Movements 0 . Laboratory Tests Test 07/29/17 06:55 07/30/17 06:10 White Blood Count 8.9 TH/MM3 7.8 TH/MM3 Red Blood Count 3.38 MIL/MM3 3.52 MIL/MM3 Hemoglobin 7.5 GM/DL 7.8 GM/DL Hematocrit 22.9 % 24.1 % Mean Corpuscular Volume 67.6 FL 68.2 FL Mean Corpuscular Hemoglobin 22.2 PG 22.1 PG Mean Corpuscular Hemoglobin Concent 32.8 % 32.4 % Red Cell Distribution Width 23.6 % 24.2 % Platelet Count 403 TH/MM3 389 TH/MM3 Mean Platelet Volume 7.2 FL 7.6 FL Neutrophils (%) (Auto) 60.3 % 57.5 % Lymphocytes (%) (Auto) 27.3 % 29.5 % Monocytes (%) (Auto) 7.1 % 7.1 % Eosinophils (%) (Auto) 3.8 % 4.5 % Basophils (%) (Auto) 1.5 % 1.4 % Neutrophils # (Auto) 5.4 TH/MM3 4.5 TH/MM3 Lymphocytes # (Auto) 2.4 TH/MM3 2.3 TH/MM3 Monocytes # (Auto) 0.6 TH/MM3 0.6 TH/MM3 Eosinophils # (Auto) 0.3 TH/MM3 0.3 TH/MM3 Basophils # (Auto) 0.1 TH/MM3 0.1 TH/MM3 CBC Comment DIFF FINAL DIFF FINAL Differential Comment Laboratory Tests Test 07/29/17 06:55 07/30/17 06:10 Blood Urea Nitrogen 18 MG/DL 18 MG/DL Creatinine 2.06 MG/DL 2.06 MG/DL Random Glucose 80 MG/DL 82 MG/DL Calcium Level 8.7 MG/DL 9.3 MG/DL Sodium Level 138 MEQ/L 136 MEQ/L Potassium Level 3.9 MEQ/L 4.5 MEQ/L Chloride Level 109 MEQ/L 105 MEQ/L Carbon Dioxide Level 22.1 MEQ/L 23.3 MEQ/L Anion Gap 7 MEQ/L 8 MEQ/L Estimat Glomerular Filtration Rate 40 ML/MIN 40 ML/MIN Total Protein 8.8 GM/DL Albumin 2.1 GM/DL Alkaline Phosphatase 80 U/L Aspartate Amino Transf (AST/SGOT) 51 U/L Alanine Aminotransferase (ALT/SGPT) 67 U/L Total Bilirubin 0.4 MG/DL Imaging RADIOLOGY STUDIES/FILMS REVIEWED Chest CT 07/26/17 0600 Signed Impressions: Service Date/Time: Wednesday, July 26, 2017 09:11 - CONCLUSION: Interval placement of percutaneous drainage catheter. The abscess is smaller and there is no residual fluid or air now noted. Residual infiltrate remains in the left upper lobe. Akash Calvert MD Chest X-Ray 07/24/17 0000 Signed Impressions: Service Date/Time: Monday, July 24, 2017 08:40 - CONCLUSION: No pneumothorax. Decreasing density left apex. Tahir Miramontes MD Renal Ultrasound 07/23/17 0000 Signed Impressions: Service Date/Time: Sunday, July 23, 2017 10:36 - CONCLUSION: 1. Kidneys are echogenic which can be seen with medical renal disease. 2. Echogenic lesion right mid kidney likely represents angiomyolipoma versus less likely calculus. 3. Bilateral renal cysts. Tahir Miramontes MD Abscess Drainage CT 07/23/17 0000 Signed Impressions: Service Date/Time: Sunday, July 23, 2017 16:48 - CONCLUSION: Uncomplicated CT guided drainage of the empyema in the left apex. Tahir Miramontes MD Shoulder X-Ray 07/20/17 0000 Signed Impressions: Service Date/Time: Thursday, July 20, 2017 12:54 - CONCLUSION: No evidence of fracture. Cliff Lomeli MD Shoulder MRI 07/20/17 0000 Signed Impressions: Service Date/Time: Thursday, July 20, 2017 12:09 - CONCLUSION: 1. Abscess of the left lung apex again seen with anterior and posterior extension of abnormal enhancement and edema. There is extension of abscess anteriorly just inferior to the sternoclavicular joint. Elongated extension of abscess along the deep margin of the pectoralis muscle also noted. Extension of the edema and enhancement suggesting soft tissue infection in the region of the proximal coracobrachialis and biceps muscles. 2. No evidence of osteomyelitis. 3. Glenohumeral joint within normal limits. 4. Moderate acromioclavicular joint arthrosis. 5. Rotator cuff tendons are intact. Cliff Lomeli MD Abdomen X-Ray 07/19/17 0000 Signed Impressions: Service Date/Time: Wednesday, July 19, 2017 14:08 - CONCLUSION: Bowel distention as described above. There is no free air. Fredy Vega MD FACR Neck Magnetic Resonance Angiography 07/17/17 0000 Signed Impressions: Service Date/Time: Monday, July 17, 2017 09:00 - CONCLUSION: 1. Normal carotid arteries. Tahir Miramontes MD Head Magnetic Resonance Angiography 07/17/17 0000 Signed Impressions: Service Date/Time: Monday, July 17, 2017 09:00 - CONCLUSION: 1. No large vessel aneurysm or stenosis. 2. Normal variants as described above. Tahir Miramontes MD Thoracic Spine MRI 07/16/17 0000 Signed Impressions: Service Date/Time: Sunday, July 16, 2017 10:42 - CONCLUSION: 1. Multilevel disc spurs at T3-4, T5-T6 scan, most significantly at T9-10. Despite degenerative changes, there is no cord compromise at any thoracic level. No significant change from prior. 2. Possible loculated effusion in the left lung apex. Bonifacio Echeverria MD Lumbar Spine MRI 07/16/17 0000 Signed Impressions: Service Date/Time: Sunday, July 16, 2017 10:42 - CONCLUSION: 1. Stable CT scan of the lumbar spine compared to the prior examination of 07/29/2015. 2. No evidence to suggest discitis or osteomyelitis. 3. There continues to be spinal canal stenosis at L3-4 and L4-5 without significant change compared to the prior study. Fahad Garrido MD Head CT 07/16/17 0000 Signed Impressions: Service Date/Time: Sunday, July 16, 2017 07:04 - CONCLUSION: Unremarkable study. Sree Lind MD Cervical Spine MRI 07/16/17 0000 Signed Impressions: Service Date/Time: Sunday, July 16, 2017 10:42 - CONCLUSION: 1. Stable overall appearance of the cervical spine compared to the prior examination of 07/28/2015. 2. Specifically, no evidence to suggest discitis or osteomyelitis. Fahad Garrido MD Brain MRI 07/16/17 0000 Signed Impressions: Service Date/Time: Sunday, July 16, 2017 10:42 - CONCLUSION: 1. 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 Vasquez Thayer MD Abdomen/Pelvis CT 07/16/17 0000 Signed Impressions: Service Date/Time: Sunday, July 16, 2017 12:49 - CONCLUSION: 1. Suprapubic catheter present presumably passing into bladder with thickened bladder wall. There is a Bryan catheter present with the balloon in the lower bladder or possibly within the prostatic region. Patient is reportedly status post prostatectomy. 2. Diffuse ileus. Stable renal cysts. 3. Mild inflammatory changes left lung base. Ryan Byrnes MD Physical Exam GENERAL: up in chair, awakens easily from sleep, not in distress SKIN: Cool, moist, not diaphoretic. No rash HEENT: Pale conjunctiva, no petechia or hemorrhage, full EOM, dry oral mucosa NECK: Supple and not tender CARDIOVASCULAR: Regular rate and rhythm, no murmurs, or rubs. RESPIRATORY/CHEST: Clear to auscultation. Breath sounds equal bilaterally. No wheezes, rales, or rhonchi. GASTROINTESTINAL: Abdomen soft, obese, non-tender, nondistended. No guarding. Bowel sounds present. GENITOURINARY: SP cath is capped. Bryan in place, urine clear MUSCULOSKELETAL: Extremities without clubbing, cyanosis, + 1 edema. No calf tenderness. NEUROLOGICAL: Awake and alert. Non-focal PSYCHIATRIC: Cooperative LINE: No evidence of infection Assessment & Plan Remarks MRSA sepsis, high grade with embolic brain lesions, with confirmed mitral valve endocarditis - last (+) BC 07/19; 07/21 negative so far Complex loculated 5.9 cm fluid attenuation area at the left lung apex most characteristic of an abscess with extension into the extrathoracic soft tissues - empyema/abscess, has drainage cath - this could explain persistent (+) BC - drained, with improvement on last CT Suspected complex UTI sp prostatic surgery and SP cath - culture not confirmed infection Mitral valve endocarditis 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 - eos in urine 0-2 - creatinine slowly decreasing PLAN OK with PICC per nephrology Continue Cubicin - plan 6 weeks Rx for his IE - anticipated end date August 31 - follow CPK Continue Zyvox - at least 28 days for his empyema - anticipated end date Aug 21 - hopefully he can tolerate this - follow CBC weekly OK to go to [facility] once accepted D/W RN Spoke with FP resident Dr Hernandez Spoke with Nydia Pickens MD Jul 30, 2017 15:59
[2017-07-30] MEDS: DAPTOmycin INJ 750 MG in SODIUM CHLORIDE 0.9% INJ 100 ML IV SCH (16:22)
[2017-07-30] MEDS ORDERED: SODIUM CHLORIDE 0.9% FLUSH 10 ML FLUSH IV FLUSH PRN (17:45)
--- NOTE | 2017-07-30 17:55 | RADRPT ---
EXAM DATE/TIME: 07/30/2017 17:34 [facility] COMPARISON: CHEST EXPIRATION ONLY, July 24, 2017, 8:40. CT THORAX W/O CONTRAST, July 26, 2017, 9:11. JASE ST SINGLE AP, July 16, 2017, 6:15. INDICATIONS : PICC line placement. MEDICAL HISTORY : None. SURGICAL HISTORY : None. ENCOUNTER: Subsequent ACUITY: 1 week PAIN SCORE: 1/10 LOCATION: Bilateral chest FINDINGS: A right PICC line has been placed. The PICC line appears to be in good position. There is no pneumoth orax. The right lung is clear. Continues to be some probable changes in the left apex. The left lung base is clear. There no pleural effusions. Bony structures are stable. The heart size is stable. CONCLUSION: Right PICC line in place. No pneumothorax. Fahad Garrido MD on July 30, 2017 at 17:51 Board Certified Radiologist. This report was verified electronically.
[2017-07-30] MEDS: ATORVASTATIN 40 MG TAB PO SCH (20:53)
[2017-07-31 01:00] VITALS: BP 100/54; PULSE 68; RESP 20; TEMP 97.5; O2SAT 98
[2017-07-31 04:53] VITALS: BP 115/61; PULSE 65; RESP 20; TEMP 98.8; O2SAT 98
[2017-07-31 05:40] LABS: AUTOMATED NEUTROPHIL # 4.6 TH/MM3 (1.8-7.7); BASOPHIL # 0.1 TH/MM3 (0-0.2); BASOPHIL % 1.2 % (0.0-2.0); EOSINOPHIL # 0.3 TH/MM3 (0-0.4); EOSINOPHIL % 3.8 % (0.0-4.0); HEMATOCRIT 23.4 % (39.0-51.0); HEMOGLOBIN 7.7 GM/DL (13.0-17.0); LYMPH % 29.5 % (9.0-44.0); LYMPHOCYTE # 2.4 TH/MM3 (1.0-4.8); MEAN CELL VOLUME 66.8 FL (80.0-100.0); MEAN CORPUSCULAR HEMOGLOBIN 22.1 PG (27.0-34.0); MEAN CORPUSCULAR HGB CONC 33.1 % (32.0-36.0); MEAN PLATELET VOLUME 7.2 FL (7.0-11.0); MONO % 8.8 % (0.0-8.0); MONOCYTE # 0.7 TH/MM3 (0-0.9); NEUT % 56.7 % (16.0-70.0); PLATELET COUNT 418 TH/MM3 (150-450); RED CELL DISTRIBUTION WIDTH 23.9 % (11.6-17.2); WHITE BLOOD COUNT 8.1 TH/MM3 (4.0-11.0)
[2017-07-31 06:05] LABS: BICARBONATE 23.1 MEQ/L (21.0-32.0); CALCIUM 9.4 MG/DL (8.5-10.1); CREATININE 2.03 MG/DL (0.60-1.30)
[2017-07-31] MEDS ORDERED: METO-309 PO (07:49)
[2017-07-31] MEDS ORDERED: AMLO10 PO (07:49)
[2017-07-31] MEDS ORDERED: HYDR-3516 PO (07:49)
[2017-07-31] MEDS ORDERED: KLOR10TA PO ×2 (07:49→09:16)
[2017-07-31] MEDS ORDERED: ZYVO600T PO ×2 (07:49→09:24)
[2017-07-31] MEDS ORDERED: ATOR40TA16 PO (07:49)
[2017-07-31] MEDS ORDERED: DAPT500P IV ×2 (07:54→09:21)
--- NOTE | 2017-07-31 07:54 | HHI.DCPOC ---
Discharge Care Plan Diagnosis: (1) SIRS (systemic inflammatory response syndrome) (2) Fever (3) Lung mass Goals to Promote Your Health * To prevent worsening of your condition and complications * To maintain your health at the optimal level Directions to Meet Your Goals Take your medications as prescribed Follow your dietary instruction Follow activity as directed Keep your appointments as scheduled Take your immunizations and boosters as scheduled If your symptoms worsen call your PCP, if no PCP go to Urgent Care Center or Emergency Room Smoking is Dangerous to Your Health. Avoid second hand smoke Call the 24-hour hour crisis hotline for domestic abuse at Evangelina Jones MD R2 Jul 31, 2017 07:54
[2017-07-31 08:16] VITALS: BP 131/62; PULSE 72; RESP 20; TEMP 97.7; O2SAT 99
[2017-07-31] MEDS: SODIUM CHLORIDE 0.9% FLUSH 10 ML FLUSH IV FLUSH SCH (08:23)
[2017-07-31] MEDS: ENOXAPARIN SODIUM 40 MG/0.4 ML SYRINGE SQ SCH (08:23)
[2017-07-31] MEDS: POTASSIUM CHLORIDE 10 MEQ CONTROLLED RELEASE TAB PO SCH (08:24)
[2017-07-31] MEDS: LINEZOLID 600 MG TAB PO SCH (08:24)
[2017-07-31] MEDS: METOPROLOL TARTRATE 50 MG TAB PO SCH (08:25)
[2017-07-31] MEDS ORDERED: SODIUM CHLORIDE 0.9% FLUSH 10 ML FLUSH IV FLUSH SCH (09:00)
--- NOTE | 2017-07-31 09:12 | HHI.NPPN ---
Subjective Renal Failure: Acute History of Present Illness Patient is 57-year-old with PMHx BPH and s/p prostatectomy (on 05/2017) presented to the ED with 2 wks of progressive worsening left side pain and weakness associated with GAINES. Pt follows with urologist Dr. Patel, who completed the surgery. Per records patient had suprapubic catheter placed in May. After prostatectomy pt was unable to void and received 2nd (07/01/2017 ) surgery for placement of urethral catheter. At that time supra pubic catheter was capped. Over the last couple of days there is a significant rise in creatinine at 2.71 today from 0.97 on admission. Has indwelling urinary catheter that is draining urine. Being treated for MRSA sepsis, high grade with embolic brain lesions, with confirmed mitral valve endocarditis persistently positive blood clx. Vancomycin discontinued and on daptomycin. Additional Remarks OOB in chair in good spirits. Discharge plans underway. Denies any SOB. (Samantha Urbano) Review of Systems Respiratory Respiratory Remarks Denies SOB (Samantha Urbano) Cardiovascular Cardiac Remarks Denies CP (Samantha Urbano) Gastrointestinal GI Remarks denies any Abdominal pain (Samantha Urbano) Genitourinary Remarks Denies dysuria (Samantha Urbano) Objective Data Data Vital Signs Date Time Temp Pulse Resp B/P (MAP) Pulse Ox O2 Delivery O2 Flow Rate FiO2 07/31/17 08:16 97.7 72 20 131/62 (85) 99 07/31/17 04:53 98.8 65 20 115/61 (79) 98 07/31/17 01:00 97.5 68 20 100/54 (69) 98 07/30/17 20:00 97.4 76 20 114/61 (78) 100 07/30/17 16:22 97.3 74 20 120/59 (79) 100 07/30/17 11:33 97.3 74 20 141/73 (95) 99 (Samantha Urbano) -: 07/31/17 0515 07/31/17 0515 Physical Exam General Appearance: Obese (Samantha Urbano) Eyes Eye Exam: Pupils Equal (Samantha Urbano) Throat Throat Exam: Oral Mucosa [place] & Moist (Samantha Urbano) Pulmonary Resp Exam: Clear Bilaterally, Breath Sounds Equal, No Distress (Samantha Urbano) Cardiology CV Exam: Regular, Normal Sinus Rhythm (Samantha Urbano) Gastrointestinal/Abdomen GI Exam: Soft, Bowel Sounds Present (Samantha Urbano) Genitourinary Exam: Flank Non-Tender Remarks suprapubic cath capped indwelling cath (Samantha Urbano) Integumentary Skin Exam: Clear, Warm (Samantha Urbano) Extremeties Extremities Exam: Trace Edema (Samantha Urbano) Neurologic Neuro Exam: Alert, Awake (Samantha Urbano) Psychiatric Psych Exam: Appropriate Responses (Samantha Urbano) Assessment/Plan Assessment Summary: Hypertension Problem List: (1) OLLIE (acute kidney injury) ICD Codes: N17.9 - Acute kidney failure, unspecified Plan: OLLIE with possibly ATN from sepsis, complicated UTI not confirmed and endocarditis. Other possibility is Vanco. toxicity vs Acute Interstitial Nephritis. No previous history of Kidney disease. Suprapubic cath capped. Indwelling catheter with good UOP Renal US: Kidneys are echogenic which can be seen with medical renal disease, Echogenic lesion right mid kidney likely represents angiomyolipoma versus less likely calculus and Bilateral renal cysts. Creatinine stable and potassium remains WNL Plan HGB 7.7 stable Continue to monitor I+O Avoid nephrotoxins. Continue to monitor renal function On Daptomycin and zyvox Discharge plans underway (2) HTN (hypertension) ICD Codes: I10 - Essential (primary) hypertension Status: Chronic Plan: Well controlled continue amlodipine and metoprolol (Samantha Urbano) Problem List: (1) OLLIE (acute kidney injury) ICD Codes: N17.9 - Acute kidney failure, unspecified Plan: OLLIE with possibly ATN from sepsis, complicated UTI not confirmed and endocarditis. Other possibility is Vanco. toxicity vs Acute Interstitial Nephritis. No previous history of Kidney disease. Suprapubic cath capped. Indwelling catheter with good UOP Renal US: Kidneys are echogenic which can be seen with medical renal disease, Echogenic lesion right mid kidney likely represents angiomyolipoma versus less likely calculus and Bilateral renal cysts. Creatinine stable and potassium remains WNL Plan HGB 7.7 stable Continue to monitor I+O Avoid nephrotoxins. Continue to monitor renal function On Daptomycin and Zyvox Discharge plans underway. Patient seen and examined, agree with above. Got PICC line, he has OLLIE and expect to go back to normal. Avoid Vancomycin, if D/C follow up with me in 2-3 weeks. (2) HTN (hypertension) ICD Codes: I10 - Essential (primary) hypertension Status: Chronic Plan: Well controlled continue amlodipine and metoprolol (Dewey Marte MD) Problem Qualifiers (1) HTN (hypertension): Qualified Codes: I10 - Essential (primary) hypertension Samantha Urbano Jul 31, 2017 09:12 Dewey Marte MD Jul 31, 2017 11:51
--- NOTE | 2017-07-31 09:12 | HHI.DS ---
Discharge Summary Admission Date Jul 16, 2017 at 08:52 Discharge Date: Jul 31, 2017 Admitting Diagnosis (1) Bacteremia due to Gram-positive bacteria Plan: Blood cultures on admission (07/16): Positive for MRSA. Repeat cultures on 07/19 continued to grow MRSA Repeat cultures 07/21: NG 5 days Repeat cultures 07/23: NG x 4 days Urine Cx 07/16: Negative Repeat Ucx 07/23: Negative History of rectal temp of 102.5, and ESR of 140 on admission and CRP 37 now afebrile 5.9 cm abscess with suspected pneumonia surrounding IR aspiration cultures from 07/23 growing MRSA, tentative to clindamycin, daptomycin, levofloxacin, linezolid, Bactrim, vanc -Infectious disease consulted and Pulm Consulted, appreciate recommendations; Received vancomycin from 07/16 - 07/21 Switched to daptomycin on 07/22 by ID Received Zosyn from 07/16-07/20 Started Linezolid on 07/25 by ID Plan for discharge on Cubicin 6 weeks (end august 31) and linezolid for at least 28 days (end Aug 21) high-grade with embolic brain lesions, likely underlying endocarditis in view of ALEX Embolic stroke with left-sided hemiplegia -Echo negative for endocarditis ALEX results: Mitral valve was structurally normal, but there was evidence of a small mobile mitral valve vegetation. Borderline normal left ventricular systolic function. Trace regurgitation of mitral and tricuspid valve. Trace pulmonary insufficiency Will discuss with infectious disease and nephrology if patient is candidate to receive IV antibiotics at long-term facility as he rehabs from his stroke. ICD Codes: R78.81 - Bacteremia (2) Endocarditis Plan: see plan above for bacteremia ICD Codes: I38 - Endocarditis, valve unspecified (3) OLLIE (acute kidney injury) Plan: Elevated creatinine appreciated on 07/21, had been stable and slowly improving to 2.03 today No known history of CKD, hx of BPH and prostatectomy in May 2017, suprapubic catheter placement with inability to void and subsequently capped and urethral catheter placed ATN via medication (IV Vanc) or sepsis vs. Post-obstructive uropathy vs. AIN -renal u/s: kidneys echogenic, medical renal disease likely -Nephrology consultation, appreciate recommendations -Elevated urine eosinophils at 0-2; possible acute interstitial nephritis - We will continue daptomycin because of possible Vanc reaction Discontinuing IV fluids on 07/29 as patient is tolerating by mouth feeds ICD Codes: N17.9 - Acute kidney failure, unspecified (4) Lung mass Plan: Likely abscess related to MRSA bacteremia, less likely neoplasm -Pulm and ID consulted, recommendation appreciated - IR abscess culture and continue drainage on 07/23 07/23: Cultures growing MRSA - sensitive to Daptomycin, Linezolid -CT chest 07/26 showed smaller abscess, no residual fluid or air noted - drain removed on 07/[address] 07/16/17: Complex loculated 5.9 cm fluid attenuation area at the left lung apex most characteristic of an abscess stanchion into the extrathoracic soft tissues superiorly and extending supraclavicular with locules of air present in the supraclavicular region and within the chest lesion. There is a suspected surrounding pneumonia upper left lung. Cannot exclude necrotic neoplasm. This would be amenable to CT guided aspiration. Mildly enlarged mediastinal and left hilar lymph nodes. Trace left pleural effusion. CRX 07/16: 5cm masslike opacity at the left apex -CXR (07/19): Stable from previous imaging CXR (07/21): Persistent complete opacification of left upper lobe and progressive volume loss with increased parenchymal density within the remainder of the left lower lobe CXR (07/23): No pneumothorax, decreasing density in the left apex ICD Codes: R91.8 - Other nonspecific abnormal finding of lung field Status: Acute (5) HTN (hypertension) Plan: Blood pressure has been more well controlled over the last several days No reported history of hypertension On chart review, history of borderline low blood pressures and headaches over the hospitalization Will continue metoprolol tartrate in the morning and at night, continue amlodipine at noon to avoid symptomatic drops in blood pressure Continue metoprolol tartrate 50 mg twice a day, with holding parameters for hypotension Continue amlodipine to 10 mg daily per nephrology recommendations Continue hydralazine as needed for systolic blood pressures >180, diastolic blood pressures >100 ICD Codes: I10 - Essential (primary) hypertension Status: Chronic (6) Focal infarction of brain Plan: Brain MRI with findings consistent with small focal infarcts, likely embolic in the right occipital lobe and right parietal high convexities near the vertex. Based on patient history, likely have been present for 2 weeks+ -Head CT within normal limits -Neck MRA normal -PT and OT consulted -Continue statin -Monitor vitals, keep BP controlled ICD Codes: I63.9 - Cerebral infarction, unspecified Status: Resolved (7) Left-sided weakness Plan: L sided weakness/severe pain, worse at L shoulder Septic arthritis versus mass effect -neuro checks Q4h -Out of bed with assistance -PT to evaluate, recommendations: Continue physical therapy at rehabilitation and OT therapy. -Will submit OT referral for evaluation Imaging: -MRI lumbar spine: no osteomyelitis, spinal canal stenosis at L3-L5, no significant change from prior study -MRI thoracic spine: multilevel disc spurs at T3-4 and T5-T6 and T9-10, no cord compression, no significant change from prior study -MRI brain: Small focal infarcts likely embolic in the right occipital lobe and right parietal high convexities near the vertex. - Head MRA normal - Echo: EF of 50%. Trace tricuspid valve regurgitation. Otherwise normal echo. - ALEX: small mitral valve vegetation ICD Codes: R53.1 - Weakness Status: Resolved (8) Nutrition, metabolism, and development symptoms Plan: Fluids: Discontinued IV fluids on 07/29, encourage by mouth fluid intake Electrolytes: WNL, replete as needed. Nutrition: regular diet DVT ppx: lovenox (increasing from 30 mg 40 mg per pharmacy recommendation) ICD Codes: R63.8 - Other symptoms and signs concerning food and fluid intake Brief History Patient is 57-year-old M with PMHx BPH and s/p prostatectomy (on 05/2017) presented to the ED with 2 wks of progressive worsening left side pain and weakness associated with GAINES. Pt follows with urologist Dr. Patel, who completed the surgery. Pt's sister was at bedside provided entire history. Pt had suprapubic catheter placed in May. After prostatectomy pt was unable to void and received 2nd (07/01/2017) surgery for placement of urethral catheter. At that time supra pubic catheter was capped. Sister states Left sided weakness started after 2nd surgery. They reported the sxs to urologist and he was given pain medication which has not helped. Of note patient has a nurse that visits once a week to check vital signs. No sick contacts. At base line ambulates with walker at a slow gait. Now pt can barely move Left leg and has not been walking at all. He has bee using wheelchair. CBC/BMP: 07/31/17 0515 07/31/17 0515 Significant Findings Laboratory Tests Test 07/29/17 06:55 07/30/17 06:10 07/31/17 05:15 Red Blood Count 3.38 MIL/MM3 (4.50-5.90) 3.52 MIL/MM3 (4.50-5.90) 3.50 MIL/MM3 (4.50-5.90) Hemoglobin 7.5 GM/DL (13.0-17.0) 7.8 GM/DL (13.0-17.0) 7.7 GM/DL (13.0-17.0) Hematocrit 22.9 % (39.0-51.0) 24.1 % (39.0-51.0) 23.4 % (39.0-51.0) Mean Corpuscular Volume 67.6 FL (80.0-100.0) 68.2 FL (80.0-100.0) 66.8 FL (80.0-100.0) Mean Corpuscular Hemoglobin 22.2 PG (27.0-34.0) 22.1 PG (27.0-34.0) 22.1 PG (27.0-34.0) Red Cell Distribution Width 23.6 % (11.6-17.2) 24.2 % (11.6-17.2) 23.9 % (11.6-17.2) Creatinine 2.06 MG/DL (0.60-1.30) 2.06 MG/DL (0.60-1.30) 2.03 MG/DL (0.60-1.30) Chloride Level 109 MEQ/L (98-107) Estimat Glomerular Filtration Rate 40 ML/MIN (>89) 40 ML/MIN (>89) 41 ML/MIN (>89) Eosinophils (%) (Auto) 4.5 % (0.0-4.0) Total Protein 8.8 GM/DL (6.4-8.2) Albumin 2.1 GM/DL (3.4-5.0) Aspartate Amino Transf (AST/SGOT) 51 U/L (15-37) Monocytes (%) (Auto) 8.8 % (0.0-8.0) Blood Urea Nitrogen 22 MG/DL (7-18) PE at Discharge GENERAL: Patient laying in bed comfortably in no acute distress. SKIN: . Cool and dry. HEAD: Atraumatic. Normocephalic. EYES: Extraocular motions intact. No scleral icterus. No injection or drainage. ENT: Nose without bleeding, purulent drainage or septal hematoma. Airway patent. NECK: Trachea midline. No JVD or lymphadenopathy. Supple, nontender, no meningeal signs. CARDIOVASCULAR: Regular rate and rhythm without murmurs, gallops, or rubs. RESPIRATORY: Good air movement BL. No wheezes or crackles appreciated GASTROINTESTINAL: Abdomen soft, non-tender, non-distended. Supra pubic catheter in place MUSCULOSKELETAL: Extremities without clubbing, cyanosis, or edema. No joint tenderness, effusion, or edema noted. No calf tenderness. Bandage overlying drain site. No local erythema. NEUROLOGICAL: Cranial nerves II through XII grossly intact. Somewhat slurred speech/difficult to understand but unchanged from previous exams. Hospital Course 57-year-old male, presented with 2 weeks of aggressive worsening pain on his left side and headache. He met sepsis criteria on admission with fever, elevated ESR and CRP, and abscess on chest x-ray. Blood cultures were collected and resulted as MRSA positive. ID was consulted and patient continued to be bacteremic from 07/16-07/21. INR aspiration was performed on 07/23 and resulted as a MRSA positive abscess. [facility] MRI revealed small focal infarcts, likely embolic in the right occipital lobe consistent with his left-sided weakness. Patient developed OLLIE on 07/21 while on IV vancomycin and nephrology was consulted to evaluate. The fractional includes acute interstitial nephritis and vancomycin reaction. Sensitivities were reviewed and patient was placed on daptomycin (due to OLLIE) and Linezolid. Patient was discharged with a PICC line to continue linezolid antibiotics to complete a day course and daptomycin IV for 6 week course. Patient was noted to have mobile mitral valve vegetations on ALEX and is suspected to have endocarditis underlying his bacteremia and embolic brain lesions. Patient's pressures were difficult to control over his hospitalization and we discharged him on the medications below that stabilized him over the last few days. Pt Condition on Discharge: Stable Discharge Instructions New Medications: Amlodipine (Amlodipine) 5 Mg Tab 5 MG PO DAILY for Blood Pressure Management, #30 TAB 0 Refills Daptomycin Inj (Cubicin Inj) 500 Mg Bag 750 MG IV Q48H for Infection, #24 BAG 0 Refills Must dilute in appropriate IV Fluid prior to administration Atorvastatin (Atorvastatin) 40 Mg Tab 40 MG PO HS, #30 TAB Hydrocodone/Acetaminophen (Hydrocodone-Acetamin 5-325 mg) 5 Mg-325 Mg Tablet 1 TAB PO Q6H PRN for PAIN GREATER THAN 6, #120 CAPLET Linezolid (Zyvox) 600 Mg Tab 600 MG PO Q12HR, #42 TAB Metoprolol Tartrate (Lopressor) 50 Mg Tab 50 MG PO Q12HR, #60 TAB Potassium Chloride ER (Klor-Con 10) 10 Meq Tab 40 MEQ PO DAILY, #60 TAB Evangelina Jones MD R2 Jul 31, 2017 09:12
--- NOTE | 2017-07-31 09:12 | HHI.FPPN ---
Subjective Remarks Patient seen and examined this morning bedside. Patient states he does not have any left-sided shoulder or leg pain. He is mobilizing and voiding without difficulty. He continues to have 1-2 loose bowel movements per day, some informed. Denies any acute events overnight. Denies any chest pain/shortness breath/dizziness. (Evangelina Jones MD R2) Objective Vitals Vital Signs Date Time Temp Pulse Resp B/P (MAP) Pulse Ox O2 Delivery O2 Flow Rate FiO2 07/31/17 08:16 97.7 72 20 131/62 (85) 99 07/31/17 04:53 98.8 65 20 115/61 (79) 98 07/31/17 01:00 97.5 68 20 100/54 (69) 98 07/30/17 20:00 97.4 76 20 114/61 (78) 100 07/30/17 16:22 97.3 74 20 120/59 (79) 100 07/30/17 11:33 97.3 74 20 141/73 (95) 99 I/O 07/30/17 07/30/17 07/30/17 07/31/17 07/31/17 07/31/17 07:00 15:00 23:00 07:00 15:00 23:00 Intake Total 840 ml Output Total 200 ml 400 ml 2500 ml Balance -200 ml 440 ml -2500 ml Intake Oral 840 ml Output Urine Total 200 ml 400 ml 2500 ml # Bowel Movements 0 2 (Evangelina Jones MD R2) Result Diagram: 07/31/17 0515 07/31/17 0515 Objective Remarks GENERAL: Patient laying in bed comfortably in no acute distress. SKIN: . Cool and dry. HEAD: Atraumatic. Normocephalic. EYES: Extraocular motions intact. No scleral icterus. No injection or drainage. ENT: Nose without bleeding, purulent drainage or septal hematoma. Airway patent. NECK: Trachea midline. No JVD or lymphadenopathy. Supple, nontender, no meningeal signs. CARDIOVASCULAR: Regular rate and rhythm without murmurs, gallops, or rubs. RESPIRATORY: Good air movement BL. No wheezes or crackles appreciated GASTROINTESTINAL: Abdomen soft, non-tender, non-distended. Supra pubic catheter in place MUSCULOSKELETAL: Extremities without clubbing, cyanosis, or edema. No joint tenderness, effusion, or edema noted. No calf tenderness. Bandage overlying drain site. No local erythema. NEUROLOGICAL: Cranial nerves II through XII grossly intact. Somewhat slurred speech/difficult to understand but unchanged from previous exams. (Evangelina Jones MD R2) A/P Assessment and Plan Patient is 57-year-old M with PMHx BPH and s/p prostatectomy (on 05/2017) presented to the ED with 2 wks of progressive worsening left side pain and weakness associated with GAINES. Urologist Dr. Patel, completed the surgery. Pt found to have Left apical lung mass with supraclavicular extension on imaging and focal embolic in in brain MRI. Pt treated for MRSA bacteremia. ALEX results positive for small mitral valve vegetation, likely resulting in the septic emboli to the brain. Pt had IR Aspiration of apical lung mass on 07/24 with cultures growing MRSA. Last positive blood cultures on 07/19, blood cultures on negative. Course complicated by acute rise in creatinine, of possible acute interstitial nephritis, followed by nephrology Discharge Planning Patient cleared by infectious disease and nephrology for discharge to [place] today (Evangelina Jones MD R2) Attending Attestation Patient seen and examined, discussed with resident team. I agree with assessment and management as documented and discussed with me. Pt reports headache is improved. He is excited to go to [place] today. Appreciate ID, nephrology. Greater than 30 minutes spent counselling and coordinating care at discharge. (Marilyn Chiu MD) Problem List: (1) Bacteremia due to Gram-positive bacteria ICD Codes: R78.81 - Bacteremia Plan: Blood cultures on admission (07/16): Positive for MRSA. Repeat cultures on 07/19 continued to grow MRSA Repeat cultures 07/21: NG 5 days Repeat cultures 07/23: NG x 4 days Urine Cx 07/16: Negative Repeat Ucx 07/23: Negative History of rectal temp of 102.5, and ESR of 140 on admission and CRP 37 now afebrile 5.9 cm abscess with suspected pneumonia surrounding IR aspiration cultures from 07/23 growing MRSA, tentative to clindamycin, daptomycin, levofloxacin, linezolid, Bactrim, vanc -Infectious disease consulted and Pulm Consulted, appreciate recommendations; Received vancomycin from 07/16 - 07/21 Switched to daptomycin on 1/29 by ID Received Zosyn from 07/16-07/20 Started Linezolid on 07/25 by ID Plan for discharge on Cubicin 6 weeks (end august 31) and linezolid for at least 28 days (end Aug 21) high-grade with embolic brain lesions, likely underlying endocarditis in view of ALEX Embolic stroke with left-sided hemiplegia -Echo negative for endocarditis ALEX results: Mitral valve was structurally normal, but there was evidence of a small mobile mitral valve vegetation. Borderline normal left ventricular systolic function. Trace regurgitation of mitral and tricuspid valve. Trace pulmonary insufficiency Will discuss with infectious disease and nephrology if patient is candidate to receive IV antibiotics at [facility] as he rehabs from his stroke. (2) Endocarditis ICD Codes: I38 - Endocarditis, valve unspecified Plan: see plan above for bacteremia (3) OLLIE (acute kidney injury) ICD Codes: N17.9 - Acute kidney failure, unspecified Plan: Elevated creatinine appreciated on 07/21, had been stable and slowly improving to 2.03 today No known history of CKD, hx of BPH and prostatectomy in May 2017, suprapubic catheter placement with inability to void and subsequently capped and urethral catheter placed ATN via medication (IV Vanc) or sepsis vs. Post-obstructive uropathy vs. AIN -renal u/s: kidneys echogenic, medical renal disease likely -Nephrology consultation, appreciate recommendations -Elevated urine eosinophils at 0-2; possible acute interstitial nephritis - We will continue daptomycin because of possible Vanc reaction Discontinuing IV fluids on 07/29 as patient is tolerating by mouth feeds (4) Lung mass ICD Codes: R91.8 - Other nonspecific abnormal finding of lung field Status: Acute Plan: Likely abscess related to MRSA bacteremia, less likely neoplasm -Pulm and ID consulted, recommendation appreciated - IR abscess culture and continue drainage on 07/23 07/23: Cultures growing MRSA - sensitive to Daptomycin, Linezolid -CT chest 07/26 showed smaller abscess, no residual fluid or air noted - drain removed on 07/[address] 07/16/17: Complex loculated 5.9 cm fluid attenuation area at the left lung apex most characteristic of an abscess stanchion into the extrathoracic soft tissues superiorly and extending supraclavicular with locules of air present in the supraclavicular region and within the chest lesion. There is a suspected surrounding pneumonia upper left lung. Cannot exclude necrotic neoplasm. This would be amenable to CT guided aspiration. Mildly enlarged mediastinal and left hilar lymph nodes. Trace left pleural effusion. CRX 07/16: 5cm masslike opacity at the left apex -CXR (07/19): Stable from previous imaging CXR (07/21): Persistent complete opacification of left upper lobe and progressive volume loss with increased parenchymal density within the remainder of the left lower lobe CXR (07/23): No pneumothorax, decreasing density in the left apex (5) HTN (hypertension) ICD Codes: I10 - Essential (primary) hypertension Status: Chronic Plan: Blood pressure has been more well controlled over the last several days No reported history of hypertension On chart review, history of borderline low blood pressures and headaches over the hospitalization Will continue metoprolol tartrate in the morning and at night, continue amlodipine at noon to avoid symptomatic drops in blood pressure Continue metoprolol tartrate 50 mg twice a day, with holding parameters for hypotension Continue amlodipine to 10 mg daily per nephrology recommendations Continue hydralazine as needed for systolic blood pressures >180, diastolic blood pressures >100 (6) Focal infarction of brain ICD Codes: I63.9 - Cerebral infarction, unspecified Status: Resolved Plan: Brain MRI with findings consistent with small focal infarcts, likely embolic in the right occipital lobe and right parietal high convexities near the vertex. Based on patient history, likely have been present for 2 weeks+ -Head CT within normal limits -Neck MRA normal -PT and OT consulted -Continue statin -Monitor vitals, keep BP controlled (7) Left-sided weakness ICD Codes: R53.1 - Weakness Status: Resolved Plan: L sided weakness/severe pain, worse at L shoulder Septic arthritis versus mass effect -neuro checks Q4h -Out of bed with assistance -PT to evaluate, recommendations: Continue physical therapy at rehabilitation and OT therapy. -Will submit OT referral for evaluation Imaging: -MRI lumbar spine: no osteomyelitis, spinal canal stenosis at L3-L5, no significant change from prior study -MRI thoracic spine: multilevel disc spurs at T3-4 and T5-T6 and T9-10, no cord compression, no significant change from prior study -MRI brain: Small focal infarcts likely embolic in the right occipital lobe and right parietal high convexities near the vertex. - Head MRA normal - Echo: EF of 50%. Trace tricuspid valve regurgitation. Otherwise normal echo. - ALEX: small mitral valve vegetation (8) Nutrition, metabolism, and development symptoms ICD Codes: R63.8 - Other symptoms and signs concerning food and fluid intake Plan: Fluids: Discontinued IV fluids on 07/29, encourage by mouth fluid intake Electrolytes: WNL, replete as needed. Nutrition: regular diet DVT ppx: lovenox (increasing from 30 mg 40 mg per pharmacy recommendation) (Evangelina Jones MD R2) Problem Qualifiers (1) HTN (hypertension): Qualified Codes: I10 - Essential (primary) hypertension Evangelina Jones MD R2 Jul 31, 2017 09:12 Marilyn Chiu MD Jul 31, 2017 16:57
[2017-07-31] MEDS ORDERED: AMLO5TAB2 PO (09:14)
--- NOTE | 2017-07-31 11:24 | HHI.IDPN ---
Subjective Subjective Remarks ID COVERAGE Chart reviewed 57 year old diagnosed to have MRSA bacteremia and has MV IE Has loculated fluid collection in L apex, with some extension Notes reviewed D/W FM team To go to [facility] today Awake and alert, no complaints Afebrile Labs reviewed PICC in place Reviewed nephrology notes Possibly with acute interstitial nephritis due to Vanco No new (+) BC Good UO Creat slightly lower WBC down to normal Urine eos 0-2 Fluid C/S also with MRSA Last (+) BC 07/19 Not SOB Has bryan, good UO Antibiotics Current Medications Cubicin Zyvox Medications (Trade) Dose Ordered Sig/Briseyda Route Start Time Stop Time Status Last Admin (NS Flush) 2 ml UNSCH PRN IV FLUSH 07/16/17 09:45 (NS Flush) 2 ml BID IV FLUSH 07/16/17 21:00 07/31/17 08:23 (Zofran Inj) 4 mg Q6H PRN IVP 07/16/17 09:45 (Milk Of Magnesia Liq) 30 ml Q12H PRN PO 07/16/17 09:45 (Senokot) 17.2 mg Q12H PRN PO 07/16/17 09:45 (Dulcolax Supp) 10 mg DAILY PRN RECTAL 07/16/17 09:45 (Lactulose Liq) 30 ml DAILY PRN PO 07/16/17 09:45 (Narcan Inj) 0.4 mg UNSCH PRN IV PUSH 07/16/17 19:00 (Lipitor) 40 mg HS PO 07/17/17 21:00 07/30/17 20:53 ([place] 5-325 Mg) 1 tab Q6H PRN PO 07/17/17 16:30 07/30/17 10:58 (KCl) 40 meq Q12HR PO 07/20/17 12:15 07/31/17 08:24 (Apresoline) 10 mg Q6HR PRN PO 07/21/17 13:00 07/25/17 00:49 Daptomycin 750 mg/ Sodium Chloride 100 ml @ 200 mls/hr Q48H IV 07/24/17 17:00 07/30/17 16:22 (Lopressor) 50 mg Q12HR PO 07/23/17 09:00 07/31/17 08:25 (Zyvox) 600 mg Q12HR PO 07/25/17 12:00 07/31/17 08:24 (Lovenox Inj) 40 mg Q24H SQ 07/30/17 08:00 07/31/17 08:23 (NS Flush) See Protocol DAILY IV FLUSH 07/31/17 09:00 07/31/17 08:23 (NS Flush) See Protocol UNSCH PRN IV FLUSH 07/30/17 17:45 (Heparin Central Flush) See Protocol DAILY IV FLUSH 07/31/17 09:00 07/31/17 08:23 (Heparin Central Flush) See Protocol UNSCH PRN IV FLUSH 07/30/17 17:45 (NS Flush) UNSCH PRN IV FLUSH 07/30/17 17:45 (Norvasc) 5 mg DAILY PO 08/01/17 09:00 Lines PIV Past Medical History BPH neuropathy Past Surgical History cervical spine fusion-- after a fall in 2002 lower spinal fusion 2 yrs ago prostatectomy, May 2017 Allergies: Coded Allergies: No Known Allergies (Verified Allergy, Unknown, 07/16/17) Objective . Vital Signs Date Time Temp Pulse Resp B/P (MAP) Pulse Ox O2 Delivery O2 Flow Rate FiO2 07/31/17 08:16 97.7 72 20 131/62 (85) 99 07/31/17 04:53 98.8 65 20 115/61 (79) 98 07/31/17 01:00 97.5 68 20 100/54 (69) 98 07/30/17 20:00 97.4 76 20 114/61 (78) 100 07/30/17 16:22 97.3 74 20 120/59 (79) 100 07/30/17 11:33 97.3 74 20 141/73 (95) 99 . Laboratory Tests Test 07/30/17 06:10 07/31/17 05:15 White Blood Count 7.8 TH/MM3 8.1 TH/MM3 Red Blood Count 3.52 MIL/MM3 3.50 MIL/MM3 Hemoglobin 7.8 GM/DL 7.7 GM/DL Hematocrit 24.1 % 23.4 % Mean Corpuscular Volume 68.2 FL 66.8 FL Mean Corpuscular Hemoglobin 22.1 PG 22.1 PG Mean Corpuscular Hemoglobin Concent 32.4 % 33.1 % Red Cell Distribution Width 24.2 % 23.9 % Platelet Count 389 TH/MM3 418 TH/MM3 Mean Platelet Volume 7.6 FL 7.2 FL Neutrophils (%) (Auto) 57.5 % 56.7 % Lymphocytes (%) (Auto) 29.5 % 29.5 % Monocytes (%) (Auto) 7.1 % 8.8 % Eosinophils (%) (Auto) 4.5 % 3.8 % Basophils (%) (Auto) 1.4 % 1.2 % Neutrophils # (Auto) 4.5 TH/MM3 4.6 TH/MM3 Lymphocytes # (Auto) 2.3 TH/MM3 2.4 TH/MM3 Monocytes # (Auto) 0.6 TH/MM3 0.7 TH/MM3 Eosinophils # (Auto) 0.3 TH/MM3 0.3 TH/MM3 Basophils # (Auto) 0.1 TH/MM3 0.1 TH/MM3 CBC Comment DIFF FINAL DIFF FINAL Differential Comment Laboratory Tests Test 07/30/17 06:10 07/31/17 05:15 Blood Urea Nitrogen 18 MG/DL 22 MG/DL Creatinine 2.06 MG/DL 2.03 MG/DL Random Glucose 82 MG/DL 83 MG/DL Total Protein 8.8 GM/DL Albumin 2.1 GM/DL Calcium Level 9.3 MG/DL 9.4 MG/DL Alkaline Phosphatase 80 U/L Aspartate Amino Transf (AST/SGOT) 51 U/L Alanine Aminotransferase (ALT/SGPT) 67 U/L Total Bilirubin 0.4 MG/DL Sodium Level 136 MEQ/L 138 MEQ/L Potassium Level 4.5 MEQ/L 4.2 MEQ/L Chloride Level 105 MEQ/L 107 MEQ/L Carbon Dioxide Level 23.3 MEQ/L 23.1 MEQ/L Anion Gap 8 MEQ/L 8 MEQ/L Estimat Glomerular Filtration Rate 40 ML/MIN 41 ML/MIN Total Creatine Kinase 129 U/L Imaging RADIOLOGY STUDIES/FILMS REVIEWED Chest CT 07/26/17 0600 Signed Impressions: Service Date/Time: Wednesday, July 26, 2017 09:11 - CONCLUSION: Interval placement of percutaneous drainage catheter. The abscess is smaller and there is no residual fluid or air now noted. Residual infiltrate remains in the left upper lobe. Akash Calvert MD Chest X-Ray 07/24/17 0000 Signed Impressions: Service Date/Time: Monday, July 24, 2017 08:40 - CONCLUSION: No pneumothorax. Decreasing density left apex. Tahir Miramontes MD Renal Ultrasound 07/23/17 0000 Signed Impressions: Service Date/Time: Sunday, July 23, 2017 10:36 - CONCLUSION: 1. Kidneys are echogenic which can be seen with medical renal disease. 2. Echogenic lesion right mid kidney likely represents angiomyolipoma versus less likely calculus. 3. Bilateral renal cysts. Tahir Miramontes MD Abscess Drainage CT 07/23/17 0000 Signed Impressions: Service Date/Time: Sunday, July 23, 2017 16:48 - CONCLUSION: Uncomplicated CT guided drainage of the empyema in the left apex. Tahir Miramontes MD Shoulder X-Ray 07/20/17 0000 Signed Impressions: Service Date/Time: Thursday, July 20, 2017 12:54 - CONCLUSION: No evidence of fracture. Cliff Lomeli MD Shoulder MRI 07/20/17 0000 Signed Impressions: Service Date/Time: Thursday, July 20, 2017 12:09 - CONCLUSION: 1. Abscess of the left lung apex again seen with anterior and posterior extension of abnormal enhancement and edema. There is extension of abscess anteriorly just inferior to the sternoclavicular joint. Elongated extension of abscess along the deep margin of the pectoralis muscle also noted. Extension of the edema and enhancement suggesting soft tissue infection in the region of the proximal coracobrachialis and biceps muscles. 2. No evidence of osteomyelitis. 3. Glenohumeral joint within normal limits. 4. Moderate acromioclavicular joint arthrosis. 5. Rotator cuff tendons are intact. Cliff Lomeli MD Abdomen X-Ray 07/19/17 0000 Signed Impressions: Service Date/Time: Wednesday, July 19, 2017 14:08 - CONCLUSION: Bowel distention as described above. There is no free air. Fredy Vega MD FACR Neck Magnetic Resonance Angiography 07/17/17 0000 Signed Impressions: Service Date/Time: Monday, July 17, 2017 09:00 - CONCLUSION: 1. Normal carotid arteries. Tahir Miramontes MD Head Magnetic Resonance Angiography 07/17/17 0000 Signed Impressions: Service Date/Time: Monday, July 17, 2017 09:00 - CONCLUSION: 1. No large vessel aneurysm or stenosis. 2. Normal variants as described above. Tahir Miramontes MD Thoracic Spine MRI 07/16/17 0000 Signed Impressions: Service Date/Time: Sunday, July 16, 2017 10:42 - CONCLUSION: 1. Multilevel disc spurs at T3-4, T5-T6 scan, most significantly at T9-10. Despite degenerative changes, there is no cord compromise at any thoracic level. No significant change from prior. 2. Possible loculated effusion in the left lung apex. Bonifacio Echeverria MD Lumbar Spine MRI 07/16/17 0000 Signed Impressions: Service Date/Time: Sunday, July 16, 2017 10:42 - CONCLUSION: 1. Stable CT scan of the lumbar spine compared to the prior examination of 07/29/2015. 2. No evidence to suggest discitis or osteomyelitis. 3. There continues to be spinal canal stenosis at L3-4 and L4-5 without significant change compared to the prior study. Fahad Garrido MD Head CT 07/16/17 0000 Signed Impressions: Service Date/Time: Sunday, July 16, 2017 07:04 - CONCLUSION: Unremarkable study. KAshlie Lind MD Cervical Spine MRI 07/16/17 0000 Signed Impressions: Service Date/Time: Sunday, July 16, 2017 10:42 - CONCLUSION: 1. Stable overall appearance of the cervical spine compared to the prior examination of 07/28/2015. 2. Specifically, no evidence to suggest discitis or osteomyelitis. Fahad Garrido MD Brain MRI 07/16/17 0000 Signed Impressions: Service Date/Time: Sunday, July 16, 2017 10:42 - CONCLUSION: 1. 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 Vasquez Thayer MD Abdomen/Pelvis CT 07/16/17 0000 Signed Impressions: Service Date/Time: Sunday, July 16, 2017 12:49 - CONCLUSION: 1. Suprapubic catheter present presumably passing into bladder with thickened bladder wall. There is a Bryan catheter present with the balloon in the lower bladder or possibly within the prostatic region. Patient is reportedly status post prostatectomy. 2. Diffuse ileus. Stable renal cysts. 3. Mild inflammatory changes left lung base. Ryan Byrnes MD Physical Exam GENERAL: up in chair, not in distress SKIN: Cool, moist, not diaphoretic. No rash HEENT: Pale conjunctiva, no petechia or hemorrhage, full EOM, dry oral mucosa NECK: Supple and not tender CARDIOVASCULAR: Regular rate and rhythm, no murmurs, or rubs. RESPIRATORY/CHEST: Clear to auscultation. Breath sounds equal bilaterally. No wheezes, rales, or rhonchi. GASTROINTESTINAL: Abdomen soft, obese, non-tender, nondistended. No guarding. Bowel sounds present. GENITOURINARY: SP cath is capped. Bryan in place, urine clear MUSCULOSKELETAL: Extremities without clubbing, cyanosis, + 1 edema. No calf tenderness. NEUROLOGICAL: Awake and alert. Non-focal PSYCHIATRIC: Cooperative LINE: No evidence of infection Assessment & Plan Remarks MRSA sepsis, high grade with embolic brain lesions, with confirmed mitral valve endocarditis - last (+) BC 07/19; 07/21 negative so far Complex loculated 5.9 cm fluid attenuation area at the left lung apex most characteristic of an abscess with extension into the extrathoracic soft tissues - empyema/abscess, has drainage cath - this could explain persistent (+) BC - drained, with improvement on last CT Suspected complex UTI sp prostatic surgery and SP cath - culture not confirmed infection Mitral valve endocarditis 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 - eos in urine 0-2 - creatinine slowly decreasing PLAN Continue Cubicin - plan 6 weeks Rx for his IE - anticipated end date August 31 - follow CPK weekly Continue Zyvox - at least 28 days for his empyema - anticipated end date Aug 21 - hopefully he can tolerate this - follow CBC weekly For D/C to [facility] Spoke with FP resident Spoke with Nydia Pickens MD Jul 31, 2017 11:24
[2017-07-31 11:57] VITALS: BP 114/72; PULSE 77; RESP 20; TEMP 97.2; O2SAT 100
[2017-08-01] MEDS ORDERED: amLODIPine BESYLATE 5 MG TAB PO SCH (09:00)
== END 2017-07-31 14:53 | DRG 288 ==
LOC: NEPE 05:34 → NEDA 08:52 → N05A 09:44
PROVIDERS: ADMIT Family Medicine; ATTEND Family Medicine
PROC: B246ZZ4 Ultrasonography of Right and Left Heart, Transesophageal (ICD-10-PCS; principal; 2017-07-18)
PROC: 0B9L3ZX Drainage of Left Lung, Percutaneous Approach, Diagnostic (ICD-10-PCS; 2017-07-23)
DX: I33.0 Acute and subacute infective endocarditis (principal); A41.02 Sepsis due to Methicillin resistant Staphylococcus aureus; I63.40 Cerebral infarction due to embolism of unspecified cerebral artery; I76 Septic arterial embolism; J85.1 Abscess of lung with pneumonia; T83.511A Infection and inflammatory reaction due to indwelling urethral catheter, initial encounter; G81.94 Hemiplegia, unspecified affecting left nondominant side; N39.0 Urinary tract infection, site not specified; N17.9 Acute kidney failure, unspecified; I10 Essential (primary) hypertension; E87.6 Hypokalemia; Y84.6 Urinary catheterization as the cause of abnormal reaction of the patient, or of later complication, without mention of misadventure at the time of the procedure; N40.0 Benign prostatic hyperplasia without lower urinary tract symptoms; G62.9 Polyneuropathy, unspecified; Z98.1 Arthrodesis status; Z83.3 Family history of diabetes mellitus; Z82.49 Family history of ischemic heart disease and other diseases of the circulatory system; E78.5 Hyperlipidemia, unspecified; M19.019 Primary osteoarthritis, unspecified shoulder
CPT/HCPCS: 36569; 70450; 70544; 70548; 70553; 71045; 71046; 71250; 71260; 72156; 72157; 72158; 73030; 73223; 74018; 74177; 75989; 76775; 76937; 80048; 80053; 80076; 80202; 80307; 81001; 82272; 82550; 82948; 83036; 83605; 83735; 83935; 84100; 84244; 84300; 85025; 85610; 85652; 85730; 86140; 86403; 87040; 87070; 87086; 87147; 87186; 87205; 87493; 88112; 88305; 93306; 93312; 93320; 93325; 96365; 96375; A9579; C1729; C1769; J0878; J1642; J1650; J1885; J2250; J2543; J3010; J3370; J3475; J3480; J7030; J7040; J7050; P9045; Q9967

== ENCOUNTER 2017-08-22 10:24 | Inpatient (IN) | payer MEDICARE ==
[~2017-08-22 10:24] MED LIST changes: +AMLO5TAB2 PO; -AMPICILLIN 1 GM/NS 100 ML IV SCH; +ASPI81 CHEW; +ATOR40TA16 PO; -BELLADONNA ALKALOIDS/OPIUM 60 MG SUPP RECTAL ONE; -BELLADONNA ALKALOIDS/OPIUM 60 MG SUPP RECTAL SCH; -CHLORHEXIDINE GLUCONATE 2 % 1 PACK (2 CLOTHS) TOPICAL PRN; +DAPT500P IV; -DEXAMETHASONE SOD PHOS 4 MG/ML VIAL IV ONE; -DO NOT ADM ANY ANTICOAGULANT DRUGS PRN; +EPIN1INJ21 IV PUSH; +EPIN1INJ21 SQ; +FAMO20TA2 PO; -GENTAMICIN INJ 240 MG in SODIUM CHLORIDE 0.9% INJ 100 ML IV SCH; -GLYCOPYRROLATE 1 MG/5 ML SYRINGE IV PUSH ONE; +HYDR-3516 PO; -INSULIN HUMAN REGULAR 1,000 UNITS/10 ML VIAL SQ PRN; +KLOR10TA PO; -LACTATED RINGER'S 1000 ML IV PRN; -LIDOCAINE HCL 1% PF 5 ML SYRINGE OTHER ONE; +METO-309 PO; -METOPROLOL TARTRATE 25 MG TAB PO PRN; -MORPHINE SULFATE 2 MG/ML INJ IV PRN; -NEOSTIGMINE 5 MG/5 ML SYRINGE IV PUSH ONE; +NITR1SUB2 SL; -ONDANSETRON HCL 4 MG/2 ML VIAL IV PRN; -ONDANSETRON HCL 4 MG/2 ML VIAL IV PUSH ONE; -PHENYLEPH/NS 1000 MCG/10 ML SYR IV ONE; -POVIDONE IODINE 5% (ANTISEPSIS KIT) 4 APPLICATIONS EACH NARE PRN; -PROPOFOL 200 MG/20 ML AMP IV ONE; -ROCURONIUM INJ 50 MG/5 ML SYRINGE IV PUSH ONE; +SIME125 PO; -SODIUM CHLORID 0.9% 500 ML IV PRN; +SOLU250I IV PUSH; +ZYVO600T PO; -oxyCODONE/ACETAMINOPHEN 5 MG/325 MG TAB PO PRN
[2017-08-22] MEDS ORDERED: hydrALAZINE HCL 10 MG TAB PO PRN (12:00)
[2017-08-22] MEDS ORDERED: LACTULOSE SYRUP 20 GM/30 ML CUP PO PRN (12:00)
[2017-08-22] MEDS ORDERED: SODIUM CHLORIDE 0.9% FLUSH 10 ML FLUSH IV FLUSH PRN ×2 (12:00→16:30)
[2017-08-22] MEDS ORDERED: MAGNESIUM HYDROXIDE SUSP 30 ML CUP PO PRN (12:00)
[2017-08-22] MEDS ORDERED: NALOXONE HCL 0.4 MG/ML AMP IV PUSH PRN ×2 (12:00→16:30)
[2017-08-22] MEDS ORDERED: SENNOSIDES 8.6 MG TAB PO PRN (12:00)
[2017-08-22] MEDS ORDERED: SODIUM CHLORID 0.9% 500 ML INJ 500 ML IV ONE (12:00)
[2017-08-22] MEDS ORDERED: ONDANSETRON ODT 4 MG TAB PO PRN (12:00)
[2017-08-22] MEDS ORDERED: ACETAMINOPHEN 325 MG TAB PO PRN (12:00)
[2017-08-22] MEDS ORDERED: BISACODYL 10 MG SUPP RECTAL PRN (12:00)
--- NOTE | 2017-08-22 14:44 | HHI.HP ---
[facility] Service Family Medicine Primary Care Physician Phil Polanco DO Admission Diagnosis anemia Diagnoses: Chief Complaint: lightheadedness International Travel<30 Days: No Contact w/Intl Traveler<30days: No Known Affected Area: No History of Present Illness Mr Mcintosh is a 57YO male w/PMHx of BPH s/p prostatectomy in 05/2017, left-sided hemiparesis, and MRSA endocarditis who is transferring back from [facility] due to symptomatic anemia with Hgb 6.7 this morning. After the abnormal Hgb was noted the pt complained of being lightheaded and HOB was made flat by nurse. Nursing notes he has not had a BM in several days and has been given a laxative that has decreased his lightheadedness. Pt more recently complained of "sawing CP" on 08/19 before an episode of syncope. He was doing exercises with PT when he complained of CP and then became unresponsive for 1-2 minutes before opening his eyes and responding to commands. Pt, who is not a good historian but reports CP was 10/10 on pain scale with some possible radiation toward his left shoulder. Denies any feeling of radiating toward his back. A Halicat was called at 1150AM that day and nitroglycerin was administered at 1206PM that aborted pt' s CP. Today, pt denies CP, SOB, nausea, diaphoresis, vomiting, diarrhea, or abdominal pain but felt like his abdomen was "tight". Cardiology had been consulted to see him following the syncopal episode that produced a normal ECHO study. Dr Kruger, ID, is following pt for ongoing tx for MRSA endocarditis that completed zyxox yesterday on 08/21 and is continuing with daptomycin until . (Matthew Cardona MD R1) Review of Systems Other Constitutional: COMPLAINS OF: Fatigue (nursing reports he was lethargic yesterday), Dizziness, DENIES: Fever, Weight gain, Weight loss, Chills Eyes: DENIES: Blurred vision, Diplopia Ears, nose, mouth, throat: DENIES: Hearing loss, Nasal discharge, Throat pain, Hoarseness Respiratory: DENIES: Cough, Wheezing, Shortness of breath Cardiovascular: DENIES: Chest pain, Palpitations Gastrointestinal: COMPLAINS OF: Abdominal pain (abdominal feeling of "tightness "), DENIES: Black stools, Bloody stools, Constipation, Diarrhea, Nausea, Vomiting Genitourinary: DENIES: Dysuria Musculoskeletal: DENIES: Joint pain, Muscle aches Integumentary: DENIES: Pruritus, Rash Neurologic: DENIES: Headache, Seizures (Matthew Cardona MD R1) Past Family Social History Past Medical History MRSA endocarditis BPH neuropathy Dysarthria Past Surgical History cervical spine fusion-- after a fall in 2002 lower spinal fusion 2 yrs ago prostatectomy, May 2017 Reported Medications Reported Meds & Active Scripts Active Nitroglycerin SL (Nitroglycerin) 0.3 Mg Subl 0.3 Mg SL DIRECTED PRN ONE TABLET UNDER THE TONGUE NEEDED FOR CHEST PAIN, MAY REPEAT EVERY FIVE MINUTES FOR A TOTAL OF 3 DOSES OR CALL 911 IF NO RELIEF Tgt Aspirin (Aspirin) 81 Mg Chw 81 Mg CHEW DAILY 30 Days Famotidine 20 Mg Tab 20 Mg PO BID 30 Days Gas Relief Extra Strength (Simethicone) 125 Mg Chw 125 Mg PO Q8HR PRN 30 Days Klor-Con 10 (Potassium Chloride) 10 Meq Tab 40 Meq PO DAILY Amlodipine (Amlodipine Besylate) 5 Mg Tab 5 Mg PO DAILY Lopressor (Metoprolol Tartrate) 50 Mg Tab 50 Mg PO Q12HR Atorvastatin (Atorvastatin Calcium) 40 Mg Tab 40 Mg PO HS Epinephrine Inj 1 Mg/Ml (1 Ml) Inj 0.3 Mg SQ ONCE PRN Give with any signs of respiratory distress. Epinephrine Inj 1 Mg/Ml (1 Ml) Inj 0.3 Mg IV PUSH ONCE PRN Solu-Cortef Inj (Hydrocortisone Sodium Succinate) 250 Mg/2 Ml Inj 250 Mg IV PUSH ONCE PRN Give over 30-60 seconds. Cubicin Inj (Daptomycin) 500 Mg Bag 750 Mg IV Q24H 14 Days Must dilute in appropriate IV Fluid prior to administration Cubicin Inj (Daptomycin) 500 Mg Bag 750 Mg IV Q48H Must dilute in appropriate IV Fluid prior to administration Hydrocodone-Acetamin 5-325 mg (Hydrocodone/Acetaminophen) 5 Mg-325 Mg Tablet 1 Tab PO Q6H PRN (Matthew Cardona MD R1) Allergies: Coded Allergies: No Known Allergies (Verified Allergy, Unknown, 07/16/17) Active Ordered Medications Current Medications Medications (Trade) Dose Ordered Sig/Briseyda Route Start Time Stop Time Status Last Admin Sodium Chloride 500 ml @ 500 mls/hr BOLUS ONCE IV 08/22/17 12:00 08/22/17 12:59 UNV (NS Flush) 2 ml UNSCH PRN IV FLUSH 08/22/17 12:00 UNV (NS Flush) 2 ml BID IV FLUSH 08/22/17 21:00 UNV (Tylenol) 650 mg Q4H PRN PO 08/22/17 12:00 UNV (Lovenox Inj) 40 mg Q24H SQ 08/22/17 12:00 UNV (Narcan Inj) 0.4 mg UNSCH PRN IV PUSH 08/22/17 12:00 UNV (Lucía-Colace) 1 tab BID PO 08/22/17 21:00 UNV (Milk Of Magnesia Liq) 30 ml Q12H PRN PO 08/22/17 12:00 UNV (Senokot) 17.2 mg Q12H PRN PO 08/22/17 12:00 UNV (Dulcolax Supp) 10 mg DAILY PRN RECTAL 08/22/17 12:00 UNV (Lactulose Liq) 30 ml DAILY PRN PO 08/22/17 12:00 UNV Daptomycin 750 mg/ Sodium Chloride 100 ml @ 200 mls/hr Q24H IV 08/23/17 12:00 UNV (Norvasc) 5 mg DAILY PO 08/23/17 09:00 UNV (Aquaphor Oint) 1 applic Q12HR TOPICAL 08/22/17 21:00 UNV (Aspirin Chew) 81 mg DAILY CHEW 08/23/17 09:00 UNV (Pepcid) 20 mg BID PO 08/22/17 21:00 UNV (Apresoline) 10 mg Q8HR PRN PO 08/22/17 12:00 UNV (Lopressor) 50 mg Q12HR PO 08/22/17 21:00 UNV (Zofran Odt) 4 mg Q6H PRN PO 08/22/17 12:00 UNV (KCl) 25 meq DAILY PO 08/23/17 09:00 UNV Family History Father- stroke Mother-heart disease, DM Sister-heart attack Social History Lives in home with brother and is disabled Denies smoking, alcohol or illicit drug use (Matthew Cardona MD R1) Physical Exam Physical Exam GENERAL: This is a well-nourished, well-developed patient lying in bed who appears pale and tired. SKIN: No rashes, ecchymoses or lesions. Cool and dry. HEAD: Atraumatic. Normocephalic. No temporal or scalp tenderness. EYES: Pupils equal round and reactive. Extraocular motions intact. No scleral icterus. No injection or drainage. ENT: Nose without bleeding or drainage. Throat without erythema, tonsillar hypertrophy or exudate. Uvula midline. Airway patent. NECK: Trachea midline. No JVD or lymphadenopathy. Supple, nontender, no meningeal signs. CARDIOVASCULAR: Regular rate and rhythm without murmurs, gallops, or rubs. RESPIRATORY: Clear to auscultation. Breath sounds equal bilaterally. No wheezes , rales, or rhonchi. GASTROINTESTINAL: Abdomen soft, non-tender, nondistended. No hepato-splenomegaly , or palpable masses. No guarding. MUSCULOSKELETAL: Extremities without clubbing, cyanosis, or edema. No joint tenderness, effusion, or edema noted. No calf tenderness. NEUROLOGICAL: Awake and alert. Cranial nerves II through XII intact. Slow speech. Laboratory Hgb 6.7 / Hct 20.6 on 08/22/17 (Matthew Cardona MD R1) Septic Shock Reassessment Septic shock perfusion: reassessment completed (Matthew Cardona MD R1) Caprini VTE Risk Assessment Caprini VTE Risk Assessment: Mod/High Risk (score >= 2) Caprini Risk Assessment Model Point Value = 1 Point Value = 2 Point Value = 3 Point Value = 5 Age 41-60 Minor surgery BMI > 25 kg/m2 Swollen legs Varicose veins or History of unexplained or recurrent spontaneous Oral contraceptives or hormone replacement Sepsis (< 1 month) Serious lung disease, including pneumonia (< 1 month) Abnormal pulmonary function Acute myocardial infarction Congestive heart failure (< 1 month) History of inflammatory bowel disease Medical patient at bed rest Age 61-74 Arthroscopic surgery Major open surgery (> 45 min) Laparoscopic surgery (> 45 min) Malignancy Confined to bed (> 72 hours) Immobilizing plaster cast Central venous access Age >= 75 History of VTE Family history of VTE Factor V Leiden Prothrombin [id number] Lupus anticoagulant Anticardiolipin antibodies Elevated serum homocysteine Heparin-induced thrombocytopenia Other congenital or acquired thrombophilia Stroke (< 1 month) Elective arthroplasty Hip, pelvis, or leg fracture Acute spinal cord injury (< 1 month) Prophylaxis Regimen Total Risk Factor Score Risk Level Prophylaxis Regimen 0-1 Low Early ambulation 2 Moderate Order ONE of the following: *Sequential Compression Device (SCD) *Heparin 5000 units SQ BID 3-4 Higher Order ONE of the following medications: *Heparin 5000 units SQ TID *Enoxaparin/Lovenox 40 mg SQ daily (WT < 150 kg, CrCl > 30 mL/min) *Enoxaparin/Lovenox 30 mg SQ daily (WT < 150 kg, CrCl > 10-29 mL/min) *Enoxaparin/Lovenox 30 mg SQ BID (WT < 150 kg, CrCl > 30 mL/min) AND/OR *Sequential Compression Device (SCD) 5 or more Highest Order ONE of the following medications: *Heparin 5000 units SQ TID (Preferred with Epidurals) *Enoxaparin/Lovenox 40 mg SQ daily (WT < 150 kg, CrCl > 30 mL/min) *Enoxaparin/Lovenox 30 mg SQ daily (WT < 150 kg, CrCl > 10-29 mL/min) *Enoxaparin/Lovenox 30 mg SQ BID (WT < 150 kg, CrCl > 30 mL/min) AND *Sequential Compression Device (SCD) (Matthew Cardona MD R1) Assessment and Plan Assessment and Plan Mr Mcintosh is a 57YO male with PMHx BPH s/p prostatectomy, urinary retention requiring an indwelling suprapubic cath from May 2017 to 08/09/17, embolic CVA, MRSA endocarditis undergoing IV antibiotic therapy, and [facility] who experienced an episode of syncope preceded by tearing CP. ID is consulted for abx management. Cardiology consulted as well for syncope workup. He is a very poor historian so it is difficult to tell what caused the syncopal episode. the only new finding is the q waves. 08/22 late morning pt became acutely lightheaded; Hgb this morning 6.7; on exam, pt experiencing no CP, no other pain, no SOB, but abdomen "feels" tight to pt, but no guarding, tympany, rebound -Type and screen -Transfuse 2u PRBCs -GI consulted -Keep HOB flat -Frequent VS -Continue daptomycin as per ID orders (Matthew Cardona MD R1) Attending Attestation Patient seen and examined. Case reviewed and discussed with the resident team. Agree with plan of care as discussed with me and documented in the resident note. Mr Mcintosh has had a workup for anemia and is Fe deficient without any abnormalities in his Hb (Clementina Fowler MD) Problem List: (1) Anemia ICD Codes: D64.9 - Anemia, unspecified Status: Chronic Plan: Pt with persistent anemia with Hgb <9.0 since 01/22, and Hgb <13.0 since ; today Hgb 6.7 and symptomatic -Type and screen -Transfusing 2u PRBCs -F/u H&H at 8PM -FOBT 08/20 negative -GI consulted--appreciate recs -Daily CBC==transfuse if Hgb<7.0 or if pt symptomatic -Iron study rehab stay showing low normal Iron, low TIBC but normal saturation -MCV 66-68 less suggestive of anemia of chronic disease -Path blood smear suggests WES vs thalassemia -Hgb electrophoresis pending -Zyvox treatment completed 08/21; Daptomycin continuing until 09/01 (2) Syncope ICD Codes: R55 - Syncope and collapse Status: Acute Plan: Pt with new onset syncope while working with PT on 08/19 -Cardiology consulted--appreciate recs -ECHO with EF50-55%, mild mitral valve regurg, mild-moderate left atrial dilation, mild right atrial dilation -EKG showing possible inferior infarct between May 2017 and present as new q waves are present in all 3 leads -Troponin <0.02 -Carotid artery US negative -ASA 325mg PO given --> now ASA 81mg PO daily -Hgb 6.7--transfusing as per above; follow with daily CBC (3) Chest pain ICD Codes: R07.9 - Chest pain, unspecified Status: Resolved Plan: Tearing CP while working with PT; resolved with nitroglycerin once; consider angina vs pleural pain vs other etiology; has been asymptomatic since -Nitroglycerin paste 0.5 inch q8h PRN -ASA 81 mg PO daily -CT Chest 08/19 indicating bibasilar PNA w/incidental finding of 6mm nodule in LLL -Will need f/u CT in 6 mos for nodule (4) 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 Continue abx per ID recs (6) Empyema lung ICD Codes: J86.9 - Pyothorax without fistula Status: Acute Plan: S/P interventional radiology drainage with cultures positive for MRSA. Monitor oximetry with exercise. Follow-up chest x-ray as clinically indicated -CXR 08/20 showing bibasilar PNA that could be sequela from empyema; possibly atelectasis vs PNA as lung exam is normal w/ no cough, CTAB (7) HTN (hypertension) ICD Codes: I10 - Essential (primary) hypertension Status: Chronic Plan: BP 132/70 this morning -- well controlled -Continue amlodipine 5mg PO daily -Metoprolol tartrate 50mg PO q12h -Lipitor 40mg PO daily -Hydralazine 10mg PO q8h PRN if SBP>180 OR DBP>100 (8) FEN/GI/PPx Status: Acute Plan: Fluids: PO fluids following 500ml bolus NS IVF Electrolytes: wnl; K-lyte 25meq daily Nutrition: regular basic diet GI: Famotidine 10mg PO BID PPx: Lovenox 40mg subcu daily Pain: Tylenol 650mg PO q4h pain 1-4 -Zofran 4mg PO q6h nausea (Matthew Cardona MD R1) Physician Certification 2 Midnight Certification Type: Admission for Inpatient Services Order for Inpatient Services The services are ordered in accordance with Medicare regulations or non- Medicare payer requirements, as applicable. In the case of services not specified as inpatient-only, they are appropriately provided as inpatient services in accordance with the 2-midnight benchmark. Estimated LOS (days): 2 days is the estimated time the patient will need to remain in the hospital, assuming treatment plan goals are met and no additional complications. Post-Hospital Plan: Home Health (Matthew Cardona MD R1) Problem Qualifiers (1) Anemia: Qualified Codes: D64.9 - Anemia, unspecified (2) Syncope: Qualified Codes: R55 - Syncope and collapse (3) Chest pain: Qualified Codes: R07.9 - Chest pain, unspecified (4) HTN (hypertension): Qualified Codes: I10 - Essential (primary) hypertension Matthew Cardona MD R1 Aug 22, 2017 14:44 Clementina Fowler MD Aug 24, 2017 13:23
[2017-08-22 16:39] VITALS: BP 134/60; PULSE 85; RESP 17; TEMP 98.5; O2SAT 94
[2017-08-22] MEDS ORDERED: SODIUM CHLOR 0.9% 250 ML INJ 250 ML IV ONE (16:45)
--- NOTE | 2017-08-22 16:46 | PD.CONS ---
HPI History of Present Illness This is a 57 year old male who originally presented to [facility] with c/o of headache and unilateral weakness and was found to have embolic stroke, endocarditis, PNA with abscess. He subsequently was sent to [facility] and there yesterday he had a syncopal episode and severe chest pain. Cardiology was apparently consulted and there was a normal echo. GI has been consulted for anemia. He was found to have hgb 6.7 which was drop from 08/21/17 7.7. His baseline for the last month is close to 8. Stool was neg for occult blood. he denies any black tarry stool or blood in his stool. He admits abd discomfort since his admission. His stools have been loose since his admission. His reports weight loss of 70 lbs over the last year and that he has had poor appetite. His last colonoscopy was about 4 y ago, done at [facility] by a Dr Molina and normal per pt's . he has never had an EGD. Pt is poor historian, hx obtained from EMR and pts . (Snehal Haile) PFSH Past Medical History CVA endocarditis BPH dysarthria Past Surgical History inguinal hernia repair cervical fusion lower spinal fusion prostatectomy (Snehal Haile) Coded Allergies: No Known Allergies (Verified Allergy, Unknown, 07/16/17) Family History CVA DM SC Social History no toxic habits (Snehal Haile) Review of Systems Constitutional: DENIES: Fever Endocrine: DENIES: Polydipsia Eyes: DENIES: Blurred vision Ears, nose, mouth, throat: DENIES: Hearing loss Respiratory: DENIES: Cough Cardiovascular: DENIES: Chest pain Gastrointestinal: COMPLAINS OF: Abdominal pain, Diarrhea, DENIES: Black stools , Bloody stools, Nausea, Vomiting, Difficulty Swallowing Musculoskeletal: DENIES: Muscle aches Integumentary: DENIES: Abnormal pigmentation Hematologic/lymphatic: DENIES: Bruising Immunologic/allergic: DENIES: Eczema Neurologic: COMPLAINS OF: Abnormal gait Psychiatric: DENIES: Anxiety (Snehal Haile) GI Exam Physical Examination HEENT: PERRL; normocephalic; atraumatic; no jaundice. CHEST: CTA CARDIAC: RRR ABDOMEN: Soft, protuberant, nontender; no hepatosplenomegaly; bowel sounds are present in all four quadrants. EXTREMITIES: No clubbing, cyanosis, or edema. SKIN: Normal; no rash; no jaundice. 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 pt had syncopal episode and chest pain. stool neg for occult blood, no obvious bleeding. could be multifactorial normal colonoscopy 4 y ago never had EGD - loose stool - since admission in jun. has been on mult antibx, this could be contributing factor 07/21/17 he was neg for c diff - syNcope, CP, endocarditis, MRSA bacteremia, empyema -per primary, ID was following PLAN - EGD and colonoscopy if clearance from primary team - obtain consent - clear liquids today - NPO after midnight - GoLytely - monitor HH and transfuse as needed - supportive care - notify GI of active bleeding pt seen by myself and Dr Crook and this note is written on his behalf (Snehal Haile) Plan Patient was seen and examined, agree with above Notes, we'll plan on doing upper endoscopy and colonoscopy, she clear him cardiac-cedillo to do the procedure will do it tomorrow (Ndaine Crook MD) Snehal Haile Aug 22, 2017 16:46 Nadine Crook MD Aug 22, 2017 17:52
[2017-08-22] MEDS: ACETAMINOPHEN 325 MG TAB PO PRN (17:51)
[2017-08-22] MEDS: diphenhydrAMINE HCL 25 MG CAP PO PRN (17:51)
[2017-08-22] MEDS ORDERED: PEG (High)/E-LYTE SOLN 4000 ML BTL PO ONE (18:00)
[2017-08-22 18:03] VITALS: BP 135/68; PULSE 87; RESP 12; O2SAT 97
[2017-08-22 18:19] VITALS: BP 130/60; PULSE 84; RESP 12; TEMP 98.4; O2SAT 97
[2017-08-22 18:28] VITALS: BP 127/60; PULSE 85; RESP 14; TEMP 97.5; O2SAT 98
[2017-08-22 18:53] VITALS: BP 134/65; PULSE 85; RESP 14; TEMP 97.9; O2SAT 99
[2017-08-22] MEDS: AQUAPHOR OINT 50 GM TUBE TOPICAL SCH (21:00)
[2017-08-22] MEDS ORDERED: SODIUM CHLORIDE 0.9% FLUSH 10 ML FLUSH IV FLUSH SCH (21:00)
[2017-08-22] MEDS: SODIUM CHLORIDE 0.9% FLUSH 10 ML FLUSH IV FLUSH SCH (22:23)
[2017-08-22] MEDS: DOCUSATE SODIUM 50 MG/SENNA 8.6 MG TAB PO SCH (22:23)
[2017-08-22] MEDS: FAMOTIDINE 20 MG TAB PO SCH (22:23)
[2017-08-22] MEDS: METOPROLOL TARTRATE 50 MG TAB PO SCH (22:23)
[2017-08-22 22:51] LABS: HEMATOCRIT 23.8 % (39.0-51.0); HEMOGLOBIN 8.1 GM/DL (13.0-17.0)
[2017-08-23] VITALS (10 sets, daily range): BP systolic 97–150; BP diastolic 56–76; PULSE 71–90; RESP 16–19; TEMP 97.5–98.9; O2SAT 94–100
[2017-08-23] MEDS: diphenhydrAMINE HCL 25 MG CAP PO PRN (01:06)
[2017-08-23] MEDS: ACETAMINOPHEN 325 MG TAB PO PRN (01:06)
[2017-08-23 06:54] LABS: ALBUMIN 2.5 GM/DL (3.4-5.0); AST (GOT) 20 U/L (15-37); BICARBONATE 25.2 MEQ/L (21.0-32.0); BLOOD UREA NITROGEN 12 MG/DL (7-18); CALCIUM 8.7 MG/DL (8.5-10.1); CHLORIDE 103 MEQ/L (98-107); CREATININE 1.04 MG/DL (0.60-1.30); GLOMERULAR FILTRATION RATE 89 ML/MIN (>89); GLUCOSE,RANDOM 72 MG/DL (74-106); SODIUM (NA) 138 MEQ/L (136-145)
[2017-08-23 06:55] LABS: ALT (GPT) 28 U/L (12-78)
[2017-08-23 06:57] LABS: ALKALINE PHOSPHATASE 81 U/L (45-117); TOTAL BILIRUBIN ADULT 1.4 MG/DL (0.2-1.0)
[2017-08-23] MEDS: ASPIRIN 81 MG CHEW TAB CHEW SCH (07:48)
[2017-08-23] MEDS: POTASSIUM CHLORIDE 25 MEQ EFFERVESCENT TAB PO SCH ×2 (07:52→07:54)
[2017-08-23] MEDS: SODIUM CHLORIDE 0.9% FLUSH 10 ML FLUSH IV FLUSH SCH ×2 (07:52→21:36)
[2017-08-23] MEDS: AQUAPHOR OINT 50 GM TUBE TOPICAL SCH ×2 (07:52→21:36)
[2017-08-23] MEDS: METOPROLOL TARTRATE 50 MG TAB PO SCH ×2 (07:53→21:36)
[2017-08-23] MEDS: amLODIPine BESYLATE 5 MG TAB PO SCH (07:53)
[2017-08-23] MEDS: DOCUSATE SODIUM 50 MG/SENNA 8.6 MG TAB PO SCH ×2 (07:53→21:36)
[2017-08-23] MEDS: FAMOTIDINE 20 MG TAB PO SCH ×2 (07:53→21:36)
--- NOTE | 2017-08-23 09:37 | PD.PROCEDR ---
GI Procedure PROCEDURE PERFORMED upper endoscopy with Bx, incomplete colonoscopy INDICATION FOR PROCEDURE anemia, possible GI bleed PROCEDURE: The procedure, risks and benefits were discussed with Mr. Mcintosh and informed consent was obtained. Anesthesia sedated him with Diprivan. He was placed in the left lateral decubitus position. EGD: The Pentax videoscope was introduced through the oropharynx and advanced to the second portion of the duodenum under direct visualization. Retroflexion was performed in the stomach. Biopsy from the ampulla, and from the antrum Colonoscopy: The Pentax videoscope was introduced through the rectum and advanced to sigmoid , unable to go beyond this area because significant amount of stool. Retroflexion was performed in the rectum. Colonic prep was poor ESTIMATED BLOOD LOSS: None SPECIMENS REMOVED: Antrum Ampulla COMPLICATIONS: None IMPRESSION: Prominent ampulla biopsy was done Duodenitis Gastritis biopsy from the antrum Poor prep unable to go beyond sigmoid PLAN: No NSAIDs Follow-up biopsy Monitor H&H Repeat prep Colonoscopy in the morning Clear liquid Nadine Crook MD Aug 23, 2017 09:37
[2017-08-23] MEDS ORDERED: DO NOT ADM ANY ANTICOAGULANT DRUGS PRN (09:40)
--- NOTE | 2017-08-23 09:40 | HHI.GIFU ---
Subjective Remarks Patient is laying in bed comfortably, not very conversational, he said he took the prep, no sign of active bleeding to having brown stool Objective Vitals I&O Vital Signs Date Time Temp Pulse Resp B/P (MAP) Pulse Ox O2 Delivery O2 Flow Rate FiO2 08/23/17 08:00 80 08/23/17 08:00 97.5 80 19 150/76 (100) 94 08/23/17 03:40 97.5 78 16 134/64 100 08/23/17 02:06 98.1 74 18 148/68 96 08/23/17 01:15 98.1 76 18 145/65 98 08/23/17 00:00 98.1 75 18 123/56 (78) 99 08/22/17 18:53 97.9 85 14 134/65 99 08/22/17 18:28 97.5 85 14 127/60 98 08/22/17 18:19 98.4 84 12 130/60 97 08/22/17 18:03 87 12 135/68 97 08/22/17 16:39 98.5 85 17 134/60 (84) 94 I/O 08/22/17 08/22/17 08/22/17 08/23/17 08/23/17 08/23/17 07:00 15:00 23:00 07:00 15:00 23:00 Intake Total 410 ml 400 ml Balance 410 ml 400 ml Intake Packed Cells 400 ml 400 ml Blood Product IV Normal Saline Flush 10 ml # Voids 3 # Bowel Movements 3 Laboratory Laboratory Tests Test 08/22/17 22:10 08/23/17 06:05 Hemoglobin 8.1 Hematocrit 23.8 Blood Urea Nitrogen 12 Creatinine 1.04 Random Glucose 72 Total Protein 8.0 Albumin 2.5 Calcium Level 8.7 Alkaline Phosphatase 81 Aspartate Amino Transf (AST/SGOT) 20 Alanine Aminotransferase (ALT/SGPT) 28 Total Bilirubin 1.4 Sodium Level 138 Potassium Level 3.9 Chloride Level 103 Carbon Dioxide Level 25.2 Anion Gap 10 Estimat Glomerular Filtration Rate 89 Physical Exam HEENT: Pupils round and reactive to light; normocephalic; atraumatic; no jaundice. Throat is clear. NECK: Neck is supple, no JVD, no lymphadenopathy. CHEST: Chest is clear to auscultation and percussion. CARDIAC: Regular rate and rhythm with no murmur gallop or rubs. ABDOMEN: Soft, nondistended, nontender; no hepatosplenomegaly; bowel sounds are present in all four quadrants. EXTREMITIES: No clubbing, cyanosis, or edema. SKIN: Normal; no rash; no jaundice. 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 Assessment and Plan Plan Patient was seen and examined, agree with above Notes, patient has heme negative stool, hemoglobin stable today, May need to be considered for hematology consult if there is no source of active bleeding, patient had incomplete colonoscopy and endoscopy today IMPRESSION: Prominent ampulla biopsy was done Duodenitis Gastritis biopsy from the antrum Poor prep unable to go beyond sigmoid PLAN: No NSAIDs Follow-up biopsy Monitor H&H Repeat prep Colonoscopy in the morning Clear liquid Nadine Crook MD Aug 23, 2017 09:40
[2017-08-23] MEDS: DAPTOmycin INJ 750 MG in SODIUM CHLORIDE 0.9% INJ 100 ML IV SCH (11:46)
[2017-08-23] MEDS ORDERED: PROPOFOL 200 MG/20 ML AMP IV ONE (12:00)
[2017-08-23] MEDS ORDERED: LIDOCAINE HCL 1% PF 5 ML SYRINGE OTHER ONE (12:00)
[2017-08-23] MEDS ORDERED: ENOXAPARIN SODIUM 40 MG/0.4 ML SYRINGE SQ SCH (13:00)
--- NOTE | 2017-08-23 13:23 | HHI.HP ---
[facility] Service Family Medicine Primary Care Physician Phil Polanco DO Admission Diagnosis anemia Diagnoses: (1) Anemia Diagnosis: Principal (2) Syncope Diagnosis: Principal (3) Chest pain Diagnosis: Principal (4) Endocarditis of mitral valve Diagnosis: Principal (5) Bacteremia due to methicillin resistant Staphylococcus aureus Diagnosis: Principal (6) Empyema lung Diagnosis: Principal (7) HTN (hypertension) Diagnosis: Principal (8) FEN/GI/PPx Diagnosis: Principal International Travel<30 Days: No Contact w/Intl Traveler<30days: No Known Affected Area: No History of Present Illness Mr Mcintosh is a 57YO male w/PMHx of BPH s/p prostatectomy in 05/2017, left-sided hemiparesis, and MRSA endocarditis who is transferring back from [facility] due to symptomatic anemia with Hgb 6.7 morning. After the abnormal Hgb was noted the pt complained of being lightheaded and HOB was made flat by nurse. Nursing notes he has not had a BM in several days and has been given a laxative that has decreased his lightheadedness. Pt more recently complained of "sawing CP" on 08/19 before an episode of syncope. He was doing exercises with PT when he complained of CP and then became unresponsive for 1-2 minutes before opening his eyes and responding to commands. Pt, who is not a good historian but reports CP was 10/10 on pain scale with some possible radiation toward his left shoulder. Denies any feeling of radiating toward his back. A Halicat was called at 1150AM that day and nitroglycerin was administered at 1206 PM that aborted pt 's CP. Today, pt denies CP, SOB, nausea, diaphoresis, vomiting, diarrhea, or abdominal pain but felt like his abdomen was "tight". Cardiology had been consulted to see him following the syncopal episode that produced a normal ECHO study. Dr Kruger, ID, is following pt for ongoing tx for MRSA endocarditis that completed zyxox yesterday on 08/21 and is continuing with daptomycin until . He was given the prep but is baseline with some cognitive deficits and was not adequately "cleaned out" so his scope will be repeated tomorrow. There has not been any obvious GI bleed. He has been on some meds that can cause anemia but now is on daptomycin which can cause thrombocytopenia but not anemia. When looking back over his past history, his H/H was normal until February of 2017. he had a surgery done and multiple problems related to his prostate. His H/H was lower than his prior baseline but stable until his recent very low level prompting the transfusions and GI consult. Based on the workup done so far, his smear looked like either thalassemia or Fe deficiency. He has normal hemoglobin, however so he does not have sickle cell or thalassemia based on that. His TIBC is low. His Fe and saturations are in the normal range. Considering his surgery, the endocarditis, all the blood he has had drawn off, etc. He could be Fe deficient from these other reasons but a GI workup is a good idea in any anemic Fe deficient adult. If that is fine, then he should be given Fe and a CBC rechecked. Heme can be consulted if he does not improve as all of his anemia is since he had his recent illnesses. Review of Systems ROS Limitations: Poor Historian Other not able to give any good history at all Constitutional: COMPLAINS OF: Fatigue (nursing reports he was lethargic yesterday), Dizziness, DENIES: Fever, Weight gain, Weight loss, Chills Eyes: DENIES: Blurred vision, Diplopia Ears, nose, mouth, throat: DENIES: Hearing loss, Nasal discharge, Throat pain, Hoarseness Respiratory: DENIES: Cough, Wheezing, Shortness of breath Cardiovascular: DENIES: Chest pain, Palpitations Gastrointestinal: COMPLAINS OF: Abdominal pain (abdominal feeling of "tightness "), DENIES: Black stools, Bloody stools, Constipation, Diarrhea, Nausea, Vomiting Genitourinary: DENIES: Dysuria Musculoskeletal: DENIES: Joint pain, Muscle aches Integumentary: DENIES: Pruritus, Rash Neurologic: DENIES: Headache, Seizures Past Family Social History Past Medical History MRSA endocarditis BPH neuropathy Dysarthria Past Surgical History cervical spine fusion-- after a fall in 2002 lower spinal fusion 2 yrs ago prostatectomy, May 2017 Allergies: Coded Allergies: No Known Allergies (Verified Allergy, Unknown, 07/16/17) Family History Father- stroke Mother-heart disease, DM Sister-heart attack Social History Lives in home with brother and is disabled Denies smoking, alcohol or illicit drug use Physical Exam Vital Signs Vital Signs Date Time Temp Pulse Resp B/P (MAP) Pulse Ox O2 Delivery O2 Flow Rate FiO2 08/23/17 12:00 98.0 74 18 131/65 (87) 96 08/23/17 09:52 97.5 78 18 102/56 (71) 94 08/23/17 08:00 80 08/23/17 08:00 97.5 80 19 150/76 (100) 94 08/23/17 03:40 97.5 78 16 134/64 100 08/23/17 02:06 98.1 74 18 148/68 96 08/23/17 01:15 98.1 76 18 145/65 98 08/23/17 00:00 98.1 75 18 123/56 (78) 99 08/22/17 18:53 97.9 85 14 134/65 99 08/22/17 18:28 97.5 85 14 127/60 98 08/22/17 18:19 98.4 84 12 130/60 97 08/22/17 18:03 87 12 135/68 97 08/22/17 16:39 98.5 85 17 134/60 (84) 94 Physical Exam GENERAL: This is a well-nourished, well-developed patient lying in bed who appears pale and tired. SKIN: No rashes, ecchymoses or lesions. Cool and dry. HEAD: Atraumatic. Normocephalic. No temporal or scalp tenderness. EYES: Pupils equal round and reactive. Extraocular motions intact. No scleral icterus. No injection or drainage. ENT: Nose without bleeding or drainage. Throat without erythema, tonsillar hypertrophy or exudate. Uvula midline. Airway patent. NECK: Trachea midline. No JVD or lymphadenopathy. Supple, nontender, no meningeal signs. CARDIOVASCULAR: Regular rate and rhythm without murmurs, gallops, or rubs. RESPIRATORY: Clear to auscultation. Breath sounds equal bilaterally. No wheezes , rales, or rhonchi. GASTROINTESTINAL: Abdomen soft, non-tender, nondistended. No hepato-splenomegaly , or palpable masses. No guarding. MUSCULOSKELETAL: Extremities without clubbing, cyanosis, or edema. No joint tenderness, effusion, or edema noted. No calf tenderness. NEUROLOGICAL: Awake and alert. Cranial nerves II through XII intact. Slow speech. Laboratory Laboratory Tests Test 08/22/17 22:10 08/23/17 06:05 Hemoglobin 8.1 Hematocrit 23.8 Blood Urea Nitrogen 12 Creatinine 1.04 Random Glucose 72 Total Protein 8.0 Albumin 2.5 Calcium Level 8.7 Alkaline Phosphatase 81 Aspartate Amino Transf (AST/SGOT) 20 Alanine Aminotransferase (ALT/SGPT) 28 Total Bilirubin 1.4 Sodium Level 138 Potassium Level 3.9 Chloride Level 103 Carbon Dioxide Level 25.2 Anion Gap 10 Estimat Glomerular Filtration Rate 89 Result Diagram: 08/22/17220908/23/17 0605 Caprini VTE Risk Assessment Caprini VTE Risk Assessment: Mod/High Risk (score >= 2) Caprini Risk Assessment Model Point Value = 1 Point Value = 2 Point Value = 3 Point Value = 5 Age 41-60 Minor surgery BMI > 25 kg/m2 Swollen legs Varicose veins or History of unexplained or recurrent spontaneous Oral contraceptives or hormone replacement Sepsis (< 1 month) Serious lung disease, including pneumonia (< 1 month) Abnormal pulmonary function Acute myocardial infarction Congestive heart failure (< 1 month) History of inflammatory bowel disease Medical patient at bed rest Age 61-74 Arthroscopic surgery Major open surgery (> 45 min) Laparoscopic surgery (> 45 min) Malignancy Confined to bed (> 72 hours) Immobilizing plaster cast Central venous access Age >= 75 History of VTE Family history of VTE Factor V Leiden Prothrombin [id number] Lupus anticoagulant Anticardiolipin antibodies Elevated serum homocysteine Heparin-induced thrombocytopenia Other congenital or acquired thrombophilia Stroke (< 1 month) Elective arthroplasty Hip, pelvis, or leg fracture Acute spinal cord injury (< 1 month) Prophylaxis Regimen Total Risk Factor Score Risk Level Prophylaxis Regimen 0-1 Low Early ambulation 2 Moderate Order ONE of the following: *Sequential Compression Device (SCD) *Heparin 5000 units SQ BID 3-4 Higher Order ONE of the following medications: *Heparin 5000 units SQ TID *Enoxaparin/Lovenox 40 mg SQ daily (WT < 150 kg, CrCl > 30 mL/min) *Enoxaparin/Lovenox 30 mg SQ daily (WT < 150 kg, CrCl > 10-29 mL/min) *Enoxaparin/Lovenox 30 mg SQ BID (WT < 150 kg, CrCl > 30 mL/min) AND/OR *Sequential Compression Device (SCD) 5 or more Highest Order ONE of the following medications: *Heparin 5000 units SQ TID (Preferred with Epidurals) *Enoxaparin/Lovenox 40 mg SQ daily (WT < 150 kg, CrCl > 30 mL/min) *Enoxaparin/Lovenox 30 mg SQ daily (WT < 150 kg, CrCl > 10-29 mL/min) *Enoxaparin/Lovenox 30 mg SQ BID (WT < 150 kg, CrCl > 30 mL/min) AND *Sequential Compression Device (SCD) Assessment and Plan Assessment and Plan Mr Mcintosh is a 57YO male with PMHx BPH s/p prostatectomy, urinary retention requiring an indwelling suprapubic cath from May 2017 to 08/09/17, embolic CVA, MRSA endocarditis undergoing IV antibiotic therapy, and at [place] [facility] who experienced an episode of syncope preceded by tearing CP. ID is consulted for abx management. Cardiology consulted as well for syncope workup. He is a very poor historian so it is difficult to tell what caused the syncopal episode. the only new finding is the q waves. 08/22 late morning pt became acutely lightheaded; Hgb this morning 6.7; on exam, pt experiencing no CP, no other pain, no SOB, but abdomen "feels" tight to pt, but no guarding, tympany, rebound -Type and screen -Transfuse 2u PRBCs -GI consulted -Keep HOB flat -Frequent VS -Continue daptomycin as per ID orders Problem List: (1) Anemia ICD Codes: D64.9 - Anemia, unspecified Status: Chronic Plan: Pt with persistent anemia with Hgb <9.0 since 01/22, and Hgb <13.0 since ; today Hgb 6.7 and symptomatic -Type and screen -Transfusing 2u PRBCs -F/u H&H at 8PM -FOBT 08/20 negative -GI consulted--appreciate recs -Daily CBC==transfuse if Hgb<7.0 or if pt symptomatic -Iron study rehab stay showing low normal Iron, low TIBC but normal saturation -MCV 66-68 less suggestive of anemia of chronic disease -Path blood smear suggests WES vs thalassemia -Hgb electrophoresis normal -Zyvox treatment completed 08/21; Daptomycin continuing until 09/01 -he could be Fe deficient from his surgeries and blood draws as this started late Feb 2017 after surgery -once he is taking po can start Fe and recheck CBC as an outpt Zyvox can cause anemia but he is off that now (2) Syncope ICD Codes: R55 - Syncope and collapse Status: Acute Plan: Pt with new onset syncope while working with PT on 08/19 -Cardiology consulted--appreciate recs -ECHO with EF50-55%, mild mitral valve regurg, mild-moderate left atrial dilation, mild right atrial dilation -EKG showing possible inferior infarct between May 2017 and present as new q waves are present in all 3 leads -Troponin <0.02 -Carotid artery US negative -ASA 325mg PO given --> now ASA 81mg PO daily -Hgb 6.7--transfusing as per above; follow with daily CBC (3) Chest pain ICD Codes: R07.9 - Chest pain, unspecified Status: Resolved Plan: Tearing CP while working with PT; resolved with nitroglycerin once; consider angina vs pleural pain vs other etiology; has been asymptomatic since -Nitroglycerin paste 0.5 inch q8h PRN. 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 Continue abx per ID recs (6) Empyema lung ICD Codes: J86.9 - Pyothorax without fistula Status: Acute Plan: S/P interventional radiology drainage with cultures positive for MRSA. Monitor oximetry with exercise. Follow-up chest x-ray as clinically indicated -CXR 08/20 showing bibasilar PNA that could be sequela from empyema; possibly atelectasis vs PNA as lung exam is normal w/ no cough, CTAB (7) HTN (hypertension) ICD Codes: I10 - Essential (primary) hypertension Status: Chronic Plan: BP 132/70 this morning -- well controlled -Continue amlodipine 5mg PO daily -Metoprolol tartrate 50mg PO q12h -Lipitor 40mg PO daily -Hydralazine 10mg PO q8h PRN if SBP>180 OR DBP>100 (8) FEN/GI/PPx Status: Acute Plan: Fluids: PO fluids following 500ml bolus NS IVF Electrolytes: wnl; K-lyte 25meq daily Nutrition: regular basic diet GI: Famotidine 10mg PO BID PPx: Lovenox 40mg subcu daily, hold for procedures. stopped for now as he will likely get colonoscopy tomorrow Pain: Tylenol 650mg PO q4h pain 1-4 -Zofran 4mg PO q6h nausea Problem Qualifiers (1) Anemia: Qualified Codes: D64.9 - Anemia, unspecified (2) Syncope: Qualified Codes: R55 - Syncope and collapse (3) Chest pain: Qualified Codes: R07.9 - Chest pain, unspecified (4) HTN (hypertension): Qualified Codes: I10 - Essential (primary) hypertension Clementina Fowler MD Aug 23, 2017 13:23
[2017-08-23] MEDS ORDERED: MAGNESIUM CITRATE SOLN 300 ML BTL PO ONE ×2 (16:00→21:00)
--- NOTE | 2017-08-23 18:15 | MB ---
cc: Todd Kruger MD DATE OF CONSULT: 08/23/2017 HISTORY OF PRESENT ILLNESS: Endy Mcintosh is a very pleasant 57-year-old gentleman who had a CVA who was in [facility]. I consulted on him there due to episodes of syncope. He was transferred back to the [facility] yesterday due to drop in hemoglobin to 6.7. The patient is just completing rehab therapy at the bedside. His therapist notes that he had no chest pain, shortness of breath, or dizziness during therapy. Patient appears comfortable in no acute distress. He is dysarthric. Denied any chest pain, fevers, chills, cough, or GI bleeding, PND, orthopnea, or dizziness. He had a 2D echo on 08/19/2017, which showed an EF of 50-55%, mild MR. Carotid ultrasound 08/20/2017: Mild atherosclerotic disease in carotid bulbs bilaterally, antegrade flow in the vertebral arteries. Chest CT 08/20/2017: Bibasilar pneumonia, 6 mm nodule in the left lower lobe, malignancy is not excluded. Head CT 08/19/2017: Stable, negative for acute process. He is currently being followed by endocarditis and completed on 08/21/2017. Continue with daptomycin. It is noted in the chart that he has complained of some tightness in his abdomen. PAST MEDICAL HISTORY: Per history of present illness. Past medical history also includes BPH, neuropathy, dysarthria, cervical spine fusion 2002, lower spinal fusion 2 years ago, prostatectomy. MEDICATIONS IN THE HOSPITAL: Lovenox 40 subcu q. 24 hours, magnesium citrate, daptomycin, amlodipine 5 mg daily, aspirin 81 mg daily, metoprolol 50 q. 12 hours, Pepcid 20 mg b.i.d.. PHYSICAL EXAMINATION: VITAL SIGNS: Blood pressure 131/65, pulse 74, respiratory rate 18, temperature 98.0. GENERAL: He is alert and oriented x3, in no acute distress. NECK: Supple. No JVD. No bruit. CARDIOVASCULAR: S1, S2. No murmurs, rubs, or gallops. LUNGS: Clear to auscultation bilaterally. ABDOMEN: Soft, nontender, nondistended with positive bowel sounds. EXTREMITIES: No extremity edema. LABORATORY DATA: On 08/22/2017, hemoglobin 8.1, hematocrit 23.8. Today, sodium 138, potassium 3.9, chloride 103, bicarb 25.2, BUN 12, creatinine 1.104, total bilirubin was 1.4. DIAGNOSES: He has the followin. Anemia. 2. Syncope. 3. Cerebrovascular accident. 4. Endocarditis. 5. Elevated total bilirubin. 6. Dysarthria. DISCUSSION: At this point in time, there does not appear to be an obvious cardiovascular etiology to the patient's syncope, suspected it is related to his previous CVA and severe anemia. His blood pressure is currently controlled on Norvasc. He is also on aspirin. Given his unstable hemoglobin and recent CVA and endocarditis, would definitely treat him medically. Recommend telemetry monitoring. We will continue to follow. MD FILIBERTO Durham/cc , 01:11 PM , 06:13 PM
--- NOTE | 2017-08-23 20:49 | PD.ID.CON ---
History of Present Illness Service ID Consult Requested By Dr Cardona Reason for Consult MRSA L lung abscess Primary Care Physician Phil Polanco DO Diagnoses: History of Present Illness seen , examined full note to follow Pt known to me from previous admission 57 yo male , when he presented with L upper chest area x 2 months, high grade fever nearly up to 103 and left upper and lower extremity weakness and pain. Pt has a suprapubic catheter put in and prostate surgery done about a month ago by Dr. Patel. Pt has persistent high grade MRSA bacteremia and ALEX showed mitral valve endocarditis CT showed Complex loculated 5.9 cm fluid attenuation area at the left lung apex most characteristic of an abscess with extension into the extrathoracic soft tissues superiorly and extending supraclavicular with locules of air present in the supraclavicular region and within the chest lesion. Sp CT guided drainage of L apex empyema He was switched to daptomycin after clinically failing vancomycin and appear to clear bacteremia eventually on daptmycin+ zyvox He was doing good, repeat CT on 08/20 did not show any cavitary lesion Zyvox was stopped, pt is continued on daptomycin thru mid- August He cont to c/o persistent L shpoulder pain Blood clx remain negative Pt was transferred back to the hospital to work up new mycrocytic anemia No fever Normal WBC Review of Systems Except as stated in HPI: all other systems reviewed are Neg Past Family Social History Allergies: Coded Allergies: No Known Allergies (Verified Allergy, Unknown, 07/16/17) Past Medical History BPH neuropathy Past Surgical History cervical spine fusion-- after a fall in 2002 lower spinal fusion 2 yrs ago prostatectomy, May 2017 Active Ordered Medications Medications where reviewed in EMR Antibiotics Include: daptomycin Family History Family History Father- stroke Mother-heart disease, DM Sister-heart attack Social History -lives in home with brother - disable -Denies smoking, alcohol or illicit drug use Physical Exam Vital Signs Vital Signs Date Time Temp Pulse Resp B/P (MAP) Pulse Ox O2 Delivery O2 Flow Rate FiO2 08/23/17 16:07 90 08/23/17 16:00 97.6 89 18 97/58 (71) 96 08/23/17 12:03 71 08/23/17 12:00 98.0 74 18 131/65 (87) 96 08/23/17 09:52 97.5 78 18 102/56 (71) 94 08/23/17 08:00 80 08/23/17 08:00 97.5 80 19 150/76 (100) 94 08/23/17 03:40 97.5 78 16 134/64 100 08/23/17 02:06 98.1 74 18 148/68 96 08/23/17 01:15 98.1 76 18 145/65 98 08/23/17 00:00 98.1 75 18 123/56 (78) 99 Physical Exam CONSTITUTIONAL/GENERAL: This is an adequately nourished patient, in no apparent distress. TUBES/LINES/DRAINS: SKIN: No jaundice, rashes, or lesions. Skin temperature appropriate. Not diaphoretic. HEAD: Atraumatic. Normocephalic. EYES: Pupils equal and round and reactive. Extraocular motions intact. No scleral icterus. No injection or drainage. Fundi not examined. ENT: Hearing grossly normal. Nose without bleeding or purulent drainage. Throat without visible erythema, exudates, masses, or lesions. NECK: Trachea midline. Supple, nontender. CARDIOVASCULAR: Regular rate and rhythm without murmurs, gallops, or rubs. No JVD. Peripheral pulses symmetric. RESPIRATORY/CHEST: Symmetric, unlabored respirations. Breath sounds equal bilaterally. Scattered L base rhonchi. GASTROINTESTINAL: Abdomen soft, non-tender, nondistended. No hepato-splenomegaly , or palpable masses. No guarding. Bowel sounds present. GENITOURINARY: Without palpable bladder distension. SP catheter in place with cloudy and blood tinged urine MUSCULOSKELETAL: Extremities without clubbing, cyanosis, no 1 edema. No joint tenderness or effusion noted. No calf tenderness. No mottling or clubbing. LYMPHATICS: No palpable cervical or supraclavicular adenopathy. NEUROLOGICAL: Awake and alert. Motor and sensory grossly within normal limits. Follows commands. Speech is clear LUE weakness near full ROM in L shoulder PSYCHIATRIC: No obvious anxiety/depression. no apparent hallucinations or other psychotic thought process. Laboratory Laboratory Tests Test 08/06/17 06:45 White Blood Count 7.6 Red Blood Count 3.68 Hemoglobin 8.1 Hematocrit 25.1 Mean Corpuscular Volume 68.4 Mean Corpuscular Hemoglobin 22.0 Mean Corpuscular Hemoglobin Concent 32.2 Red Cell Distribution Width 23.7 Platelet Count 224 Mean Platelet Volume 8.3 Neutrophils (%) (Auto) 51.9 Lymphocytes (%) (Auto) 34.2 Monocytes (%) (Auto) 7.1 Eosinophils (%) (Auto) 2.9 Basophils (%) (Auto) 3.9 Neutrophils # (Auto) 3.9 Lymphocytes # (Auto) 2.6 Monocytes # (Auto) 0.5 Eosinophils # (Auto) 0.2 Basophils # (Auto) 0.3 CBC Comment DIFF FINAL Differential Comment Blood Urea Nitrogen 23 Creatinine 1.65 Random Glucose 76 Calcium Level 8.9 Sodium Level 135 Potassium Level 4.0 Chloride Level 106 Carbon Dioxide Level 18.5 Anion Gap 11 Estimat Glomerular Filtration Rate 52 Iron Level 77 Total Iron Binding Capacity 241 Percent Iron Saturation 32.0 Total Creatine Kinase 168 Date/Time Source Procedure Growth Status 08/01/17 04:30 Urine Catheterized Urine Urine Culture - Final NO GROWTH IN 48 HOURS. Complete Result Diagram: 08/06/17 0645 08/06/17 0645 [Image 1] Imaging Last Impressions Head CT 08/06/17 0000 Signed Impressions: Service Date/Time: Sunday, August 06, 2017 17:11 - CONCLUSION: Normal examination. Jorge Hooker Jr., MD Laboratory Laboratory Tests Test 08/22/17 22:10 08/23/17 06:05 Hemoglobin 8.1 Hematocrit 23.8 Blood Urea Nitrogen 12 Creatinine 1.04 Random Glucose 72 Total Protein 8.0 Albumin 2.5 Calcium Level 8.7 Alkaline Phosphatase 81 Aspartate Amino Transf (AST/SGOT) 20 Alanine Aminotransferase (ALT/SGPT) 28 Total Bilirubin 1.4 Sodium Level 138 Potassium Level 3.9 Chloride Level 103 Carbon Dioxide Level 25.2 Anion Gap 10 Estimat Glomerular Filtration Rate 89 Result Diagram: 08/22/17 2210 08/23/17 0605 Assessment and Plan Assessment and Plan MRSA mitral valvve endocarditis with embolic brain lesions and 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
[2017-08-24] VITALS: BP 140/65; PULSE 73; PULSE 75; RESP 16; TEMP 98.1; O2SAT 97
[2017-08-24 04:00] VITALS: BP 128/66; PULSE 85; RESP 17; TEMP 97.7; O2SAT 95
[2017-08-24] MEDS ORDERED: POVIDONE IODINE 5% (ANTISEPSIS KIT) 4 APPLICATIONS EACH NARE PRN (05:00)
[2017-08-24] MEDS ORDERED: LACTATED RINGER'S 1000 ML IV PRN (05:00)
[2017-08-24] MEDS ORDERED: SODIUM CHLORID 0.9% 500 ML IV PRN (05:00)
[2017-08-24] MEDS ORDERED: CHLORHEXIDINE GLUCONATE 2 % 1 PACK (2 CLOTHS) TOPICAL PRN (05:00)
[2017-08-24] MEDS ORDERED: ENOXAPARIN SODIUM 40 MG/0.4 ML SYRINGE SQ SCH (05:00)
[2017-08-24 07:13] LABS: AUTOMATED NEUTROPHIL # 5.8 TH/MM3 (1.8-7.7); BASOPHIL % 0.4 % (0.0-2.0); EOSINOPHIL # 0.7 TH/MM3 (0-0.4); EOSINOPHIL % 7.5 % (0.0-4.0); HEMATOCRIT 28.2 % (39.0-51.0); HEMOGLOBIN 9.8 GM/DL (13.0-17.0); LYMPH % 22.9 % (9.0-44.0); LYMPHOCYTE # 2.3 TH/MM3 (1.0-4.8); MEAN CELL VOLUME 69.2 FL (80.0-100.0); MEAN CORPUSCULAR HEMOGLOBIN 24.1 PG (27.0-34.0); MEAN CORPUSCULAR HGB CONC 34.8 % (32.0-36.0); MEAN PLATELET VOLUME 8.1 FL (7.0-11.0); MONO % 10.4 % (0.0-8.0); NEUT % 58.8 % (16.0-70.0); PLATELET COUNT 237 TH/MM3 (150-450); RED BLOOD COUNT 4.08 MIL/MM3 (4.50-5.90); RED CELL DISTRIBUTION WIDTH 25.9 % (11.6-17.2); WHITE BLOOD COUNT 9.9 TH/MM3 (4.0-11.0)
[2017-08-24 07:28] LABS: BICARBONATE 28.9 MEQ/L (21.0-32.0); CALCIUM 8.6 MG/DL (8.5-10.1)
[2017-08-24 08:00] VITALS: BP 144/67; PULSE 83; RESP 18; TEMP 97.9; O2SAT 98
[2017-08-24] MEDS: METOPROLOL TARTRATE 50 MG TAB PO SCH ×2 (09:00→22:45)
[2017-08-24] MEDS: DOCUSATE SODIUM 50 MG/SENNA 8.6 MG TAB PO SCH ×2 (09:00→22:45)
[2017-08-24] MEDS: POTASSIUM CHLORIDE 25 MEQ EFFERVESCENT TAB PO SCH (09:00)
[2017-08-24] MEDS: AQUAPHOR OINT 50 GM TUBE TOPICAL SCH ×2 (09:00→22:46)
[2017-08-24] MEDS: amLODIPine BESYLATE 5 MG TAB PO SCH (09:00)
[2017-08-24] MEDS: FAMOTIDINE 20 MG TAB PO SCH ×2 (09:50→22:45)
[2017-08-24] MEDS: SODIUM CHLORIDE 0.9% FLUSH 10 ML FLUSH IV FLUSH SCH ×2 (09:50→22:45)
[2017-08-24] MEDS: ASPIRIN 81 MG CHEW TAB CHEW SCH (09:50)
--- NOTE | 2017-08-24 11:36 | HHI.FPPN ---
Subjective Remarks Patient seen and examined this morning. Temperature 97.9, pulse 83, respiratory rate 18, blood pressure 144/67, pulse ox 98. Not very communicative with the team. Shakes his head to answer questions occasionally, does not speak during exam. Denied any pain. Reports that he did not sleep well during the night. Otherwise no other major complaints obtained from him. Plan today is for repeat colonoscopy due to poor prep on last attempt yesterday. (Win Lima MD, R3) Objective Vitals Vital Signs Date Time Temp Pulse Resp B/P (MAP) Pulse Ox O2 Delivery O2 Flow Rate FiO2 08/24/17 08:00 97.9 83 18 144/67 (92) 98 08/24/17 04:00 97.7 85 17 128/66 (86) 95 08/24/17 00:00 98.1 75 16 140/65 (90) 97 08/24/17 00:00 73 08/23/17 20:00 98.9 88 16 124/75 (91) 96 08/23/17 20:00 82 08/23/17 16:07 90 08/23/17 16:00 97.6 89 18 97/58 (71) 96 08/23/17 12:03 71 08/23/17 12:00 98.0 74 18 131/65 (87) 96 I/O 08/23/17 08/23/17 08/23/17 08/24/17 08/24/17 08/24/17 07:00 15:00 23:00 07:00 15:00 23:00 Intake Total 400 ml 300 ml 1000 ml Output Total 4 ml Balance 400 ml 300 ml 996 ml Intake Oral 1000 ml IV Total 100 ml Packed Cells 400 ml Other 200 ml Output Urine Total 4 ml # Voids 3 3 # Bowel Movements 3 1 2 4 (Win Lima MD, R3) Result Diagram: 08/24/17 0620 08/24/17 0620 Objective Remarks GEN: Well-developed, well-nourished patient. No acute distress. CV: Regular rate and rhythm without obvious murmurs LUNGS: Clear to auscultation bilaterally. Normal respiratory effort. No wheezes , rales, rhonchi. GI: Soft, nontender, nondistended. No palpable masses. Bowel sounds WNL. EXT: No edema. NEURO/PSYCH: Afocal. Awake, alert, and oriented x3. Appropriate insight and judgment. Medications and IVs Current Medications Medications (Trade) Dose Ordered Sig/Briseyda Route Start Time Stop Time Status Last Admin (NS Flush) 2 ml UNSCH PRN IV FLUSH 08/22/17 12:00 (NS Flush) 2 ml BID IV FLUSH 08/22/17 21:00 08/24/17 09:50 (Tylenol) 650 mg Q4H PRN PO 08/22/17 12:00 (Narcan Inj) 0.4 mg UNSCH PRN IV PUSH 08/22/17 12:00 (Lucía-Colace) 1 tab BID PO 08/22/17 21:00 08/23/17 21:36 (Milk Of Magnesia Liq) 30 ml Q12H PRN PO 08/22/17 12:00 08/23/17 06:10 (Senokot) 17.2 mg Q12H PRN PO 08/22/17 12:00 (Dulcolax Supp) 10 mg DAILY PRN RECTAL 08/22/17 12:00 (Lactulose Liq) 30 ml DAILY PRN PO 08/22/17 12:00 08/23/17 06:10 Daptomycin 750 mg/ Sodium Chloride 100 ml @ 200 mls/hr Q24H IV 08/23/17 12:00 08/23/17 11:46 (Norvasc) 5 mg DAILY PO 08/23/17 09:00 08/23/17 07:53 (Aquaphor Oint) 1 applic Q12HR TOPICAL 08/22/17 21:00 08/23/17 21:36 (Aspirin Chew) 81 mg DAILY CHEW 08/23/17 09:00 08/24/17 09:50 (Pepcid) 20 mg BID PO 08/22/17 21:00 08/24/17 09:50 (Apresoline) 10 mg Q8HR PRN PO 08/22/17 12:00 (Lopressor) 50 mg Q12HR PO 08/22/17 21:00 08/23/17 21:36 (Zofran Odt) 4 mg Q6H PRN PO 08/22/17 12:00 (K-Lyte Cl Eff) 25 meq DAILY PO 08/23/17 09:00 Lactated Ringer's 1,000 ml @ 30 mls/hr Q24H PRN IV 08/24/17 05:00 08/27/17 04:59 Sodium Chloride 500 ml @ 30 mls/hr [id number] PRN IV 08/24/17 05:00 08/27/17 04:59 (Betadine 5% Antisepsis Kit) 1 applic SACK REPAIRER PRN EACH NARE 08/24/17 05:00 08/27/17 04:59 (Chlorhexidine 2% Cloth) 3 pack SACK REPAIRER PRN TOPICAL 08/24/17 05:00 08/27/17 04:59 (Win Lima MD, R3) A/P Assessment and Plan Mr Mcintosh is a 57YO male with PMHx BPH s/p prostatectomy, urinary retention requiring an indwelling suprapubic cath from May 2017 to 08/09/17, embolic CVA, MRSA endocarditis undergoing IV antibiotic therapy, and at [facility] who experienced an episode of syncope preceded by tearing CP. ID is consulted for abx management. Cardiology consulted as well for syncope workup. He is a very poor historian so it is difficult to tell what caused the syncopal episode. the only new finding is the q waves. 08/22 late morning pt became acutely lightheaded; Hgb this morning 6.7; on exam, pt experiencing no CP, no other pain, no SOB, but abdomen "feels" tight to pt, but no guarding, tympany, rebound -Type and screen -Transfuse 2u PRBCs -GI consulted -Keep HOB flat -Frequent VS -Continue daptomycin as per ID orders Discharge Planning Pending further medical workup (Win Lima MD, R3) Attending Attestation Patient seen and examined. Case reviewed and discussed with the resident team. Agree with plan of care as discussed with me and documented in the resident note. he is a very poor historian. he was set up with outpt abx and PT, etc by [facility] a few days ago so hopefully that can all be reinstated when he leaves (Clementina Fowler MD) Problem List: (1) Anemia ICD Codes: D64.9 - Anemia, unspecified Status: Chronic Plan: Pt with persistent anemia with Hgb <9.0 since 01/22, and Hgb <13.0 since ; today Hgb 9.8 and asymptomatic -Type and screen -Status post transfused 2u PRBCs -FOBT 08/20 negative -GI consulted--appreciate recs: Colonoscopy plan for today -Daily CBC==transfuse if Hgb<7.0 or if pt symptomatic -Iron study rehab stay showing low normal Iron, low TIBC but normal saturation -MCV 66-68 less suggestive of anemia of chronic disease -Path blood smear suggests WES vs thalassemia -Hgb electrophoresis normal -Zyvox treatment completed 08/21; Daptomycin continuing until 09/01 -he could be Fe deficient from his surgeries and blood draws as this started late Feb 2017 after surgery -once he is taking po can start Fe and recheck CBC as an outpt Zyvox can cause anemia but he is off that now (2) Syncope ICD Codes: R55 - Syncope and collapse Status: Acute Plan: Pt with new onset syncope while working with PT on 08/19 -Cardiology consulted--appreciate recs -ECHO with EF50-55%, mild mitral valve regurg, mild-moderate left atrial dilation, mild right atrial dilation -EKG showing possible inferior infarct between May 2017 and present as new q waves are present in all 3 leads -Troponin <0.02 -Carotid artery US negative -ASA 325mg PO given --> now ASA 81mg PO daily (3) Chest pain ICD Codes: R07.9 - Chest pain, unspecified Status: Resolved Plan: Tearing CP while working with PT; resolved with nitroglycerin once; consider angina vs pleural pain vs other etiology; has been asymptomatic since -Nitroglycerin paste 0.5 inch q8h PRN. 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 Continue abx per ID recs (6) Empyema lung ICD Codes: J86.9 - Pyothorax without fistula Status: Acute Plan: S/P interventional radiology drainage with cultures positive for MRSA. Monitor oximetry with exercise. Follow-up chest x-ray as clinically indicated -CXR 08/20 showing bibasilar PNA that could be sequela from empyema; possibly atelectasis vs PNA as lung exam is normal w/ no cough, CTAB (7) HTN (hypertension) ICD Codes: I10 - Essential (primary) hypertension Status: Chronic Plan: BP 144/67 this morning -- well controlled -Continue amlodipine 5mg PO daily -Metoprolol tartrate 50mg PO q12h -Lipitor 40mg PO daily -Hydralazine 10mg PO q8h PRN if SBP>180 OR DBP>100 (8) FEN/GI/PPx Status: Acute Plan: Fluids: PO fluids following 500ml bolus NS IVF Electrolytes: wnl; K-lyte 25meq daily Nutrition: regular basic diet GI: Famotidine 10mg PO BID PPx: Lovenox 40mg subcu daily, hold for procedures. stopped for now as he will likely get colonoscopy tomorrow Pain: Tylenol 650mg PO q4h pain 1-4 -Zofran 4mg PO q6h nausea (Win Lima MD, R3) Problem Qualifiers (1) Anemia: Qualified Codes: D64.9 - Anemia, unspecified (2) Syncope: Qualified Codes: R55 - Syncope and collapse (3) Chest pain: Qualified Codes: R07.9 - Chest pain, unspecified (4) HTN (hypertension): Qualified Codes: I10 - Essential (primary) hypertension Win Lima MD, R3 Aug 24, 2017 11:36 Clementina Fowler MD Aug 24, 2017 13:24
[2017-08-24] MEDS ORDERED: PROPOFOL 200 MG/20 ML AMP IV ONE (12:00)
[2017-08-24] MEDS ORDERED: LIDOCAINE HCL 1% PF 5 ML SYRINGE OTHER ONE (12:00)
[2017-08-24] MEDS ORDERED: PHENYLEPH/NS 1000 MCG/10 ML SYR IV ONE (12:00)
--- NOTE | 2017-08-24 12:02 | GIPROC ---
[facility] [address] [facility]. [facility], [address] COLONOSCOPY PROCEDURE REPORT EXAM DATE: 08/24/2017 PATIENT NAME: Endy Mcintosh MR #: [id number] BIRTHDATE: 1960 ENDOSCOPIST: Cyrus Smith MD ORDER #: [id number] PLAYBACK OPERATOR: Geneva Dale STATUS: inpatient INDICATIONS: The patient is a 57 yr old male here for a colonoscopy due to iron deficiency anemia PROCEDURE PERFORMED: Colonoscopy with biopsy MEDICATIONS: None and Per Anesthesia. PREP QUALITY: The [place] Bowel Prep Score was Right colon 0, Mid colon 2, and Left colon 2. Total = 4. PREP TYPE:GoLytely ESTIMATED BLOOD LOSS: None CONSENT: The patient understands the risks and benefits of the procedure and understands that these risks include, but are not limited to: sedation, allergic reaction, infection, perforation and/or bleeding. Alternative means of evaluation and treatment include, among others: physical exam, x-rays, and/or surgical intervention. The patient elects to proceed with this endoscopic procedure. medical equipment was checked for proper function. Hand hygiene and appropriate measures for infection prevention was taken. After the risks, benefits and alternatives of the procedure were thoroughly explained, Informed consent was verified, confirmed and timeout was successfully executed by the treatment team. A digital exam revealed external hemorrhoids The Pentax [id number] endoscope was introduced through the anus and advanced to the ascending colon. The instrument was then slowly withdrawn as the colon was fully examined. COLON FINDINGS: A circumferential patch of abnormal mucosa was found in the sigmoid colon. The mucosa was erythematous and congested. This was likely consistent with ischemic colitis disease. A biopsy was performed using cold forceps. Three non-bleeding, shallow, round and clean-based ulcers ranging between 3-5 mm in size were found in the rectum. Retroflexed views revealed internal hemorrhoids and Retroflexed views revealed medium internal hemorrhoids The scope was then completely withdrawn from the patient and the procedure terminated. PROCEDURE WITHDRAWAL TIME:6minutes ADVERSE EVENTS: There were no complications. IMPRESSIONS: 1. Circumferential abnormal mucosa was found in the sigmoid colon; The mucosa was erythematous and congested; biopsy was performed using cold forceps 2. Three ulcers ranging between 3-5 mm in size were found in the rectum 3. Retroflexed views revealed internal hemorrhoids 4. Retroflexed views revealed medium internal hemorrhoids 5. Revealed external hemorrhoids RECOMMENDATIONS: 1. Await biopsy results. Biopsy results will not be ready for 7-10 days. If you don't hear from us in two weeks, call our office for results. 2. Continue surveillance 3. Yearly hemoccult 4. Xray for Barium enema RECALL: Return 1 year Colonoscopy, pending biopsy results Cyrus Smith MD eSigned: Cyrus Smiht MD 08/24/2017 12:02 PM cc: PATIENT NAME: Endy Mcintosh MR#: [id number]
[2017-08-24] MEDS ORDERED: DO NOT ADM ANY ANTICOAGULANT DRUGS PRN (12:05)
[2017-08-24] MEDS ORDERED: MAGNESIUM CITRATE SOLN 300 ML BTL PO ONE ×2 (13:00→18:00)
[2017-08-24 13:39] VITALS: BP 139/61; PULSE 80; RESP 18; TEMP 97.4; O2SAT 95
[2017-08-24] MEDS: DAPTOmycin INJ 750 MG in SODIUM CHLORIDE 0.9% INJ 100 ML IV SCH (15:51)
--- NOTE | 2017-08-24 17:00 | PD.CARD.PN ---
Subjective Subjective Remarks assymptomatic Objective Medications Current Medications Medications (Trade) Dose Ordered Sig/Briseyda Route Start Time Stop Time Status Last Admin (NS Flush) 2 ml UNSCH PRN IV FLUSH 08/22/17 12:00 (NS Flush) 2 ml BID IV FLUSH 08/22/17 21:00 08/24/17 09:50 (Tylenol) 650 mg Q4H PRN PO 08/22/17 12:00 (Narcan Inj) 0.4 mg UNSCH PRN IV PUSH 08/22/17 12:00 (Lucía-Colace) 1 tab BID PO 08/22/17 21:00 08/23/17 21:36 (Milk Of Magnesia Liq) 30 ml Q12H PRN PO 08/22/17 12:00 08/23/17 06:10 (Senokot) 17.2 mg Q12H PRN PO 08/22/17 12:00 (Dulcolax Supp) 10 mg DAILY PRN RECTAL 08/22/17 12:00 (Lactulose Liq) 30 ml DAILY PRN PO 08/22/17 12:00 08/23/17 06:10 Daptomycin 750 mg/ Sodium Chloride 100 ml @ 200 mls/hr Q24H IV 08/23/17 12:00 08/24/17 15:51 (Norvasc) 5 mg DAILY PO 08/23/17 09:00 08/23/17 07:53 (Aquaphor Oint) 1 applic Q12HR TOPICAL 08/22/17 21:00 08/23/17 21:36 (Aspirin Chew) 81 mg DAILY CHEW 08/23/17 09:00 08/24/17 09:50 (Pepcid) 20 mg BID PO 08/22/17 21:00 08/24/17 09:50 (Apresoline) 10 mg Q8HR PRN PO 08/22/17 12:00 (Lopressor) 50 mg Q12HR PO 08/22/17 21:00 08/23/17 21:36 (Zofran Odt) 4 mg Q6H PRN PO 08/22/17 12:00 (K-Lyte Cl Eff) 25 meq DAILY PO 08/23/17 09:00 Lactated Ringer's 1,000 ml @ 30 mls/hr Q24H PRN IV 08/24/17 05:00 08/27/17 04:59 Sodium Chloride 500 ml @ 30 mls/hr [id number] PRN IV 08/24/17 05:00 08/27/17 04:59 (Betadine 5% Antisepsis Kit) 1 applic PLATE EMBOSSER PRN EACH NARE 08/24/17 05:00 08/27/17 04:59 (Chlorhexidine 2% Cloth) 3 pack PLATE EMBOSSER PRN TOPICAL 08/24/17 05:00 08/27/17 04:59 Miscellaneous Information ALL NURSING DEPARTME... UNSCH PRN .XX 08/24/17 12:05 08/25/17 12:04 (Citroma Liq) 300 ml ONCE ONCE PO 08/24/17 18:00 08/24/17 18:01 (Dulcolax Ec) 10 mg DAILY@18,21 PO 08/24/17 18:00 08/24/17 21:01 Vital Signs / I&O Vital Signs Date Time Temp Pulse Resp B/P (MAP) Pulse Ox O2 Delivery O2 Flow Rate FiO2 08/24/17 13:39 97.4 80 18 139/61 (87) 95 08/24/17 12:29 97.6 86 20 112/72 (85) 96 Room Air 08/24/17 12:15 86 20 112/72 (85) 96 Room Air 08/24/17 12:04 97.6 85 20 108/70 (83) 96 Room Air 08/24/17 08:00 97.9 83 18 144/67 (92) 98 08/24/17 04:00 97.7 85 17 128/66 (86) 95 08/24/17 00:00 98.1 75 16 140/65 (90) 97 08/24/17 00:00 73 08/23/17 20:00 98.9 88 16 124/75 (91) 96 08/23/17 20:00 82 I/O 08/23/17 08/23/17 08/23/17 08/24/17 08/24/17 08/24/17 07:00 15:00 23:00 07:00 15:00 23:00 Intake Total 400 ml 300 ml 1000 ml 200 ml Output Total 4 ml Balance 400 ml 300 ml 996 ml 200 ml Intake Oral 1000 ml IV Total 100 ml Packed Cells 400 ml Other 200 ml 200 ml Output Urine Total 4 ml # Voids 3 3 # Bowel Movements 3 1 2 4 Physical Exam GENERAL: SKIN: Warm and dry. HEAD: Normocephalic. EYES: No scleral icterus. No injection or drainage. NECK: Supple, trachea midline. No JVD or lymphadenopathy. CARDIOVASCULAR: Regular rate and rhythm without murmurs, gallops, or rubs. RESPIRATORY: Breath sounds equal bilaterally. No accessory muscle use. GASTROINTESTINAL: Abdomen soft, non-tender, nondistended. MUSCULOSKELETAL: No cyanosis, or edema. BACK: Nontender without obvious deformity. No CVA tenderness. Laboratory Laboratory Tests Test 08/24/17 06:20 White Blood Count 9.9 TH/MM3 Red Blood Count 4.08 MIL/MM3 Hemoglobin 9.8 GM/DL Hematocrit 28.2 % Mean Corpuscular Volume 69.2 FL Mean Corpuscular Hemoglobin 24.1 PG Mean Corpuscular Hemoglobin Concent 34.8 % Red Cell Distribution Width 25.9 % Platelet Count 237 TH/MM3 Mean Platelet Volume 8.1 FL Neutrophils (%) (Auto) 58.8 % Lymphocytes (%) (Auto) 22.9 % Monocytes (%) (Auto) 10.4 % Eosinophils (%) (Auto) 7.5 % Basophils (%) (Auto) 0.4 % Neutrophils # (Auto) 5.8 TH/MM3 Lymphocytes # (Auto) 2.3 TH/MM3 Monocytes # (Auto) 1.0 TH/MM3 Eosinophils # (Auto) 0.7 TH/MM3 Basophils # (Auto) 0.0 TH/MM3 CBC Comment AUTO DIFF Differential Comment AUTO DIFF CONFIRMED Blood Urea Nitrogen 11 MG/DL Creatinine 1.00 MG/DL Random Glucose 98 MG/DL Calcium Level 8.6 MG/DL Sodium Level 138 MEQ/L Potassium Level 3.8 MEQ/L Chloride Level 104 MEQ/L Carbon Dioxide Level 28.9 MEQ/L Anion Gap 5 MEQ/L Estimat Glomerular Filtration Rate 93 ML/MIN Assessment and Plan Problem List: (1) Endocarditis ICD Codes: I38 - Endocarditis, valve unspecified (2) Syncope ICD Codes: R55 - Syncope and collapse Status: Acute (3) Anemia ICD Codes: D64.9 - Anemia, unspecified Status: Chronic Assessment and Plan 1.) Syncope - echo and carotid us nonsignificant, ac held due to anemia, f/u endoscopy results, currently assymptomatic Problem Qualifiers (1) Syncope: Qualified Codes: R55 - Syncope and collapse (2) Anemia: Qualified Codes: D64.9 - Anemia, unspecified Todd Kruger MD Aug 24, 2017 16:59
[2017-08-24] MEDS: BISACODYL EC 5 MG TABEC PO SCH ×2 (18:00→22:45)
[2017-08-24 20:06] VITALS: BP 127/60; PULSE 82; RESP 18; TEMP 97.4; O2SAT 97
[2017-08-25] VITALS (7 sets, daily range): BP systolic 121–145; BP diastolic 58–71; PULSE 65–81; RESP 18–19; TEMP 97.2–98.5; O2SAT 94–99
[2017-08-25 06:33] LABS: HEMATOCRIT 29.7 % (39.0-51.0); HEMOGLOBIN 9.9 GM/DL (13.0-17.0); MEAN CELL VOLUME 70.8 FL (80.0-100.0); MEAN CORPUSCULAR HEMOGLOBIN 23.6 PG (27.0-34.0); MEAN CORPUSCULAR HGB CONC 33.3 % (32.0-36.0); MEAN PLATELET VOLUME 6.6 FL (7.0-11.0); PLATELET COUNT 246 TH/MM3 (150-450); RED BLOOD COUNT 4.19 MIL/MM3 (4.50-5.90); RED CELL DISTRIBUTION WIDTH 26.1 % (11.6-17.2); WHITE BLOOD COUNT 10.8 TH/MM3 (4.0-11.0)
[2017-08-25 07:01] LABS: ALBUMIN 2.5 GM/DL (3.4-5.0); AST (GOT) 16 U/L (15-37); BICARBONATE 27.8 MEQ/L (21.0-32.0); BLOOD UREA NITROGEN 14 MG/DL (7-18); CALCIUM 8.8 MG/DL (8.5-10.1); CHLORIDE 104 MEQ/L (98-107); CHOLESTEROL 82 MG/DL (120-200); CREATININE 1.09 MG/DL (0.60-1.30); GLOMERULAR FILTRATION RATE 84 ML/MIN (>89); GLUCOSE,RANDOM 85 MG/DL (74-106); SODIUM (NA) 141 MEQ/L (136-145)
[2017-08-25 07:05] LABS: ALKALINE PHOSPHATASE 92 U/L (45-117); ALT (GPT) 30 U/L (12-78); CHOLESTEROL/ HDL RATIO 2.46 RATIO; HDL CHOLESTEROL 33.3 MG/DL (40.0-60.0); LDL CHOLESTEROL 32 MG/DL (0-99); TOTAL BILIRUBIN ADULT 0.6 MG/DL (0.2-1.0); TOTAL PROTEIN 8.4 GM/DL (6.4-8.2); TRIGLYCERIDES 84 MG/DL (42-150)
[2017-08-25] MEDS: AQUAPHOR OINT 50 GM TUBE TOPICAL SCH ×2 (09:00→22:34)
[2017-08-25] MEDS: METOPROLOL TARTRATE 50 MG TAB PO SCH ×2 (09:00→22:34)
--- NOTE | 2017-08-25 09:01 | RADRPT ---
EXAM DATE/TIME: 08/25/2017 08:18 [place] COMPARISON: No previous studies available for comparison. INDICATIONS : Anemia and post colonoscopy, unable to do enema due to air in colon. MEDICAL HISTORY : anemia SURGICAL HISTORY : Inguinal hernia repair. Prostatectomy. ENCOUNTER: Initial ACUITY: 1 day PAIN SCORE: 2/10 LOCATION: abdomen FINDINGS: Preliminary police cadet film for Gastrografin enema reveals large amount of air remaining in the colon. Th ere is no significant fluid in the descending colon and rectum. Patient cannot hold Gastrografin. Study can be reattempted the bowel gas pattern normalizes. CONCLUSION: Unable to perform Gastrografin or barium enema. Fredy Vega MD FACR on August 25, 2017 at 8:59 Board Certified Radiologist. This report was verified electronically.
[2017-08-25] MEDS: ASPIRIN 81 MG CHEW TAB CHEW SCH (09:21)
[2017-08-25] MEDS: FAMOTIDINE 20 MG TAB PO SCH ×2 (09:21→22:34)
[2017-08-25] MEDS: DOCUSATE SODIUM 50 MG/SENNA 8.6 MG TAB PO SCH ×2 (09:21→22:34)
[2017-08-25] MEDS: POTASSIUM CHLORIDE 25 MEQ EFFERVESCENT TAB PO SCH (09:21)
[2017-08-25] MEDS: amLODIPine BESYLATE 5 MG TAB PO SCH (09:21)
[2017-08-25] MEDS: SODIUM CHLORIDE 0.9% FLUSH 10 ML FLUSH IV FLUSH SCH ×2 (09:22→22:36)
--- NOTE | 2017-08-25 10:32 | HHI.GIFU ---
Subjective Remarks Resting in the bed No acute nausea vomiting diarrhea or abdominal pain No further diarrhea since colonoscopy Afebrile (Erin Wan) Objective Vitals I&O Vital Signs Date Time Temp Pulse Resp B/P (MAP) Pulse Ox O2 Delivery O2 Flow Rate FiO2 08/25/17 08:00 97.2 78 19 136/60 (85) 97 08/25/17 08:00 77 08/25/17 05:02 97.6 65 18 142/69 (93) 97 08/25/17 00:53 97.3 78 18 145/65 (91) 94 08/24/17 20:06 97.4 82 18 127/60 (82) 97 08/24/17 13:39 97.4 80 18 139/61 (87) 95 08/24/17 12:29 97.6 86 20 112/72 (85) 96 Room Air 08/24/17 12:15 86 20 112/72 (85) 96 Room Air 08/24/17 12:04 97.6 85 20 108/70 (83) 96 Room Air I/O 08/24/17 08/24/17 08/24/17 08/25/17 08/25/17 08/25/17 06:59 14:59 22:59 06:59 14:59 22:59 Intake Total 1000 ml 200 ml Output Total 4 ml 200 ml Balance 996 ml 200 ml -200 ml Intake Oral 1000 ml Other 200 ml Output Urine Total 4 ml 200 ml # Voids 1 # Bowel Movements 4 3 1 Laboratory Laboratory Tests Test 08/25/17 05:54 White Blood Count 10.8 Red Blood Count 4.19 Hemoglobin 9.9 Hematocrit 29.7 Mean Corpuscular Volume 70.8 Mean Corpuscular Hemoglobin 23.6 Mean Corpuscular Hemoglobin Concent 33.3 Red Cell Distribution Width 26.1 Platelet Count 246 Mean Platelet Volume 6.6 Blood Urea Nitrogen 14 Creatinine 1.09 Random Glucose 85 Total Protein 8.4 Albumin 2.5 Calcium Level 8.8 Alkaline Phosphatase 92 Aspartate Amino Transf (AST/SGOT) 16 Alanine Aminotransferase (ALT/SGPT) 30 Total Bilirubin 0.6 Sodium Level 141 Potassium Level 3.5 Chloride Level 104 Carbon Dioxide Level 27.8 Anion Gap 9 Estimat Glomerular Filtration Rate 84 Total Creatine Kinase 112 Triglycerides Level 84 Cholesterol Level 82 LDL Cholesterol 32 HDL Cholesterol 33.3 Cholesterol/HDL Ratio 2.46 Imaging Last Impressions Abdomen X-Ray 08/25/17 0000 Signed Impressions: Service Date/Time: Friday, August 25, 2017 08:18 - CONCLUSION: Unable to perform Gastrografin or barium enema. Fredy Vega MD FACR Physical Exam HEENT: Pupils round and reactive to light; normocephalic; atraumatic; NECK: Neck is supple, no JVD, no lymphadenopathy. CHEST: Chest is clear no obvious wheezing or rhonchi CARDIAC: Regular rate and rhythm ABDOMEN: Soft, mild bloating, nontender; no hepatosplenomegaly; bowel sounds are present in all four quadrants. EXTREMITIES: No clubbing, cyanosis, or edema. SKIN: Normal; no rash; COMMUNICATION MANAGER: Awake and oriented times three, mild verbal slowing but speech understandable (Erin Wan) Assessment and Plan Plan Admission/history assessment - anemia - hgb dropped from 7.7 to 6.7 while at [facility]. pt had syncopal episode and chest pain. stool neg for occult blood, no obvious bleeding. could be multifactorial normal colonoscopy 4 y ago never had EGD - loose stool - since admission in jun. has been on mult antibx, this could be contributing factor 07/21/17 he was neg for c diff - syNcope, CP, endocarditis, MRSA bacteremia, empyema -per primary, ID was following Endoscopy note Prominent ampulla biopsy was done Duodenitis Gastritis biopsy from the antrum Repeat Colonoscopy 08/24/17 showed Circumferential abnormal mucosa was found in the sigmoid colon; The mucosa was erythematous and congested; biopsy was performed using cold forceps Three ulcers ranging between 3-5 mm in size were found in the rectum, Medium internal hemorrhoids External hemorrhoids Barium enema unable to obtain Plan Await biopsy results. Continue surveillance Yearly hemoccult Return 1 year Colonoscopy, pending biopsy results PPI Bowel regimen as needed Return labs Monitor for any acute bleeding Supportive care seen per myself and Dr. Smith, written on his behalf (Erin Wan) Physician Comments Seen and examined with CHANDRIKA, Await ACBE. Await biopsy results. No active bleeding reported. Barium study could not be done today due to retained air from colonoscopy. (Cyrus Smith MD) Erin Wan Aug 25, 2017 10:32 Cyrus Smith MD Aug 25, 2017 12:37
[2017-08-25] MEDS: DAPTOmycin INJ 750 MG in SODIUM CHLORIDE 0.9% INJ 100 ML IV SCH (11:59)
--- NOTE | 2017-08-25 12:53 | PD.CARD.PN ---
Subjective Subjective Remarks assymptomatic, more alert and lucid Objective Medications Current Medications Medications (Trade) Dose Ordered Sig/Briseyda Route Start Time Stop Time Status Last Admin (NS Flush) 2 ml UNSCH PRN IV FLUSH 08/22/17 12:00 (NS Flush) 2 ml BID IV FLUSH 08/22/17 21:00 08/25/17 09:22 (Tylenol) 650 mg Q4H PRN PO 08/22/17 12:00 (Narcan Inj) 0.4 mg UNSCH PRN IV PUSH 08/22/17 12:00 (Lucía-Colace) 1 tab BID PO 08/22/17 21:00 08/25/17 09:21 (Milk Of Magnesia Liq) 30 ml Q12H PRN PO 08/22/17 12:00 08/23/17 06:10 (Senokot) 17.2 mg Q12H PRN PO 08/22/17 12:00 (Dulcolax Supp) 10 mg DAILY PRN RECTAL 08/22/17 12:00 (Lactulose Liq) 30 ml DAILY PRN PO 08/22/17 12:00 08/23/17 06:10 Daptomycin 750 mg/ Sodium Chloride 100 ml @ 200 mls/hr Q24H IV 08/23/17 12:00 08/25/17 11:59 (Norvasc) 5 mg DAILY PO 08/23/17 09:00 08/25/17 09:21 (Aquaphor Oint) 1 applic Q12HR TOPICAL 08/22/17 21:00 08/24/17 22:46 (Aspirin Chew) 81 mg DAILY CHEW 08/23/17 09:00 08/25/17 09:21 (Pepcid) 20 mg BID PO 08/22/17 21:00 08/25/17 09:21 (Apresoline) 10 mg Q8HR PRN PO 08/22/17 12:00 (Lopressor) 50 mg Q12HR PO 08/22/17 21:00 08/24/17 22:45 (Zofran Odt) 4 mg Q6H PRN PO 08/22/17 12:00 (K-Lyte Cl Eff) 25 meq DAILY PO 08/23/17 09:00 08/25/17 09:21 Lactated Ringer's 1,000 ml @ 30 mls/hr Q24H PRN IV 08/24/17 05:00 08/27/17 04:59 Sodium Chloride 500 ml @ 30 mls/hr [id number] PRN IV 08/24/17 05:00 08/27/17 04:59 (Betadine 5% Antisepsis Kit) 1 applic WATCH MANUFA[employer]URING SUPERVISOR PRN EACH NARE 08/24/17 05:00 08/27/17 04:59 (Chlorhexidine 2% Cloth) 3 pack WATCH MANU[employer]CTURING SUPERVISOR PRN TOPICAL 08/24/17 05:00 08/27/17 04:59 Vital Signs / I&O Vital Signs Date Time Temp Pulse Resp B/P (MAP) Pulse Ox O2 Delivery O2 Flow Rate FiO2 08/25/17 08:00 97.2 78 19 136/60 (85) 97 08/25/17 08:00 77 08/25/17 05:02 97.6 65 18 142/69 (93) 97 08/25/17 00:53 97.3 78 18 145/65 (91) 94 08/24/17 20:06 97.4 82 18 127/60 (82) 97 08/24/17 13:39 97.4 80 18 139/61 (87) 95 I/O 08/24/17 08/24/17 08/24/17 08/25/17 08/25/17 08/25/17 07:00 15:00 23:00 07:00 15:00 23:00 Intake Total 1000 ml 200 ml Output Total 4 ml 200 ml Balance 996 ml 200 ml -200 ml Intake Oral 1000 ml Other 200 ml Output Urine Total 4 ml 200 ml # Voids 1 1 # Bowel Movements 4 3 1 Physical Exam GENERAL: SKIN: Warm and dry. HEAD: Normocephalic. EYES: No scleral icterus. No injection or drainage. NECK: Supple, trachea midline. No JVD or lymphadenopathy. CARDIOVASCULAR: Regular rate and rhythm without murmurs, gallops, or rubs. RESPIRATORY: Breath sounds equal bilaterally. No accessory muscle use. GASTROINTESTINAL: Abdomen soft, non-tender, nondistended. MUSCULOSKELETAL: No cyanosis, or edema. BACK: Nontender without obvious deformity. No CVA tenderness. Laboratory Laboratory Tests Test 08/25/17 05:54 White Blood Count 10.8 TH/MM3 Red Blood Count 4.19 MIL/MM3 Hemoglobin 9.9 GM/DL Hematocrit 29.7 % Mean Corpuscular Volume 70.8 FL Mean Corpuscular Hemoglobin 23.6 PG Mean Corpuscular Hemoglobin Concent 33.3 % Red Cell Distribution Width 26.1 % Platelet Count 246 TH/MM3 Mean Platelet Volume 6.6 FL Blood Urea Nitrogen 14 MG/DL Creatinine 1.09 MG/DL Random Glucose 85 MG/DL Total Protein 8.4 GM/DL Albumin 2.5 GM/DL Calcium Level 8.8 MG/DL Alkaline Phosphatase 92 U/L Aspartate Amino Transf (AST/SGOT) 16 U/L Alanine Aminotransferase (ALT/SGPT) 30 U/L Total Bilirubin 0.6 MG/DL Sodium Level 141 MEQ/L Potassium Level 3.5 MEQ/L Chloride Level 104 MEQ/L Carbon Dioxide Level 27.8 MEQ/L Anion Gap 9 MEQ/L Estimat Glomerular Filtration Rate 84 ML/MIN Total Creatine Kinase 112 U/L Triglycerides Level 84 MG/DL Cholesterol Level 82 MG/DL LDL Cholesterol 32 MG/DL HDL Cholesterol 33.3 MG/DL Cholesterol/HDL Ratio 2.46 RATIO Imaging Last 24 hours Impressions Abdomen X-Ray 08/25/17 0000 Signed Impressions: Service Date/Time: Friday, August 25, 2017 08:18 - CONCLUSION: Unable to perform Gastrografin or barium enema. Fredy Vega MD FACR Assessment and Plan Problem List: (1) Endocarditis ICD Codes: I38 - Endocarditis, valve unspecified (2) Syncope ICD Codes: R55 - Syncope and collapse Status: Acute (3) Anemia ICD Codes: D64.9 - Anemia, unspecified Status: Chronic Assessment and Plan 1.) Syncope - echo and carotid us nonsignificant, ac held due to anemia, f/u endoscopy results, currently assymptomatic, clincal improvement correlating with improvement in hgb Problem Qualifiers (1) Syncope: Qualified Codes: R55 - Syncope and collapse (2) Anemia: Qualified Codes: D64.9 - Anemia, unspecified Todd Krugre MD Aug 25, 2017 12:53
--- NOTE | 2017-08-25 13:42 | HHI.FPPN ---
Subjective Remarks Mr Mcintosh is always unfortunately a poor historian. He was very anemic but now is holding his H/H very well. He does have Fe deficiency per his smear done by pathology. He was on more meds in the recent past that can contribute to anemia which he is now off. He has had multiple days getting his GI procedures and evidently was not able to have a barium enema. Poor Mr Mcintosh is not completely cognitively sharp and may not be able to cooperate fully with tests that require effort. Objective Vitals Vital Signs Date Time Temp Pulse Resp B/P (MAP) Pulse Ox O2 Delivery O2 Flow Rate FiO2 08/25/17 12:00 97.3 70 19 127/71 (89) 99 08/25/17 08:00 97.2 78 19 136/60 (85) 97 08/25/17 08:00 77 08/25/17 05:02 97.6 65 18 142/69 (93) 97 08/25/17 00:53 97.3 78 18 145/65 (91) 94 08/24/17 20:06 97.4 82 18 127/60 (82) 97 08/24/17 13:39 97.4 80 18 139/61 (87) 95 I/O 08/24/17 08/24/17 08/24/17 08/25/17 08/25/17 08/25/17 06:59 14:59 22:59 06:59 14:59 22:59 Intake Total 1000 ml 200 ml Output Total 4 ml 200 ml Balance 996 ml 200 ml -200 ml Intake Oral 1000 ml Other 200 ml Output Urine Total 4 ml 200 ml # Voids 1 1 # Bowel Movements 4 3 1 Result Diagram: 08/25/17 0554 08/25/17 0554 Objective Remarks GEN: Well-developed, well-nourished patient. No acute distress. CV: Regular rate and rhythm without obvious murmurs LUNGS: Clear to auscultation bilaterally. Normal respiratory effort. No wheezes , rales, rhonchi. GI: Soft, nontender, nondistended. No palpable masses. Bowel sounds WNL. EXT: No edema. NEURO/PSYCH: Afocal. Awake, alert, and oriented x3. Appropriate insight and judgment. Urinary Catheter: No Vascular Central Line Catheter: No A/P Assessment and Plan Mr Mcintosh is a 57YO male with PMHx BPH s/p prostatectomy, urinary retention requiring an indwelling suprapubic cath from May 2017 to 08/09/17, embolic CVA, MRSA endocarditis undergoing IV antibiotic therapy, and at [facility] who experienced an episode of syncope preceded by tearing CP. ID is consulted for abx management. Cardiology consulted as well for syncope workup. He is a very poor historian so it is difficult to tell what caused the syncopal episode. the only new finding is the q waves. 08/22 late morning pt became acutely lightheaded; Hgb this morning 6.7; on exam, pt experiencing no CP, no other pain, no SOB, but abdomen "feels" tight to pt, but no guarding, tympany, rebound -Type and screen -Transfuse 2u PRBCs -GI consulted -Keep HOB flat -Frequent VS -Continue daptomycin as per ID orders Discharge Planning Pending further medical workup Problem List: (1) Anemia ICD Codes: D64.9 - Anemia, unspecified Status: Chronic Plan: Pt with persistent anemia with Hgb <9.0 since 01/22, and Hgb <13.0 since ; today Hgb 9.8 and asymptomatic he has become stable so hopefully he can be discharged home soon with outpt follow up -Type and screen -Status post transfused 2u PRBCs -FOBT 08/20 negative but Fe deficient per his testing -GI consulted--appreciate recs: Colonoscopy done -Daily CBC==transfuse if Hgb<7.0 or if pt symptomatic -Iron study rehab stay showing low normal Iron, low TIBC but normal saturation -MCV 66-68 less suggestive of anemia of chronic disease -Path blood smear suggests WES vs thalassemia -Hgb electrophoresis normal -Zyvox treatment completed 08/21; Daptomycin continuing until 09/01 -he could be Fe deficient from his surgeries and blood draws as this started late Feb 2017 after surgery -he can start Fe and recheck CBC as an outpt Zyvox can cause anemia but he is off that now (2) Syncope ICD Codes: R55 - Syncope and collapse Status: Resolved Plan: Pt with new onset syncope while working with PT on 08/19 -Cardiology consulted--appreciate recs -ECHO with EF50-55%, mild mitral valve regurg, mild-moderate left atrial dilation, mild right atrial dilation -EKG showing possible inferior infarct between May 2017 and present as new q waves are present in all 3 leads -Troponin <0.02 -Carotid artery US negative -ASA 325mg PO given --> now ASA 81mg PO daily (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 Monitor oximetry with exercise. Follow-up chest x-ray as clinically indicated -CXR 08/20 showing bibasilar PNA that could be sequela from empyema; possibly atelectasis vs PNA as lung exam is normal w/ no cough, CTAB (5) HTN (hypertension) ICD Codes: I10 - Essential (primary) hypertension Status: Chronic Plan: BP 144/67 this morning -- well controlled -Continue amlodipine 5mg PO daily -Metoprolol tartrate 50mg PO q12h -Lipitor 40mg PO daily -Hydralazine 10mg PO q8h PRN if SBP>180 OR DBP>100 (6) FEN/GI/PPx Status: Acute Plan: Fluids: PO fluids following 500ml bolus NS IVF Electrolytes: wnl; K-lyte 25meq daily Nutrition: regular basic diet GI: Famotidine 10mg PO BID PPx: Lovenox 40mg subcu daily, hold for procedures. stopped for now as he is evidently having another procedure tomorrow Pain: Tylenol 650mg PO q4h pain 1-4 -Zofran 4mg PO q6h nausea Problem Qualifiers (1) Anemia: Qualified Codes: D64.9 - Anemia, unspecified (2) Syncope: Qualified Codes: R55 - Syncope and collapse (3) HTN (hypertension): Qualified Codes: I10 - Essential (primary) hypertension Clementina Fowler MD Aug 25, 2017 13:42
[2017-08-26] VITALS (9 sets, daily range): BP systolic 115–146; BP diastolic 64–98; PULSE 67–94; RESP 16–22; TEMP 97.3–98.5; O2SAT 94–99
[2017-08-26] MEDS: POTASSIUM CHLORIDE 25 MEQ EFFERVESCENT TAB PO SCH (09:00)
[2017-08-26] MEDS: DOCUSATE SODIUM 50 MG/SENNA 8.6 MG TAB PO SCH ×2 (09:00→22:33)
--- NOTE | 2017-08-26 09:20 | HHI.FPPN ---
Subjective Remarks SRIDHAR. Mr Mcintosh has no complaints this morning and may order breakfast. He would like to go home if possible. He is stable and GI workup has not found any evidence of GI bleed. His Hgb has stabilized and increased off the Zyvox. Discussed with Dr Smith that pt likely lacks cognitive ability to endure a barium enema study and with lack of GI bleeding sxs so far, and stable with improving Hgb/hemodynamic stability, that pt should be stable without attempting the study again. Denies abdominal pain, CP, SOB, N/V/D, DVT pain. (Matthew Cardona MD R1) Objective Vitals Vital Signs Date Time Temp Pulse Resp B/P (MAP) Pulse Ox O2 Delivery O2 Flow Rate FiO2 08/26/17 05:25 97.9 69 18 146/79 (101) 96 08/26/17 00:27 97.3 72 18 141/65 (90) 94 08/26/17 00:09 71 08/25/17 20:12 98.5 81 18 121/58 (79) 99 08/25/17 20:06 78 08/25/17 16:42 71 08/25/17 12:00 97.3 70 19 127/71 (89) 99 I/O 08/25/17 08/25/17 08/25/17 08/26/17 08/26/17 08/26/17 06:59 14:59 22:59 06:59 14:59 22:59 Output Total 200 ml 250 ml Balance -200 ml -250 ml Output Urine Total 200 ml 250 ml # Voids 1 1 2 # Bowel Movements 1 1 (Matthew Cardona MD R1) Result Diagram: 08/25/17 0554 08/25/17 0554 Objective Remarks GEN: Well-developed, well-nourished patient. No acute distress. CV: Regular rate and rhythm without obvious murmurs LUNGS: Clear to auscultation bilaterally. Normal respiratory effort. No wheezes , rales, rhonchi. GI: Soft, nontender, nondistended. No palpable masses. Bowel sounds WNL. EXT: No edema. Moves all spontaneously with right sided weakness. NEURO/PSYCH: Afocal. Awake, alert, and oriented x3. Appropriate insight and judgment. Medications and IVs Current Medications Medications (Trade) Dose Ordered Sig/Briseyda Route Start Time Stop Time Status Last Admin (NS Flush) 2 ml UNSCH PRN IV FLUSH 08/22/17 12:00 (NS Flush) 2 ml BID IV FLUSH 08/22/17 21:00 08/25/17 22:36 (Tylenol) 650 mg Q4H PRN PO 08/22/17 12:00 (Narcan Inj) 0.4 mg UNSCH PRN IV PUSH 08/22/17 12:00 (Lucía-Colace) 1 tab BID PO 08/22/17 21:00 08/25/17 22:34 (Milk Of Magnesia Liq) 30 ml Q12H PRN PO 08/22/17 12:00 08/23/17 06:10 (Senokot) 17.2 mg Q12H PRN PO 08/22/17 12:00 (Dulcolax Supp) 10 mg DAILY PRN RECTAL 08/22/17 12:00 (Lactulose Liq) 30 ml DAILY PRN PO 08/22/17 12:00 08/23/17 06:10 Daptomycin 750 mg/ Sodium Chloride 100 ml @ 200 mls/hr Q24H IV 08/23/17 12:00 08/25/17 11:59 (Norvasc) 5 mg DAILY PO 08/23/17 09:00 08/25/17 09:21 (Aquaphor Oint) 1 applic Q12HR TOPICAL 08/22/17 21:00 08/25/17 22:34 (Aspirin Chew) 81 mg DAILY CHEW 08/23/17 09:00 08/25/17 09:21 (Pepcid) 20 mg BID PO 08/22/17 21:00 08/25/17 22:34 (Apresoline) 10 mg Q8HR PRN PO 08/22/17 12:00 (Lopressor) 50 mg Q12HR PO 08/22/17 21:00 08/25/17 22:34 (Zofran Odt) 4 mg Q6H PRN PO 08/22/17 12:00 (K-Lyte Cl Eff) 25 meq DAILY PO 08/23/17 09:00 08/25/17 09:21 Lactated Ringer's 1,000 ml @ 30 mls/hr Q24H PRN IV 08/24/17 05:00 08/27/17 04:59 Sodium Chloride 500 ml @ 30 mls/hr [id number] PRN IV 08/24/17 05:00 08/27/17 04:59 (Betadine 5% Antisepsis Kit) 1 applic HAND ROUNDER PRN EACH NARE 08/24/17 05:00 08/27/17 04:59 (Chlorhexidine 2% Cloth) 3 pack HAND ROUNDER PRN TOPICAL 08/24/17 05:00 08/27/17 04:59 (Matthew Cardona MD R1) Urinary Catheter: No (Matthew Cardona MD R1) Vascular Central Line Catheter: Yes (Matthew Cardona MD R1) A/P Assessment and Plan Mr Mcintosh is a 57YO male with PMHx BPH s/p prostatectomy, urinary retention requiring an indwelling suprapubic cath from May 2017 to 08/09/17, embolic CVA, MRSA endocarditis undergoing IV antibiotic therapy, and at [facility] who experienced an episode of syncope preceded by tearing CP. ID is consulted for abx management (completed zyvox 08/21; on daptomycin until 08/31). Cardiology consulted as well for syncope workup and have found normal ECHO with no s/s of cardiogenic etiology. GI workup including colonoscopy and EGD have found no evidence for anemia. He is a very poor historian so it is difficult to tell what caused the syncopal episode. The only new finding is the q waves. 08/22 late morning pt became acutely lightheaded; Hgb this morning 6.7; on exam, pt experiencing no CP, no other pain, no SOB, but abdomen "feels" tight to pt, but no guarding, tympany, rebound; transfused 2u PRBCs. Discharge Planning Pt eval for discharge home vs SNF (Matthew Cardona MD R1) Attending Attestation Patient seen and examined. Case reviewed and discussed with the resident team. Agree with plan of care as discussed with me and documented in the resident note. he is stable with his H/H, etc but needs to be evaluated by PT to be sure he still can go home (Clementina Fowlre MD) Problem List: (1) Anemia ICD Codes: D64.9 - Anemia, unspecified Status: Chronic Plan: Pt with persistent anemia with Hgb <9.0 since 01/22, and Hgb <13.0 since ; today Hgb 9.8 and asymptomatic he has become stable so hopefully he can be discharged home soon with outpt follow up -Type and screen -Status post transfused 2u PRBCs -FOBT 08/20 negative but Fe deficient per his testing -GI consulted--appreciate recs: Colonoscopy done -Daily CBC==transfuse if Hgb<7.0 or if pt symptomatic -Iron study rehab stay showing low normal Iron, low TIBC but normal saturation -MCV 66-68 less suggestive of anemia of chronic disease -Path blood smear suggests WES vs thalassemia -Hgb electrophoresis normal--rules out thalassemia -Zyvox treatment completed 08/21; Daptomycin continuing until 09/01 -he could be Fe deficient from his surgeries and blood draws as this started late Feb 2017 after surgery -he can start Fe and recheck CBC as an outpt Zyvox can cause anemia but he is off that now (2) Syncope ICD Codes: R55 - Syncope and collapse Status: Resolved Plan: Pt with new onset syncope while working with PT on 08/19 -Cardiology consulted--appreciate recs -ECHO with EF50-55%, mild mitral valve regurg, mild-moderate left atrial dilation, mild right atrial dilation -EKG showing possible inferior infarct between May 2017 and present as new q waves are present in all 3 leads -Troponin <0.02 -Carotid artery US negative -ASA 325mg PO given --> now ASA 81mg PO daily -Possibly symptomatic from low Hgb; now corrected -Start FeSO4 325mg BID (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 Monitor oximetry with exercise. Follow-up chest x-ray as clinically indicated -CXR 08/20 showing bibasilar PNA that could be sequela from empyema; possibly atelectasis vs PNA as lung exam is normal w/ no cough, CTAB (5) HTN (hypertension) ICD Codes: I10 - Essential (primary) hypertension Status: Chronic Plan: BP 144/67 this morning -- well controlled -Continue amlodipine 5mg PO daily -Metoprolol tartrate 50mg PO q12h -Lipitor 40mg PO daily -Hydralazine 10mg PO q8h PRN if SBP>180 OR DBP>100 (6) FEN/GI/PPx Status: Acute Plan: Fluids: PO fluids Electrolytes: wnl; K-lyte 25meq daily Nutrition: regular basic diet GI: Famotidine 10mg PO BID PPx: Lovenox 40mg subcu daily, hold for procedures. stopped for now as he is evidently having another procedure tomorrow Pain: Tylenol 650mg PO q4h pain 1-4 -Zofran 4mg PO q6h nausea Bowel regimen (Matthew Cardona MD R1) Problem Qualifiers (1) Anemia: Qualified Codes: D64.9 - Anemia, unspecified (2) Syncope: Qualified Codes: R55 - Syncope and collapse (3) HTN (hypertension): Qualified Codes: I10 - Essential (primary) hypertension Matthew Cardona MD R1 Aug 26, 2017 09:19 Clementina Fowler MD Aug 28, 2017 11:49
[2017-08-26] MEDS: amLODIPine BESYLATE 5 MG TAB PO SCH (09:49)
[2017-08-26] MEDS: FAMOTIDINE 20 MG TAB PO SCH ×2 (09:49→22:33)
[2017-08-26] MEDS: METOPROLOL TARTRATE 50 MG TAB PO SCH ×2 (09:49→22:33)
[2017-08-26] MEDS: ASPIRIN 81 MG CHEW TAB CHEW SCH (09:50)
[2017-08-26] MEDS: SODIUM CHLORIDE 0.9% FLUSH 10 ML FLUSH IV FLUSH SCH ×2 (09:50→22:33)
[2017-08-26] MEDS: AQUAPHOR OINT 50 GM TUBE TOPICAL SCH ×2 (09:51→22:35)
[2017-08-26 12:34] LABS: HEMATOCRIT 31.2 % (39.0-51.0); HEMOGLOBIN 10.3 GM/DL (13.0-17.0); MEAN CELL VOLUME 70.9 FL (80.0-100.0); MEAN CORPUSCULAR HEMOGLOBIN 23.4 PG (27.0-34.0); MEAN CORPUSCULAR HGB CONC 33.1 % (32.0-36.0); MEAN PLATELET VOLUME 6.6 FL (7.0-11.0); PLATELET COUNT 296 TH/MM3 (150-450); RED CELL DISTRIBUTION WIDTH 26.4 % (11.6-17.2); WHITE BLOOD COUNT 13.5 TH/MM3 (4.0-11.0)
--- NOTE | 2017-08-26 12:43 | HHI.GIFU ---
Subjective Remarks Resting in bed. Per RN no ACBE. no bleeding. pt has no complaints. (Snehal Haile) Objective Vitals I&O Vital Signs Date Time Temp Pulse Resp B/P (MAP) Pulse Ox O2 Delivery O2 Flow Rate FiO2 08/26/17 08:35 97.7 89 17 124/77 (93) 98 08/26/17 05:25 97.9 69 18 146/79 (101) 96 08/26/17 00:27 97.3 72 18 141/65 (90) 94 08/26/17 00:09 71 08/25/17 20:12 98.5 81 18 121/58 (79) 99 08/25/17 20:06 78 08/25/17 16:42 71 I/O 08/25/17 08/25/17 08/25/17 08/26/17 08/26/17 08/26/17 07:00 15:00 23:00 07:00 15:00 23:00 Output Total 200 ml 250 ml Balance -200 ml -250 ml Output Urine Total 200 ml 250 ml # Voids 1 1 2 # Bowel Movements 1 1 Laboratory Laboratory Tests Test 08/26/17 12:13 Imaging Last Impressions Abdomen X-Ray 08/25/17 0000 Signed Impressions: Service Date/Time: Friday, August 25, 2017 08:18 - CONCLUSION: Unable to perform Gastrografin or barium enema. Fredy Vega MD FACR Physical Exam HEENT: PERRL; normocephalic; atraumatic; CHEST: CTA CARDIAC: Rrr ABDOMEN: Soft, nondistended, nontender; no hepatosplenomegaly; bowel sounds are present in all four quadrants. EXTREMITIES: No clubbing, cyanosis, or edema. SKIN: Normal; no rash; [employer]: awake, answers simple questions appropriately (Snehal Haile) Assessment and Plan Plan Admission/history assessment - anemia - hgb dropped from 7.7 to 6.7 while at [facility]. pt had syncopal episode and chest pain. stool neg for occult blood, no obvious bleeding. could be multifactorial normal colonoscopy 4 y ago never had EGD - loose stool - since admission in jun. has been on mult antibx, this could be contributing factor 07/21/17 he was neg for c diff - syNcope, CP, endocarditis, MRSA bacteremia, empyema -per primary, ID was following 08/23/17 Endoscopy note Prominent ampulla biopsy was done Duodenitis Gastritis biopsy from the antrum Repeat Colonoscopy 08/24/17 showed Circumferential abnormal mucosa was found in the sigmoid colon; The mucosa was erythematous and congested; biopsy was performed using cold forceps Three ulcers ranging between 3-5 mm in size were found in the rectum, Medium internal hemorrhoids External hemorrhoids Barium enema unable to obtain 08/26/17 biopsy pending. unable to ACBE, it is thought pt will not cooperate sufficiently. No bleeding. Plan CHRISTINA Await biopsy results. colonoscopy 1 year PPI Bowel regimen as needed Monitor for any acute bleeding Supportive care seen per myself and Dr. Carrasquillo, written on his behalf (Snehal Haile) Physician Comments Agree with above assessment and plan, biopsies pending, BE not done. Further recommendations to follow. (Ivana Carrasquillo MD) Snehal Haile Aug 26, 2017 12:43 Ivana Carrasquillo MD Aug 26, 2017 14:25
[2017-08-26] MEDS: DAPTOmycin INJ 750 MG in SODIUM CHLORIDE 0.9% INJ 100 ML IV SCH (13:17)
--- NOTE | 2017-08-26 20:27 | PD.CARD.PN ---
Subjective Subjective Remarks assymptomatic, appears more alert and lucid, ambulating Objective Medications Current Medications Medications (Trade) Dose Ordered Sig/Briseyda Route Start Time Stop Time Status Last Admin (NS Flush) 2 ml UNSCH PRN IV FLUSH 08/22/17 12:00 (NS Flush) 2 ml BID IV FLUSH 08/22/17 21:00 08/26/17 09:50 (Tylenol) 650 mg Q4H PRN PO 08/22/17 12:00 (Narcan Inj) 0.4 mg UNSCH PRN IV PUSH 08/22/17 12:00 (Lucía-Colace) 1 tab BID PO 08/22/17 21:00 08/25/17 22:34 (Milk Of Magnesia Liq) 30 ml Q12H PRN PO 08/22/17 12:00 08/23/17 06:10 (Senokot) 17.2 mg Q12H PRN PO 08/22/17 12:00 (Dulcolax Supp) 10 mg DAILY PRN RECTAL 08/22/17 12:00 (Lactulose Liq) 30 ml DAILY PRN PO 08/22/17 12:00 08/23/17 06:10 Daptomycin 750 mg/ Sodium Chloride 100 ml @ 200 mls/hr Q24H IV 08/23/17 12:00 08/26/17 13:17 (Norvasc) 5 mg DAILY PO 08/23/17 09:00 08/26/17 09:49 (Aquaphor Oint) 1 applic Q12HR TOPICAL 08/22/17 21:00 08/26/17 09:51 (Aspirin Chew) 81 mg DAILY CHEW 08/23/17 09:00 08/26/17 09:50 (Pepcid) 20 mg BID PO 08/22/17 21:00 08/26/17 09:49 (Apresoline) 10 mg Q8HR PRN PO 08/22/17 12:00 (Lopressor) 50 mg Q12HR PO 08/22/17 21:00 08/26/17 09:49 (Zofran Odt) 4 mg Q6H PRN PO 08/22/17 12:00 (K-Lyte Cl Eff) 25 meq DAILY PO 08/23/17 09:00 08/25/17 09:21 Lactated Ringer's 1,000 ml @ 30 mls/hr Q24H PRN IV 08/24/17 05:00 08/27/17 04:59 Sodium Chloride 500 ml @ 30 mls/hr [id number] PRN IV 08/24/17 05:00 08/27/17 04:59 (Betadine 5% Antisepsis Kit) 1 applic HEAD PASTRY CHEF PRN EACH NARE 08/24/17 05:00 08/27/17 04:59 (Chlorhexidine 2% Cloth) 3 pack HEAD PASTRY CHEF PRN TOPICAL 08/24/17 05:00 08/27/17 04:59 Vital Signs / I&O Vital Signs Date Time Temp Pulse Resp B/P (MAP) Pulse Ox O2 Delivery O2 Flow Rate FiO2 08/26/17 18:00 94 08/26/17 16:35 98.5 74 16 120/98 (105) 99 08/26/17 14:47 67 08/26/17 12:49 97.9 76 17 123/74 (90) 99 08/26/17 08:35 97.7 89 17 124/77 (93) 98 08/26/17 05:25 97.9 69 18 146/79 (101) 96 08/26/17 00:27 97.3 72 18 141/65 (90) 94 08/26/17 00:09 71 I/O 08/25/17 08/25/17 08/25/17 08/26/17 08/26/17 08/26/17 07:00 15:00 23:00 07:00 15:00 23:00 Output Total 200 ml 250 ml Balance -200 ml -250 ml Output Urine Total 200 ml 250 ml # Voids 1 1 2 # Bowel Movements 1 1 Physical Exam GENERAL: SKIN: Warm and dry. HEAD: Normocephalic. EYES: No scleral icterus. No injection or drainage. NECK: Supple, trachea midline. No JVD or lymphadenopathy. CARDIOVASCULAR: Regular rate and rhythm without murmurs, gallops, or rubs. RESPIRATORY: Breath sounds equal bilaterally. No accessory muscle use. GASTROINTESTINAL: Abdomen soft, non-tender, nondistended. MUSCULOSKELETAL: No cyanosis, or edema. BACK: Nontender without obvious deformity. No CVA tenderness. Laboratory Laboratory Tests Test 08/26/17 12:13 White Blood Count 13.5 TH/MM3 Red Blood Count 4.40 MIL/MM3 Hemoglobin 10.3 GM/DL Hematocrit 31.2 % Mean Corpuscular Volume 70.9 FL Mean Corpuscular Hemoglobin 23.4 PG Mean Corpuscular Hemoglobin Concent 33.1 % Red Cell Distribution Width 26.4 % Platelet Count 296 TH/MM3 Mean Platelet Volume 6.6 FL Assessment and Plan Problem List: (1) Endocarditis ICD Codes: I38 - Endocarditis, valve unspecified (2) Syncope ICD Codes: R55 - Syncope and collapse Status: Resolved (3) Anemia ICD Codes: D64.9 - Anemia, unspecified Status: Chronic Assessment and Plan 1.) Syncope - echo and carotid us nonsignificant, ac held due to anemia, f/u endoscopy results, currently assymptomatic, clincal improvement correlating with improvement in hgb Problem Qualifiers (1) Syncope: Qualified Codes: R55 - Syncope and collapse (2) Anemia: Qualified Codes: D64.9 - Anemia, unspecified Todd Kruger MD Aug 26, 2017 20:27
[2017-08-27] VITALS (7 sets, daily range): BP systolic 110–134; BP diastolic 58–66; PULSE 66–84; RESP 17–20; TEMP 97.4–98.7; O2SAT 97–99
[2017-08-27] MEDS: AQUAPHOR OINT 50 GM TUBE TOPICAL SCH ×2 (09:00→21:18)
[2017-08-27] MEDS: POTASSIUM CHLORIDE 25 MEQ EFFERVESCENT TAB PO SCH (09:05)
[2017-08-27] MEDS: FAMOTIDINE 20 MG TAB PO SCH ×2 (09:06→21:18)
[2017-08-27] MEDS: DOCUSATE SODIUM 50 MG/SENNA 8.6 MG TAB PO SCH ×2 (09:06→21:18)
[2017-08-27] MEDS: METOPROLOL TARTRATE 50 MG TAB PO SCH ×2 (09:06→21:18)
[2017-08-27] MEDS: ASPIRIN 81 MG CHEW TAB CHEW SCH (09:06)
[2017-08-27] MEDS: amLODIPine BESYLATE 5 MG TAB PO SCH (09:06)
[2017-08-27] MEDS: SODIUM CHLORIDE 0.9% FLUSH 10 ML FLUSH IV FLUSH SCH ×2 (09:06→21:18)
[2017-08-27 09:26] LABS: HEMATOCRIT 29.4 % (39.0-51.0); HEMOGLOBIN 9.6 GM/DL (13.0-17.0)
--- NOTE | 2017-08-27 10:10 | HHI.FPPN ---
Subjective Remarks FAREEDECHARLIE. Mr Mcintosh has no complaints this morning and is ready to eat his breakfast. Denies CP, SOB, N/V/D, DVT pain, but admits his LLE feels a little weak. (Matthew Cardona MD R1) Objective Vitals Vital Signs Date Time Temp Pulse Resp B/P (MAP) Pulse Ox O2 Delivery O2 Flow Rate FiO2 08/27/17 03:45 97.8 69 19 110/66 (81) 97 08/27/17 00:50 98.1 75 20 120/60 (80) 98 08/26/17 20:40 97.9 76 22 115/64 (81) 97 08/26/17 18:00 94 08/26/17 16:35 98.5 74 16 120/98 (105) 99 08/26/17 14:47 67 08/26/17 12:49 97.9 76 17 123/74 (90) 99 I/O 08/26/17 08/26/17 08/26/17 08/27/17 08/27/17 08/27/17 07:00 15:00 23:00 07:00 15:00 23:00 Intake Total 100 ml 400 ml Output Total 250 ml 0 ml 100 ml Balance -250 ml 100 ml 300 ml Intake Oral 100 ml 400 ml Output Urine Total 250 ml 0 ml 100 ml # Voids 2 # Bowel Movements 1 0 0 (Matthew Cardona MD R1) Result Diagram: 08/27/17 0915 08/25/17 0554 Objective Remarks GEN: Well-developed, well-nourished patient. No acute distress. CV: Regular rate and rhythm without obvious murmurs LUNGS: Clear to auscultation bilaterally. Normal respiratory effort. No wheezes , rales, rhonchi. GI: Soft, nontender, nondistended. No palpable masses. Bowel sounds WNL. EXT: No edema. Moves all spontaneously with right sided weakness. NEURO/PSYCH: Afocal. Awake, alert, and oriented x3. Slow speech at baseline. Medications and IVs Current Medications Medications (Trade) Dose Ordered Sig/Briseyda Route Start Time Stop Time Status Last Admin (NS Flush) 2 ml UNSCH PRN IV FLUSH 08/22/17 12:00 (NS Flush) 2 ml BID IV FLUSH 08/22/17 21:00 08/27/17 09:06 (Tylenol) 650 mg Q4H PRN PO 08/22/17 12:00 (Narcan Inj) 0.4 mg UNSCH PRN IV PUSH 08/22/17 12:00 (Lucía-Colace) 1 tab BID PO 08/22/17 21:00 08/27/17 09:06 (Milk Of Magnesia Liq) 30 ml Q12H PRN PO 08/22/17 12:00 08/23/17 06:10 (Senokot) 17.2 mg Q12H PRN PO 08/22/17 12:00 (Dulcolax Supp) 10 mg DAILY PRN RECTAL 08/22/17 12:00 (Lactulose Liq) 30 ml DAILY PRN PO 08/22/17 12:00 08/23/17 06:10 Daptomycin 750 mg/ Sodium Chloride 100 ml @ 200 mls/hr Q24H IV 08/23/17 12:00 08/27/17 11:26 (Norvasc) 5 mg DAILY PO 08/23/17 09:00 08/27/17 09:06 (Aquaphor Oint) 1 applic Q12HR TOPICAL 08/22/17 21:00 08/26/17 22:35 (Aspirin Chew) 81 mg DAILY CHEW 08/23/17 09:00 08/27/17 09:06 (Pepcid) 20 mg BID PO 08/22/17 21:00 08/27/17 09:06 (Apresoline) 10 mg Q8HR PRN PO 08/22/17 12:00 (Lopressor) 50 mg Q12HR PO 08/22/17 21:00 08/27/17 09:06 (Zofran Odt) 4 mg Q6H PRN PO 08/22/17 12:00 (K-Lyte Cl Eff) 25 meq DAILY PO 08/23/17 09:00 08/27/17 09:05 (Matthew Cardona MD R1) Urinary Catheter: No (Matthew Cardona MD R1) Vascular Central Line Catheter: Yes Line: PICC (Matthew Cardona MD R1) A/P Assessment and Plan Mr Mcintosh is a 57YO male with PMHx BPH s/p prostatectomy, urinary retention requiring an indwelling suprapubic cath from May 2017 to 08/09/17, embolic CVA, MRSA endocarditis undergoing IV antibiotic therapy, and at [facility] who experienced an episode of syncope preceded by tearing CP. ID is consulted for abx management (completed zyvox 08/21; on daptomycin until 08/31). Cardiology consulted as well for syncope workup and have found normal ECHO with no s/s of cardiogenic etiology. GI workup including colonoscopy and EGD have found no evidence for anemia. He is a very poor historian so it is difficult to tell what caused the syncopal episode. The only new finding is the q waves. 08/22 late morning pt became acutely lightheaded; Hgb this morning 6.7; on exam, pt experiencing no CP, no other pain, no SOB, but abdomen "feels" tight to pt, but no guarding, tympany, rebound; transfused 2u PRBCs. 08/27 - stable for discharge home with HHPT/OT Discharge Planning Pt eval for discharge home vs SNF (Matthew Cardona MD R1) Attending Attestation Patient seen and examined. Case reviewed and discussed with the resident team. Agree with plan of care as discussed with me and documented in the resident note. it is unclear how he has gotten so weak. he did have 2 colonoscopies and a failed barium enema which could accumulatively make anyone weaker. however, he doesn't even want to stand or sit up in bed. he was doing so well at [facility] (Clementina Fowler MD) Problem List: (1) Anemia ICD Codes: D64.9 - Anemia, unspecified Status: Chronic Plan: Pt with persistent anemia with Hgb <9.0 since 01/22, and Hgb <13.0 since ; today Hgb 9.6 and asymptomatic he has become stable so hopefully he can be discharged home soon with outpt follow up -Type and screen -Status post transfused 2u PRBCs -FOBT 08/20 negative but Fe deficient per his testing -GI consulted--appreciate recs: Colonoscopy done -Daily CBC==transfuse if Hgb<7.0 or if pt symptomatic -Iron study rehab stay showing low normal Iron, low TIBC but normal saturation -MCV 66-68 less suggestive of anemia of chronic disease -Path blood smear suggests WES vs thalassemia -Hgb electrophoresis normal--rules out thalassemia -Zyvox treatment completed 08/21; Daptomycin continuing until 09/01 -he could be Fe deficient from his surgeries and blood draws as this started late Feb 2017 after surgery -he can start Fe and recheck CBC as an outpt Zyvox can cause anemia but he is off that now (2) Syncope ICD Codes: R55 - Syncope and collapse Status: Resolved Plan: Pt with new onset syncope while working with PT on 08/19; asymptomatic since then -Cardiology consulted--appreciate recs -ECHO with EF50-55%, mild mitral valve regurg, mild-moderate left atrial dilation, mild right atrial dilation -EKG showing possible inferior infarct between May 2017 and present as new q waves are present in all 3 leads -Troponin <0.02 -Carotid artery US negative -ASA 325mg PO given --> now ASA 81mg PO daily -Possibly symptomatic from low Hgb; now corrected -FeSO4 325mg BID (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 Monitor oximetry with exercise. Follow-up chest x-ray as clinically indicated -CXR 08/20 showing bibasilar PNA that could be sequela from empyema; possibly atelectasis vs PNA as lung exam is normal w/ no cough, CTAB (5) HTN (hypertension) ICD Codes: I10 - Essential (primary) hypertension Status: Chronic Plan: BP 134/64 this morning -- well controlled -Continue amlodipine 5mg PO daily -Metoprolol tartrate 50mg PO q12h -Lipitor 40mg PO daily -Hydralazine 10mg PO q8h PRN if SBP>180 OR DBP>100 (6) FEN/GI/PPx Status: Acute Plan: Fluids: PO fluids Electrolytes: wnl; K-lyte 25meq daily Nutrition: regular basic diet GI: Famotidine 10mg PO BID PPx: Lovenox 40mg subcu daily, hold for procedures. stopped for now as he is evidently having another procedure tomorrow Pain: Tylenol 650mg PO q4h pain 1-4 -Zofran 4mg PO q6h nausea Bowel regimen (Matthew Cardnoa MD R1) Problem Qualifiers (1) Anemia: Qualified Codes: D64.9 - Anemia, unspecified (2) Syncope: Qualified Codes: R55 - Syncope and collapse (3) HTN (hypertension): Qualified Codes: I10 - Essential (primary) hypertension Matthew Cardona MD R1 Aug 27, 2017 10:10 Clementina Fowler MD Aug 28, 2017 11:51
[2017-08-27] MEDS: DAPTOmycin INJ 750 MG in SODIUM CHLORIDE 0.9% INJ 100 ML IV SCH (11:26)
--- NOTE | 2017-08-27 13:09 | HHI.DCPOC ---
Discharge Care Plan Diagnosis: (1) Left-sided weakness (2) Impaired mobility and activities of daily living (3) Myelopathy, spondylogenic, cervical (4) OLLIE (acute kidney injury) (5) Neuropathy (6) Focal infarction of brain Goals to Promote Your Health * To prevent worsening of your condition and complications * To maintain your health at the optimal level Directions to Meet Your Goals Take your medications as prescribed Follow your dietary instruction Follow activity as directed Keep your appointments as scheduled Take your immunizations and boosters as scheduled If your symptoms worsen call your PCP, if no PCP go to Urgent Care Center or Emergency Room Smoking is Dangerous to Your Health. Avoid second hand smoke Call the 24-hour hour crisis hotline for domestic abuse at [place] MD, R3 Aug 27, 2017 13:09
--- NOTE | 2017-08-27 13:24 | HHI.GIFU ---
Subjective Remarks Pt resting in bed. No complaints. about to eat lunch. (Snehal Haile) Objective Vitals I&O Vital Signs Date Time Temp Pulse Resp B/P (MAP) Pulse Ox O2 Delivery O2 Flow Rate FiO2 08/27/17 10:33 66 08/27/17 08:00 97.4 84 18 134/64 (87) 97 08/27/17 03:45 97.8 69 19 110/66 (81) 97 08/27/17 00:50 98.1 75 20 120/60 (80) 98 08/26/17 20:40 97.9 76 22 115/64 (81) 97 08/26/17 18:00 94 08/26/17 16:35 98.5 74 16 120/98 (105) 99 08/26/17 14:47 67 I/O 08/26/17 08/26/17 08/26/17 08/27/17 08/27/17 08/27/17 07:00 15:00 23:00 07:00 15:00 23:00 Intake Total 100 ml 400 ml Output Total 250 ml 0 ml 100 ml Balance -250 ml 100 ml 300 ml Intake Oral 100 ml 400 ml Output Urine Total 250 ml 0 ml 100 ml # Voids 2 # Bowel Movements 1 0 0 Laboratory Laboratory Tests Test 08/27/17 09:15 Hemoglobin 9.6 Hematocrit 29.4 Physical Exam HEENT: PERRL; normocephalic; atraumatic; CHEST: CTA CARDIAC: Rrr ABDOMEN: Soft, nondistended, nontender; no hepatosplenomegaly; bowel sounds are present in all four quadrants. EXTREMITIES: No clubbing, cyanosis, or edema. SKIN: Normal; no rash; PLATINUMSMITH: awake, answers simple questions appropriately (Snehal Haile) Assessment and Plan Plan Admission/history assessment - anemia - hgb dropped from 7.7 to 6.7 while at [facility]. pt had syncopal episode and chest pain. stool neg for occult blood, no obvious bleeding. could be multifactorial normal colonoscopy 4 y ago never had EGD - loose stool - since admission in jun. has been on mult antibx, this could be contributing factor 07/21/17 he was neg for c diff - syNcope, CP, endocarditis, MRSA bacteremia, empyema -per primary, ID was following 08/23/17 Endoscopy note Prominent ampulla biopsy was done Duodenitis Gastritis biopsy from the antrum Repeat Colonoscopy 08/24/17 showed Circumferential abnormal mucosa was found in the sigmoid colon; The mucosa was erythematous and congested; biopsy was performed using cold forceps Three ulcers ranging between 3-5 mm in size were found in the rectum, Medium internal hemorrhoids External hemorrhoids Barium enema unable to obtain 08/26/17 biopsy pending. unable to ACBE, it is thought pt will not cooperate sufficiently. No bleeding. 08/27/17 path gastric antrum + h pylori. getting discharged, will need either rx for triple therapy or follow up with GI after d/c for tx Plan tx h pylori, triple therapy : omeprazole 20mg PO BID & clarithromycin 500mg PO BID & amoxicillin 1000mg PO BID CHRISTINA colonoscopy 1 year PPI Bowel regimen as needed Supportive care f/u with GI after d/c ok to d/c from GI standpoint seen per myself and Dr. Carrasquillo, written on his behalf (Snehal Haile) Physician Comments Plan as above, follow up as out patient for further recommendations . (Ivana Carrasquillo MD) Snehal Haile Aug 27, 2017 13:24 Ivana Carrasquillo MD Aug 27, 2017 14:08
--- NOTE | 2017-08-27 17:26 | PD.CARD.PN ---
Subjective Subjective Remarks assymptomatic, appears more alert and lucid, ambulating Objective Medications Current Medications Medications (Trade) Dose Ordered Sig/Briseyda Route Start Time Stop Time Status Last Admin (NS Flush) 2 ml UNSCH PRN IV FLUSH 08/22/17 12:00 (NS Flush) 2 ml BID IV FLUSH 08/22/17 21:00 08/27/17 09:06 (Tylenol) 650 mg Q4H PRN PO 08/22/17 12:00 (Narcan Inj) 0.4 mg UNSCH PRN IV PUSH 08/22/17 12:00 (Lucía-Colace) 1 tab BID PO 08/22/17 21:00 08/27/17 09:06 (Milk Of Magnesia Liq) 30 ml Q12H PRN PO 08/22/17 12:00 08/23/17 06:10 (Senokot) 17.2 mg Q12H PRN PO 08/22/17 12:00 (Dulcolax Supp) 10 mg DAILY PRN RECTAL 08/22/17 12:00 (Lactulose Liq) 30 ml DAILY PRN PO 08/22/17 12:00 08/23/17 06:10 Daptomycin 750 mg/ Sodium Chloride 100 ml @ 200 mls/hr Q24H IV 08/23/17 12:00 08/27/17 11:26 (Norvasc) 5 mg DAILY PO 08/23/17 09:00 08/27/17 09:06 (Aquaphor Oint) 1 applic Q12HR TOPICAL 08/22/17 21:00 08/26/17 22:35 (Aspirin Chew) 81 mg DAILY CHEW 08/23/17 09:00 08/27/17 09:06 (Pepcid) 20 mg BID PO 08/22/17 21:00 08/27/17 09:06 (Apresoline) 10 mg Q8HR PRN PO 08/22/17 12:00 (Lopressor) 50 mg Q12HR PO 08/22/17 21:00 08/27/17 09:06 (Zofran Odt) 4 mg Q6H PRN PO 08/22/17 12:00 (K-Lyte Cl Eff) 25 meq DAILY PO 08/23/17 09:00 08/27/17 09:05 Vital Signs / I&O Vital Signs Date Time Temp Pulse Resp B/P (MAP) Pulse Ox O2 Delivery O2 Flow Rate FiO2 08/27/17 16:45 98.7 72 18 124/66 (85) 99 08/27/17 12:35 98.0 80 20 124/58 (80) 99 08/27/17 10:33 66 08/27/17 08:00 97.4 84 18 134/64 (87) 97 08/27/17 03:45 97.8 69 19 110/66 (81) 97 08/27/17 00:50 98.1 75 20 120/60 (80) 98 08/26/17 20:40 97.9 76 22 115/64 (81) 97 08/26/17 18:00 94 I/O 08/26/17 08/26/17 08/26/17 08/27/17 08/27/17 08/27/17 07:00 15:00 23:00 07:00 15:00 23:00 Intake Total 100 ml 400 ml 100 ml Output Total 250 ml 0 ml 100 ml Balance -250 ml 100 ml 300 ml 100 ml Intake Oral 100 ml 400 ml IV Total 100 ml Output Urine Total 250 ml 0 ml 100 ml # Voids 2 # Bowel Movements 1 0 0 Physical Exam GENERAL: SKIN: Warm and dry. HEAD: Normocephalic. EYES: No scleral icterus. No injection or drainage. NECK: Supple, trachea midline. No JVD or lymphadenopathy. CARDIOVASCULAR: Regular rate and rhythm without murmurs, gallops, or rubs. RESPIRATORY: Breath sounds equal bilaterally. No accessory muscle use. GASTROINTESTINAL: Abdomen soft, non-tender, nondistended. MUSCULOSKELETAL: No cyanosis, or edema. BACK: Nontender without obvious deformity. No CVA tenderness. Laboratory Laboratory Tests Test 08/27/17 09:15 Hemoglobin 9.6 GM/DL Hematocrit 29.4 % Assessment and Plan Problem List: (1) Endocarditis ICD Codes: I38 - Endocarditis, valve unspecified (2) Syncope ICD Codes: R55 - Syncope and collapse Status: Resolved (3) Anemia ICD Codes: D64.9 - Anemia, unspecified Status: Chronic Assessment and Plan 1.) Syncope - echo and carotid us nonsignificant, ac held due to anemia, f/u endoscopy results, currently assymptomatic, clincal improvement correlating with improvement in hgb Problem Qualifiers (1) Syncope: Qualified Codes: R55 - Syncope and collapse (2) Anemia: Qualified Codes: D64.9 - Anemia, unspecified Todd Kruger MD Aug 27, 2017 17:26
[2017-08-28] VITALS: BP 120/66; PULSE 80; RESP 18; TEMP 98.3; O2SAT 96
[2017-08-28 04:30] VITALS: BP 128/62; PULSE 76; RESP 19; TEMP 98.2; O2SAT 98
[2017-08-28 08:00] VITALS: BP 109/64; PULSE 79; RESP 16; TEMP 97.3; O2SAT 97
[2017-08-28] MEDS: METOPROLOL TARTRATE 50 MG TAB PO SCH (08:20)
[2017-08-28] MEDS: amLODIPine BESYLATE 5 MG TAB PO SCH (08:20)
[2017-08-28] MEDS: DOCUSATE SODIUM 50 MG/SENNA 8.6 MG TAB PO SCH (08:23)
[2017-08-28] MEDS: FAMOTIDINE 20 MG TAB PO SCH (08:23)
[2017-08-28] MEDS: SODIUM CHLORIDE 0.9% FLUSH 10 ML FLUSH IV FLUSH SCH (08:23)
[2017-08-28] MEDS: ASPIRIN 81 MG CHEW TAB CHEW SCH (08:23)
[2017-08-28] MEDS: POTASSIUM CHLORIDE 25 MEQ EFFERVESCENT TAB PO SCH (08:23)
[2017-08-28] MEDS: AQUAPHOR OINT 50 GM TUBE TOPICAL SCH (08:27)
[2017-08-28 09:28] VITALS: PULSE 84
--- NOTE | 2017-08-28 11:41 | HHI.FPPN ---
Subjective Remarks Patient has no new complaints today. He does not complain of pain. He is currently hungry and needs help getting into a position of comfort to eat. Denies fever, chills, nausea, vomiting. (John No MD, R3) Objective Vitals Vital Signs Date Time Temp Pulse Resp B/P (MAP) Pulse Ox O2 Delivery O2 Flow Rate FiO2 08/28/17 09:28 84 08/28/17 08:00 97.3 79 16 109/64 (79) 97 08/28/17 04:30 98.2 76 19 128/62 (84) 98 08/28/17 00:00 98.3 80 18 120/66 (84) 96 08/27/17 21:45 98.4 82 17 125/60 (81) 97 08/27/17 16:45 98.7 72 18 124/66 (85) 99 08/27/17 12:35 98.0 80 20 124/58 (80) 99 I/O 08/27/17 08/27/17 08/27/17 08/28/17 08/28/17 08/28/17 07:00 15:00 23:00 07:00 15:00 23:00 Intake Total 400 ml 100 ml 1360 ml 450 ml Output Total 100 ml 302 ml 400 ml Balance 300 ml 100 ml 1058 ml 50 ml Intake Oral 400 ml 1360 ml 450 ml IV Total 100 ml Output Urine Total 100 ml 302 ml 400 ml # Voids 2 # Bowel Movements 0 0 0 (John No MD, R3) Result Diagram: 08/27/17 0915 08/25/17 0554 Objective Remarks GEN: Well-developed, well-nourished patient. No acute distress. CV: Regular rate and rhythm without obvious murmurs LUNGS: Clear to auscultation bilaterally. Normal respiratory effort. No wheezes , rales, rhonchi. GI: Soft, nontender, nondistended. No palpable masses. Bowel sounds WNL. EXT: No edema. Moves all spontaneously with right sided weakness. NEURO/PSYCH: Afocal. Awake, alert, and oriented x3. Slow speech at baseline. (John No MD, R3) Line: PICC (John No MD, R3) A/P Assessment and Plan Mr Mcintosh is a 57YO male with PMHx BPH s/p prostatectomy, urinary retention requiring an indwelling suprapubic cath from May 2017 to 08/09/17, embolic CVA, MRSA endocarditis undergoing IV antibiotic therapy, and at [facility] who experienced an episode of syncope preceded by tearing CP. ID is consulted for abx management (completed zyvox 08/21; on daptomycin until 08/31). Cardiology consulted as well for syncope workup and have found normal ECHO with no s/s of cardiogenic etiology. GI workup including colonoscopy and EGD have found no evidence for anemia. Discharge Planning Discharge to [facility] today. (John No MD, R3) Attending Attestation Patient seen and examined. Case reviewed and discussed with the resident team. Agree with plan of care as discussed with me and documented in the resident note. Sadly, he has become weak in such a short time. He never wanted to move or do anything. 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 pylori) ICD Codes: A04.8 - Other specified bacterial intestinal infections Status: Acute Plan: We will follow GIs recommendation:triple therapy : omeprazole 20mg PO BID & clarithromycin 500mg PO BID & amoxicillin 1000mg PO BID (3) Anemia ICD Codes: D64.9 - Anemia, unspecified Status: Chronic Plan: Improved after blood transfusion and has stayed elevated. Possibly related to zyvox which he is now off of. GI consulted and EGD/Colonoscopy reviewed. GI has signed off.per GI, colonoscopy 1 year HISTORY: -Iron study rehab stay showing low normal Iron, low TIBC but normal saturation -Hgb electrophoresis normal--rules out thalassemia -he could be Fe deficient from his surgeries and blood draws as this started late Feb 2017 after surgery -he can start Fe and recheck CBC as an outpt Zyvox can cause anemia but he is off that now (4) Empyema lung ICD Codes: J86.9 - Pyothorax without fistula Status: Acute Plan: S/P interventional radiology drainage with cultures positive for MRSA. Monitor oximetry with exercise. Follow-up chest x-ray as clinically indicated (5) HTN (hypertension) ICD Codes: I10 - Essential (primary) hypertension Status: Chronic Plan: -Continue amlodipine 5mg PO daily -Metoprolol tartrate 50mg PO q12h -Lipitor 40mg PO daily -Hydralazine 10mg PO q8h PRN if SBP>180 OR DBP>100 (6) FEN/GI/PPx Status: Acute Plan: Fluids: PO fluids Electrolytes: wnl; K-lyte 25meq daily Nutrition: regular basic diet GI: Famotidine 10mg PO BID PPx: Lovenox 40mg subcu daily, hold for procedures. SCDs Pain: Tylenol 650mg PO q4h pain 1-4 -Zofran 4mg PO q6h nausea Bowel regimen (7) Syncope ICD Codes: R55 - Syncope and collapse Status: Resolved Plan: Pt with new onset syncope while working with PT on 08/19; asymptomatic since then -Cardiology consulted -ECHO with EF50-55%, mild mitral valve regurg, mild-moderate left atrial dilation, mild right atrial dilation -EKG showing possible inferior infarct between May 2017 and present as new q waves are present in all 3 leads -Troponin <0.02 -Carotid artery US negative -ASA 325mg PO given --> now ASA 81mg PO daily -Possibly symptomatic from low Hgb; now corrected -FeSO4 325mg BID (John No MD, R3) Problem Qualifiers (1) Anemia: Qualified Codes: D64.9 - Anemia, unspecified (2) HTN (hypertension): Qualified Codes: I10 - Essential (primary) hypertension (3) Syncope: Qualified Codes: R55 - Syncope and collapse John No MD, R3 Aug 28, 2017 11:41 Clementina Fowler MD Aug 28, 2017 11:53
[2017-08-28] MEDS ORDERED: PANTOPRAZOLE SOD 20 MG DELAYED RELEASE TAB PO SCH (11:45)
[2017-08-28] MEDS ORDERED: AMOXICILLIN (TRIHYDRATE) 500 MG CAP PO SCH (11:45)
[2017-08-28] MEDS ORDERED: ENOXAPARIN SODIUM 40 MG/0.4 ML SYRINGE SQ SCH (11:45)
[2017-08-28] MEDS ORDERED: CLARITHROMYCIN 500 MG TAB PO SCH (12:00)
== END 2017-08-28 11:46 | DRG 811 ==
LOC: N05B 16:19
PROVIDERS: ADMIT Family Medicine; ATTEND Family Medicine
PROC: 30233N1 Transfusion of Nonautologous Red Blood Cells into Peripheral Vein, Percutaneous Approach (ICD-10-PCS; principal; 2017-08-22)
PROC: 0DB98ZX Excision of Duodenum, Via Natural or Artificial Opening Endoscopic, Diagnostic (ICD-10-PCS; 2017-08-23)
PROC: 0DB78ZX Excision of Stomach, Pylorus, Via Natural or Artificial Opening Endoscopic, Diagnostic (ICD-10-PCS; 2017-08-23)
PROC: 0DBN8ZX Excision of Sigmoid Colon, Via Natural or Artificial Opening Endoscopic, Diagnostic (ICD-10-PCS; 2017-08-24)
DX: D64.9 Anemia, unspecified (principal); I33.0 Acute and subacute infective endocarditis; I63.40 Cerebral infarction due to embolism of unspecified cerebral artery; J86.9 Pyothorax without fistula; M47.12 Other spondylosis with myelopathy, cervical region; N17.9 Acute kidney failure, unspecified; J18.9 Pneumonia, unspecified organism; A04.8 Other specified bacterial intestinal infections; R78.81 Bacteremia; B95.62 Methicillin resistant Staphylococcus aureus infection as the cause of diseases classified elsewhere; R55 Syncope and collapse; R07.9 Chest pain, unspecified; N40.1 Benign prostatic hyperplasia with lower urinary tract symptoms; G62.9 Polyneuropathy, unspecified; R47.1 Dysarthria and anarthria; R33.8 Other retention of urine; I34.0 Nonrheumatic mitral (valve) insufficiency; R91.1 Solitary pulmonary nodule; I10 Essential (primary) hypertension; K29.80 Duodenitis without bleeding; K29.70 Gastritis, unspecified, without bleeding; R63.0 Anorexia; E61.1 Iron deficiency; K64.8 Other hemorrhoids; K64.4 Residual hemorrhoidal skin tags; Z98.1 Arthrodesis status; Z86.73 Personal history of transient ischemic attack (TIA), and cerebral infarction without residual deficits
CPT/HCPCS: 36430; 74018; 80048; 80053; 80061; 82550; 85014; 85018; 85025; 85027; 86920; 88305; 88312; J0878; J2370; J7050; P9016

== ENCOUNTER 2017-10-16 08:56 | Emergency (ER) | payer MEDICARE ==
[~2017-10-16] VITALS: Ht 177.8 cm; Wt 90.0 kg
[~2017-10-16 08:56] MED LIST changes: +AMLO5 PO; +LACT PO; +PANT20 PO; +SENN187 PO; -ZYVO600T PO
[2017-10-16 09:08] VITALS: BP 144/64; PULSE 82; RESP 18; TEMP 98.1; O2SAT 100
[2017-10-16 09:12] VITALS: BP 144/64; PULSE 72; RESP 18; TEMP 98.1; O2SAT 100
--- NOTE | 2017-10-16 09:16 | PD ---
HPI Chief Complaint: Fall Time Seen by Provider: 09:12 Travel History International Travel<30 days: No Contact w/Intl Traveler<30days: No Traveled to known affect area: No History of Present Illness HPI Patient is a 57-year-old male with history of CVA with deficits, who presents the emergency room after he suffered a mechanical fall today. Patient reports that he was walking with his walker, reports that his left hand slipped from the walker and he fell onto his left shoulder. Patient reports that he did hit his head against the wall, denies any loss of consciousness. Patient reports that he was unable to get up and ambulate afterwards, he did call EMS for help. Patient unsure what medications he is on at this time, he does know that he takes an aspirin daily. Patient complains of a mild headache, denies any neck pain, denies any back pain, denies any chest pain, abdominal pain, shortness of breath. Patient's only complaint at this time is left shoulder pain with mild headache. PFSH Past Medical History Arthritis: Yes Asthma: No Autoimmune Disease: No Anxiety: No Depression: No Heart Rhythm Problems: No Cancer: No Cardiovascular Problems: Yes High Cholesterol: No Chemotherapy: No Chest Pain: No Congestive Heart Failure: No COPD: No Cerebrovascular Accident: Yes Diabetes: No Diminished Hearing: No Endocrine: No Gastrointestinal Disorders: No GERD: No Genitourinary: Yes (BPH, prostate removal, suprapubic cath placement/ REMOVED AND SITE HEALED) Hiatal Hernia: No Hypertension: Yes Immune Disorder: No Inguinal Hernia: Yes (REPAIRED) Implanted Vascular Access Dvce: Yes Kidney Stones: No Musculoskeletal: Yes Neurologic: Yes (CVA) Psychiatric: No Reproductive: No Respiratory: Yes Migraines: No Radiation Therapy: No Renal Failure: No Seizures: No Sickle Cell Disease: No Sleep Apnea: Yes Thyroid Disease: No Ulcer: No ?: Not Past Surgical History Abdominal Surgery: No AICD: No Arteriovenous Shunt: No Body Medical Devices: CERVICAL PINS PLACED Cardiac Surgery: No Ear Surgery: No Endocrine Surgery: No Eye Surgery: No Genitourinary Surgery: Yes (prostate removal and suprapubic cath placement) Gynecologic Surgery: No Insulin Pump: No Joint Replacement: No Neurologic Surgery: Yes (SURGERY ON HIS NECK) Oral Surgery: No Pacemaker: No Thoracic Surgery: No Other Surgery: Yes (groin hernia repair) Social History Alcohol Use: No Tobacco Use: No Substance Use: No Allergies-Medications (Allergen,Severity, Reaction): Coded Allergies: No Known Allergies (Verified Allergy, Unknown, 07/16/17) Reported Meds & Prescriptions Reported Meds & Active Scripts Active Acidophilus/l-Sporogenes (Lactobacillus Acidophilus) 35 Million Cell-25 Million Cell Tab 1 Tab PO Q12HR 30 Days Protonix (Pantoprazole Sodium) 20 Mg Tab 20 Mg PO Q12HR 30 Days Senna-Lax (Sennosides) 8.6 Mg Tab 17.2 Mg PO Q12H PRN 30 Days Tgt Aspirin (Aspirin) 81 Mg Chw 81 Mg CHEW DAILY 30 Days Norvasc (Amlodipine Besylate) 5 Mg Tab 2.5 Mg PO DAILY 30 Days Lopressor (Metoprolol Tartrate) 50 Mg Tab 50 Mg PO Q12HR 30 Days Atorvastatin (Atorvastatin Calcium) 40 Mg Tab 40 Mg PO HS 30 Days Nitroglycerin SL (Nitroglycerin) 0.3 Mg Subl 0.3 Mg SL DIRECTED PRN ONE TABLET UNDER THE TONGUE NEEDED FOR CHEST PAIN, MAY REPEAT EVERY FIVE MINUTES FOR A TOTAL OF 3 DOSES OR CALL 911 IF NO RELIEF Tgt Aspirin (Aspirin) 81 Mg Chw 81 Mg CHEW DAILY 30 Days Famotidine 20 Mg Tab 20 Mg PO BID 30 Days Gas Relief Extra Strength (Simethicone) 125 Mg Chw 125 Mg PO Q8HR PRN 30 Days Klor-Con 10 (Potassium Chloride) 10 Meq Tab 40 Meq PO DAILY Amlodipine (Amlodipine Besylate) 5 Mg Tab 5 Mg PO DAILY Lopressor (Metoprolol Tartrate) 50 Mg Tab 50 Mg PO Q12HR Atorvastatin (Atorvastatin Calcium) 40 Mg Tab 40 Mg PO HS Epinephrine Inj 1 Mg/Ml (1 Ml) Inj 0.3 Mg SQ ONCE PRN Give with any signs of respiratory distress. Epinephrine Inj 1 Mg/Ml (1 Ml) Inj 0.3 Mg IV PUSH ONCE PRN Solu-Cortef Inj (Hydrocortisone Sodium Succinate) 250 Mg/2 Ml Inj 250 Mg IV PUSH ONCE PRN Give over 30-60 seconds. Cubicin Inj (Daptomycin) 500 Mg Bag 750 Mg IV Q24H 14 Days Must dilute in appropriate IV Fluid prior to administration Cubicin Inj (Daptomycin) 500 Mg Bag 750 Mg IV Q48H Must dilute in appropriate IV Fluid prior to administration Hydrocodone-Acetamin 5-325 mg (Hydrocodone/Acetaminophen) 5 Mg-325 Mg Tablet 1 Tab PO Q6H PRN Review of Systems General / Constitutional: No: Fever Eyes: No: Visual changes HENT: No: Headaches Cardiovascular: No: Chest Pain or Discomfort Respiratory: No: Shortness of Breath Gastrointestinal: No: Abdominal Pain Genitourinary: No: Dysuria Musculoskeletal: Positive: Limited ROM (Left shoulder), Pain (Left shoulder) Skin: No Rash Neurologic: No: Weakness Psychiatric: No: Depression Endocrine: No: Polydipsia Hematologic/Lymphatic: No: Easy Bruising Physical Exam Narrative GENERAL: NAD SKIN: Focused skin assessment warm/dry. HEAD: Atraumatic. Normocephalic. EYES: Pupils equal and round. No scleral icterus. No injection or drainage. ENT: No nasal bleeding or discharge. Mucous membranes pink and moist. NECK: Trachea midline. No JVD. CARDIOVASCULAR: Regular rate and rhythm. No murmur appreciated. RESPIRATORY: No accessory muscle use. Clear to auscultation. Breath sounds equal bilaterally. GASTROINTESTINAL: Abdomen soft, non-tender, nondistended. Hepatic and splenic margins not palpable. MUSCULOSKELETAL: No obvious deformities. No clubbing. No cyanosis. No edema. Patient with pain with range of motion to the left shoulder, there is no open fractures or obvious deformities. Patient with no midline tenderness to the T or L-spine. NEUROLOGICAL: Awake and alert. Motor grossly within normal limits. Normal speech. PSYCHIATRIC: Appropriate mood and affect; insight and judgment normal. Data Data Last Documented VS Vital Signs Date Time Temp Pulse Resp B/P (MAP) Pulse Ox O2 Delivery O2 Flow Rate FiO2 10/16/17 09:12 18 100 Room Air 10/16/17 09:12 98.1 72 144/64 (90) Orders Orders Shoulder, Complete (>2vws) (10/16/17 ) Ct Brain W/O Iv Contrast(Rout) (10/16/17 09:12) MDM Medical Decision Making Medical Screen Exam Complete: Yes Emergency Medical Condition: Yes Medical Record Reviewed: Yes Interpretation(s) Vital Signs Date Time Temp Pulse Resp B/P (MAP) Pulse Ox O2 Delivery O2 Flow Rate FiO2 10/16/17 09:12 18 100 Room Air 10/16/17 09:08 98.1 82 18 144/64 (90) 100 Differential Diagnosis shoulder sprain/strain, head injury vs ich Narrative Course Last Impressions Head CT 10/16/17 0912 Signed Impressions: Service Date/Time: Monday, October 16, 2017 09:36 - CONCLUSION: Normal examination. Suresh Manuel MD Shoulder X-Ray 10/16/17 0000 Signed Impressions: Service Date/Time: Monday, October 16, 2017 09:52 - CONCLUSION: Unremarkable examination of the left shoulder. There is stable apical pleural thickening left lung apex. Evidence of previous cervical surgery Suresh Manuel MD CT the head with normal exam, x-ray the shoulder with unremarkable for fractures. I did review all studies with patient in detail. Patient will return to the emergency room as needed. Diagnosis Primary Impression: Accident due to mechanical fall without injury Qualified Codes: W19.XXXA - Unspecified fall, initial encounter Additional Impression: Sprain of shoulder, left Qualified Codes: S43.402A - Unspecified sprain of left shoulder joint, initial encounter Patient Instructions: General Instructions Additional Instructions: Please provide patient with a copy of their studies at discharge Please follow up with your primary care doctor in 2-3 days Return to the ER if symptoms worsen or progress Return to the ER as needed Disposition: 01 DISCHARGE HOME Condition: Stable Taisha Sandovalfer Reagan GOMEZ Oct 16, 2017 09:16
--- NOTE | 2017-10-16 09:53 | RADRPT ---
EXAM DATE/TIME: 10/16/2017 09:36 [facility] COMPARISON: No previous studies available for comparison. INDICATIONS : Patient fell RADIATION DOSE: 43.10 CTDIvol (mGy) MEDICAL HISTORY : Cardiovascular disease. Cerebrovascular disease. SURGICAL HISTORY : cervical laminectomy ENCOUNTER: Initial ACUITY: 1 day PAIN SCALE: 0/10 LOCATION: cranial TECHNIQUE: Multiple contiguous axial images were obtained of the head. Using automated exposure control and adj ustment of the mA and/or kV according to patient size, radiation dose was kept as low as reasonably a chievable to obtain optimal diagnostic quality images. DICOM format image data is available electro nically for review and comparison. FINDINGS: CEREBRUM: The ventricles are normal for age. No evidence of midline shift, mass lesion, hemorrhage or acute in farction. No extra-axial fluid collections are seen. POSTERIOR FOSSA: The cerebellum and brainstem are intact. The 4th ventricle is midline. The cerebellopontine angle i s unremarkable. EXTRACRANIAL: The visualized portion of the orbits is intact. SKULL: The calvaria is intact. No evidence of skull fracture. CONCLUSION: Normal examination. Suresh Manuel MD on October 16, 2017 at 9:50 Board Certified Radiologist. This report was verified electronically.
--- NOTE | 2017-10-16 10:15 | RADRPT ---
EXAM DATE/TIME: 10/16/2017 09:52 [facility] COMPARISON: SHOULDER LEFT COMPLETE (>2VWS), July 20, 2017, 12:54. INDICATIONS : Left shoudler joint pain after fall. MEDICAL HISTORY : Cardiovascular disease. Cerebrovascular disease. SURGICAL HISTORY : cervical laminectomy ENCOUNTER: Initial ACUITY: 1 day PAIN SCORE: 10/10 LOCATION: Left shoulder FINDINGS: Multiple view examination of the left shoulder demonstrates no evidence of fracture or dislocation. The glenohumeral and acromioclavicular joints are maintained. There is normal range of motion betwee n internal and external rotation. Bony mineralization is normal. CONCLUSION: Unremarkable examination of the left shoulder. There is stable apical pleural thickening left lung ap ex. Evidence of previous cervical surgery Suresh Manuel MD on October 16, 2017 at 10:12 Board Certified Radiologist. This report was verified electronically.
[2017-10-16 11:43] VITALS: BP 149/66
== END 2017-10-16 12:12 | disposition home or self-care (01) ==
LOC: NEPC 08:56
DX: S43.402A Unspecified sprain of left shoulder joint, initial encounter (principal); R51 Headache; I10 Essential (primary) hypertension; W01.0XXA Fall on same level from slipping, tripping and stumbling without subsequent striking against object, initial encounter; Y93.01 Activity, walking, marching and hiking; Y92.009 Unspecified place in unspecified non-institutional (private) residence as the place of occurrence of the external cause; Z86.73 Personal history of transient ischemic attack (TIA), and cerebral infarction without residual deficits
CPT/HCPCS: 70450; 73030

== ENCOUNTER 2017-10-23 14:34 | Emergency (ER) | payer MEDICARE ==
[~2017-10-23] VITALS: Ht 182.9 cm; Wt 100.0 kg
[2017-10-23 14:36] VITALS: BP 122/75; PULSE 85; RESP 18; TEMP 97.5; O2SAT 100
[2017-10-23] MEDS ORDERED: SODIUM CHLORIDE 0.9% FLUSH 10 ML FLUSH IVF PRN (15:00)
--- NOTE | 2017-10-23 15:15 | RADRPT ---
EXAM DATE/TIME: 10/23/2017 15:10 [facility] COMPARISON: CHEST SINGLE AP, August 30, 2017, 6:32. CHEST PA & LAT, July 21, 2017, 10:28. INDICATIONS : Chest pain, fell 2 days ago. MEDICAL HISTORY : Cardiovascular disease. Cerebrovascular disease. abscess on heart valve, speech impediment SURGICAL HISTORY : None. ENCOUNTER: Initial ACUITY: 2 days PAIN SCORE: 10/10 LOCATION: Bilateral chest FINDINGS: PA and lateral views of the chest demonstrate the lungs to be symmetrically aerated without evidence of mass, infiltrate or effusion. The cardiomediastinal contours are unremarkable. Osseous structure s are intact. CONCLUSION: No acute pulmonary infiltrates. Fahad Garrido MD on October 23, 2017 at 15:12 Board Certified Radiologist. This report was verified electronically.
--- NOTE | 2017-10-23 15:22 | PD ---
HPI . Chest pain Chief Complaint: Fall Time Seen by Provider: 14:46 Travel History International Travel<30 days: No Contact w/Intl Traveler<30days: No Traveled to known affect area: No History of Present Illness HPI This patient presents to us for the evaluation of chest and left arm pain along with left arm weakness. He is status post a fall on 10/16. He was seen here at that time and had an x-ray of his left shoulder which was negative. He also had a CT of his head which was negative for acute findings. Since that time, he has been complaining with soreness on his left chest wall and left arm. His medical secretary teacher reports that he seems to be weak in his left arm. His pain is exacerbated by taking a deep breath and moving. Pain is mild. PFSH Past Medical History Arthritis: Yes Asthma: No Autoimmune Disease: No Anxiety: No Depression: No Heart Rhythm Problems: No Cancer: No Cardiovascular Problems: Yes High Cholesterol: No Chemotherapy: No Chest Pain: No Congestive Heart Failure: No COPD: No Cerebrovascular Accident: Yes (TIA) Diabetes: No Diminished Hearing: No Endocrine: No Gastrointestinal Disorders: No GERD: No Genitourinary: Yes (BPH, prostate removal, suprapubic cath placement/ REMOVED AND SITE HEALED) Headaches: Yes Hiatal Hernia: No Hypertension: Yes Immune Disorder: No Inguinal Hernia: Yes (REPAIRED) Implanted Vascular Access Dvce: Yes Kidney Stones: No Musculoskeletal: Yes Neurologic: Yes (CVA) Psychiatric: No Reproductive: No Respiratory: Yes Migraines: No Radiation Therapy: No Renal Failure: No Seizures: No Sickle Cell Disease: No Sleep Apnea: Yes Thyroid Disease: No Ulcer: No Past Surgical History Abdominal Surgery: No AICD: No Arteriovenous Shunt: No Body Medical Devices: CERVICAL PINS PLACED Cardiac Surgery: No Ear Surgery: No Endocrine Surgery: No Eye Surgery: No Genitourinary Surgery: Yes (prostate removal and suprapubic cath placement) Gynecologic Surgery: No Insulin Pump: No Joint Replacement: No Neurologic Surgery: Yes (cervical and spinal fusion) Oral Surgery: No Pacemaker: No Thoracic Surgery: No Other Surgery: Yes (prostate removal) Social History Alcohol Use: No Tobacco Use: No Substance Use: No Allergies-Medications (Allergen,Severity, Reaction): Coded Allergies: No Known Allergies (Verified Allergy, Unknown, 07/16/17) Reported Meds & Prescriptions Reported Meds & Active Scripts Active Senna-Lax (Sennosides) 8.6 Mg Tab 17.2 Mg PO Q12H PRN 30 Days Lopressor (Metoprolol Tartrate) 50 Mg Tab 50 Mg PO Q12HR 30 Days Nitroglycerin SL (Nitroglycerin) 0.3 Mg Subl 0.3 Mg SL DIRECTED PRN ONE TABLET UNDER THE TONGUE NEEDED FOR CHEST PAIN, MAY REPEAT EVERY FIVE MINUTES FOR A TOTAL OF 3 DOSES OR CALL 911 IF NO RELIEF Tgt Aspirin (Aspirin) 81 Mg Chw 81 Mg CHEW DAILY 30 Days Gas Relief Extra Strength (Simethicone) 125 Mg Chw 125 Mg PO Q8HR PRN 30 Days Atorvastatin (Atorvastatin Calcium) 40 Mg Tab 40 Mg PO HS Reported Amlodipine (Amlodipine Besylate) 2.5 Mg Tab 2.5 Mg PO DAILY Review of Systems Except as stated in HPI: all other systems reviewed are Neg Cardiovascular: Positive: Chest Pain or Discomfort Musculoskeletal: Positive: Myalgias, Limited ROM Physical Exam Narrative GENERAL: Patient speaks like a person with an old stroke. SKIN: warm/dry. HEAD: Normocephalic. Atraumatic. EYES: Pupils equal and round. No scleral icterus. No injection or drainage. ENT: No nasal bleeding or discharge. Mucous membranes pink and moist. NECK: Trachea midline. Full range of motion without pain.. CARDIOVASCULAR: Regular rate and rhythm. Heart sounds are normal. RESPIRATORY: No accessory muscle use. Clear to auscultation. Breath sounds equal bilaterally. Left-sided chest wall tenderness. MUSCULOSKELETAL: Left upper extremity tenderness. No deformity. No bruising or swelling. NEUROLOGICAL: Awake and alert. No obvious cranial nerve deficits. Motor grossly within normal limits. Normal speech. PSYCHIATRIC: Appropriate mood and affect; insight and judgment normal. Data Data Last Documented VS Vital Signs Date Time Temp Pulse Resp B/P (MAP) Pulse Ox O2 Delivery O2 Flow Rate FiO2 10/23/17 14:53 78 16 Room Air 10/23/17 14:36 97.5 122/75 (91) 100 Orders Orders Electrocardiogram (10/23/17 14:50) Basic Metabolic Panel (Bmp) (10/23/17 14:50) Complete Blood Count With Diff (10/23/17 14:50) Magnesium (Mg) (10/23/17 14:50) Troponin I (10/23/17 14:50) Ecg Monitoring (10/23/17 14:50) Iv Access Insert/Monitor (10/23/17 14:50) Oximetry (10/23/17 14:50) Sodium Chloride 0.9% Flush (Ns Flush) (10/23/17 15:00) Chest, Pa & Lat (10/23/17 14:50) Electrocardiogram (10/23/17 ) Labs Laboratory Tests Test 10/23/17 15:25 10/23/17 16:25 White Blood Count 11.0 TH/MM3 Red Blood Count 4.45 MIL/MM3 Hemoglobin 11.3 GM/DL Hematocrit 34.3 % Mean Corpuscular Volume 77.1 FL Mean Corpuscular Hemoglobin 25.4 PG Mean Corpuscular Hemoglobin Concent 32.9 % Red Cell Distribution Width 20.0 % Platelet Count 472 TH/MM3 Mean Platelet Volume 7.2 FL Neutrophils (%) (Auto) 69.3 % Lymphocytes (%) (Auto) 18.4 % Monocytes (%) (Auto) 9.1 % Eosinophils (%) (Auto) 2.7 % Basophils (%) (Auto) 0.5 % Neutrophils # (Auto) 7.6 TH/MM3 Lymphocytes # (Auto) 2.0 TH/MM3 Monocytes # (Auto) 1.0 TH/MM3 Eosinophils # (Auto) 0.3 TH/MM3 Basophils # (Auto) 0.1 TH/MM3 CBC Comment DIFF FINAL Differential Comment Blood Urea Nitrogen 13 MG/DL Creatinine 1.07 MG/DL Random Glucose 89 MG/DL Calcium Level 9.1 MG/DL Magnesium Level 2.6 MG/DL Sodium Level 139 MEQ/L Potassium Level 3.7 MEQ/L Chloride Level 106 MEQ/L Carbon Dioxide Level 24.5 MEQ/L Anion Gap 9 MEQ/L Estimat Glomerular Filtration Rate 86 ML/MIN Troponin I LESS THAN 0.02 NG/ML MDM Medical Decision Making Medical Screen Exam Complete: Yes Emergency Medical Condition: Yes Medical Record Reviewed: Yes (This patient has a complex past medical history. He has had a previous stroke with resultant left hemiparesis. He also has an underlying history of hypertension. Most recently, he was admitted to the hospital with sepsis which was found to be secondary to subacute bacterial endocarditis. He had embolic lesions to his lung and his brain. He fell on and was evaluated here with a CT of his head which was negative and a left shoulder x-ray which was negative.) Interpretation(s) EKG shows a sinus rhythm with a rate of 105. No acute ischemic changes. Differential Diagnosis Differential diagnosis of chest pain includes but is not limited to musculoskeletal pain, pulmonary embolism, acute coronary syndrome, pneumonia, pleurisy Narrative Course This patient presents with a chief complaint of a several day history of left- sided chest pain which started after a fall. He also has some left upper extremity pain. census taker reports "weakness" of his left upper extremity. He has chronic weakness on the left because of a previous stroke. I suspect that his chest pain in his left arm pain is soreness secondary to the recent fall. Chest pain workup is in process. Last Impressions Chest X-Ray 10/23/17 1450 Signed Impressions: Service Date/Time: Monday, October 23, 2017 15:10 - CONCLUSION: No acute pulmonary infiltrates. Fahad Garrido MD The chest x-ray has been independently reviewed by me. CBC Diagram 10/23/17 15:25 BMP Diagram 10/23/17 16:25 Calcium Level 9.1, Magnesium Level 2.6 H trop < 0.02 Diagnosis Primary Impression: Chest wall pain Additional Impressions: Left upper arm pain History of recent fall Additional Instructions: Tylenol as needed for discomfort. A heating pad may help. Disposition: 01 DISCHARGE HOME Condition: Stable Rivka Landaverde MD October 23, 2017 15:22
[2017-10-23 15:37] LABS: AUTOMATED NEUTROPHIL # 7.6 TH/MM3 (1.8-7.7); BASOPHIL # 0.1 TH/MM3 (0-0.2); BASOPHIL % 0.5 % (0.0-2.0); EOSINOPHIL # 0.3 TH/MM3 (0-0.4); EOSINOPHIL % 2.7 % (0.0-4.0); HEMATOCRIT 34.3 % (39.0-51.0); HEMOGLOBIN 11.3 GM/DL (13.0-17.0); LYMPH % 18.4 % (9.0-44.0); MEAN CELL VOLUME 77.1 FL (80.0-100.0); MEAN CORPUSCULAR HEMOGLOBIN 25.4 PG (27.0-34.0); MEAN CORPUSCULAR HGB CONC 32.9 % (32.0-36.0); MEAN PLATELET VOLUME 7.2 FL (7.0-11.0); MONO % 9.1 % (0.0-8.0); NEUT % 69.3 % (16.0-70.0); PLATELET COUNT 472 TH/MM3 (150-450); RED BLOOD COUNT 4.45 MIL/MM3 (4.50-5.90)
[2017-10-23] MEDS ORDERED: AMLO2.5T PO (16:57)
[2017-10-23 16:59] LABS: BICARBONATE 24.5 MEQ/L (21.0-32.0); BLOOD UREA NITROGEN 13 MG/DL (7-18); CALCIUM 9.1 MG/DL (8.5-10.1); CHLORIDE 106 MEQ/L (98-107); CREATININE 1.07 MG/DL (0.60-1.30); GLOMERULAR FILTRATION RATE 86 ML/MIN (>89); GLUCOSE,RANDOM 89 MG/DL (74-106); MAGNESIUM 2.6 MG/DL (1.5-2.5); SODIUM (NA) 139 MEQ/L (136-145)
[2017-10-23 17:03] LABS: TROPONIN I LESS THAN 0.02 NG/ML (0.02-0.05)
[2017-10-23 18:40] VITALS: BP 169/77; PULSE 80; RESP 16; O2SAT 98
--- NOTE | 2017-10-24 15:05 | EKG ---
Date Performed: 10/23/2017 Time Performed: 14:53:02 PTAGE: 57 years EKG: SINUS TACHYCARDIA LEFT VENTRICULAR HYPERTROPHY AND ST-T CHANGE ABNORMAL ECG PREVIOUS TRACING 06/21/2017 Since the prior tracing, the patient has developed anterolateral S T elevation most likely secondary due to the left ventricular hypertrophy. But as it is new, myocardi al ischemia or injury should be excluded clinically. DOCTOR: Leann Self Interpretating Date/Time 10/24/2017 15:05:11
== END 2017-10-23 19:12 | disposition home or self-care (01) ==
LOC: NEPE 14:34
DX: R07.89 Other chest pain (principal); M79.622 Pain in left upper arm; I10 Essential (primary) hypertension; Z79.899 Other long term (current) drug therapy
CPT/HCPCS: 71046; 80048; 83735; 84484; 85025; 93005

== ENCOUNTER 2017-11-11 15:30 | Inpatient (IN) ==
[2017-12-22] MEDS ORDERED: Acetaminophen 325 MG Tablet PO PRN
[2017-12-22] MEDS ORDERED: Dextrose 50% in Water 50 ML Vial IV.PUSH PRN
[2017-12-22] MEDS ORDERED: LORazepam 0.5 MG Tablet PO PRN
[2017-12-22] MEDS ORDERED: Bisacodyl 10 MG Supp RECTAL PRN
[2017-12-22] MEDS ORDERED: Zolpidem Tartrate 5 MG Tablet PO PRN
[2017-12-22] MEDS ORDERED: Menthol 5.8 MG Lozenge BUCCAL PRN
[2017-12-22] MEDS ORDERED: Simethicone 125 MG Chew Tablet PO PRN
[2017-12-22] MEDS ORDERED: Chlorhexidine Gluconate 2% 1 Pack (2 Cloths) TOPICAL PRN (04:00)
[2017-12-22] MEDS: Heparin - SQ 10,000 UNITS/ML Vial SQ SCH ×3 (05:48→22:43)
[2017-12-22] MEDS: Chlorhexidine Gluconate 2% 1 Pack (2 Cloths) TOPICAL SCH (05:49)
[2017-12-22] MEDS: Docusate Sodium 100 MG Capsule PO SCH ×2 (08:17→22:41)
[2017-12-22] MEDS: Metoprolol Tartrate 50 MG Tablet PO SCH ×2 (08:17→22:41)
[2017-12-22] MEDS: amLODIPine 5 MG Tablet PO SCH (08:18)
[2017-12-22] MEDS: DAPTOmycin Inj 1,000 MG in Sodium Chlor 0.9% Inj 100 ML IV.SIG SCH (13:01)
--- NOTE | 2017-12-22 15:32 | P.PN ---
Subjective Interval history: Sleeping, arousable Afebrile, no acute issues Physical Exam Vital signs: Vital Signs 12/22/17 04:00 12/22/17 08:25 12/22/17 13:34 Temperature 97.6 F 97.4 F L 97.6 F Pulse Rate 76 70 86 Respiratory Rate 18 18 Blood Pressure 134/78 119/68 117/70 Pulse Oximetry 98 96 100 Intake & Output 12/21/17 12/22/17 12/22/17 18:59 06:59 18:59 Intake Total 100 / 100 Balance 100 / 100 Weight 87.4 kg 87.5 kg Intake: IV 100 / 100 INVanz Inj 1,000 MG In NS Inj 100 / 100 100 ML @ 100 mls/hr IV.SIG Q24H PAUL Rx#:[id number] Narrative: GENERAL: This is a well-nourished, well-developed patient, in no apparent distress. In a halo CARDIOVASCULAR: RRR, no gallops, or rubs. RESPIRATORY: Fair air entry bilaterally. No W, R, or R GASTROINTESTINAL: Abdomen soft, non-tender, nondistended. Positive bowel sounds MUSCULOSKELETAL: Extremities without clubbing, cyanosis, or edema. Pedal pulses appreciated NEUROLOGICAL: Somnolent but woke up to voice patient was able to wiggle his toes and move his feet Results - Labs CBC & Chem 7: 12/05/17 06:08 12/10/17 09:38 Laboratory Results - last 24 hr 12/20/17 12:20 C-Reactive Protein 4.80 H Assessment and Plan - Plan 57-year-old male with epidural abscess, discitis, osteomyelitis of the cervical spine. Patient is status post surgical intervention. Currently on antibiotics treatment. Needs SNF placement. ID following for antibiotics. 12/19: Continue IV antibiotic on daptomycin, follow with ID, monitor CK CBC and BUN over creatinine weekly while on daptomycin 12/20: Urine positive for ESBL, ID started on ertapenem for 2 weeks, CT chest to assess for his pain was found right greater than left bibasilar infiltrate possibly represent pneumonia, ID to decide on adjusting antibiotic, follow sputum culture if available 12/21: Continue IV antibiotic daptomycin/rifampin/ertapenem, ID following, weekly lab work 12/22: Continue current care with the IV antibiotic and monitor labs weekly A/P: Epidural abscess C7-T1 cervical discitis/osteomyelitis History of C3-6 cervical fusion status post T1 corpectomy, evacuation of spinal epidural abscess, C7-T1 interbody arthrodesis using Titanium mesh cage filled with bone graft, C7-T1 instrumental fixation using Simplicity plate and screws with placement of halo brace on 11/12/2017. Blood cultures 2 11/11 MRSA bacteremia. Wound cultures 11/12 MRSA. - Continue current antibiotic treatment with daptomycin and rifampin per ID recommendation (8-12 weeks), completion January. Discussed with Dr. Kruger who is concerned with elevated CRP and made obtain a CT - monitor lab work LFT BMP and CK weekly. - Currently in halo per NS. - Neurochecks. PT/OT up to chair daily - pain control with a bowel regimen. - air mattress. Possible bibasilar pneumonia ESBL UTI -Ertapenem prescribed by ID for 2 weeks -Monitor sputum culture if available, ID following Essential hypertension, overall controlled on metoprolol Hyperlipidemia, on statin atypical chest painlikely musculoskeletal his pain is reproducible History of tricuspid valve endocarditis 2D Echo left ventricular systolic function is normal. Mitral valve regurgitation , possibly mild to moderate. - Continue metoprolol tartrate 50 mg twice daily and amlodipine 2.5 mg p.o. daily - Holding aspirin 81 mg p.o. daily, resume when cleared by neurosurgery - Continue atorvastatin 40 mg p.o. daily for dyslipidemia Modified barium swallows showed small amount of aspiration. - speech therapy following. - ADAT. Adjustment disorder with anxiety will start Lexapro Constipation - Docusate sodium/senna 1 tablet twice daily for bowel regimen. - Miralax as needed. Superficial thrombosis Noted on RUE US. - conservative care. Insomnia - Ambien 5 mg HS prn. Improved. Prophylaxis -GI -pantoprazole -DVT - MACHO/heparin Discharge Planning To correction facility after completion of daptomycin
[2017-12-22] MEDS: Escitalopram 10 MG Tablet PO SCH (22:42)
[2017-12-23] MEDS: Heparin - SQ 10,000 UNITS/ML Vial SQ SCH ×2 (04:00→17:35)
[2017-12-23] MEDS: Chlorhexidine Gluconate 2% 1 Pack (2 Cloths) TOPICAL SCH (08:01)
[2017-12-23] MEDS: Docusate Sodium 100 MG Capsule PO SCH (10:52)
[2017-12-23] MEDS: Metoprolol Tartrate 50 MG Tablet PO SCH (10:52)
[2017-12-23] MEDS: amLODIPine 5 MG Tablet PO SCH (11:57)
[2017-12-23] MEDS: DAPTOmycin Inj 1,000 MG in Sodium Chlor 0.9% Inj 100 ML IV.SIG SCH (14:57)
--- NOTE | 2017-12-23 16:22 | P.PNIM ---
Subjective Interval history: Sleeping in bed, arousable, no acute issue continue on IV antibiotic Physical Exam Vital signs: Vital Signs 12/22/17 20:00 12/23/17 00:00 12/23/17 04:00 Temperature 98.0 F 98.3 F 98.5 F Pulse Rate 85 86 86 Respiratory Rate 18 18 20 Blood Pressure 112/55 L 111/72 110/59 L Pulse Oximetry 97 97 96 12/23/17 08:00 12/23/17 12:00 Temperature 97.7 F 97.2 F L Pulse Rate 75 72 Respiratory Rate 20 20 Blood Pressure 113/79 144/62 H Pulse Oximetry 98 97 Intake & Output 12/22/17 12/23/17 12/23/17 18:59 06:59 18:59 Intake Total 200 / 200 480 / 480 Balance 200 / 200 480 / 480 Intake: IV 200 / 200 Cubicin Inj 1,000 MG In NS Inj 100 / 100 100 ML @ 200 mls/hr IV.SIG Q24H PAUL Rx#:[id number] INVanz Inj 1,000 MG In NS Inj 100 / 100 100 ML @ 100 mls/hr IV.SIG Q24H PAUL Rx#:[id number] Oral 480 / 480 Other: # Voids 3 Date of Last Bowel Movement 12/23/17 # Bowel Movements 2 Narrative: GENERAL: This is a well-nourished, well-developed patient, in no apparent distress. In a halo CARDIOVASCULAR: RRR, no gallops, or rubs. RESPIRATORY: Fair air entry bilaterally. No W, R, or R GASTROINTESTINAL: Abdomen soft, non-tender, nondistended. Positive bowel sounds MUSCULOSKELETAL: Extremities without clubbing, cyanosis, or edema. Pedal pulses appreciated NEUROLOGICAL: Somnolent but woke up to voice patient was able to wiggle his toes and move his feet Results - Labs CBC & Chem 7: 12/05/17 06:08 12/10/17 09:38 Assessment and Plan - Plan 57-year-old male with epidural abscess, discitis, osteomyelitis of the cervical spine. Patient is status post surgical intervention. Currently on antibiotics treatment. Needs SNF placement. ID following for antibiotics. 12/19: Continue IV antibiotic on daptomycin, follow with ID, monitor CK CBC and BUN over creatinine weekly while on daptomycin 12/20: Urine positive for ESBL, ID started on ertapenem for 2 weeks, CT chest to assess for his pain was found right greater than left bibasilar infiltrate possibly represent pneumonia, ID to decide on adjusting antibiotic, follow sputum culture if available 12/21: Continue IV antibiotic daptomycin/rifampin/ertapenem, ID following, weekly lab work 12/22: Continue current care with the IV antibiotic and monitor labs weekly 12/23: Patient stable in halo collar, on IV antibiotic dapsone ertapenem, CMP, CBC CK ordered A/P: Epidural abscess C7-T1 cervical discitis/osteomyelitis History of C3-6 cervical fusion status post T1 corpectomy, evacuation of spinal epidural abscess, C7-T1 interbody arthrodesis using Titanium mesh cage filled with bone graft, C7-T1 instrumental fixation using Simplicity plate and screws with placement of halo brace on 11/12/2017. Blood cultures 2 11/11 MRSA bacteremia. Wound cultures 11/12 MRSA. - Continue current antibiotic treatment with daptomycin and rifampin per ID recommendation (8-12 weeks), completion January. Discussed with Dr. Kruger who is concerned with elevated CRP and made obtain a CT - monitor lab work LFT BMP and CK weekly. - Currently in halo per NS. - Neurochecks. PT/OT up to chair daily - pain control with a bowel regimen. - air mattress. Possible bibasilar pneumonia ESBL UTI -Ertapenem prescribed by ID for 2 weeks -Monitor sputum culture if available, ID following Essential hypertension, overall controlled on metoprolol Hyperlipidemia, on statin atypical chest painlikely musculoskeletal his pain is reproducible History of tricuspid valve endocarditis 2D Echo left ventricular systolic function is normal. Mitral valve regurgitation , possibly mild to moderate. - Continue metoprolol tartrate 50 mg twice daily and amlodipine 2.5 mg p.o. daily - Holding aspirin 81 mg p.o. daily, resume when cleared by neurosurgery - Continue atorvastatin 40 mg p.o. daily for dyslipidemia Modified barium swallows showed small amount of aspiration. - speech therapy following. - ADAT. Adjustment disorder with anxiety will start Lexapro Constipation - Docusate sodium/senna 1 tablet twice daily for bowel regimen. - Miralax as needed. Superficial thrombosis Noted on RUE US. - conservative care. Insomnia - Ambien 5 mg HS prn. Improved. Prophylaxis -GI -pantoprazole -DVT - MACHO/heparin Discharge Planning To [facility] facility after completion of daptomycin
[2017-12-23 21:53] LABS: Hematocrit 32.4 % (39.0-51.0); Hemoglobin 10.5 gm/dL (13.0-17.0); Mean Corpuscular HGB Conc 32.4 % (32.0-36.0); Mean Corpuscular Hemoglobin 24.9 pg (27.0-34.0); Mean Corpuscular Volume 76.9 fL (80.0-100.0); Mean Platelet Volume 7.6 fL (7.0-11.0); Platelet Count 476 th/mm3 (150-450); Red Blood Count 4.22 mil/mm3 (4.50-5.90); Red Cell Distribution Width 22.1 % (11.6-17.2); White Blood Count 11.9 th/mm3 (4.0-11.0)
[2017-12-23 22:11] LABS: Albumin 2.4 g/dL (3.4-5.0); Anion Gap 12 meq/L (5-15); Aspartate Aminotransferase 65 U/L (15-37); Blood Urea Nitrogen 16 mg/dL (7-18); Calcium 9.7 mg/dL (8.5-10.1); Carbon Dioxide 24.1 meq/L (21.0-32.0); Chloride 102 meq/L (98-107); Glomerular Filtration Rate 87 mL/min (>89); Glucose,Random 88 mg/dL (74-106); Potassium 3.9 meq/L (3.5-5.1); Sodium 138 meq/L (136-145)
[2017-12-23 22:12] LABS: Alanine Aminotransferase 99 U/L (12-78)
[2017-12-23 22:13] LABS: Alkaline Phosphatase 84 U/L (45-117); Total Protein 9.4 g/dL (6.4-8.2)
[2017-12-24] MEDS: Escitalopram 10 MG Tablet PO SCH ×2 (04:58→22:51)
[2017-12-24] MEDS: Heparin - SQ 10,000 UNITS/ML Vial SQ SCH ×4 (04:58→22:59)
[2017-12-24] MEDS: Metoprolol Tartrate 50 MG Tablet PO SCH ×3 (04:58→22:51)
[2017-12-24] MEDS: Docusate Sodium 100 MG Capsule PO SCH ×3 (04:58→22:51)
[2017-12-24] MEDS: Chlorhexidine Gluconate 2% 1 Pack (2 Cloths) TOPICAL SCH (05:59)
[2017-12-24] MEDS: amLODIPine 5 MG Tablet PO SCH (10:16)
--- NOTE | 2017-12-24 12:16 | P.PNIM ---
Subjective Interval history: Patient resting in bed he is eyes open, answering simple questions stated he feels comfortable AST/ALT >65/90 discussed with ID no change continued up to and weekly lab Physical Exam Vital signs: Vital Signs 12/23/17 16:00 12/23/17 20:00 12/23/17 21:10 Temperature 97.7 F 98.7 F Pulse Rate 84 104 H Respiratory Rate 20 20 20 Blood Pressure 140/68 127/62 Pulse Oximetry 97 98 12/24/17 00:00 12/24/17 04:00 12/24/17 06:07 Temperature 98 F 97.7 F Pulse Rate 104 H 91 H Respiratory Rate 18 20 20 Blood Pressure 130/61 116/60 Pulse Oximetry 98 96 12/24/17 10:51 Temperature 95.8 F L Pulse Rate 82 Respiratory Rate 18 Blood Pressure 93/60 L Pulse Oximetry 98 Intake & Output 12/23/17 12/24/17 12/24/17 18:59 06:59 18:59 Output Total 2 / 2 Balance -2 / -2 Output: Urine 2 / 2 Other: Date of Last Bowel Movement 12/23/17 Narrative: GENERAL: This is a well-nourished, well-developed patient, in no apparent distress. In a halo CARDIOVASCULAR: RRR, no gallops, or rubs. RESPIRATORY: Fair air entry bilaterally. No W, R, or R GASTROINTESTINAL: Abdomen soft, non-tender, nondistended. Positive bowel sounds MUSCULOSKELETAL: Extremities without clubbing, cyanosis, or edema. Pedal pulses appreciated NEUROLOGICAL: Somnolent but woke up to voice patient was able to wiggle his toes and move his feet Results - Labs CBC & Chem 7: 12/23/17 21:09 12/23/17 21:09 Laboratory Results - last 24 hr 12/23/17 12/23/17 21:09 21:09 WBC 11.9 H RBC 4.22 L Hgb 10.5 L Hct 32.4 L MCV 76.9 L MCH 24.9 L MCHC 32.4 RDW 22.1 H Plt Count 476 H MPV 7.6 Sodium 138 Potassium 3.9 Chloride 102 Carbon Dioxide 24.1 Anion Gap 12 BUN 16 Creatinine 1.06 Estimated GFR 87 L Random Glucose 88 Calcium 9.7 Total Bilirubin 0.2 AST 65 H ALT 99 H Alkaline Phosphatase 84 Total Protein 9.4 H Albumin 2.4 L Assessment and Plan - Plan 57-year-old male with epidural abscess, discitis, osteomyelitis of the cervical spine. Patient is status post surgical intervention. Currently on antibiotics treatment. Needs SNF placement. ID following for antibiotics. 12/19: Continue IV antibiotic on daptomycin, follow with ID, monitor CK CBC and BUN over creatinine weekly while on daptomycin 12/20: Urine positive for ESBL, ID started on ertapenem for 2 weeks, CT chest to assess for his pain was found right greater than left bibasilar infiltrate possibly represent pneumonia, ID to decide on adjusting antibiotic, follow sputum culture if available 12/21: Continue IV antibiotic daptomycin/rifampin/ertapenem, ID following, weekly lab work 12/22: Continue current care with the IV antibiotic and monitor labs weekly 12/23: Patient stable in halo collar, on IV antibiotic dapsone ertapenem, CMP, CBC CK ordered 12/24: No acute issue continue IV antibiotic monitor labs, AST LFT elevated today I discussed with , she recommended to continue daptomycin and continue weekly labs check A/P: Epidural abscess C7-T1 cervical discitis/osteomyelitis History of C3-6 cervical fusion status post T1 corpectomy, evacuation of spinal epidural abscess, C7-T1 interbody arthrodesis using Titanium mesh cage filled with bone graft, C7-T1 instrumental fixation using Simplicity plate and screws with placement of halo brace on 11/12/2017. Blood cultures 2 11/11 MRSA bacteremia. Wound cultures 11/12 MRSA. - Continue current antibiotic treatment with daptomycin and rifampin per ID recommendation (8-12 weeks), completion January. Discussed with Dr. Kruger who is concerned with elevated CRP and made obtain a CT - monitor lab work LFT BMP and CK weekly. - Currently in halo per NS. - Neurochecks. PT/OT up to chair daily - pain control with a bowel regimen. - air mattress. Possible bibasilar pneumonia ESBL UTI -Ertapenem prescribed by ID for 2 weeks -Monitor sputum culture if available, ID following Essential hypertension, overall controlled on metoprolol Hyperlipidemia, on statin atypical chest painlikely musculoskeletal his pain is reproducible History of tricuspid valve endocarditis 2D Echo left ventricular systolic function is normal. Mitral valve regurgitation , possibly mild to moderate. - Continue metoprolol tartrate 50 mg twice daily and amlodipine 2.5 mg p.o. daily - Holding aspirin 81 mg p.o. daily, resume when cleared by neurosurgery - Continue atorvastatin 40 mg p.o. daily for dyslipidemia Modified barium swallows showed small amount of aspiration. - speech therapy following. - ADAT. Adjustment disorder with anxiety will start Lexapro Constipation - Docusate sodium/senna 1 tablet twice daily for bowel regimen. - Miralax as needed. Superficial thrombosis Noted on RUE US. - conservative care. Insomnia - Ambien 5 mg HS prn. Improved. Prophylaxis -GI -pantoprazole -DVT - MACHO/heparin [facility]
--- NOTE | 2017-12-24 13:56 | P.PNID ---
Subjective Remarks: ID COVERAGE 57 yo male known to me from previous admission, h/o MV endocarditis, lung abscess sp tx h/o previous fusion 2 yrs ago apparently sp fall 1 month ago per mother pt started to get weaker after the fall He c/o neck pain x 2 weeks He presented with all 4 extremities progressive weakness more prominent in BLE MRI showed . Dramatic change when compared to the prior study with MRI findings consistent with C7-T1 discitis and osteomyelitis with a small epidural abscess at C7-T1 ; the abscess does cause severe central canal stenosis Pt was sen by Dr Kern who took him for emergent procedure On November 12, 2017 pt underwent T1 corpectomy, evacuation of spinal epidural abscess, C7-T1 interbody arthrodesis using Titanium mesh cage filled with bone graft, C7-T1 instrumental fixation using Simplicity plate and screws by Dr Kern Pt was started on broad spectrum abx Blood clx are positive for MRSA Notes reviewed Temps okay No new complaints LFT slightly up from before Antibiotics: Cubicin/Rifampin Invanz Past Medical History: MV endocarditis lung abscess Allergies/Adverse Reactions: Allergies No Known Allergies Allergy (Verified 12/21/17 11:30) Objective Vital Signs 12/23/17 16:00 12/23/17 20:00 12/23/17 21:10 Temperature 97.7 F 98.7 F Pulse Rate 84 104 H Respiratory Rate 20 20 20 Blood Pressure 140/68 127/62 Pulse Oximetry 97 98 12/24/17 00:00 12/24/17 04:00 12/24/17 06:07 Temperature 98 F 97.7 F Pulse Rate 104 H 91 H Respiratory Rate 18 20 20 Blood Pressure 130/61 116/60 Pulse Oximetry 98 96 12/24/17 10:51 Temperature 95.8 F L Pulse Rate 82 Respiratory Rate 18 Blood Pressure 93/60 L Pulse Oximetry 98 Intake & Output 12/23/17 12/24/17 12/24/17 18:59 06:59 18:59 Output Total 2 / 2 Balance -2 / -2 Output: Urine 2 / 2 Other: Date of Last Bowel Movement 12/23/17 Lab - Hematology Results 12/23/17 21:09 WBC 11.9 H RBC 4.22 L Hgb 10.5 L Hct 32.4 L MCV 76.9 L MCH 24.9 L MCHC 32.4 RDW 22.1 H Plt Count 476 H MPV 7.6 Lab - Chemistry Results 12/23/17 21:09 Sodium 138 Potassium 3.9 Chloride 102 Carbon Dioxide 24.1 Anion Gap 12 BUN 16 Creatinine 1.06 Estimated GFR 87 L Random Glucose 88 Calcium 9.7 Total Bilirubin 0.2 AST 65 H ALT 99 H Alkaline Phosphatase 84 Total Protein 9.4 H Albumin 2.4 L Physical Exam: Physical Exam CONSTITUTIONAL/GENERAL: Awake and alert, NAD. SKIN: Cool and dry, no generalized rash. No jaundice, rashes, or lesions.Skin temperature appropriate. Not diaphoretic. HEAD:HALO in place EYES: Pupils equal and round and reactive. Extraocular motions intact. No scleral icterus. No injection or drainage. MOUTH: Moist oral mucosa CARDIOVASCULAR: Regular rate and rhythm without murmurs, gallops, or rubs. RESPIRATORY/CHEST: Symmetric, unlabored respirations. Clear to auscultation. Breath sounds equal bilaterally. No wheezes, rales, or rhonchi. GASTROINTESTINAL: Abdomen soft, non-tender, nondistended. No hepato-splenomegaly , or palpable masses. No guarding. Bowel sounds present. GENITOURINARY: Without palpable bladder distension. MUSCULOSKELETAL: Extremities without clubbing, cyanosis, or edema. No joint tenderness or effusion noted. No calf tenderness. No mottling or clubbing. : no palpable bladder distention NEUROLOGICAL: awake alert. seems to have 1/5 all extremities. PSYCHIATRIC: No obvious anxiety/depression. no apparent hallucinations or other psychotic thought process. LINE: No evidence of infection Assessment and Plan - Plan IMPRESSION C7-T1 discitis with an epidural abscess, MRSA Incomplete tetraplegia: some improvemment noted sp emergent decompression vanco TERRY 2 , dapto 0.25 MRI with new cord edema - that proabbly explainning nrew neuro findings MRSA sepsis H/o MRSA TV endocarditis and lung abscess 2 D echo neg Abx associated diarrhea,c.diff negative as of 11/21 - increase of diarrhea ESR persistently elevated CRP from undetectable t to 15 UTI ESBL + RECOMMENDATION Continue ERtapenem, give x 2 weeks - end date ordered on [facility] Cont Dapto + rifampin thru 01/11 tenatively (8 weeks), then will switch to po - monitor CKs weekly while on dapto - Dapto plus Rifampin for 8-12 weeks followed by terminal make up operator suppression due to pt's history of relapse and indwelling hardware Repeat CRP CBC with diff, CMP, CK level, CRP each week to be ordered by hospitalist Kailey and followed by them. Please call sooner if any new changes or abnormal labs. Monitor progress Follow labs weekly D/W Dr Masters - will repeat LFT and monitor for now
[2017-12-24] MEDS: DAPTOmycin Inj 1,000 MG in Sodium Chlor 0.9% Inj 100 ML IV.SIG SCH (22:52)
[2017-12-25] MEDS: Chlorhexidine Gluconate 2% 1 Pack (2 Cloths) TOPICAL SCH (04:20)
[2017-12-25] MEDS: Heparin - SQ 10,000 UNITS/ML Vial SQ SCH ×2 (06:26→14:14)
[2017-12-25] MEDS: amLODIPine 5 MG Tablet PO SCH (09:11)
[2017-12-25] MEDS: Metoprolol Tartrate 50 MG Tablet PO SCH ×2 (09:11→20:19)
[2017-12-25] MEDS: Docusate Sodium 100 MG Capsule PO SCH ×2 (09:12→20:20)
[2017-12-25] MEDS: DAPTOmycin Inj 1,000 MG in Sodium Chlor 0.9% Inj 100 ML IV.SIG SCH (14:14)
--- NOTE | 2017-12-25 17:17 | P.PNIM ---
Subjective Interval history: Resting in bed no acute issue open eyes to voice Physical Exam Vital signs: Vital Signs 12/24/17 20:25 12/25/17 00:30 12/25/17 04:00 Temperature 98.0 F 97.7 F 98.1 F Pulse Rate 78 82 81 Respiratory Rate 16 18 Blood Pressure 129/63 124/60 115/70 Pulse Oximetry 97 97 12/25/17 08:00 12/25/17 12:00 Temperature 97.8 F 98.2 F Pulse Rate 82 92 H Respiratory Rate 18 Blood Pressure 106/56 L 105/53 L Pulse Oximetry 98 95 Intake & Output 12/24/17 12/25/17 12/25/17 18:59 06:59 18:59 Intake Total 100 / 100 400 / 400 Balance 100 / 100 400 / 400 Intake: IV 100 / 100 INVanz Inj 1,000 MG In NS Inj 100 / 100 100 ML @ 100 mls/hr IV.SIG Q24H PAUL Rx#:[id number] Oral 400 / 400 Other: # Incontinent Voids 6 Date of Last Bowel Movement 12/24/17 12/25/17 # Incontinent Bowel Movements 4 Narrative: GENERAL: This is a well-nourished, well-developed patient, in no apparent distress. In a halo CARDIOVASCULAR: RRR, no gallops, or rubs. RESPIRATORY: Fair air entry bilaterally. No W, R, or R GASTROINTESTINAL: Abdomen soft, non-tender, nondistended. Positive bowel sounds MUSCULOSKELETAL: Extremities without clubbing, cyanosis, or edema. Pedal pulses appreciated NEUROLOGICAL: Somnolent but woke up to voice patient was able to wiggle his toes and move his feet Results - Labs CBC & Chem 7: 12/23/17 21:09 12/23/17 21:09 Assessment and Plan - Plan 57-year-old male with epidural abscess, discitis, osteomyelitis of the cervical spine. Patient is status post surgical intervention. Currently on antibiotics treatment. Needs SNF placement. ID following for antibiotics. 12/19: Continue IV antibiotic on daptomycin, follow with ID, monitor CK CBC and BUN over creatinine weekly while on daptomycin 12/20: Urine positive for ESBL, ID started on ertapenem for 2 weeks, CT chest to assess for his pain was found right greater than left bibasilar infiltrate possibly represent pneumonia, ID to decide on adjusting antibiotic, follow sputum culture if available 12/21: Continue IV antibiotic daptomycin/rifampin/ertapenem, ID following, weekly lab work 12/22: Continue current care with the IV antibiotic and monitor labs weekly 12/23: Patient stable in halo collar, on IV antibiotic dapsone ertapenem, CMP, CBC CK ordered 12/24: No acute issue continue IV antibiotic monitor labs, AST LFT elevated today I discussed with , she recommended to continue daptomycin and continue weekly labs check 12/25: Continue IV antibiotic per ID recommendation with weekly lab check, neuro check, follow with neurosurgeon A/P: Epidural abscess C7-T1 cervical discitis/osteomyelitis History of C3-6 cervical fusion status post T1 corpectomy, evacuation of spinal epidural abscess, C7-T1 interbody arthrodesis using Titanium mesh cage filled with bone graft, C7-T1 instrumental fixation using Simplicity plate and screws with placement of halo brace on 11/12/2017. Blood cultures 2 11/11 MRSA bacteremia. Wound cultures 11/12 MRSA. - Continue current antibiotic treatment with daptomycin and rifampin per ID recommendation (8-12 weeks), completion January. Discussed with Dr. Kruger who is concerned with elevated CRP and made obtain a CT - monitor lab work LFT BMP and CK weekly. - Currently in halo per NS. - Neurochecks. PT/OT up to chair daily - pain control with a bowel regimen. - air mattress. Possible bibasilar pneumonia ESBL UTI -Ertapenem prescribed by ID for 2 weeks -Monitor sputum culture if available, ID following Essential hypertension, overall controlled on metoprolol Hyperlipidemia, on statin atypical chest painlikely musculoskeletal his pain is reproducible History of tricuspid valve endocarditis 2D Echo left ventricular systolic function is normal. Mitral valve regurgitation , possibly mild to moderate. - Continue metoprolol tartrate 50 mg twice daily and amlodipine 2.5 mg p.o. daily - Holding aspirin 81 mg p.o. daily, resume when cleared by neurosurgery - Continue atorvastatin 40 mg p.o. daily for dyslipidemia Modified barium swallows showed small amount of aspiration. - speech therapy following. - ADAT. Adjustment disorder with anxiety will start Lexapro Constipation - Docusate sodium/senna 1 tablet twice daily for bowel regimen. - Miralax as needed. Superficial thrombosis Noted on RUE US. - conservative care. Insomnia - Ambien 5 mg HS prn. Improved. Prophylaxis -GI -pantoprazole -DVT - MACHO/heparin Discharge Planning To [facility] facility after completion of daptomycin
[2017-12-25] MEDS: Escitalopram 10 MG Tablet PO SCH (20:20)
[2017-12-26] MEDS: Heparin - SQ 10,000 UNITS/ML Vial SQ SCH ×4 (00:21→23:59)
[2017-12-26] MEDS: Chlorhexidine Gluconate 2% 1 Pack (2 Cloths) TOPICAL SCH (04:04)
[2017-12-26] MEDS: Metoprolol Tartrate 50 MG Tablet PO SCH ×2 (09:25→23:59)
[2017-12-26] MEDS: amLODIPine 5 MG Tablet PO SCH (09:25)
[2017-12-26] MEDS: Docusate Sodium 100 MG Capsule PO SCH ×2 (09:27→23:57)
[2017-12-26] MEDS: DAPTOmycin Inj 1,000 MG in Sodium Chlor 0.9% Inj 100 ML IV.SIG SCH (13:26)
--- NOTE | 2017-12-26 13:36 | P.PNIM ---
Subjective Interval history: Patient was sitting on chair earlier today open eyes and smiling, now in bed, discussed with the nurse, also came to adjust his halo Afebrile, speech recommending mechanical soft with thickened nectar Physical Exam Vital signs: Vital Signs 12/25/17 16:00 12/25/17 20:00 12/25/17 20:20 Temperature 98.7 F 98.8 F Pulse Rate 75 83 Respiratory Rate 16 18 18 Blood Pressure 109/55 L 125/58 L Pulse Oximetry 96 96 12/26/17 01:20 12/26/17 07:38 12/26/17 08:00 Temperature 98 F 98 F 98.6 F Pulse Rate 76 87 83 Respiratory Rate 19 20 20 Blood Pressure 123/63 118/68 119/62 Pulse Oximetry 95 94 L 97 12/26/17 09:00 12/26/17 11:40 Temperature 98.6 F Pulse Rate 81 Respiratory Rate 20 20 Blood Pressure 111/65 Pulse Oximetry 97 Intake & Output 12/25/17 12/26/17 12/26/17 18:59 06:59 18:59 Intake Total 400 / 400 500 / 500 850 / 850 Balance 400 / 400 500 / 500 850 / 850 Weight 88 kg Intake: IV 200 / 200 Cubicin Inj 1,000 MG In NS Inj 100 / 100 100 ML @ 200 mls/hr IV.SIG Q24H PAUL Rx#:[id number] INVanz Inj 1,000 MG In NS Inj 100 / 100 100 ML @ 100 mls/hr IV.SIG Q24H PAUL Rx#:[id number] Oral 400 / 400 300 / 300 850 / 850 Other: # Voids 1 # Incontinent Voids 6 6 Date of Last Bowel Movement 12/25/17 12/25/17 12/25/17 # Bowel Movements 2 0 1 # Incontinent Bowel Movements 4 Narrative: GENERAL: This is a well-nourished, well-developed patient, in no apparent distress. In a halo CARDIOVASCULAR: RRR, no gallops, or rubs. RESPIRATORY: Fair air entry bilaterally. No W, R, or R GASTROINTESTINAL: Abdomen soft, non-tender, nondistended. Positive bowel sounds MUSCULOSKELETAL: Extremities without clubbing, cyanosis, or edema. Pedal pulses appreciated NEUROLOGICAL: Somnolent but woke up to voice patient was able to wiggle his toes and move his feet Results - Labs CBC & Chem 7: 07/02/18 21:09 12/23/17 21:09 Assessment and Plan - Plan 57-year-old male with epidural abscess, discitis, osteomyelitis of the cervical spine. Patient is status post surgical intervention. Currently on antibiotics treatment. Needs SNF placement. ID following for antibiotics. 12/25: Continue IV antibiotic per ID recommendation with weekly lab check, neuro check, follow with neurosurgeon 12/26: No change in the plan continue IV antibiotic ID following weekly lab work including LFTs CK A/P: Epidural abscess C7-T1 cervical discitis/osteomyelitis History of C3-6 cervical fusion status post T1 corpectomy, evacuation of spinal epidural abscess, C7-T1 interbody arthrodesis using Titanium mesh cage filled with bone graft, C7-T1 instrumental fixation using Simplicity plate and screws with placement of halo brace on 11/12/2017. Blood cultures 2 11/11 MRSA bacteremia. Wound cultures 11/12 MRSA. - Continue current antibiotic treatment with daptomycin and rifampin per ID recommendation (8-12 weeks), completion January. Discussed with Dr. Kruger who is concerned with elevated CRP and made obtain a CT - monitor lab work LFT BMP and CK weekly. - Currently in halo per NS. - Neurochecks. PT/OT up to chair daily - pain control with a bowel regimen. - air mattress. Possible bibasilar pneumonia ESBL UTI -Ertapenem prescribed by ID for 2 weeks -Monitor sputum culture if available, ID following Essential hypertension, overall controlled on metoprolol Hyperlipidemia, on statin atypical chest painlikely musculoskeletal his pain is reproducible History of tricuspid valve endocarditis 2D Echo left ventricular systolic function is normal. Mitral valve regurgitation , possibly mild to moderate. - Continue metoprolol tartrate 50 mg twice daily and amlodipine 2.5 mg p.o. daily - Holding aspirin 81 mg p.o. daily, resume when cleared by neurosurgery - Continue atorvastatin 40 mg p.o. daily for dyslipidemia Modified barium swallows showed small amount of aspiration. - speech therapy following. - ADAT. Adjustment disorder with anxiety will start Lexapro Constipation - Docusate sodium/senna 1 tablet twice daily for bowel regimen. - Miralax as needed. Superficial thrombosis Noted on RUE US. - conservative care. Insomnia - Ambien 5 mg HS prn. Improved. Prophylaxis -GI -pantoprazole -DVT - MACHO/heparin Discharge Planning To [facility] facility after completion of daptomycin
[2017-12-26] MEDS: Escitalopram 10 MG Tablet PO SCH (23:58)
[2017-12-27] MEDS: Heparin - SQ 10,000 UNITS/ML Vial SQ SCH ×3 (06:16→23:17)
[2017-12-27] MEDS: amLODIPine 5 MG Tablet PO SCH (10:25)
[2017-12-27] MEDS: Docusate Sodium 100 MG Capsule PO SCH ×2 (10:25→23:15)
[2017-12-27] MEDS: Metoprolol Tartrate 50 MG Tablet PO SCH ×2 (10:30→23:16)
[2017-12-27 11:38] LABS: Baso # (Auto) 0.1 th/mm3 (0.0-0.2); Baso % (Auto) 1.2 % (0.0-2.0); Eos # (Auto) 0.5 th/mm3 (0.0-0.4); Eos % (Auto) 8.8 % (0.0-4.0); Hematocrit 37.2 % (39.0-51.0); Hemoglobin 12.2 gm/dL (13.0-17.0); Lymph # (Auto) 1.9 th/mm3 (1.0-4.8); Lymph % (Auto) 37.1 % (9.0-44.0); Mean Corpuscular HGB Conc 32.9 % (32.0-36.0); Mean Corpuscular Hemoglobin 25.4 pg (27.0-34.0); Mean Corpuscular Volume 77.4 fL (80.0-100.0); Mean Platelet Volume 7.7 fL (7.0-11.0); Mono # (Auto) 0.6 th/mm3 (0.0-0.9); Mono % (Auto) 11.2 % (0.0-8.0); Neut # (Auto) 2.2 th/mm3 (1.8-7.7); Neut % (Auto) 41.7 % (16.0-70.0); Platelet Count 319 th/mm3 (150-450); Red Cell Distribution Width 22.7 % (11.6-17.2); White Blood Count 5.2 th/mm3 (4.0-11.0)
[2017-12-27 11:57] LABS: Albumin 2.5 g/dL (3.4-5.0); Calcium 9.2 mg/dL (8.5-10.1)
[2017-12-27 11:59] LABS: Total Protein 8.8 g/dL (6.4-8.2)
[2017-12-27] MEDS: DAPTOmycin Inj 1,000 MG in Sodium Chlor 0.9% Inj 100 ML IV.SIG SCH (15:07)
--- NOTE | 2017-12-27 15:53 | P.PNIM ---
Subjective Interval history: Was sleeping, was having apneic episodes while sleeping similar to sleep apnea, no complaints, denies any chest pain or fever.. Physical Exam Vital signs: Vital Signs 12/26/17 16:00 12/26/17 23:14 12/27/17 00:50 Temperature 98.5 F 98.4 F 97.8 F Pulse Rate 91 H 68 Respiratory Rate 20 19 20 Blood Pressure 102/70 123/80 130/76 Pulse Oximetry 97 96 95 12/27/17 05:30 12/27/17 08:00 12/27/17 12:00 Temperature 98 F 97.7 F 98 F Pulse Rate 88 79 78 Respiratory Rate 18 16 16 Blood Pressure 112/66 123/66 110/56 L Pulse Oximetry 100 99 94 L Intake & Output 12/26/17 12/27/17 12/27/17 18:59 06:59 18:59 Intake Total 1050 / 1050 1200 / 1200 Balance 1050 / 1050 1200 / 1200 Weight 88 kg 89 kg Intake: IV 200 / 200 Cubicin Inj 1,000 MG In NS Inj 100 / 100 100 ML @ 200 mls/hr IV.SIG Q24H PAUL Rx#:[id number] INVanz Inj 1,000 MG In NS Inj 100 / 100 100 ML @ 100 mls/hr IV.SIG Q24H PAUL Rx#:[id number] Oral 850 / 850 1200 / 1200 Other: # Incontinent Voids 6 6 Date of Last Bowel Movement 12/25/17 # Bowel Movements 1 # Incontinent Bowel Movements 1 Narrative: GENERAL: This is a well-nourished, well-developed patient, in no apparent distress. In a halo CARDIOVASCULAR: RRR, no gallops, or rubs. RESPIRATORY: Clear breath sounds. GASTROINTESTINAL: Abdomen soft, non-tender, nondistended. Positive bowel sounds MUSCULOSKELETAL: Extremities without clubbing, cyanosis, or edema. Pedal pulses appreciated NEUROLOGICAL: Awake, alert, wiggles both toes. Results - Labs CBC & Chem 7: 12/27/17 10:50 12/27/17 10:50 Laboratory Results - last 24 hr 12/23/17 12/27/17 12/27/17 21:09 10:50 10:50 WBC 5.2 RBC 4.80 Hgb 12.2 L Hct 37.2 L MCV 77.4 L MCH 25.4 L MCHC 32.9 RDW 22.7 H Plt Count 319 D MPV 7.7 Neut % (Auto) 41.7 Lymph % (Auto) 37.1 Mcdonough % (Auto) 11.2 H Eos % (Auto) 8.8 H Baso % (Auto) 1.2 Neut # (Auto) 2.2 Lymph # (Auto) 1.9 Mcdonough # (Auto) 0.6 Eos # (Auto) 0.5 H Baso # (Auto) 0.1 WBC Differential . Differential Comment Auto diff final Sodium Potassium Chloride Carbon Dioxide Anion Gap BUN Creatinine Estimated GFR Random Glucose Calcium Total Bilirubin 0.2 Direct Bilirubin 0.1 Indirect Bilirubin 0.1 AST 38 H ALT 70 Alkaline Phosphatase 76 Creatine Kinase 123.0 CK-MM (CK-3) % 100 CK-MB (CK-2) % 0 CK-BB (CK-1) % 0 Total Protein 8.8 H D Albumin 2.5 L 12/27/17 10:50 WBC RBC Hgb Hct MCV MCH MCHC RDW Plt Count MPV Neut % (Auto) Lymph % (Auto) Mcdonough % (Auto) Eos % (Auto) Baso % (Auto) Neut # (Auto) Lymph # (Auto) Mcdonough # (Auto) Eos # (Auto) Baso # (Auto) WBC Differential Differential Comment Sodium 138 Potassium 4.0 Chloride 102 Carbon Dioxide 26.0 Anion Gap 10 BUN 15 Creatinine 1.04 Estimated GFR 89 Random Glucose 105 Calcium 9.2 Total Bilirubin Direct Bilirubin Indirect Bilirubin AST ALT Alkaline Phosphatase Creatine Kinase CK-MM (CK-3) % CK-MB (CK-2) % CK-BB (CK-1) % Total Protein Albumin Assessment and Plan - Plan Epidural abscess C7-T1 cervical discitis/osteomyelitis History of C3-6 cervical fusion status post T1 corpectomy, evacuation of spinal epidural abscess, C7-T1 interbody arthrodesis using Titanium mesh cage filled with bone graft, C7-T1 instrumental fixation using Simplicity plate and screws with placement of halo brace on 11/12/2017. Blood cultures 2 11/11 MRSA bacteremia. Wound cultures 11/12 MRSA. - Continue current antibiotic treatment with daptomycin and rifampin per ID recommendation (8-12 weeks), completion January. - monitor lab work LFT BMP and CK weekly. Stable presently. - Currently in halo per NS. - Neurochecks. PT/OT up to chair daily - pain control with a bowel regimen. - air mattress. Possible bibasilar pneumonia ESBL UTI -Ertapenem prescribed by ID for 2 weeks, finish January 02, 2018. Essential hypertension, overall controlled on metoprolol, Norvasc, clonidine as needed Hyperlipidemia, on statin atypical chest painlikely musculoskeletal his pain is reproducible History of tricuspid valve endocarditis 2D Echo left ventricular systolic function is normal. Mitral valve regurgitation , possibly mild to moderate. - Continue metoprolol tartrate 50 mg twice daily and amlodipine 2.5 mg p.o. daily - Holding aspirin 81 mg p.o. daily, resume when cleared by neurosurgery - Continue atorvastatin 40 mg p.o. daily for dyslipidemia Modified barium swallows showed small amount of aspiration. - speech therapy following. - ADAT. Adjustment disorder with anxiety-Lexapro. Constipation - Docusate sodium/senna 1 tablet twice daily for bowel regimen. - Miralax as needed. Superficial thrombosis Noted on RUE US. - conservative care. Insomnia - Ambien 5 mg HS prn. Improved. Prophylaxis -GI -pantoprazole -DVT - MACHO/heparin Discharge Planning To shelter facility after completion of daptomycin
[2017-12-27] MEDS: Escitalopram 10 MG Tablet PO SCH (23:15)
[2017-12-28] MEDS: Heparin - SQ 10,000 UNITS/ML Vial SQ SCH ×3 (06:42→22:59)
[2017-12-28] MEDS: Metoprolol Tartrate 50 MG Tablet PO SCH ×2 (10:22→22:58)
[2017-12-28] MEDS: Docusate Sodium 100 MG Capsule PO SCH ×2 (10:22→22:58)
[2017-12-28] MEDS: amLODIPine 5 MG Tablet PO SCH (10:23)
--- NOTE | 2017-12-28 13:18 | P.PNIM ---
Subjective Interval history: No overnight events, no change in mental status. No new neurologic deficits. Denies any headache. No shortness of breath or chest pain. Physical Exam Vital signs: Vital Signs 12/27/17 16:00 12/27/17 20:00 12/28/17 00:00 Temperature 98.2 F 97.7 F 97.8 F Pulse Rate 77 78 80 Respiratory Rate 16 20 20 Blood Pressure 120/59 L 130/63 116/86 Pulse Oximetry 95 98 98 12/28/17 04:00 12/28/17 08:00 Temperature 97.8 F 97.5 F L Pulse Rate 85 79 Respiratory Rate 20 18 Blood Pressure 148/77 H 114/78 Pulse Oximetry 100 98 Intake & Output 12/27/17 12/28/17 12/28/17 18:59 06:59 18:59 Intake Total 200 / 200 160 / 160 Balance 200 / 200 160 / 160 Intake: IV 200 / 200 100 / 100 Cubicin Inj 1,000 MG In NS Inj 100 / 100 100 ML @ 200 mls/hr IV.SIG Q24H PAUL Rx#:[id number] INVanz Inj 1,000 MG In NS Inj 100 / 100 100 / 100 100 ML @ 100 mls/hr IV.SIG Q24H PAUL Rx#:[id number] Oral 60 / 60 Other: # Incontinent Voids 3 Date of Last Bowel Movement 12/25/17 12/28/17 12/28/17 # Incontinent Bowel Movements 1 Results - Labs CBC & Chem 7: 12/27/17 10:50 12/27/17 10:50 Assessment and Plan - Plan Epidural abscess C7-T1 cervical discitis/osteomyelitis History of C3-6 cervical fusion status post T1 corpectomy, evacuation of spinal epidural abscess, C7-T1 interbody arthrodesis using Titanium mesh cage filled with bone graft, C7-T1 instrumental fixation using Simplicity plate and screws with placement of halo brace on 11/12/2017. Blood cultures 2 11/11 MRSA bacteremia. Wound cultures 11/12 MRSA. - Continue current antibiotic treatment with daptomycin and rifampin per ID recommendation (8-12 weeks), completion January. - monitor lab work LFT BMP and CK every Saturday, stable. - Currently in halo per NS. Pain control with bowel regimen. - Neurochecks. PT/OT up to chair daily - Possible bibasilar pneumonia ESBL UTI -Ertapenem prescribed by ID for 2 weeks, finish January 02, 2018. Essential hypertension, overall controlled on metoprolol, Norvasc, clonidine as needed Hyperlipidemi- on statin, atypical chest pain likely musculoskeletal his pain is reproducible History of tricuspid valve endocarditis 2D Echo left ventricular systolic function is normal. Mitral valve regurgitation , possibly mild to moderate. - Continue metoprolol tartrate 50 mg twice daily and amlodipine 2.5 mg p.o. daily - Holding aspirin 81 mg p.o. daily, resume when cleared by neurosurgery - Continue atorvastatin 40 mg p.o. daily for dyslipidemia Modified barium swallows showed small amount of aspiration. - speech therapy following. - ADAT. Adjustment disorder with anxiety-Lexapro. Constipation - Docusate sodium/senna 1 tablet twice daily for bowel regimen. - Miralax as needed. Superficial thrombosis Noted on RUE US. - conservative care. Insomnia - Ambien 5 mg HS prn. Improved. Prophylaxis -GI -pantoprazole -DVT - MACHO/heparin Discharge Planning To alf facility after completion of daptomycin
[2017-12-28] MEDS: DAPTOmycin Inj 1,000 MG in Sodium Chlor 0.9% Inj 100 ML IV.SIG SCH (13:26)
[2017-12-28] MEDS: Escitalopram 10 MG Tablet PO SCH (22:58)
[2017-12-29] MEDS: Heparin - SQ 10,000 UNITS/ML Vial SQ SCH ×3 (06:11→22:33)
[2017-12-29] MEDS: amLODIPine 5 MG Tablet PO SCH (09:55)
[2017-12-29] MEDS: Metoprolol Tartrate 50 MG Tablet PO SCH ×2 (09:55→22:31)
[2017-12-29] MEDS: Docusate Sodium 100 MG Capsule PO SCH ×2 (10:01→22:32)
[2017-12-29] MEDS: DAPTOmycin Inj 1,000 MG in Sodium Chlor 0.9% Inj 100 ML IV.SIG SCH (13:28)
--- NOTE | 2017-12-29 15:20 | P.PNIM ---
Subjective Interval history: No overnight events, no complaints. Denies any headache, no new neurologic deficits. Finishing antibiotics. Physical Exam Vital signs: Vital Signs 12/28/17 16:00 12/28/17 20:00 12/29/17 00:00 Temperature 97.7 F 98.2 F 98.0 F Pulse Rate 82 69 67 Respiratory Rate 18 14 16 Blood Pressure 130/64 140/62 125/70 Pulse Oximetry 99 95 94 L 12/29/17 04:00 12/29/17 10:00 12/29/17 12:00 Temperature 98.1 F 98.1 F 97.7 F Pulse Rate 84 80 80 Respiratory Rate 18 18 20 Blood Pressure 120/69 122/74 117/56 L Pulse Oximetry 96 97 100 Intake & Output 12/28/17 12/29/17 12/29/17 18:59 06:59 18:59 Intake Total 520 / 520 220 / 220 200 / 200 Balance 520 / 520 220 / 220 200 / 200 Intake: IV 100 / 100 100 / 100 200 / 200 Cubicin Inj 1,000 MG In NS Inj 100 / 100 100 / 100 100 ML @ 200 mls/hr IV.SIG Q24H PAUL Rx#:[id number] INVanz Inj 1,000 MG In NS Inj 100 / 100 100 / 100 100 ML @ 100 mls/hr IV.SIG Q24H PAUL Rx#:[id number] Oral 420 / 420 Oral Supplement 120 / 120 Other: # Voids 2 # Incontinent Voids 3 Date of Last Bowel Movement 12/28/17 12/28/17 # Bowel Movements 2 # Incontinent Bowel Movements 1 Narrative: GENERAL: This is a well-nourished, well-developed patient, in no apparent distress. Halo in place. CARDIOVASCULAR: RRR, no gallops, or rubs. RESPIRATORY: Clear breath sounds. GASTROINTESTINAL: Abdomen soft, non-tender, nondistended. MUSCULOSKELETAL: No edema. NEUROLOGICAL: Awake, alert, oriented to self, follows commands, wiggles both toes. Results - Labs CBC & Chem 7: 12/27/17 10:50 12/27/17 10:50 Assessment and Plan - Plan Epidural abscess C7-T1 cervical discitis/osteomyelitis History of C3-6 cervical fusion status post T1 corpectomy, evacuation of spinal epidural abscess, C7-T1 interbody arthrodesis using Titanium mesh cage filled with bone graft, C7-T1 instrumental fixation using Simplicity plate and screws with placement of halo brace on 11/12/2017. Blood cultures 2 11/11 MRSA bacteremia. Wound cultures 11/12 MRSA. - Continue current antibiotic treatment with daptomycin and rifampin per ID recommendation (8-12 weeks), completion January. - monitor lab work LFT BMP and CK every Saturday, stable. - Currently in halo per NS. Pain control with bowel regimen. - Neurochecks. PT/OT up to chair daily - Possible bibasilar pneumonia ESBL UTI -Ertapenem prescribed by ID for 2 weeks, finish January 02, 2018. Essential hypertension, overall controlled on metoprolol, Norvasc, clonidine as needed Hyperlipidemi- on statin, atypical chest pain likely musculoskeletal his pain is reproducible History of tricuspid valve endocarditis 2D Echo left ventricular systolic function is normal. Mitral valve regurgitation , possibly mild to moderate. - Continue metoprolol tartrate 50 mg twice daily and amlodipine 2.5 mg p.o. daily - Holding aspirin 81 mg p.o. daily, resume when cleared by neurosurgery - Continue atorvastatin 40 mg p.o. daily for dyslipidemia Modified barium swallows showed small amount of aspiration. - speech therapy following. - ADAT. Adjustment disorder with anxiety-Lexapro. Constipation - Docusate sodium/senna 1 tablet twice daily for bowel regimen. - Miralax as needed. Superficial thrombosis Noted on RUE US. - conservative care. Insomnia - Ambien 5 mg HS prn. Improved. Prophylaxis -GI -pantoprazole -DVT - MACHO/heparin Discharge Planning To group home facility/[facility] after completion of daptomycin
[2017-12-29] MEDS: Escitalopram 10 MG Tablet PO SCH (22:31)
[2017-12-30] MEDS: Heparin - SQ 10,000 UNITS/ML Vial SQ SCH ×3 (06:14→21:50)
--- NOTE | 2017-12-30 09:00 | P.PNIM ---
Subjective Interval history: Follow up cervical discitis/epidural abscess. Patient seen and examined, lying in bed comfortably in nad. Sleeping, awakens to voice. Generalized weakness noted. Patient denies any pain. Has been eating well. No abdominal pain, nausea , vomiting. Physical Exam Vital signs: Vital Signs 12/29/17 10:00 12/29/17 12:00 12/29/17 16:21 Temperature 98.1 F 97.7 F 98.6 F Pulse Rate 80 80 86 Respiratory Rate 18 20 18 Blood Pressure 122/74 117/56 L 106/68 Pulse Oximetry 97 100 12/29/17 20:00 12/30/17 00:00 12/30/17 04:00 Temperature 98.1 F 98.1 F 98.3 F Pulse Rate 82 77 71 Respiratory Rate 18 18 Blood Pressure 113/68 125/66 164/94 H Pulse Oximetry 98 96 97 Intake & Output 12/29/17 12/30/17 12/30/17 18:59 06:59 18:59 Intake Total 200 / 200 100 / 100 Balance 200 / 200 100 / 100 Intake: IV 200 / 200 Cubicin Inj 1,000 MG In NS Inj 100 / 100 100 ML @ 200 mls/hr IV.SIG Q24H PAUL Rx#:[id number] INVanz Inj 1,000 MG In NS Inj 100 / 100 100 ML @ 100 mls/hr IV.SIG Q24H PAUL Rx#:[id number] Oral 100 / 100 Other: # Incontinent Voids 1 # Bowel Movements 1 # Incontinent Bowel Movements 1 Narrative: GENERAL: This is a well-nourished, well-developed patient, in no apparent distress. Halo in place. CARDIOVASCULAR: RRR, no gallops, or rubs. RESPIRATORY: Clear breath sounds. GASTROINTESTINAL: Abdomen soft, non-tender, nondistended. MUSCULOSKELETAL: No edema. NEUROLOGICAL: Awake, alert, oriented to self, follows commands, wiggles both toes. - Constitutional no acute distress - Routine HEENT Exam Head: Present: normocephalic (halo in place) - Routine Neck Exam Present: supple - Routine Cardiovascular Exam Present: RRR - Routine Abdominal Exam Present: soft - Routine Neurological Exam Present: alert - Detailed Neurological Exam: Coma Scale Eye Opening: Spontaneous - Routine Psychiatric Exam Present: normal affect Results - Labs CBC & Chem 7: 12/30/17 06:38 12/30/17 06:38 Assessment and Plan - Plan This is a 57-year-old male patient with: Epidural abscess C7-T1 cervical discitis/osteomyelitis History of C3-6 cervical fusion - Status post T1 corpectomy, evacuation of spinal epidural abscess, C7-T1 interbody arthrodesis using Titanium mesh cage filled with bone graft, C7-T1 instrumental fixation using Simplicity plate and screws with placement of halo brace on 11/12/2017. - Blood cultures 2 11/11 MRSA bacteremia. Wound cultures 11/12 MRSA. - Continue current antibiotic treatment with daptomycin and rifampin per ID recommendation (8-12 weeks), completion January. - monitor lab work LFT BMP and CK every Saturday, stable. - Currently in halo per NS. Pain control with bowel regimen. - Continue neuro checks. - PT/OT up to chair daily Possible bibasilar pneumonia ESBL UTI -Ertapenem prescribed by ID for 2 weeks, finish January 02, 2018. Essential hypertension, overall controlled on metoprolol, Norvasc, clonidine as needed Hyperlipidemia - On statin, atypical chest pain likely musculoskeletal his pain is reproducible. History of tricuspid valve endocarditis - 2D Echo left ventricular systolic function is normal. Mitral valve regurgitation, possibly mild to moderate. - Continue metoprolol tartrate 50 mg twice daily and amlodipine 2.5 mg p.o. daily - Holding aspirin 81 mg p.o. daily, resume when cleared by neurosurgery - Continue atorvastatin 40 mg p.o. daily for dyslipidemia Modified barium swallows showed small amount of aspiration. - speech therapy following. - ADAT. Adjustment disorder with anxiety: Continue Lexapro. Constipation - Docusate sodium/senna for bowel regimen. - Miralax as needed. Superficial thrombosis Noted on RUE US on 11/26. - Stable. Conservative care. Heparin. Insomnia - Ambien 5 mg HS prn. Improved. Prophylaxis -GI -pantoprazole -DVT - MACHO/heparin Discharge Planning: [facility] after completion of daptomycin
[2017-12-30 09:07] LABS: Hematocrit 37.2 % (39.0-51.0); Hemoglobin 12.1 gm/dL (13.0-17.0); Mean Corpuscular HGB Conc 32.5 % (32.0-36.0); Mean Corpuscular Hemoglobin 25.2 pg (27.0-34.0); Mean Corpuscular Volume 77.7 fL (80.0-100.0); Mean Platelet Volume 8.3 fL (7.0-11.0); Platelet Count 292 th/mm3 (150-450); Red Blood Count 4.79 mil/mm3 (4.50-5.90); Red Cell Distribution Width 22.9 % (11.6-17.2); White Blood Count 6.5 th/mm3 (4.0-11.0)
[2017-12-30 09:14] LABS: Albumin 2.5 g/dL (3.4-5.0); Anion Gap 9 meq/L (5-15); Aspartate Aminotransferase 26 U/L (15-37); Blood Urea Nitrogen 19 mg/dL (7-18); Calcium 9.4 mg/dL (8.5-10.1); Carbon Dioxide 26.9 meq/L (21.0-32.0); Chloride 104 meq/L (98-107); Glomerular Filtration Rate Greater Than 89 mL/min (>89); Glucose,Random 77 mg/dL (74-106); Potassium 3.9 meq/L (3.5-5.1); Sodium 140 meq/L (136-145)
[2017-12-30 09:15] LABS: Alanine Aminotransferase 48 U/L (12-78)
[2017-12-30 09:22] LABS: Alkaline Phosphatase 74 U/L (45-117); Total Protein 8.3 g/dL (6.4-8.2)
--- NOTE | 2017-12-30 09:49 | P.PNID ---
Subjective Remarks: ID COVERAGE 57 yo male known to me from previous admission, h/o MV endocarditis, lung abscess sp tx h/o previous fusion 2 yrs ago apparently sp fall 1 month ago per mother pt started to get weaker after the fall He c/o neck pain x 2 weeks He presented with all 4 extremities progressive weakness more prominent in BLE MRI showed . Dramatic change when compared to the prior study with MRI findings consistent with C7-T1 discitis and osteomyelitis with a small epidural abscess at C7-T1 ; the abscess does cause severe central canal stenosis Pt was sen by Dr Kern who took him for emergent procedure On November 12, 2017 pt underwent T1 corpectomy, evacuation of spinal epidural abscess, C7-T1 interbody arthrodesis using Titanium mesh cage filled with bone graft, C7-T1 instrumental fixation using Simplicity plate and screws by Dr Kern Pt was started on broad spectrum abx Blood clx are positive for MRSA Notes reviewed Temps okay No new complaints LFT back to normal Antibiotics: Cubicin/Rifampin Invanz Past Medical History: MV endocarditis lung abscess Allergies/Adverse Reactions: Allergies No Known Allergies Allergy (Verified 12/21/17 11:30) Objective Vital Signs 12/29/17 10:00 12/29/17 12:00 12/29/17 16:21 Temperature 98.1 F 97.7 F 98.6 F Pulse Rate 80 80 86 Respiratory Rate 18 20 18 Blood Pressure 122/74 117/56 L 106/68 Pulse Oximetry 97 100 12/29/17 20:00 12/30/17 00:00 12/30/17 04:00 Temperature 98.1 F 98.1 F 98.3 F Pulse Rate 82 77 71 Respiratory Rate 18 18 Blood Pressure 113/68 125/66 164/94 H Pulse Oximetry 98 96 97 Intake & Output 12/29/17 12/30/17 12/30/17 18:59 06:59 18:59 Intake Total 200 / 200 100 / 100 Balance 200 / 200 100 / 100 Intake: IV 200 / 200 Cubicin Inj 1,000 MG In NS Inj 100 / 100 100 ML @ 200 mls/hr IV.SIG Q24H PAUL Rx#:[id number] INVanz Inj 1,000 MG In NS Inj 100 / 100 100 ML @ 100 mls/hr IV.SIG Q24H PAUL Rx#:[id number] Oral 100 / 100 Other: # Incontinent Voids 1 # Bowel Movements 1 # Incontinent Bowel Movements 1 Lab - Hematology Results 12/30/17 06:38 WBC 6.5 RBC 4.79 Hgb 12.1 L Hct 37.2 L MCV 77.7 L MCH 25.2 L MCHC 32.5 RDW 22.9 H Plt Count 292 MPV 8.3 Lab - Chemistry Results 12/30/17 06:38 Sodium 140 Potassium 3.9 Chloride 104 Carbon Dioxide 26.9 Anion Gap 9 BUN 19 H Creatinine 0.89 Estimated GFR Greater than 89 Random Glucose 77 Calcium 9.4 Total Bilirubin 0.2 Direct Bilirubin 0.1 Indirect Bilirubin 0.1 AST 26 ALT 48 Alkaline Phosphatase 74 Total Protein 8.3 H Albumin 2.5 L Physical Exam: Physical Exam CONSTITUTIONAL/GENERAL: Awaken easily, NAD. SKIN: Cool and dry, no generalized rash. HEAD:HALO in place EYES: Pupils equal and round and reactive. Extraocular motions intact. No scleral icterus. No injection or drainage. MOUTH: Moist oral mucosa CARDIOVASCULAR: Regular rate and rhythm without murmurs, gallops, or rubs. RESPIRATORY/CHEST: Clear to auscultation. Breath sounds equal bilaterally. No wheezes, rales, or rhonchi. GASTROINTESTINAL: Abdomen soft, non-tender, nondistended. No guarding. Bowel sounds present. GENITOURINARY: Without palpable bladder distension. MUSCULOSKELETAL: Extremities without clubbing, cyanosis, or edema. No calf tenderness. NEUROLOGICAL: awake alert. seems to have 1/5 all extremities. PSYCHIATRIC: Calm and cooprative. LINE: No evidence of infection Assessment and Plan - Plan IMPRESSION C7-T1 discitis with an epidural abscess, MRSA Incomplete tetraplegia: some improvemment noted sp emergent decompression vanco TERRY 2 , dapto 0.25 MRI with new cord edema - that proabbly explainning nrew neuro findings MRSA sepsis H/o MRSA TV endocarditis and lung abscess 2 D echo neg Abx associated diarrhea,c.diff negative as of 11/21 - increase of diarrhea ESR persistently elevated CRP from undetectable t to 15 UTI ESBL + RECOMMENDATION Continue ERtapenem, give x 2 weeks - end date ordered on [facility] Cont Dapto + rifampin thru 01/11 tenatively (8 weeks), then will switch to po - monitor CKs weekly while on dapto - Dapto plus Rifampin for 8-12 weeks followed by detention suppression due to pt's history of relapse and indwelling hardware CBC with diff, CMP, CK level, CRP each week to be ordered by hospitalist Kailey and followed by them. Please call sooner if any new changes or abnormal labs. Monitor progress Follow labs weekly
[2017-12-30] MEDS: Metoprolol Tartrate 50 MG Tablet PO SCH ×2 (10:33→21:52)
[2017-12-30] MEDS: amLODIPine 5 MG Tablet PO SCH (10:33)
[2017-12-30] MEDS: Docusate Sodium 100 MG Capsule PO SCH ×2 (10:34→21:52)
[2017-12-30] MEDS: DAPTOmycin Inj 1,000 MG in Sodium Chlor 0.9% Inj 100 ML IV.SIG SCH (14:30)
[2017-12-30] MEDS: Escitalopram 10 MG Tablet PO SCH (21:52)
[2017-12-31] MEDS: Heparin - SQ 10,000 UNITS/ML Vial SQ SCH ×3 (05:29→22:08)
[2017-12-31] MEDS: amLODIPine 5 MG Tablet PO SCH (08:19)
[2017-12-31] MEDS: Docusate Sodium 100 MG Capsule PO SCH ×2 (08:19→22:09)
[2017-12-31] MEDS: Metoprolol Tartrate 50 MG Tablet PO SCH ×2 (08:19→22:09)
[2017-12-31] MEDS: DAPTOmycin Inj 1,000 MG in Sodium Chlor 0.9% Inj 100 ML IV.SIG SCH (13:53)
--- NOTE | 2017-12-31 15:14 | P.PN ---
Subjective Interval history: Follow-up visit cervical discitis/epidural abscess. Patient seen and examined today. Reports he is doing okay. As per nursing, no acute issues overnight. He was out of bed to stretcher chair today. Physical Exam Vital signs: Vital Signs 12/30/17 16:00 12/30/17 20:50 12/31/17 00:20 Temperature 98.4 F 97.6 F Pulse Rate 77 79 75 Respiratory Rate 19 18 18 Blood Pressure 112/62 123/63 119/58 L Pulse Oximetry 99 100 98 12/31/17 05:15 12/31/17 07:54 12/31/17 12:00 Temperature 98.7 F 97.4 F L 98.6 F Pulse Rate 88 76 88 Respiratory Rate 18 Blood Pressure 121/85 114/62 142/83 H Pulse Oximetry 94 L 98 99 Intake & Output 12/30/17 12/31/17 12/31/17 18:59 06:59 18:59 Intake Total 300 / 300 450 / 450 Balance 300 / 300 450 / 450 Weight 172.9 kg Intake: IV 200 / 200 Cubicin Inj 1,000 MG In NS Inj 100 / 100 100 ML @ 200 mls/hr IV.SIG Q24H PAUL Rx#:[id number] INVanz Inj 1,000 MG In NS Inj 100 / 100 100 ML @ 100 mls/hr IV.SIG Q24H PAUL Rx#:[id number] Oral 100 / 100 450 / 450 Other: # Incontinent Voids 4 Date of Last Bowel Movement 12/30/17 12/31/17 # Bowel Movements 1 0 # Incontinent Bowel Movements 0 Narrative: GENERAL: This is a well-nourished, well-developed patient, in no apparent distress. SKIN: Warm and dry HEENT: Pupils equal round. Nose without bleeding. Airway patent. Halo in place. NECK: Trachea midline. CARDIOVASCULAR: Regular rate and rhythm without murmurs, gallops, or rubs. RESPIRATORY: Clear to auscultation. Breath sounds equal bilaterally. No wheezes , rales, or rhonchi. GASTROINTESTINAL: Abdomen soft, non-tender, nondistended. Bowel Sounds normoactive x4. MUSCULOSKELETAL: Extremities without clubbing, cyanosis, or edema. NEUROLOGICAL: Awake and alert. Moves all extremities, LUE weakness, BLE weakness. Slow speech. Results - Labs CBC & Chem 7: 12/30/17 06:38 12/30/17 06:38 - Procedures Status post T1 corpectomy, evacuation of spinal epidural abscess, C7-T1 interbody arthrodesis using Titanium mesh cage filled with bone graft C7-T1 instrumental fixation using Simplicity plate and screws with placement of halo brace on 11/12/2017. Assessment and Plan - Assessment (1) Cervical discitis Code(s): M46.42 - Discitis, unspecified, cervical region Status: Acute (2) Epidural abscess Code(s): G06.2 - Extradural and subdural abscess, unspecified Status: Acute - Plan 56-year-old very pleasant gentleman with some developmental delay is brought in by his sister progressive worsening of strength in both arms and both legs, status post fall 1 month ago prior to admission Epidural abscess C7-T1 cervical discitis/osteomyelitis History of C3-6 cervical fusion -Status post T1 corpectomy, evacuation of spinal epidural abscess, C7-T1 interbody arthrodesis using Titanium mesh cage filled with bone graft, C7-T1 instrumental fixation using Simplicity plate and screws with placement of halo brace on 11/12/2017. -Blood cultures 2 11/11 MRSA bacteremia. Wound cultures 11/12 MRSA. -Continue current antibiotic treatment with daptomycin and rifampin per ID recommendation (8-12 weeks), completion 01/11/18 -Monitor labs -LFT BMP and CK every Saturday, stable. -Currently in halo per NS. Pain control with bowel regimen. -Continue neuro checks. -PT/OT up to chair daily. Plan to [facility] once ABX completed Possible bibasilar pneumonia ESBL UTI -Ertapenem prescribed by ID for 2 weeks, finish January 02, 2018. Essential hypertension Hyperlipidemia History of tricuspid valve endocarditis Hx atypical chest pain likely musculoskeletal his pain is reproducible. -Continue metoprolol, Norvasc, clonidine as needed -Continue statin -2D Echo left ventricular systolic function is normal. Mitral valve regurgitation, possibly mild to moderate. -Holding aspirin 81 mg p.o. daily, resume when cleared by neurosurgery Modified barium swallows showed small amount of aspiration. -Speech therapy following. -ADAT. Adjustment disorder with anxiety -Continue Lexapro. Constipation -Docusate sodium/senna for bowel regimen. -Miralax as needed. Superficial thrombosis -Noted on RUE US on 06/05. -Stable. Conservative care. Heparin. Insomnia -Ambien 5 mg HS prn. Improved. GI prop -pantoprazole DVT prop MACHO/heparin
[2017-12-31] MEDS: Escitalopram 10 MG Tablet PO SCH (22:09)
[2018-01-01] MEDS: Heparin - SQ 10,000 UNITS/ML Vial SQ SCH ×3 (05:27→22:54)
[2018-01-01] MEDS: amLODIPine 5 MG Tablet PO SCH (10:06)
[2018-01-01] MEDS: Metoprolol Tartrate 50 MG Tablet PO SCH ×2 (10:07→22:52)
[2018-01-01] MEDS: Docusate Sodium 100 MG Capsule PO SCH ×2 (10:07→22:52)
--- NOTE | 2018-01-01 11:34 | P.PN ---
Subjective Interval history: Follow-up visit cervical discitis/epidural abscess. Patient seen and examined today. Reports he is doing okay.PT at the bedside. Continues to have weakness. Halo noted to be slightly lose, call out to orthotech done as per PT. Otherwise, denies pain and discomfort. Denies SOB/ dyspnea. Denies chest pain. Denies fevers, chills, n/v/d. Denies dysuria. Physical Exam Vital signs: Vital Signs 12/31/17 12:00 12/31/17 16:00 12/31/17 22:00 Temperature 98.6 F 99.4 F 98.8 F Pulse Rate 88 86 68 Respiratory Rate 18 18 19 Blood Pressure 142/83 H 128/77 125/66 Pulse Oximetry 99 98 96 01/01/18 01:53 01/01/18 06:20 01/01/18 08:11 Temperature 97.8 F 98 F 97.6 F Pulse Rate 88 74 80 Respiratory Rate 20 19 18 Blood Pressure 118/74 114/75 Pulse Oximetry 97 98 99 01/01/18 08:17 Temperature Pulse Rate Respiratory Rate Blood Pressure 136/71 Pulse Oximetry Intake & Output 12/31/17 01/01/18 01/01/18 18:59 06:59 18:59 Intake Total 500 / 500 Balance 500 / 500 Weight 173 kg Intake: Oral 500 / 500 Other: # Voids 5 # Incontinent Voids 7 Date of Last Bowel Movement 12/31/17 12/31/17 # Incontinent Bowel Movements 2 4 Narrative: GENERAL: This is a well-nourished, well-developed patient, in no apparent distress. SKIN: Warm and dry HEENT: Pupils equal round. Nose without bleeding. Airway patent. Halo in place. NECK: Trachea midline. CARDIOVASCULAR: Regular rate and rhythm without murmurs, gallops, or rubs. RESPIRATORY: Clear to auscultation. Breath sounds equal bilaterally. No wheezes , rales, or rhonchi. GASTROINTESTINAL: Abdomen soft, non-tender, nondistended. Bowel Sounds normoactive x4. MUSCULOSKELETAL: Extremities without clubbing, cyanosis, or edema. NEUROLOGICAL: Awake and alert. Moves all extremities, LUE weakness, BLE weakness. Slow speech. Results - Labs CBC & Chem 7: 12/30/17 06:38 12/30/17 06:38 Laboratory Results - last 24 hr 12/31/17 06:38 Total Creatine Kinase Cancelled - Procedures Status post T1 corpectomy, evacuation of spinal epidural abscess, C7-T1 interbody arthrodesis using Titanium mesh cage filled with bone graft C7-T1 instrumental fixation using Simplicity plate and screws with placement of halo brace on 11/12/2017. Assessment and Plan - Assessment (1) Cervical discitis Code(s): M46.42 - Discitis, unspecified, cervical region Status: Acute (2) Epidural abscess Code(s): G06.2 - Extradural and subdural abscess, unspecified Status: Acute - Plan 56-year-old very pleasant gentleman with some developmental delay is brought in by his sister progressive worsening of strength in both arms and both legs, status post fall 1 month ago prior to admission Epidural abscess C7-T1 cervical discitis/osteomyelitis History of C3-6 cervical fusion -Status post T1 corpectomy, evacuation of spinal epidural abscess, C7-T1 interbody arthrodesis using Titanium mesh cage filled with bone graft, C7-T1 instrumental fixation using Simplicity plate and screws with placement of halo brace on 11/12/2017. -Blood cultures 2 11/11 MRSA bacteremia. Wound cultures 11/12 MRSA. -Continue current antibiotic treatment with daptomycin and rifampin per ID recommendation (8-12 weeks), completion 01/11/18 -Monitor labs -LFT BMP and CK every Saturday, stable. -Currently in halo per NS. Pain control with bowel regimen. -Continue neuro checks. -PT/OT up to chair daily. Plan to DC to [facility] once ABX completed Possible bibasilar pneumonia ESBL UTI -Ertapenem prescribed by ID for 2 weeks, finish January 02, 2018. Essential hypertension Hyperlipidemia History of tricuspid valve endocarditis Hx atypical chest pain likely musculoskeletal his pain is reproducible. -Continue metoprolol, Norvasc, clonidine as needed -Continue statin -2D Echo left ventricular systolic function is normal. Mitral valve regurgitation, possibly mild to moderate. -Holding aspirin 81 mg p.o. daily, resume when cleared by neurosurgery Modified barium swallows showed small amount of aspiration. -Speech therapy following. -ADAT. Adjustment disorder with anxiety -Continue Lexapro. Constipation -Docusate sodium/senna for bowel regimen. -Miralax as needed. Superficial thrombosis -Noted on RUE US on 11/26. -Stable. Conservative care. Heparin. Insomnia -Ambien 5 mg HS prn. Improved. GI prop -pantoprazole DVT prop MACHO/heparin Code Status: Full code Discussed Condition With: Patient, nursing, PT Discharge Planning: Plan to DC to [facility] when antibiotic is completed.
[2018-01-01] MEDS: DAPTOmycin Inj 1,000 MG in Sodium Chlor 0.9% Inj 100 ML IV.SIG SCH (14:00)
--- NOTE | 2018-01-01 14:52 | P.PNID ---
Subjective Remarks: ID COVERAGE 57 yo male known to me from previous admission, h/o MV endocarditis, lung abscess sp tx h/o previous fusion 2 yrs ago apparently sp fall 1 month ago per mother pt started to get weaker after the fall He c/o neck pain x 2 weeks He presented with all 4 extremities progressive weakness more prominent in BLE MRI showed . Dramatic change when compared to the prior study with MRI findings consistent with C7-T1 discitis and osteomyelitis with a small epidural abscess at C7-T1 ; the abscess does cause severe central canal stenosis Pt was sen by Dr Kern who took him for emergent procedure On November 12, 2017 pt underwent T1 corpectomy, evacuation of spinal epidural abscess, C7-T1 interbody arthrodesis using Titanium mesh cage filled with bone graft, C7-T1 instrumental fixation using Simplicity plate and screws by Dr Kern Pt was started on broad spectrum abx Blood clx are positive for MRSA Notes reviewed Temps ok No new complaints LFT back to normal Labs today still pending Antibiotics: Cubicin/Rifampin Invanz - to finish 01/02 Past Medical History: MV endocarditis lung abscess Allergies/Adverse Reactions: Allergies No Known Allergies Allergy (Verified 12/21/17 11:30) Objective Vital Signs 12/31/17 16:00 12/31/17 22:00 01/01/18 01:53 Temperature 99.4 F 98.8 F 97.8 F Pulse Rate 86 68 88 Respiratory Rate 18 19 20 Blood Pressure 128/77 125/66 Pulse Oximetry 98 96 97 01/01/18 06:20 01/01/18 08:11 01/01/18 08:17 Temperature 98 F 97.6 F Pulse Rate 74 80 Respiratory Rate 19 18 Blood Pressure 118/74 114/75 136/71 Pulse Oximetry 98 99 01/01/18 12:00 Temperature 97.3 F L Pulse Rate 75 Respiratory Rate 18 Blood Pressure 109/56 L Pulse Oximetry 98 Intake & Output 12/31/17 01/01/18 01/01/18 18:59 06:59 18:59 Intake Total 500 / 500 Balance 500 / 500 Weight 173 kg Intake: Oral 500 / 500 Other: # Voids 5 # Incontinent Voids 7 Date of Last Bowel Movement 12/31/17 12/31/17 # Incontinent Bowel Movements 2 4 Lab - Chemistry Results 12/31/17 06:38 Total Creatine Kinase Cancelled Physical Exam: Physical Exam CONSTITUTIONAL/GENERAL: Awaken easily, NAD. SKIN: Cool and dry, no generalized rash. HEAD:HALO in place EYES: Pupils equal and round and reactive. Extraocular motions intact. No scleral icterus. No injection or drainage. MOUTH: Moist oral mucosa CARDIOVASCULAR: Regular rate and rhythm without murmurs, gallops, or rubs. RESPIRATORY/CHEST: Clear to auscultation. Breath sounds equal bilaterally. No wheezes, rales, or rhonchi. GASTROINTESTINAL: Abdomen soft, non-tender, nondistended. No guarding. Bowel sounds present. GENITOURINARY: Without palpable bladder distension. MUSCULOSKELETAL: Extremities without clubbing, cyanosis, or edema. No calf tenderness. NEUROLOGICAL: awake alert. seems to have 1/5 all extremities. PSYCHIATRIC: Calm and cooperative LINE: No evidence of infection Assessment and Plan - Plan IMPRESSION C7-T1 discitis with an epidural abscess, MRSA Incomplete tetraplegia: some improvemment noted sp emergent decompression vanco TERRY 2 , dapto 0.25 MRI with new cord edema - that proabbly explainning nrew neuro findings MRSA sepsis H/o MRSA TV endocarditis and lung abscess 2 D echo neg Abx associated diarrhea,c.diff negative as of 11/21 - increase of diarrhea ESR persistently elevated CRP from undetectable t to 15 UTI ESBL + RECOMMENDATION Continue ERtapenem, give x 2 weeks - end date January 02 Cont Dapto + rifampin thru 01/11 tenatively (8 weeks), then will switch to po - monitor CKs weekly while on dapto - Dapto plus Rifampin for 8-12 weeks followed by meterman suppression due to pt's history of relapse and indwelling hardware CBC with diff, CMP, CK level, CRP each week to be ordered by hospitalist Kailey and followed by them. Please call sooner if any new changes or abnormal labs. Monitor progress Follow labs weekly I will be off January 02- Other ID MD covering in my absence if needed Dr Aurora Kruger will be back SaturdayJanuary 06
[2018-01-01] MEDS: Escitalopram 10 MG Tablet PO SCH (22:53)
[2018-01-02] MEDS: Heparin - SQ 10,000 UNITS/ML Vial SQ SCH ×3 (06:04→22:32)
[2018-01-02] MEDS: Metoprolol Tartrate 50 MG Tablet PO SCH ×2 (08:20→22:33)
[2018-01-02] MEDS: Docusate Sodium 100 MG Capsule PO SCH ×2 (08:21→22:33)
[2018-01-02] MEDS: amLODIPine 5 MG Tablet PO SCH (08:21)
--- NOTE | 2018-01-02 11:27 | P.PNIM ---
Subjective Interval history: No new complaints from the patient. Antibiotics to continue until 01/11/2018. This is discussed with the patient. Physical Exam Vital signs: Vital Signs 01/01/18 12:00 01/01/18 16:15 01/01/18 20:00 Temperature 97.3 F L 98.5 F 97.9 F Pulse Rate 75 77 73 Respiratory Rate 18 Blood Pressure 109/56 L 108/57 L 115/55 L Pulse Oximetry 98 94 L 99 01/02/18 00:00 01/02/18 04:00 01/02/18 09:25 Temperature 97.9 F 97.5 F L Pulse Rate 77 79 71 Respiratory Rate 18 Blood Pressure 109/71 96/54 L 106/56 L Pulse Oximetry 97 99 98 Intake & Output 01/01/18 01/02/18 01/02/18 18:59 06:59 18:59 Intake Total 100 / 100 Balance 100 / 100 Weight 86.5 kg Intake: IV 100 / 100 INVanz Inj 1,000 MG In NS Inj 100 / 100 100 ML @ 100 mls/hr IV.SIG Q24H PAUL Rx#:[id number] Other: # Voids 1 Date of Last Bowel Movement 01/01/18 Narrative: GENERAL: NAD, A&Ox3 HEAD: Normocephalic. NECK: Supple, trachea midline. No lymphadenopathy. EYES: No scleral icterus. No injection or drainage. CARDIOVASCULAR: Regular rate and rhythm without murmurs, gallops, or rubs. RESPIRATORY: Breath sounds equal bilaterally. No accessory muscle use. GASTROINTESTINAL: Abdomen soft, non-tender, nondistended. MUSCULOSKELETAL: No cyanosis, or edema. Orthopedic halo is in place. SKIN: Warm and dry. NEURO: No focal neurological deficits. Results - Labs CBC & Chem 7: 12/30/17 06:38 12/30/17 06:38 Laboratory Results - last 24 hr 12/30/17 06:38 Creatine Kinase 53.0 - Procedures Status post T1 corpectomy, evacuation of spinal epidural abscess, C7-T1 interbody arthrodesis using Titanium mesh cage filled with bone graft C7-T1 instrumental fixation using Simplicity plate and screws with placement of halo brace on 11/12/2017. Assessment and Plan - Assessment (1) Cervical discitis Code(s): M46.42 - Discitis, unspecified, cervical region Status: Acute (2) Epidural abscess Code(s): G06.2 - Extradural and subdural abscess, unspecified Status: Acute - Plan 56-year-old male admitted secondary to C7/T1 cervical discitis and osteomyelitis status post titanium mesh cage placement halo brace placed on 11/12 Epidural abscess C7-T1 cervical discitis/osteomyelitis History of C3-6 cervical fusion Doing well status post titanium mesh cage with bone graft Continue daptomycin and rifampin until 01/11/2018 Continue PT and OT Possible bibasilar pneumonia ESBL UTI Continue ertapenem until January 02, 2018 Hypertension Continue baseline treatment Follow blood pressures Adjust treatments as needed Hyperlipidemia Continue present treatment Follow as an outpatient History of tricuspid valve endocarditis History of chest pain Currently symptom-free Follow clinically Adjustment disorder with anxiety Chronic cognitive deficit, developmental delay Supportive of care Constipation Continue docusate Continue MiraLAX as needed Superficial thrombosis Conservative therapy Continue heparin Insomnia Continue Ambien DVT prophylaxis Heparin Discharge Planning[facility] [place] when antibiotic is completed on 01/11/2018.
[2018-01-02] MEDS: DAPTOmycin Inj 1,000 MG in Sodium Chlor 0.9% Inj 100 ML IV.SIG SCH (15:22)
[2018-01-02] MEDS: Escitalopram 10 MG Tablet PO SCH (22:33)
[2018-01-03] MEDS: Heparin - SQ 10,000 UNITS/ML Vial SQ SCH ×3 (05:37→22:27)
[2018-01-03] MEDS: Metoprolol Tartrate 50 MG Tablet PO SCH ×2 (10:01→22:29)
[2018-01-03] MEDS: Docusate Sodium 100 MG Capsule PO SCH ×2 (10:01→22:29)
[2018-01-03] MEDS: amLODIPine 5 MG Tablet PO SCH (10:01)
--- NOTE | 2018-01-03 10:45 | P.PNIM ---
Subjective Interval history: No distress today. Patient is resting in bed. No new complaints. Physical Exam Vital signs: Vital Signs 01/02/18 13:34 01/02/18 20:00 01/03/18 00:00 Temperature 98.0 F 97.8 F 97.7 F Pulse Rate 69 75 82 Respiratory Rate 18 18 18 Blood Pressure 104/65 120/64 126/82 Pulse Oximetry 98 100 98 01/03/18 04:00 01/03/18 08:00 Temperature 97.6 F 97.7 F Pulse Rate 81 67 Respiratory Rate 18 16 Blood Pressure 113/70 126/70 Pulse Oximetry 99 96 Intake & Output 01/02/18 01/03/18 01/03/18 18:59 06:59 18:59 Weight 87.2 kg Other: # Incontinent Voids 1 Date of Last Bowel Movement 01/02/18 01/02/18 # Bowel Movements 2 2 Narrative: GENERAL: NAD, A&Ox3 HEAD: Normocephalic. NECK: Supple, trachea midline. No lymphadenopathy. EYES: No scleral icterus. No injection or drainage. CARDIOVASCULAR: Regular rate and rhythm without murmurs, gallops, or rubs. RESPIRATORY: Breath sounds equal bilaterally. No accessory muscle use. GASTROINTESTINAL: Abdomen soft, non-tender, nondistended. MUSCULOSKELETAL: No cyanosis, or edema. Orthopedic halo is in place. SKIN: Warm and dry. NEURO: No focal neurological deficits. Results - Labs CBC & Chem 7: 12/30/17 06:38 12/30/17 06:38 Laboratory Results - last 24 hr 12/30/17 06:38 CK-MM (CK-3) % 100 CK-MB (CK-2) % 0 CK-BB (CK-1) % - Procedures Status post T1 corpectomy, evacuation of spinal epidural abscess, C7-T1 interbody arthrodesis using Titanium mesh cage filled with bone graft C7-T1 instrumental fixation using Simplicity plate and screws with placement of halo brace on 11/12/2017. Assessment and Plan - Assessment (1) Cervical discitis Code(s): M46.42 - Discitis, unspecified, cervical region Status: Acute (2) Epidural abscess Code(s): G06.2 - Extradural and subdural abscess, unspecified Status: Acute - Plan 56-year-old male admitted secondary to C7/T1 cervical discitis and osteomyelitis status post titanium mesh cage placement halo brace placed on 11/12 No significant changes compared to previous day. Patient has no complaints. Continue supportive care. Antibiotic treatments to be completed on 01/11/2018. Plan for discharge after antibiotic treatment is completed. Epidural abscess C7-T1 cervical discitis/osteomyelitis History of C3-6 cervical fusion Doing well status post titanium mesh cage with bone graft Continue daptomycin and rifampin until 01/11/2018 Continue PT and OT Possible bibasilar pneumonia ESBL UTI Continue ertapenem until January 02, 2018 Hypertension Continue baseline treatment Follow blood pressures Adjust treatments as needed Hyperlipidemia Continue present treatment Follow as an outpatient History of tricuspid valve endocarditis History of chest pain Currently symptom-free Follow clinically Adjustment disorder with anxiety Chronic cognitive deficit, developmental delay Supportive of care Constipation Continue docusate Continue MiraLAX as needed Superficial thrombosis Conservative therapy Continue heparin Insomnia Continue Ambien DVT prophylaxis Heparin Discharge Planning: Plan to DC to [facility] [place] when antibiotic is completed on 01/11/2018.
[2018-01-03 10:51] LABS: Alanine Aminotransferase 41 U/L (12-78); Albumin 2.8 g/dL (3.4-5.0); Anion Gap 9 meq/L (5-15); Aspartate Aminotransferase 23 U/L (15-37); Blood Urea Nitrogen 15 mg/dL (7-18); Calcium 9.4 mg/dL (8.5-10.1); Carbon Dioxide 26.2 meq/L (21.0-32.0); Chloride 104 meq/L (98-107); Glomerular Filtration Rate Greater Than 89 mL/min (>89); Glucose,Random 87 mg/dL (74-106)
[2018-01-03 10:54] LABS: Alkaline Phosphatase 79 U/L (45-117); Total Protein 8.6 g/dL (6.4-8.2)
[2018-01-03 10:55] LABS: Sodium 139 meq/L (136-145)
[2018-01-03 13:03] LABS: Baso # (Auto) 0.1 th/mm3 (0.0-0.2); Baso % (Auto) 1.1 % (0.0-2.0); Eos # (Auto) 0.8 th/mm3 (0.0-0.4); Eos % (Auto) 12.3 % (0.0-4.0); Hemoglobin 12.7 gm/dL (13.0-17.0); Lymph # (Auto) 2.3 th/mm3 (1.0-4.8); Lymph % (Auto) 36.1 % (9.0-44.0); Mean Corpuscular HGB Conc 31.7 % (32.0-36.0); Mean Corpuscular Hemoglobin 24.4 pg (27.0-34.0); Mean Platelet Volume 8.2 fL (7.0-11.0); Mono # (Auto) 0.6 th/mm3 (0.0-0.9); Mono % (Auto) 9.3 % (0.0-8.0); Neut # (Auto) 2.7 th/mm3 (1.8-7.7); Neut % (Auto) 41.2 % (16.0-70.0); Platelet Count 294 th/mm3 (150-450); Red Cell Distribution Width 22.1 % (11.6-17.2); White Blood Count 6.4 th/mm3 (4.0-11.0)
[2018-01-03] MEDS: DAPTOmycin Inj 1,000 MG in Sodium Chlor 0.9% Inj 100 ML IV.SIG SCH (16:32)
[2018-01-03] MEDS: Escitalopram 10 MG Tablet PO SCH (22:29)
[2018-01-04] MEDS: Heparin - SQ 10,000 UNITS/ML Vial SQ SCH ×3 (05:23→22:48)
--- NOTE | 2018-01-04 10:49 | P.PNIM ---
Subjective Interval history: Patient is resting comfortably. Pain controlled. No new complaints. Physical Exam Vital signs: Vital Signs 01/03/18 12:00 01/03/18 16:00 01/03/18 20:00 Temperature 98 F 98.4 F 97.8 F Pulse Rate 95 H 90 73 Respiratory Rate 18 17 18 Blood Pressure 108/69 116/72 110/53 L Pulse Oximetry 100 100 100 01/04/18 00:00 01/04/18 04:00 01/04/18 08:00 Temperature 97.9 F 98.1 F 97.6 F Pulse Rate 71 77 73 Respiratory Rate 18 18 16 Blood Pressure 127/60 116/66 167/67 H Pulse Oximetry 96 97 97 Intake & Output 01/03/18 01/04/18 01/04/18 18:59 06:59 18:59 Weight 86.4 kg Other: # Voids 1 Date of Last Bowel Movement 01/03/18 # Incontinent Bowel Movements 1 Narrative: GENERAL: NAD, A&Ox3 HEAD: Normocephalic. NECK: Supple, trachea midline. No lymphadenopathy. EYES: No scleral icterus. No injection or drainage. CARDIOVASCULAR: Regular rate and rhythm without murmurs, gallops, or rubs. RESPIRATORY: Breath sounds equal bilaterally. No accessory muscle use. GASTROINTESTINAL: Abdomen soft, non-tender, nondistended. MUSCULOSKELETAL: No cyanosis, or edema. Orthopedic halo is in place. SKIN: Warm and dry. NEURO: No focal neurological deficits. Results - Labs CBC & Chem 7: 01/03/18 12:20 01/03/18 10:14 Laboratory Results - last 24 hr 01/03/18 01/03/18 10:14 12:20 WBC 6.4 RBC 5.20 Hgb 12.7 L Hct 40.0 MCV 77.0 L MCH 24.4 L MCHC 31.7 L RDW 22.1 H Plt Count 294 MPV 8.2 Neut % (Auto) 41.2 Lymph % (Auto) 36.1 [place] % (Auto) 9.3 H Eos % (Auto) 12.3 H Baso % (Auto) 1.1 Neut # (Auto) 2.7 Lymph # (Auto) 2.3 [place] # (Auto) 0.6 Eos # (Auto) 0.8 H Baso # (Auto) 0.1 WBC Differential . Differential Comment Auto diff final Sodium 139 Potassium 4.0 Chloride 104 Carbon Dioxide 26.2 Anion Gap 9 BUN 15 Creatinine 0.94 Estimated GFR Greater than 89 Random Glucose 87 Calcium 9.4 Total Bilirubin 0.2 AST 23 ALT 41 Alkaline Phosphatase 79 Total Protein 8.6 H Albumin 2.8 L - Procedures Status post T1 corpectomy, evacuation of spinal epidural abscess, C7-T1 interbody arthrodesis using Titanium mesh cage filled with bone graft C7-T1 instrumental fixation using Simplicity plate and screws with placement of halo brace on 11/12/2017. Assessment and Plan - Assessment (1) Cervical discitis Code(s): M46.42 - Discitis, unspecified, cervical region Status: Acute (2) Epidural abscess Code(s): G06.2 - Extradural and subdural abscess, unspecified Status: Acute - Plan 56-year-old male admitted secondary to C7/T1 cervical discitis and osteomyelitis status post titanium mesh cage placement halo brace placed on 11/12 Unchanged compared to previous day. Halo is in place. Patient resting comfortably.. Patient has no complaints. Continue supportive care. Antibiotic treatments to be completed on 01/11/2018. Plan for discharge after antibiotic treatment is completed. Epidural abscess C7-T1 cervical discitis/osteomyelitis History of C3-6 cervical fusion Doing well status post titanium mesh cage with bone graft Continue daptomycin and rifampin until 01/11/2018 Continue PT and OT Possible bibasilar pneumonia ESBL UTI Continue ertapenem until January 02, 2018 Hypertension Continue baseline treatment Follow blood pressures Adjust treatments as needed Hyperlipidemia Continue present treatment Follow as an outpatient History of tricuspid valve endocarditis History of chest pain Currently symptom-free Follow clinically Adjustment disorder with anxiety Chronic cognitive deficit, developmental delay Supportive of care Constipation Continue docusate Continue MiraLAX as needed Superficial thrombosis Conservative therapy Continue heparin Insomnia Continue Ambien DVT prophylaxis Heparin Discharge Planning: Plan to DC to [facility] when antibiotic is completed on 01/11/2018.
[2018-01-04] MEDS: amLODIPine 5 MG Tablet PO SCH (11:38)
[2018-01-04] MEDS: Metoprolol Tartrate 50 MG Tablet PO SCH ×2 (11:39→22:47)
[2018-01-04] MEDS: Docusate Sodium 100 MG Capsule PO SCH ×2 (11:40→22:47)
[2018-01-04] MEDS: DAPTOmycin Inj 1,000 MG in Sodium Chlor 0.9% Inj 100 ML IV.SIG SCH (14:43)
[2018-01-04] MEDS: Escitalopram 10 MG Tablet PO SCH (22:47)
[2018-01-05] MEDS: Heparin - SQ 10,000 UNITS/ML Vial SQ SCH ×3 (06:12→23:26)
[2018-01-05] MEDS: Metoprolol Tartrate 50 MG Tablet PO SCH ×2 (09:36→23:25)
[2018-01-05] MEDS: amLODIPine 5 MG Tablet PO SCH (09:36)
[2018-01-05] MEDS: Docusate Sodium 100 MG Capsule PO SCH ×2 (09:38→23:26)
--- NOTE | 2018-01-05 11:32 | P.PNIM ---
Subjective Interval history: No acute changes seen in this patient today. He is resting comfortably. He has no complaints. Physical Exam Vital signs: Vital Signs 01/04/18 12:00 01/04/18 16:00 01/04/18 20:00 Temperature 98.1 F 98.4 F 98.2 F Pulse Rate 76 77 86 Respiratory Rate 17 18 18 Blood Pressure 144/62 H 119/71 127/61 Pulse Oximetry 97 97 100 01/05/18 00:00 01/05/18 04:00 01/05/18 09:13 Temperature 97.6 F 98.2 F 97.5 F L Pulse Rate 82 88 83 Respiratory Rate 20 20 18 Blood Pressure 139/74 136/69 127/59 L Pulse Oximetry 97 98 93 L Intake & Output 01/04/18 01/05/18 01/05/18 18:59 06:59 18:59 Intake Total 700 / 700 1300 / 1300 Balance 700 / 700 1300 / 1300 Weight 85.1 kg Intake: IV 100 / 100 Cubicin Inj 1,000 MG In NS Inj 100 / 100 100 ML @ 200 mls/hr IV.SIG Q24H PAUL Rx#:[id number] Oral 600 / 600 1200 / 1200 Other 100 / 100 Other: Other Intake Source Saline Solution # Voids 2 # Incontinent Voids 8 4 Date of Last Bowel Movement 01/04/18 01/05/18 01/05/18 # Bowel Movements 4 1 Narrative: GENERAL: NAD, A&Ox3 HEAD: Normocephalic. NECK: Supple, trachea midline. No lymphadenopathy. EYES: No scleral icterus. No injection or drainage. CARDIOVASCULAR: Regular rate and rhythm without murmurs, gallops, or rubs. RESPIRATORY: Breath sounds equal bilaterally. No accessory muscle use. GASTROINTESTINAL: Abdomen soft, non-tender, nondistended. MUSCULOSKELETAL: No cyanosis, or edema. Orthopedic halo is in place. SKIN: Warm and dry. NEURO: No focal neurological deficits. Results - Labs CBC & Chem 7: 01/03/18 12:20 01/03/18 10:14 - Procedures Status post T1 corpectomy, evacuation of spinal epidural abscess, C7-T1 interbody arthrodesis using Titanium mesh cage filled with bone graft C7-T1 instrumental fixation using Simplicity plate and screws with placement of halo brace on 11/12/2017. Assessment and Plan - Assessment (1) Cervical discitis Code(s): M46.42 - Discitis, unspecified, cervical region Status: Acute (2) Epidural abscess Code(s): G06.2 - Extradural and subdural abscess, unspecified Status: Acute - Plan 56-year-old male admitted secondary to C7/T1 cervical discitis and osteomyelitis status post titanium mesh cage placement halo brace placed on 11/12 No acute changes of concern on this patient. His halo remains in place. Patient resting comfortably. Patient has no complaints. Continue supportive care. Antibiotic treatments to be completed on 01/11/2018. Plan for discharge after antibiotic treatment is completed. Epidural abscess C7-T1 cervical discitis/osteomyelitis History of C3-6 cervical fusion Doing well status post titanium mesh cage with bone graft Continue daptomycin and rifampin until 01/11/2018 Continue PT and OT Possible bibasilar pneumonia ESBL UTI Continue ertapenem until January 02, 2018 Hypertension Continue baseline treatment Follow blood pressures Adjust treatments as needed Hyperlipidemia Continue present treatment Follow as an outpatient History of tricuspid valve endocarditis History of chest pain Currently symptom-free Follow clinically Adjustment disorder with anxiety Chronic cognitive deficit, developmental delay Supportive of care Constipation Continue docusate Continue MiraLAX as needed Superficial thrombosis Conservative therapy Continue heparin Insomnia Continue Ambien DVT prophylaxis Heparin Discharge Planning: Plan to DC to [facility] when antibiotic is completed on 01/11/2018.
[2018-01-05] MEDS: DAPTOmycin Inj 1,000 MG in Sodium Chlor 0.9% Inj 100 ML IV.SIG SCH (13:26)
[2018-01-05] MEDS: Escitalopram 10 MG Tablet PO SCH (23:26)
[2018-01-06] MEDS: Heparin - SQ 10,000 UNITS/ML Vial SQ SCH ×3 (05:29→21:57)
[2018-01-06] MEDS: Metoprolol Tartrate 50 MG Tablet PO SCH ×2 (09:42→21:53)
[2018-01-06] MEDS: Docusate Sodium 100 MG Capsule PO SCH ×2 (09:42→21:51)
[2018-01-06] MEDS: amLODIPine 5 MG Tablet PO SCH (09:42)
--- NOTE | 2018-01-06 11:09 | P.PNIM ---
Subjective Interval history: Patient is doing well. He is resting in bed comfortably. No distress. No complaints of pain. Physical Exam Vital signs: Vital Signs 01/05/18 13:21 01/05/18 20:00 01/06/18 00:00 Temperature 98.7 F 97.7 F 97.2 F L Pulse Rate 68 76 Respiratory Rate 18 18 18 Blood Pressure 126/69 109/67 110/57 L Pulse Oximetry 95 95 99 01/06/18 04:00 01/06/18 08:00 Temperature 97.5 F L 97.5 F L Pulse Rate 71 76 Respiratory Rate 18 20 Blood Pressure 105/53 L 134/67 Pulse Oximetry 98 99 Intake & Output 01/05/18 01/06/18 01/06/18 18:59 06:59 18:59 Intake Total 100 / 100 940 / 940 Balance 100 / 100 940 / 940 Weight 85.1 kg Intake: IV 100 / 100 Cubicin Inj 1,000 MG In NS Inj 100 / 100 100 ML @ 200 mls/hr IV.SIG Q24H PAUL Rx#:[id number] Oral 720 / 720 Oral Supplement 120 / 120 Other 100 / 100 Other: Other Intake Source Saline Solution # Incontinent Voids 1 # Urine Diapers 1 2 Date of Last Bowel Movement 01/05/18 01/05/18 # Incontinent Bowel Movements 1 Narrative: GENERAL: NAD, A&Ox3 HEAD: Normocephalic. NECK: Supple, trachea midline. No lymphadenopathy. EYES: No scleral icterus. No injection or drainage. CARDIOVASCULAR: Regular rate and rhythm without murmurs, gallops, or rubs. RESPIRATORY: Breath sounds equal bilaterally. No accessory muscle use. GASTROINTESTINAL: Abdomen soft, non-tender, nondistended. MUSCULOSKELETAL: No cyanosis, or edema. Orthopedic halo is in place. SKIN: Warm and dry. NEURO: No focal neurological deficits. Results - Labs CBC & Chem 7: 01/03/18 12:20 01/03/18 10:14 - Procedures Status post T1 corpectomy, evacuation of spinal epidural abscess, C7-T1 interbody arthrodesis using Titanium mesh cage filled with bone graft C7-T1 instrumental fixation using Simplicity plate and screws with placement of halo brace on 11/12/2017. Assessment and Plan - Assessment (1) Cervical discitis Code(s): M46.42 - Discitis, unspecified, cervical region Status: Acute (2) Epidural abscess Code(s): G06.2 - Extradural and subdural abscess, unspecified Status: Acute - Plan 56-year-old male admitted secondary to C7/T1 cervical discitis and osteomyelitis status post titanium mesh cage placement halo brace placed on 11/12 Stable compared to yesterday. No complaints. His halo remains in place. Patient resting comfortably. Patient has no complaints. Continue supportive care. Antibiotic treatments to be completed on 01/11/2018. Plan for discharge after antibiotic treatment is completed. Epidural abscess C7-T1 cervical discitis/osteomyelitis History of C3-6 cervical fusion Doing well status post titanium mesh cage with bone graft Continue daptomycin and rifampin until 01/11/2018 Continue PT and OT Possible bibasilar pneumonia ESBL UTI Continue ertapenem until January 02, 2018 Hypertension Continue baseline treatment Follow blood pressures Adjust treatments as needed Hyperlipidemia Continue present treatment Follow as an outpatient History of tricuspid valve endocarditis History of chest pain Currently symptom-free Follow clinically Adjustment disorder with anxiety Chronic cognitive deficit, developmental delay Supportive of care Constipation Continue docusate Continue MiraLAX as needed Superficial thrombosis Conservative therapy Continue heparin Insomnia Continue Ambien DVT prophylaxis Heparin Discharge Planning: Plan to DC to [facility] [place] when antibiotic is completed on 01/11/2018.
[2018-01-06] MEDS: DAPTOmycin Inj 1,000 MG in Sodium Chlor 0.9% Inj 100 ML IV.SIG SCH (13:26)
[2018-01-06] MEDS: Escitalopram 10 MG Tablet PO SCH (21:52)
[2018-01-07] MEDS: Heparin - SQ 10,000 UNITS/ML Vial SQ SCH ×3 (05:25→22:17)
[2018-01-07] MEDS: amLODIPine 5 MG Tablet PO SCH (08:26)
[2018-01-07] MEDS: Docusate Sodium 100 MG Capsule PO SCH ×2 (08:27→22:17)
[2018-01-07] MEDS: Metoprolol Tartrate 50 MG Tablet PO SCH ×2 (08:27→22:17)
--- NOTE | 2018-01-07 12:26 | P.PNIM ---
Subjective Interval history: Patient comfortable today. No complaints of pain. Resting comfortably watching TV. Physical Exam Vital signs: Vital Signs 01/06/18 16:00 01/06/18 20:00 01/07/18 00:00 Temperature 99.3 F 98 F 98.4 F Pulse Rate 77 75 77 Respiratory Rate 20 20 18 Blood Pressure 112/61 116/77 121/63 Pulse Oximetry 97 99 98 01/07/18 04:00 01/07/18 08:20 Temperature 97.7 F 99.0 F Pulse Rate 74 71 Respiratory Rate 20 16 Blood Pressure 136/63 114/59 L Pulse Oximetry 98 98 Intake & Output 01/06/18 01/07/18 01/07/18 18:59 06:59 18:59 Intake Total 1040 / 1040 Balance 1040 / 1040 Weight 84 kg Intake: IV 100 / 100 Cubicin Inj 1,000 MG In NS Inj 100 / 100 100 ML @ 200 mls/hr IV.SIG Q24H PAUL Rx#:[id number] Oral 720 / 720 Oral Supplement 120 / 120 Other 100 / 100 Other: Other Intake Source Saline Solution # Incontinent Voids 3 3 # Urine Diapers 2 Date of Last Bowel Movement 01/05/18 01/06/18 # Incontinent Bowel Movements 1 Narrative: GENERAL: NAD, A&Ox3 HEAD: Normocephalic. NECK: Supple, trachea midline. No lymphadenopathy. EYES: No scleral icterus. No injection or drainage. CARDIOVASCULAR: Regular rate and rhythm without murmurs, gallops, or rubs. RESPIRATORY: Breath sounds equal bilaterally. No accessory muscle use. GASTROINTESTINAL: Abdomen soft, non-tender, nondistended. MUSCULOSKELETAL: No cyanosis, or edema. Orthopedic halo is in place. SKIN: Warm and dry. NEURO: No focal neurological deficits. Results - Labs CBC & Chem 7: 01/03/18 12:20 01/03/18 10:14 Laboratory Results - last 24 hr 01/06/18 21:23 Total Creatine Kinase 31 L - Procedures Status post T1 corpectomy, evacuation of spinal epidural abscess, C7-T1 interbody arthrodesis using Titanium mesh cage filled with bone graft C7-T1 instrumental fixation using Simplicity plate and screws with placement of halo brace on 11/12/2017. Assessment and Plan - Assessment (1) Cervical discitis Code(s): M46.42 - Discitis, unspecified, cervical region Status: Acute (2) Epidural abscess Code(s): G06.2 - Extradural and subdural abscess, unspecified Status: Acute - Plan 56-year-old male admitted secondary to C7/T1 cervical discitis and osteomyelitis status post titanium mesh cage placement halo brace placed on 11/12 No acute changes overnight. No complaints. His halo remains in place. Patient resting comfortably. Patient has no complaints. Continue supportive care. Antibiotic treatments to be completed on 01/11/2018. Plan for discharge after antibiotic treatment is completed. Epidural abscess C7-T1 cervical discitis/osteomyelitis History of C3-6 cervical fusion Doing well status post titanium mesh cage with bone graft Continue daptomycin and rifampin until 01/11/2018 Continue PT and OT Possible bibasilar pneumonia ESBL UTI Continue ertapenem until January 02, 2018 Hypertension Continue baseline treatment Follow blood pressures Adjust treatments as needed Hyperlipidemia Continue present treatment Follow as an outpatient History of tricuspid valve endocarditis History of chest pain Currently symptom-free Follow clinically Adjustment disorder with anxiety Chronic cognitive deficit, developmental delay Supportive of care Constipation Continue docusate Continue MiraLAX as needed Superficial thrombosis Conservative therapy Continue heparin Insomnia Continue Ambien DVT prophylaxis Heparin Discharge Planning: Plan to DC to [facility] [place] when antibiotic is completed on 01/11/2018.
--- NOTE | 2018-01-07 12:50 | FL ---
EXAM DATE: 01/07/2018 11:45 AM EDT AGE/SEX: 57 years / Male INDICATIONS: Dysphagia. Evaluate for aspiration. CLINICAL DATA: This is the patient's subsequent encounter. Patient reports that signs and symptoms h ave been present for 1 month and indicates a pain score of 0/10. MEDICAL/SURGICAL HISTORY: . Hypertension. . Fusion, cervical. Prostatectomy. COMPARISON: No prior exams available for comparison. FLUORO TIME: 1.4 IMAGE COUNT: 0 FINDINGS: A modified barium swallow was performed with speech pathology. Patient was given a variety of liquids to swallow. CONCLUSION: For a full detailed report, see report by the speech pathologist. Electronically signed by: Adam Lind MD 01/07/2018 12:48 PM EDT
[2018-01-07] MEDS: DAPTOmycin Inj 1,000 MG in Sodium Chlor 0.9% Inj 100 ML IV.SIG SCH (13:04)
[2018-01-07] MEDS: Escitalopram 10 MG Tablet PO SCH (22:17)
[2018-01-08] MEDS: Heparin - SQ 10,000 UNITS/ML Vial SQ SCH ×3 (06:47→22:01)
[2018-01-08] MEDS: Docusate Sodium 100 MG Capsule PO SCH ×2 (09:30→22:03)
[2018-01-08] MEDS: amLODIPine 5 MG Tablet PO SCH (09:30)
[2018-01-08] MEDS: Metoprolol Tartrate 50 MG Tablet PO SCH ×2 (09:31→22:03)
--- NOTE | 2018-01-08 12:47 | P.PNNS ---
Subjective Interval history: 01/08: follow up CT Cervical spine still pending Physical Exam Vital signs: Vital Signs 01/07/18 17:17 01/07/18 20:00 01/08/18 00:45 Temperature 98.3 F 97.7 F 98 F Pulse Rate 81 78 97 H Respiratory Rate 18 18 Blood Pressure 119/55 L 133/58 L 103/65 Pulse Oximetry 98 99 99 01/08/18 04:45 01/08/18 08:52 01/08/18 12:22 Temperature 97.9 F 98 F 98.2 F Pulse Rate 57 L 58 L 86 Respiratory Rate 16 16 16 Blood Pressure 108/62 157/70 H 116/58 L Pulse Oximetry 97 99 99 Intake & Output 01/07/18 01/08/18 01/08/18 18:59 06:59 18:59 Intake Total 100 / 100 Balance 100 / 100 Weight 88.6 kg Intake: IV 100 / 100 Cubicin Inj 1,000 MG In NS Inj 100 / 100 100 ML @ 200 mls/hr IV.SIG Q24H PAUL Rx#:[id number] Other: # Voids 3 4 # Incontinent Voids 1 Date of Last Bowel Movement 01/08/18 # Bowel Movements 1 Assessment and Plan - Plan Impression: 57-year-old male with cervical epidural abscess with quadriparesis status post T1 corpectomy, evacuation of spinal epidural abscess, C7-T1 interbody arthrodesis using Titanium mesh cage filled with bone graft, C7-T1 instrumental fixation using Simplicity plate and screws with placement of halo brace 2017 Plan: f/u CT Cervical spine today pending awaiting further plan regarding clearance off halo brace per Dr. Kern upon review of CT scan
--- NOTE | 2018-01-08 14:16 | P.PNIM ---
Subjective Interval history: no overnight events, no change in deficits, afebrile, denies any headache Physical Exam Vital signs: Vital Signs 01/07/18 17:17 01/07/18 20:00 01/08/18 00:45 Temperature 98.3 F 97.7 F 98 F Pulse Rate 81 78 97 H Respiratory Rate 18 18 18 Blood Pressure 119/55 L 133/58 L 103/65 Pulse Oximetry 98 99 99 01/08/18 04:45 01/08/18 08:52 01/08/18 12:22 Temperature 97.9 F 98 F 98.2 F Pulse Rate 57 L 58 L 86 Respiratory Rate 16 16 16 Blood Pressure 108/62 157/70 H 116/58 L Pulse Oximetry 97 99 99 Intake & Output 01/07/18 01/08/18 01/08/18 18:59 06:59 18:59 Intake Total 100 / 100 Balance 100 / 100 Weight 88.6 kg Intake: IV 100 / 100 Cubicin Inj 1,000 MG In NS Inj 100 / 100 100 ML @ 200 mls/hr IV.SIG Q24H PAUL Rx#:[id number] Other: # Voids 3 4 # Incontinent Voids 1 Date of Last Bowel Movement 01/08/18 # Bowel Movements 1 Narrative: GENERAL: NAD, A&Ox3 HEAD: Normocephalic. CARDIOVASCULAR: Regular rate and rhythm without murmurs, gallops, or rubs. RESPIRATORY: Breath sounds equal bilaterally. No accessory muscle use. GASTROINTESTINAL: Abdomen soft, non-tender, nondistended. MUSCULOSKELETAL: No cyanosis, or edema. Orthopedic halo is in place. NEURO: AAOx3 Results - Labs CBC & Chem 7: 01/03/18 12:20 01/03/18 10:14 - Procedures Status post T1 corpectomy, evacuation of spinal epidural abscess, C7-T1 interbody arthrodesis using Titanium mesh cage filled with bone graft C7-T1 instrumental fixation using Simplicity plate and screws with placement of halo brace on 11/12/2017. Assessment and Plan - Assessment (1) Cervical discitis Code(s): M46.42 - Discitis, unspecified, cervical region Status: Acute (2) Epidural abscess Code(s): G06.2 - Extradural and subdural abscess, unspecified Status: Acute - Plan 56-year-old male admitted secondary to C7/T1 cervical discitis and osteomyelitis status post titanium mesh cage placement halo brace placed on 11/12 Epidural abscess C7-T1 cervical discitis/osteomyelitis History of C3-6 cervical fusion -status post T1 corpectomy, evacuation of spinal epidural abscess, C7-T1 interbody arthrodesis using Titanium mesh cage filled with bone graft, C7-T1 instrumental fixation using Simplicity plate and screws with placement of halo brace on 11/12/2017. Blood cultures 2 11/11 MRSA bacteremia. Wound cultures 11/12 MRSA. - Continue current antibiotic treatment with daptomycin and rifampin per ID recommendation (8-12 weeks), completion January. - monitor lab work LFT BMP and CK every Saturday, stable. Doing well status post titanium mesh cage with bone graft Continue daptomycin and rifampin until 01/11/2018 Continue PT and OT, reconsult Neurosurgery re: halo removal, check CT spine today Possible bibasilar pneumonia ESBL UTI finished ertapenem until January 02, 2018 Hypertension Continue norvasc, metoprolol and clonidine as needed Hyperlipidemia Continue present treatment Follow as an outpatient History of tricuspid valve endocarditis History of chest pain Currently symptom-free, preserved EF on TTE Follow clinically Adjustment disorder with anxiety Chronic cognitive deficit, developmental delay, lexapro Supportive of care Constipation Continue docusate Continue MiraLAX as needed Superficial thrombosis Conservative therapy Continue heparin Insomnia Continue Ambien Modified barium swallows showed small amount of aspiration. - speech therapy following. - ADAT. DVT prophylaxis Heparin Discharge Planning: Plan to DC to [facility] [place] when antibiotic is completed on 01/11/2018.
[2018-01-08] MEDS: DAPTOmycin Inj 1,000 MG in Sodium Chlor 0.9% Inj 100 ML IV.SIG SCH (15:22)
--- NOTE | 2018-01-08 17:09 | CT ---
EXAM DATE: 01/08/2018 4:48 PM EDT AGE/SEX: 57 years / Male INDICATIONS: Post operative halo and fusion. CLINICAL DATA: This is the patient's initial encounter. Patient reports that signs and symptoms have been present for 1 day and indicates a pain score of 7/10. MEDICAL/SURGICAL HISTORY: . Cervical abscess. Fusion, cervical. Halo. RADIATION DOSE: 25.99 CTDI (mGy) COMPARISON: No prior exams available for comparison. TECHNIQUE: Contiguous axial images were obtained using helical multirow detector technique. The vol umetric data was post-processed with multiplanar reconstruction in oblique axial, sagittal, and coron al planes. Using automated exposure control and adjustment of the mA and/or kV according to patient s ize, radiation dose was kept as low as reasonably achievable to obtain optimal diagnostic quality madalyn ges. DICOM format image data is available electronically for review and comparison. FINDINGS: Vertebrae: Patient is status post a previous anterior cervical fusion from C3 through C6. Patient is status post anterior cervical fusion at C7-T1. Patient is status post posterior cervical fusion from C3 through C7. There is some disc degeneration with disc space narrowing at C6-7. There is good alig nment of the anterior cervical fusion at C7-T1. Hardware is grossly intact. Alignment: Normal. No subluxation. C2-3: There is a broad-based bulging with disc osteophyte complex. There is mild narrowing of the ne ural foramina bilaterally, right greater than left. C3-4: The bony spinal canal is normal in size. No evidence of disc bulge or herniation. The neural foramina are bilaterally patent. Postsurgical changes consistent with a posterior laminectomy. No ev idence of any significant spinal canal stenosis. C4-5: The bony spinal canal is normal in size. No evidence of disc bulge or herniation. The neural foramina are bilaterally patent. Postsurgical changes consistent with a posterior laminectomy. No ev idence of any significant spinal canal stenosis. C5-6: The bony spinal canal is normal in size. No evidence of disc bulge or herniation. The neural foramina are bilaterally patent. Postsurgical changes consistent with a posterior laminectomy. No ev idence of any significant spinal canal stenosis. C6-7: The bony spinal canal is normal in size. No evidence of disc bulge or herniation. The neural foramina are bilaterally patent. C7-T1: The bony spinal canal is normal in size. No evidence of disc bulge or herniation. The neura l foramina are bilaterally patent. Postsurgical changes consistent with anterior cervical fusion. CONCLUSION: 1. Patient is status post anterior cervical fusion from C3 through C6 with good solid bony fusion. 2. There is anterior cervical fusion at C7-T1. 3. Posterior fusion from C3 through C7. 4. Mild broad-based bulging with disc osteophyte complex at C2-3. Electronically signed by: Fahad Garrido MD 01/08/2018 5:08 PM EDT
--- NOTE | 2018-01-08 19:23 | P.PNID ---
Subjective Remarks: ID COVERAGE chart reviewed Notes reviewed Temps ok No new complaints LFT back to normal Labs today still pending Antibiotics: Cubicin/Rifampin Invanz - to finish 01/02 Past Medical History: MV endocarditis lung abscess Allergies/Adverse Reactions: Allergies No Known Allergies Allergy (Verified 12/21/17 11:30) Objective Vital Signs 01/07/18 20:00 01/08/18 00:45 01/08/18 04:45 Temperature 97.7 F 98 F 97.9 F Pulse Rate 78 97 H 57 L Respiratory Rate 18 18 16 Blood Pressure 133/58 L 103/65 108/62 Pulse Oximetry 99 99 97 01/08/18 08:52 01/08/18 12:22 Temperature 98 F 98.2 F Pulse Rate 58 L 86 Respiratory Rate 16 16 Blood Pressure 157/70 H 116/58 L Pulse Oximetry 99 99 Intake & Output 01/08/18 01/08/18 01/09/18 06:59 18:59 06:59 Intake Total 100 / 100 1040 / 1040 Output Total 2 / 2 Balance 100 / 100 1038 / 1038 Weight 88.6 kg Intake: IV 100 / 100 100 / 100 Cubicin Inj 1,000 MG In NS Inj 100 / 100 100 / 100 100 ML @ 200 mls/hr IV.SIG Q24H PAUL Rx#:[id number] Oral 720 / 720 Oral Supplement 120 / 120 Other 100 / 100 Output: Urine 2 / 2 Other: Other Intake Source Saline Solution # Voids 4 4 # Incontinent Voids 1 1 # Urine Diapers 2 Date of Last Bowel Movement 01/08/18 # Bowel Movements 1 # Incontinent Bowel Movements 1 Lab - Chemistry Results 01/06/18 21:23 Total Creatine Kinase 31 L Imaging: ITS Impressions Videofluoroscopic Swallow 01/07/18 00:00 CONCLUSION: For a full detailed report, see report by the speech pathologist. Cervical Spine CT 01/08/18 08:00 CONCLUSION: 1. Patient is status post anterior cervical fusion from C3 through C6 with good solid bony fusion. 2. There is anterior cervical fusion at C7-T1. 3. Posterior fusion from C3 through C7. 4. Mild broad-based bulging with disc osteophyte complex at C2-3. Physical Exam: Physical Exam CONSTITUTIONAL/GENERAL: Awaken easily, NAD. SKIN: Cool and dry, no generalized rash. HEAD:HALO in place EYES: Pupils equal and round and reactive. Extraocular motions intact. No scleral icterus. No injection or drainage. MOUTH: Moist oral mucosa CARDIOVASCULAR: Regular rate and rhythm without murmurs, gallops, or rubs. RESPIRATORY/CHEST: Clear to auscultation. Breath sounds equal bilaterally. No wheezes, rales, or rhonchi. GASTROINTESTINAL: Abdomen soft, non-tender, nondistended. No guarding. Bowel sounds present. GENITOURINARY: Without palpable bladder distension. MUSCULOSKELETAL: Extremities without clubbing, cyanosis, or edema. No calf tenderness. NEUROLOGICAL: awake alert. seems to have 2/5 all extremities. RLE moves better 3/5 PSYCHIATRIC: Calm and cooperative LINE: No evidence of infection Assessment and Plan - Plan IMPRESSION C7-T1 discitis with an epidural abscess, MRSA S T/S doxy, clinda Incomplete tetraplegia: some improvemment noted sp emergent decompression vanco TERRY 2 , dapto 0.25 MRI with new cord edema - that proabbly explainning nrew neuro findings MRSA sepsis H/o MRSA TV endocarditis and lung abscess 2 D echo neg Abx associated diarrhea,c.diff negative as of 11/21 - increase of diarrhea ESR persistently elevated CRP from undetectable t to 15 UTI ESBL + sp Ertapenem RECOMMENDATION Continue ERtapenem, give x 2 weeks - end date January 02 will complete Dapto + rifampin thru 01/11 tenatively (8 weeks), then will switch to po - monitor CKs weekly while on dapto - Dapto plus Rifampin for 8-12 weeks followed by shelter suppression due to pt's history of relapse and indwelling hardware repeat ESR chronic suppression I
[2018-01-08] MEDS: Escitalopram 10 MG Tablet PO SCH (22:01)
[2018-01-09] MEDS: Heparin - SQ 10,000 UNITS/ML Vial SQ SCH ×3 (06:04→21:25)
[2018-01-09] MEDS: Metoprolol Tartrate 50 MG Tablet PO SCH ×2 (09:39→21:24)
[2018-01-09] MEDS: Docusate Sodium 100 MG Capsule PO SCH ×2 (09:39→21:24)
[2018-01-09] MEDS: amLODIPine 5 MG Tablet PO SCH (09:40)
--- NOTE | 2018-01-09 10:29 | P.PNIM ---
Subjective Interval history: No overnight events, no complaints, afebrile. Physical Exam Vital signs: Vital Signs 01/08/18 12:22 01/08/18 20:00 01/08/18 22:00 Temperature 98.2 F 97.2 F L Pulse Rate 86 75 Respiratory Rate 16 16 17 Blood Pressure 116/58 L 111/61 Pulse Oximetry 99 98 01/09/18 00:00 01/09/18 04:00 01/09/18 08:00 Temperature 97.4 F L 97.6 F 97.5 F L Pulse Rate 65 65 71 Respiratory Rate 18 18 16 Blood Pressure 130/60 112/68 112/77 Pulse Oximetry 99 99 98 Intake & Output 01/08/18 01/09/18 01/09/18 18:59 06:59 18:59 Intake Total 1040 / 1040 Output Total 2 / 2 Balance 1038 / 1038 Intake: IV 100 / 100 Cubicin Inj 1,000 MG In NS Inj 100 / 100 100 ML @ 200 mls/hr IV.SIG Q24H PAUL Rx#:[id number] Oral 720 / 720 Oral Supplement 120 / 120 Other 100 / 100 Output: Urine 2 / 2 Other: Other Intake Source Saline Solution # Voids 4 1 # Incontinent Voids 1 1 # Urine Diapers 2 Date of Last Bowel Movement 01/08/18 01/08/18 # Bowel Movements 1 1 # Incontinent Bowel Movements 1 Narrative: GENERAL: NAD, A&Ox3 HEAD: Normocephalic. CARDIOVASCULAR: Regular rate and rhythm without murmurs, gallops, or rubs. RESPIRATORY: Breath sounds equal bilaterally. No accessory muscle use. GASTROINTESTINAL: Abdomen soft, non-tender, nondistended. MUSCULOSKELETAL: No cyanosis, or edema. Orthopedic halo is in place. NEURO: AAOx3 Results - Labs CBC & Chem 7: 01/03/18 12:20 01/03/18 10:14 Laboratory Results - last 24 hr 01/09/18 01/09/18 05:59 05:59 ESR 67 H Total Creatine Kinase 108 - Imaging Impressions Cervical Spine CT 01/08/18 08:00 CONCLUSION: 1. Patient is status post anterior cervical fusion from C3 through C6 with good solid bony fusion. 2. There is anterior cervical fusion at C7-T1. 3. Posterior fusion from C3 through C7. 4. Mild broad-based bulging with disc osteophyte complex at C2-3. - Procedures Status post T1 corpectomy, evacuation of spinal epidural abscess, C7-T1 interbody arthrodesis using Titanium mesh cage filled with bone graft C7-T1 instrumental fixation using Simplicity plate and screws with placement of halo brace on 11/12/2017. Assessment and Plan - Assessment (1) Cervical discitis Code(s): M46.42 - Discitis, unspecified, cervical region Status: Acute (2) Epidural abscess Code(s): G06.2 - Extradural and subdural abscess, unspecified Status: Acute - Plan 56-year-old male admitted secondary to C7/T1 cervical discitis and osteomyelitis status post titanium mesh cage placement halo brace placed on 11/12 Epidural abscess C7-T1 cervical discitis/osteomyelitis History of C3-6 cervical fusion -status post T1 corpectomy, evacuation of spinal epidural abscess, C7-T1 interbody arthrodesis using Titanium mesh cage filled with bone graft, C7-T1 instrumental fixation using Simplicity plate and screws with placement of halo brace on 11/12/2017. Blood cultures 2 11/11 MRSA bacteremia. Wound cultures 11/12 MRSA. - Continue current antibiotic treatment with daptomycin and rifampin per ID recommendation (8-12 weeks), completion January. - monitor lab work LFT BMP and CK every Saturday, stable. Doing well status post titanium mesh cage with bone graft. Ertapenem finished . Continue daptomycin and rifampin until 01/11/2018 then switch to PO followed by superintendent container terminal suppression due to pt's Hx of relapse and indwelling hardware, f/u repeat ESR. Continue PT and OT, CT spine done. Awaiting neurosurgery input regarding halo. Possible bibasilar pneumonia ESBL UTI finished ertapenem until January 02, 2018 Hypertension Continue norvasc, metoprolol and clonidine as needed Hyperlipidemia Continue present treatment Follow as an outpatient History of tricuspid valve endocarditis History of chest pain Currently symptom-free, preserved EF on TTE Follow clinically Adjustment disorder with anxiety Chronic cognitive deficit, developmental delay, lexapro Supportive of care Constipation Continue docusate Continue MiraLAX as needed Superficial thrombosis Conservative therapy Continue heparin Insomnia Continue Ambien Modified barium swallows showed small amount of aspiration. - speech therapy following. - ADAT. DVT prophylaxis Heparin Discharge Planning: Plan to DC to [facility] [place] when antibiotic is completed on 01/11/2018.
[2018-01-09] MEDS: DAPTOmycin Inj 1,000 MG in Sodium Chlor 0.9% Inj 100 ML IV.SIG SCH (13:49)
--- NOTE | 2018-01-09 14:19 | P.PNNS ---
Subjective Interval history: 01/09: f/u CT Cervical spine completed Physical Exam Vital signs: Vital Signs 01/08/18 20:00 01/08/18 22:00 01/09/18 00:00 Temperature 97.2 F L 97.4 F L Pulse Rate 75 65 Respiratory Rate 16 17 18 Blood Pressure 111/61 130/60 Pulse Oximetry 98 99 01/09/18 04:00 01/09/18 08:00 01/09/18 13:48 Temperature 97.6 F 97.5 F L 97.3 F L Pulse Rate 65 71 70 Respiratory Rate 18 16 17 Blood Pressure 112/68 112/77 90/52 L Pulse Oximetry 99 98 99 Intake & Output 01/08/18 01/09/18 01/09/18 18:59 06:59 18:59 Intake Total 1040 / 1040 Output Total 2 / 2 Balance 1038 / 1038 Intake: IV 100 / 100 Cubicin Inj 1,000 MG In NS Inj 100 / 100 100 ML @ 200 mls/hr IV.SIG Q24H PAUL Rx#:[id number] Oral 720 / 720 Oral Supplement 120 / 120 Other 100 / 100 Output: Urine 2 / 2 Other: Other Intake Source Saline Solution # Voids 4 1 # Incontinent Voids 1 1 # Urine Diapers 2 Date of Last Bowel Movement 01/08/18 01/08/18 # Bowel Movements 1 1 # Incontinent Bowel Movements 1 Assessment and Plan - Plan Impression: 57-year-old male with cervical epidural abscess with quadriparesis status post T1 corpectomy, evacuation of spinal epidural abscess, C7-T1 interbody arthrodesis using Titanium mesh cage filled with bone graft, C7-T1 instrumental fixation using Simplicity plate and screws with placement of halo brace 2017 Plan: f/u CT Cervical spine 01/08/[address] Kern, cont halo brace for another 3-4 weeks, pt to follow up in office in 3-4 weeks
[2018-01-09] MEDS: Escitalopram 10 MG Tablet PO SCH (21:24)
[2018-01-10] MEDS: Docusate Sodium 100 MG Capsule PO SCH ×2 (09:42→21:51)
[2018-01-10] MEDS: Metoprolol Tartrate 50 MG Tablet PO SCH ×2 (09:42→21:46)
[2018-01-10] MEDS: amLODIPine 5 MG Tablet PO SCH (09:42)
[2018-01-10] MEDS: Heparin - SQ 10,000 UNITS/ML Vial SQ SCH ×3 (09:43→21:47)
--- NOTE | 2018-01-10 13:54 | P.PNIM ---
Subjective Interval history: No overnight events, no fever or chills, blood pressure is stable. Physical Exam Vital signs: Vital Signs 01/09/18 16:00 01/09/18 21:50 01/10/18 00:40 Temperature 97.7 F 98 F 98.8 F Pulse Rate 71 88 68 Respiratory Rate 17 20 20 Blood Pressure 100/60 123/83 120/89 Pulse Oximetry 98 96 98 01/10/18 05:00 01/10/18 08:00 Temperature 97.7 F 97.9 F Pulse Rate 78 72 Respiratory Rate 22 17 Blood Pressure 120/75 119/66 Pulse Oximetry 97 97 Intake & Output 01/09/18 01/10/18 01/10/18 18:59 06:59 18:59 Intake Total 175 / 175 1400 / 1400 Output Total 1100 / 1100 Balance -925 / -925 1400 / 1400 Weight 89.1 kg 89.5 kg Intake: IV 100 / 100 Cubicin Inj 1,000 MG In NS Inj 100 / 100 100 ML @ 200 mls/hr IV.SIG Q24H [facility]UL Rx#:[id number] Oral 75 / 75 1400 / 1400 Output: Urine 1100 / 1100 Other: # Voids 2 6 # Incontinent Voids 2 Date of Last Bowel Movement 01/08/18 # Bowel Movements 1 2 1 # Incontinent Bowel Movements 1 Narrative: GENERAL: NAD, A&Ox3 HEAD: Normocephalic. CARDIOVASCULAR: Regular rate and rhythm without murmurs, gallops, or rubs. RESPIRATORY: Breath sounds equal bilaterally. No accessory muscle use. GASTROINTESTINAL: Abdomen soft, non-tender, nondistended. MUSCULOSKELETAL: No cyanosis, or edema. Orthopedic halo is in place. NEURO: AAOx3 Results - Labs CBC & Chem 7: 01/03/18 12:20 01/03/18 10:14 - Procedures Status post T1 corpectomy, evacuation of spinal epidural abscess, C7-T1 interbody arthrodesis using Titanium mesh cage filled with bone graft C7-T1 instrumental fixation using Simplicity plate and screws with placement of halo brace on 11/12/2017. Assessment and Plan - Assessment (1) Cervical discitis Code(s): M46.42 - Discitis, unspecified, cervical region Status: Acute (2) Epidural abscess Code(s): G06.2 - Extradural and subdural abscess, unspecified Status: Acute - Plan 56-year-old male admitted secondary to C7/T1 cervical discitis and osteomyelitis status post titanium mesh cage placement halo brace placed on 11/12 Epidural abscess C7-T1 cervical discitis/osteomyelitis History of C3-6 cervical fusion -status post T1 corpectomy, evacuation of spinal epidural abscess, C7-T1 interbody arthrodesis using Titanium mesh cage filled with bone graft, C7-T1 instrumental fixation using Simplicity plate and screws with placement of halo brace on 11/12/2017. Blood cultures 2 11/11 MRSA bacteremia. Wound cultures 11/12 MRSA. - Continue current antibiotic treatment with daptomycin and rifampin per ID recommendation (8-12 weeks), completion January. - monitor lab work LFT BMP and CK every Saturday, stable. Doing well status post titanium mesh cage with bone graft. Ertapenem finished . Continue daptomycin and rifampin until 01/11/2018 then switch to PO followed by alf suppression due to pt's Hx of relapse and indwelling hardware Continue PT and OT, CT spine done. Per neurosurgery, keep yellow for 3-4 weeks, repeat CT scan and follow-up with neurosurgery as outpatient in 4 weeks. Possible bibasilar pneumonia ESBL UTI finished ertapenem until January 02, 2018 Hypertension Continue norvasc, metoprolol and clonidine as needed Hyperlipidemia Continue present treatment Follow as an outpatient History of tricuspid valve endocarditis History of chest pain Currently symptom-free, preserved EF on TTE Follow clinically Adjustment disorder with anxiety Chronic cognitive deficit, developmental delay, lexapro Supportive of care Constipation Continue docusate Continue MiraLAX as needed Superficial thrombosis Conservative therapy Continue heparin Insomnia Continue Ambien Modified barium swallows showed small amount of aspiration. - speech therapy following. - ADAT. DVT prophylaxis Heparin Discharge Planning: Plan to [facility] to [facility] when antibiotic is completed on 01/11/2018.
[2018-01-10] MEDS: DAPTOmycin Inj 1,000 MG in Sodium Chlor 0.9% Inj 100 ML IV.SIG SCH (14:02)
[2018-01-10] MEDS: Escitalopram 10 MG Tablet PO SCH (21:46)
[2018-01-11] MEDS: Heparin - SQ 10,000 UNITS/ML Vial SQ SCH ×3 (06:19→23:02)
[2018-01-11] MEDS: amLODIPine 5 MG Tablet PO SCH (09:54)
[2018-01-11] MEDS: Docusate Sodium 100 MG Capsule PO SCH ×2 (09:55→23:01)
[2018-01-11] MEDS: Metoprolol Tartrate 50 MG Tablet PO SCH ×2 (09:55→23:01)
--- NOTE | 2018-01-11 15:15 | P.PNIM ---
Subjective Interval history: No complaints, no overnight events, afebrile. Denies any headache, no change in muscle strength. Patient was supposed to be discharged after antibiotics but now allegedly declined by [facility]. Physical Exam Vital signs: Vital Signs 01/10/18 16:00 01/10/18 21:00 01/11/18 00:40 Temperature 97.3 F L 98.1 F 98.4 F Pulse Rate 79 80 67 Respiratory Rate 16 18 17 Blood Pressure 120/60 123/80 127/72 Pulse Oximetry 99 98 97 01/11/18 05:45 01/11/18 08:00 01/11/18 12:00 Temperature 98.2 F 98.3 F 98.0 F Pulse Rate 69 69 88 Respiratory Rate 20 16 16 Blood Pressure 117/71 112/61 Pulse Oximetry 97 96 98 Intake & Output 01/10/18 01/11/18 01/11/18 18:59 06:59 18:59 Intake Total 240 / 240 950 / 950 240 / 240 Balance 240 / 240 950 / 950 240 / 240 Weight 90 kg Intake: Oral 240 / 240 950 / 950 240 / 240 Other: # Incontinent Voids 2 3 Date of Last Bowel Movement 01/10/18 01/11/18 # Bowel Movements 1 0 1 Narrative: GENERAL: NAD, A&Ox3 HEAD: Normocephalic. CARDIOVASCULAR: Regular rate and rhythm without murmurs, gallops, or rubs. RESPIRATORY: Breath sounds equal bilaterally. No accessory muscle use. GASTROINTESTINAL: Abdomen soft, non-tender, nondistended. MUSCULOSKELETAL: No cyanosis, or edema. Orthopedic halo is in place. NEURO: AAOx3, moves extremities Results - Labs CBC & Chem 7: 01/03/18 12:20 01/03/18 10:14 - Procedures Status post T1 corpectomy, evacuation of spinal epidural abscess, C7-T1 interbody arthrodesis using Titanium mesh cage filled with bone graft C7-T1 instrumental fixation using Simplicity plate and screws with placement of halo brace on 11/12/2017. Assessment and Plan - Assessment (1) Cervical discitis Code(s): M46.42 - Discitis, unspecified, cervical region Status: Acute (2) Epidural abscess Code(s): G06.2 - Extradural and subdural abscess, unspecified Status: Acute - Plan 56-year-old male admitted secondary to C7/T1 cervical discitis and osteomyelitis status post titanium mesh cage placement halo brace placed on 11/12 Epidural abscess C7-T1 cervical discitis/osteomyelitis History of C3-6 cervical fusion -status post T1 corpectomy, evacuation of spinal epidural abscess, C7-T1 interbody arthrodesis, C7-T1 instrumental fixation with placement of halo brace on 11/12/2017. Blood cultures 2 11/11 MRSA bacteremia. Wound cultures 11/12 MRSA. -Finished daptomycin 01/11/2018. Continue rifampin for jail suppression due to pt's Hx of relapse and indwelling hardware -Per neurosurgery, keep yellow for 3-4 weeks, repeat CT scan and follow-up with neurosurgery as outpatient in 4 weeks. Possible bibasilar pneumonia ESBL UTI finished ertapenem until January 02, 2018 Hypertension Continue norvasc, metoprolol and clonidine as needed History of tricuspid valve endocarditis History of chest pain Currently symptom-free, preserved EF on TTE Follow clinically Adjustment disorder with anxiety Chronic cognitive deficit, developmental delay, lexapro Superficial thrombosis Conservative therapy Continue heparin Insomnia Continue Ambien Modified barium swallows showed small amount of aspiration. - speech therapy following. - ADAT. DVT prophylaxis Heparin Discharge Planning: Plan [facility]11/2018 but not [facility] has declined.
[2018-01-11] MEDS: DAPTOmycin Inj 1,000 MG in Sodium Chlor 0.9% Inj 100 ML IV.SIG SCH (18:27)
[2018-01-11] MEDS: Escitalopram 10 MG Tablet PO SCH (23:01)
[2018-01-12] MEDS: Heparin - SQ 10,000 UNITS/ML Vial SQ SCH ×3 (07:35→23:37)
[2018-01-12] MEDS: Metoprolol Tartrate 50 MG Tablet PO SCH ×2 (10:29→23:37)
[2018-01-12] MEDS: amLODIPine 5 MG Tablet PO SCH (10:29)
[2018-01-12] MEDS: Docusate Sodium 100 MG Capsule PO SCH ×2 (10:29→23:37)
--- NOTE | 2018-01-12 11:04 | P.PNIM ---
Subjective Interval history: No overnight events. Afebrile. Declined by [facility], now looking for another rehab place. No headache. Physical Exam Vital signs: Vital Signs 01/11/18 12:00 01/11/18 16:00 01/11/18 20:00 Temperature 98.0 F 97.4 F L 98.9 F Pulse Rate 88 77 79 Respiratory Rate 16 18 18 Blood Pressure 112/61 119/59 L 126/58 L Pulse Oximetry 98 96 99 01/12/18 00:00 01/12/18 03:22 01/12/18 04:00 Temperature 99.6 F 98.4 F Pulse Rate 89 100 H Respiratory Rate 18 18 18 Blood Pressure 104/61 107/75 Pulse Oximetry 96 100 01/12/18 08:00 Temperature 97.5 F L Pulse Rate 83 Respiratory Rate 16 Blood Pressure 113/60 Pulse Oximetry 100 Intake & Output 01/11/18 01/12/18 01/12/18 18:59 06:59 18:59 Intake Total 690 / 690 340 / 340 Balance 690 / 690 340 / 340 Weight 91.2 kg Intake: IV 100 / 100 Cubicin Inj 1,000 MG In NS Inj 100 / 100 100 ML @ 200 mls/hr IV.SIG Q24H [facility] Rx#:[id number] Oral 690 / 690 240 / 240 Other: # Incontinent Voids 3 Date of Last Bowel Movement 01/11/18 01/11/18 # Bowel Movements 1 # Incontinent Bowel Movements 1 Results - Labs CBC & Chem 7: 01/03/18 12:20 01/03/18 10:14 - Procedures Status post T1 corpectomy, evacuation of spinal epidural abscess, C7-T1 interbody arthrodesis using Titanium mesh cage filled with bone graft C7-T1 instrumental fixation using Simplicity plate and screws with placement of halo brace on 11/12/2017. Assessment and Plan - Assessment (1) Cervical discitis Code(s): M46.42 - Discitis, unspecified, cervical region Status: Acute (2) Epidural abscess Code(s): G06.2 - Extradural and subdural abscess, unspecified Status: Acute - Plan 56-year-old male admitted secondary to C7/T1 cervical discitis and osteomyelitis status post titanium mesh cage placement halo brace placed on 11/12 Epidural abscess C7-T1 cervical discitis/osteomyelitis History of C3-6 cervical fusion -status post T1 corpectomy, evacuation of spinal epidural abscess, C7-T1 interbody arthrodesis, C7-T1 instrumental fixation with placement of halo brace on 11/12/2017. Blood cultures 2 11/11 MRSA bacteremia. Wound cultures 11/12 MRSA. -Finish daptomycin 01/11/2018. Continue oral antibiotic for long line teamster suppression due to pt's Hx of relapse and indwelling hardware, will discuss with Dr. Kruger. -Per neurosurgery, keep yellow for 3-4 weeks, repeat CT scan and follow-up with neurosurgery as outpatient in 4 weeks. Possible bibasilar pneumonia ESBL UTI finished ertapenem until January 02, 2018 Hypertension Continue norvasc, metoprolol and clonidine as needed History of tricuspid valve endocarditis History of chest pain Currently symptom-free, preserved EF on TTE Follow clinically Adjustment disorder with anxiety Chronic cognitive deficit, developmental delay, lexapro Superficial thrombosis Conservative therapy Continue heparin Insomnia Continue Ambien Modified barium swallows showed small amount of aspiration. - speech therapy following. - ADAT. DVT prophylaxis Heparin Discharge Planning: Plan to [facility] 01/11/2018 but not [facility] declined.
[2018-01-12] MEDS: DAPTOmycin Inj 1,000 MG in Sodium Chlor 0.9% Inj 100 ML IV.SIG SCH (15:31)
[2018-01-12] MEDS: Escitalopram 10 MG Tablet PO SCH (23:37)
[2018-01-13] MEDS: Heparin - SQ 10,000 UNITS/ML Vial SQ SCH ×3 (06:47→23:01)
[2018-01-13] MEDS: amLODIPine 5 MG Tablet PO SCH (10:13)
[2018-01-13] MEDS: Metoprolol Tartrate 50 MG Tablet PO SCH ×2 (10:14→20:34)
--- NOTE | 2018-01-13 10:14 | P.PNIM ---
Subjective Interval history: No overnight events, no fever or chills. No significant pain other than pins on his head. Physical Exam Vital signs: Vital Signs 01/12/18 12:00 01/12/18 17:00 01/12/18 20:00 Temperature 97.8 F 98 F 98.0 F Pulse Rate 78 82 80 Respiratory Rate 16 16 18 Blood Pressure 108/62 111/64 119/60 Pulse Oximetry 100 100 98 01/13/18 00:00 01/13/18 02:08 01/13/18 03:57 Temperature 97.9 F Pulse Rate 86 Respiratory Rate 18 18 18 Blood Pressure 109/60 Pulse Oximetry 97 01/13/18 04:00 01/13/18 08:00 Temperature 98.4 F 97.3 F L Pulse Rate 81 73 Respiratory Rate 18 18 Blood Pressure 110/59 L 113/58 L Pulse Oximetry 95 98 Intake & Output 01/12/18 01/13/18 01/13/18 18:59 06:59 18:59 Intake Total 350 / 350 100 / 100 Balance 350 / 350 100 / 100 Weight 91.3 kg Intake: IV 100 / 100 Cubicin Inj 1,000 MG In NS Inj 100 / 100 100 ML @ 200 mls/hr IV.SIG Q24H [facility] Rx#:[id number] Oral 350 / 350 Other: # Voids 2 Date of Last Bowel Movement 01/12/18 01/12/18 Narrative: GENERAL: NAD, A&Ox3 HEAD: Normocephalic. CARDIOVASCULAR: Regular rate and rhythm without murmurs, gallops, or rubs. RESPIRATORY: Breath sounds equal bilaterally. No accessory muscle use. GASTROINTESTINAL: Abdomen soft, non-tender, nondistended. MUSCULOSKELETAL: No cyanosis, or edema. Orthopedic halo is in place. NEURO: AAOx3, moves all 4 extremities but weak. Results - Labs CBC & Chem 7: 01/03/18 12:20 01/03/18 10:14 - Procedures Status post T1 corpectomy, evacuation of spinal epidural abscess, C7-T1 interbody arthrodesis using Titanium mesh cage filled with bone graft C7-T1 instrumental fixation using Simplicity plate and screws with placement of halo brace on 11/12/2017. Assessment and Plan - Assessment (1) Cervical discitis Code(s): M46.42 - Discitis, unspecified, cervical region Status: Acute (2) Epidural abscess Code(s): G06.2 - Extradural and subdural abscess, unspecified Status: Acute - Plan 56-year-old male admitted secondary to C7/T1 cervical discitis and osteomyelitis status post titanium mesh cage placement halo brace placed on 11/12 Epidural abscess C7-T1 cervical discitis/osteomyelitis History of C3-6 cervical fusion -status post T1 corpectomy, evacuation of spinal epidural abscess, C7-T1 interbody arthrodesis, C7-T1 instrumental fixation with placement of halo brace on 11/12/2017. Blood cultures 2 11/11 MRSA bacteremia. Wound cultures 11/12 MRSA. -Finished daptomycin 01/11/2018. Continue doxycycline for residential suppression due to pt's Hx of relapse and indwelling hardware, discussed with Dr. Kruger. -Per neurosurgery, keep halo for 3-4 weeks, repeat CT scan and follow-up with neurosurgery as outpatient in 4 weeks (Feb 06) Possible bibasilar pneumonia ESBL UTI -finished ertapenem until January 02, 2018 Hypertension Continue metoprolol, blood pressure has been soft, stop Norvasc. Clonidine as needed. History of tricuspid valve endocarditis History of chest pain Currently symptom-free, preserved EF on TTE Follow clinically Adjustment disorder with anxiety Chronic cognitive deficit, developmental delay, lexapro Superficial thrombosis Conservative therapy Continue heparin Insomnia Continue Ambien Modified barium swallows showed small amount of aspiration. - speech therapy following. - ADAT. DVT prophylaxis Heparin Discharge Planning: Plan to [facility]2018 but now [facility] has declined. Awaiting new placement, if no placement in a few days, switch to [facility]. Repeat CBC, LFTs, CK and BMP now.
[2018-01-13] MEDS: Docusate Sodium 100 MG Capsule PO SCH ×2 (10:15→20:35)
--- NOTE | 2018-01-13 10:26 | P.DS ---
Date of admission: 11/11/17 22:39 Primary care physician: Phil Polanco DO Brief History from admission: Per attending physician: 56-year-old very pleasant gentleman with some developmental delay is brought in by his sister. He has had significant myelopathy since a cervical fusion 13 years ago. He had a complicated medical admission earlier this year and was in rehab until the end of August. He left rehab being able to ambulate with a walker. However about a month ago he had a fall and since that fall has had progressive worsening of strength in both arms and both legs. He went to an outpatient visit with his rehab physician Dr. Serra today and she noted the profound deficit of strength in all 4 extremities. She noted some clonus at the ankle and sent him here to get MRIs. The MRI obtained in the emergency department shows dramatic change when compared to the prior study with MRI findings consistent with C7-T1 discitis and osteomyelitis with a small epidural abscess at C7-T1. The MRI results and the case were discussed by ED attending with neurosurgeon on-call. The patient is admitted to critical care service with the neurosurgical consultation in place. DS: Diagnosis - Discharge Diagnosis (1) Cervical discitis Status: Acute (2) Epidural abscess Status: Acute (3) Pneumonia Status: Resolved (4) UTI due to extended-spectrum beta lactamase (ESBL) producing Escherichia coli Status: Resolved DS: Summary Hospital Course: This is 56-year-old male with developmental delay admitted secondary to C7/T1 cervical discitis and osteomyelitis status post titanium mesh cage placement halo brace placed on 11/12/2017. Patient was found to have epidural abscess and C7-T1 cervical discitis/ osteomyelitis, status post evaluation of spinal epidural abscess C7-T1 interbody arthrodesis, C7-T1 instrumental fixation with placement of halo brace on 11/12/2017 after consultation with neurosurgery. Blood culture and wound culture grew MRSA. Infectious disease was consulted. Patient finished daptomycin 01/11/2018. He will continue oral antibiotic with doxycycline for fpc suppression due to pt's Hx of relapse and indwelling hardware, will discuss with Dr. Kruger.Per neurosurgery, keep halo for 3-4 weeks, repeat CT scan and follow-up with neurosurgery as outpatient in 4 weeks (Feb 06). Hospital course was complicated by UTI and bibasilar pneumonia for which he was placed on Ertapenem which he finished on January 02, 2018. His blood pressure was controlled by Norvasc and metoprolol which improved hence Norvasc was stopped. He will continue on metoprolol. He will be discharged to SNF once available. - Time Spent with Patient Total time spent providing and/or coordinating discharge services: Greater than 30 minutes Exam Vital signs: Vital Signs 01/12/18 12:00 01/12/18 17:00 01/12/18 20:00 Temperature 97.8 F 98 F 98.0 F Pulse Rate 78 82 80 Respiratory Rate 16 16 18 Blood Pressure 108/62 111/64 119/60 Pulse Oximetry 100 100 98 01/13/18 00:00 01/13/18 02:08 01/13/18 03:57 Temperature 97.9 F Pulse Rate 86 Respiratory Rate 18 18 18 Blood Pressure 109/60 Pulse Oximetry 97 01/13/18 04:00 01/13/18 08:00 Temperature 98.4 F 97.3 F L Pulse Rate 81 73 Respiratory Rate 18 18 Blood Pressure 110/59 L 113/58 L Pulse Oximetry 95 98 Intake & Output 01/12/18 01/13/18 01/13/18 18:59 06:59 18:59 Intake Total 350 / 350 100 / 100 Balance 350 / 350 100 / 100 Weight 91.3 kg Intake: IV 100 / 100 Cubicin Inj 1,000 MG In NS Inj 100 / 100 100 ML @ 200 mls/hr IV.SIG Q24H [facility] Rx#:[id number] Oral 350 / 350 Other: # Voids 2 Date of Last Bowel Movement 01/12/18 01/12/18 Results Procedures completed during hospitalization: Status post T1 corpectomy, evacuation of spinal epidural abscess, C7-T1 interbody arthrodesis using Titanium mesh cage filled with bone graft C7-T1 instrumental fixation using Simplicity plate and screws with placement of halo brace on 11/12/2017. - Impressions ITS Impressions Videofluoroscopic Swallow 01/07/18 00:00 CONCLUSION: For a full detailed report, see report by the speech pathologist. Cervical Spine CT 01/08/18 08:00 CONCLUSION: 1. Patient is status post anterior cervical fusion from C3 through C6 with good solid bony fusion. 2. There is anterior cervical fusion at C7-T1. 3. Posterior fusion from C3 through C7. 4. Mild broad-based bulging with disc osteophyte complex at C2-3. Discharge Plan - Discharge Disposition Patient Disposition: 03 Discharge to SNF - Discharge Condition Condition: Good - Discharge Order Discharge Orders: Discharge Order (Routine); Ordered 01/11/18 Ordered By: Nanci Reynoso - Discharge Details Anticipated Discharge Date: 01/13/18 Discharge Comment: d/c once placement is ready - Physicians Team Primary Care Provider: Phil Polanco Attending Provider: Nanci Reynoso Other Providers: Stacey Kruger MD ; [facility] ; [facility] ; Erasto Kern MD ; [facility] - Rxs /Orders / Referrals /Forms Prescriptions: New acetaminophen 325 mg Tablet 650 mg PO Q4H PRN (Reason: TEMP >101.5degF) RF: 0 albuterol sulfate 2.5 mg /3 mL (0.083 %) Solution For Nebulization 2.5 mg INH Q4HR NEB PRN (Reason: Wheezing) RF: 0 clonidine HCl [Catapres] 0.1 mg Tablet 0.1 mg NG/OG Q6H PRN (Reason: Sys Bp Greater Than 170 Mmhg) RF: 0 cyclobenzaprine 10 mg Tablet 10 mg PO Q8H PRN (Reason: Muscle Spasm) RF: 0 docusate sodium [DOK] 100 mg Capsule 100 mg PO BID RF: 0 doxycycline hyclate 100 mg Capsule 100 mg PO Q12HR RF: 0 escitalopram oxalate 10 mg Tablet 10 mg PO HS RF: 0 metoprolol tartrate 50 mg Tablet 50 mg PO Q12HR RF: 0 pantoprazole 40 mg Tablet,Delayed Release (Dr/Ec) 40 mg PO DAILY RF: 0 zolpidem 5 mg Tablet 5 mg PO HS PRN (Reason: Insomnia) RF: 0 Continue aspirin 81 mg Tablet,Chewable 81 mg PO DAILY atorvastatin 40 mg Tablet 40 mg PO HS nitroglycerin 0.3 mg Tablet, Sublingual 0.3 mg Sublingual DIRECTED PRN (Reason: Chest Pain) Discontinued amlodipine 2.5 mg Tablet 2.5 mg PO DAILY metoprolol tartrate [Lopressor] 50 mg Tablet 50 mg PO Q12H sennosides [Senna Lax] 8.6 mg Tablet 17.2 mg PO Q12H PRN (Reason: moderate constipation) simethicone 125 mg Tablet,Chewable 125 mg PO Q8H PRN (Reason: gas retention) Referrals: Phil Polanco DO [Primary Care Provider] - See Instructions
[2018-01-13 12:56] LABS: Hematocrit 36.7 % (39.0-51.0); Mean Corpuscular HGB Conc 32.6 % (32.0-36.0); Mean Corpuscular Hemoglobin 25.6 pg (27.0-34.0); Mean Corpuscular Volume 78.4 fL (80.0-100.0); Mean Platelet Volume 8.7 fL (7.0-11.0); Platelet Count 202 th/mm3 (150-450); Red Blood Count 4.69 mil/mm3 (4.50-5.90); Red Cell Distribution Width 23.2 % (11.6-17.2); White Blood Count 6.6 th/mm3 (4.0-11.0)
[2018-01-13 13:12] LABS: Albumin 2.7 g/dL (3.4-5.0); Anion Gap 5 meq/L (5-15); Aspartate Aminotransferase 14 U/L (15-37); Blood Urea Nitrogen 15 mg/dL (7-18); Carbon Dioxide 29.8 meq/L (21.0-32.0); Chloride 108 meq/L (98-107); Glomerular Filtration Rate Greater Than 89 mL/min (>89); Glucose,Random 113 mg/dL (74-106); Potassium 3.6 meq/L (3.5-5.1); Sodium 143 meq/L (136-145)
[2018-01-13 13:16] LABS: Alanine Aminotransferase 25 U/L (12-78); Alkaline Phosphatase 72 U/L (45-117); Total Protein 7.7 g/dL (6.4-8.2)
[2018-01-13 13:18] LABS: Creatine Kinase 79 U/L (39-308)
[2018-01-13] MEDS: Escitalopram 10 MG Tablet PO SCH (20:34)
[2018-01-14] MEDS: Heparin - SQ 10,000 UNITS/ML Vial SQ SCH (05:46)
[2018-01-14] MEDS: Metoprolol Tartrate 50 MG Tablet PO SCH (08:30)
[2018-01-14] MEDS: Docusate Sodium 100 MG Capsule PO SCH (08:30)
[2018-01-14 09:33] VITALS: BP 133/77; PULSE 77; RESP 20; TEMP 98.4; O2SAT 98
--- NOTE | 2018-03-12 19:08 | ED ---
HPI Related Data Home Medications Medication Instructions Recorded Confirmed aspirin 81 mg PO DAILY 12/21/17 12/21/17 atorvastatin 40 mg PO HS 12/21/17 12/21/17 nitroglycerin 0.3 mg SUBLINGUAL DIRECTED PRN 12/21/17 12/21/17 Previous Rx's Medication Instructions Recorded acetaminophen 650 mg PO Q4H PRN tab 01/13/18 albuterol sulfate 2.5 mg INH Q4HR NEB PRN ml 01/13/18 clonidine HCl [Catapres] 0.1 mg NG/OG Q6H PRN tab 01/13/18 cyclobenzaprine 10 mg PO Q8H PRN tab 01/13/18 docusate sodium [DOK] 100 mg PO BID cap 01/13/18 doxycycline hyclate 100 mg PO Q12HR cap 01/13/18 escitalopram oxalate 10 mg PO HS tab 01/13/18 metoprolol tartrate 50 mg PO Q12HR tab 01/13/18 pantoprazole 40 mg PO DAILY tab 01/13/18 zolpidem 5 mg PO HS PRN tab 01/13/18 Allergies Allergy/AdvReac Type Severity Reaction Status Date / Time No Known Allergies Allergy Verified 12/21/17 11:30 [facility] Social History Social History Recent Travel in [facility] within the Last 8 Weeks: No Recent Out of Country Travel within the Last 8 Weeks: No Course Initial Documented Vital Signs Temperature 97.6 F 12/22/17 04:00 Pulse Rate 76 12/22/17 04:00 Blood Pressure 134/78 12/22/17 04:00 Pulse Oximetry 98 12/22/17 04:00 Last Documented Vital Signs Temperature 98.4 F 01/14/18 08:00 Pulse Rate 77 01/14/18 08:00 Respiratory Rate 20 01/14/18 08:00 Blood Pressure 133/77 01/14/18 08:00 Pulse Oximetry 98 01/14/18 08:00 Medical Decision Making Lab Data Result diagrams: 01/13/18 12:10 01/13/18 12:10 Lab Results 11/11/17 11/11/17 11/11/17 Range/Units 18:10 18:10 18:10 WBC 9.0 (4.0-11.0) TH/MM3 RBC 3.82 L (4.50-5.90) MIL/MM3 Hgb 9.3 L (13.0-17.0) GM/DL Hct 28.8 L (39.0-51.0) % MCV 75.3 L (80.0-100.0) FL MCH 24.3 L (27.0-34.0) PG MCHC 32.3 (32.0-36.0) % RDW 19.1 H (11.6-17.2) % Plt Count 345 (150-450) TH/MM3 MPV 7.7 (7.0-11.0) FL Neut % (Auto) 59.3 (16.0-70.0) % Lymph % (Auto) 23.4 (9.0-44.0) % [place] % (Auto) 13.2 H (0.0-8.0) % Eos % (Auto) 3.1 (0.0-4.0) % Baso % (Auto) 1.0 (0.0-2.0) % Neut # (Auto) 5.3 (1.8-7.7) TH/MM3 Lymph # (Auto) 2.1 (1.0-4.8) TH/MM3 [place] # (Auto) 1.2 H (0-0.9) TH/MM3 Eos # (Auto) 0.3 (0-0.4) TH/MM3 Baso # (Auto) 0.1 (0-0.2) TH/MM3 CBC Comment DIFF FINAL WBC Differential Differential Comment ESR (0-20) mm/hr PT 11.8 H (9.8-11.6) SEC INR 1.2 RATIO APTT 27.8 (24.3-30.1) SEC Sodium 139 (136-145) MEQ/L Potassium 4.0 (3.5-5.1) MEQ/L Chloride 103 (98-107) MEQ/L Carbon Dioxide 28.0 (21.0-32.0) MEQ/L Anion Gap 8 (5-15) MEQ/L BUN 13 (7-18) MG/DL Creatinine 0.90 (0.60-1.30) MG/DL Estimated GFR 105 (>89) ML/MIN Random Glucose 85 (74-106) MG/DL Hemoglobin A1c (4.3-6.0) % Lactic Acid (0.4-2.0) mmol/L Calcium 8.9 (8.5-10.1) MG/DL Phosphorus (2.5-4.9) MG/DL Magnesium (1.5-2.5) MG/DL Total Bilirubin 0.5 (0.2-1.0) MG/DL Direct Bilirubin (0.0-0.2) MG/DL Indirect Bilirubin (0.0-0.8) MG/DL AST 19 (15-37) U/L ALT 17 (12-78) U/L Alkaline Phosphatase 82 (45-117) U/L Creatine Kinase (44-196) U/L CK-MM (CK-3) % Total Creatine Kinase (39-308) U/L CK-MB (CK-2) % CK-BB (CK-1) % Troponin I (0.02-0.05) NG/ML C-Reactive Protein (0.00-0.30) MG/DL Total Protein 8.8 H (6.4-8.2) GM/DL Albumin 2.3 L (3.4-5.0) GM/DL Free T4 (0.76-1.46) NG/DL TSH 3rd Generation (0.358-3.740) uIU/ML Urine Color (YELLW/STRAW) Urine Turbidity (CLEAR) Urine pH (5.0-8.5) Ur Specific [place] (1.002-1.035) Urine Protein (NEG-TRACE) mg/dL Urine Glucose (UA) (NEG) mg/dL Urine Ketones (NEG) mg/dL Urine Occult Blood (NEG) Urine Nitrite (NEG) Urine Bilirubin (NEG) Urine Urobilinogen (LESS THAN 2) mg/dL Ur Leukocyte Esterase (NEG) Urine RBC (0-3) /hpf Urine WBC (0-5) /hpf Urine Bacteria (NONE) /hpf Micro UA Comment Nasal Screen MRSA (PCR) (NOT DETECT) Stl C.difficile Tox PCR (NEGATIVE) St C. diff Tox Epid 027 (NEGATIVE) Vancomycin Trough (5.0-10.0) MCG/ML 11/11/17 11/12/17 11/12/17 Range/Units 22:20 04:15 04:15 WBC (4.0-11.0) TH/MM3 RBC (4.50-5.90) MIL/MM3 Hgb (13.0-17.0) GM/DL Hct (39.0-51.0) % MCV (80.0-100.0) FL MCH (27.0-34.0) PG MCHC (32.0-36.0) % RDW (11.6-17.2) % Plt Count (150-450) TH/MM3 MPV (7.0-11.0) FL Neut % (Auto) (16.0-70.0) % Lymph % (Auto) (9.0-44.0) % [place] % (Auto) (0.0-8.0) % Eos % (Auto) (0.0-4.0) % Baso % (Auto) (0.0-2.0) % Neut # (Auto) (1.8-7.7) TH/MM3 Lymph # (Auto) (1.0-4.8) TH/MM3 [place] # (Auto) (0-0.9) TH/MM3 Eos # (Auto) (0-0.4) TH/MM3 Baso # (Auto) (0-0.2) TH/MM3 CBC Comment WBC Differential Differential Comment ESR (0-20) mm/hr PT (9.8-11.6) SEC INR RATIO APTT (24.3-30.1) SEC Sodium 139 (136-145) MEQ/L Potassium 3.7 (3.5-5.1) MEQ/L Chloride 106 (98-107) MEQ/L Carbon Dioxide 26.9 (21.0-32.0) MEQ/L Anion Gap 6 (5-15) MEQ/L BUN 14 (7-18) MG/DL Creatinine 0.91 (0.60-1.30) MG/DL Estimated GFR 103 (>89) ML/MIN Random Glucose 83 (74-106) MG/DL Hemoglobin A1c (4.3-6.0) % Lactic Acid 0.7 0.7 (0.4-2.0) mmol/L Calcium 8.5 (8.5-10.1) MG/DL Phosphorus 3.2 (2.5-4.9) MG/DL Magnesium 2.1 (1.5-2.5) MG/DL Total Bilirubin 0.5 (0.2-1.0) MG/DL Direct Bilirubin (0.0-0.2) MG/DL Indirect Bilirubin (0.0-0.8) MG/DL AST 17 (15-37) U/L ALT 16 (12-78) U/L Alkaline Phosphatase 74 (45-117) U/L Creatine Kinase (44-196) U/L CK-MM (CK-3) % Total Creatine Kinase (39-308) U/L CK-MB (CK-2) % CK-BB (CK-1) % Troponin I (0.02-0.05) NG/ML C-Reactive Protein (0.00-0.30) MG/DL Total Protein 8.0 D (6.4-8.2) GM/DL Albumin 2.0 L (3.4-5.0) GM/DL Free T4 (0.76-1.46) NG/DL TSH 3rd Generation (0.358-3.740) uIU/ML Urine Color (YELLW/STRAW) Urine Turbidity (CLEAR) Urine pH (5.0-8.5) Ur Specific [place] (1.002-1.035) Urine Protein (NEG-TRACE) mg/dL Urine Glucose (UA) (NEG) mg/dL Urine Ketones (NEG) mg/dL Urine Occult Blood (NEG) Urine Nitrite (NEG) Urine Bilirubin (NEG) Urine Urobilinogen (LESS THAN 2) mg/dL Ur Leukocyte Esterase (NEG) Urine RBC (0-3) /hpf Urine WBC (0-5) /hpf Urine Bacteria (NONE) /hpf Micro UA Comment Nasal Screen MRSA (PCR) (NOT DETECT) Stl C.difficile Tox PCR (NEGATIVE) St C. diff Tox Epid 027 (NEGATIVE) Vancomycin Trough (5.0-10.0) MCG/ML 11/12/17 11/12/17 11/12/17 Range/Units 04:15 04:15 06:00 WBC 7.6 (4.0-11.0) TH/MM3 RBC 3.89 L (4.50-5.90) MIL/MM3 Hgb 9.4 L (13.0-17.0) GM/DL Hct 29.2 L (39.0-51.0) % MCV 75.1 L (80.0-100.0) FL MCH 24.1 L (27.0-34.0) PG MCHC 32.1 (32.0-36.0) % RDW 19.2 H (11.6-17.2) % Plt Count 318 (150-450) TH/MM3 MPV 8.2 (7.0-11.0) FL Neut % (Auto) 61.0 (16.0-70.0) % Lymph % (Auto) 23.6 (9.0-44.0) % [place] % (Auto) 12.4 H (0.0-8.0) % Eos % (Auto) 2.4 (0.0-4.0) % Baso % (Auto) 0.6 (0.0-2.0) % Neut # (Auto) 4.6 (1.8-7.7) TH/MM3 Lymph # (Auto) 1.8 (1.0-4.8) TH/MM3 [place] # (Auto) 0.9 (0-0.9) TH/MM3 Eos # (Auto) 0.2 (0-0.4) TH/MM3 Baso # (Auto) 0.0 (0-0.2) TH/MM3 CBC Comment DIFF FINAL WBC Differential Differential Comment ESR (0-20) mm/hr PT 12.1 H (9.8-11.6) SEC INR 1.2 RATIO APTT (24.3-30.1) SEC Sodium (136-145) MEQ/L Potassium (3.5-5.1) MEQ/L Chloride (98-107) MEQ/L Carbon Dioxide (21.0-32.0) MEQ/L Anion Gap (5-15) MEQ/L BUN (7-18) MG/DL Creatinine (0.60-1.30) MG/DL Estimated GFR (>89) ML/MIN Random Glucose (74-106) MG/DL Hemoglobin A1c (4.3-6.0) % Lactic Acid (0.4-2.0) mmol/L Calcium (8.5-10.1) MG/DL Phosphorus (2.5-4.9) MG/DL Magnesium (1.5-2.5) MG/DL Total Bilirubin (0.2-1.0) MG/DL Direct Bilirubin (0.0-0.2) MG/DL Indirect Bilirubin (0.0-0.8) MG/DL AST (15-37) U/L ALT (12-78) U/L Alkaline Phosphatase (45-117) U/L Creatine Kinase (44-196) U/L CK-MM (CK-3) % Total Creatine Kinase (39-308) U/L CK-MB (CK-2) % CK-BB (CK-1) % Troponin I (0.02-0.05) NG/ML C-Reactive Protein (0.00-0.30) MG/DL Total Protein (6.4-8.2) GM/DL Albumin (3.4-5.0) GM/DL Free T4 (0.76-1.46) NG/DL TSH 3rd Generation (0.358-3.740) uIU/ML Urine Color (YELLW/STRAW) Urine Turbidity (CLEAR) Urine pH (5.0-8.5) Ur Specific [place] (1.002-1.035) Urine Protein (NEG-TRACE) mg/dL Urine Glucose (UA) (NEG) mg/dL Urine Ketones (NEG) mg/dL Urine Occult Blood (NEG) Urine Nitrite (NEG) Urine Bilirubin (NEG) Urine Urobilinogen (LESS THAN 2) mg/dL Ur Leukocyte Esterase (NEG) Urine RBC (0-3) /hpf Urine WBC (0-5) /hpf Urine Bacteria (NONE) /hpf Micro UA Comment Nasal Screen MRSA (PCR) MRSA DETECTED (NOT DETECT) Stl C.difficile Tox PCR (NEGATIVE) St C. diff Tox Epid 027 (NEGATIVE) Vancomycin Trough (5.0-10.0) MCG/ML 11/12/17 11/12/17 11/13/17 Range/Units 16:10 16:10 20:35 WBC 7.1 (4.0-11.0) TH/MM3 RBC 3.63 L (4.50-5.90) MIL/MM3 Hgb 8.7 L (13.0-17.0) GM/DL Hct 27.4 L (39.0-51.0) % MCV 75.4 L (80.0-100.0) FL MCH 23.9 L (27.0-34.0) PG MCHC 31.6 L (32.0-36.0) % RDW 19.0 H (11.6-17.2) % Plt Count 252 (150-450) TH/MM3 MPV 8.0 (7.0-11.0) FL Neut % (Auto) (16.0-70.0) % Lymph % (Auto) (9.0-44.0) % [place] % (Auto) (0.0-8.0) % Eos % (Auto) (0.0-4.0) % Baso % (Auto) (0.0-2.0) % Neut # (Auto) (1.8-7.7) TH/MM3 Lymph # (Auto) (1.0-4.8) TH/MM3 [place] # (Auto) (0-0.9) TH/MM3 Eos # (Auto) (0-0.4) TH/MM3 Baso # (Auto) (0-0.2) TH/MM3 CBC Comment WBC Differential Differential Comment ESR (0-20) mm/hr PT (9.8-11.6) SEC INR RATIO APTT (24.3-30.1) SEC Sodium 139 (136-145) MEQ/L Potassium 3.9 (3.5-5.1) MEQ/L Chloride 104 (98-107) MEQ/L Carbon Dioxide 23.9 (21.0-32.0) MEQ/L Anion Gap 11 (5-15) MEQ/L BUN 12 (7-18) MG/DL Creatinine 0.93 1.00 (0.60-1.30) MG/DL Estimated GFR 101 93 (>89) ML/MIN Random Glucose 114 H (74-106) MG/DL Hemoglobin A1c (4.3-6.0) % Lactic Acid (0.4-2.0) mmol/L Calcium 8.4 L (8.5-10.1) MG/DL Phosphorus (2.5-4.9) MG/DL Magnesium (1.5-2.5) MG/DL Total Bilirubin (0.2-1.0) MG/DL Direct Bilirubin (0.0-0.2) MG/DL Indirect Bilirubin (0.0-0.8) MG/DL AST (15-37) U/L ALT (12-78) U/L Alkaline Phosphatase (45-117) U/L Creatine Kinase (44-196) U/L CK-MM (CK-3) % Total Creatine Kinase (39-308) U/L CK-MB (CK-2) % CK-BB (CK-1) % Troponin I (0.02-0.05) NG/ML C-Reactive Protein (0.00-0.30) MG/DL Total Protein (6.4-8.2) GM/DL Albumin (3.4-5.0) GM/DL Free T4 (0.76-1.46) NG/DL TSH 3rd Generation (0.358-3.740) uIU/ML Urine Color (YELLW/STRAW) Urine Turbidity (CLEAR) Urine pH (5.0-8.5) Ur Specific [place] (1.002-1.035) Urine Protein (NEG-TRACE) mg/dL Urine Glucose (UA) (NEG) mg/dL Urine Ketones (NEG) mg/dL Urine Occult Blood (NEG) Urine Nitrite (NEG) Urine Bilirubin (NEG) Urine Urobilinogen (LESS THAN 2) mg/dL Ur Leukocyte Esterase (NEG) Urine RBC (0-3) /hpf Urine WBC (0-5) /hpf Urine Bacteria (NONE) /hpf Micro UA Comment Nasal Screen MRSA (PCR) (NOT DETECT) Stl C.difficile Tox PCR (NEGATIVE) St C. diff Tox Epid 027 (NEGATIVE) Vancomycin Trough 18.4 H (5.0-10.0) MCG/ML 11/14/17 11/14/17 11/15/17 Range/Units 12:18 13:16 05:50 WBC 12.3 H (4.0-11.0) TH/MM3 RBC 3.93 L (4.50-5.90) MIL/MM3 Hgb 9.2 L (13.0-17.0) GM/DL Hct 29.5 L (39.0-51.0) % MCV 74.9 L (80.0-100.0) FL MCH 23.5 L (27.0-34.0) PG MCHC 31.3 L (32.0-36.0) % RDW 18.7 H (11.6-17.2) % Plt Count 351 D (150-450) TH/MM3 MPV 7.8 (7.0-11.0) FL Neut % (Auto) (16.0-70.0) % Lymph % (Auto) (9.0-44.0) % [place] % (Auto) (0.0-8.0) % Eos % (Auto) (0.0-4.0) % Baso % (Auto) (0.0-2.0) % Neut # (Auto) (1.8-7.7) TH/MM3 Lymph # (Auto) (1.0-4.8) TH/MM3 [place] # (Auto) (0-0.9) TH/MM3 Eos # (Auto) (0-0.4) TH/MM3 Baso # (Auto) (0-0.2) TH/MM3 CBC Comment WBC Differential Differential Comment ESR (0-20) mm/hr PT (9.8-11.6) SEC INR RATIO APTT (24.3-30.1) SEC Sodium 139 144 (136-145) MEQ/L Potassium 4.6 4.0 (3.5-5.1) MEQ/L Chloride 108 H 109 H (98-107) MEQ/L Carbon Dioxide 24.1 26.6 (21.0-32.0) MEQ/L Anion Gap 7 8 (5-15) MEQ/L BUN 14 19 H (7-18) MG/DL Creatinine 0.93 0.88 (0.60-1.30) MG/DL Estimated GFR 101 107 (>89) ML/MIN Random Glucose 116 H 97 (74-106) MG/DL Hemoglobin A1c (4.3-6.0) % Lactic Acid (0.4-2.0) mmol/L Calcium 8.6 8.1 L (8.5-10.1) MG/DL Phosphorus 1.0 L (2.5-4.9) MG/DL Magnesium 2.2 (1.5-2.5) MG/DL Total Bilirubin 0.1 L (0.2-1.0) MG/DL Direct Bilirubin (0.0-0.2) MG/DL Indirect Bilirubin (0.0-0.8) MG/DL AST 16 (15-37) U/L ALT 13 (12-78) U/L Alkaline Phosphatase 62 (45-117) U/L Creatine Kinase (44-196) U/L CK-MM (CK-3) % Total Creatine Kinase (39-308) U/L CK-MB (CK-2) % CK-BB (CK-1) % Troponin I (0.02-0.05) NG/ML C-Reactive Protein (0.00-0.30) MG/DL Total Protein 7.2 D (6.4-8.2) GM/DL Albumin 1.9 L (3.4-5.0) GM/DL Free T4 (0.76-1.46) NG/DL TSH 3rd Generation (0.358-3.740) uIU/ML Urine Color (YELLW/STRAW) Urine Turbidity (CLEAR) Urine pH (5.0-8.5) Ur Specific [place] (1.002-1.035) Urine Protein (NEG-TRACE) mg/dL Urine Glucose (UA) (NEG) mg/dL Urine Ketones (NEG) mg/dL Urine Occult Blood (NEG) Urine Nitrite (NEG) Urine Bilirubin (NEG) Urine Urobilinogen (LESS THAN 2) mg/dL Ur Leukocyte Esterase (NEG) Urine RBC (0-3) /hpf Urine WBC (0-5) /hpf Urine Bacteria (NONE) /hpf Micro UA Comment Nasal Screen MRSA (PCR) (NOT DETECT) Stl C.difficile Tox PCR (NEGATIVE) St C. diff Tox Epid 027 (NEGATIVE) Vancomycin Trough (5.0-10.0) MCG/ML 11/15/17 11/15/17 11/17/17 Range/Units 05:50 08:50 04:40 WBC 10.5 (4.0-11.0) TH/MM3 RBC 3.58 L (4.50-5.90) MIL/MM3 Hgb 8.6 L (13.0-17.0) GM/DL Hct 26.9 L (39.0-51.0) % MCV 75.3 L (80.0-100.0) FL MCH 23.9 L (27.0-34.0) PG MCHC 31.8 L (32.0-36.0) % RDW 18.9 H (11.6-17.2) % Plt Count 324 (150-450) TH/MM3 MPV 8.1 (7.0-11.0) FL Neut % (Auto) 78.4 H (16.0-70.0) % Lymph % (Auto) 13.9 (9.0-44.0) % [place] % (Auto) 7.7 (0.0-8.0) % Eos % (Auto) 0.0 (0.0-4.0) % Baso % (Auto) 0.0 (0.0-2.0) % Neut # (Auto) 8.2 H (1.8-7.7) TH/MM3 Lymph # (Auto) 1.5 (1.0-4.8) TH/MM3 [place] # (Auto) 0.8 (0-0.9) TH/MM3 Eos # (Auto) 0.0 (0-0.4) TH/MM3 Baso # (Auto) 0.0 (0-0.2) TH/MM3 CBC Comment DIFF FINAL WBC Differential Differential Comment ESR (0-20) mm/hr PT (9.8-11.6) SEC INR RATIO APTT (24.3-30.1) SEC Sodium 140 (136-145) MEQ/L Potassium 3.5 (3.5-5.1) MEQ/L Chloride 105 (98-107) MEQ/L Carbon Dioxide 27.8 (21.0-32.0) MEQ/L Anion Gap 7 (5-15) MEQ/L BUN 18 (7-18) MG/DL Creatinine 0.86 (0.60-1.30) MG/DL Estimated GFR 110 (>89) ML/MIN Random Glucose 121 H (74-106) MG/DL Hemoglobin A1c (4.3-6.0) % Lactic Acid (0.4-2.0) mmol/L Calcium 7.9 L (8.5-10.1) MG/DL Phosphorus (2.5-4.9) MG/DL Magnesium (1.5-2.5) MG/DL Total Bilirubin (0.2-1.0) MG/DL Direct Bilirubin (0.0-0.2) MG/DL Indirect Bilirubin (0.0-0.8) MG/DL AST (15-37) U/L ALT (12-78) U/L Alkaline Phosphatase (45-117) U/L Creatine Kinase (44-196) U/L CK-MM (CK-3) % Total Creatine Kinase 39 (39-308) U/L CK-MB (CK-2) % CK-BB (CK-1) % Troponin I (0.02-0.05) NG/ML C-Reactive Protein (0.00-0.30) MG/DL Total Protein (6.4-8.2) GM/DL Albumin (3.4-5.0) GM/DL Free T4 (0.76-1.46) NG/DL TSH 3rd Generation (0.358-3.740) uIU/ML Urine Color (YELLW/STRAW) Urine Turbidity (CLEAR) Urine pH (5.0-8.5) Ur Specific [place] (1.002-1.035) Urine Protein (NEG-TRACE) mg/dL Urine Glucose (UA) (NEG) mg/dL Urine Ketones (NEG) mg/dL Urine Occult Blood (NEG) Urine Nitrite (NEG) Urine Bilirubin (NEG) Urine Urobilinogen (LESS THAN 2) mg/dL Ur Leukocyte Esterase (NEG) Urine RBC (0-3) /hpf Urine WBC (0-5) /hpf Urine Bacteria (NONE) /hpf Micro UA Comment Nasal Screen MRSA (PCR) (NOT DETECT) Stl C.difficile Tox PCR (NEGATIVE) St C. diff Tox Epid 027 (NEGATIVE) Vancomycin Trough 18.7 H (5.0-10.0) MCG/ML 11/17/17 11/19/17 11/20/17 Range/Units 04:40 05:35 04:15 WBC 10.1 (4.0-11.0) TH/MM3 RBC 3.81 L (4.50-5.90) MIL/MM3 Hgb 9.1 L (13.0-17.0) GM/DL Hct 28.4 L (39.0-51.0) % MCV 74.6 L (80.0-100.0) FL MCH 24.0 L (27.0-34.0) PG MCHC 32.2 (32.0-36.0) % RDW 18.4 H (11.6-17.2) % Plt Count 361 (150-450) TH/MM3 MPV 7.7 (7.0-11.0) FL Neut % (Auto) 66.3 (16.0-70.0) % Lymph % (Auto) 23.1 (9.0-44.0) % [place] % (Auto) 10.1 H (0.0-8.0) % Eos % (Auto) 0.1 (0.0-4.0) % Baso % (Auto) 0.4 (0.0-2.0) % Neut # (Auto) 6.7 (1.8-7.7) TH/MM3 Lymph # (Auto) 2.3 (1.0-4.8) TH/MM3 [place] # (Auto) 1.0 H (0-0.9) TH/MM3 Eos # (Auto) 0.0 (0-0.4) TH/MM3 Baso # (Auto) 0.0 (0-0.2) TH/MM3 CBC Comment DIFF FINAL WBC Differential Differential Comment ESR (0-20) mm/hr PT (9.8-11.6) SEC INR RATIO APTT (24.3-30.1) SEC Sodium 141 (136-145) MEQ/L Potassium 3.8 (3.5-5.1) MEQ/L Chloride 103 (98-107) MEQ/L Carbon Dioxide 29.3 (21.0-32.0) MEQ/L Anion Gap 9 (5-15) MEQ/L BUN 24 H (7-18) MG/DL Creatinine 0.76 0.84 (0.60-1.30) MG/DL Estimated GFR 127 113 (>89) ML/MIN Random Glucose 121 H (74-106) MG/DL Hemoglobin A1c (4.3-6.0) % Lactic Acid (0.4-2.0) mmol/L Calcium 8.2 L (8.5-10.1) MG/DL Phosphorus (2.5-4.9) MG/DL Magnesium (1.5-2.5) MG/DL Total Bilirubin (0.2-1.0) MG/DL Direct Bilirubin (0.0-0.2) MG/DL Indirect Bilirubin (0.0-0.8) MG/DL AST (15-37) U/L ALT (12-78) U/L Alkaline Phosphatase (45-117) U/L Creatine Kinase (44-196) U/L CK-MM (CK-3) % Total Creatine Kinase (39-308) U/L CK-MB (CK-2) % CK-BB (CK-1) % Troponin I (0.02-0.05) NG/ML C-Reactive Protein (0.00-0.30) MG/DL Total Protein (6.4-8.2) GM/DL Albumin (3.4-5.0) GM/DL Free T4 (0.76-1.46) NG/DL TSH 3rd Generation (0.358-3.740) uIU/ML Urine Color (YELLW/STRAW) Urine Turbidity (CLEAR) Urine pH (5.0-8.5) Ur Specific [place] (1.002-1.035) Urine Protein (NEG-TRACE) mg/dL Urine Glucose (UA) (NEG) mg/dL Urine Ketones (NEG) mg/dL Urine Occult Blood (NEG) Urine Nitrite (NEG) Urine Bilirubin (NEG) Urine Urobilinogen (LESS THAN 2) mg/dL Ur Leukocyte Esterase (NEG) Urine RBC (0-3) /hpf Urine WBC (0-5) /hpf Urine Bacteria (NONE) /hpf Micro UA Comment Nasal Screen MRSA (PCR) (NOT DETECT) Stl C.difficile Tox PCR (NEGATIVE) St C. diff Tox Epid 027 (NEGATIVE) Vancomycin Trough (5.0-10.0) MCG/ML 11/21/17 11/21/17 11/21/17 Range/Units 06:06 06:06 19:00 WBC 9.3 (4.0-11.0) TH/MM3 RBC 4.09 L (4.50-5.90) MIL/MM3 Hgb 10.0 L (13.0-17.0) GM/DL Hct 31.1 L (39.0-51.0) % MCV 76.1 L (80.0-100.0) FL MCH 24.4 L (27.0-34.0) PG MCHC 32.0 (32.0-36.0) % RDW 21.2 H (11.6-17.2) % Plt Count 353 (150-450) TH/MM3 MPV 7.7 (7.0-11.0) FL Neut % (Auto) (16.0-70.0) % Lymph % (Auto) (9.0-44.0) % [place] % (Auto) (0.0-8.0) % Eos % (Auto) (0.0-4.0) % Baso % (Auto) (0.0-2.0) % Neut # (Auto) (1.8-7.7) TH/MM3 Lymph # (Auto) (1.0-4.8) TH/MM3 [place] # (Auto) (0-0.9) TH/MM3 Eos # (Auto) (0-0.4) TH/MM3 Baso # (Auto) (0-0.2) TH/MM3 CBC Comment WBC Differential Differential Comment ESR (0-20) mm/hr PT (9.8-11.6) SEC INR RATIO APTT (24.3-30.1) SEC Sodium 140 (136-145) MEQ/L Potassium 4.5 (3.5-5.1) MEQ/L Chloride 105 (98-107) MEQ/L Carbon Dioxide 27.1 (21.0-32.0) MEQ/L Anion Gap 8 (5-15) MEQ/L BUN 19 H (7-18) MG/DL Creatinine 0.70 (0.60-1.30) MG/DL Estimated GFR 140 (>89) ML/MIN Random Glucose 93 (74-106) MG/DL Hemoglobin A1c (4.3-6.0) % Lactic Acid (0.4-2.0) mmol/L Calcium 8.5 (8.5-10.1) MG/DL Phosphorus (2.5-4.9) MG/DL Magnesium (1.5-2.5) MG/DL Total Bilirubin (0.2-1.0) MG/DL Direct Bilirubin (0.0-0.2) MG/DL Indirect Bilirubin (0.0-0.8) MG/DL AST (15-37) U/L ALT (12-78) U/L Alkaline Phosphatase (45-117) U/L Creatine Kinase (44-196) U/L CK-MM (CK-3) % Total Creatine Kinase (39-308) U/L CK-MB (CK-2) % CK-BB (CK-1) % Troponin I (0.02-0.05) NG/ML C-Reactive Protein (0.00-0.30) MG/DL Total Protein (6.4-8.2) GM/DL Albumin (3.4-5.0) GM/DL Free T4 (0.76-1.46) NG/DL TSH 3rd Generation (0.358-3.740) uIU/ML Urine Color (YELLW/STRAW) Urine Turbidity (CLEAR) Urine pH (5.0-8.5) Ur Specific [place] (1.002-1.035) Urine Protein (NEG-TRACE) mg/dL Urine Glucose (UA) (NEG) mg/dL Urine Ketones (NEG) mg/dL Urine Occult Blood (NEG) Urine Nitrite (NEG) Urine Bilirubin (NEG) Urine Urobilinogen (LESS THAN 2) mg/dL Ur Leukocyte Esterase (NEG) Urine RBC (0-3) /hpf Urine WBC (0-5) /hpf Urine Bacteria (NONE) /hpf Micro UA Comment Nasal Screen MRSA (PCR) (NOT DETECT) Stl C.difficile Tox PCR NEGATIVE (NEGATIVE) St C. diff Tox Epid 027 PRESUMPTIVE NEGATIVE (NEGATIVE) Vancomycin Trough (5.0-10.0) MCG/ML 11/22/17 11/26/17 11/26/17 Range/Units 04:34 06:32 10:01 WBC (4.0-11.0) TH/MM3 RBC (4.50-5.90) MIL/MM3 Hgb (13.0-17.0) GM/DL Hct (39.0-51.0) % MCV (80.0-100.0) FL MCH (27.0-34.0) PG MCHC (32.0-36.0) % RDW (11.6-17.2) % Plt Count (150-450) TH/MM3 MPV (7.0-11.0) FL Neut % (Auto) (16.0-70.0) % Lymph % (Auto) (9.0-44.0) % [place] % (Auto) (0.0-8.0) % Eos % (Auto) (0.0-4.0) % Baso % (Auto) (0.0-2.0) % Neut # (Auto) (1.8-7.7) TH/MM3 Lymph # (Auto) (1.0-4.8) TH/MM3 [place] # (Auto) (0-0.9) TH/MM3 Eos # (Auto) (0-0.4) TH/MM3 Baso # (Auto) (0-0.2) TH/MM3 CBC Comment WBC Differential Differential Comment ESR 63 H (0-20) mm/hr PT (9.8-11.6) SEC INR RATIO APTT (24.3-30.1) SEC Sodium (136-145) MEQ/L Potassium (3.5-5.1) MEQ/L Chloride (98-107) MEQ/L Carbon Dioxide (21.0-32.0) MEQ/L Anion Gap (5-15) MEQ/L BUN (7-18) MG/DL Creatinine (0.60-1.30) MG/DL Estimated GFR (>89) ML/MIN Random Glucose (74-106) MG/DL Hemoglobin A1c (4.3-6.0) % Lactic Acid (0.4-2.0) mmol/L Calcium (8.5-10.1) MG/DL Phosphorus (2.5-4.9) MG/DL Magnesium (1.5-2.5) MG/DL Total Bilirubin 0.3 (0.2-1.0) MG/DL Direct Bilirubin 0.1 (0.0-0.2) MG/DL Indirect Bilirubin 0.2 (0.0-0.8) MG/DL AST 31 (15-37) U/L ALT 63 (12-78) U/L Alkaline Phosphatase 77 (45-117) U/L Creatine Kinase (44-196) U/L CK-MM (CK-3) % Total Creatine Kinase 39 (39-308) U/L CK-MB (CK-2) % CK-BB (CK-1) % Troponin I (0.02-0.05) NG/ML C-Reactive Protein LESS THAN 0.29 (0.00-0.30) MG/DL Total Protein 7.4 (6.4-8.2) GM/DL Albumin 2.5 L (3.4-5.0) GM/DL Free T4 (0.76-1.46) NG/DL TSH 3rd Generation (0.358-3.740) uIU/ML Urine Color (YELLW/STRAW) Urine Turbidity (CLEAR) Urine pH (5.0-8.5) Ur Specific [place] (1.002-1.035) Urine Protein (NEG-TRACE) mg/dL Urine Glucose (UA) (NEG) mg/dL Urine Ketones (NEG) mg/dL Urine Occult Blood (NEG) Urine Nitrite (NEG) Urine Bilirubin (NEG) Urine Urobilinogen (LESS THAN 2) mg/dL Ur Leukocyte Esterase (NEG) Urine RBC (0-3) /hpf Urine WBC (0-5) /hpf Urine Bacteria (NONE) /hpf Micro UA Comment Nasal Screen MRSA (PCR) (NOT DETECT) Stl C.difficile Tox PCR (NEGATIVE) St C. diff Tox Epid 027 (NEGATIVE) Vancomycin Trough (5.0-10.0) MCG/ML 11/29/17 11/29/17 12/05/17 Range/Units 06:47 06:47 06:08 WBC 8.7 (4.0-11.0) TH/MM3 RBC 4.50 (4.50-5.90) MIL/MM3 Hgb 11.3 L (13.0-17.0) GM/DL Hct 35.0 L (39.0-51.0) % MCV 77.8 L (80.0-100.0) FL MCH 25.0 L (27.0-34.0) PG MCHC 32.2 (32.0-36.0) % RDW 23.3 H (11.6-17.2) % Plt Count 261 (150-450) TH/MM3 MPV 8.1 (7.0-11.0) FL Neut % (Auto) (16.0-70.0) % Lymph % (Auto) (9.0-44.0) % [place] % (Auto) (0.0-8.0) % Eos % (Auto) (0.0-4.0) % Baso % (Auto) (0.0-2.0) % Neut # (Auto) (1.8-7.7) TH/MM3 Lymph # (Auto) (1.0-4.8) TH/MM3 [place] # (Auto) (0-0.9) TH/MM3 Eos # (Auto) (0-0.4) TH/MM3 Baso # (Auto) (0-0.2) TH/MM3 CBC Comment WBC Differential Differential Comment ESR (0-20) mm/hr PT (9.8-11.6) SEC INR RATIO APTT (24.3-30.1) SEC Sodium 139 140 (136-145) MEQ/L Potassium 4.3 3.7 (3.5-5.1) MEQ/L Chloride 104 106 (98-107) MEQ/L Carbon Dioxide 24.1 23.0 (21.0-32.0) MEQ/L Anion Gap 11 11 (5-15) MEQ/L BUN 27 H 23 H (7-18) MG/DL Creatinine 0.79 0.89 (0.60-1.30) MG/DL Estimated GFR 122 106 (>89) ML/MIN Random Glucose 96 101 (74-106) MG/DL Hemoglobin A1c 4.7 (4.3-6.0) % Lactic Acid (0.4-2.0) mmol/L Calcium 9.0 8.7 (8.5-10.1) MG/DL Phosphorus 2.9 (2.5-4.9) MG/DL Magnesium 2.2 2.3 (1.5-2.5) MG/DL Total Bilirubin 0.3 (0.2-1.0) MG/DL Direct Bilirubin (0.0-0.2) MG/DL Indirect Bilirubin (0.0-0.8) MG/DL AST 22 (15-37) U/L ALT 45 (12-78) U/L Alkaline Phosphatase 86 (45-117) U/L Creatine Kinase (44-196) U/L CK-MM (CK-3) % Total Creatine Kinase (39-308) U/L CK-MB (CK-2) % CK-BB (CK-1) % Troponin I (0.02-0.05) NG/ML C-Reactive Protein (0.00-0.30) MG/DL Total Protein 7.2 (6.4-8.2) GM/DL Albumin 2.5 L (3.4-5.0) GM/DL Free T4 0.78 (0.76-1.46) NG/DL TSH 3rd Generation 1.830 (0.358-3.740) uIU/ML Urine Color (YELLW/STRAW) Urine Turbidity (CLEAR) Urine pH (5.0-8.5) Ur Specific [place] (1.002-1.035) Urine Protein (NEG-TRACE) mg/dL Urine Glucose (UA) (NEG) mg/dL Urine Ketones (NEG) mg/dL Urine Occult Blood (NEG) Urine Nitrite (NEG) Urine Bilirubin (NEG) Urine Urobilinogen (LESS THAN 2) mg/dL Ur Leukocyte Esterase (NEG) Urine RBC (0-3) /hpf Urine WBC (0-5) /hpf Urine Bacteria (NONE) /hpf Micro UA Comment Nasal Screen MRSA (PCR) (NOT DETECT) Stl C.difficile Tox PCR (NEGATIVE) St C. diff Tox Epid 027 (NEGATIVE) Vancomycin Trough (5.0-10.0) MCG/ML 12/05/17 12/10/17 12/10/17 Range/Units 06:08 09:38 09:38 WBC 5.5 (4.0-11.0) TH/MM3 RBC 4.67 (4.50-5.90) MIL/MM3 Hgb 11.8 L (13.0-17.0) GM/DL Hct 36.6 L (39.0-51.0) % MCV 78.3 L (80.0-100.0) FL MCH 25.3 L (27.0-34.0) PG MCHC 32.3 (32.0-36.0) % RDW 23.8 H (11.6-17.2) % Plt Count 164 D (150-450) TH/MM3 MPV 8.7 (7.0-11.0) FL Neut % (Auto) 59.2 (16.0-70.0) % Lymph % (Auto) 17.8 (9.0-44.0) % [place] % (Auto) 10.0 H (0.0-8.0) % Eos % (Auto) 11.8 H (0.0-4.0) % Baso % (Auto) 1.2 (0.0-2.0) % Neut # (Auto) 3.2 (1.8-7.7) TH/MM3 Lymph # (Auto) 1.0 (1.0-4.8) TH/MM3 [place] # (Auto) 0.5 (0-0.9) TH/MM3 Eos # (Auto) 0.6 H (0-0.4) TH/MM3 Baso # (Auto) 0.1 (0-0.2) TH/MM3 CBC Comment DIFF FINAL WBC Differential Differential Comment ESR 65 H (0-20) mm/hr PT (9.8-11.6) SEC INR RATIO APTT (24.3-30.1) SEC Sodium 137 (136-145) MEQ/L Potassium 3.5 (3.5-5.1) MEQ/L Chloride 100 (98-107) MEQ/L Carbon Dioxide 24.9 (21.0-32.0) MEQ/L Anion Gap 12 (5-15) MEQ/L BUN 15 (7-18) MG/DL Creatinine 0.90 (0.60-1.30) MG/DL Estimated GFR 105 (>89) ML/MIN Random Glucose 101 (74-106) MG/DL Hemoglobin A1c (4.3-6.0) % Lactic Acid (0.4-2.0) mmol/L Calcium 8.7 (8.5-10.1) MG/DL Phosphorus (2.5-4.9) MG/DL Magnesium (1.5-2.5) MG/DL Total Bilirubin 0.4 (0.2-1.0) MG/DL Direct Bilirubin (0.0-0.2) MG/DL Indirect Bilirubin (0.0-0.8) MG/DL AST 23 (15-37) U/L ALT 40 (12-78) U/L Alkaline Phosphatase 75 (45-117) U/L Creatine Kinase (44-196) U/L CK-MM (CK-3) % Total Creatine Kinase 55 (39-308) U/L CK-MB (CK-2) % CK-BB (CK-1) % Troponin I (0.02-0.05) NG/ML C-Reactive Protein 15.50 H (0.00-0.30) MG/DL Total Protein 7.2 (6.4-8.2) GM/DL Albumin 2.2 L (3.4-5.0) GM/DL Free T4 (0.76-1.46) NG/DL TSH 3rd Generation (0.358-3.740) uIU/ML Urine Color (YELLW/STRAW) Urine Turbidity (CLEAR) Urine pH (5.0-8.5) Ur Specific [place] (1.002-1.035) Urine Protein (NEG-TRACE) mg/dL Urine Glucose (UA) (NEG) mg/dL Urine Ketones (NEG) mg/dL Urine Occult Blood (NEG) Urine Nitrite (NEG) Urine Bilirubin (NEG) Urine Urobilinogen (LESS THAN 2) mg/dL Ur Leukocyte Esterase (NEG) Urine RBC (0-3) /hpf Urine WBC (0-5) /hpf Urine Bacteria (NONE) /hpf Micro UA Comment Nasal Screen MRSA (PCR) (NOT DETECT) Stl C.difficile Tox PCR (NEGATIVE) St C. diff Tox Epid 027 (NEGATIVE) Vancomycin Trough (5.0-10.0) MCG/ML 12/17/17 12/17/17 12/17/17 Range/Units 16:00 16:50 17:10 WBC (4.0-11.0) TH/MM3 RBC (4.50-5.90) MIL/MM3 Hgb (13.0-17.0) GM/DL Hct (39.0-51.0) % MCV (80.0-100.0) FL MCH (27.0-34.0) PG MCHC (32.0-36.0) % RDW (11.6-17.2) % Plt Count (150-450) TH/MM3 MPV (7.0-11.0) FL Neut % (Auto) (16.0-70.0) % Lymph % (Auto) (9.0-44.0) % [place] % (Auto) (0.0-8.0) % Eos % (Auto) (0.0-4.0) % Baso % (Auto) (0.0-2.0) % Neut # (Auto) (1.8-7.7) TH/MM3 Lymph # (Auto) (1.0-4.8) TH/MM3 [place] # (Auto) (0-0.9) TH/MM3 Eos # (Auto) (0-0.4) TH/MM3 Baso # (Auto) (0-0.2) TH/MM3 CBC Comment WBC Differential Differential Comment ESR (0-20) mm/hr PT (9.8-11.6) SEC INR RATIO APTT (24.3-30.1) SEC Sodium (136-145) MEQ/L Potassium (3.5-5.1) MEQ/L Chloride (98-107) MEQ/L Carbon Dioxide (21.0-32.0) MEQ/L Anion Gap (5-15) MEQ/L BUN (7-18) MG/DL Creatinine (0.60-1.30) MG/DL Estimated GFR (>89) ML/MIN Random Glucose (74-106) MG/DL Hemoglobin A1c (4.3-6.0) % Lactic Acid (0.4-2.0) mmol/L Calcium (8.5-10.1) MG/DL Phosphorus (2.5-4.9) MG/DL Magnesium (1.5-2.5) MG/DL Total Bilirubin (0.2-1.0) MG/DL Direct Bilirubin (0.0-0.2) MG/DL Indirect Bilirubin (0.0-0.8) MG/DL AST (15-37) U/L ALT (12-78) U/L Alkaline Phosphatase (45-117) U/L Creatine Kinase (44-196) U/L CK-MM (CK-3) % Total Creatine Kinase 121 (39-308) U/L CK-MB (CK-2) % CK-BB (CK-1) % Troponin I LESS THAN 0.02 L (0.02-0.05) NG/ML C-Reactive Protein (0.00-0.30) MG/DL Total Protein (6.4-8.2) GM/DL Albumin (3.4-5.0) GM/DL Free T4 (0.76-1.46) NG/DL TSH 3rd Generation (0.358-3.740) uIU/ML Urine Color [place] (YELLW/STRAW) Urine Turbidity HAZY H (CLEAR) Urine pH 5.0 (5.0-8.5) Ur Specific [place] 1.023 (1.002-1.035) Urine Protein 30 H (NEG-TRACE) mg/dL Urine Glucose (UA) NEG (NEG) mg/dL Urine Ketones NEG (NEG) mg/dL Urine Occult Blood LARGE H (NEG) Urine Nitrite NEG (NEG) Urine Bilirubin NEG (NEG) Urine Urobilinogen LESS THAN 2 (LESS THAN 2) mg/dL Ur Leukocyte Esterase TRACE H (NEG) Urine RBC (0-3) /hpf Urine WBC 14 H (0-5) /hpf Urine Bacteria FEW H (NONE) /hpf Micro UA Comment CULTURE INDICATED Nasal Screen MRSA (PCR) (NOT DETECT) Stl C.difficile Tox PCR NEGATIVE (NEGATIVE) St C. diff Tox Epid 027 PRESUMPTIVE NEGATIVE (NEGATIVE) Vancomycin Trough (5.0-10.0) MCG/ML 12/20/17 12/23/17 12/23/17 Range/Units 12:20 21:09 21:09 WBC 11.9 H (4.0-11.0) TH/MM3 RBC 4.22 L (4.50-5.90) MIL/MM3 Hgb 10.5 L (13.0-17.0) GM/DL Hct 32.4 L (39.0-51.0) % MCV 76.9 L (80.0-100.0) FL MCH 24.9 L (27.0-34.0) PG MCHC 32.4 (32.0-36.0) % RDW 22.1 H (11.6-17.2) % Plt Count 476 H (150-450) TH/MM3 MPV 7.6 (7.0-11.0) FL Neut % (Auto) (16.0-70.0) % Lymph % (Auto) (9.0-44.0) % [place] % (Auto) (0.0-8.0) % Eos % (Auto) (0.0-4.0) % Baso % (Auto) (0.0-2.0) % Neut # (Auto) (1.8-7.7) TH/MM3 Lymph # (Auto) (1.0-4.8) TH/MM3 [place] # (Auto) (0-0.9) TH/MM3 Eos # (Auto) (0-0.4) TH/MM3 Baso # (Auto) (0-0.2) TH/MM3 CBC Comment WBC Differential Differential Comment ESR (0-20) mm/hr PT (9.8-11.6) SEC INR RATIO APTT (24.3-30.1) SEC Sodium 138 (136-145) MEQ/L Potassium 3.9 (3.5-5.1) MEQ/L Chloride 102 (98-107) MEQ/L Carbon Dioxide 24.1 (21.0-32.0) MEQ/L Anion Gap 12 (5-15) MEQ/L BUN 16 (7-18) MG/DL Creatinine 1.06 (0.60-1.30) MG/DL Estimated GFR 87 L (>89) ML/MIN Random Glucose 88 (74-106) MG/DL Hemoglobin A1c (4.3-6.0) % Lactic Acid (0.4-2.0) mmol/L Calcium 9.7 (8.5-10.1) MG/DL Phosphorus (2.5-4.9) MG/DL Magnesium (1.5-2.5) MG/DL Total Bilirubin 0.2 (0.2-1.0) MG/DL Direct Bilirubin (0.0-0.2) MG/DL Indirect Bilirubin (0.0-0.8) MG/DL AST 65 H (15-37) U/L ALT 99 H (12-78) U/L Alkaline Phosphatase 84 (45-117) U/L Creatine Kinase (44-196) U/L CK-MM (CK-3) % Total Creatine Kinase (39-308) U/L CK-MB (CK-2) % CK-BB (CK-1) % Troponin I (0.02-0.05) NG/ML C-Reactive Protein 4.80 H (0.00-0.30) MG/DL Total Protein 9.4 H (6.4-8.2) GM/DL Albumin 2.4 L (3.4-5.0) GM/DL Free T4 (0.76-1.46) NG/DL TSH 3rd Generation (0.358-3.740) uIU/ML Urine Color (YELLW/STRAW) Urine Turbidity (CLEAR) Urine pH (5.0-8.5) Ur Specific [place] (1.002-1.035) Urine Protein (NEG-TRACE) mg/dL Urine Glucose (UA) (NEG) mg/dL Urine Ketones (NEG) mg/dL Urine Occult Blood (NEG) Urine Nitrite (NEG) Urine Bilirubin (NEG) Urine Urobilinogen (LESS THAN 2) mg/dL Ur Leukocyte Esterase (NEG) Urine RBC (0-3) /hpf Urine WBC (0-5) /hpf Urine Bacteria (NONE) /hpf Micro UA Comment Nasal Screen MRSA (PCR) (NOT DETECT) Stl C.difficile Tox PCR (NEGATIVE) St C. diff Tox Epid 027 (NEGATIVE) Vancomycin Trough (5.0-10.0) MCG/ML 12/23/17 12/27/17 12/27/17 Range/Units 21:09 10:50 10:50 WBC 5.2 (4.0-11.0) TH/MM3 RBC 4.80 (4.50-5.90) MIL/MM3 Hgb 12.2 L (13.0-17.0) GM/DL Hct 37.2 L (39.0-51.0) % MCV 77.4 L (80.0-100.0) FL MCH 25.4 L (27.0-34.0) PG MCHC 32.9 (32.0-36.0) % RDW 22.7 H (11.6-17.2) % Plt Count 319 D (150-450) TH/MM3 MPV 7.7 (7.0-11.0) FL Neut % (Auto) 41.7 (16.0-70.0) % Lymph % (Auto) 37.1 (9.0-44.0) % [place] % (Auto) 11.2 H (0.0-8.0) % Eos % (Auto) 8.8 H (0.0-4.0) % Baso % (Auto) 1.2 (0.0-2.0) % Neut # (Auto) 2.2 (1.8-7.7) TH/MM3 Lymph # (Auto) 1.9 (1.0-4.8) TH/MM3 [place] # (Auto) 0.6 (0-0.9) TH/MM3 Eos # (Auto) 0.5 H (0-0.4) TH/MM3 Baso # (Auto) 0.1 (0-0.2) TH/MM3 CBC Comment WBC Differential . Differential Comment Auto diff final ESR (0-20) mm/hr PT (9.8-11.6) SEC INR RATIO APTT (24.3-30.1) SEC Sodium (136-145) MEQ/L Potassium (3.5-5.1) MEQ/L Chloride (98-107) MEQ/L Carbon Dioxide (21.0-32.0) MEQ/L Anion Gap (5-15) MEQ/L BUN (7-18) MG/DL Creatinine (0.60-1.30) MG/DL Estimated GFR (>89) ML/MIN Random Glucose (74-106) MG/DL Hemoglobin A1c (4.3-6.0) % Lactic Acid (0.4-2.0) mmol/L Calcium (8.5-10.1) MG/DL Phosphorus (2.5-4.9) MG/DL Magnesium (1.5-2.5) MG/DL Total Bilirubin 0.2 (0.2-1.0) MG/DL Direct Bilirubin 0.1 (0.0-0.2) MG/DL Indirect Bilirubin 0.1 (0.0-0.8) MG/DL AST 38 H (15-37) U/L ALT 70 (12-78) U/L Alkaline Phosphatase 76 (45-117) U/L Creatine Kinase 123.0 (44-196) U/L CK-MM (CK-3) % 100 Total Creatine Kinase (39-308) U/L CK-MB (CK-2) % 0 CK-BB (CK-1) % 0 Troponin I (0.02-0.05) NG/ML C-Reactive Protein (0.00-0.30) MG/DL Total Protein 8.8 H D (6.4-8.2) GM/DL Albumin 2.5 L (3.4-5.0) GM/DL Free T4 (0.76-1.46) NG/DL TSH 3rd Generation (0.358-3.740) uIU/ML Urine Color (YELLW/STRAW) Urine Turbidity (CLEAR) Urine pH (5.0-8.5) Ur Specific [place] (1.002-1.035) Urine Protein (NEG-TRACE) mg/dL Urine Glucose (UA) (NEG) mg/dL Urine Ketones (NEG) mg/dL Urine Occult Blood (NEG) Urine Nitrite (NEG) Urine Bilirubin (NEG) Urine Urobilinogen (LESS THAN 2) mg/dL Ur Leukocyte Esterase (NEG) Urine RBC (0-3) /hpf Urine WBC (0-5) /hpf Urine Bacteria (NONE) /hpf Micro UA Comment Nasal Screen MRSA (PCR) (NOT DETECT) Stl C.difficile Tox PCR (NEGATIVE) St C. diff Tox Epid 027 (NEGATIVE) Vancomycin Trough (5.0-10.0) MCG/ML 12/27/17 12/30/17 12/30/17 Range/Units 10:50 06:38 06:38 WBC 6.5 (4.0-11.0) TH/MM3 RBC 4.79 (4.50-5.90) MIL/MM3 Hgb 12.1 L (13.0-17.0) GM/DL Hct 37.2 L (39.0-51.0) % MCV 77.7 L (80.0-100.0) FL MCH 25.2 L (27.0-34.0) PG MCHC 32.5 (32.0-36.0) % RDW 22.9 H (11.6-17.2) % Plt Count 292 (150-450) TH/MM3 MPV 8.3 (7.0-11.0) FL Neut % (Auto) (16.0-70.0) % Lymph % (Auto) (9.0-44.0) % [place] % (Auto) (0.0-8.0) % Eos % (Auto) (0.0-4.0) % Baso % (Auto) (0.0-2.0) % Neut # (Auto) (1.8-7.7) TH/MM3 Lymph # (Auto) (1.0-4.8) TH/MM3 [place] # (Auto) (0-0.9) TH/MM3 Eos # (Auto) (0-0.4) TH/MM3 Baso # (Auto) (0-0.2) TH/MM3 CBC Comment WBC Differential Differential Comment ESR (0-20) mm/hr PT (9.8-11.6) SEC INR RATIO APTT (24.3-30.1) SEC Sodium 138 140 (136-145) MEQ/L Potassium 4.0 3.9 (3.5-5.1) MEQ/L Chloride 102 104 (98-107) MEQ/L Carbon Dioxide 26.0 26.9 (21.0-32.0) MEQ/L Anion Gap 10 9 (5-15) MEQ/L BUN 15 19 H (7-18) MG/DL Creatinine 1.04 0.89 (0.60-1.30) MG/DL Estimated GFR 89 Greater than 89 (>89) ML/MIN Random Glucose 105 77 (74-106) MG/DL Hemoglobin A1c (4.3-6.0) % Lactic Acid (0.4-2.0) mmol/L Calcium 9.2 9.4 (8.5-10.1) MG/DL Phosphorus (2.5-4.9) MG/DL Magnesium (1.5-2.5) MG/DL Total Bilirubin 0.2 (0.2-1.0) MG/DL Direct Bilirubin 0.1 (0.0-0.2) MG/DL Indirect Bilirubin 0.1 (0.0-0.8) MG/DL AST 26 (15-37) U/L ALT 48 (12-78) U/L Alkaline Phosphatase 74 (45-117) U/L Creatine Kinase (44-196) U/L CK-MM (CK-3) % Total Creatine Kinase (39-308) U/L CK-MB (CK-2) % CK-BB (CK-1) % Troponin I (0.02-0.05) NG/ML C-Reactive Protein (0.00-0.30) MG/DL Total Protein 8.3 H (6.4-8.2) GM/DL Albumin 2.5 L (3.4-5.0) GM/DL Free T4 (0.76-1.46) NG/DL TSH 3rd Generation (0.358-3.740) uIU/ML Urine Color (YELLW/STRAW) Urine Turbidity (CLEAR) Urine pH (5.0-8.5) Ur Specific [place] (1.002-1.035) Urine Protein (NEG-TRACE) mg/dL Urine Glucose (UA) (NEG) mg/dL Urine Ketones (NEG) mg/dL Urine Occult Blood (NEG) Urine Nitrite (NEG) Urine Bilirubin (NEG) Urine Urobilinogen (LESS THAN 2) mg/dL Ur Leukocyte Esterase (NEG) Urine RBC (0-3) /hpf Urine WBC (0-5) /hpf Urine Bacteria (NONE) /hpf Micro UA Comment Nasal Screen MRSA (PCR) (NOT DETECT) Stl C.difficile Tox PCR (NEGATIVE) St C. diff Tox Epid 027 (NEGATIVE) Vancomycin Trough (5.0-10.0) MCG/ML 12/30/17 12/31/17 01/03/18 Range/Units 06:38 06:38 10:14 WBC (4.0-11.0) TH/MM3 RBC (4.50-5.90) MIL/MM3 Hgb (13.0-17.0) GM/DL Hct (39.0-51.0) % MCV (80.0-100.0) FL MCH (27.0-34.0) PG MCHC (32.0-36.0) % RDW (11.6-17.2) % Plt Count (150-450) TH/MM3 MPV (7.0-11.0) FL Neut % (Auto) (16.0-70.0) % Lymph % (Auto) (9.0-44.0) % [place] % (Auto) (0.0-8.0) % Eos % (Auto) (0.0-4.0) % Baso % (Auto) (0.0-2.0) % Neut # (Auto) (1.8-7.7) TH/MM3 Lymph # (Auto) (1.0-4.8) TH/MM3 [place] # (Auto) (0-0.9) TH/MM3 Eos # (Auto) (0-0.4) TH/MM3 Baso # (Auto) (0-0.2) TH/MM3 CBC Comment WBC Differential Differential Comment ESR (0-20) mm/hr PT (9.8-11.6) SEC INR RATIO APTT (24.3-30.1) SEC Sodium 139 (136-145) MEQ/L Potassium 4.0 (3.5-5.1) MEQ/L Chloride 104 (98-107) MEQ/L Carbon Dioxide 26.2 (21.0-32.0) MEQ/L Anion Gap 9 (5-15) MEQ/L BUN 15 (7-18) MG/DL Creatinine 0.94 (0.60-1.30) MG/DL Estimated GFR Greater than 89 (>89) ML/MIN Random Glucose 87 (74-106) MG/DL Hemoglobin A1c (4.3-6.0) % Lactic Acid (0.4-2.0) mmol/L Calcium 9.4 (8.5-10.1) MG/DL Phosphorus (2.5-4.9) MG/DL Magnesium (1.5-2.5) MG/DL Total Bilirubin 0.2 (0.2-1.0) MG/DL Direct Bilirubin (0.0-0.2) MG/DL Indirect Bilirubin (0.0-0.8) MG/DL AST 23 (15-37) U/L ALT 41 (12-78) U/L Alkaline Phosphatase 79 (45-117) U/L Creatine Kinase 53.0 (44-196) U/L CK-MM (CK-3) % 100 Total Creatine Kinase Cancelled (39-308) U/L CK-MB (CK-2) % 0 CK-BB (CK-1) % Troponin I (0.02-0.05) NG/ML C-Reactive Protein (0.00-0.30) MG/DL Total Protein 8.6 H (6.4-8.2) GM/DL Albumin 2.8 L (3.4-5.0) GM/DL Free T4 (0.76-1.46) NG/DL TSH 3rd Generation (0.358-3.740) uIU/ML Urine Color (YELLW/STRAW) Urine Turbidity (CLEAR) Urine pH (5.0-8.5) Ur Specific [place] (1.002-1.035) Urine Protein (NEG-TRACE) mg/dL Urine Glucose (UA) (NEG) mg/dL Urine Ketones (NEG) mg/dL Urine Occult Blood (NEG) Urine Nitrite (NEG) Urine Bilirubin (NEG) Urine Urobilinogen (LESS THAN 2) mg/dL Ur Leukocyte Esterase (NEG) Urine RBC (0-3) /hpf Urine WBC (0-5) /hpf Urine Bacteria (NONE) /hpf Micro UA Comment Nasal Screen MRSA (PCR) (NOT DETECT) Stl C.difficile Tox PCR (NEGATIVE) St C. diff Tox Epid 027 (NEGATIVE) Vancomycin Trough (5.0-10.0) MCG/ML 01/03/18 01/06/18 01/09/18 Range/Units 12:20 21:23 05:59 WBC 6.4 (4.0-11.0) TH/MM3 RBC 5.20 (4.50-5.90) MIL/MM3 Hgb 12.7 L (13.0-17.0) GM/DL Hct 40.0 (39.0-51.0) % MCV 77.0 L (80.0-100.0) FL MCH 24.4 L (27.0-34.0) PG MCHC 31.7 L (32.0-36.0) % RDW 22.1 H (11.6-17.2) % Plt Count 294 (150-450) TH/MM3 MPV 8.2 (7.0-11.0) FL Neut % (Auto) 41.2 (16.0-70.0) % Lymph % (Auto) 36.1 (9.0-44.0) % [place] % (Auto) 9.3 H (0.0-8.0) % Eos % (Auto) 12.3 H (0.0-4.0) % Baso % (Auto) 1.1 (0.0-2.0) % Neut # (Auto) 2.7 (1.8-7.7) TH/MM3 Lymph # (Auto) 2.3 (1.0-4.8) TH/MM3 [place] # (Auto) 0.6 (0-0.9) TH/MM3 Eos # (Auto) 0.8 H (0-0.4) TH/MM3 Baso # (Auto) 0.1 (0-0.2) TH/MM3 CBC Comment WBC Differential . Differential Comment Auto diff final ESR 67 H (0-20) mm/hr PT (9.8-11.6) SEC INR RATIO APTT (24.3-30.1) SEC Sodium (136-145) MEQ/L Potassium (3.5-5.1) MEQ/L Chloride (98-107) MEQ/L Carbon Dioxide (21.0-32.0) MEQ/L Anion Gap (5-15) MEQ/L BUN (7-18) MG/DL Creatinine (0.60-1.30) MG/DL Estimated GFR (>89) ML/MIN Random Glucose (74-106) MG/DL Hemoglobin A1c (4.3-6.0) % Lactic Acid (0.4-2.0) mmol/L Calcium (8.5-10.1) MG/DL Phosphorus (2.5-4.9) MG/DL Magnesium (1.5-2.5) MG/DL Total Bilirubin (0.2-1.0) MG/DL Direct Bilirubin (0.0-0.2) MG/DL Indirect Bilirubin (0.0-0.8) MG/DL AST (15-37) U/L ALT (12-78) U/L Alkaline Phosphatase (45-117) U/L Creatine Kinase (44-196) U/L CK-MM (CK-3) % Total Creatine Kinase 31 L (39-308) U/L CK-MB (CK-2) % CK-BB (CK-1) % Troponin I (0.02-0.05) NG/ML C-Reactive Protein (0.00-0.30) MG/DL Total Protein (6.4-8.2) GM/DL Albumin (3.4-5.0) GM/DL Free T4 (0.76-1.46) NG/DL TSH 3rd Generation (0.358-3.740) uIU/ML Urine Color (YELLW/STRAW) Urine Turbidity (CLEAR) Urine pH (5.0-8.5) Ur Specific [place] (1.002-1.035) Urine Protein (NEG-TRACE) mg/dL Urine Glucose (UA) (NEG) mg/dL Urine Ketones (NEG) mg/dL Urine Occult Blood (NEG) Urine Nitrite (NEG) Urine Bilirubin (NEG) Urine Urobilinogen (LESS THAN 2) mg/dL Ur Leukocyte Esterase (NEG) Urine RBC (0-3) /hpf Urine WBC (0-5) /hpf Urine Bacteria (NONE) /hpf Micro UA Comment Nasal Screen MRSA (PCR) (NOT DETECT) Stl C.difficile Tox PCR (NEGATIVE) St C. diff Tox Epid 027 (NEGATIVE) Vancomycin Trough (5.0-10.0) MCG/ML 01/09/18 01/13/18 01/13/18 Range/Units 05:59 12:10 12:10 WBC 6.6 (4.0-11.0) TH/MM3 RBC 4.69 (4.50-5.90) MIL/MM3 Hgb 12.0 L (13.0-17.0) GM/DL Hct 36.7 L (39.0-51.0) % MCV 78.4 L (80.0-100.0) FL MCH 25.6 L (27.0-34.0) PG MCHC 32.6 (32.0-36.0) % RDW 23.2 H (11.6-17.2) % Plt Count 202 D (150-450) TH/MM3 MPV 8.7 (7.0-11.0) FL Neut % (Auto) (16.0-70.0) % Lymph % (Auto) (9.0-44.0) % [place] % (Auto) (0.0-8.0) % Eos % (Auto) (0.0-4.0) % Baso % (Auto) (0.0-2.0) % Neut # (Auto) (1.8-7.7) TH/MM3 Lymph # (Auto) (1.0-4.8) TH/MM3 [place] # (Auto) (0-0.9) TH/MM3 Eos # (Auto) (0-0.4) TH/MM3 Baso # (Auto) (0-0.2) TH/MM3 CBC Comment WBC Differential Differential Comment ESR (0-20) mm/hr PT (9.8-11.6) SEC INR RATIO APTT (24.3-30.1) SEC Sodium 143 (136-145) MEQ/L Potassium 3.6 (3.5-5.1) MEQ/L Chloride 108 H (98-107) MEQ/L Carbon Dioxide 29.8 (21.0-32.0) MEQ/L Anion Gap 5 (5-15) MEQ/L BUN 15 (7-18) MG/DL Creatinine 0.98 (0.60-1.30) MG/DL Estimated GFR Greater than 89 (>89) ML/MIN Random Glucose 113 H (74-106) MG/DL Hemoglobin A1c (4.3-6.0) % Lactic Acid (0.4-2.0) mmol/L Calcium 9.0 (8.5-10.1) MG/DL Phosphorus (2.5-4.9) MG/DL Magnesium (1.5-2.5) MG/DL Total Bilirubin 0.2 (0.2-1.0) MG/DL Direct Bilirubin 0.1 (0.0-0.2) MG/DL Indirect Bilirubin 0.1 (0.0-0.8) MG/DL AST 14 L (15-37) U/L ALT 25 (12-78) U/L Alkaline Phosphatase 72 (45-117) U/L Creatine Kinase (44-196) U/L CK-MM (CK-3) % Total Creatine Kinase 108 79 (39-308) U/L CK-MB (CK-2) % CK-BB (CK-1) % Troponin I (0.02-0.05) NG/ML C-Reactive Protein (0.00-0.30) MG/DL Total Protein 7.7 (6.4-8.2) GM/DL Albumin 2.7 L (3.4-5.0) GM/DL Free T4 (0.76-1.46) NG/DL TSH 3rd Generation (0.358-3.740) uIU/ML Urine Color (YELLW/STRAW) Urine Turbidity (CLEAR) Urine pH (5.0-8.5) Ur Specific [place] (1.002-1.035) Urine Protein (NEG-TRACE) mg/dL Urine Glucose (UA) (NEG) mg/dL Urine Ketones (NEG) mg/dL Urine Occult Blood (NEG) Urine Nitrite (NEG) Urine Bilirubin (NEG) Urine Urobilinogen (LESS THAN 2) mg/dL Ur Leukocyte Esterase (NEG) Urine RBC (0-3) /hpf Urine WBC (0-5) /hpf Urine Bacteria (NONE) /hpf Micro UA Comment Nasal Screen MRSA (PCR) (NOT DETECT) Stl C.difficile Tox PCR (NEGATIVE) St C. diff Tox Epid 027 (NEGATIVE) Vancomycin Trough (5.0-10.0) MCG/ML 01/13/18 Range/Units 12:10 WBC (4.0-11.0) TH/MM3 RBC (4.50-5.90) MIL/MM3 Hgb (13.0-17.0) GM/DL Hct (39.0-51.0) % MCV (80.0-100.0) FL MCH (27.0-34.0) PG MCHC (32.0-36.0) % RDW (11.6-17.2) % Plt Count (150-450) TH/MM3 MPV (7.0-11.0) FL Neut % (Auto) (16.0-70.0) % Lymph % (Auto) (9.0-44.0) % [place] % (Auto) (0.0-8.0) % Eos % (Auto) (0.0-4.0) % Baso % (Auto) (0.0-2.0) % Neut # (Auto) (1.8-7.7) TH/MM3 Lymph # (Auto) (1.0-4.8) TH/MM3 [place] # (Auto) (0-0.9) TH/MM3 Eos # (Auto) (0-0.4) TH/MM3 Baso # (Auto) (0-0.2) TH/MM3 CBC Comment WBC Differential Differential Comment ESR (0-20) mm/hr PT (9.8-11.6) SEC INR RATIO APTT (24.3-30.1) SEC Sodium (136-145) MEQ/L Potassium (3.5-5.1) MEQ/L Chloride (98-107) MEQ/L Carbon Dioxide (21.0-32.0) MEQ/L Anion Gap (5-15) MEQ/L BUN (7-18) MG/DL Creatinine (0.60-1.30) MG/DL Estimated GFR (>89) ML/MIN Random Glucose (74-106) MG/DL Hemoglobin A1c (4.3-6.0) % Lactic Acid (0.4-2.0) mmol/L Calcium (8.5-10.1) MG/DL Phosphorus (2.5-4.9) MG/DL Magnesium (1.5-2.5) MG/DL Total Bilirubin Cancelled (0.2-1.0) MG/DL Direct Bilirubin Cancelled (0.0-0.2) MG/DL Indirect Bilirubin Cancelled (0.0-0.8) MG/DL AST Cancelled (15-37) U/L ALT Cancelled (12-78) U/L Alkaline Phosphatase Cancelled (45-117) U/L Creatine Kinase (44-196) U/L CK-MM (CK-3) % Total Creatine Kinase Cancelled (39-308) U/L CK-MB (CK-2) % CK-BB (CK-1) % Troponin I (0.02-0.05) NG/ML C-Reactive Protein (0.00-0.30) MG/DL Total Protein Cancelled (6.4-8.2) GM/DL Albumin Cancelled (3.4-5.0) GM/DL Free T4 (0.76-1.46) NG/DL TSH 3rd Generation (0.358-3.740) uIU/ML Urine Color (YELLW/STRAW) Urine Turbidity (CLEAR) Urine pH (5.0-8.5) Ur Specific [place] (1.002-1.035) Urine Protein (NEG-TRACE) mg/dL Urine Glucose (UA) (NEG) mg/dL Urine Ketones (NEG) mg/dL Urine Occult Blood (NEG) Urine Nitrite (NEG) Urine Bilirubin (NEG) Urine Urobilinogen (LESS THAN 2) mg/dL Ur Leukocyte Esterase (NEG) Urine RBC (0-3) /hpf Urine WBC (0-5) /hpf Urine Bacteria (NONE) /hpf Micro UA Comment Nasal Screen MRSA (PCR) (NOT DETECT) Stl C.difficile Tox PCR (NEGATIVE) St C. diff Tox Epid 027 (NEGATIVE) Vancomycin Trough (5.0-10.0) MCG/ML Imaging Data Radiologist's impression: Videofluoroscopic Swallow 01/07/18 00:00 CONCLUSION: For a full detailed report, see report by the speech pathologist. Cervical Spine CT 01/08/18 08:00 CONCLUSION: 1. Patient is status post anterior cervical fusion from C3 through C6 with good solid bony fusion. 2. There is anterior cervical fusion at C7-T1. 3. Posterior fusion from C3 through C7. 4. Mild broad-based bulging with disc osteophyte complex at C2-3. Discharge Plan Discharge Condition Condition: Good Discharge Order Discharge Orders: Discharge Order (Routine); Ordered 01/11/18 Ordered By: Nanci Reynoso Discharge Details Anticipated Discharge Date: 01/13/18 Discharge Comment: d/c once placement is ready Physicians Team ED Provider: Taylor Handley Primary Care Provider: Phil Polanco Attending Provider: Shellie Brian Other Providers: Stacey Kruger ; [facility] ; [facility] ; Erasto Kern ; [facility] Status ED Status: Admitted Patient
== END 2018-01-14 11:28 ==
LOC: N05 22:39
PROVIDERS: ADMIT Internal Medicine; ATTEND Internal Medicine